=== PATIENT | female | born 1975 | race Caucasian/White ===

== ENCOUNTER 2023-04-29 18:06 | Emergency (ER) | payer OTHER, SELFPAY ==
[2023-04-29 18:23] VITALS: BP 124/87; PULSE 63; RESP 18; TEMP 36.6; O2SAT 97; BMI 30.1
--- NOTE | 2023-04-29 18:37 | XR_ITS ---
The [address] [address] Patient Name: LARRY TAM MRN: [id number] date: 1975 Sex: F Assigned Patient Location: ER Current Patient Location: ED.MAIN Accession/Order Number: [id number] Exam Date: 04/29/2023 18:43 Report Date: 04/29/2023 19:35 At the request of: JACOB OQUENDO Procedure: XR finger LT min 2V PLAIN FILM OF FINGER LEFT HISTORY: Smashed left index finger in a door in a 47-year-old female TECHNIQUE: 3 of the left index finger are submitted for review. COMPARISON: None. FINDINGS: There is an osseous avulsion seen involving the base of the base of the distal phalanx with intra-articular extension. Physis is fused. Soft tissues are edematous.. Bone mineralization is within normal limits. Joint spaces are otherwise maintained. IMPRESSION: Volar plate injury of the base of the anterior left distal phalanx index finger left hand. Please correlate clinically to exclude open fracture given its approximation with the inferior nailbed. Electronically authenticated by: KEITH LASSITER Date: 04/29/2023 19:35
--- NOTE | 2023-04-29 18:58 | ED_ITS ---
HPI - Extremity Injury (Upper) General Chief Complaint: Extremity Injury, Upper Stated Complaint: upper left hand Time Seen by Provider: 04/29/23 18:36 Source: patient and family Mode of arrival: walk-in Limitations: no limitations History of Present Illness HPI narrative: Patient is a 47-year-old female left-hand dominant who presents to the Emergency Room with concerns of left index finger pain. Patient states prior to arrival she shut her finger in a car door, no skin injury. Pain 8/10 throbbing aching localized to the distal tip of her left index finger. There is a slight droop noted. Patient works at a local [employer]. Patient given ice pack on arrival. Other Extremity Injury: Left: fingers (Index finger) Hand dominance: left Place: Reports outdoors Severity: moderate Relieving factors: Reports none Related Data Home Medications Medication Instructions Recorded Confirmed clobetasol 0.05 % scalp solution 1 applic topical DAILY 04/30/23 05/01/23 ferrous sulfate 143 mg (45 mg 143 mg PO DAILY 04/30/23 05/01/23 iron) tablet,extended release (Slow Release Iron) gabapentin 600 mg tablet 600 mg PO BID 04/30/23 05/01/23 ibuprofen 800 mg tablet 800 mg PO Q6H PRN pain 04/30/23 05/01/23 liothyronine 5 mcg tablet 10 mcg PO DAILY 04/30/23 05/01/23 metoprolol succinate 100 mg 150 mg PO DAILY 04/30/23 05/01/23 tablet,extended release 24 hr pantoprazole 40 mg tablet,delayed 40 mg PO BID 04/30/23 05/01/23 release prazosin 5 mg capsule 5 mg PO DAILY 04/30/23 05/01/23 progesterone 100 mg PO .QD 04/30/23 05/01/23 simvastatin 40 mg tablet 40 mg PO DAILY 04/30/23 05/01/23 cholecalciferol (vitamin D3) 125 125 mcg PO DAILY 05/01/23 05/01/23 mcg (5,000 unit) capsule ezetimibe 10 mg tablet 10 mg PO DAILY 05/01/23 05/01/23 lurasidone 20 mg tablet (Latuda) 20 mg PO DAILY 05/01/23 05/01/23 albuterol 90 mcg/actuation aerosol 90 mcg inhalation Q4H PRN 05/02/23 05/02/23 inhaler shortness of breath budesonide-formoterol HFA 160 2 inh inhalation BID 05/02/23 05/02/23 mcg-4.5 mcg/actuation aerosol inhaler ketoconazole 2 % shampoo 1 applic topical DAILY 05/02/23 05/02/23 sucralfate 1 gram tablet 1 g PO Q6H 05/02/23 05/02/23 tiotropium bromide 1.25 2 inh inhalation DAILY 05/02/23 05/02/23 mcg/actuation mist for inhalation (Spiriva Respimat) Previous Rx's Medication Instructions Recorded aspirin 325 mg tablet 81 mg PO QD@0900 #30 tabs 05/03/23 Allergies Allergy/AdvReac Type Severity Reaction Status Date / Time Sulfa (Sulfonamide Allergy Severe Anaphylaxis Verified 05/01/23 11:55 Antibiotics) clarithromycin [From Biaxin] AdvReac Severe Verified 05/01/23 11:43 lamotrigine [From Lamictal] AdvReac Severe Verified 05/01/23 11:43 Penicillins AdvReac Severe Verified 05/01/23 11:43 Review of Systems ROS Constitutional Denies: fever or chills Integumentary/Breast Denies: rash [facility] Medical History (Updated 05/01/23 @ 15:06 by Migdalia Giang MD) Surgical History (Updated 04/30/23 @ 14:57 by Dannielle Cleveland) Social History Gender Identity: female Exam Narrative Exam Narrative: Nurse's notes and vital signs reviewed. Patient is not hypoxic. General: The patient appears well and in no apparent distress. Patient is resting comfortably on cart. Skin: Warm, dry, no pallor noted. Head: Normocephalic, atraumatic Eye: Normal conjunctiva Respiratory: Patient is in no distress Musculoskeletal: The left hand shows no obvious deformity. There is slight droop of the distal phalanx of the left index finger with bruising noted to the base of the nail matrix, no evidence of nail avulsion. There was minimal swelling noted dip joint. The patient had limited ROM due to pain. The patient had tenderness noted on the dorsal aspect of distal phalanx.. The patient had no tenderness in the anatomical snuff box. The patient had no pain with axial loading of the thumb. Pulses are intact at brachial and radial 2+. There was no deficit at the elbow or shoulder. The patient has normal capillary refill to all distal digits. The patient has no evidence of cyanosis or mottling. The patient is able to flex and extend all digits without difficulty. Neurological: A&O x4, normal sensory, normal motor Psychiatric: Cooperative Constitutional Vital Signs, click to edit/add: Vital Signs - 24 hr 04/29/23 18:23 Temperature 98 F Pulse Rate [Monitor] 63 Respiratory Rate 18 Blood Pressure [Right Arm] 124/87 H Pulse Oximetry 97 Oxygen Delivery Method Room Air Course Vital Signs Vital signs: Vital Signs Temperature 98 F 04/29/23 18:23 Pulse Rate 63 04/29/23 18:23 Respiratory Rate 18 04/29/23 18:23 Blood Pressure 124/87 H 04/29/23 18:23 Pulse Oximetry 97 04/29/23 18:23 Oxygen Delivery Method Room Air 04/29/23 18:23 Temperature 98 F 04/29/23 18:23 Pulse Rate 63 04/29/23 18:23 Respiratory Rate 18 04/29/23 18:23 Blood Pressure 124/87 H 04/29/23 18:23 Pulse Oximetry 97 04/29/23 18:23 Oxygen Delivery Method Room Air 04/29/23 18:23 MDM - Extremity Injury (Upper) MDM Narrative Medical decision making narrative: Patient was placed in a size 4 stack splint, neurovascular intact status post application, we discussed x-ray with concern of avulsion fracture dorsal aspect distal phalanx and clinical exam concerning for droop with likely mallet finger. Patient has very minimal extension at the DIP joint. No evidence of swan-neck deformity. Strongly recommend follow-up with orthopedics. We discussed wearing the splint day and night , keeping the finger in extension even with removal of splint to be held manually. Patient verbalizes understanding, will contact orthopedics for further follow-up The patient is to followup with ORTHO in next 2-3 days or to return to the emergency department should any of the signs or symptoms worsen or new symptoms develop. Patient had questions answered. The patient agrees with the following Diagnosis and Treatment plan and the patient will be discharged home. Discharge Plan Discharge Chief Complaint: Extremity Injury, Upper Clinical Impression: Mallet deformity of left index finger Patient Disposition: Home, Self-Care Time of Disposition Decision: 18:59 Condition: Good Prescriptions / Home Meds: No Action progesterone 100 mg PO .QD gabapentin 600 mg tablet 600 mg PO BID ibuprofen 800 mg tablet 800 mg PO Q6H PRN (Reason: pain) metoprolol succinate 100 mg tablet extended release 24 hr 150 mg PO DAILY liothyronine 5 mcg tablet 10 mcg PO DAILY simvastatin 40 mg tablet 40 mg PO DAILY prazosin 5 mg capsule 5 mg PO DAILY pantoprazole 40 mg tablet,delayed release (DR/EC) 40 mg PO BID clobetasol 0.05 % solution 1 applic TOPICAL DAILY Rx Instructions: M- then off on the weekends Slow Release Iron 143 mg (45 mg iron) tablet extended release 143 mg PO DAILY cholecalciferol (vitamin D3) 125 mcg (5,000 unit) capsule 125 mcg PO DAILY ezetimibe 10 mg tablet 10 mg PO DAILY lurasidone [Latuda] 20 mg tablet 20 mg PO DAILY budesonide-formoterol 160-4.5 mcg/actuation HFA aerosol inhaler 2 inh inhalation BID Spiriva Respimat 1.25 mcg/actuation mist 2 inh inhalation DAILY sucralfate 1 gram tablet 1 g PO Q6H ketoconazole 2 % shampoo 1 applic topical DAILY Rx Instructions: WASH SCALP DAILY THEN RINSE albuterol 90 mcg/actuation aerosol 90 mcg inhalation Q4H PRN (Reason: shortness of breath) Rx Instructions: 2 PUFFS inhaled; aspirin 325 mg Tablet 81 mg PO QD@0900 Qty: 30 0RF Additional Instructions: Description In a mallet injury, when an object hits the tip of the finger or thumb, the force of the blow causes a tear near the insertion (attachment) of the extensor tendon?at the last joint of the digit. While the force to cause this injury is typically large, a minor force, such as tucking in a bed sheet, will sometimes cause a mallet finger. The injury may either rupture the middle of the tendon or pull the tendon away from the place where it attaches to the finger bone (distal phalanx). In some cases, a small piece of bone is pulled away along with the tendon. This is called an avulsion injury. Sometimes, the avulsion fracture can be quite large and cause instability of the affected joint. In those cases, surgery may be needed. Stand Alone Forms: Portal Instructions Referrals: Wan Obrien MD [Primary Care Provider] - 1 week Follow Up Appointments: Call Orthopedics for follow up. DR. Reaves [facility], or Dr. Keita Discharge Date/Time: 04/29/23 19:38
== END 2023-04-29 19:38 | disposition home or self-care (01) ==
LOC: ER 19:09
PROVIDERS: Emergency Provider Emergency Medicine; PCP Family Medicine
DX: S69.82XA Other specified injuries of left wrist, hand and finger(s), initial encounter (principal); W23.0XXA Caught, crushed, jammed, or pinched between moving objects, initial encounter
CPT/HCPCS: 73140; 99283

== ENCOUNTER 2023-04-30 13:57 | Outpatient (OUT) | payer OTHER, SELFPAY ==
--- NOTE | 2023-04-30 14:38 | PM.CN ---
Consult Note: HPI Data of Consult Patient: new to practice Consult date: 04/30/23 Requesting Physician: Ramon Rivas MD Primary Care Provider: Wan Obrien MD Consult Narrative Reason for consult: Low back pain Narrative: This is a pleasant 47-year-old female who presents for evaluation. She notes increasing axial low back pain that is worsened with ambulation. She is very active at work, so this makes it increasingly difficult for her to complete her job. She previously underwent lumbar facet injections many years ago, which provided substantial relief. She engages in provider directed home exercises, which provide limited relief. She otherwise denies adverse medication side effects or loss of bowel or bladder control. cc:: CC: Ramon Rivas MD Review of Systems ROS Status of ROS 10 or more systems reviewed and unremarkable except as noted in history and below Meds Home Medications and Allergies Allergies Allergy/AdvReac Type Severity Reaction Status Date / Time clarithromycin [From Biaxin] AdvReac Severe Verified 04/29/23 18:30 lamotrigine [From Lamictal] AdvReac Severe Verified 04/29/23 18:30 Penicillins AdvReac Severe Verified 04/29/23 18:30 Sulfa (Sulfonamide AdvReac Severe Anaphylaxis Verified 04/29/23 18:30 Antibiotics) Exam Constitutional: Common normals: no apparent distress, oriented x3 and healthy appearing Respiratory: Common normals: normal respiratory effort Effort & inspection: able to speak in complete sentences Back & Pelvis: Other: tenderness to palpation throughout the lumbar spine. Pain is elicited with flexion, extension, and lateral rotation of the lumbar spine. Facet loading maneuvers are positive bilaterally. Coordination remains intact. Gait remains nonantalgic. Extremity: Common normals: normal to inspection Neuro: Common normals: oriented x3, CN's II-XII intact bilaterally and no focal motor deficits Psych: Common normals: mental status grossly normal and cooperative Skin: Common normals: no rashes or lesions noted General skin exam: no rashes or lesions noted Assessment and Plan Assessment and Plan (1) Lumbar spondylosis: Plan This is a pleasant 47-year-old female who presents for evaluation. She has failed physical and medical modalities, as listed above. As noted, she previously underwent lumbar facet injections, which provided substantial relief. She has not had any imaging for several years, so at this point, given her axial pain, I would like her to undergo a lumbar x-ray for further information. Provided that there is no acute pathology, she would likely benefit from diagnostic bilateral L3, L4, L5 medial branch blocks with the intention of proceeding to radiofrequency ablation. She is in agreement with this plan. Medications were reviewed, and no changes were made at this time. She will follow-up after the procedure is completed.
== END 2023-04-30 13:58 ==
PROVIDERS: PCP Family Medicine; Visit Provider Anesthesiology
DX: M47.816 Spondylosis without myelopathy or radiculopathy, lumbar region (principal)
CPT/HCPCS: G0463

== ENCOUNTER 2023-05-01 11:25 | Observation (INO) | payer OTHER, SELFPAY ==
[2023-05-01] VITALS (16 sets, daily range): BP systolic 120–155; BP diastolic 78–99; PULSE 78–97; RESP 12–26; TEMP 36.6–36.7; O2SAT 94–99; BMI 30.1
--- NOTE | 2023-05-01 11:28 | CT_ITS ---
The [address] [address] Patient Name: LARRY TAM MRN: [id number] date: 1975 Sex: F Assigned Patient Location: ER Current Patient Location: PM Accession/Order Number: [id number] Exam Date: 05/01/2023 11:20 Report Date: 05/01/2023 11:41 At the request of: MARYBEL SWANSON Procedure: CT stroke head/brain wo con HEAD CT WITHOUT CONTRAST: 05/01/2023 11:20 AM EDT [address] Clinical Data: Facial Droop Comparison: No previous Unenhanced axial data from base to vertex. INTRA-AXIAL: No acute hemorrhage. No acute infarction is evident. EXTRA-AXIAL: Short segment slight hyperdensity along the falx cerebri superior to the level of the lateral ventricles. No focal fluid collection. BRAIN VOLUME: Unremarkable for age. VENTRICLES: No hydrocephalus PARANASAL SINUSES: No air-fluid levels in the included aspects. MASTOIDS: Clear. CALVARIUM: No acute finding. EXTRACALVARIAL: No acute findings IMPRESSION: 1. No evidence of acute infarction. No evidence of acute intra-axial hemorrhage. 2. Minimal short segment slight hyperdensity mid falx cerebri. Statistically this most likely represents developing calcification All CT scans at this facility use dose modulation, iterative reconstruction, and/or weight based dosing when appropriate to reduce radiation dose to as low as reasonably achievable. Electronically authenticated by: RADHA MACIAS Date: 05/01/2023 11:41
--- NOTE | 2023-05-01 11:40 | ECG_ITS ---
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
--- NOTE | 2023-05-01 11:45 | ED.GENADUL1 ---
HPI - General Adult General Chief complaint: Weakness Stated complaint: AFASIA Time Seen by Provider: 05/01/23 13:48 Source: patient and family Mode of arrival: ambulance History of Present Illness HPI narrative: Patient presents to the emergency department via EMS with a complaint of mental status changes and aphasia. Patient states she was doing well until approximately 7 PM last night. She was having difficulty finding her words. She takes gabapentin twice a day for fibromyalgia she states she was feeling better so she went to sleep. This morning she got up feeling the same way went to work after she was at work they noted her to be confused, disoriented, not finding her words, having difficulty speaking so they called EMS. Patient states she has this kind of episodes at least 4 times a month. She states she has some old the time they're brief but they resolve spontaneously. She has never seen a primary care doctor or any physician to evaluate his episodes. She denies any headache. She denies any visual disturbance. She states her face was drooping but that was not confirmed with ems nor RN. Patient denied any extremity weakness, or paresthesias. She denies any trauma. She place of nausea denies any vomiting, diarrhea, constipation, or abdominal pain. She denies any chest, shortness of breath. She denies any palpitations. Denies any hematuria, dysuria. She does not take blood thinners. she has no previous history of strokes. Related Data Home Medications Medication Instructions Recorded Confirmed clobetasol 0.05 % scalp solution topical 04/30/23 estradiol 2 mg tablet (Estrace) 2 mg PO DAILY 04/30/23 04/30/23 ferrous sulfate 143 mg (45 mg mg PO 04/30/23 iron) tablet,extended release (Slow Release Iron) gabapentin 600 mg tablet mg 04/30/23 ibuprofen 800 mg tablet 800 mg PO Q6H PRN pain 04/30/23 04/30/23 liothyronine 5 mcg tablet mcg 04/30/23 metoprolol succinate 100 mg mg PO 04/30/23 tablet,extended release 24 hr pantoprazole 40 mg tablet,delayed mg PO 04/30/23 release prazosin 5 mg capsule mg 04/30/23 progesterone 100 mg PO .QD 04/30/23 04/30/23 simvastatin 40 mg tablet mg 04/30/23 cholecalciferol (vitamin D3) 125 125 mcg PO DAILY 05/01/23 05/01/23 mcg (5,000 unit) capsule ezetimibe 10 mg tablet 10 mg PO DAILY 05/01/23 05/01/23 lurasidone 20 mg tablet (Latuda) 20 mg PO DAILY 05/01/23 05/01/23 Allergies Allergy/AdvReac Type Severity Reaction Status Date / Time Sulfa (Sulfonamide Allergy Severe Anaphylaxis Verified 05/01/23 11:55 Antibiotics) clarithromycin [From Biaxin] AdvReac Severe Verified 05/01/23 11:43 lamotrigine [From Lamictal] AdvReac Severe Verified 05/01/23 11:43 Penicillins AdvReac Severe Verified 05/01/23 11:43 Review of Systems ROS Narrative ROS: Unless otherwise stated in this report the patient's positive and negative responses for review of systems for constitutional, eyes, ENT, cardiovascular, respiratory, gastrointestinal, neurological, , musculoskeletal and integument systems and related systems to the presenting problem are either stated in the history of present illness or were not pertinent or were negative for the symptoms and/or complaints related to the presenting medical problem. [facility] Medical History (Updated 05/01/23 @ 15:06 by Migdalia Giang MD) Surgical History (Updated 04/30/23 @ 14:57 by Dannielle Cleveland) Social History Gender Identity: female Exam Narrative Exam Narrative: Nurses notes and vital signs reviewed and patient is not hypoxic. General: Nontoxic, Well-appearing and in no apparent distress. Skin: Warm, dry, no pallor noted. No Rash Head: Normocephalic, atraumatic. Neck: Supple, non-tender. Eye: Pupils are equal, round and EOMI. No scleral icterus. Ears, Nose, Mouth, and Throat: TM clear, no posterior oropharynx erythema or nasal mucosal hypertrophy, uvula is mid-line Oral mucosa is moist Cardiovascular: Regular Rate and Rhythm without murmur, gallop or rub. Respiratory: No accessory muscle use or respiratory distress. Lungs are clear to auscultation, no wheezing, rales or rhonchi Chest Wall: no tenderness Back: No midline thoracic or lumbar vertebral tenderness. No CVA tenderness Musculoskeletal: normal ROM, no calf or popliteal tenderness, no lower extremity edema/swelling GI: Abdomen is soft, non-distended. Normal bowel sounds. No masses appreciated. No tenderness to palpation. No rebound, guarding, or rigidity noted. Neurological: A&O x3. mild aphasia, NIHSS1 No cranial nerve dysfunction observed. No truncal ataxia. Moves all extremities. Sensation intact. Psychiatric: Cooperative and interactive. Normal mood and affect. Constitutional Vital Signs - 24 hr 05/01/23 11:32 05/01/23 11:31 05/01/23 11:34 Temperature 97.8 F Pulse Rate 90 Pulse Rate [Monitor] 87 Respiratory Rate 26 H 20 Blood Pressure 136/98 H Blood Pressure [Right Arm] 136/98 H Pulse Oximetry 98 98 96 Oxygen Delivery Method Room Air 05/01/23 11:34 05/01/23 11:34 05/01/23 12:00 Temperature Pulse Rate 92 H 97 H Pulse Rate [Monitor] Respiratory Rate 15 17 Blood Pressure 136/98 H 120/87 H Blood Pressure [Right Arm] Pulse Oximetry 97 98 Oxygen Delivery Method 05/01/23 12:41 05/01/23 12:42 05/01/23 12:42 Temperature Pulse Rate 92 H 84 91 H Pulse Rate [Monitor] Respiratory Rate 19 16 16 Blood Pressure 142/98 H Blood Pressure [Right Arm] Pulse Oximetry 99 97 97 Oxygen Delivery Method 05/01/23 13:01 05/01/23 13:30 05/01/23 13:30 Temperature Pulse Rate 82 85 87 Pulse Rate [Monitor] Respiratory Rate 18 19 22 Blood Pressure 137/94 H 129/98 H 129/98 H Blood Pressure [Right Arm] Pulse Oximetry 96 95 96 Oxygen Delivery Method 05/01/23 14:00 05/01/23 14:00 05/01/23 14:30 Temperature Pulse Rate 80 82 82 Pulse Rate [Monitor] Respiratory Rate 23 21 12 Blood Pressure 131/88 H 131/88 H 132/94 H Blood Pressure [Right Arm] Pulse Oximetry 97 96 97 Oxygen Delivery Method 05/01/23 15:00 05/01/23 15:30 Temperature Pulse Rate 82 88 Pulse Rate [Monitor] Respiratory Rate 14 14 Blood Pressure 155/96 H 123/99 H Blood Pressure [Right Arm] Pulse Oximetry 96 95 Oxygen Delivery Method Course Reevaluation(s) Reevaluation #1: Dr Biswas pt discussed w dr biswas who adv pt can stay at [facility] w a stroke consultation. He states he does not think that this are transient ischemic attacks however give patient one aspirin and admitted her for further workup. pt not tpa candidate Reevaluation #2: Patient was discussed with Dr. Obrien who will admit the patient. Vital Signs Vital signs: Vital Signs Pulse Oximetry 98 05/01/23 11:31 Temperature 98.1 F 05/01/23 16:23 Pulse Rate 87 05/01/23 16:23 Respiratory Rate 18 05/01/23 16:23 Blood Pressure 122/78 H 05/01/23 16:23 Pulse Oximetry 95 05/01/23 16:23 Oxygen Delivery Method Room Air 05/01/23 16:23 Medical Decision Making Lab Data Labs: Lab Results 05/01/23 05/01/23 05/01/23 Range/Units 12:49 13:45 13:50 WBC 5.9 (4.0-11.0) 10^3/uL RBC 3.74 L (4.20-5.40) 10^6/uL Hgb 11.1 L (12.0-16.0) g/dL Hct 33.3 L (36.0-48.0) % MCV 89.0 (81.0-99.0) fL MCH 29.7 (26.7-34.0) pg MCHC 33.3 (29.9-35.2) g/dL RDW 12.6 (11.0-15.0) % Plt Count 265 (150-450) 10^3/uL MPV 9.5 (9.5-13.5) fL Neut % (Auto) 55.2 (43.0-75.0) % Lymph % (Auto) 32.0 (20.5-60.0) % Wilkin % (Auto) 9.9 (1.7-12.0) % Eos % (Auto) 2.1 (0.9-7.0) % Baso % (Auto) 0.5 (0.2-2.0) % Neut # (Auto) 3.2 (1.4-6.5) 10^3/uL Lymph # (Auto) 1.9 (1.2-3.8) 10^3/uL [place] # (Auto) 0.6 (0.3-0.8) 10^3/uL Eos # (Auto) 0.1 (0.0-0.7) 10^3/uL Baso # (Auto) 0.0 (0.0-0.1) 10^3/uL PT 10.2 (9.0-11.6) sec INR 0.96 APTT 27.6 (22.3-36.2) sec Sodium 139 (136-145) mmol/L Potassium 3.6 (3.5-5.1) mmol/L Chloride 105 (98-107) mmol/L Carbon Dioxide 27.5 (21.0-32.0) mmol/L Anion Gap 10.1 BUN 10.0 (7.0-18.0) mg/dL Creatinine 0.87 (0.55-1.02) mg/dL Est GFR ( Amer) >60 (>=60) Est GFR (Non-Af Amer) >60 (>=60) BUN/Creatinine Ratio 11.5 Glucose 96 (74-106) mg/dL Calcium 8.6 (8.5-10.1) mg/dL Total Bilirubin 0.2 (0.2-1.0) mg/dL AST 15 (15-37) U/L ALT 27 (14-59) U/L Troponin I High Sens <4.0 L (4.0-51.3) pg/mL Total Protein 6.4 (6.4-8.2) g/dL Albumin 3.4 (3.4-5.0) g/dL Globulin 3.0 g/dL Albumin/Globulin Ratio 1.1 HCG, Quant <1 mIU/mL Urine Color Lt. yellow (YELLOW) Urine Clarity Clear (CLEAR) Urine pH 6.0 (5.0-9.0) Ur Specific [place] <=1.005 A (1.005-1.025) Urine Protein Negative (NEG/TRACE) mg/dL Urine Glucose (UA) Negative (NEGATIVE) mg/dL Urine Ketones Negative (NEGATIVE) mg/dL Urine Occult Blood Negative (NEGATIVE) Urine Nitrite Negative (NEGATIVE) Urine Bilirubin Negative (NEGATIVE) Urine Urobilinogen 0.2 (0.2-1.0) EU/dL Ur Leukocyte Esterase Negative (NEGATIVE) Urine RBC 0-2 (0-2) #/HPF Urine WBC 0-2 A (NONE SEEN) #/HPF Ur Squamous Epith Cells Moderate A (NONE/RARE) #/LPF Urine Opiates Screen Negative (NEGATIVE) Ur Buprenorphine Scrn Negative (NEGATIVE) Ur Oxycodone Screen Negative (NEGATIVE) Urine Methadone Screen Negative (NEGATIVE) Ur Propoxyphene Screen Negative (NEGATIVE) Ur Barbiturates Screen Negative (NEGATIVE) U Tricyclic Antidepress Negative (NEGATIVE) Ur Phencyclidine Scrn Negative (NEGATIVE) Ur Amphetamines Screen Negative (NEGATIVE) U Methamphetamines Scrn Negative (NEGATIVE) U Benzodiazepines Scrn Negative (NEGATIVE) Urine Cocaine Screen Negative (NEGATIVE) U Cannabinoids Screen Negative (NEGATIVE) ECG Data Attestation: ?I have reviewed the pertinent ECG results. Critical Care Time Critical Care Time Critical Care Time: Yes Total Critical Care Time: 35 Attestation: Critical Care Time: 35 minutes, critical care time is separate from any procedures that are performed. The following was considered in the determination of critical care but not limited to the level medical decision-making, intensive cardiac and/or respiratory monitor, frequent vital sign monitoring, evaluation of laboratory studies, evaluation of a radiographic studies, oxygen monitoring and constant monitoring. Discharge Plan Discharge Chief Complaint: Weakness Clinical Impression: Aphasia, Altered mental status Patient Disposition: Admitted as Observation Time of Disposition Decision: 15:05 Condition: Good Discharge Date/Time: 05/01/23 16:10
--- NOTE | 2023-05-01 12:02 | XR_ITS ---
The [address] [address] Patient Name: LARRY TAM MRN: [id number] date: 1975 Sex: F Assigned Patient Location: ED.MAIN Current Patient Location: ER Accession/Order Number: [id number] Exam Date: 05/01/2023 12:27 Report Date: 05/01/2023 12:58 At the request of: MARYBEL SWANSON Procedure: XR chest 1V EXAM: Chest x-ray HISTORY: CVA COMPARISON: None. TECHNIQUE: Single view of the chest FINDINGS: Heart and vascularity are unremarkable. Lungs are free of focal infiltrates. EKG leads overlie the chest. IMPRESSION: No acute heart or lung disease identified. Electronically authenticated by: FAUSTINO JO Date: 05/01/2023 12:58
--- NOTE | 2023-05-01 12:02 | CT_ITS ---
The [address] [address] Patient Name: LARRY TAM MRN: [id number] date: 1975 Sex: F Assigned Patient Location: ER Current Patient Location: ER Accession/Order Number: [id number] Exam Date: 05/01/2023 12:30 Report Date: 05/01/2023 13:25 At the request of: MARYBEL SWANSON Procedure: CT angio neck CT angio head, CT angio neck, 05/01/2023 12:30 PM EDT INDICATION: CVA. Facial droop, aphasia, weakness COMPARISON: Noncontrast CT of the head the 05/01/2023, MRI of the brain 02/18/2022. TECHNIQUE: Axial images of the head and neck were obtained with administration of IV contrast. Multiplanar reformatted images were generated and reviewed as needed. Dose reduction techniques were achieved by using automated exposure control and/or adjustment of mA and/or kV according to patient size and/or use of iterative reconstruction technique. FINDINGS: CTA NECK Aortic arch: No significant stenosis of the origins of the major arch vessels. Left carotid system: No evidence of significant (50% or greater) stenosis or occlusion. Right carotid system: No evidence of significant (50% or greater) stenosis or occlusion. Vertebral arteries: Codominant. No evidence of significant (50% or greater) stenosis or occlusion. No aneurysm, dissection or occlusion. The thyroid gland is unremarkable. No focal consolidation at the lung apices. No acute fracture or dislocation. IMPRESSION: Patent neck CTA CTA BRAIN The distal cervical, petrous, cavernous and supraclinoid segments of the internal carotid artery are patent bilaterally. The cerebral arteries are patent. No aneurysm, dissection or occlusion. No enhancing intracranial mass or active extravasation of contrast. Visualized portions of the dural sinuses cortical veins demonstrate no occlusion. 8 mm mucous retention cyst/polyp within the left maxillary sinus. No acute skull fracture. IMPRESSION: Patent head CTA Electronically authenticated by: BLADIMIR PALOMO Date: 05/01/2023 13:25
--- NOTE | 2023-05-01 12:02 | ECG_ITS ---
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
--- NOTE | 2023-05-01 12:02 | CT_ITS ---
The [address] [address] Patient Name: LARRY TAM MRN: [id number] date: 1975 Sex: F Assigned Patient Location: ER Current Patient Location: ER Accession/Order Number: [id number] Exam Date: 05/01/2023 12:30 Report Date: 05/01/2023 13:25 At the request of: MARYBEL SWANSON Procedure: CT angio head CT angio head, CT angio neck, 05/01/2023 12:30 PM EDT INDICATION: CVA. Facial droop, aphasia, weakness COMPARISON: Noncontrast CT of the head the 05/01/2023, MRI of the brain 02/18/2022. TECHNIQUE: Axial images of the head and neck were obtained with administration of IV contrast. Multiplanar reformatted images were generated and reviewed as needed. Dose reduction techniques were achieved by using automated exposure control and/or adjustment of mA and/or kV according to patient size and/or use of iterative reconstruction technique. FINDINGS: CTA NECK Aortic arch: No significant stenosis of the origins of the major arch vessels. Left carotid system: No evidence of significant (50% or greater) stenosis or occlusion. Right carotid system: No evidence of significant (50% or greater) stenosis or occlusion. Vertebral arteries: Codominant. No evidence of significant (50% or greater) stenosis or occlusion. No aneurysm, dissection or occlusion. The thyroid gland is unremarkable. No focal consolidation at the lung apices. No acute fracture or dislocation. IMPRESSION: Patent neck CTA CTA BRAIN The distal cervical, petrous, cavernous and supraclinoid segments of the internal carotid artery are patent bilaterally. The cerebral arteries are patent. No aneurysm, dissection or occlusion. No enhancing intracranial mass or active extravasation of contrast. Visualized portions of the dural sinuses cortical veins demonstrate no occlusion. 8 mm mucous retention cyst/polyp within the left maxillary sinus. No acute skull fracture. IMPRESSION: Patent head CTA Electronically authenticated by: BLADIMIR PALOMO Date: 05/01/2023 13:25
--- NOTE | 2023-05-01 12:04 | PC.NURSE ---
IV start per EMS
[2023-05-01] MEDS: ONDANSETRON PF 4 MG/2 ML VIAL IV (12:38)
[2023-05-01 13:28] LABS: Alanine Aminotransferase 27 U/L (14-59); Albumin Globulin Ratio 1.1; Albumin Level 3.4 g/dL (3.4-5.0); Alkaline Phosphatase 51 U/L (46-116); Anion Gap 10.1; Aspartate Amino Transferase 15 U/L (15-37); BUN Creatinine Ratio 11.5; Bilirubin Total 0.2 mg/dL (0.2-1.0); Calcium 8.6 mg/dL (8.5-10.1); Carbon Dioxide 27.5 mmol/L (21.0-32.0); Chloride 105 mmol/L (98-107); Estimated GFR (African America >60 (>=60); Estimated GFR (Non-African Ame >60 (>=60); Glucose 96 mg/dL (74-106); HCG Quantitative <1 mIU/mL; Potassium 3.6 mmol/L (3.5-5.1); Sodium 139 mmol/L (136-145); Total Protein 6.4 g/dL (6.4-8.2); Troponin I High Sensitivity <4.0 pg/mL (4.0-51.3)
[2023-05-01 13:46] LABS: Basophils Percent Auto 0.5 % (0.2-2.0); Eosinophils Absolute Auto 0.1 10^3/uL (0.0-0.7); Eosinophils Percent Auto 2.1 % (0.9-7.0); Hematocrit 33.3 % (36.0-48.0); Hemoglobin 11.1 g/dL (12.0-16.0); Immature Granulocytes Abs Auto 0.02 10^3/uL (0.00-0.03); Immature Granulocytes Pct Auto 0.3 % (0.0-0.5); Lymphocytes Absolute Auto 1.9 10^3/uL (1.2-3.8); Mean Corpuscular HGB Conc 33.3 g/dL (29.9-35.2); Mean Corpuscular Hemoglobin 29.7 pg (26.7-34.0); Mean Platelet Volume 9.5 fL (9.5-13.5); Monocytes Absolute Auto 0.6 10^3/uL (0.3-0.8); Monocytes Percent Auto 9.9 % (1.7-12.0); Neutrophils Absolute Auto 3.2 10^3/uL (1.4-6.5); Neutrophils Percent Auto 55.2 % (43.0-75.0); Platelet Count 265 10^3/uL (150-450); Red Blood Count 3.74 10^6/uL (4.20-5.40); Red Cell Distribution Width 12.6 % (11.0-15.0); White Blood Count 5.9 10^3/uL (4.0-11.0)
[2023-05-01 13:58] LABS: Bilirubin Urine NEGATIVE (NEGATIVE); Blood Urine NEGATIVE (NEGATIVE); Clarity Urine CLEAR (CLEAR); Color Urine LT. YELLOW (YELLOW); Glucose Urine UA NEGATIVE (NEGATIVE); Ketones Urine NEGATIVE (NEGATIVE); Leukocyte Esterase Urine NEGATIVE (NEGATIVE); Nitrite Urine NEGATIVE (NEGATIVE); Protein Urine NEGATIVE (NEG/TRACE); Specific Gravity Urine <=1.005 (1.005-1.025); Urobilinogen Urine 0.2 EU/dL (0.2-1.0)
[2023-05-01 14:03] LABS: HCG Qualitative Urine* NEGATIVE (NEGATIVE)
[2023-05-01 14:04] LABS: INR 0.96; Partial Thromboplastin Time 27.6 sec (22.3-36.2); Prothrombin Time 10.2 sec (9.0-11.6)
[2023-05-01 14:09] LABS: RBC Urine 0-2 #/HPF (0-2); Squamous Epithelial Cell Urine MODERATE #/LPF (NONE/RARE); WBC Urine 0-2 #/HPF (NONE SEEN)
[2023-05-01 14:22] LABS: Amphetamine Screen Urine NEGATIVE (NEGATIVE); Barbiturates Screen Urine NEGATIVE (NEGATIVE); Benzodiazepines Screen Urine NEGATIVE (NEGATIVE); Buprenorphine Screen Urine NEGATIVE (NEGATIVE); Cannabinoid Screen Urine NEGATIVE (NEGATIVE); Cocaine Screen Urine NEGATIVE (NEGATIVE); Methadone Screen Urine NEGATIVE (NEGATIVE); Methamphetamines Screen Urine NEGATIVE (NEGATIVE); Opiate Screen Urine NEGATIVE (NEGATIVE); Oxycodone Screen Urine NEGATIVE (NEGATIVE); Phencyclidine Screen Urine NEGATIVE (NEGATIVE); Tricyclic Antidepressant Urine NEGATIVE (NEGATIVE)
[2023-05-01] MEDS: ASPIRIN 325 MG TABLET.DR PO (15:22)
--- NOTE | 2023-05-01 16:13 | P.HP_ITS ---
H&P: HPI History of Present Illness Chief complaint: APHASIA ALTERED MENTAL STATUS Narrative: Patient yesterday evening had an episode where she just felt off. Seemed better so went to bed. Woke up went to work, at work started having trouble with her speech and had syncopal episode. No seizure activity noted. Patient has been slow to recover in ER Review of Systems ROS Constitutional Denies: fever or chills Eyes Reports: change in vision (At the time of the episode had trouble with her vision) Ears, nose, mouth, and throat Denies: throat pain Cardiovascular Denies: chest pain Respiratory Denies: shortness of breath Gastrointestinal Denies: abdominal pain Genitourinary Denies: painful urination Musculoskeletal Denies: back pain Integumentary/Breast Denies: rash Neurological Reports: headache and numbness in extremities (Bilateral extremities had tingling just prior to the episode) Psychiatric Denies: anxiety Endocrine Denies: excessive urination Hematologic/Lymphatic Denies: easy bruising Allergic/Immunologic Denies: hives [facility] Medical History (Updated 05/01/23 @ 15:06 by Migdalia Giang MD) Surgical History (Updated 04/30/23 @ 14:57 by Dannielle Cleveland) Meds Home Medications and Allergies Home Medications Medication Instructions Recorded Confirmed Type calcium phosphate,dibasic 77 tab PO .QD 04/30/23 History mg-vitamin D3 400 unit tablet clobetasol 0.05 % scalp solution topical 04/30/23 History estradiol 2 mg tablet (Estrace) 2 mg PO DAILY 04/30/23 04/30/23 History ferrous sulfate 143 mg (45 mg mg PO 04/30/23 History iron) tablet,extended release (Slow Release Iron) gabapentin 600 mg tablet mg 04/30/23 History ibuprofen 800 mg tablet 800 mg PO Q6H PRN pain 04/30/23 04/30/23 History liothyronine 5 mcg tablet mcg 04/30/23 History metoprolol succinate 100 mg mg PO 04/30/23 History tablet,extended release 24 hr pantoprazole 40 mg tablet,delayed mg PO 04/30/23 History release prazosin 5 mg capsule mg 04/30/23 History progesterone 100 mg PO .QD 04/30/23 04/30/23 History simvastatin 40 mg tablet mg 04/30/23 History valacyclovir 1 gram tablet mg 04/30/23 History Allergies Allergy/AdvReac Type Severity Reaction Status Date / Time Sulfa (Sulfonamide Allergy Severe Anaphylaxis Verified 05/01/23 11:55 Antibiotics) clarithromycin [From Biaxin] AdvReac Severe Verified 05/01/23 11:43 lamotrigine [From Lamictal] AdvReac Severe Verified 05/01/23 11:43 Penicillins AdvReac Severe Verified 05/01/23 11:43 Exam Constitutional Vital Signs - 24 hr 05/01/23 11:32 05/01/23 11:31 05/01/23 11:34 Temperature 97.8 F Pulse Rate 90 Pulse Rate [Monitor] 87 Respiratory Rate 26 H 20 Blood Pressure 136/98 H Blood Pressure [Right Arm] 136/98 H Pulse Oximetry 98 98 96 Oxygen Delivery Method Room Air 05/01/23 11:34 05/01/23 11:34 05/01/23 12:00 Temperature Pulse Rate 92 H 97 H Pulse Rate [Monitor] Respiratory Rate 15 17 Blood Pressure 136/98 H 120/87 H Blood Pressure [Right Arm] Pulse Oximetry 97 98 Oxygen Delivery Method 05/01/23 12:41 05/01/23 12:42 05/01/23 12:42 Temperature Pulse Rate 92 H 84 91 H Pulse Rate [Monitor] Respiratory Rate 19 16 16 Blood Pressure 142/98 H Blood Pressure [Right Arm] Pulse Oximetry 99 97 97 Oxygen Delivery Method 05/01/23 13:01 05/01/23 13:30 05/01/23 13:30 Temperature Pulse Rate 82 85 87 Pulse Rate [Monitor] Respiratory Rate 18 19 22 Blood Pressure 137/94 H 129/98 H 129/98 H Blood Pressure [Right Arm] Pulse Oximetry 96 95 96 Oxygen Delivery Method 05/01/23 14:00 05/01/23 14:00 05/01/23 14:30 Temperature Pulse Rate 80 82 82 Pulse Rate [Monitor] Respiratory Rate 23 21 12 Blood Pressure 131/88 H 131/88 H 132/94 H Blood Pressure [Right Arm] Pulse Oximetry 97 96 97 Oxygen Delivery Method 05/01/23 15:00 05/01/23 15:30 05/01/23 16:00 Temperature Pulse Rate 82 88 79 Pulse Rate [Monitor] Respiratory Rate 14 14 17 Blood Pressure 155/96 H 123/99 H 120/90 H Blood Pressure [Right Arm] Pulse Oximetry 96 95 94 L Oxygen Delivery Method HENMT Common normals: normocephalic and head/scalp atraumatic Neck & C-Spine Common normals: full ROM and no lymphadenopathy Lymph Lymphatic: no lymphadenopathy noted Chest Common normals: inspection of chest normal Respiratory Common normals: normal respiratory effort and no retractions Cardio Common normals: no JVD, regular rate, regular rhythm and S1 normal heart sound GI Common normals: Normal to inspection, nondistended, normoactive bowel sounds present Back & Pelvis Common normals: no CVA tenderness Extremity Common normals: normal to inspection Neuro Common normals: oriented x3 and CN's II-XII intact bilaterally (Speech seems sluggish still. No dysarthria obvious. Family agrees) Sensorium/orientation: awake, alert, oriented to person, oriented to place and oriented to time; orientation not impaired Psych Psychiatry clinicians, please identify where your Mental Status Exam is documented: Mental Status Exam documented in the separate MSE Results Labs Labs: Short CBC 05/01/23 Range/Units 12:49 WBC 5.9 (4.0-11.0) 10^3/uL Hgb 11.1 L (12.0-16.0) g/dL Hct 33.3 L (36.0-48.0) % Plt Count 265 (150-450) 10^3/uL BMP 05/01/23 12:49 Sodium 139 Potassium 3.6 Chloride 105 Carbon Dioxide 27.5 BUN 10.0 Creatinine 0.87 Glucose 96 Calcium 8.6 Liver Function 05/01/23 Range/Units 12:49 Total Bilirubin 0.2 (0.2-1.0) mg/dL AST 15 (15-37) U/L ALT 27 (14-59) U/L Albumin 3.4 (3.4-5.0) g/dL Urine 05/01/23 Range/Units 13:45 Urine Color Lt. 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 We will check EEG and MRI scan. Patient also has some significant diaphoresis just prior to happening possible hypoglycemic reaction we will monitor sugars. Consulted telemetry neurology. Cleared by telestroke for admission here Iron deficiency anemia-continue home medications and monitor daily Hypothyroidism-check levels continue with home medications Hypertension-continue with home medications, monitor for fluctuations that may result in the above incident
[2023-05-01] MEDS: ACETAMINOPHEN 325 MG TABLET 650 MG PO (19:12)
[2023-05-01] MEDS: KETOROLAC TROMETHAMINE 30 MG/ML VIAL IVP (20:41)
[2023-05-01 21:20] LABS: Glucometer 137 mg/dL (74-106)
[2023-05-02] VITALS (9 sets, daily range): BP systolic 108–125; BP diastolic 77–80; PULSE 70–89; RESP 16–20; TEMP 36.7–37.2; O2SAT 96–97
[2023-05-02 04:40] LABS: Basophils Percent Auto 0.8 % (0.2-2.0); Eosinophils Percent Auto 0.2 % (0.9-7.0); Hematocrit 35.1 % (36.0-48.0); Hemoglobin 11.8 g/dL (12.0-16.0); Immature Granulocytes Abs Auto 0.01 10^3/uL (0.00-0.03); Immature Granulocytes Pct Auto 0.2 % (0.0-0.5); Lymphocytes Absolute Auto 2.1 10^3/uL (1.2-3.8); Lymphocytes Percent Auto 42.3 % (20.5-60.0); Mean Corpuscular HGB Conc 33.6 g/dL (29.9-35.2); Mean Corpuscular Hemoglobin 29.6 pg (26.7-34.0); Mean Corpuscular Volume 88.2 fL (81.0-99.0); Mean Platelet Volume 9.2 fL (9.5-13.5); Monocytes Absolute Auto 0.5 10^3/uL (0.3-0.8); Neutrophils Absolute Auto 2.4 10^3/uL (1.4-6.5); Neutrophils Percent Auto 47.5 % (43.0-75.0); Platelet Count 261 10^3/uL (150-450); Red Blood Count 3.98 10^6/uL (4.20-5.40); Red Cell Distribution Width 12.4 % (11.0-15.0)
[2023-05-02 04:53] LABS: Alanine Aminotransferase 25 U/L (14-59); Albumin Globulin Ratio 1.1; Albumin Level 3.4 g/dL (3.4-5.0); Alkaline Phosphatase 51 U/L (46-116); Anion Gap 9.9; Aspartate Amino Transferase 14 U/L (15-37); BUN Creatinine Ratio 14.9; Bilirubin Total 0.3 mg/dL (0.2-1.0); Calcium 9.1 mg/dL (8.5-10.1); Carbon Dioxide 28.7 mmol/L (21.0-32.0); Chloride 103 mmol/L (98-107); Estimated GFR (African America >60 (>=60); Estimated GFR (Non-African Ame >60 (>=60); Globulin 3.2 g/dL; Glucose 107 mg/dL (74-106); Potassium 3.6 mmol/L (3.5-5.1); Sodium 138 mmol/L (136-145); Total Protein 6.6 g/dL (6.4-8.2)
[2023-05-02] MEDS: ASPIRIN 325 MG TABLET PO (09:50)
--- NOTE | 2023-05-02 11:13 | P.PN_ITS ---
Progress Note: Subjective Subjective Interval history: No other incidents overnight, patient feels her speech is back to her baseline Exam Constitutional Vital Signs - 24 hr 05/01/23 11:32 05/01/23 11:31 05/01/23 11:34 Temperature 97.8 F Pulse Rate 90 Pulse Rate [Monitor] 87 Respiratory Rate 26 H 20 Blood Pressure 136/98 H Blood Pressure [Right Arm] 136/98 H Pulse Oximetry 98 98 96 Oxygen Delivery Method Room Air 05/01/23 11:34 05/01/23 11:34 05/01/23 12:00 Temperature Pulse Rate 92 H 97 H Pulse Rate [Monitor] Respiratory Rate 15 17 Blood Pressure 136/98 H 120/87 H Blood Pressure [Right Arm] Pulse Oximetry 97 98 Oxygen Delivery Method 05/01/23 12:41 05/01/23 12:42 05/01/23 12:42 Temperature Pulse Rate 92 H 84 91 H Pulse Rate [Monitor] Respiratory Rate 19 16 16 Blood Pressure 142/98 H Blood Pressure [Right Arm] Pulse Oximetry 99 97 97 Oxygen Delivery Method 05/01/23 13:01 05/01/23 13:30 05/01/23 13:30 Temperature Pulse Rate 82 85 87 Pulse Rate [Monitor] Respiratory Rate 18 19 22 Blood Pressure 137/94 H 129/98 H 129/98 H Blood Pressure [Right Arm] Pulse Oximetry 96 95 96 Oxygen Delivery Method 05/01/23 14:00 05/01/23 14:00 05/01/23 14:30 Temperature Pulse Rate 80 82 82 Pulse Rate [Monitor] Respiratory Rate 23 21 12 Blood Pressure 131/88 H 131/88 H 132/94 H Blood Pressure [Right Arm] Pulse Oximetry 97 96 97 Oxygen Delivery Method 05/01/23 15:00 05/01/23 15:30 05/01/23 16:00 Temperature Pulse Rate 82 88 79 Pulse Rate [Monitor] Respiratory Rate 14 14 17 Blood Pressure 155/96 H 123/99 H 120/90 H Blood Pressure [Right Arm] Pulse Oximetry 96 95 94 L Oxygen Delivery Method 05/01/23 16:23 05/01/23 19:39 05/01/23 21:39 Temperature 98.1 F 98.0 F Pulse Rate 87 78 Pulse Rate [Monitor] Respiratory Rate 18 18 Blood Pressure Blood Pressure [Right Arm] 122/78 H 122/79 H Pulse Oximetry 95 96 97 Oxygen Delivery Method Room Air Room Air Room Air 05/02/23 04:30 Temperature 98.1 F Pulse Rate 83 Pulse Rate [Monitor] Respiratory Rate 16 Blood Pressure Blood Pressure [Right Arm] 108/77 Pulse Oximetry 97 Oxygen Delivery Method Room Air HENMT Common normals: normocephalic Chest Common normals: inspection of chest normal Respiratory Common normals: normal respiratory effort, no retractions and no use of accessory muscles Cardio Common normals: no JVD Rate: regular rate Rhythm: regular rhythm Heart sounds: S1 normal and S2 normal GI Common normals: Normal to inspection, nondistended, normoactive bowel sounds present Neuro Common normals: oriented x3, CN's II-XII intact bilaterally, moves all extremities and no focal motor deficits Psych Psychiatry clinicians, please identify where your Mental Status Exam is documented: Mental Status Exam documented in the separate MSE Progress Note: Objective Labs Labs: Short CBC 05/01/23 05/02/23 Range/Units 12:49 04:04 WBC 5.9 5.0 (4.0-11.0) 10^3/uL Hgb 11.1 L 11.8 L (12.0-16.0) g/dL Hct 33.3 L 35.1 L (36.0-48.0) % Plt Count 265 261 (150-450) 10^3/uL BMP 05/01/23 05/02/23 12:49 04:04 Sodium 139 138 Potassium 3.6 3.6 Chloride 105 103 Carbon Dioxide 27.5 28.7 BUN 10.0 14.0 Creatinine 0.87 0.94 Glucose 96 107 H Calcium 8.6 9.1 Liver Function 05/01/23 05/02/23 Range/Units 12:49 04:04 Total Bilirubin 0.2 0.3 (0.2-1.0) mg/dL AST 15 14 L (15-37) U/L ALT 27 25 (14-59) U/L Albumin 3.4 3.4 (3.4-5.0) g/dL Urine 05/01/23 Range/Units 13:45 Urine Color Lt. 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 Appears to be back to her baseline. Needs to continue with work-up for patient safety she has had multiple episodes of this and has been progressively closer and closer together. MRI echo and EEG tomorrow Iron deficiency anemia-continue home medications and monitor daily Hypothyroidism-check levels continue with home medications Hypertension-continue with home medications, monitor for fluctuations that may result in the above incident Change patient to inpatient status as she is continuing to receive medical treatment lasting more than 24 hours. Fall Risk Details Patino Fall Scale Risk Level: Moderate Fall Risk Current Medications: Current Medications Acetaminophen (Acetaminophen 325 Mg Tablet) 650 mg PO Q4H PRN PRN Reason: pain 1-6 Last Admin: 05/01/23 19:12 Dose: 650 mg Aspirin (Aspirin 325 Mg Tablet) 325 mg PO QD@0900 [facility] Last Admin: 05/02/23 09:50 Dose: 325 mg Docusate Sodium (Docusate Sodium 100 Mg Capsule) 100 mg PO TID PRN PRN Reason: Constipation Insulin Aspart (Insulin Aspart 300 Unit/3 Ml Pen) 2 - 14 unit SUBQ [facility]; Protocol Last Admin: 05/02/23 06:43 Dose: Not Given Ketorolac Tromethamine (Ketorolac Tromethamine 30 Mg/Ml Vial) 30 mg IVP Q6H PRN PRN Reason: pain 7-10 Last Admin: 05/01/23 20:41 Dose: 30 mg Lorazepam (Lorazepam 2 Mg/Ml 1 Ml Vial) 1 mg IV ONCE PRN PRN Reason: Seizure Activity Ondansetron HCl (Ondansetron Pf 4 Mg/2 Ml Vial) 4 mg IV Q6H PRN PRN Reason: Nausea And Vomiting Time Spent With Patient Time: Total time spent is greater than 50% in coordination of care (as documented) at patient's floor/unit and/or counseling patient:
[2023-05-02 11:32] LABS: Glucometer 145 mg/dL (74-106)
[2023-05-02] MEDS: ACETAMINOPHEN 325 MG TABLET 650 MG PO (20:55)
[2023-05-02 21:11] LABS: Glucometer 107 mg/dL (74-106)
[2023-05-03] VITALS (13 sets, daily range): BP systolic 124–143; BP diastolic 81; PULSE 64–88; RESP 18–20; TEMP 36.6–36.7; O2SAT 93–98
--- NOTE | 2023-05-03 08:00 | CA_ITS ---
Patient: LARRY TAM Exam Date: 05/03/2023 : 1975 Gender:F Ordering : DR EUGENIO NEVES . Admission #: [id number] Family : Order #: [id number] CLICK HERE TO VIEW EXAM ECHOCARDIOGRAM REPORT PROCEDURE: CA ECHO DOPPLER COMPLETE INDICATIONS: syncope COMPARISON: None. DESCRIPTION: COMPLETE ECHOCARDIOGRAM Real-time transthoracic echocardiography with 2D, M-mode, spectral and color flow Doppler performed. QUALITY: Technical quality was good. LEFT VENTRICLE: Normal chamber size. Mild concentric left ventricular hypertrophy. Global left ventricular systolic function is normal. LV EF: Estimated left ventricular ejection fraction is 60% DIASTOLIC: Normal diastolic function. ATRIAL SEPTUM: LEFT ATRIUM: Normal chamber size. RIGHT ATRIUM: Normal chamber size. RIGHT VENTRICLE: Normal chamber size. Normal right ventricular systolic function. TRICUSPID VALVE: Normal mobility and thickness. No stenosis with trivial regurgitation. Mild pulmonary hypertension. RVSP 36 mmHg MITRAL VALVE: Normal mobility and thickness. No evidence of mitral valve stenosis. There is no mitral annular calcification. Trivial mitral regurgitation. AORTIC VALVE: Normal trileaflet appearance. Thickened aortic valve. Normal leaflet mobility. No evidence of aortic valve stenosis. No aortic regurgitation. AORTIC ROOT: Normal diameter and appearance. PULMONIC VALVE: Normal thickness and mobility. No stenosis. No regurgitation. PERICARDIUM: No evidence of pericardial effusion. IVC: Collapses with inspirations. Normal size. PLEURA: CONCLUSION: 1. Normal ventricular systolic function. LVEF is 60%. 2. Normal diastolic function. 3. No significant valvular dysfunction. 4. Mildly elevated right-sided pressures. 5. No pericardial effusion. Adult Echocardiography Procedure Report Left Ventricle LVEDD (3.7 - 5.6 cm): 3.89 cm LVESD (2.2 - 4.0 cm): 2.58 cm LVIVS thickness (0.6 - 1.2 cm): 1.18 cm LVPW thickness (0.5 - 1.0 cm): 1.05 cm e': 0.08 m/s E - e': 8.28 LVOT Max Gradient: 2.22 mm[Hg] LVOT Area (cm2): 0.74 m/s Peak Velocity (LVOT): 0.74 m/s Mean Velocity (LVOT): 0.51 m/s LVOT Diameter 2.08 cm Left Ventricular Ejection Fraction: 60 % Left Atrium LA Volume Index (2D A2C): 29.87 ml/m2 Left Atrium Systolic Dimension: 3.46 cm Mitral Valve MV E to A Ratio: 1.26 Mitral Valve A-Wave Peak Velocity: 0.55 m/s Mitral Valve E-Wave Peak Velocity: 0.70 m/s Right Ventricle RV Internal Diastolic Dimension: 3.09 cm Aorta AO Root Diam: 2.75 cm Ascending Ao Diam: 3.09 cm Aortic Valve AoV Area (Peak Joce): 1.94 cm2, 1.94 cm2 AoV Area (VTI): 2.06 cm2, 2.06 cm2 Peak Velocity(Antegrade Flow): 1.30 m/s Peak Gradient(Antegrade Flow): 6.78 mm[Hg] Mean Velocity(Antegrade Flow): 0.91 m/s Mean Gradient(Antegrade Flow): 3.78 mm[Hg] Velocity Time Integral: 25.96 cm Tricuspid Valve Peak Velocity (Regurgitant Flow): 2.90 m/s Pulmonic Valve Peak Velocity: 0.89 m/s Peak Gradient: 3.43 mm[Hg], 2.96 mm[Hg] Right Atrium Right Atrium Systolic Pressure: 31.18 ml, 31.18 ml Dictated by: John Acharya M.D. on 05/05/2023 at 10:14 Approved by: John Acharya M.D. on 05/05/2023 at 10:17
--- NOTE | 2023-05-03 09:06 | P.DS_ITS ---
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 Appears to be back to her baseline.? Iron deficiency anemia Hypothyroidism Hypertension- DS: Summary Hospital Course Hospital Course: Patient was admitted after syncopal episode. She has some dysarthria just prior to that. She has had episodes of this coming and going off and on for last month but deftly getting more frequent. The 1 in the day of admission was more severe she has never had actual syncope with it. She had some diaphoresis just prior to the syncopal episode. She does not recall for short period time afterwards. When I saw her on the day of admission she definitely had a distinct dysarthria and the family concurred. The following day she was overall improved. Still had some abnormalities with her lab work so she was additionally stayed 1 extra day. Attempted MRI scan today but unable to will to do secondary to anxiety. EEG completed prior to discharge. We will follow-up on the EEG, arrange outpatient sedation MRI, continue aspirin today, stop estradiol, medications otherwise see list, will follow-up with me within the next week. Status at Discharge Functional status at discharge: independent ambulation Time Spent with Patient Time attestation: Total time spent providing and/or coordinating discharge services: Exam Constitutional Vital Signs - 24 hr 05/02/23 14:00 05/02/23 14:07 05/02/23 15:31 Temperature 98.2 F Pulse Rate 77 70 Respiratory Rate Blood Pressure [Right Arm] 125/80 H Pulse Oximetry 97 Oxygen Delivery Method Room Air Room Air Fraction of Inspired Oxygen 96 05/02/23 16:02 05/02/23 18:06 05/02/23 20:04 Temperature Pulse Rate 79 89 76 Respiratory Rate Blood Pressure [Right Arm] Pulse Oximetry Oxygen Delivery Method Fraction of Inspired Oxygen 05/02/23 20:24 05/02/23 21:48 05/02/23 22:00 Temperature 98.9 F Pulse Rate 82 70 Respiratory Rate 20 Blood Pressure [Right Arm] 122/80 H Pulse Oximetry 96 96 Oxygen Delivery Method Room Air Room Air Fraction of Inspired Oxygen 05/03/23 00:00 05/03/23 02:00 05/03/23 04:00 Temperature Pulse Rate 69 69 64 Respiratory Rate Blood Pressure [Right Arm] Pulse Oximetry Oxygen Delivery Method Fraction of Inspired Oxygen 05/03/23 04:34 05/03/23 05:14 05/03/23 06:01 Temperature 97.9 F Pulse Rate 88 73 Respiratory Rate 20 Blood Pressure [Right Arm] 143/81 H Pulse Oximetry 93 L 98 Oxygen Delivery Method Room Air Fraction of Inspired Oxygen 05/03/23 07:32 05/03/23 08:05 Temperature Pulse Rate 68 Respiratory Rate Blood Pressure [Right Arm] Pulse Oximetry 97 Oxygen Delivery Method Room Air Fraction of Inspired Oxygen DS: Data Data Completed and Pending Labs on day of discharge: Labs from last 24 hours 05/02/23 05/02/23 21:01 11:27 POC Glucose 107 H 145 H Discharge Plan Discharge Condition: Good Discharge Medications: New aspirin 325 mg Tablet 81 mg PO QD@0900 Qty: 30 0RF Continued progesterone 100 mg PO .QD gabapentin 600 mg tablet 600 mg PO BID ibuprofen 800 mg tablet 800 mg PO Q6H PRN (Reason: pain) metoprolol succinate 100 mg tablet extended release 24 hr 150 mg PO DAILY liothyronine 5 mcg tablet 10 mcg PO DAILY simvastatin 40 mg tablet 40 mg PO DAILY prazosin 5 mg capsule 5 mg PO DAILY pantoprazole 40 mg tablet,delayed release (DR/EC) 40 mg PO BID clobetasol 0.05 % solution 1 applic TOPICAL DAILY Rx Instructions: - then off on the s Slow Release Iron 143 mg (45 mg iron) tablet extended release 143 mg PO DAILY cholecalciferol (vitamin D3) 125 mcg (5,000 unit) capsule 125 mcg PO DAILY ezetimibe 10 mg tablet 10 mg PO DAILY lurasidone [Latuda] 20 mg tablet 20 mg PO DAILY budesonide-formoterol 160-4.5 mcg/actuation HFA aerosol inhaler 2 inh inhalation BID Spiriva Respimat 1.25 mcg/actuation mist 2 inh inhalation DAILY sucralfate 1 gram tablet 1 g PO Q6H ketoconazole 2 % shampoo 1 applic topical DAILY Rx Instructions: WASH SCALP DAILY THEN RINSE albuterol 90 mcg/actuation aerosol 90 mcg inhalation Q4H PRN (Reason: shortness of breath) Rx Instructions: 2 PUFFS inhaled; Discontinued estradiol [Estrace] 2 mg tablet 2 mg PO DAILY Activity Restrictions/Additional Instructions: report given to shahrzad haas. pt taken to [facility] per WC. pt and family updated Forms: Portal Instructions
[2023-05-03] MEDS: DIAZEPAM 5 MG/ML - 2 ML INJ SYRINGE IV (09:28)
--- NOTE | 2023-05-03 10:15 | CM.NOTE ---
Rounds made with Dr. Obrien. Potential plan for discharge today depending on Neurology Consult, MRI and EEG findings. Verbalizes understanding.
--- NOTE | 2023-05-03 10:31 | PC.NURSE ---
Pt was given valium for MRI pt got down to MRI and said she is not doing it they are going to have to knock her all the way out or she is not doing it. Updated Md at this time. No new orders
[2023-05-03 11:09] LABS: Glucometer 131 mg/dL (74-106)
[2023-05-03] MEDS: ASPIRIN 325 MG TABLET PO (12:21)
[2023-05-03] MEDS: ACETAMINOPHEN 325 MG TABLET 650 MG PO (12:21)
--- NOTE | 2023-05-03 15:28 | SWNOTE1 ---
SW spoke with pt in regards to HCPOA. Pt just wanted booklet to review and will talk to her family. SW went over booklet with pt and gave her SW card so she can set up time to complete.
--- NOTE | 2023-05-04 11:00 | CM.DCFOLLOWU ---
Person spoke with: patient How are you feeling? feeling ok, my speech is still a little weird. How is your pain? n/a Did you understand your discharge instructions? yes. Do you have any questions about your discharge instructions? no. Were you given any prescriptions at discharge? Yes Were you able to get your prescriptions filled? Yes Do you understand how to take your medications as ordered? Yes Do you have any questions about your follow up appointment and do you plan to keep your follow up appointment? I have a follow up appointment with Dr. Obrien 05/05 at 1:15 and I plan to keep the appointment. Is there anything else that you would like to discuss? No thank you. Questions/Comments/Concerns/Other: Encouraged patient if symptoms continue to worsen, she can come to the emergency room. Encouraged patient to keep follow up appointment with Dr. Obrien tomorrow, pt. voiced understanding. Pt. denies any other questions or needs at this time.
--- NOTE | 2023-05-12 09:46 | PCN_ITS ---
EEG Procedure Date:? 05/12/2023 This is a routine EEG performed on a 47-year-old female using standard 10/20 lead placement in the [employer] system.? All data was obtained digitally and is available for reformatting and remontaging.? There is a posterior dominant rhythm in the 9-10 Hz alpha range and 20-30 microvolt amplitude range recording in the occipital leads symmetrically during rest and wakefulness.? This rhythm attenuates with eye opening.? There is beta activity in the 15-20 Hz range and less than 20 microvolt amplitude range, recorded in the frontal sensory regions intermittently and symmetrically throughout the record.? There is no photic driving or abnormal wave forms recorded with photic stimulation performed at multiple frequencies.? There is no epileptiform activity recorded during the record.? There are no seizures recorded during the record.? There is infrequent generalized slowing in the delta range at 1-4 Hz and 20-40 microvolt amplitude range recorded at least twice during the record during wakefulness. IMPRESSION:? This is a mildly abnormal EEG due to intermittent slow generalized activity consistent with mild diffuse encephalopathy. MTDD
== END 2023-05-03 17:55 | disposition home or self-care (01) ==
LOC: ER 15:06 → MS 05-03 17:28
PROVIDERS: Admitting Provider Family Medicine; Emergency Provider Emergency Medicine; PCP Family Medicine; Visit Provider Family Medicine
DX: R47.01 Aphasia (principal); R41.82 Altered mental status, unspecified; M47.816 Spondylosis without myelopathy or radiculopathy, lumbar region; M20.012 Mallet finger of left finger(s); D50.9 Iron deficiency anemia, unspecified; E03.9 Hypothyroidism, unspecified; I10 Essential (primary) hypertension; R55 Syncope and collapse; R47.1 Dysarthria and anarthria; F41.9 Anxiety disorder, unspecified; M79.7 Fibromyalgia; Z79.899 Other long term (current) drug therapy
CPT/HCPCS: 36415; 70450; 70496; 70498; 70551; 71045; 80053; 80307; 81001; 81003; 82948; 83605; 83690; 84484; 84702; 84703; 85025; 85610; 85730; 93005; 93306; 94761; 95816; 96374; 96375; 99285; G0378; Q3014; Q9967

== ENCOUNTER 2023-05-07 13:58 | Outpatient (OUT) | payer OTHER, SELFPAY ==
--- NOTE | 2023-05-07 13:59 | CA_ITS ---
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
== END 2023-05-07 13:59 ==
LOC: CARD 13:58
PROVIDERS: PCP Family Medicine; Visit Provider Family Medicine
DX: R55 Syncope and collapse (principal)
CPT/HCPCS: 93246

== ENCOUNTER 2023-06-07 15:04 | Outpatient (OUT) | payer OTHER, SELFPAY ==
--- NOTE | 2023-06-07 15:09 | XR_ITS ---
[facility] [place] [id number] Patient Name: LARRY TAM MRN: [id number] date: 1975 Sex: F Assigned Patient Location: [facility] Current Patient Location: [facility] Accession/Order Number: [id number] Exam Date: 06/07/2023 15:30 Report Date: 06/07/2023 16:30 At the request of: SADAF JEREZ Procedure: XR lumbar spine min 4V EXAMINATION: XR lumbar spine min 4V HISTORY: Lumbar spondylosis ; chronic low back pain COMPARISON: No relevant comparison available. FINDINGS: BONES: No significant spondylosis, scoliosis, fracture, or visible bony lesion. DISC SPACES: No significant disc height narrowing, subluxation, or endplate abnormality. PARASPINOUS: Negative. No paraspinous abnormality is seen. OTHER: Negative. XR/XR lumbar spine min 4V IMPRESSION: 1. Minimal degenerative changes. No specific findings to account for patient's symptoms. Electronically authenticated by: MAX RAUSCH Date: 06/07/2023 16:30
== END 2023-06-07 15:05 | disposition home or self-care (01) ==
LOC: RAD 15:05
PROVIDERS: PCP Family Medicine; Visit Provider Anesthesiology
DX: M47.816 Spondylosis without myelopathy or radiculopathy, lumbar region (principal)
CPT/HCPCS: 72110

== ENCOUNTER 2023-07-12 14:50 | Outpatient (RCR) | payer OTHER, SELFPAY | END 2023-11-28 09:00 | disposition home or self-care (01) | LOC: PT 14:50 | PROVIDERS: PCP Family Medicine; Visit Provider Anesthesiology | DX: M47.817 Spondylosis without myelopathy or radiculopathy, lumbosacral region (principal) | CPT/HCPCS: 97010; 97012; 97014; 97110; 97112; 97140; 97162 ==

== ENCOUNTER 2023-08-26 14:59 | Outpatient (OUT) | payer OTHER, SELFPAY ==
--- NOTE | 2023-08-26 15:09 | PM.CN ---
Consult Note: HPI Data of Consult Requesting Physician: Bria Santamaria NP Primary Care Provider: Wan Obrien MD Consult Narrative Reason for consult: f/u Narrative: Zakiya Cuello a pleasant 47 year old female presents for evaluation of chronic low back pain without radiculopathy. Today rating pain 5/10. Patient completed 6 weeks of pt without benefit. Patient would like to discuss MBB procedures working towards a thermal RFA as previously discussed with Dr Rivas. cc:: CC: Bria Santamaria NP Review of Systems ROS Status of ROS 10 or more systems reviewed and unremarkable except as noted in history and below Musculoskeletal Reports: back pain PFSH PFSH Medical History Surgical History Social History Gender Identity: female Meds Home Medications and Allergies Home Medications Medication Instructions Recorded Confirmed Type clobetasol 0.05 % scalp solution 1 applic topical DAILY 04/30/23 05/01/23 History ferrous sulfate 143 mg (45 mg 143 mg PO DAILY 04/30/23 05/01/23 History iron) tablet,extended release (Slow Release Iron) gabapentin 600 mg tablet 600 mg PO BID 04/30/23 05/01/23 History ibuprofen 800 mg tablet 800 mg PO Q6H PRN pain 04/30/23 05/01/23 History liothyronine 5 mcg tablet 10 mcg PO DAILY 04/30/23 05/01/23 History metoprolol succinate 100 mg 150 mg PO DAILY 04/30/23 05/01/23 History tablet,extended release 24 hr pantoprazole 40 mg tablet,delayed 40 mg PO BID 04/30/23 05/01/23 History release prazosin 5 mg capsule 5 mg PO DAILY 04/30/23 05/01/23 History progesterone 100 mg PO .QD 04/30/23 05/01/23 History simvastatin 40 mg tablet 40 mg PO DAILY 04/30/23 05/01/23 History cholecalciferol (vitamin D3) 125 125 mcg PO DAILY 05/01/23 05/01/23 History mcg (5,000 unit) capsule ezetimibe 10 mg tablet 10 mg PO DAILY 05/01/23 05/01/23 History lurasidone 20 mg tablet (Latuda) 20 mg PO DAILY 05/01/23 05/01/23 History albuterol 90 mcg/actuation aerosol 90 mcg inhalation Q4H PRN 05/02/23 05/02/23 History inhaler shortness of breath budesonide-formoterol HFA 160 2 inh inhalation BID 05/02/23 05/02/23 History mcg-4.5 mcg/actuation aerosol inhaler ketoconazole 2 % shampoo 1 applic topical DAILY 05/02/23 05/02/23 History sucralfate 1 gram tablet 1 g PO Q6H 05/02/23 05/02/23 History tiotropium bromide 1.25 2 inh inhalation DAILY 05/02/23 05/02/23 History mcg/actuation mist for inhalation (Spiriva Respimat) aspirin 325 mg tablet 81 mg PO QD@0900 #30 tabs 05/03/23 Rx Allergies Allergy/AdvReac Type Severity Reaction Status Date / Time Sulfa (Sulfonamide Allergy Severe Anaphylaxis Verified 05/01/23 11:55 Antibiotics) clarithromycin [From Biaxin] AdvReac Severe Verified 05/01/23 11:43 lamotrigine [From Lamictal] AdvReac Severe Verified 05/01/23 11:43 Penicillins AdvReac Severe Verified 05/01/23 11:43 Exam Constitutional Documenting provider has reviewed patient's vital signs: yes Common normals: no apparent distress, oriented x3 and healthy appearing Respiratory Common normals: normal respiratory effort Effort & inspection: able to speak in complete sentences Back & Pelvis Lumbar spine/lower back: ROM limited, pain with ROM and straight leg raise negative bilaterally Other: tenderness to palpation throughout the lumbar spine. Pain is elicited with flexion, extension, and lateral rotation of the lumbar spine. Facet loading maneuvers are positive bilaterally. Coordination remains intact. Gait remains nonantalgic. Extremity Common normals: normal to inspection and full ROM Neuro Common normals: oriented x3, CN's II-XII intact bilaterally and no focal motor deficits Gait (neuro): normal gait Psych Common normals: mental status grossly normal and cooperative Assessment and Plan Assessment and Plan (1) Lumbar spondylosis: Assessment and Plan: The patient has had over 3 months of moderate to severe low back pain with functional impairment and inadequate response to conservative care including NSAIDS (unless there are contraindication such as concurrent blood thinners), multiple oral or topical pain medications, and home exercise program/physical therapy.? Patient has completed >6 weeks of guided home exercise program and/or formal physical therapy program without relief of their symptoms.? I have reviewed the imaging of the lumbar spine and no red flags were identified.? The imaging reveals radiographic findings consistent with lumbar spondylosis The Oswestry Disability Index was completed, and the patient scored a 28%.? The patient noted the following:?? moderate pain, can only lift very light weights, pain prevents her from sitting more than 30 minutes, pain interferes with social life and travel. The procedure will be completed with {aimagin} guidance.? Plan bilateral L3,4,5 MBB under fluoroscopy x 2 working towards thermal RFA continue HEP, patient completed 12 visits of PT without pain relief or functional improvement f/u after injection
== END 2023-08-26 15:00 | disposition home or self-care (01) ==
LOC: PM 14:59
PROVIDERS: PCP Family Medicine; Visit Provider Nurse Practitioner
DX: M47.816 Spondylosis without myelopathy or radiculopathy, lumbar region (principal)
CPT/HCPCS: G0463

== ENCOUNTER 2023-08-31 21:43 | Emergency (ER) | payer OTHER, SELFPAY ==
[2023-08-31 21:48] VITALS: BP 123/87; PULSE 88; RESP 16; TEMP 36.6; O2SAT 97; BMI 29.3
[2023-08-31] MEDS: PREDNISONE 20 MG TABLET 60 MG PO (23:03)
--- NOTE | 2023-08-31 23:04 | ED.GENADUL1 ---
HPI - General Adult General Chief complaint: Extremity Injury, Lower Stated complaint: Left side pain, Upper Extremity Pain Time Seen by Provider: 08/31/23 21:56 Source: patient Mode of arrival: walk-in History of Present Illness HPI narrative: 47-year-old female to the emergency Department chief complaint of leg pain that has been ongoing for several weeks. She reports is become worse with time. She has not seen her doctor for this. No specific therapies been attempted at home. There are no aggravating or alleviating factors. There is no injury. There is no numbness or weakness associated. It is a burning pain. There is no rash associated. Patient also complains of mallet finger which orthopedic hand surgery has opted to treat nonsurgically. Related Data Home Medications Medication Instructions Recorded Confirmed clobetasol 0.05 % scalp solution 1 applic topical DAILY 04/30/23 05/01/23 ferrous sulfate 143 mg (45 mg 143 mg PO DAILY 04/30/23 05/01/23 iron) tablet,extended release (Slow Release Iron) gabapentin 600 mg tablet 600 mg PO BID 04/30/23 05/01/23 ibuprofen 800 mg tablet 800 mg PO Q6H PRN pain 04/30/23 05/01/23 liothyronine 5 mcg tablet 10 mcg PO DAILY 04/30/23 05/01/23 metoprolol succinate 100 mg 150 mg PO DAILY 04/30/23 05/01/23 tablet,extended release 24 hr pantoprazole 40 mg tablet,delayed 40 mg PO BID 04/30/23 05/01/23 release prazosin 5 mg capsule 5 mg PO DAILY 04/30/23 05/01/23 progesterone 100 mg PO .QD 04/30/23 05/01/23 simvastatin 40 mg tablet 40 mg PO DAILY 04/30/23 05/01/23 cholecalciferol (vitamin D3) 125 125 mcg PO DAILY 05/01/23 05/01/23 mcg (5,000 unit) capsule ezetimibe 10 mg tablet 10 mg PO DAILY 05/01/23 05/01/23 lurasidone 20 mg tablet (Latuda) 20 mg PO DAILY 05/01/23 05/01/23 albuterol 90 mcg/actuation aerosol 90 mcg inhalation Q4H PRN 05/02/23 05/02/23 inhaler shortness of breath budesonide-formoterol HFA 160 2 inh inhalation BID 05/02/23 05/02/23 mcg-4.5 mcg/actuation aerosol inhaler ketoconazole 2 % shampoo 1 applic topical DAILY 05/02/23 05/02/23 sucralfate 1 gram tablet 1 g PO Q6H 05/02/23 05/02/23 tiotropium bromide 1.25 2 inh inhalation DAILY 05/02/23 05/02/23 mcg/actuation mist for inhalation (Spiriva Respimat) Previous Rx's Medication Instructions Recorded aspirin 325 mg tablet 81 mg PO QD@0900 #30 tabs 05/03/23 prednisone 20 mg tablet 60 mg PO DAILY 5 days #15 tabs 08/31/23 Allergies Allergy/AdvReac Type Severity Reaction Status Date / Time Sulfa (Sulfonamide Allergy Severe Anaphylaxis Verified 05/01/23 11:55 Antibiotics) clarithromycin [From Biaxin] AdvReac Severe Verified 05/01/23 11:43 lamotrigine [From Lamictal] AdvReac Severe Verified 05/01/23 11:43 Penicillins AdvReac Severe Verified 05/01/23 11:43 Review of Systems ROS Status of ROS 10 or more systems reviewed and unremarkable except as noted in history and below [facility] Medical History Surgical History Social History Gender Identity: female Exam Narrative Exam Narrative: VITALS: I have reviewed the triage vital signs. GENERAL: Well developed, well appearing adult in no acute distress. NEURO: Alert and oriented. Moves all extremities. Face is symmetric and expressive. Normal gait. Hip flexion extension, knee extension. Sensation is intact extremities. EYES: PERRL. No scleral icterus or conjunctival injection. No discharge. HENT: Normocephalic, atraumatic. Hearing is grossly intact. Nares grossly patent and without discharge. Mucous membranes moist. NECK: No JVD. Patient moves neck without restriction. EXTREMITIES: Symmetric muscle bulk. No joint swelling. No clubbing, cyanosis, or deformity. SKIN: Warm and dry. Normal turgor. No rash or lesions appreciated. PSYCH: Mood, affect, and interaction is appropriate to the setting. Constitutional Vital Signs, click to edit/add: Last Vital Signs Temp 97.9 F 08/31/23 21:48 Pulse 88 08/31/23 21:48 Resp 16 08/31/23 21:48 BP 123/87 08/31/23 21:48 Pulse Ox 97 08/31/23 21:48 O2 Del Method Room Air 08/31/23 21:48 Course Vital Signs Vital signs: Vital Signs Temperature 97.9 F 08/31/23 21:48 Pulse Rate 88 08/31/23 21:48 Respiratory Rate 16 08/31/23 21:48 Blood Pressure 123/87 08/31/23 21:48 Pulse Oximetry 97 08/31/23 21:48 Oxygen Delivery Method Room Air 08/31/23 21:48 Temperature 97.9 F 08/31/23 21:48 Pulse Rate 88 08/31/23 21:48 Respiratory Rate 16 08/31/23 21:48 Blood Pressure 123/87 08/31/23 21:48 Pulse Oximetry 97 08/31/23 21:48 Oxygen Delivery Method Room Air 08/31/23 21:48 Medical Decision Making MDM Narrative Medical decision making narrative: 47-year-old female with several weeks of left anterior lateral thigh pain. Distribution is in the expected course of more continuous nerve. I suspect this is neuralgia paresthetica. Patient is currently in physical therapy. Discussed that this is the ideal treatment and she should discuss further with them based on this diagnosis. We'll also try a short course of prednisone to reduce inflammation which I believe is the etiology of the problem. Already on Ibuprofen and Gabapentin from pain management and is under contract. I also gave her referral to a hand surgeon [place] so she may obtain a 2nd opinion on her mallet finger which is causing her difficulties at work and pain. Patient agrees to this plan. Precautions were discussed. All questions were answered. The patient was discharged home. Medical Records Medical records reviewed: Yes I reviewed the patient's medical records Discharge Plan Discharge Chief Complaint: Extremity Injury, Lower Clinical Impression: Meralgia paresthetica of left side, Mallet deformity of left index finger Patient Disposition: Home, Self-Care Time of Disposition Decision: 22:55 Condition: Good Prescriptions / Home Meds: New prednisone 20 mg tablet 60 mg PO DAILY 5 Days Qty: 15 0RF No Action progesterone 100 mg PO .QD gabapentin 600 mg tablet 600 mg PO BID ibuprofen 800 mg tablet 800 mg PO Q6H PRN (Reason: pain) metoprolol succinate 100 mg tablet extended release 24 hr 150 mg PO DAILY liothyronine 5 mcg tablet 10 mcg PO DAILY simvastatin 40 mg tablet 40 mg PO DAILY prazosin 5 mg capsule 5 mg PO DAILY pantoprazole 40 mg tablet,delayed release (DR/EC) 40 mg PO BID clobetasol 0.05 % solution 1 applic TOPICAL DAILY Rx Instructions: M-F then off on the weekends Slow Release Iron 143 mg (45 mg iron) tablet extended release 143 mg PO DAILY cholecalciferol (vitamin D3) 125 mcg (5,000 unit) capsule 125 mcg PO DAILY ezetimibe 10 mg tablet 10 mg PO DAILY lurasidone [Latuda] 20 mg tablet 20 mg PO DAILY budesonide-formoterol 160-4.5 mcg/actuation HFA aerosol inhaler 2 inh inhalation BID Spiriva Respimat 1.25 mcg/actuation mist 2 inh inhalation DAILY sucralfate 1 gram tablet 1 g PO Q6H ketoconazole 2 % shampoo 1 applic topical DAILY Rx Instructions: WASH SCALP DAILY THEN RINSE albuterol 90 mcg/actuation aerosol 90 mcg inhalation Q4H PRN (Reason: shortness of breath) Rx Instructions: 2 PUFFS inhaled; aspirin 325 mg Tablet 81 mg PO QD@0900 Qty: 30 0RF Print Language: Yoruba Instructions: Meralgia Paresthetica (ED) Additional Instructions: Call Dr. Price to discuss your finger. Discuss your leg pain with Dr. Obrien and your physical therapist. Stand Alone Forms: Portal Instructions Referrals: Wan Obrien MD [Primary Care Provider] - 1 week
== END 2023-08-31 23:09 | disposition home or self-care (01) ==
PROVIDERS: Emergency Provider Student in an Organized Health Care Education/Training Program; PCP Family Medicine
DX: M20.012 Mallet finger of left finger(s) (principal); G57.12 Meralgia paresthetica, left lower limb; Z79.899 Other long term (current) drug therapy; Z79.890 Hormone replacement therapy; Z79.82 Long term (current) use of aspirin
CPT/HCPCS: 99283

== ENCOUNTER 2023-10-04 07:46 | Day surgery (SDC) | payer OTHER, SELFPAY ==
[2023-10-04 07:58] VITALS: BP 132/96; PULSE 97; RESP 14; TEMP 36.7; O2SAT 98
--- NOTE | 2023-10-04 08:55 | P.ON_ITS ---
Date of procedure: 10/04/23 Pre-op diagnosis: Lumbar spondylosis Post-op diagnosis: same as pre-op Procedure: Procedure: Bilateral L3, 4, 5 (bilateral L4/5, L5/S1) medial branch block Medications: Bupivacaine 0.5% 4cc The patient was seen and examined in the preoperative holding area.? An informed consent was obtained and placed on the chart.? The patient was brought to the medical procedure unit and placed in the prone position.? A timeout was completed verifying correct patient, procedure site, positioning, plan, and special equipment.? Using aseptic technique, the needle was placed at left L4. Under direct fluoroscopic visualization a Quincke-tipped spinal needle was a dvanced to the junction of the superior articulating process with the transverse process at the designated medial branch segment.? Preceded by negative aspiration, the above-mentioned injectate was placed in 1 mL aliquots.? The procedure was repeated at left L5, S1.? The needle was removed and insertion site was covered. The same procedure, at the same levels, was completed on the right side. The patient was taken to the postprocedural recovery area and monitored for an appropriate length of time before found suitable for discharge in the company of a responsible adult. Anesthesia: Local Surgeon: Rmaon Rivas Pathology: none sent Condition: stable Disposition: no change
[2023-10-04] MEDS: LIDOCAINE HCL 2% PF 100 MG/5 ML VIAL 1 ML INJ (08:56)
[2023-10-04] MEDS: BUPIVACAINE HCL 0.5% PF 50 MG/10 ML VIAL INJ (08:56)
[2023-10-04 12:54] VITALS: BP 125/82; BP 135/77; PULSE 94; PULSE 98; RESP 18; O2SAT 98
== END 2023-10-04 09:00 | disposition home or self-care (01) ==
PROVIDERS: PCP Family Medicine; Visit Provider Anesthesiology
DX: M47.816 Spondylosis without myelopathy or radiculopathy, lumbar region (principal)
CPT/HCPCS: 64493; 64494

== ENCOUNTER 2023-10-13 14:11 | Outpatient (OUT) | payer OTHER, SELFPAY ==
--- NOTE | 2023-10-13 14:38 | P.CN_ITS ---
Consult Note: HPI Data of Consult Patient: known to practice within the last 3 years Requesting Physician: Bria Santamaria NP Primary Care Provider: Wan Obrien MD Consult Narrative Reason for consult: f/u Narrative: Zakiya Cuello a pleasant 47 year old female presents for evaluation of chronic low back pain without radiculopathy. Today rating pain 5/10. Patient completed 6 weeks of pt without benefit. Patient had 100% pain relief and functional improvement immediately following and 6 hours after MBB #1, would like to discuss the next step working towards thermal RFA. cc:: CC: Bria Santamaria NP Review of Systems ROS Status of ROS 10 or more systems reviewed and unremarkable except as noted in history and below Musculoskeletal Reports: back pain PFSH PFSH Medical History Acid reflux ?K21.9 - Gastro-esophageal reflux disease without esophagitis (ICD-10) Altered mental status ?R41.82 - Altered mental status, unspecified (ICD-10) Angina at rest ?I20.8 - Other forms of angina pectoris (ICD-10) Anxiety ?F41.9 - Anxiety disorder, unspecified (ICD-10) Aphasia ?R47.01 - Aphasia (ICD-10) Heartburn ?R12 - Heartburn (ICD-10) Hiatal hernia ?K44.9 - Diaphragmatic hernia without obstruction or gangrene (ICD-10) High cholesterol ?E78.00 - Pure hypercholesterolemia, unspecified (ICD-10) Loud snoring ?R06.83 - Snoring (ICD-10) Low back pain ?M54.50 - Low back pain, unspecified (ICD-10) Sinus tachycardia ?R00.0 - Tachycardia, unspecified (ICD-10) Sleep apnea ?G47.30 - Sleep apnea, unspecified (ICD-10) TMJ (temporomandibular joint syndrome) ?M26.609 - Unspecified temporomandibular joint disorder, unspecified side (ICD-10) Surgical History H/O eye surgery ?Z98.890 - Other specified postprocedural states (ICD-10) H/O tubal ligation ?Z98.51 - Tubal ligation status (ICD-10) H/O: hysterectomy ?Z90.710 - Acquired absence of both cervix and uterus (ICD-10) History of tonsillectomy and adenoidectomy ?Z90.89 - Acquired absence of other organs (ICD-10) S/P nasal surgery ?Z98.890 - Other specified postprocedural states (ICD-10) Social History Gender Identity: female Meds Home Medications and Allergies Home Medications Medication Instructions Recorded Confirmed Type clobetasol 0.05 % scalp solution 1 applic topical DAILY 04/30/23 10/04/23 History ferrous sulfate 143 mg (45 mg 143 mg PO DAILY 04/30/23 10/04/23 History iron) tablet,extended release (Slow Release Iron) gabapentin 600 mg tablet 600 mg PO BID 04/30/23 10/04/23 History ibuprofen 800 mg tablet 800 mg PO Q6H PRN pain 04/30/23 10/04/23 History liothyronine 5 mcg tablet 10 mcg PO DAILY 04/30/23 10/04/23 History metoprolol succinate 100 mg 150 mg PO DAILY 04/30/23 10/04/23 History tablet,extended release 24 hr pantoprazole 40 mg tablet,delayed 40 mg PO BID 04/30/23 10/04/23 History release prazosin 5 mg capsule 5 mg PO DAILY 04/30/23 10/04/23 History progesterone 100 mg PO .QD 04/30/23 10/04/23 History simvastatin 40 mg tablet 40 mg PO DAILY 04/30/23 10/04/23 History cholecalciferol (vitamin D3) 125 125 mcg PO DAILY 05/01/23 10/04/23 History mcg (5,000 unit) capsule ezetimibe 10 mg tablet 10 mg PO DAILY 05/01/23 10/04/23 History lurasidone 20 mg tablet (Latuda) 20 mg PO DAILY 05/01/23 10/04/23 History albuterol 90 mcg/actuation aerosol 90 mcg inhalation Q4H PRN 05/02/23 10/04/23 History inhaler shortness of breath budesonide-formoterol HFA 160 2 inh inhalation BID 05/02/23 10/04/23 History mcg-4.5 mcg/actuation aerosol inhaler ketoconazole 2 % shampoo 1 applic topical DAILY 05/02/23 10/04/23 History sucralfate 1 gram tablet 1 g PO Q6H 05/02/23 10/04/23 History tiotropium bromide 1.25 2 inh inhalation DAILY 05/02/23 10/04/23 History mcg/actuation mist for inhalation (Spiriva Respimat) aspirin 325 mg tablet 81 mg PO QD@0900 #30 tabs 05/03/23 10/04/23 Rx diazepam 10 mg tablet mg 10/04/23 History Allergies Allergy/AdvReac Type Severity Reaction Status Date / Time Sulfa (Sulfonamide Allergy Severe Anaphylaxis Verified 10/04/23 07:54 Antibiotics) clarithromycin [From Biaxin] AdvReac Severe Verified 10/04/23 07:54 lamotrigine [From Lamictal] AdvReac Severe Verified 10/04/23 07:54 Penicillins AdvReac Severe Verified 10/04/23 07:54 Exam Constitutional Documenting provider has reviewed patient's vital signs: yes Common normals: no apparent distress, oriented x3 and healthy appearing Respiratory Common normals: normal respiratory effort Effort & inspection: able to speak in complete sentences Back & Pelvis Lumbar spine/lower back: ROM limited, pain with ROM and straight leg raise negative bilaterally Other: tenderness to palpation throughout the lumbar spine. Pain is elicited with flexion, extension, and lateral rotation of the lumbar spine. Facet loading maneuvers are positive bilaterally. Coordination remains intact. Gait remains nonantalgic. Extremity Common normals: normal to inspection and full ROM Neuro Common normals: oriented x3, CN's II-XII intact bilaterally and no focal motor deficits Gait (neuro): normal gait Psych Common normals: mental status grossly normal and cooperative Assessment and Plan Assessment and Plan (1) Lumbar spondylosis: Assessment and Plan: The patient has had over 3 months of moderate to severe low back pain with functional impairment and inadequate response to conservative care including NSAIDS (unless there are contraindication such as concurrent blood thinners), multiple oral or topical pain medications, and home exercise program/physical therapy.? Patient has completed >6 weeks of guided home exercise program and/or formal physical therapy program without relief of their symptoms.? I have reviewed the imaging of the lumbar spine and no red flags were identi fied.? The imaging reveals radiographic findings consistent with lumbar spondylosis The Oswestry Disability Index was completed, and the patient scored a 26%.? The patient noted the following:?? moderate pain, can only lift very light weights, pain prevents her from sitting more than 30 minutes, pain interferes with social life and travel. We discussed the risks and benefits of the procedure with the patient The procedure will be completed with fluoroscopic guidance.? (2) Anxiety: Plan bilateral L3,4,5 MBB under fluoroscopy #2 with 10mg PO valium 30 mins prior to procedure working towards thermal RFA continue HEP, patient completed 12 visits of PT without pain relief or functional improvement f/u after injection
== END 2023-10-13 14:12 | disposition home or self-care (01) ==
LOC: PM 14:11
PROVIDERS: PCP Family Medicine; Visit Provider Nurse Practitioner
DX: M47.816 Spondylosis without myelopathy or radiculopathy, lumbar region (principal); F41.9 Anxiety disorder, unspecified
CPT/HCPCS: G0463

== ENCOUNTER 2023-11-01 08:36 | Day surgery (SDC) | payer OTHER, SELFPAY ==
[2023-11-01 09:28] VITALS: BP 123/89; PULSE 89; RESP 14; TEMP 36.6; O2SAT 96
[2023-11-01 10:13] VITALS: BP 113/78; PULSE 82; RESP 18; O2SAT 99
[2023-11-01] MEDS: BUPIVACAINE HCL 0.25% PF 25 MG/10 ML VIAL 8 ML INJ (10:13)
[2023-11-01] MEDS: LIDOCAINE HCL 2% PF 100 MG/5 ML VIAL 2 ML INJ (10:13)
[2023-11-01 10:14] VITALS: PULSE 84; RESP 18; O2SAT 97
[2023-11-01 10:16] VITALS: BP 137/81
--- NOTE | 2023-11-01 10:17 | W.PM.PROCNOT ---
Date of procedure: 11/01/23 Pre-op diagnosis: Lumbar spondylosis Post-op diagnosis: same as pre-op Procedure: Procedure: Bilateral L3, 4, 5 (L4-5, L5-S1) medial branch block Medications: Bupivacaine 0.25% 5cc The patient was seen and examined in the preoperative holding area.? An informed consent was obtained and placed on the chart.? The patient was brought to the medical procedure unit and placed in the prone position.? A timeout was completed verifying correct patient, procedure site, positioning, plan, and special equipment.? Using aseptic technique, the needle was placed at left L3. Under direct fluoroscopic visualization a Quincke-tipped spinal needle was advanced to the junction of the superior articulating process with the transverse process at the designated medial branch segment.? Preceded by negative aspiration, the above-mentioned injectate was placed in 1 mL aliquots.? The procedure was repeated at left L4, 5.? The needle was removed and insertion site was covered. The same procedure, at the same levels, was completed on the right side. The patient was taken to the postprocedural recovery area and monitored for an appropriate length of time before found suitable for discharge in the company of a responsible adult. Anesthesia: Local Surgeon: Ramon Rivas Pathology: none sent Condition: stable Disposition: no change
== END 2023-11-01 10:20 | disposition home or self-care (01) ==
PROVIDERS: PCP Family Medicine; Visit Provider Anesthesiology
DX: M47.816 Spondylosis without myelopathy or radiculopathy, lumbar region (principal)
CPT/HCPCS: 64493; 64494

== ENCOUNTER 2023-11-11 14:09 | Outpatient (OUT) | payer OTHER, SELFPAY ==
--- NOTE | 2023-11-11 14:27 | P.CN_ITS ---
Consult Note: HPI Data of Consult Patient: known to practice within the last 3 years Requesting Physician: Bria Santamaria NP Primary Care Provider: Wan Obrien MD Consult Narrative Reason for consult: f/u Narrative: Zakiya Cuello a pleasant 47 year old female presents for evaluation and management of chronic back pain. Recently underwent Bilateral L3, 4, 5 (L4-5, L5-S1) medial branch block #2 with 100% relief of pain immediately following and hours after, she noticed increase in functional ability as well. Today rating pain 6/10 in low back. cc:: CC: Bria Santamaria NP Review of Systems ROS Status of ROS 10 or more systems reviewed and unremark able except as noted in history and below Musculoskeletal Reports: back pain PFSH PFSH Medical History Acid reflux ?K21.9 - Gastro-esophageal reflux disease without esophagitis (ICD-10) Altered mental status ?R41.82 - Altered mental status, unspecified (ICD-10) Angina at rest ?I20.8 - Other forms of angina pectoris (ICD-10) Anxiety ?F41.9 - Anxiety disorder, unspecified (ICD-10) Aphasia ?R47.01 - Aphasia (ICD-10) Heartburn ?R12 - Heartburn (ICD-10) Hiatal hernia ?K44.9 - Diaphragmatic hernia without obstruction or gangrene (ICD-10) High cholesterol ?E78.00 - Pure hypercholesterolemia, unspecified (ICD-10) Loud snoring ?R06.83 - Snoring (ICD-10) Low back pain ?M54.50 - Low back pain, unspecified (ICD-10) Sinus tachycardia ?R00.0 - Tachycardia, unspecified (ICD-10) Sleep apnea ?G47.30 - Sleep apnea, unspecified (ICD-10) TMJ (temporomandibular joint syndrome) ?M26.609 - Unspecified temporomandibular joint disorder, unspecified side (ICD-10) Surgical History H/O: hysterectomy ?Z90.710 - Acquired absence of both cervix and uterus (ICD-10) S/P nasal surgery ?Z98.890 - Other specified postprocedural states (ICD-10) H/O tubal ligation ?Z98.51 - Tubal ligation status (ICD-10) H/O eye surgery ?Z98.890 - Other specified postprocedural states (ICD-10) History of tonsillectomy and adenoidectomy ?Z90.89 - Acquired absence of other organs (ICD-10) Social History Gender Identity: female Meds Home Medications and Allergies Home Medications Medication Instructions Recorded Confirmed Type clobetasol 0.05 % scalp solution 1 applic topical DAILY 04/30/23 11/01/23 History ferrous sulfate 143 mg (45 mg 143 mg PO DAILY 04/30/23 11/01/23 History iron) tablet,extended release (Slow Release Iron) gabapentin 600 mg tablet 600 mg PO BID 04/30/23 11/01/23 History ibuprofen 800 mg tablet 800 mg PO Q6H PRN pain 04/30/23 11/01/23 History liothyronine 5 mcg tablet 10 mcg PO DAILY 04/30/23 11/01/23 History metoprolol succinate 100 mg 150 mg PO DAILY 04/30/23 11/01/23 History tablet,extended release 24 hr pantoprazole 40 mg tablet,delayed 40 mg PO BID 04/30/23 11/01/23 History release prazosin 5 mg capsule 5 mg PO DAILY 04/30/23 11/01/23 History progesterone 100 mg PO .QD 04/30/23 11/01/23 History simvastatin 40 mg tablet 40 mg PO DAILY 04/30/23 11/01/23 History cholecalciferol (vitamin D3) 125 125 mcg PO DAILY 05/01/23 11/01/23 History mcg (5,000 unit) capsule ezetimibe 10 mg tablet 10 mg PO DAILY 05/01/23 11/01/23 History lurasidone 20 mg tablet (Latuda) 20 mg PO DAILY 05/01/23 11/01/23 History albuterol 90 mcg/actuation aerosol 90 mcg inhalation Q4H PRN 05/02/23 11/01/23 History inhaler shortness of breath budesonide-formoterol HFA 160 2 inh inhalation BID 05/02/23 11/01/23 History mcg-4.5 mcg/actuation aerosol inhaler ketoconazole 2 % shampoo 1 applic topical DAILY 05/02/23 10/04/23 History sucralfate 1 gram tablet 1 g PO Q6H 05/02/23 11/01/23 History tiotropium bromide 1.25 2 inh inhalation DAILY 05/02/23 11/01/23 History mcg/actuation mist for inhalation (Spiriva Respimat) aspirin 325 mg tablet 81 mg (0.2492 x 325 mg) PO QD@0900 05/03/23 11/01/23 Rx #30 tabs diazepam 10 mg tablet mg 10/04/23 History levothyroxine 50 mcg tablet mcg 11/01/23 History Allergies Allergy/AdvReac Type Severity Reaction Status Date / Time Sulfa (Sulfonamide Allergy Severe Anaphylaxis Verified 11/01/23 09:19 Antibiotics) clarithromycin [From Biaxin] AdvReac Severe Verified 11/01/23 09:19 lamotrigine [From Lamictal] AdvReac Severe Verified 11/01/23 09:19 Penicillins AdvReac Severe Verified 11/01/23 09:19 Exam Constitutional Documenting provider has reviewed patient's vital signs: yes Common normals: no apparent distress, oriented x3, healthy appearing, alert and well nourished General appearance: cooperative HENOR Common normals: normocephalic, hearing grossly normal bilaterally and moist oral mucous membranes Head and scalp: normocephalic Eye Common normals: PERRL Pupil: PERRL Neck & C-Spine Common normals: full ROM General: normal visual inspection Chest Common normals: inspection of chest normal Respiratory Common normals: normal respiratory effort, no retractions and no use of accessory muscles Effort & inspection: able to speak in complete sentences Back & Pelvis Lumbar spine/lower back: ROM limited, pain with ROM and straight leg raise negative bilaterally Other: tenderness to palpation throughout the lumbar spine. Pain is elicited with flexion, extension, and lateral rotation of the lumbar spine. Facet loading maneuvers are positive bilaterally. Coordination remains intact. Gait remains nonantalgic. Extremity Common normals: normal to inspection and full ROM Neuro Common normals: oriented x3, CN's II-XII intact bilaterally, moves all extremities, no focal motor deficits, no sensory deficits noted and deep tendon reflexes 2+ bilaterally Sensorium/orientation: alert Gait (neuro): normal gait Motor exam: strength 5/5 throughout and no movement abnormalities noted Psych Common normals: mental status grossly normal, thought process normal, cooperative, affect normal, speech normal and activity/motor behavior normal Speech: normal speech Thought process: normal thought process Results Additional Findings Additional findings: I have checked an [place] report on this patient today and there are no aberrancies noted in the prescribing history.?? A drug screen was completed and reviewed within the last year, and if there has not been a drug screen completed we ordered one today to monitor higher risk, state monitored pain medication use. As part of providing excellent, safe, comprehensive care, the following was completed at our patient's visit: 1. A medication reconciliation and review to ensure accurate knowledge of current/active medications, including asking our patients to inform us about any [id number] medications or herbal remedies/nutritional supplements/alternative remedies. 2. A review to specifically ensure our patients have had annual screening for: elevated body mass index (BMI), tobacco use, screening for depression, and screening for unhealthy alcohol use. When screening is concerning, patients are provided with education and the specific recommendation to discuss the concerning health issue and treatment options with their primary care provider. Assessment and Plan Assessment and Plan (1) Lumbar spondylosis: Assessment and Plan: The patient has had over 3 months of moderate to severe low back pain with functional impairment and inadequate response to conservative care including NSAIDS (unless there are contraindication such as concurrent blood thinners), multiple oral or topical pain medications, and home exercise program/physical therapy.? Patient has completed >6 weeks of guided home exercise program and/or formal physical therapy program without relief of their symptoms.? I have reviewed the imaging of the lumbar spine and no red flags were identified.? The imaging reveals radiographic findings consistent with lumbar spondylosis The Oswestry Disability Index was completed, and the patient scored a 26%.? The patient noted the following:?? moderate pain, can only lift very light weights, pain prevents her from sitting more than 30 minutes, pain interferes with social life and travel. We discussed the risks and benefits of the procedure with the patient The procedure will be completed with fluoroscopic guidance.? (2) Anxiety: Plan bilateral L4-5 L5-S1 thermal RFA with 10mg po valium prior to procedure, we did discuss IV sedation and the risks vs benefits due to her anxiety continue HEP, patient completed 12 visits of PT without pain relief or functional improvement f/u 1 month after thermal RFA
== END 2023-11-11 14:10 | disposition home or self-care (01) ==
LOC: PM 14:13
PROVIDERS: PCP Family Medicine; Visit Provider Nurse Practitioner
DX: M47.816 Spondylosis without myelopathy or radiculopathy, lumbar region (principal)
CPT/HCPCS: G0463

== ENCOUNTER 2023-11-26 14:22 | Outpatient (OUT) | payer OTHER, SELFPAY ==
--- OUTSIDE RECORDS SUMMARY | 2023-11-26 14:26 | XMS_ITS | CCD ---
Author Name Unknown Address [address] [place] [address] Organization [facility] Care Team Providers Care Facilities Specialist Name Role Phone MD Eugenio Obrien Primary Care Provider [phone] DO Brendan Mitchell Emergency Provider Eugenio Obrien MD Primary Care Provider [phone] MD Eugenio Obrien Primary Care Provider [phone] RAMAN Vázquez Emergency Provider SKY .MARYBEL Attending Unavailable SKY ., MARYBEL Admitting Unavailable MARYBEL MORALES Consulting Unavailable EDINSON ., DR BECKER Primary Care Unavailable MARIEL MITCHELL Consulting Unavailab ADEN Jaimes Consulting Unavailable GIEDRAITIS, ANDRIUS Admitting Unavailable GIEDRAITIS, ANDRIUS Attending Unavailable EDINSON ., DR BECKER Primary Care Unavailable HOY ., DR BECKER Consulting Unavailable HOY ., DR BECKER Attending Unavailable HOY ., DR BECKER Admitting Unavailable HOY ., DR BECKER Primary Care Unavailable HOY ., DR BECKER Attending Unavailable HOY ., DR BECKER Admitting Unavailable HOY ., DR BECKER Primary Care Unavailable HOY ., DR BECKER Attending Unavailable HOY ., DR BECKER Admitting Unavailable HOY ., DR BECKER Primary Care Unavailable HOY ., DR BECKER Primary Care Unavailable LACYY ., DR BECKER Attending Unavailable HOY ., DR BECKER Admitting Unavailable HOY ., DR BECKER Consulting Unavailable HOY ., DR BECKER Attending Unavailable HOY ., DR BECKER Admitting Unavailable HOY ., DR BECKER Primary Care Unavailable HOY ., DR BECKER Attending Unavailable HOY ., DR BECKER Primary Care Unavailable HOY ., DR BECKER Consulting Unavailable HOY ., DR BECKER Admitting Unavailable HOY ., DR BECKER Consulting Unavailable HOY ., DR BECKER Attending Unavailable HOY ., DR BECKER Admitting Unavailable HOY ., DR BECKER Primary Care Unavailable HOY ., DR BECKER Primary Care Unavailable KARASIJohn ., DR LUKE Attending Unavailabl e KARASIK ., DR LUKE Admitting Unavailabl e KARASIK ., DR LUKE Consulting Unavailabl e АЛЕКСАНДР GÓMEZ Attending Unavailable АЛЕКСАНДР GÓMEZ Admitting Unavailable EDINSON ., DR BECKER Primary Care Unavailable АЛЕКСАНДР GÓMEZ Consulting Unavailable SWETA GAMEZ Attending Unavailable MD Eugenio Obrien Primary Care Provider [phone] MD Shayy Lozada Attending Provider [phone] Eugenio Obrien Primary Care Unavailable Poli Vázquez Admitting Unavailable Poli Vázquez Attending Unavailable Eugenio Obrien Primary Care Unavailable Shayy Lozada Admitting Unavailable Shayy Lozada Attending Unavailable Eugenio Obrein Primary Care Unavailable [place] Admitting Unavailable [place] Attending Unavailable Eugenio Obrien M Primary Care Unavailable Brendan Mitchell Admitting Unavailable Brendan Mitchell Attending Unavailable Rob ACUNA, Andrius Carlin Attending Unavailable Rob ACUNA, Andrius Vzaki Attending Unavailable Rob ACUNA, Andrius Raegan Attending Unavailable Allergies Allergy Classification Reported Allergen(s) Allergy Type Date of Onset Reaction(s) Facility (7 sources) Clarithromycin; Translations: [CLARITHROMYCIN] Drug Allergy 4 [facility] (7 sources) lamoTRIgine; Translations: [LAMOTRIGINE] Drug Allergy 4 Rash [facility] (7 sources) Sulfonamides (Antibiotic); Translations: [SULFA (SULFONAMIDE ANTIBIOTICS)] Allergy to substance 4 [facility] (3 sources) Penicillins; Translations: [PENICILLINS] Propensity to adverse reactions to drug 4 Unknown [facility] (1 source) Clarithromycin Drug Allergy 3 [facility] (2 sources) diphenhydrAMINE Drug Allergy 5 [facility] (1 source) lamoTRIgine Drug Allergy 4 [facility] (2 sources) Penicillins Drug allergy (disorder) 3 [facility] (2 sources) Sulfonamides (Antibiotic) Drug allergy (disorder) 3 [facility] (1 source) Bee pollen; Translations: [BEE POLLEN] Propensity to adverse reactions to drug (disorder) 3 [facility] (1 source) diphenhydrAMINE; Translations: [DIPHENHYDRAMINE HCL] Drug Allergy 3 [facility] Medications Current Medications Medication Drug Class(es) Dates Sig (Normalized) Sig (Original) doxycycline hyclate 100 mg oral capsule (2 sources) Tetracycline-clas s Drug Start: 03-31-2023 take 100 mg by mouth twice daily Doxycycline Hyclate Active 100 MG PO Twice daily 20 March 31, 2023 12:00am estradiol 2 mg oral tablet (6 sources) Estrogen Start: 03-31-2023 Estradiol Active MG TABLET March 31, 2023 12:00am Start: 08-14-2021 estradiol (EST RACE) 0.01 % (0.1 mg/gram) vaginal cream Apply sparingly every other day to vaginal opening. 42.5 g 1 08/14/2021 Active Start: 05-02-2021 take 1 tablet by myles th once daily estradiol (ESTRACE) 2 mg tablet TAKE 1 TABLET BY MOUTH EVERY DAY 90 tablet 0 05/02/2021 Active Comment on above: TAKE 1 TABLET BY MYLES TH EVERY DAY Apply sparingly ever y other day to vaginal opening. fluconazole 150 mg oral tablet (2 sources) Azole Antifungal Start: 03-31-2023 Fluconazole (Diflucan) 150 mg tablet Active 150 MG PO Q3D March 31, 2023 12:00am mupirocin 0.02 mg/mg topical ointment (2 sources) RNA Synthetase Inhibitor Antibacterial Start: 03-31-2023 Mupirocin Active 1 APPLIC TOPICAL Twice daily 15 May 3rd, 2023 12:00am Completed/Discontinued Medications Medication Drug Class(es) Dates Sig (Normalized) Sig (Original) 60 actuat budesonide 0.16 mg/actuat / formoterol fumarate 0.0045 mg/actuat metered dose inhaler (2 sources) Corticosteroid, beta2-Adrenergic Agonist Start: 07-29-2021 take 2 puff(s) by mouth twice daily SYMBICORT 160-4.5 mcg/actuation inhaler INHALE 2 PUFFS BY MOUTH TWICE DAILY *RINSE AFTER USE* 0 07/29/2021 Active Comment on above: INHALE 2 PUFFS BY [facility] TWICE DAILY *RINSE AFTER USE* cloNIDine hydrochloride 0.1 mg oral tablet (2 sources) Central alpha-2 Adrenergic Agonist Start: 08-01-2021 take 1 tablet by mouth three times daily cloNIDine HCl (CATAPRES) 0.1 mg tablet Take 0.1 mg by mouth three times daily. 0 08/01/2021 Active Comment on above: Take 0.1 mg by mouth three times daily. cyclobenzaprine hydrochloride 10 mg oral tablet (3 sources) Muscle Relaxant Start: 11-24-2021 End: 09-05-2022 take 10 mg by mouth three times daily Cyclobenzaprine Discontinued 10 MG PO Three times daily November 24, 2021 1:00am September 05, 2022 5:04pm 24 hr ferrous sulfate 142 mg extended release oral tablet (2 sources) Start: 05-08-2021 Ferrous Sulfate (SLOW FE) 142 mg (45 mg iron) TbER Take one tablet daily 30 tablet 1 05/08/2021 Active Comment on above: Take one tablet john paul y gabapentin 100 mg oral capsule (2 sources) Anti-epileptic Agent Start: 08-05-2021 take 1 capsule by mouth three times daily gabapentin (NEURONTIN) 100 mg capsule Take 100 mg by mouth three times daily. 0 08/05/2021 Active Comment on above: Take 100 mg by mouth three times daily. ibuprofen 600 mg oral tablet (3 sources) Nonsteroidal Anti-inflammatory Drug Start: 11-24-2021 End: 09-05-2022 Ibuprofen Discontinued 600 MG PO Every 6 hours November 24, 2021 1:00am September 05, 2022 5:04pm do not exceed 4 doses in a 24 hour period lurasidone hydrochloride 40 mg oral tablet (2 sources) Atypical Antipsychotic Start: 07-17-2021 take 1 tablet by mouth once daily at mealtime LATUDA 40 mg tablet TAKE 1 TABLET BY MOUTH ONCE A DAY WITH FOOD (AT LEAST 350 CALORIES) 0 07/17/2021 Active Comment on above: TAKE 1 TABLET BY MYLES TH ONCE A DAY WITH FOOD (AT LEAST 350 CALORIES) lysine 500 mg oral tablet (2 sources) Start: 06-10-2015 take 1 tablet by mouth once daily Lysine 500 mg tab Indications: Genital herpes Take 1 tablet by mouth once daily. 90 tablet 4 06/10/2015 Active Comment on above: Take 1 tablet by myles th once daily. meclizine hydrochloride 25 mg oral tablet (3 sources) Antiemetic Start: 12-30-2021 End: 09-05-2022 Meclizine Discontinued 25 MG PO As Directed December 30, 2021 1:00am September 05, 2022 5:04pm 24 hr metoprolol succinate 25 mg extended release oral tablet (2 sources) beta-Adrenergic Hermes metoprolol succinate XL, long acting, (TOPROL XL) 25 mg 24 hr tablet Take 75 mg by mouth once daily. 0 Active Comment on above: Take 75 mg by mouth once daily. progesterone 100 mg oral capsule (2 sources) Progesterone Start: 08-10-2022 take 1 capsule by mouth once daily at mealtime progesterone micronized (PROMETRIUM) 100 mg capsule TAKE 1 CAPSULE BY MOUTH EVERY EVENING WITH FOOD. NEEDS FOOD FOR ABSORPTION 90 capsule 0 08/10/2022 Active Comment on above: TAKE 1 CAPSULE BY MO UTH EVERY EVENING WITH FOOD. NEEDS FOOD FOR ABSORPTION simvastatin 20 mg oral tablet (2 sources) HMG-CoA Reductase Inhibitor Start: 08-30-2020 take 1 tablet by mouth once daily at bedtime simvastatin (ZOCOR) 20 mg tablet Take 1 tablet by mouth daily at bedtime. GENERIC IS OK 90 tablet 0 08/30/2020 Active Comment on above: Take 1 tablet by myles th daily at bedtime. GENERIC IS OK valACYclovir 500 mg oral tablet (2 sources) Herpesvirus Nucleoside Analog DNA Polymerase Inhibitor, Herpes Simplex Virus Nucleoside Analog DNA Polymerase Inhibitor, Herpes Zoster Virus Nucleoside Analog DNA Polymerase Inhibitor Start: 06-10-2015 take 1 tablet by mouth once daily valACYclovir (VALTREX) 500 mg tablet Indications: Genital herpes Take 1 tablet by mouth once daily. 90 tablet 4 06/10/2015 Active Comment on above: Take 1 tablet by myles th once daily. Problems Active Problems Problem Classification Problem Date Documented Date Episodic/Chronic Complications of surgical procedures or medical care (6 sources) Prolapse of vaginal vault after hysterectomy; Translations: [Prolapse of vaginal vault after hysterectomy] Onset: 06-03-2015 06-03-2015 Chronic Disorders of lipid metabolism (2 sources) Hyperlipidemia; Translations: [Hyperlipidemia, unspecified] Onset: 09-29-2015 10-07-2015 Chronic Esophageal disorders (1 source) Gastro-esophageal reflux disease without esophagitis; Translations: [GERD WITHOUT ESOPHAGITIS] Onset: 03-29-2023 Chronic Essential hypertension (1 source) Essential (primary) hypertension; Translations: [ESSENTIAL PRIMARY HYPERTENSION] Onset: 03-29-2023 Chronic Genitourinary symptoms and ill-defined conditions (2 sources) Mixed urinary incontinence; Translations: [Mixed incontinence] Onset: 06-03-2015 06-03-2015 Chronic Genitourinary symptoms and ill-defined conditions (3 sources) Dysfunctional voiding of urine; Translations: [Other specified disorders of urinary system] Onset: 06-03-2015 06-03-2015 Episodic Menopausal disorders (2 sources) Postmenopausal state; Translations: [Hormone replacement therapy] 06-10-2015 Episodic Miscellaneous mental health disorders (2 sources) 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; 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] 06-10-2015 Chronic Mycoses (2 sources) Candidiasis of vagina; Translations: [Candidiasis of vagina] 03-31-2023 Episodic Nonmalignant breast conditions (2 sources) Fibrocystic changes of bilateral breasts; Translations: [Diffuse cystic mastopathy of right breast] Onset: 10-25-2015 10-25-2015 Chronic Nutritional deficiencies (1 source) Vitamin D deficiency, unspecified; Translations: [VITAMIN D DEFICIENCY UNSPECIFIED] Onset: 09-04-2022 Chronic Other acquired deformities (2 sources) Mallet finger of left finger(s); Translations: [Mallet finger of left finger(s)] Onset: 06-02-2023 Episodic Other aftercare (1 source) 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; Translations: [OTH [facility] CURRENT DRUG THERAPY] Onset: 03-29-2023 Episodic Other diseases of bladder and urethra (2 sources) Detrusor overactivity; Translations: [Overactive bladder] Onset: 06-03-2015 06-03-2015 Chronic Other injuries and conditions due to external causes (3 sources) Injury of head; Translations: [Unspecified injury of head, initial encounter] 11-24-2021 Episodic Other nutritional; endocrine; and metabolic disorders (2 sources) Insulin resistance; Translations: [Metabolic syndrome] Onset: 10-07-2015 10-07-2015 Chronic Other skin disorders (5 sources) Nonscarring hair loss, unspecified; Translations: [NONSCARRING HAIR LOSS UNSPECIFIED] Onset: 09-09-2022 Episodic Other upper respiratory disease (2 sources) Abscess of nasal cavity; Translations: [Abscess, furuncle and carbuncle of nose] 03-31-2023 Episodic Prolapse of female genital organs (2 sources) Lateral cystocele; Translations: [Cystocele, lateral] Onset: 06-03-2015 06-03-2015 Chronic Residual codes; unclassified (2 sources) Sleep apnea; Translations: [Sleep apnea, unspecified] Onset: 09-03-2014 09-03-2014 Chronic Residual codes; unclassified (4 sources) Obstructive sleep apnea (adult) (pediatric); Translations: [OBSTRUCTIVE SLEEP APNEA] Onset: 12-07-2022 Chronic Residual codes; unclassified (2 sources) Family history of diabetes mellitus; Translations: [Family history of diabetes mellitus] 06-10-2015 Episodic Residual codes; unclassified (1 source) Acquired absence of both cervix and uterus; Translations: [ACQUIRED ABSENCE BOTH CERVIX AND UTERUS] Onset: 03-29-2023 Episodic Spondylosis; intervertebral disc disorders; other back problems (4 sources) Dorsalgia, unspecified; Translations: [DORSALGIA UNSPECIFIED] Onset: 03-25-2023 Episodic Sprains and strains (4 sources) Strain of neck muscle; Translations: [Strain of muscle, fascia and tendon at neck level, initial encounter] Onset: 03-29-2023 11-24-2021 Episodic Superficial injury; contusion (3 sources) Contusion of hand; Translations: [Contusion of unspecified hand, initial encounter] 11-24-2021 Episodic Syncope (3 sources) Syncope; Translations: [Syncope and collapse] 12-30-2021 Episodic Unclassified (1 source) LOW BACK PAIN, UNSPECIFIED; Translations: [LOW BACK PAIN, UNSPECIFIED] Onset: 10-07-2022 Unclassified (3 sources) COUGH, UNSPECIFIED; Translations: [COUGH, UNSPECIFIED] Onset: 05-27-2022 Unclassified (1 source) Encounter for screening mammogram for malignant neoplasm of breast; Translations: [Encounter for screening mammogram for malignant neoplasm of breast] Onset: 11-06-2022 Viral infection (2 sources) Genital herpes simplex; Translations: [Herpesviral infection of urogenital system, unspecified] 06-10-2015 Chronic Viral infection (1 source) COVID-19; Translations: [COVID-19] Onset: 05-27-2022 Past or Other Problems Problem Classification Problem Date Documented Date Episodic/Chronic Abdominal pain (8 sources) Abdominal pain; Translations: [Unspecified abdominal pain] Onset: 09-02-2022 09-05-2022 Episodic Deficiency and other anemia (1 source) Anemia, unspecified; Translations: [ANEMIA UNSPECIFIED] Onset: 09-04-2022 Episodic Immunizations and screening for infectious disease (1 source) Encounter for screening for human papillomavirus (HPV); Translations: [ENC SCREENING HUMAN PAPILLOMAVIRUS] Onset: 07-08-2022 Episodic Malaise and fatigue (1 source) Other fatigue; Translations: [OTHER FATIGUE] Onset: 09-04-2022 Episodic Other lower respiratory disease (2 sources) Dyspnea; Translations: [Dyspnea, unspecified] Onset: 09-03-2014 09-03-2014 Episodic Other screening for suspected conditions (not mental disorders or infectious disease) (7 sources) Patient encounter status; Translations: [Encounter for screening mammogram for malignant neoplasm of breast] Onset: 10-07-2015 10-07-2015 Episodic Other skin disorders (2 sources) Loss of hair; Translations: [Nonscarring hair loss, unspecified] Onset: 05-14-2015 05-14-2015 Episodic Other skin disorders (2 sources) Hirsutism; Translations: [Hirsutism] Onset: 07-05-2020 07-05-2020 Episodic Other upper respiratory disease (1 source) Abscess, furuncle and carbuncle of nose; Translations: [Abscess, furuncle and carbuncle of nose] Onset: 03-31-2023 Episodic Poisoning by nonmedicinal substances (4 sources) Toxic effect of venom of bees, accidental (unintentional), initial encounter; Translations: [TOXIC EFF VENOM BEES ACC INIT ENC] Onset: 09-22-2022 Episodic Unclassified (1 source) COUGH, UNSPECIFIED; Translations: [COUGH, UNSPECIFIED] Onset: 05-25-2022 Results Test Name Value Interpretation Reference Range Facility ZAID Antinuclear Antibodieson 07-21-2023 Antinuclear Abs, IFA Positive Critically abnormal . [facility] Comment on above: Result Comment: Nega tive <1:80 Borderline 1:80 Positive >1:80 Performed By: #### L IPASE, CBC, CMP #### [facility] [address] Homogeneous Pattern 1:80 Normal . [facility] Comment on above: Result Comment: ICAP nomenclature: AC-1 Performed By: #### L IPASE, CBC, CMP #### [facility] [address] Note 1 Normal . [facility] Comment on above: Result Comment: For more information about Hep-2 cell patterns use ANApatterns.org, the official website for the International Consensus on Antinuclear Antibody (ZAID) Patterns (ICAP). A positive ZAID result may occur in healthy individuals (low titer) or be associated with a variety of diseases. See interpretation chart which is not all inclusive: Pattern Antigen Detected Suggested Disease Association Homogeneous DNA(ds,ss), SLE - High titers Nucleosomes, Histones Drug-induced SLE Speckled Sm, SECURITY PROJECT MANAGER, SCL-70, SLE,MCTD,PSS (diffuse form), SS-A/SS-B Sjogrens Nucleolar SCL-70, PM-1/SCL High titers Scleroderma, PM/DM Centromere Centromere PSS (limited form) w/Crest syndrome variable Nuclear Dot [id number] Primary Biliary Cirrhosis Nuclear GP210, Primary Biliary Cirrhosis Membrane joleen A,B,C Performed at: - [facility] [id number] Explosive Technician: Eric Vasquez PhD, Phone: [phone] PERFORMED BY: [place] [address] PATHOLOGIST TECHNOLOGIST DEVELOPMENT HELENA BEVERLY M.D. Performed By: #### L IPASE, CBC, CMP #### [address] Alanine aminotransferase [En zymatic activity/volume] in Serum or PlasmaOrdered By: Shayy Lozada on 07-21-2023 ALT [Catalytic activity/Vol] 23 U/L 7- [facility] Albumin [Mass/volume] in Ser um or Plasma by Bromocresol green (BCG) dye binding methoOrdered By: Shayy Lozada on 07-21-2023 Albumin BCG dye [Mass/Vol] 4.3 g/dL 3.5-5.7 [facility] Alkaline phosphatase [Enzyma tic activity/volume] in Serum or PlasmaOrdered By: Shayy Lozada on 07-21-2023 ALP [Catalytic activity/Vol] 57 U/L 34-104 [facility] Aspartate aminotransferase [ Enzymatic activity/volume] in Serum or PlasmaOrdered By: Shayy Lozada on 07-21-2023 AST [Catalytic activity/Vol] 17 U/L 13-39 [facility] Basophils Auto (Bld) [#/Vol] Ordered By: Shayy Lozada on 07-21-2023 Basophils (Bld) [#/Vol] 0.1 10*3/uL 0.0-0.2 [facility] Basophils/100 WBC Auto (Bld) Ordered By: Shayy Lozada on 07-21-2023 Basophils/100 WBC (Bld) 1.2 % . [facility] Bilirubin.total [Mass/volume ] in Serum or PlasmaOrdered By: Shayy Lozada on 07-21-2023 Bilirubin [Mass/Vol] 0.5 mg/dL 0.3-1.0 [facility] Calcium [Mass/volume] in Ser um or PlasmaOrdered By: Shayy Lozada on 07-21-2023 Calcium [Mass/Vol] 9.4 mg/dL 8.6-10.3 [facility] Carbon dioxide, total [Moles /volume] in Serum or PlasmaOrdered By: Shayy Lozada on 07-21-2023 CO2 [Moles/Vol] 29.8 mmol/L 21.0-31.0 [facility] Chloride [Moles/volume] in [place] or PlasmaOrdered By: Shayy Lozada on 07-21-2023 Chloride [Moles/Vol] 108 mmol/L 98-107 [facility] Complete Blood Count Auto Di ffon 07-21-2023 Basophils (Bld) [#/Vol] 0.1 10*3/uL Normal 0.0-0.2 [facility] Comment on above: Performed By: #### L IPASE, CBC, CMP #### [facility] [address] Basophils/100 WBC (Bld) 1.2 % Normal . [facility] Comment on above: Performed By: #### L IPASE, CBC, CMP #### [address] Eosinophils (Bld) [#/Vol] 0.0 10*3/uL Normal 0.0-0.45 [facility] Comment on above: Performed By: #### L IPASE, CBC, CMP #### [address] Eosinophils/100 WBC (Bld) 0.1 % Normal . [facility] Comment on above: Performed By: #### L IPASE, CBC, CMP #### [address] Erythrocyte distribution width (RBC) [Ratio] 13.2 % Normal 11.9-15.3 [facility] Comment on above: Performed By: #### L IPASE, CBC, CMP #### [address] Hematocrit (Bld) [Volume fraction] 36.6 % Normal 34.0-46.4 [facility] Comment on above: Performed By: #### L IPASE, CBC, CMP #### [address] Hemoglobin (Bld) [Mass/Vol] 12.5 g/dL Normal 11.8-15.4 [facility] Comment on above: Performed By: #### L IPASE, CBC, CMP #### [place] [address] [place] Lymphocytes (Bld) [#/Vol] 1.8 10*3/uL Normal 1.00-4.8 [facility] Comment on above: Performed By: #### L IPASE, CBC, CMP #### [address] [address] [place] Lymphocytes/100 WBC (Bld) 37.2 % Normal . [facility] Comment on above: Performed By: #### L IPASE, CBC, CMP #### [facility] [address] MCH (RBC) [Entitic mass] 29.7 pg Normal 24.7-34.3 [facility] Comment on above: Performed By: #### L IPASE, CBC, CMP #### [facility] [address] MCV (RBC) [Entitic vol] 86.7 fL Normal 80-100 [facility] Comment on above: Performed By: #### L IPASE, CBC, CMP #### [address] Mean Corpuscular HGB Conc 34.2 g/dL Normal 32.0-35.0 [facility] Comment on above: Performed By: #### L IPASE, CBC, CMP #### [address] Monocytes (Bld) [#/Vol] 0.4 10*3/uL Normal 0.0-0.8 [facility] Comment on above: Performed By: #### L IPASE, CBC, CMP #### [address] Monocytes/100 WBC (Bld) 8.9 % Normal . [facility] Comment on above: Performed By: #### L IPASE, CBC, CMP #### [place] [address] [place] Neutrophils (Bld) [#/Vol] 2.5 10*3/uL Normal 1.8-7.7 [facility] Comment on above: Performed By: #### L IPASE, CBC, CMP #### [address] Neutrophils/100 WBC (Bld) 52.6 % Normal . [facility] Comment on above: Performed By: #### L IPASE, CBC, CMP #### [address] NRBC% 0.0 /100{WBC} Normal 0-0.5 [facility] Comment on above: Performed By: #### L IPASE, CBC, CMP #### [address] Platelet mean volume (Bld) [Entitic vol] 7.5 fL Normal 6.3-10.7 [facility] Comment on above: Performed By: #### L IPASE, CBC, CMP #### [address] Platelets (Bld) [#/Vol] 259 10*3/uL Normal 150-450 [facility] Comment on above: Performed By: #### L IPASE, CBC, CMP #### [address] RBC (Bld) [#/Vol] 4.22 10*6/uL Normal 3.60-5.00 [facility] Comment on above: Performed By: #### L IPASE, CBC, CMP #### [address] WBC (Bld) [#/Vol] 4.8 10*3/uL Normal 3.8-11.6 [facility] Comment on above: Performed By: #### L IPASE, CBC, CMP #### [address] Comprehensive Metabolic Pane sonny 07-21-2023 Albumin [Mass/Vol] 4.3 g/dL Normal 3.5-5.7 [facility] Comment on above: Performed By: #### C MP, CBC, T4F, ESR, TSH3 #### [address] #### TESTF, DHEAS, ZAID #### [facility] , Albumin/Globulin [Mass ratio] 1.9 {ratio} Normal [facility] Comment on above: Performed By: #### C MP, CBC, T4F, ESR, TSH3 #### [address] #### TESTF, DHEAS, ZAID #### [facility] , ALP [Catalytic activity/Vol] 57 U/L Normal 34-104 [facility] Comment on above: Performed By: #### C MP, CBC, T4F, ESR, TSH3 #### [facility] [address] [place] [address] [place] #### TESTF, DHEAS, ZAID #### [facility] , ALT [Catalytic activity/Vol] 23 U/L Normal 7-52 [facility] Comment on above: Performed By: #### C MP, CBC, T4F, ESR, TSH3 #### [address] #### TESTF, DHEAS, ZAID #### [facility] , Anion gap [Moles/Vol] 9.6 mmol/L Normal 6.0-15.0 [facility] Comment on above: Performed By: #### C MP, CBC, T4F, ESR, TSH3 #### [facility] [address] [place] [address] #### TESTF, DHEAS, ZAID #### [facility] , AST [Catalytic activity/Vol] 17 U/L Normal 13-39 [facility] Comment on above: Performed By: #### C MP, CBC, T4F, ESR, TSH3 #### [place] [address] [place] #### TESTF, DHEAS, ZAID #### [facility] , Bilirubin [Mass/Vol] 0.5 mg/dL Normal 0.3-1.0 [facility] Comment on above: Performed By: #### C MP, CBC, T4F, ESR, TSH3 #### [place] [address] [place] #### TESTF, DHEAS, ZAID #### [facility] , Calcium [Mass/Vol] 9.4 mg/dL Normal 8.6-10.3 [facility] Comment on above: Performed By: #### C MP, CBC, T4F, ESR, TSH3 #### [facility] [address] [place] [address] #### TESTF, DHEAS, ZAID #### [facility] , Chloride [Moles/Vol] 108 mmol/L High 98-107 [facility] Comment on above: Performed By: #### C MP, CBC, T4F, ESR, TSH3 #### [place] [address] [place] #### TESTF, DHEAS, ZAID #### [facility] , CO2 [Moles/Vol] 29.8 mmol/L Normal 21.0-31.0 [facility] Comment on above: Performed By: #### C MP, CBC, T4F, ESR, TSH3 #### [place] [address] [place] #### TESTF, DHEAS, ZAID #### [facility] , Creatinine [Mass/Vol] 0.76 mg/dL Normal 0.60-1.20 [facility] Comment on above: Performed By: #### C MP, CBC, T4F, ESR, TSH3 #### [facility] [address] [place] [address] [place] #### TESTF, DHEAS, ZAID #### [facility] , GFR/1.73 sq M.predicted MDRD (S/P/Bld) [Vol rate/Area] mL/min/{1.73_m2} Normal [facility] Comment on above: Performed By: #### C MP, CBC, T4F, ESR, TSH3 #### [place] [address] [place] #### TESTF, DHEAS, ZAID #### [facility] , Globulin (S) [Mass/Vol] 2.3 g/dL Normal [facility] Comment on above: Performed By: #### C MP, CBC, T4F, ESR, TSH3 #### [place] [address] [place] #### TESTF, DHEAS, ZAID #### [facility] , Glucose [Mass/Vol] 101 mg/dL High 70-100 [facility] Comment on above: Result Comment: [facility] Glucose Reference Range is dependent on time and content of last meal. Glucose of more than 200 mg/dL in a nonstressed, ambulatory subject supports the diagnosis of Diabetes Mellitus. ADA recommended reference range Performed By: #### C MP, CBC, T4F, ESR, TSH3 #### [address] #### TESTF, DHEAS, ZAID #### [facility] , Potassium [Moles/Vol] 4.4 mmol/L Normal 3.5-5.1 [facility] Comment on above: Performed By: #### C MP, CBC, T4F, ESR, TSH3 #### [place] [address] [place] #### TESTF, DHEAS, ZAID #### [facility] , Protein [Mass/Vol] 6.6 g/dL Normal 6.4-8.9 [facility] Comment on above: Performed By: #### C MP, CBC, T4F, ESR, TSH3 #### [place] [address] [place] #### TESTF, DHEAS, ZAID #### [facility] , Sodium [Moles/Vol] 143 mmol/L Normal 136-145 [facility] Comment on above: Performed By: #### C MP, CBC, T4F, ESR, TSH3 #### [place] [address] [place] #### TESTF, DHEAS, ZAID #### [facility] , Urea nitrogen [Mass/Vol] 12 mg/dL Normal 7-25 [facility] Comment on above: Performed By: #### C MP, CBC, T4F, ESR, TSH3 #### [facility] [address] [place] [address] #### TESTF, DHEAS, ZAID #### [facility] , Creatinine [Mass/volume] in Serum or PlasmaOrdered By: Shayy Lozada on 07-21-2023 Creatinine [Mass/Vol] 0.76 mg/dL 0.60-1.20 [facility] Dehydroepiandrosterone Sulfa meeta 07-21-2023 Dehydroepiandrosterone Sulfate 135.0 ug/dL Normal 41.2-243.7 [facility] Comment on above: Result Comment: Perf ormed at: [facility] [address] [id number] Explosive Technician: Eric Vasquez PhD, Phone: [phone] Performed By: #### L IPASE, CBC, CMP #### [address] Eosinophils Auto (Bld) [#/Vo l]Ordered By: Shayy Lozada on 07-21-2023 Eosinophils (Bld) [#/Vol] 0.0 10*3/uL 0.0-0.45 [facility] Eosinophils/100 WBC Auto (Bl d)Ordered By: Shayy Lozada on 07-21-2023 Eosinophils/100 WBC (Bld) 0.1 % . [facility] Erythrocyte Sedimentation Ra meeta 07-21-2023 ESR (Bld) [Velocity] 13 mm/h Normal 0-19 [facility] Comment on above: Result Comment: PERF ORMED BY: [place] [address] PATHOLOGIST TECHNOLOGIST DEVELOPMENT HELENA BEVERLY M.D. Performed By: #### L IPASE, CBC, CMP #### [address] Erythrocyte distribution wid th Auto (RBC) [Ratio]Ordered By: Shayy Lozada on 07-21-2023 Erythrocyte distribution width (RBC) [Ratio] 13.2 % 11.9-15.3 [facility] Erythrocyte sedimentation ra te by Photometric methodOrdered By: Shayy Lozada on 07-21-2023 ESR Photometric method (Bld) [Velocity] 13 mm/hr 0-19 [facility] Free T4 (Free Thyroxine)on 0 07-21-2023 Free T4 [Mass/Vol] 0.81 ng/dL Normal 0.61-1.12 [facility] Comment on above: Performed By: #### C MP, CBC, T4F, ESR, TSH3 #### [facility] [address] #### TESTF, DHEAS, ZAID #### [facility] , Globulin Calc (S) [Mass/Vol] Ordered By: Shayy Lozada on 07-21-2023 Globulin (S) [Mass/Vol] 2.3 g/dL [facility] Glucose [Mass/volume] in Ser um or PlasmaOrdered By: Shayy Lozada on 07-21-2023 Glucose [Mass/Vol] 101 mg/dL 70-100 [facility] Comment on above: ADA recommended refe rence rangeRandom Glucose Reference Range is dependent on time and content of last meal. Glucose of more than 200 mg/dL in a nonstressed, ambulatory subject supports the diagnosis of Diabetes Mellitus. Hematocrit Auto (Bld) [Volum e fraction]Ordered By: Shayy Lozada on 07-21-2023 Hematocrit (Bld) [Volume fraction] 36.6 % 34.0-46.4 [facility] Hemoglobin [Mass/volume] in BloodOrdered By: Shayy Lozada on 07-21-2023 Hemoglobin (Bld) [Mass/Vol] 12.5 g/dL 11.8-15.4 [facility] Leukocytes [#/volume] correc ji for nucleated erythrocytes in Blood by Automated counOrdered By: Shayy Lozada on 07-21-2023 WBC corrected for nucl RBC Auto (Bld) [#/Vol] 4.8 10*3/uL 3.8-11.6 [facility] Lymphocytes Auto (Bld) [#/Vo l]Ordered By: Shayy Lozada on 07-21-2023 Lymphocytes (Bld) [#/Vol] 1.8 10*3/uL 1.00-4.8 [facility] Lymphocytes/100 WBC Auto (Bl d)Ordered By: Shayy Lozada on 07-21-2023 Lymphocytes/100 WBC (Bld) 37.2 % . [facility] MCH Auto (RBC) [Entitic mass ]Ordered By: Shayy Lozada on 07-21-2023 MCH (RBC) [Entitic mass] 29.7 pg 24.7-34.3 [facility] MCHC Auto (RBC) [Mass/Vol]Or dered By: Shayy Lozada on 07-21-2023 MCHC (RBC) [Mass/Vol] 34.2 g/dL 32.0-35.0 [facility] MCV Auto (RBC) [Entitic vol] Ordered By: Shayy Lozada on 07-21-2023 MCV (RBC) [Entitic vol] 86.7 fL 80-100 [facility] Monocytes Auto (Bld) [#/Vol] Ordered By: Shayy Lozada on 07-21-2023 Monocytes (Bld) [#/Vol] 0.4 10*3/uL 0.0-0.8 [facility] Monocytes/100 WBC Auto (Bld) Ordered By: Shayy Lozada on 07-21-2023 Monocytes/100 WBC (Bld) 8.9 % . [facility] Neutrophils Auto (Bld) [#/Vo l]Ordered By: Shayy Lozada on 07-21-2023 Neutrophils (Bld) [#/Vol] 2.5 10*3/uL 1.8-7.7 [facility] Neutrophils/100 WBC Auto (Bl d)Ordered By: Shayy Lozada on 07-21-2023 Neutrophils/100 WBC (Bld) 52.6 % . [facility] No Panel InformationOrdered By: Shayy Lozada on 07-21-2023 Estimated GFR (CKD-EPI) > 60.0 mL/Min [facility] Creatinine Clearance (Chem N/A [facility] Nucleated erythrocytes [Pres ence] in Blood by Automated countOrdered By: Shayy Lozada on 07-21-2023 Nucleated RBC Auto Ql (Bld) 0.0 /100{WBC} 0-0.5 [facility] Platelet mean volume Auto (B ld) [Entitic vol]Ordered By: Shayy Lozada on 07-21-2023 Platelet mean volume (Bld) [Entitic vol] 7.5 fL 6.3-10.7 [facility] Platelets Auto (Bld) [#/Vol] Ordered By: Shayy Lozada on 07-21-2023 Platelets (Bld) [#/Vol] 259 10*3/uL 150-450 [facility] Potassium [Moles/volume] in Serum or PlasmaOrdered By: Shayy Lozada on 07-21-2023 Potassium [Moles/Vol] 4.4 mmol/L 3.5-5.1 [facility] Protein [Mass/volume] in Ser um or PlasmaOrdered By: Shayy Lozada on 07-21-2023 Protein [Mass/Vol] 6.6 g/dL 6.4-8.9 [facility] RBC Auto (Bld) [#/Vol]Ordere d By: Shayy Lozada on 07-21-2023 RBC (Bld) [#/Vol] 4.22 10*6/uL 3.60-5.00 [facility] Serum or plasma albumin/glob ulin mass ratioOrdered By: Shayy Lozada on 07-21-2023 Albumin/Globulin [Mass ratio] 1.9 {ratio} [facility] Serum or plasma anion gap de terminationOrdered By: Shayy Lozada on 07-21-2023 Anion gap [Moles/Vol] 9.6 mmol/L 6.0-15.0 [facility] Sodium [Moles/volume] in Ser um or PlasmaOrdered By: Shayy Lozada on 07-21-2023 Sodium [Moles/Vol] 143 mmol/L 136-145 [facility] Testosterone,Freeon 07-21-20 Testosterone,Free 1.0 pg/mL Normal 0.0-4.2 [facility] Comment on above: Result Comment: Perf ormed at: [facility] - [facility] [address] [id number] Explosive Technician: Elizabeth Quezada MD, Phone: [phone] Performed By: #### L IPASE, CBC, CMP #### [facility] [address] [place] [address] Thyroid Stimulating Hormoneo n 07-21-2023 TSH Qn 0.39 m[IU]/L Low 0.45-5.33 [facility] Comment on above: Result Comment: PERF ORMED BY: [place] [address] PATHOLOGIST TECHNOLOGIST DEVELOPMENT HELENA BEVERLY M.D. Performed By: #### C MP, CBC, T4F, ESR, TSH3 #### [facility] [address] [place] [address] #### TESTF, DHEAS, ZAID #### [facility] , Thyrotropin [Units/volume] i n Serum or PlasmaOrdered By: Shayy Lozada on 07-21-2023 TSH Qn 0.39 m[IU]/L 0.45-5.33 [facility] Thyroxine (T4) free [Mass/vo lume] in Serum or PlasmaOrdered By: Shayy Lozada on 07-21-2023 Free T4 [Mass/Vol] 0.81 ng/dL 0.61-1.12 [facility] Urea nitrogen [Mass/volume] in Serum or PlasmaOrdered By: Shayy Lozada on 07-21-2023 Urea nitrogen [Mass/Vol] 12 mg/dL 06-22 [facility] WBC Auto (Bld) [#/Vol]Ordere d By: Shayy Lozada on 07-21-2023 WBC (Bld) [#/Vol] 4.8 10*3/uL 3.8-11.6 [facility] Office Visiton 06-02-2023 Follow-up visit [id number] Zakiya Cuello 1975 F Date Provider Department Center 06/02/2023 VICKY JIMÉNEZ ORTHO MPORTHO Family History Problem Relation Age of Onset Diabetes Mother Diabetes Father Family Status - Relation Status Age at Mother Alive Father Alive Level of Service:34929 IN OFFICE/OUTPATIENT NEW LOW MDM 30-44 MINUTES Reason for Visit and Comments: Pain [136] Normal [facility] Bilirubin Test strip Ql (U)O rdered By: Poli Vázquez on 03-31-2023 Bilirubin Ql (U) Negative Negative [facility] Color Auto (U)Ordered By: Frederick Vázquez on 03-31-2023 Color (U) Yellow Yellow [facility] Ketones Auto test strip (U) [Mass/Vol]Ordered By: Poli Vázquez on 03-31-2023 Ketones (U) [Mass/Vol] Negative Negative [facility] Nitrite Test strip Ql (U)Ord ered By: Poli Vázquez on 03-31-2023 Nitrite Ql (U) Negative Negative [facility] Protein Auto test strip (U) [Mass/Vol]Ordered By: Poli Vázquez on 03-31-2023 Protein (U) [Mass/Vol] Negative Negative [facility] Specific gravity Auto test s trip (U) [Rel density]Ordered By: Poli Vázquez on 03-31-2023 Specific gravity (U) [Rel density] 1.004 1.001-1.030 [facility] Urinalysison 03-31-2023 Appearance (U) Clear Normal Clear [facility] Comment on above: Order Comment: Name Collection Type:: Clean-Voided Midstream Performed By: #### L IPASE, CBC, CMP #### [facility] [address] [id number] [place] Bilirubin,Urine Negative Normal Negative [facility] Comment on above: Order Comment: Name Collection Type:: Clean-Voided Midstream Performed By: #### L IPASE, CBC, CMP #### [facility] [address] [id number] [place] Color (U) Yellow Normal [facility] Comment on above: Order Comment: Name Collection Type:: Clean-Voided Midstream Performed By: #### L IPASE, CBC, CMP #### [facility] [address] [id number] [place] Glucose Ql (U) Normal Normal Normal [facility] Comment on above: Order Comment: Name Collection Type:: Clean-Voided Midstream Performed By: #### L IPASE, CBC, CMP #### [address] Ketones Ql (U) Negative Normal Negative [facility] Comment on above: Order Comment: Name Collection Type:: Clean-Voided Midstream Performed By: #### L IPASE, CBC, CMP #### [address] Leukocyte esterase Test strip Ql (U) Negative Normal Negative [facility] Comment on above: Order Comment: Name Collection Type:: Clean-Voided Midstream Performed By: #### L IPASE, CBC, CMP #### [address] Nitrite,Urine Negative Normal Negative [facility] Comment on above: Order Comment: Name Collection Type:: Clean-Voided Midstream Performed By: #### L IPASE, CBC, CMP #### [address] Occult Blood,Urine Negative Normal Negative [facility] Comment on above: Order Comment: Name Collection Type:: Clean-Voided Midstream Result Comment: PERF ORMED BY: [place] [address] PATHOLOGIST TECHNOLOGIST DEVELOPMENT HELENA BEVERLY M.D. Performed By: #### L IPASE, CBC, CMP #### [address] pH (U) 6.5 [pH] Normal 5.0-9.0 [facility] Comment on above: Order Comment: Name Collection Type:: Clean-Voided Midstream Performed By: #### L IPASE, CBC, CMP #### [address] Protein,Urine Negative Normal Negative [facility] Comment on above: Order Comment: Name Collection Type:: Clean-Voided Midstream Performed By: #### L IPASE, CBC, CMP #### [address] Specificy [place],Urine 1.004 Normal 1.001-1.030 [facility] Comment on above: Order Comment: Name Collection Type:: Clean-Voided Midstream Performed By: #### L IPASE, CBC, CMP #### [facility] [address] Urobilinogen,Urine Normal Normal Normal [facility] Comment on above: Order Comment: Name Collection Type:: Clean-Voided Midstream Performed By: #### L IPASE, CBC, CMP #### [facility] [address] Urine clarity by refractomet ry automatedOrdered By: Poli Vázquez on 03-31-2023 Clarity Refractometry automated (U) Clear Clear [facility] Urine glucose measurement by automated test strip (mass/volume)Ordered By: Poli Vázquez on 03-31-2023 Glucose Auto test strip (U) [Mass/Vol] Normal mg/dL Normal [facility] Urine hemoglobin detection b y automated test stripOrdered By: Poli Vázquez on 03-31-2023 Hemoglobin Auto test strip Ql (U) Negative Negative [facility] Urine leukocyte esterase det ection by automated test stripOrdered By: Poli Vázquez on 03-31-2023 Leukocyte esterase Auto test strip Ql (U) Negative Negative [facility] Urobilinogen Auto test strip (U) [Mass/Vol]Ordered By: Poli Vázquez on 03-31-2023 Urobilinogen (U) [Mass/Vol] Normal mg/dL Normal [facility] pH Auto test strip (U)Ordere d By: Poli Vázquez on 03-31-2023 pH (U) 6.5 [pH] 5.0-9.[address] [facility] [address] ABD/PELVIS WO CONon 03-25 CT ABD/PELVIS WO CON EXAMINATION: CT ABD/PELVIS WO CON, 03/25/2023 1:55 PM EDT HISTORY: CALCULUS OF KIDNEY COMPARISON: None. TECHNIQUE: Axial CT imaging was performed through the chest, abdomen, and pelvis without intravenous contrast. Multiplanar reformats were performed. Dose reduction techniques were achieved by using automated exposure control and/or adjustment of mA and/or kV according to patient size and/or use of iterative reconstruction technique. CHEST FINDINGS: Lungs: No consolidation, mass, or effusion. Airways: Patent. Mediastinum: No adenopathy. Aorta: No aneurysm. Cardiac: Normal size. No pericardial effusion. Pulmonary vasculature: Normal morphology. Bones: No acute bony abnormality. Axilla: No adenopathy. Thyroid gland: No abnormality demonstrated on provided imaging. Soft tissues: Unremarkable. Additional findings: None. ABDOMEN AND PELVIS FINDINGS: GI upper: Unremarkable. Liver: Normal size and contour. Gallbladder: No significant abnormality. No cholelithiasis. Biliary system: No intra or extrahepatic biliary ductal dilatation. Spleen: Normal size. Pancreas: Unremarkable. Adrenal glands: Normal adrenal glands. Kidneys/ureters: Normal contours. No hydronephrosis. No nephrolithiasis or ureterolithiasis. Vessels: No aneurysm. Lymph Nodes: No lymphadenopathy. Small bowel: No wall thickening or dilatation. Colon: No wall thickening or dilatation. Appendix: No findings of appendicitis. Peritoneal cavity: No free fluid or pneumoperitoneum. Lower : The urinary bladder is unremarkable. The uterus is not visualized. Bones: No acute bony abnormality. Soft tissues: No acute finding. Additional findings: None. IMPRESSION: No acute abnormality. No renal stone or hydronephrosis. Electronically authenticated by: ADEN MASTERSON Date: 2023-03-25 14:39 Normal [facility] ER URINE PROFILEon 3 Bilirubin Ql (U) Negative Normal NEGATIVE [facility] Comment on above: Performed By: #### E BVPROF #### [facility] [address] [place] [address] Dr. Nahomi Arana Clarity (U) CLEAR Normal CLEAR [facility] Comment on above: Performed By: #### E BVPROF #### [facility] [address] [place] [address] Dr. Nahomi Arana Color (U) LT. YELLOW Normal YELLOW [facility] Comment on above: Performed By: #### E BVPROF #### [facility] [address] [place] [address] Dr. Nahomi Arana ERUAHD A micrscopic examination will be performed if indicated. Normal [facility] Comment on above: Performed By: #### E BVPROF #### [facility] [address] [place] [address] Dr. Nahomi Arana Glucose Ql (U) Negative Normal NEGATIVE [facility] Comment on above: Performed By: #### E BVPROF #### [facility] [address] [place] [address] Dr. Nahomi Arana Hemoglobin Ql (U) TRACE-INTACT Abnormal NEGATIVE [facility] Comment on above: Performed By: #### E BVPROF #### [facility] [address] [place] [address] Dr. Nahomi Arana Ketones Ql (U) Negative Normal NEGATIVE [facility] Comment on above: Performed By: #### E BVPROF #### [facility] [address] [place] [address] Dr. Nahomi Arana LEUKOCYTES Negative Normal NEGATIVE [facility] Comment on above: Performed By: #### E BVPROF #### [facility] [address] [place] [address] Dr. Nahomi Arana Nitrite Ql (U) Negative Normal NEGATIVE [facility] Comment on above: Performed By: #### E BVPROF #### [facility] [address] [place] [address] Dr. Nahomi Arana pH (U) 5.0 [pH] Normal 5-9 [facility] Comment on above: Performed By: #### E BVPROF #### [facility] [address] [place] [address] Dr. Nahomi Arana SPEC GRAVITY 1.030 Abnormal 1.005-<=1.02 5 [facility] Comment on above: Performed By: #### E BVPROF #### [facility] [address] [place] [address] Dr. Nahomi Arana UA PROTEIN Negative Normal NEGATIVE/ TRACE [facility] Comment on above: Performed By: #### E BVPROF #### [facility] [address] [place] [address] Dr. Nahomi Arana UR MICRO IND INDICATED Normal [facility] Comment on above: Performed By: #### E BVPROF #### [facility] [address] [place] [address] Dr. Nahomi Arana Urobilinogen Qn (U) 0.2 {Jesus'U}/dL Normal 0.2 - 1. 0 [facility] Comment on above: Performed By: #### E BVPROF #### [facility] [address] [place] [address] Dr. Nahomi Arana URINE MICROSCOPIC ONLYon BACTERIA NONE SEEN Normal NONE SEEN [facility] Comment on above: Performed By: #### E BVPROF #### [facility] [address] [place] [address] Dr. Nahomi Arana Bacteria identified Cx Nom (U) NOT INDICATED Normal [facility] Comment on above: Performed By: #### E BVPROF #### [facility] [address] [place] [address] Dr. Nahomi Arana CAST NONE SEEN Normal NONE SEEN [facility] Comment on above: Performed By: #### E BVPROF #### [facility] [address] [place] [address] Dr. Nahomi Arana Crystals LM Nom (Urine sed) NONE SEEN Normal NONE SEEN [facility] Comment on above: Performed By: #### E BVPROF #### [facility] [address] [place] [address] Dr. Nahomi Arana Epithelial cells LM Ql (Urine sed) FEW Abnormal NONE SEEN /RARE [facility] Comment on above: Performed By: #### E BVPROF #### [facility] [address] [place] [address] Dr. Nahomi Arana MUCOUS NONE SEEN Normal NONE SEEN [facility] Comment on above: Performed By: #### E BVPROF #### [facility] [address] [place] [address] Dr. Nahomi Arana RBC 0-2 Normal 0-2 [facility] Comment on above: Performed By: #### E BVPROF #### [facility] [address] [place] [address] Dr. Nahomi Arana WBC NONE SEEN Normal NONE SEEN [facility] Comment on above: Performed By: #### E BVPROF #### [facility] [address] [address] [address] Nahomi Arana MM screening mammo BI w/CADo n 11-13-2022 MM screening mammo BI w/CAD [facility] [place] [address] [place], [place] [id number] Mammography Report Signed Patient: Zakiya Cuello MR#: [id number] : 1975 Acct:[id number] Age/Sex: 46 / F ADM Date: 11/06/22 Loc: [place] Room: Type: [facility] Attending Dr: Lake Jensen MD Copies to: MD Lake Roland MD Ordering Provider: Lake Jensen MD Date of Service: 11/06/22 MM/MM screening mammo BI w/CAD: SCREENING CLINICAL DATA: Screening for malignancy. BILATERAL SCREENING MAMMOGRAMS - FULL FIELD DIGITAL WITH TOMOSYNTHESIS AND CAD Routine and tomosynthesis craniocaudal and mediolateral oblique views of both breasts were obtained using low-dose digital technique. Comparison is made to prior studies from October 25, 2015 and July 10, 2020. This examination was reviewed with the aid of CAD. The breast parenchyma is heterogeneously dense. There are benign calcifications and and nodularity including a left intramammary lymph node. There are no developing masses, typically malignant calcifications or architectural distortion. There has been no significant interval change. MM/MM screening mammo BI w/CAD IMPRESSION: NO MAMMOGRAPHIC EVIDENCE OF MALIGNANCY. ROUTINE FOLLOW-UP IS RECOMMENDED IN ONE YEAR. RESULT CODE: 2 Benign Findings(s) DENSITY CODE: 3 (approximately 51-75% glandular) FOLLOW UP: 1YR The false-negative rate of mammography is approximately 10-percent. Management of a palpable abnormality must be based on clinical grounds. Patient was entered into a reminder system with a target due date for the next mammogram. Impression dictated by: Licha Do M.D.11/13/2022 8:29 AM Dictation Location: [facility] Transcribed By: [facility] 11/13/22828 Dictated By: Licha Do MD 11/13/22825 Signed By: 11/13/22828 [facility] 09-11-2022 Cortisol 3.7 ug/dL Normal [facility] Comment on above: Result Comment: Sonido isol AM 6.2 - 19.4 Cortisol PM 2.3 - 11.9 Performed By: #### E BVPROF #### [facility] [address] [address] [address] Nahomi Arana BARRY-ZHANG VIRUS (EBV) AB PROFILEon 09-11-2022 EBV Ab VCA, IgG 129.0 U/mL Critically high 0.0-17.9 [facility] Comment on above: Result Comment: Nega tive <18.0 Equivocal 18.0 - 21.9 Positive >21.9 Performed By: #### E BVPROF #### [facility] [address] [place] [address] Dr. Nahomi Arana EBV Ab VCA, IgM <36.0 Normal 0.0-35.9 [facility] Comment on above: Result Comment: Nega tive <36.0 Equivocal 36.0 - 43.9 Positive >43.9 Performed By: #### E BVPROF #### [facility] [address] [address] [address] Nahomi Arana EBV Nuclear Antigen Ab, IgG 228.0 U/mL Critically high 0.0-17.9 [facility] Comment on above: Result Comment: Nega tive <18.0 Equivocal 18.0 - 21.9 Positive >21.9 Performed By: #### E BVPROF #### [facility] [address] [place] [address] Dr. Nahomi Arana Interpretation: Comment Normal [facility] Comment on above: Result Comment: EBV Interpretation Chart [place]: Antibody Present + Antibody Absent - Interpretation VCA-IgM VCA-IgG EBNA-IgG . No previous infection/ - - - Susceptible Primary infection (new + + - or recent) Past Infection +or- + + See comment below* + - - *Results indicate infection with EBV at some time however cannot predict the timing of the infection since antibodies to EBNA usually develop after primary infection or, alternatively, approximately 5-10% of patients with EBV never develop antibodies to EBNA. Performed By: #### E BVPROF #### [facility] [address] [address] [address] Nahomi Arana FERRITINon 09-09-2022 Ferritin [Mass/Vol] 79.0 ng/mL Normal 6.2-137.0 [facility] Comment on above: Performed By: #### E BVPROF #### [facility] [address] [address] [address] Nahomi Arana VITAMIN B12on 09-09-2022 Cobalamin (Vitamin B12) [Mass/Vol] 612.0 pg/mL Normal 193.0-986.0 [facility] Comment on above: Performed By: #### E BVPROF #### [facility] [address] [address] [address] Nahomi Arana Albumin [Mass/volume] in Ser um or PlasmaOrdered By: Brendan Mitchell on 09-05-2022 Albumin [Mass/Vol] 3.5 g/dL 3.2-5.5 [facility] Basophils Auto (Bld) [#/Vol] Ordered By: Brendan Mitchell on 09-05-2022 Basophils (Bld) [#/Vol] 0.1 10*3/uL 0.0-0.2 [facility] Basophils/100 WBC Auto (Bld) Ordered By: Brendan Mitchell on 09-05-2022 Basophils/100 WBC (Bld) 1.0 % . [facility] Bilirubin Test strip Ql (U)O rdered By: Brendan Mitchell on 09-05-2022 Bilirubin Ql (U) Negative Negative [facility] Blood hemoglobin measurement (mass/volume)Ordered By: Brendan Mitchell on 09-05-2022 Hemoglobin (Bld) [Mass/Vol] 12.2 g/dL 11.8-15.4 [facility] Blood leukocytes automated c ount (number/volume)Ordered By: Brendan Mitchell on 09-05-2022 WBC (Bld) [#/Vol] 8.1 10*3/uL 4.5-11.[address] [facility] [address] abdomen pelvis w conon CT abdomen pelvis w [address] [place] [address] CT Scan Report Signed Patient: Zakiya Cuello MR#: [id number] : 1975 Acct:[id number] Age/Sex: 46 / F ADM Date: 09/05/22 Loc: ER Room: Type: [facility] ER Attending Dr: Copies to: Brendan Mitchell DO Ordering Provider: Brendan Mitchell DO Date of Service: 09/05/22 CT/CT abdomen pelvis w con: abd pain CT abdomen and pelvis withcontrast TECHNIQUE: Axial imaging with 2-D reconstruction.90 cc of Isovue-300. The CT exam was performed using one or more the following dose reduction techniques: Automated exposure control, adjustment of the MA and/or Kv according to patient size, or use of the iterative reconstruction technique. COMPARISON:None History: Fatigue. Burning in stomach. Lung bases are unremarkable. No hepatic mass or intrahepatic biliary ductal dilatation identified. Normal density of the liver parenchyma identified. No gallbladder abnormality identified. No extrahepatic biliary ductal dilatation identified. There is no splenomegaly or splenic mass identified. No pancreatic mass or ductal dilatation identified. The adrenal glands are unremarkable. No nephrolithiasis or obstructive uropathy is identified. No abdominal aortic aneurysm identified. No significant retroperitoneal abnormalities identified. The small bowel loops are nondistended. The appendix is normal. There is no colonic wall thickening, distention or pericolonic inflammatory changes. Urinary bladder is unremarkable. Reproductive structures are unremarkable. No free intraperitoneal air or fluid is identified. The bony structures are unremarkable. No subcutaneous soft tissue abnormality identified. CT/CT abdomen pelvis w con IMPRESSION: No acute findings. Impression dictated by: Garrison Gill M.D.09/05/2022 7:03 PM Dictation Location: [place] [address] Transcribed By: [facility] 09/05/221902 Dictated By: Garrison Glil DO 09/05/221900 Signed By: 09/05/221902 Normal [facility] Color Auto (U)Ordered By: Fish Mitchell on 09-05-2022 Color (U) Dark yellow Yellow [facility] Complete Blood Count Auto Di ffon 09-05-2022 Basophils (Bld) [#/Vol] 0.1 10*3/uL Normal 0.0-0.2 [facility] Comment on above: Result Comment: PERF ORMED BY: [place] [address] PATHOLOGIST TECHNOLOGIST DEVELOPMENT HELENA BEVERLY M.D. Performed By: #### L IPASE, CBC, CMP #### [facility] [address] [place] [address] Basophils/100 WBC (Bld) 1.0 % Normal . [facility] Comment on above: Performed By: #### L IPASE, CBC, CMP #### [place] [address] [place] Eosinophils (Bld) [#/Vol] 0.2 10*3/uL Normal 0.0-0.45 [facility] Comment on above: Performed By: #### L IPASE, CBC, CMP #### [place] [address] [place] Eosinophils/100 WBC (Bld) 2.9 % Normal . [facility] Comment on above: Performed By: #### L IPASE, CBC, CMP #### [address] Erythrocyte distribution width (RBC) [Ratio] 13.7 % Normal 11.9-15.3 [facility] Comment on above: Performed By: #### L IPASE, CBC, CMP #### [address] Hematocrit (Bld) [Volume fraction] 36.0 % Normal 34.0-46.4 [facility] Comment on above: Performed By: #### L IPASE, CBC, CMP #### [facility] [address] [place] [address] [place] Hemoglobin (Bld) [Mass/Vol] 12.2 g/dL Normal 11.8-15.4 [facility] Comment on above: Performed By: #### L IPASE, CBC, CMP #### [facility] [address] [place] [address] [place] Lymphocytes (Bld) [#/Vol] 2.6 10*3/uL Normal 1.00-4.8 [facility] Comment on above: Performed By: #### L IPASE, CBC, CMP #### [address] Lymphocytes/100 WBC (Bld) 32.4 % Normal . [facility] Comment on above: Performed By: #### L IPASE, CBC, CMP #### [address] MCH (RBC) [Entitic mass] 29.9 pg Normal 24.7-34.3 [facility] Comment on above: Performed By: #### L IPASE, CBC, CMP #### [address] MCV (RBC) [Entitic vol] 88.6 fL Normal 80-100 [facility] Comment on above: Performed By: #### L IPASE, CBC, CMP #### [address] Mean Corpuscular HGB Conc 33.8 g/dL Normal 32.0-35.0 [facility] Comment on above: Performed By: #### L IPASE, CBC, CMP #### [place] [address] [place] Monocytes (Bld) [#/Vol] 0.6 10*3/uL Normal 0.0-0.8 [facility] Comment on above: Performed By: #### L IPASE, CBC, CMP #### [place] [address] [place] Monocytes/100 WBC (Bld) 7.6 % Normal . [facility] Comment on above: Performed By: #### L IPASE, CBC, CMP #### [place] [address] [place] Neutrophils (Bld) [#/Vol] 4.5 10*3/uL Normal 1.8-7.7 [facility] Comment on above: Performed By: #### L IPASE, CBC, CMP #### [place] [address] [place] Neutrophils/100 WBC (Bld) 56.1 % Normal . [facility] Comment on above: Performed By: #### L IPASE, CBC, CMP #### [address] Nucleated RBC/100 WBC (Bld) [Ratio] 0.0 % Normal 0-0.5 [facility] Comment on above: Performed By: #### L IPASE, CBC, CMP #### [address] Platelet mean volume (Bld) [Entitic vol] 7.4 fL Normal 6.3-10.7 [facility] Comment on above: Performed By: #### L IPASE, CBC, CMP #### [address] Platelets (Bld) [#/Vol] 319 10*3/uL Normal 150-450 [facility] Comment on above: Performed By: #### L IPASE, CBC, CMP #### [address] RBC (Bld) [#/Vol] 4.07 10*6/uL Normal 3.60-5.00 [facility] Comment on above: Performed By: #### L IPASE, CBC, CMP #### [address] WBC (Bld) [#/Vol] 8.1 10*3/uL Normal 4.5-11.0 [facility] Comment on above: Performed By: #### L IPASE, CBC, CMP #### [address] Comprehensive Metabolic Pane sonny 09-05-2022 Albumin [Mass/Vol] 3.5 g/dL Normal 3.2-5.5 [facility] Comment on above: Performed By: #### L IPASE, CBC, CMP #### [address] Albumin/Globulin [Mass ratio] 1.3 {ratio} Normal [facility] Comment on above: Performed By: #### L IPASE, CBC, CMP #### [facility] [address] [id number] [place] ALP [Catalytic activity/Vol] 46 U/L Normal 32-92 [facility] Comment on above: Performed By: #### L IPASE, CBC, CMP #### [facility] [address] [place] [address] [place] ALT [Catalytic activity/Vol] 22 U/L Normal 10-60 [facility] Comment on above: Performed By: #### L IPASE, CBC, CMP #### [facility] [address] [id number] [facility] Anion gap [Moles/Vol] 12.9 mmol/L Normal 6.0-15.0 [facility] Comment on above: Performed By: #### L IPASE, CBC, CMP #### [facility] [address] AST [Catalytic activity/Vol] 20 U/L Normal 10-42 [facility] Comment on above: Performed By: #### L IPASE, CBC, CMP #### [facility] [address] [place] [address] [place] Bilirubin [Mass/Vol] 0.3 mg/dL Normal 0.3-1.2 [facility] Comment on above: Performed By: #### L IPASE, CBC, CMP #### [facility] [address] [place] [address] [place] Calcium [Mass/Vol] 9.6 mg/dL Normal 8.2-10.2 [facility] Comment on above: Performed By: #### L IPASE, CBC, CMP #### [facility] [address] [id number] [place] Chloride [Moles/Vol] 102 mmol/L Normal 95-114 [facility] Comment on above: Performed By: #### L IPASE, CBC, CMP #### [facility] [address] [id number] [place] CO2 [Moles/Vol] 27.7 mmol/L Normal 22.0-30.0 [facility] Comment on above: Performed By: #### L IPASE, CBC, CMP #### [facility] [address] Creatinine [Mass/Vol] 0.73 mg/dL Normal 0.44-1.03 [facility] Comment on above: Performed By: #### L IPASE, CBC, CMP #### [facility] [address] Creatinine Clr Calc Pharmacy 96.11 [facility] [place] [facility] Comment on above: Performed By: #### L IPASE, CBC, CMP #### [facility] [address] Estimated GFR ( [place] > 60 [facility] [place] [facility] Comment on above: Result Comment: GFR estimated reference range: According to KDOQI guidelines, <60 ml/min/1.73m2 is sufficient to diagnose a patient with chronic kidney disease. Performed By: #### L IPASE, CBC, CMP #### [facility] [address] Estimated GFR (Non- Am > 60 [facility] [place] [facility] Comment on above: Performed By: #### L IPASE, CBC, CMP #### [address] Globulin (S) [Mass/Vol] 2.7 g/dL Normal [facility] Comment on above: Performed By: #### L IPASE, CBC, CMP #### [address] Glucose [Mass/Vol] 115 mg/dL High 70-100 [facility] Comment on above: Result Comment: [place] Glucose Reference Range is dependent on time and content of last meal. Glucose of more than 200 mg/dL in a nonstressed, ambulatory subject supports the diagnosis of Diabetes Mellitus. ADA recommended reference range Performed By: #### L IPASE, CBC, CMP #### [address] Potassium [Moles/Vol] 3.6 mmol/L Normal 3.5-5.1 [facility] Comment on above: Performed By: #### L IPASE, CBC, CMP #### [facility] [address] [id number] [place] Protein [Mass/Vol] 6.2 g/dL Normal 6.1-7.9 [facility] Comment on above: Performed By: #### L IPASE, CBC, CMP #### [facility] [address] [id number] [place] Sodium [Moles/Vol] 139 mmol/L Normal 136-146 [facility] Comment on above: Performed By: #### L IPASE, CBC, CMP #### [facility] [address] [place] [address] [place] Urea nitrogen [Mass/Vol] 12 mg/dL Normal 9-23 [facility] Comment on above: Performed By: #### L IPASE, CBC, CMP #### [facility] [address] [place] [address] [place] Creatinine and Glomerular fi ltration rate.predicted panel (S/P/Bld)Ordered By: Brendan Mitchell on 09-05-2022 Creatinine [Mass/Vol] 0.73 mg/dL 0.44-1.03 [facility] ECG 12 lead ECGon 09-05-2022 ECG 12 lead ECG [facility] [place] [address] [place] [address] Electrocardiograph Report Signed Patient: Zakiya Cuello MR#: [id number] : 1975 Acct:[id number] Age/Sex: 46 / F ADM Date: 09/05/22 Loc: ER Room: Type: [facility] ER Attending Dr: Ordering Provider: Brendan Mitchell DO Date of Service: 09/05/2207/20/1742 ECG/ECG 12 lead ECG: Abdominal Pain Copies to: Test Reason : Blood Pressure : / mmHG Vent. Rate : 088 BPM Atrial Rate : 088 BPM P-R Int : 154 ms QRS Dur : 078 ms QT Int : 370 ms P-R-T Axes : 055 054 042 degrees QTc Int : 447 ms Normal sinus rhythm Normal ECG When compared with ECG of 30-DEC-2021 15:15, No significant change was found Confirmed by Brendan Mitchell DO ([id number]) on 09/05/2022 8:06:15 PM Referred By: Electronically Signed By:Brendan Mitchell DO Transcribed By: MUS Signed By Brendan Mitchell DO 2 2005 Normal [facility] Eosinophils Auto (Bld) [#/Vo l]Ordered By: Brendan Mitchell on 09-05-2022 Eosinophils (Bld) [#/Vol] 0.2 10*3/uL 0.0-0.45 [facility] Eosinophils/100 WBC Auto (Bl d)Ordered By: Brendan Mitchell on 09-05-2022 Eosinophils/100 WBC (Bld) 2.9 % . [facility] Erythrocyte distribution wid th Auto (RBC) [Ratio]Ordered By: Brendan Mitchell on 09-05-2022 Erythrocyte distribution width (RBC) [Ratio] 13.7 % 11.9-15.3 [facility] Estimated glomerular filtrat ion rate (GFR) non- AmericanOrdered By: Brendan Mitchell on 09-05-2022 GFR/1.73 sq M.predicted among non-blacks MDRD (S/P/Bld) [Vol rate/Area] > 60 mL/Min [facility] Globulin Calc (S) [Mass/Vol] Ordered By: Brendan Mitchell on 09-05-2022 Globulin (S) [Mass/Vol] 2.7 g/dL [facility] Hematocrit Auto (Bld) [Volum e fraction]Ordered By: Brendan Mitchell on 09-05-2022 Hematocrit (Bld) [Volume fraction] 36.0 % 34.0-46.4 [facility] Ketones Auto test strip (U) [Mass/Vol]Ordered By: Brendan Mitchell on 09-05-2022 Ketones (U) [Mass/Vol] Negative Negative [facility] and C hemistry - challengeOrdered By: Brendan Mitchell on 09-05-2022 Lipase [Catalytic activity/Vol] 38.0 U/L 22-51 [facility] - Hematology and Cell countsOrdered By: Brendan Mitchell on 09-05-2022 Nucleated RBC/100 WBC (Bld) [Ratio] 0.0 % 0-0.5 [facility] Lipaseon 09-05-2022 Lipase [Catalytic activity/Vol] 38.0 U/L Normal 22-51 [facility] Comment on above: Result Comment: PERF ORMED BY: [place] [address] PATHOLOGIST TECHNOLOGIST DEVELOPMENT HELENA BEVERLY M.D. Performed By: #### L IPASE, CBC, CMP #### [facility] [address] Lymphocytes Auto (Bld) [#/Vo l]Ordered By: Brendan Mitchell on 09-05-2022 Lymphocytes (Bld) [#/Vol] 2.6 10*3/uL 1.00-4.8 [facility] Lymphocytes/100 WBC Auto (Bl d)Ordered By: Brendan Mitchell on 09-05-2022 Lymphocytes/100 WBC (Bld) 32.4 % . [facility] MCH Auto (RBC) [Entitic mass ]Ordered By: Brendan Mitchell on 09-05-2022 MCH (RBC) [Entitic mass] 29.9 pg 24.7-34.3 [facility] MCHC Auto (RBC) [Mass/Vol]Or dered By: Brendan Mitchell on 09-05-2022 MCHC (RBC) [Mass/Vol] 33.8 g/dL 32.0-35.0 [facility] MCV Auto (RBC) [Entitic vol] Ordered By: Brendan Mitchell on 09-05-2022 MCV (RBC) [Entitic vol] 88.6 fL 80-100 [facility] Monocytes Auto (Bld) [#/Vol] Ordered By: Brendan Mitchell on 09-05-2022 Monocytes (Bld) [#/Vol] 0.6 10*3/uL 0.0-0.8 [facility] Monocytes/100 WBC Auto (Bld) Ordered By: Brendan Mitchell on 09-05-2022 Monocytes/100 WBC (Bld) 7.6 % . [facility] Neutrophils Auto (Bld) [#/Vo l]Ordered By: Brendan Mitchell on 09-05-2022 Neutrophils (Bld) [#/Vol] 4.5 10*3/uL 1.8-7.7 [facility] Neutrophils/100 WBC Auto (Bl d)Ordered By: Brendan Mitchell on 09-05-2022 Neutrophils/100 WBC (Bld) 56.1 % . [facility] Nitrite Test strip Ql (U)Ord ered By: Brendan Mitchell on 09-05-2022 Nitrite Ql (U) Negative Negative [facility] No Panel InformationOrdered By: Brendan Mitchell on 09-05-2022 Estimated GFR () > 60 mL/Min [facility] Comment on above: GFR estimated refere nce range: According to KDOQI guidelines, <60 ml/min/1.73m2 is sufficient to diagnose a patient with chronic kidney disease. Pharmacy Creatinine Clearance (Chem 96.11 [facility] Platelet mean volume Auto (B ld) [Entitic vol]Ordered By: Brendan Mitchell on 09-05-2022 Platelet mean volume (Bld) [Entitic vol] 7.4 fL 6.3-10.7 [facility] Platelets Auto (Bld) [#/Vol] Ordered By: Brendan Mitchell on 09-05-2022 Platelets (Bld) [#/Vol] 319 10*3/uL 150-450 [facility] Protein Auto test strip (U) [Mass/Vol]Ordered By: Brendan Mitchell on 09-05-2022 Protein (U) [Mass/Vol] Negative Negative [facility] Protein [Mass/volume] in Ser um or PlasmaOrdered By: Brendan Mitchell on 09-05-2022 Protein [Mass/Vol] 6.2 g/dL 6.1-7.9 [facility] RBC Auto (Bld) [#/Vol]Ordere d By: Brendan Mitchell on 09-05-2022 RBC (Bld) [#/Vol] 4.07 10*6/uL 3.60-5.00 [facility] Serum or plasma alanine greene otransferase measurement without P-5'-P (enzymatic activiOrdered By: Brendan Mitchell on 09-05-2022 ALT No additional P-5'-P [Catalytic activity/Vol] 22 U/L 10-60 [facility] Serum or plasma albumin/glob ulin mass ratioOrdered By: Brendan Mitchell on 09-05-2022 Albumin/Globulin [Mass ratio] 1.3 {ratio} [facility] Serum or plasma alkaline rich sphatase measurement (enzymatic activity/volume)Ordered By: Brendan Mitchell on 09-05-2022 ALP [Catalytic activity/Vol] 46 U/L 32-92 [facility] Serum or plasma anion gap de terminationOrdered By: Brendan Mitchell on 09-05-2022 Anion gap [Moles/Vol] 12.9 mmol/L 6.0-15.0 [facility] Serum or plasma aspartate am inotransferase measurement (enzymatic activity/volume)Ordered By: Brendan Mitchell on 09-05-2022 AST [Catalytic activity/Vol] 20 U/L 10-42 [facility] Serum or plasma calcium michell urement (mass/volume)Ordered By: Brendan Mitchell on 09-05-2022 Calcium [Mass/Vol] 9.6 mg/dL 8.2-10.2 [facility] Serum or plasma chloride amber surement (moles/volume)Ordered By: Brendan Mitchell on 09-05-2022 Chloride [Moles/Vol] 102 mmol/L 95-114 [facility] Serum or plasma glucose michell urement (mass/volume)Ordered By: Brendan Mitchell on 09-05-2022 Glucose [Mass/Vol] 115 mg/dL 70-100 [facility] Comment on above: ADA recommended refe rence rangeRandom Glucose Reference Range is dependent on time and content of last meal. Glucose of more than 200 mg/dL in a nonstressed, ambulatory subject supports the diagnosis of Diabetes Mellitus. Serum or plasma potassium me asurement (moles/volume)Ordered By: Brendan Mitchell on 09-05-2022 Potassium [Moles/Vol] 3.6 mmol/L 3.5-5.1 [facility] Serum or plasma sodium measu rement (moles/volume)Ordered By: Brendan Mitchell on 09-05-2022 Sodium [Moles/Vol] 139 mmol/L 136-146 [facility] Serum or plasma total biliru bin measurement (mass/volume)Ordered By: Brendan Mitchell on 09-05-2022 Bilirubin [Mass/Vol] 0.3 mg/dL 0.3-1.2 [facility] Serum or plasma total carbon dioxide measurement (moles/volume)Ordered By: Brendan Mitchell on 09-05-2022 CO2 [Moles/Vol] 27.7 mmol/L 22.0-30.0 [facility] Serum or plasma urea nitroge n measurement (mass/volume)Ordered By: Brendan Mitchell on 09-05-2022 Urea nitrogen [Mass/Vol] 12 mg/dL 08-21 [facility] Specific gravity Auto test s trip (U) [Rel density]Ordered By: Brendan Mitchell on 09-05-2022 Specific gravity (U) [Rel density] 1.022 1.001-1.030 [facility] Urinalysison 09-05-2022 Appearance (U) Clear Normal Clear [facility] Comment on above: Order Comment: Name Collection Type:: Clean-Voided Midstream Performed By: #### U A #### [facility] [address] [place] [address] [place] Bilirubin,Urine Negative Normal Negative [facility] Comment on above: Order Comment: Name Collection Type:: Clean-Voided Midstream Performed By: #### U A #### [facility] [address] [place] [address] [place] Color (U) Dark Yellow Critically abnormal Yellow [facility] Comment on above: Order Comment: Name Collection Type:: Clean-Voided Midstream Performed By: #### U A #### [facility] [address] [id number] [place] Glucose Ql (U) Normal Normal Normal [facility] Comment on above: Order Comment: Name Collection Type:: Clean-Voided Midstream Performed By: #### U A #### [facility] [address] [id number] [place] Ketones Ql (U) Negative Normal Negative [facility] Comment on above: Order Comment: Name Collection Type:: Clean-Voided Midstream Performed By: #### U A #### [facility] [address] [place] [address] Leukocyte esterase Test strip Ql (U) Negative Normal Negative [facility] Comment on above: Order Comment: Name Collection Type:: Clean-Voided Midstream Performed By: #### U A #### [address] Nitrite,Urine Negative Normal Negative [facility] Comment on above: Order Comment: Name Collection Type:: Clean-Voided Midstream Performed By: #### U A #### [address] Occult Blood,Urine Negative Normal Negative [facility] Comment on above: Order Comment: Name Collection Type:: Clean-Voided Midstream Result Comment: PERF ORMED BY: [place] [address] PATHOLOGIST TECHNOLOGIST DEVELOPMENT HELENA BEVERLY M.D. Performed By: #### U A #### [address] pH (U) 6.5 [pH] Normal 5.0-9.0 [facility] Comment on above: Order Comment: Name Collection Type:: Clean-Voided Midstream Performed By: #### U A #### [address] Protein,Urine Negative Normal Negative [facility] Comment on above: Order Comment: Name Collection Type:: Clean-Voided Midstream Performed By: #### U A #### [address] Specificy [place],Urine 1.022 Normal 1.001-1.030 [facility] Comment on above: Order Comment: Name Collection Type:: Clean-Voided Midstream Performed By: #### U A #### [address] Urobilinogen,Urine Normal Normal Normal [facility] Comment on above: Order Comment: Name Collection Type:: Clean-Voided Midstream Performed By: #### U A #### [place] [id number] [place] Urine clarity by refractomet ry automatedOrdered By: Brendan Mitchell on 09-05-2022 Clarity Refractometry automated (U) Clear Clear [facility] Urine glucose measurement by automated test strip (mass/volume)Ordered By: Brendan Mitchell on 09-05-2022 Glucose Auto test strip (U) [Mass/Vol] Normal mg/dL Normal [facility] Urine hemoglobin detection b y automated test stripOrdered By: Brendan Mitchell on 09-05-2022 Hemoglobin Auto test strip Ql (U) Negative Negative [facility] Urine leukocyte esterase det ection by automated test stripOrdered By: Brendan Mitchell on 09-05-2022 Leukocyte esterase Auto test strip Ql (U) Negative Negative [facility] Urobilinogen Auto test strip (U) [Mass/Vol]Ordered By: Brendan Mitchell on 09-05-2022 Urobilinogen (U) [Mass/Vol] Normal mg/dL Normal [facility] pH Auto test strip (U)Ordere d By: Brendan Mitchell on 09-05-2022 pH (U) 6.5 [pH] 5.0-9.0 [facility] INSULINon 09-03-2022 Insulin 15.6 uIU/mL Normal 2.6-24.9 [facility] Comment on above: Performed By: #### I NSULIN #### [facility] [address] [place] [address] Dr. Nahomi Arana CBC AUTO DIFFon 09-02-2022 BASO # 0.0 103/ul Normal 0.0-0.1 [facility] Comment on above: Performed By: #### E BVPROF #### [facility] [address] [place] [address] Dr. Nahomi Arana Basophils/100 WBC (Bld) 0.5 % Normal 0.2-2.0 [facility] Comment on above: Performed By: #### E BVPROF #### [facility] [facility] [address] [place] [address] Dr. Nahomi Arana EO # 0.2 103/ul Normal 0.0-0.7 [facility] Comment on above: Performed By: #### E BVPROF #### [facility] [address] [place] [address] Dr. Nahomi Arana Eosinophils/100 WBC (Bld) 2.2 % Normal 0.9-7.0 [facility] Comment on above: Performed By: #### E BVPROF #### [facility] [address] [place] [address] Dr. Nahomi Arana Erythrocyte distribution width (RBC) [Ratio] 13.2 % Normal 11.0-15.0 [facility] Comment on above: Performed By: #### E BVPROF #### [facility] [address] [place] [address] Dr. Nahomi Arana Hematocrit (Bld) [Volume fraction] 39.3 % Normal 36.0-48.0 [facility] Comment on above: Performed By: #### E BVPROF #### [facility] [address] [place] [address] Dr. Nahomi Arana Hemoglobin (Bld) [Mass/Vol] 13.0 g/dL Normal 12.0-16.0 [facility] Comment on above: Performed By: #### E BVPROF #### [facility] [address] [place] [address] Dr. Nahomi Arana IG # 0.02 10e3/ul Normal 0.00-0.03 [facility] Comment on above: Performed By: #### E BVPROF #### [facility] [address] [place] [address] Dr. Nahomi Arana IG % 0.2 % Normal 0.0-0.5 [facility] Comment on above: Performed By: #### E BVPROF #### [facility] [address] [place] [address] Dr. Nahomi Arana LYMPH # 2.2 103/ul Normal 1.2-3.8 [facility] Comment on above: Performed By: #### E BVPROF #### [facility] [address] [place] [address] Dr. Nahomi Arana Lymphocytes/100 WBC (Bld) 25.7 % Normal 20.5-60.0 [facility] Comment on above: Performed By: #### E BVPROF #### [facility] [address] [place] [address] Dr. Nahomi Arana MANUAL DIFF REQ NO Normal [facility] Comment on above: Performed By: #### E BVPROF #### [facility] [address] [place] [address] Dr. Nahomi Arana MCH (RBC) [Entitic mass] 30.0 pg Normal 26.7-34.0 [facility] Comment on above: Performed By: #### E BVPROF #### [facility] [address] [place] [address] Dr. Nahomi Arana MCHC (RBC) [Mass/Vol] 33.1 g/dL Normal 29.9-35.2 [facility] Comment on above: Performed By: #### E BVPROF #### [facility] [address] [place] [address] Dr. Nahomi Arana MCV (RBC) [Entitic vol] 90.6 fL Normal 81.0-99.0 [facility] Comment on above: Performed By: #### E BVPROF #### [facility] [address] [place] [address] Dr. Nahomi Arana MONO # 0.5 103/ul Normal 0.3-0.8 [facility] Comment on above: Performed By: #### E BVPROF #### [facility] [address] [place] [address] Dr. Nahomi Arana Monocytes/100 WBC (Bld) 5.8 % Normal 1.7-12.0 [facility] Comment on above: Performed By: #### E BVPROF #### [facility] [address] [place] [address] Dr. Nahomi Arana NEUT # 5.6 103/ul Normal 1.4-6.5 [facility] Comment on above: Performed By: #### E BVPROF #### [facility] [address] [place] [address] Dr. Nahomi Arana Neutrophils/100 WBC (Bld) 65.6 % Normal 43.0-75.0 [facility] Comment on above: Performed By: #### E BVPROF #### [facility] [address] [place] [address] Dr. Nahomi Arana Platelet mean volume (Bld) [Entitic vol] 9.1 fL Critically low 9.5-13.5 [facility] Comment on above: Performed By: #### E BVPROF #### [facility] [address] [place] [address] Dr. Nahomi Arana PLT 340 103/ul Normal 150-450 [facility] Comment on above: Performed By: #### E BVPROF #### [facility] [address] [place] [address] Dr. Nahomi Arana RBC 4.34 106/ul Normal 4.20-5.40 [facility] Comment on above: Performed By: #### E BVPROF #### [facility] [address] [place] [address] Dr. Nahomi Arana WBC 8.5 103/ul Normal 4.0-11.0 [facility] Comment on above: Performed By: #### E BVPROF #### [facility] [address] [place] [address] Dr. Nahomi Arana CULTURE URINEon 09-02-2022 CULTURE URINE Culture Observations: LIGHT GROWTH OF MIXED GENITAL TOMMY. NO POTENTIAL PATHOGENS SEEN. Normal [facility] Comment on above: Performed By: #### E BVPROF #### [facility] [address] [place] [address] Dr. Nahomi Arana FREE THYROXINE INDEX T7on FTI 2.83 Normal 1.30-4.50 [facility] Comment on above: Performed By: #### C MP, LIPID, TSH, T7 #### [facility] [address] [place] [address] Dr. Nahomi Arana T3U 26.0 % Critically low 30.0-39.0 [facility] Comment on above: Performed By: #### C MP, LIPID, TSH, T7 #### [facility] [address] [place] [address] Dr. Nahomi Arana T4 [Mass/Vol] 10.90 ug/dL Normal 4.80-13.90 [facility] Comment on above: Performed By: #### C MP, LIPID, TSH, T7 #### [facility] [address] [place] [address] Dr. Nahomi Arana GLYCOHEMOGLOBIN A1Con 2021 ADA RECOMMENDATION SEE BELOW Normal [facility] Comment on above: Result Comment: ADA RECOMMENDED LIMIT 4.0 - 6.0 ADA THERAPEUTIC TARGET < 7.0 ACTION SUGGESTED > 7.0 Performed By: #### E BVPROF #### [facility] [address] [place] [address] Dr. Nahomi Arana Glucose [Mass/Vol] 108 mg/dL Normal [facility] Comment on above: Performed By: #### E BVPROF #### [facility] [address] [place] [address] Dr. Nahomi Arana HbA1c (Bld) [Mass fraction] 5.4 % Normal 4.5-6.2 [facility] Comment on above: Performed By: #### E BVPROF #### [facility] [address] [place] [address] Dr. Nahomi Arana IRONon 09-02-2022 Iron [Mass/Vol] 84.0 ug/dL Normal 50.0-170.0 [facility] Comment on above: Performed By: #### I ALISHA CHÁVEZ #### [facility] [address] [place] [address] Dr. Nahomi Arana LIPID PROFILEon 09-02-2022 CHOL-HDL RATIO NORM SEE BELOW Normal [facility] Comment on above: Result Comment: 3.3 - 4.4 LOW RISK 4.4 - 7.1 AVERAGE RISK 7.1 - 11.0 MODERATE RISK >11.0 HIGH RISK Performed By: #### C MP, LIPID, TSH, T7 #### [facility] [address] [place] [address] Dr. Nahomi Arana Cholesterol [Mass/Vol] 201 mg/dL Critically high <=200 [facility] Comment on above: Performed By: #### C MP, LIPID, TSH, T7 #### [facility] [address] [address] [address] Nahomi Arana Cholesterol in HDL [Mass/Vol] 57 mg/dL Normal 40-60 [facility] Comment on above: Performed By: #### C MP, LIPID, TSH, T7 #### [facility] [address] [address] [address] Nahomi Arana Cholesterol in LDL [Mass/Vol] 101.6 mg/dL Normal [facility] Comment on above: Performed By: #### C MP, LIPID, TSH, T7 #### [facility] [address] [address] [address] Nahomi Arana Cholesterol.total/Cholest damion in HDL [Mass ratio] 3.5 {ratio} Normal [facility] Comment on above: Performed By: #### C MP, LIPID, TSH, T7 #### [facility] [address] [address] [address] Nahomi Arana HDL NORMAL > or = 60 mg/dl - LOW CARDIOVASCULAR RISK <40 mg/dl - HIGH CARDIOVASCULAR RISK Normal [facility] Comment on above: Performed By: #### C MP, LIPID, TSH, T7 #### [facility] [address] [address] [address] Nahomi Arana LDL CALC NORMAL SEE BELOW Normal [facility] Comment on above: Result Comment: <100 mg/dl OPTIMAL 100 - 129 mg/dl NEAR OR ABOVE OPTIMAL 130 - 159 mg/dl BORDERLINE HIGH 160 - 189 mg/dl HIGH >190 mg/dl VERY HIGH Performed By: #### C MP, LIPID, TSH, T7 #### [facility] [address] [address] [address] Nahomi Arana Triglyceride [Mass/Vol] 212 mg/dL Critically high <=150 [facility] Comment on above: Performed By: #### C MP, LIPID, TSH, T7 #### [facility] [address] [address] [address] Nahomi Arana VLDL CALC 42.4 mg/dL Normal [facility] Comment on above: Performed By: #### C MP, LIPID, TSH, T7 #### [facility] [address] [address] [address] Nahomi Arana PROF 14(COMP METB)on 022 Albumin [Mass/Vol] 3.7 g/dL Normal 3.4-5.0 [facility] Comment on above: Performed By: #### C MP, LIPID, TSH, T7 #### [facility] [address] [address] [address] Nahomi Arana Albumin/Globulin [Mass ratio] 1.1 {ratio} Normal [facility] Comment on above: Performed By: #### C MP, LIPID, TSH, T7 #### [facility] [address] [address] [address] Nahomi Arana ALP [Catalytic activity/Vol] 59 U/L Normal 46-116 [facility] Comment on above: Performed By: #### C MP, LIPID, TSH, T7 #### [facility] [address] [place] [address] Dr. Nahomi Arana ALT [Catalytic activity/Vol] 26 U/L Normal 14-59 [facility] Comment on above: Performed By: #### C MP, LIPID, TSH, T7 #### [facility] [address] [address] [address] Nahomi Arana Anion gap [Moles/Vol] 8.6 mmol/L Normal [facility] Comment on above: Performed By: #### C MP, LIPID, TSH, T7 #### [facility] [address] [address] [address] Nahomi Arana AST [Catalytic activity/Vol] 13 U/L Critically low 15-37 [facility] Comment on above: Performed By: #### C MP, LIPID, TSH, T7 #### [facility] [address] [address] [address] Nahomi Arana Bilirubin [Mass/Vol] 0.4 mg/dL Normal 0.2-1.0 [facility] Comment on above: Performed By: #### C MP, LIPID, TSH, T7 #### [facility] [address] [address] [address] Nahomi Arana Calcium [Mass/Vol] 9.4 mg/dL Normal 8.5-10.1 [facility] Comment on above: Performed By: #### C MP, LIPID, TSH, T7 #### [facility] [address] [address] [address] Nahomi Arana Chloride [Moles/Vol] 104 mmol/L Normal 98-107 [facility] Comment on above: Performed By: #### C MP, LIPID, TSH, T7 #### [facility] [address] [address] [address] Nahomi Arana CO2 [Moles/Vol] 31.5 mmol/L Normal 21.0-32.0 [facility] Comment on above: Performed By: #### C MP, LIPID, TSH, T7 #### [facility] [address] [place] [address] Dr. Nahomi Arana Creatinine [Mass/Vol] 0.80 mg/dL Normal 0.55-1.02 [facility] Comment on above: Performed By: #### C MP, LIPID, TSH, T7 #### [facility] [address] [place] [address] Dr. Nahomi Arana EGFR-AF TRINIDADIAN >60 Normal >=60 [facility] Comment on above: Performed By: #### C MP, LIPID, TSH, T7 #### [facility] [address] [place] [address] Dr. Nahomi Arana EGFR-NON AF TRINIDADIAN >60 Normal >=60 [facility] Comment on above: Performed By: #### C MP, LIPID, TSH, T7 #### [facility] [address] [place] [address] Dr. Nahomi Arana Globulin (S) [Mass/Vol] 3.5 g/dL Normal T [facility] Comment on above: Performed By: #### C MP, LIPID, TSH, T7 #### [facility] [address] [place] [address] Dr. Nahomi Arana Glucose [Mass/Vol] 96 mg/dL Normal 74-106 [facility] Comment on above: Performed By: #### C MP, LIPID, TSH, T7 #### [facility] [address] [address] [address] Nahomi Arana Potassium [Moles/Vol] 4.1 mmol/L Normal 3.5-5.1 [facility] Comment on above: Performed By: #### C MP, LIPID, TSH, T7 #### [facility] [address] [place] [address] Dr. Nahomi Arana Protein [Mass/Vol] 7.2 g/dL Normal 6.4-8.2 [facility] Comment on above: Performed By: #### C MP, LIPID, TSH, T7 #### [facility] [address] [place] [address] Dr. Nahomi Arana Sodium [Moles/Vol] 140 mmol/L Normal 136-145 [facility] Comment on above: Performed By: #### C MP, LIPID, TSH, T7 #### [facility] [address] [place] [address] Dr. Nahomi Arana Urea nitrogen [Mass/Vol] 12.0 mg/dL Normal 7.0-18.0 [facility] Comment on above: Performed By: #### C MP, LIPID, TSH, T7 #### [facility] [address] [address] [address] Nahomi Arana Urea nitrogen/Creatinine [Mass ratio] 15.0 mg/mg Normal [facility] Comment on above: Performed By: #### C MP, LIPID, TSH, T7 #### [facility] [address] [place] [address] Dr. Nahomi Arana TSHon 09-02-2022 TSH 0.743 uIU/mL Normal 0.358-3.[address] [facility] Comment on above: Performed By: #### C MP, LIPID, TSH, T7 #### [facility] [address] [place] [address] Dr. Nahomi Arana UA RANDOM W/MICROSCOPICon BACTERIA TRACE Abnormal NONE SEEN [facility] Comment on above: Performed By: #### U AMIC #### [facility] [address] [place] [address] Dr. Nahomi Arana Bilirubin Ql (U) Negative Normal NEGATIVE [facility] Comment on above: Performed By: #### U AMIC #### [facility] [address] [address] [address] Nahomi Arana CAST NONE SEEN Normal NONE SEEN [facility] Comment on above: Performed By: #### U AMIC #### [facility] [address] [address] [address] Nahomi Arana Clarity (U) CLEAR Normal CLEAR [facility] Comment on above: Performed By: #### U AMIC #### [facility] [address] [address] [address] Nahomi Arana Color (U) YELLOW Normal YELLOW [facility] Comment on above: Performed By: #### U AMIC #### [facility] [address] [address] [address] Nahomi Arana Crystals LM Nom (Urine sed) NONE SEEN Normal NONE SEEN [facility] Comment on above: Performed By: #### U AMIC #### [facility] [address] [address] [address] Nahomi Arana Epithelial cells LM Ql (Urine sed) RARE Normal NONE SEEN /RARE [facility] Comment on above: Performed By: #### U AMIC #### [facility] [address] [address] [address] Nahomi Arana Glucose Ql (U) Negative Normal NEGATIVE [facility] Comment on above: Performed By: #### U AMIC #### [facility] [address] [address] [address] Nahomi Arana Hemoglobin Ql (U) Negative Normal NEGATIVE [facility] Comment on above: Performed By: #### U AMIC #### [facility] [address] [address] [address] Nahomi Arana Ketones Ql (U) Negative Normal NEGATIVE [facility] Comment on above: Performed By: #### U AMIC #### [facility] [address] [address] [address] Nahomi Arana LEUKOCYTES Negative Normal NEGATIVE [facility] Comment on above: Performed By: #### U AMIC #### [facility] [address] [address] [address] Nahomi Arana MUCOUS TRACE Abnormal NONE SEEN [facility] Comment on above: Performed By: #### U AMIC #### [facility] [address] [address] [address] Nahomi Arana Nitrite Ql (U) Negative Normal NEGATIVE [facility] Comment on above: Performed By: #### U AMIC #### [facility] [address] [address] [address] Nahomi Arana pH (U) 5.5 [pH] Normal 5-9 [facility] Comment on above: Performed By: #### U AMIC #### [facility] [address] [place] [address] Dr. Nahomi Arana RBC 0-2 Normal 0-2 [facility] Comment on above: Performed By: #### U AMIC #### [facility] [address] [place] [address] Dr. Nahomi Arana SPEC GRAVITY >=1.030 Abnormal 1.005-<=1.02 5 [facility] Comment on above: Performed By: #### U AMIC #### [facility] [address] [place] [address] Dr. Nahomi Arana UA PROTEIN Negative Normal NEGATIVE/ TRACE [facility] Comment on above: Performed By: #### U AMIC #### [facility] [address] [place] [address] Dr. Nahomi Arana Urobilinogen Qn (U) 0.2 {Jesus'U}/dL Normal 0.2 - 1. 0 [facility] Comment on above: Performed By: #### U AMIC #### [facility] [address] [place] [address] Dr. Nahomi Arana WBC 0-2 Abnormal NONE SEEN [facility] Comment on above: Performed By: #### U AMIC #### [facility] [address] [place] [address] Dr. Nahomi Arana VITAMIN D 25 OHon 09-02-2022 VIT D 25-OH 29.5 ng/mL Normal [facility] Comment on above: Performed By: #### I KYLER, VITAD #### [facility] [address] [place] [address] Dr. Nahomi Arana VIT D RANGES SEE BELOW Normal [facility] Comment on above: Result Comment: <20 ng/mL Vit D deficient 20 - <30 ng/mL Vit D insufficient 30 - 100 ng/mL Vit D sufficient >100 ng/mL Potential Toxicity Performed By: #### I KYLER VITAD #### [facility] [address] [place] [address] Dr. Nahomi Arana PAP ACOG PANEL 2: 30 to 65on 07-10-2022 . . Normal [facility] Comment on above: Result Comment: Perf ormed at: WB Performed By: #### E BVPROF #### [facility] [address] [place] [address] Dr. Nahomi Arana Age Gdln ACOG Testing 30-65 Normal [facility] Comment on above: Performed By: #### E BVPROF #### [facility] [address] [place] [address] Dr. Nahomi Arana DIAGNOSIS: Comment Normal [facility] Comment on above: Result Comment: NEGA TIVE FOR INTRAEPITHELIAL LESION OR MALIGNANCY. Performed at: WB Performed By: #### E BVPROF #### [facility] [address] [place] [address] Dr. Nahomi Araan HPV Aptima Negative Normal Negative [facility] Comment on above: Result Comment: This nucleic acid amplification test detects fourteen high-risk HPV types (16,18,31,33,35,39,45,51,52,56,58,59,66,68) without differentiation. Performed at: =G Performed By: #### E BVPROF #### [facility] [address] [place] [address] Dr. Nahomi Arana Methodology: Comment Normal [facility] Comment on above: Result Comment: This liquid based ThinPrep(R) pap test was screened with the use of an image guided system. Performed at: WB Performed By: #### E BVPROF #### [facility] [address] [place] [address] Dr. Nahomi Arana Note: Comment Normal [facility] Comment on above: Result Comment: The Pap smear is a screening test designed to aid in the detection of premalignant and malignant conditions of the uterine cervix. It is not a diagnostic procedure and should not be used as the sole means of detecting cervical cancer. Both false-positive and false-negative reports do occur. . Performed at: WB Performed By: #### E BVPROF #### [facility] [address] [place] [address] Dr. Nahomi Arana Performed by: Comment Normal [facility] Comment on above: Result Comment: Sabra Bryant, Production Assembly Operator (ASCP) Performed at: WB Performed By: #### E BVPROF #### [facility] [address] [place] [address] Dr. Nahomi Arana Specimen adequacy: Comment Normal [facility] Comment on above: Result Comment: Sati sfactory for evaluation. No endocervical component is identified. Performed at: WB Performed By: #### E BVPROF #### [facility] [address] [place] [address] Dr. Nahomi Arana Covid-19 PCR (CVDTB)on 04-30 SARS-CoV-2 (COVID-19) RNA ORTIZ+probe Ql (Unsp spec) Detected Critically abnormal NOT DETECTED [facility] Comment on above: Result Comment: This test is not yet approved or cleared by the [place] FDA. When there are no FDA-approved or cleared tests available, and other criteria are met, FDA can make tests available under an emergency access mechanism called an Emergency Use Authorization (EUA). The EUA for this test is supported by the Online Advertising Manager of Health and Human Service's declaration that circumstances exist to justify the emergency use of in vitro diagnostics for the detection and/or diagnosis of the virus that causes COVID-19. This EUA will remain in effect for the duration of the COVID-19 declaration justifying emergency of IVDs, unless it is terminated or revoked by the FDA (after which the test may no longer be used). Performed By: #### C VDTBH #### [facility] [address] [place] [address] Dr. Nahomi Arana ZAID by IFAon 12-09-2021 ZAID Pattern Negative Normal [facility] Comment on above: Performed By: #### W SR, VITD, C3COMP, C4COMP, CRP, ENAID, CCP, ANAIFS, RF, DNAAB, CK ####[address] [address] [place], [place] [phone] ZAID Titer Negative Normal Negative [facility] Comment on above: Result Comment: Norm al range : negative at <1:80 serum dilution. Performed By: #### W SR, VITD, C3COMP, C4COMP, CRP, ENAID, CCP, ANAIFS, RF, DNAAB, CK ####[address] [phone] Nuclear Ab IF (S) [Titer] Negative Normal Negative [facility] Comment on above: Result Comment: Norm al range : negative at <1:80 serum dilution. Approximately 6% of patients with connective tissue diseases with low positive EIA values are negative by IFA. Recommend follow-up with specific antinuclear antibodies if clinically indicated. Test performed using Indirect Fluorescence Immunoassay technology (IFA) using HEp-2 cells. Performed By: #### W SR, VITD, C3COMP, C4COMP, CRP, ENAID, CCP, ANAIFS, RF, DNAAB, CK ####[address] [phone] C-Reactive Proteinon 022 C-Reactive Protein 0.3 mg/dL Normal <0.9 [facility] Comment on above: Performed By: #### W SR, VITD, C3COMP, C4COMP, CRP, ENAID, CCP, ANAIFS, RF, DNAAB, CK ####[address] [address] [phone] C3 Complementon 12-09-2021 C3 Complement 167 mg/dL High 86-166 [facility] Comment on above: Performed By: #### W SR, VITD, C3COMP, C4COMP, CRP, ENAID, CCP, ANAIFS, RF, DNAAB, CK ####[facility] [place], [place] [phone] C4 Complementon 12-09-2021 C4 Complement 21 mg/dL Normal 13-46 [facility] Comment on above: Performed By: #### W SR, VITD, C3COMP, C4COMP, CRP, ENAID, CCP, ANAIFS, RF, DNAAB, CK ####[address] [phone] CCP Antibody, IgGon 12-09-19 22 CCP Antibody, IgG <15 Normal <20 [facility] Comment on above: Result Comment: < 20 units: Negative 20-39 units: Weak Positive 40-59 units: Moderate Positive > 60 units: Strong Positive The following results were obtained with the Radario QUANTA Lite CCP3 IgG ANGELICA. Anti-CCP values obtained with different manufacturers' assay methods may not be used interchangeably. The magnitude of the reported IgG levels cannot be correlated to an endpoint titer. Performed By: #### W SR, VITD, C3COMP, C4COMP, CRP, ENAID, CCP, ANAIFS, RF, DNAAB, CK ####[address] [phone] CKon 12-09-2021 CK [Catalytic activity/Vol] 117 U/L Normal 42-196 [facility] Comment on above: Performed By: #### W SR, VITD, C3COMP, C4COMP, CRP, ENAID, CCP, ANAIFS, RF, DNAAB, CK ####[place] [id number] [place], [place] [phone] CNOVon 12-09-2021 CNOV Office Visit (RHEUMN) ---- YONATANZAKIYA Walsh ([id number]) 1975 F Date Time Provider Department 12/09/21 1:00 PM NEETA AMADOR During your visit today, we recorded the following information about you: Temperature Pulse Blood pressure Weight 98.2 degrees 94/minute 117/79 75.7 kg Height 1.6 m Neeta Amador MD 12/09/2021 2:47 PM Signed RHEUMATOLOGY NEW PATIENT NOTE 46 year old female with PMH significant for genital herpes, depression who presents for an evaluation for borderline lupus test Positive ZAID Consult requested by: Zakiya Storey CNP HPI Patient states she had got blood work done as she was having redness in her hands and feet for about 6 months to 1 year She was having joint pain in her fingers-PIPs, palm area. Feels she has swelling in her hands-no erythema, warmth. Worse with activity Endorses having wrist pain, left>right Worse with activity Morning stiffness lasting for about 2 hours, moving around makes it better Ibuprofen 800 mg QID sometimes for pain Also taking gabapentin for neuropathic pain arm soreness with activity, Feels sore when she is physically doing things-more so right upper arm Also has same with both calves when she walks With rest she feels better Low back pain associated with herpes flares Midline, nonradiating, flares lasting 3-4 days once a month Chronic neuropathy-taking gabapentin Has been having nystagmus since and has been scheduled to see neurophthalmology She reports having changes in color in hands with cold. No ulcers at tip of fingers. Fatigue has been an ongoing issue. Has ALAN-has been recommended to start using CPAP Multiple stressors-kid with autism Not able to exercise Tearful Review of Systems for autoimmune rheumatic diseases (Lupus/MCTD/PSS) Rash: No Photosensitivity: No Raynaud's: No GERD: Yes Bowel:(diarrhea/con stipation) constipation Seizure: No Psychosis: No Organic Brain Syndrome: No Visual Disturbances: Worse since COVID Cranial Nerve disorder: No Lupus Headache: Yes CVA: No Vasculitis: No Sicca symptoms: dry mouth Arthritis: No Arthralgias Yes Myositis: No Myalgias No Urinary Casts: No Hematuria: No Proteinuria: No Pyuria: No Alopecia: No Mucosal Ulcers: Yes Pleurisy: No Pericarditis: No Fever: No Thrombocytopenia: No Leukopenia: No Thrombotic events No Miscarriages No Obstetrics history: No family history of Rheumatoid arthritis, systemic lupus erythematosus,scler oderma in her known family. 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 Due to DUB. no hx of endometriosis - PAST SURGICAL HISTORY OF 07/01/2015 Robotic-assisted laparoscopic uterosacral ligament suspension. 2. Lysis of adhesions.Monarc transobturator midurethral sling, ref [id number], lot [id number]. 4. Posterior repair. - REMOVAL ADENOIDS,PRIMARY,<1 2 Y/O Adenoidectomy - REMOVAL OF TONSILS,<12 Y/O Tonsillectomy FAMILY HISTORY Problem Relation Age of Onset - Diabetes Mother - Thyroid Mother - None Father - Thyroid Sister - None Brother - other (healthy [Other]) Son - other (healthy [Other]) Son - other (healthy [Other]) Son Social History Tobacco Use - Smoking status: Never Smoker - Smokeless tobacco: Never Used Substance Use Topics - Alcohol use: Yes Comment: social - Drug use: No Current Outpatient Medications Medication Sig - SYMBICORT 160-4.5 mcg/actuation inhaler INHALE 2 PUFFS BY MOUTH TWICE DAILY *RINSE AFTER USE* - estradiol (ESTRACE) 0.01 % (0.1 mg/gram) vaginal cream Apply sparingly every other day to vaginal opening. - progesterone micronized (PROMETRIUM) 100 mg capsule Take 1 pill every evening with dinner. Needs food for absorption. Can't be used with peanut allergy. - gabapentin (NEURONTIN) 100 mg capsule Take 100 mg by mouth three times daily. - doxepin capsule 50 mg TAKE 1 CAPSULE BY MOUTH EVERYDAY AT BEDTIME - cloNIDine HCl (CATAPRES) 0.1 mg tablet Take 0.1 mg by mouth three times daily. - REXULTI 1 mg tablet Take 1 mg by mouth once daily. - LATUDA 40 mg tablet TAKE 1 TABLET BY MOUTH ONCE A DAY WITH FOOD (AT LEAST 35 (more content not included)... Normal [facility] DNA Antibodyon 12-09-2021 DNA Antibody 16 IU/mL Normal <30 [facility] Comment on above: Result Comment: Nega tive for ds DNA Antibodies Negative: <30 IU/mL Equivocal: 30-74 IU/mL Positive: >74 IU/mL Performed By: #### W SR, VITD, C3COMP, C4COMP, CRP, ENAID, CCP, ANAIFS, RF, DNAAB, CK ####[address] [phone] JAMEEL Antibody Panelon 022 Centromere <0.2 Normal <1.0 [facility] Comment on above: Result Comment: NEGA TIVE Negative: <1.0 AI Positive: >0.9 AI Test performed using the Multiplex Flow Immunoassay technology. Performed By: #### W SR, VITD, C3COMP, C4COMP, CRP, ENAID, CCP, ANAIFS, RF, DNAAB, CK ####[address] [phone] Chromatin Antibody <0.2 Normal <1.0 [facility] Comment on above: Result Comment: NEGA TIVE Negative: <1.0 AI Positive: >0.9 AI Test performed using the Multiplex Flow Immunoassay technology. Performed By: #### W SR, VITD, C3COMP, C4COMP, CRP, ENAID, CCP, ANAIFS, RF, DNAAB, CK ####[address] [place], [place] [phone] NICOLE 1 Antibody <0.2 Normal <1.0 [facility] Comment on above: Result Comment: NEGA TIVE Negative: <1.0 AI Positive: >0.9 AI Test performed using the Multiplex Flow Immunoassay technology. Performed By: #### W SR, VITD, C3COMP, C4COMP, CRP, ENAID, CCP, ANAIFS, RF, DNAAB, CK ####[address] [phone] Ribosomal SECURITY PROJECT MANAGER <0.2 Normal <1.0 [facility] Comment on above: Result Comment: NEGA TIVE Negative: <1.0 AI Positive: >0.9 AI Test performed using the Multiplex Flow Immunoassay technology. Performed By: #### W SR, VITD, C3COMP, C4COMP, CRP, ENAID, CCP, ANAIFS, RF, DNAAB, CK ####[address] [phone] SECURITY PROJECT MANAGER Antibody <0.2 Normal <1.0 [facility] Comment on above: Result Comment: NEGA TIVE Negative: <1.0 AI Positive: >0.9 AI Test performed using the Multiplex Flow Immunoassay technology. Performed By: #### W SR, VITD, C3COMP, C4COMP, CRP, ENAID, CCP, ANAIFS, RF, DNAAB, CK ####[address] [phone] Scleroderma IgG Ab <0.2 Normal <1.0 [facility] Comment on above: Result Comment: NEGA TIVE Negative: <1.0 AI Positive: >0.9 AI Test performed using the Multiplex Flow Immunoassay technology. Performed By: #### W SR, VITD, C3COMP, C4COMP, CRP, ENAID, CCP, ANAIFS, RF, DNAAB, CK ####[address] [place], [place] [phone] Sm Antibody <0.2 Normal <1.0 [facility] Comment on above: Result Comment: NEGA TIVE Negative: <1.0 AI Positive: >0.9 AI Test performed using the Multiplex Flow Immunoassay technology. Performed By: #### W SR, VITD, C3COMP, C4COMP, CRP, ENAID, CCP, ANAIFS, RF, DNAAB, CK ####[address] [phone] SSA Antibody <0.2 Normal <1.0 [facility] Comment on above: Result Comment: NEGA TIVE Negative: <1.0 AI Positive: >0.9 AI Test performed using the Multiplex Flow Immunoassay technology. Performed By: #### W SR, VITD, C3COMP, C4COMP, CRP, ENAID, CCP, ANAIFS, RF, DNAAB, CK ####[address] [place], [place] [phone] SSB Antibody <0.2 Normal <1.0 [facility] Comment on above: Result Comment: NEGA TIVE Negative: <1.0 AI Positive: >0.9 AI Test performed using the Multiplex Flow Immunoassay technology. Performed By: #### W SR, VITD, C3COMP, C4COMP, CRP, ENAID, CCP, ANAIFS, RF, DNAAB, CK ####[address] [phone] Rheumatoid Factoron 12-09-19 22 Rheumatoid Factor <10 Normal <16 [facility] Comment on above: Performed By: #### W SR, VITD, C3COMP, C4COMP, CRP, ENAID, CCP, ANAIFS, RF, DNAAB, CK ####[address] [phone] Sed Rate Westergrenon 2021 Sed Rate Westergren 20 mm/hr Normal 0-20 [facility] Comment on above: Performed By: #### W SR, VITD, C3COMP, C4COMP, CRP, ENAID, CCP, ANAIFS, RF, DNAAB, CK ####[address] [phone] Urinalysison 12-09-2021 Bilirubin, Urine Negative Normal Negative [facility] Comment on above: Performed By: #### U A ####[address] [phone] Clarity (U) Clear Normal Clear [facility] Comment on above: Performed By: #### U A ####[place] [phone] Color (U) Straw Critically abnormal Yellow [facility] Comment on above: Performed By: #### U A ####[place] [phone] Comments SEE COMMENT Normal [facility] Comment on above: Result Comment: Micr oscopic Examination Performed Performed By: #### U A ####[place] [phone] Epithelial cells LM Ql (Urine sed) SEE COMMENT Normal [facility] Comment on above: Result Comment: Few Squamous Epithelial Cells Performed By: #### U A ####[place] [phone] Glucose Ql (U) Negative Normal Negative [facility] Comment on above: Performed By: #### U A ####[place] [phone] Hemoglobin/Blood,Ur 1+ Critically abnormal Negative [facility] Comment on above: Performed By: #### U A ####[place] [phone] Ketones Ql (U) Negative Normal Negative [facility] Comment on above: Performed By: #### U A ####[place] [address] [place] [phone] Leukest Negative Normal Negative [facility] Comment on above: Performed By: #### U A ####[place] [phone] Nitrite Ql (U) Negative Normal Negative [facility] Comment on above: Performed By: #### U A ####[place] [address] [place], [place] [phone] pH (U) 6.0 [pH] Normal 5.0-8.0 [facility] Comment on above: Performed By: #### U A ####[place] [address] [place], [place] [phone] Protein, Urine Negative Normal Negative [facility] Comment on above: Performed By: #### U A ####[address] [phone] RBC 0-3 Normal 0-3 [facility] Comment on above: Performed By: #### U A ####[address] [phone] Specific [place], Ur 1.008 Normal 1.005-1.030 [facility] Comment on above: Performed By: #### U A ####[address] [phone] Urine Abdirizak Comment SEE COMMENT Normal [facility] Comment on above: Result Comment: N/A Performed By: #### U A ####[address] [phone] Urobilinogen (U) [Mass/Vol] Negative Normal Negative [facility] Comment on above: Performed By: #### U A ####[address] [phone] WBC 0-5 Normal 0-5 [facility] Comment on above: Performed By: #### U A ####[address] [phone] Vitamin D 25 Hydroxyon 12-09 Vitamin D 25 Hydroxy 27.5 ng/mL Low 31.0-80.0 [facility] Comment on above: Result Comment: Clas sification of 25 [place] Vitamin D status: Insufficiency/Moderate Deficiency: < or = 30 ng/mL Sufficiency/Optimal Levels: 31 to 80 ng/mL Toxicity: > 100 ng/mL Test performed by chemiluminescent immunoassay. Performed By: #### W SR, VITD, C3COMP, C4COMP, CRP, ENAID, CCP, ANAIFS, RF, DNAAB, CK ####[facility] [address] [place], [place] [phone] XR HAND 3V PA/LAT/OBL BILon 12-09-2021 XR HAND 3V PA/LAT/OBL ROSY * * *Final Rep ort* * * DATE OF EXAM: Dec 09 2021 3:05PM AOX [id number] - XR HAND 3V PA/LAT/OBL ROSY / PROCEDURE REASON: multiple diagnoses * * * * Physician Interpretation * * * * HISTORY (as given from clinical provider): Positive ZAID (antinuclear antibody) Pain in joint, multiple sites Vitamin D deficiency . Additional history provided by the performing technologist (if any): joint pain TECHNIQUE: XR HAND 3V PA/LAT/OBL ROSY Laterality: BILATERAL Views: 3 each COMPARISON: None RESULT: Right: Mild to moderate osteoarthritis of the DIP joint of the index and long finger with milder osteoarthritis of the IP joint of the thumb, DIP joint of the small finger, PIP joint of the long finger and second MCP joint. There are no erosions. Left: Moderate osteoarthritis of the DIP joints of the index and long fingers with milder osteoarthritis of the other DIP joints, the IP joint of the thumb, second and third MCP joints and first CMC joint. There is a small cyst in the proximal pole of the scaphoid. Carpal alignment is anatomic. No other significant abnormality. ------- IMPRESSION: OSTEOARTHRITIS Assistant Professor Of Biology: CELSO Transcribe Date/Time: Dec 09 2021 3:11P Dictated by : MIRIAM BILL MD This examination was interpreted and the report reviewed and electronically signed by: MIRIAM BILL MD on Dec 09 2021 3:12PM EST [id number] Normal [facility] CNOVon 08-14-2021 CNOV Office Visit (GYNMN) ---- ZAKIYA CUELLO ([id number]) 1975 F Date Time Provider Department 08/14/21 1:30 PM FATOUMATA WILD GYNMN During your visit today, we recorded the following information about you: Pulse Blood pressure Weight 93/minute 126/83 75.3 kg Fatoumata Wild MD 08/14/2021 10:37 PM Signed In office visit, August 14, 2021 Start review of records, labs, interim events 1:51 PM Zakiya Cuello is a 45 year old year old female. Patient presents with: Recheck HEPATITIS C SCREENING Never done HIV SCREENING Never done DTAP,TDAP,TD(1 - Tdap) Never done MAMMOGRAM Never done DEPRESSION SCREENING due on 02/13/2017 COLORECTAL CANCER SCREENING Never done INFLUENZA(1) due on 07/30/2021 Reviewed details of history and plans from last visit, see that note for details. Since then: Has not been feeling well at all, tons of stressors, especially with children. Seeing derm for telogen effluvium. Frustrated with continued hair loss despite being on meds. Is on the estradiol 2 mg, but she can't afford the DHEA that is $ 15-20 a month She reports she can't feel anything in her pelvis, clitoris, orgasm. Gets tingling in hands, feet, been diagnosed with neuropathy locally. On gabapentin and several other medications, reviewed after finding and pharmacy records, initially not reconciled with patient during nursing intake. Doesn't sleep well HPI similar to last visit, hoping for something that would help improve hair as well as sexual health. Feels that the anorgasmia is worse The following histories was reviewed and updated today: OB History T3 L3 SAB0 TAB1 Ectopic0 Multiple0 Live Births0 Comment: menarche 11 FFTP 19 no ACTIVE PROBLEM LIST Dyspnea Sleep Apnea Hair Loss Disorder Mixed Stress and Urge Urinary Incontinence Overactive Detrusor Voiding Dysfunction Cystocele, Lateral Prolapse of Vaginal Vault After Hysterectomy Symptomatic States Associated With Artificial Menopause Family History of Diabetes Mellitus (Dm) Female Orgasmic Disorder Postmenopausal Hrt (Hormone Replacement Therapy) Genital Herpes Encounter for Screening Mammogram for Malignant Neoplasm of Breast Insulin Resistance Hyperlipidemia Bilateral Fibrocystic Breast Changes Hirsutism Premature Surgical Menopause PAST MEDICAL HISTORY Diagnosis Date - Depression mostly stress related, seeing psychiatry and psychology - Diverticulosis - Family history of diabetes mellitus (DM) - 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 Due to DUB. no hx of endometriosis - PAST SURGICAL HISTORY OF 07/01/2015 Robotic-assisted laparoscopic uterosacral ligament suspension. 2. Lysis of adhesions.Monarc transobturator midurethral sling, ref [id number], lot [id number]. 4. Posterior repair. 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 Visit pulp cooker present: Berna Sethi MA GEN: Pleasant, cooperative, NAD SKIN: Color, texture, turgor nl. Warm, dry. ENDO: No obvious hirsutism signs. EYES: Conjunctivae clear. No discoloration. NECK: No mass LUNGS: Breathing comfortably without distress, CTAB HEART: RRR, no r/g ABDOMEN: Soft. NTND. No masses. PELVIC: external genitalia normal, normal Bartholin's glands, urethra, Temperance's glands, no vulvar lesions, good vaginal support, physiologic discharge present, normal appearing perineal body and perianal region. No cervical lesions. BIMANUAL: no adnexal masses and non-tender. uterus normal size, shape and consistency THE FOLLOWIN (more content not included)... Normal [facility] 05-08-2021 CNPN Telephone (DERBMN) ---- ZAKIYA CUELLO ([id number]) 1975 F Date Time Provider Department 05/08/21 TAMELA VASQUEZ During your visit today, we recorded the following information about you: Tamela Vasquez MD 05/08/2021 2:54 PM Signed I called patient to inform her of her recent blood tests which showed that her zinc was within normal limits but that her vitamin D3 and Ferritin levels were at the lower end of normal limits. I recommended that patient supplement with Vitamin D3 5000 international unit(s) Daily and slow Fe daily. I sent in prescriptions for both. I recommended patient follow up as scheduled. Patient expressed understanding and was grateful. 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] Order(s):cholecalci ferol (VITAMIN D-3) 5,000 unit tabTake 1 tablet by mouth once daily.Disp: 30 tabletRfl: 1 Ferrous Sulfate (SLOW FE) 142 mg (45 mg iron) TbERTake one tablet dailyDisp: 30 tabletRfl: 1 Prescriptions as of 05/08/2021 Sig: CHOLECALCIFEROL (VITAMIN D3) * Take 1 tablet by mouth once d* SLOW FE 142 MG (45 MG IRON) T* Take one tablet daily ESTRADIOL 2 MG TABLET TAKE 1 TABLET BY MOUTH EVERY * DHEA 13 MG VAGINAL SUPPOSITOR* Unwrap and insert 1 Supposito* SIMVASTATIN 20 MG TABLET Take 1 tablet by mouth daily * VALACYCLOVIR 500 MG TABLET Take 1 tablet by mouth once d* LYSINE 500 MG TABLET Take 1 tablet by mouth once d* METOPROLOL SUCCINATE ER 25 MG* Take 75 mg by mouth once john paul* Problem List As Of Date 05/08/2021 Noted Resolved Dyspnea [R06.00] 09/03/2014 Sleep apnea [G47.30] 09/03/2014 Hair loss disorder [L65.9] 05/14/2015 Mixed stress and urge urinary incontinence [N39*06/03/2015 Overactive detrusor [N32.81] 06/03/2015 Voiding dysfunction [N39.8] 06/03/2015 Cystocele, lateral [N81.12] 06/03/2015 Prolapse of vaginal vault after hysterectomy [N*06/03/2015 Symptomatic states associated with artificial m* Family history of diabetes mellitus (DM) [Z83.3] Female orgasmic disorder [F52.31] Postmenopausal HRT (hormone replacement therapy* Genital herpes [A60.00] Encounter for screening mammogram for malignant* 5 Insulin resistance [E88.81] 10/07/2015 Hyperlipidemia [E78.5] 09/29/2015 Bilateral fibrocystic breast changes [N60.11, N*10/25/2015 Hirsutism [L68.0] 07/05/2020 Premature surgical menopause [E89.40] Prescriptions ordered this encounter Disp Refills Start End CHOLECALCIFEROL (VITAMIN D3) 125 MCG* 30 t* 1 05/08/2021 07/07/2021 Route: ORAL Sig: Take 1 tablet by mouth once daily. SLOW FE 142 MG (45 MG IRON) TABLET,E* 30 t* 1 05/08/2021 Sig: Take one tablet daily Encounter Status:Closed by TAMELA VASQUEZ on 05/08/21 [facility] OBSOLETEon 05-01-2021 OBSOLETE Refill (GYNMN) ---- ZAKIYA CUELLO ([id number]) 1975 F Date Time Provider Department 05/01/21 FATOUMATA WILD During your visit today, we recorded the following information about you: Cheryl Leigh RN 05/02/2021 1:29 PM Signed Attempted to call pt. Message left to call office. Please Verify Rx renewal and pharmacy. LV 11/14/20 Cheryl Leigh RN May 02, 2021 1:29 PM Zehra Etienne [facility] 05/02/2021 2:51 PM Signed Patient returning nurse call She do need refill She feell she might need a higher dosage because she still have breast shrinkage. 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 She will follow-up with the pharmacy to obtain the vaginal DHEA, and start every other night (she was never able to use consistently due to the mixup at home). She will stop Mimvey, will increase estradiol 2 mg, with plans to increase as needed, with possible addition of progestin since she is so young (would d/c progestin at menopausal age). But will start with simpler approach first. I will see her back within 8 weeks. Need to keep close follow-up as we make dose adjustments until we can find something that works best for her. Discussed again addition of testosterone to help the anorgasmia, but potential implications on the alopecia, also want to ensure adequate estrogen first before considering androgen replacement. Discussed would benefit on working with PF PT close to home for the climax concerns ? No orders found for this visit on 11/14/20. ? Fatoumata Wild MD === Fatoumata Wild MD 05/02/2021 3:58 PM Signed At the last visit we talked about a follow-up within 8-10 weeks, that was back in October. Would recommend make follow-up appointment for dose adjustments. Limited refills provided The following approved medication requests have been transmitted electronically. Signed Prescriptions Disp Refills estradiol (ESTRACE) 2 mg tablet 90 tablet 0 Sig: TAKE 1 TABLET BY MOUTH EVERY DAY VELMA: No Authorizing Provider: FATOUMATA WILD MD Kira Cavanaugh, RN 05/02/2021 4:04 PM Signed Called patient, verified by name and Gave patient message from Dr. Wild, verbalizes understanding. Transferred to appointment line to schedule. Nuno Rivera RN Allergies As of Date: 05/01/2021 Noted Allergy Reaction BIAXIN (CLARITHROMYCIN) 09/03/2014 16 - Unknown PENICILLINS 09/03/2014 16 - Unknown SULFA (SULFONAMIDE ANTIBIOTICS) 09/03/2014 16 - Unknown Date Reviewed: 04/22/2021 Reviewed by: Kaylie Garvey RN - Fully Assessed Reason for Visit: Refill Request [94] Order(s):estradiol (ESTRACE) 2 mg tabletTAKE 1 TABLET BY MOUTH EVERY DAYDisp: 90 tabletRfl: 0 Prescriptions as of 05/01/2021 Sig: ESTRADIOL 2 MG TABLET TAKE 1 TABLET BY MOUTH EVERY * DHEA 13 MG VAGINAL SUPPOSITOR* Unwrap and insert 1 Supposito* SIMVASTATIN 20 MG TABLET Take 1 tablet by mouth daily * VALACYCLOVIR 500 MG TABLET Take 1 tablet by mouth once d* LYSINE 500 MG TABLET Take 1 tablet by mouth once d* METOPROLOL SUCCINATE ER 25 MG* Take 75 mg by mouth once john paul* Problem List As Of Date 05/01/2021 Noted Resolved Dyspnea [R06.00] 09/03/2014 Sleep apnea [G47.30] 09/03/2014 Hair loss disorder [L65.9] 05/14/2015 Mixed stress and urge urinary incontinence [N39*06/03/2015 Overactive detrusor [N32.81] 06/03/2015 Voiding dysfunction [N39.8] 06/03/2015 Cystocele, lateral [N81.12] 06/03/2015 Prolapse of vaginal vault after hysterectomy [N*06/03/2015 Symptomatic states associated with artificial m* Family history of diabetes mellitus (DM) [Z83.3] Female orgasmic disorder [F52.31] Postmenopausal HRT (hormone replacement therapy* Genital herpes [A60.00] Encounter for screening mammogram for malignant* 5 Insulin resistance [E88.81] 10/07/2015 Hyperlipidemia [E78.5] 09/29/2015 Bilateral fibrocystic breast changes [N60.11, N*10/25/2015 Hirsutism [L68.0] 07/05/2020 Premature surgical menopause [E89.40] Prescriptions ordered this encounter Disp Refills Start End ESTRADIOL 2 MG TABLET 90 t* 0 05/02/2021 Sig: TAKE 1 TABLET BY MOUTH EVERY DAY Medications Discontinued During This Encounter Prescriptions - estradiol (ESTRACE) 2 mg tablet (Discontinued) Take 1 tablet by mouth once daily. Encounter Status:Closed by NUNO RIVERA on 05/02/21 [facility] 04-22-2021 CNOV Office Visit (DERMMN) ---- ZAKIYA CUELLO ([id number]) 1975 F Date Time Provider Department 04/22/21 9:00 AM TAMELA VASQUEZ DERMMN During your visit today, we recorded the following information about you: Franklin Prather MD 05/13/2021 8:08 AM Signed NEW PATIENT Chief Complaint: Hair Loss History of Present Ilness: Zakiya Cuello is a 45 year old female with history of tachycardia (follows with cardiology) Patient is here for: 1) Hair loss Location: scalp, eyebrows, eyelashes; has noticed increased hair growth on face and arms Duration: started after hysterectomy 8 years ago and worsened after COVID diagnosis 1 year ago (March 26, 2020) Signs/symptoms: itchy on scalp; denies burning or pain Current treatment: biotin forte (several years) Past treatments: none - generalized all over scalp, increased shedding - also complains of very dry skin within past year - regular diet, eats red meat - had thyroid checked in June 2020 - within normal limits - denies history of hair loss in family - history of andometriosis and so had a hysterectomy -reports stress 07/08; reports that son recently diagnosed with autism Pertinent Past Medical History: History of skin cancer or atypical nevi No Specialty Problems Dermatology Problems Hair loss disorder Hirsutism Pertinent Family medical history: History of melanoma No Review of Systems: Constitutional: Denies fever, chills, night sweats, unintentional weight loss. Skin per HPI. Physical Exam: PHYSICAL EXAMINATION Alert and oriented x 3. In no apparent distress. Vital signs: There were no vitals taken for this visit. Examination of scalp and face and upper arms notable for: Skin type: II Hair type: long Hair loss: Area involved: Diffuse Same as family: No Diffuse erythema: 0 Folliculitis: 0 Diffuse Scale: 0 Pull test: 3 or more hairs Regrowing hairs: Some 1 Odran lamp: Not performed Face: Eyelashes - normal, Eyebrows - normal Excess hair on body: No Dysesthesia: Present; itching Telangiectasis: Absent Perifollicular hyperpigmentation: Absent Perifollicular scale: Absent Perifollicular hyperkeratosis: Absent Perifollicular erythema: Absent LAB HISTORY: Component Latest Ref Rng AND Units 07/10/2020 08/15/2020 Glucose 74 - 99 mg/dL 96 BUN 7 - 21 mg/dL 13 Creatinine 0.58 - 0.96 mg/dL 0.73 Sodium 136 - 144 mmol/L 143 Potassium 3.7 - 5.1 mmol/L 4.1 Chloride 97 - 105 mmol/L 104 CO2 22 - 30 mmol/L 26 Anion Gap 9 - 18 mmol/L 13 Calcium 8.5 - 10.2 mg/dL 10.0 eGFR- >60 eGFR-All Other Races . 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 Labs today: Iron studies, Vitamin D and Zinc 2. Recommended therapy: -Eat at least 60 grams of protein daily -Recommend activities to decrease stress 3. Future therapy: Based on results of labs RETURN TO CLINIC: June 03, 2021 9:20 AM The documentation for this note was completed by Bre Tyler, BANDAR and Kaylie Garvey, RN acting as scribe for Tamela Vasquez MD. April 22, 2021 8:23 AM. I agree with the Chief Complaint, ROS, and Past Histories independently gathered by the clinical ict support engineer and the remaining scribed note accurately describes my personal service to the patient. Tamela Vasquez MD Dermatology Resident, PGY-3 April 22, 2021 I was present during the critical/duque portions of this encounter and during procedures and I agree with the evaluation, assessment, and treatment as outlined. Chart reviewed and care discussed with patient and other involved physicians. new pt c/o hair loss several insults in erecnt past, mainly covid infection last year hair MD Tamela Nobles MD 04/22/2021 9:23 AM Addendum 1. Labs today: Iron studies, Vitamin D and Zinc 2. Recommended therapy: -Eat at least 60 grams of protein daily -Recommend activities to decrease stress 3. 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 Normal [facility] Ferritinon 04-22-2021 Ferritin [Mass/Vol] 44.4 ng/mL Normal 14.7-205.1 [facility] Comment on above: Performed By: #### F ERR, ZINC, IRON, VITD ####[address] [phone] Iron and TIBCon 04-22-2021 Iron [Mass/Vol] 79 ug/dL Normal 41-186 [facility] Comment on above: Performed By: #### F ERR, ZINC, IRON, VITD ####[address] [place], [place] [phone] TIBC 382 ug/dL Normal 232-386 [facility] Comment on above: Performed By: #### F ERR, ZINC, IRON, VITD ####[address] [place], [place] [phone] Transferrin Saturatn 21 % Normal 15-57 [facility] Comment on above: Performed By: #### F ERR, ZINC, IRON, VITD ####[address] [place], [place] [phone] Vitamin D 25 Hydroxyon 04-22 Vitamin D 25 Hydroxy 32.7 ng/mL Normal 31.0-80.0 [facility] Comment on above: Result Comment: Clas sification of 25 [place] Vitamin D status: Insufficiency/Moderate Deficiency: < or = 30 ng/mL Sufficiency/Optimal Levels: 31 to 80 ng/mL Toxicity: > 100 ng/mL Test performed by chemiluminescent immunoassay. Performed By: #### F ERR, ZINC, IRON, VITD ####[facility] [id number] [place], [place] [phone] Zincon 04-22-2021 Zinc 79 ug/dL Normal 55-150 [facility] Comment on above: Result Comment: This test was developed and its performance characteristics determined by [facility] Pathology and Laboratory Medicine [place] ([facility]). It has not been cleared or approved by the FDA. [facility] is regulated under CLIA as qualified to perform high complexity testing. This test is used for clinical purposes. It should not be regarded as investigational or for research. Performed By: #### F ERR, ZINC, IRON, VITD ####[facility] [id number] [place], [place] [phone] Vital Signs Date Time Vital Sign Value Performing Clinician Faci lity 03-31-2023 10:35-0400 Body height 160.02 cm MD Eugenio Obrien Work Phone: [facility] 03-31-2023 10:35-0400 Body temperature 98 [degF] MD Eugenio Obrien Work Phone: [facility] 03-31-2023 10:35-0400 Body weight 77.7 kg MD Eugenio Obrien Work Phone: [facility] 03-31-2023 10:35-0400 Diastolic blood pressure 91 mm[Hg] MD Eugenio Obrien Work Phone: [facility] 03-31-2023 10:35-0400 Heart rate 73 /min MD Eugenio Obrien Work Phone: [facility] 03-31-2023 10:35-0400 Respiratory rate 16 /min MD Eugenio Obrien Work Phone: [facility] 03-31-2023 10:35-0400 SaO2% (BldA) [Mass fraction] 98 % MD Eugenio Obrien Work Phone: [facility] 03-31-2023 10:35-0400 Systolic blood pressure 151 mm[Hg] MD Eugenio Obrien Work Phone: [facility] 09-05-2022 18:50-0400 Diastolic blood pressure 88 mm[Hg] MD Eugenio Obrien Work Phone: [facility] 09-05-2022 18:50-0400 Heart rate 86 /min MD Eugenio Obrien Work Phone: [facility] 09-05-2022 18:50-0400 Respiratory rate 18 /min MD Eugenio Obiren Work Phone: [facility] 09-05-2022 18:50-0400 SaO2% (BldA) [Mass fraction] 99 % MD Eugenio Obrien Work Phone: [facility] 09-05-2022 18:50-0400 Systolic blood pressure 142 mm[Hg] MD Eugenio Obrien Work Phone: [facility] 09-05-2022 17:05-0400 Body height 166.37 cm MD Eugenio Obrien Work Phone: [facility] 09-05-2022 17:05-0400 Body temperature 98.1 [degF] MD Eugenio Obrien Work Phone: [facility] 09-05-2022 17:05-0400 Body weight 76 kg MD Eugenio Obrien Work Phone: [facility] Encounters Encounter Date Encounter Type Care Provider Facility Start: 11-01-2023 End: 11-02-2023 ambulatory Ramon Rivas MD Facility:[facility] Start: 10-04-2023 End: 10-05-2023 ambulatory Ramon Rivas MD Facility:[facility] Start: 07-21-2023 End: 07-21-2023 ambulatory Eugenio Obrien Facility:[facility] Start: 07-21-2023 End: 07-21-2023 ambulatory MD Eugenio Obrien Work Phone: [facility] Work Phone: Start: 07-21-2023 End: 07-21-2023 Patient encounter procedure MD Eugenio Obrien Work Phone: [facility] [place] Work Phone: Start: 06-02-2023 End: 06-02-2023 ambulatory SWETA MILEY [facility] Start: 04-30-2023 ambulatory ANDRIUS GIEDRAMANISH Faci lity:[facility] Start: 04-30-2023 End: 05-01-2023 ambulatory Ramon Rivas MD Facility:[facility] Start: 03-31-2023 End: 03-31-2023 Emergency department patient visit Eugenio Obrien Facility:[facility] Start: 03-31-2023 End: 03-31-2023 Emergency department patient visit MD Eugenio Obrien Work Phone: [facility] Work Phone: Start: 03-25-2023 End: 03-25-2023 ambulatory MARYBEL SWANSON . Facility:[facility] Start: 12-18-2022 Telephone encounter Lake Dailey DO Work Phone: Ophthalmology Comment on above: Orders Start: 12-07-2022 End: 12-08-[address] EUGENIO OBRIEN . Facility:[facility] Start: 11-09-2022 Refill Fatoumata Wild MD Work Phone: Gynecology Comment on above: Refill Request Start: 11-06-2022 End: 11-06-2022 ambulatory Eugenio Obrien Facility:[facility] Start: 10-27-2022 End: 10-28-[address] EUGENIO OBRIEN . Facility:[facility] Start: 09-22-2022 End: 09-22-2022 ambulatory АЛЕКСАНДР GÓMEZ Facility:[facility] Start: 09-09-2022 End: 09-10-[address] EUGENIO OBRIEN . Facility:[facility] Start: 09-05-2022 End: 09-05-2022 Emergency department patient visit Eugenio Obrien Facility:[facility] Start: 09-05-2022 End: 09-05-2022 Emergency department patient visit MD Eugenio Obrien Work Phone: [facility] Start: 09-02-2022 End: 09-03-[address] EUGENIO OBRIEN . Facility:[facility] Start: 07-29-[address] EUGENIO OBRIEN . Facili ty:[facility] Start: 07-06-2022 End: 07-06-[address] EUGENIO OBRIEN . Facility:[facility] Start: 05-25-2022 End: 05-25-[address] EUGENIO OBRIEN . Facility:[facility] Start: 05-01-[address] EUGENIO OBRIEN . Facili ty:[facility] Procedures Date Procedure Procedure Detail Performing Clinician Start: 09-05-2022 Computed tomography of abdomen and pelvis with contrast MD Eugenio Obrien Work Phone: Plan of Treatment Date Care Activity Detail Author Start: 07-10-2025 LIPID SCREEN LIPID SCREEN [facility] Start: 07-21-2023 Dehydroepiandrosterone sulfate level [facility] Start: 07-21-2023 [facility] Start: 07-10-2023 DIABETES SCREEN DIABETES SCREEN [facility] Start: 11-29-2022 DEPRESSION ASSESSMENT DEPRESSION ASSESSMENT [facility] Start: 07-30-2022 Influenza vaccination INFLUENZA (#1) [facility] Start: 11-29-2021 DEPRESSION ASSESSMENT DEPRESSION ASSESSMENT [facility] Start: 08-07-2021 COVID-19 VACCINE (3 - Booster for Moderna series) COVID-19 VACCINE (3 - Booster for Moderna series) [facility] Start: 2018 COLOGUARD (FIT-DNA) COLOGUARD (FIT-DNA) [facility] Start: 2018 Colonoscopy COLONOSCOPY [facility] Start: 2018 COLORECTAL CANCER SCREENING COLORECTAL CANCER SCREENING [facility] Start: [address] COLONOGRAPHY [facility] Start: 2018 FECAL OCCULT BLOOD FECAL OCCULT BLOOD [facility] Start: 2018 SIGMOIDOSCOPY SIGMOIDOSCOPY [facility] Start: 2013 Mammography MAMMOGRAM [facility] Start: 1992 Urine microalbumin profile DTAP,TDAP,TD (1 - Tdap) [facility] Start: 1991 HEPATITIS C SCREENING HEPATITIS C SCREENING [facility] Start: 1991 HIV SCREENING HIV SCREENING [facility] Start: 1975 HEPATITIS B (1 of 3 - 3-dose series) HEPATITIS B (1 of 3 - 3-dose series) [facility] Patient Education [facility] Work Phone: Patient referral [facility] Work Phone: Testosterone Free [M ass/volume] in Serum or Plasma [facility] Payers Date Payer Category Payer Unknown 2022 Self-pay [id number] 2019 Medicaid [employer] [place] [id number] 2019-Present [id number] [place] [id number] Medicaid [id number] 1975 Unknown [id number] [id number] 1975 Unknown [id number] [id number]3 1975 Unknown [id number] [id number]3 1975 Unknown [id number] 2.16.840.1.270200.3.579.2.593 1975 Unknown [id number] 2.16.840.1.873716.3.579.2.593 1975 Unknown [id number] 2.16.840.1.180147.3.579.2.593 1975 Unknown [id number] 2.16.840.1.205609.3.579.2.593 1975 Unknown [id number] 2.16.840.1.704216.3.579.2.593 1975 Unknown [id number] 2.16.840.1.279678.3.579.2.593 1975 Unknown [id number] 2.16.840.1.794788.3.579.2.593 1975 Unknown [id number] 2.16.840.1.872997.3.579.2.593 1975 Unknown [id number] 2.16.840.1.393997.3.579.2.196 1975 Unknown [id number] 2.16.840.1.823938.3.579.2.196 1975 Unknown [id number] 2.16.840.1.738500.3.579.2.196 1961 Medicaid [id number] 1961 Self-pay [id number] Unknown [place] BC/BS [id number] Unknown [id number] [id number] Unknown [id number] .[id number] Unknown [id number] .[id number] Unknown [id number] [id number] Social History Date Type Detail Facility Start: 09-05-2022 End: 03-31-2023 Tobacco smoking status NHIS Never smoked tobacco (finding) [facility] Start: 1975 Sex Assigned At Female F [facility] Start: 06-10-2015 Tobacco use and exposure Smokeless tobacco non-user [facility] Start: 01-08-2022 Alcohol intake Current drinke r of alcohol (finding) [facility] Start: 10-25-2015 Alcohol Comment social [facility] Start: 1975 Sex Assigned At Not on file C [facility] Medical Equipment Procedure Code Equipment Code Equipment Origin al Text Equipment Identifier Dates Evelyn Ambrosio [facility] - [id number] Start: 07-01-2015 Clinical Notes 04-22-2021 to 06-02-2023 Telephone Encounter - Casie Neil - 12/24/2022 10:47 AM ESTTelephone Encounter - Mckenzie Elam - 12/18/2022 3:39 PM ESTTelephone Encounter - Fatoumata Wild MD - 11/11/2022 5:00 PM EST Note Date & Type Note Facility 06-02-2023 Note Attestation signed by Sweta Gamez MD at 06/08/2023 9:40 PM I personally saw and examined the patient on the same date of service as resident/fellow . I discussed the findings and therapeutic plan with the resident/fellow . I agree with the documentation, except for any edits/updates below. Teaching Physician's Revisions: Subjective Chief complaint: Chief Complaint Patient presents with Left Hand - Pain 06/02/23 Zakiya Cuello is a 47 y.o. female presenting for evaluation of left index finger pain. Patient states that on April 29 she smashed her left index finger in a car door. This resulted in the immediate onset of pain and swelling over the left index DIP joint. Patient also noticed a lag/lack of extension of the terminal index finger following the injury. Patient subsequently went to outside ED for further evaluation and treatment. X-rays at that time revealed a bony mallet injury to the left index finger. Patient was placed in a finger splint and referred to [facility] for further evaluation and treatment. In the interim, patient ports that she has been doing well. She has been wearing her splint almost 21/06. She still endorses some tenderness to the dorsal aspect of the left index finger. Denies numbness, tingling, and weakness of the left upper extremity. Previous Treatments: bracing ROS: Denies fevers, chills, and other constitutional symptoms. Denies shortness of breath. Patient History History reviewed. No pertinent surgical history. Past Medical History: Diagnosis Date Diabetes mellitus ([facility]) Objective General: Body mass index is 28.52 kg/m???. There were no vitals filed for this visit. No acute distress, comfortable Respiratory: Unlabored breathing with normal rate, no cough Cardiovascular: Warm well perfused extremities Psych: Appropriate mood behavior Left Hand: Inspection- no ecchymosis, no edema, no effusion Tender to palpation over dorsal aspect left index finger DIP joint Strength: network systems consultant deferred 2/2 pain, thumb 5/5, interossei 5/5 Sensation: intact over median, ulnar, and radial nerve distributions Tinel (-) at carpal tunnel Jody's test (-) Cardiovascular: Well-perfused digits Imaging: We have personally reviewed the following images and our independent interpretation is as follows: Radiographs of left hand taken on April 2023 were performed and reviewed by myself which reveals: Bony mallet avulsion injury of the left index finger. Assessment/Plan Zakiya Cuello is a 47 y.o. female with Mallet deformity of left index finger Discussed the nature of the disease as well as treatment options including conservative vs surgical interventions Conservative interventions including: Continued splinting Surgical interventions including: Not applicable -Continue use of finger splint for an additional 1-2 weeks to the left index finger -Return to clinic as needed if symptoms worsen or fail to improve Rafi Patel MD Orthopedic Surgery Resident Physician Pager: [phone] 06/02/23 11:35 AM By using the attestations below, the signing clinician agrees that I have read and verify that the documentation has been personally reviewed by me and ensure that the documentation accurately reflects the encounter. GC: I personally saw this patient on the day of the encounter, performed the duque portion(s) of the service and participated in the management and confirm the resident's documentation. Please note there may be an additional personal documentation from me. [facility] 12-24-2022 Miscellaneous Notes Images from the original note were not included. Contacted the patient and left a message the prescription has been updated. Also faxed the prescription to [facility] [place] - [facility] as requested. Lake Ro, OD You 18 hours ago (4:03 PM) The patient's glasses prescription has been finalized and should be available on My Chart. You Lake Ro, OD 3 days ago CLAIRE Mckenna, is there any way you can release the manifest for the patient for their appointment with you 10/2021? Lake Dailey, DO [facility] 4 days ago The patient was not refracted by us because she already has an ammonia still operator (Dr Lake Ro) who takes care of her glasses. She should contact his office. [facility] calling for pts glasses prescription. Please fax to [phone]. Thank you! documented in this encounter [facility] 11-11-2022 Miscellaneous Notes Noted, thanks Phoned pt, verified name/ Advised pt she is very overdue for f/u appt with Dr. Troy MARTIN 08/14/21, was to f/u in 3-4 mos Pt was already given 3 mo supply in Jul. Advised pt will need appt for refill She will schedule with Dr. Brown or Krystyna Shankar CNP for sooner appt & will schedule a further out follow up with Dr. Wild Pt will ask her PCP for Progesterone refill. Update to Dr. Troy Lubin RN documented in this encounter [facility] 01-08-2022 Note HNO ID: [id number] Author: Lake Dailey DO Service: ? 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 I suspect her 20/40 Visual acuity Left eye is secondary to a mild amblyopia. I have confirmed and edited as necessary the relevant ophthalmic history, ROS, and the neuro exam findings as obtained by others. I have seen and examined this patient. I have discussed the case and the management of this patient's care with the Resident/Fellow, if applicable. I also have reviewed and agree with the assessment and plan as stated above and agree with all of its relevant components. Lake Dailey DO January 08, 2022 9:22 AM [facility] 12-09-2021 Note HNO ID: [id number] Author: RT Kim(R) Service: Radiology Author Type: Technologist Type: Progress Notes Filed: 12/09/2021 3:17 PM Note Text: Radiology Service Progress Note PATIENT NAME: Zakiya Cuello DATE OF SERVICE: December 09, 2021 TIME: 3:17 PM PATIENT IDENTITY VERIFICATION COMPLETED USING TWO (2) IDENTIFIERS: Name and Date of confirmed by patient verbally. FALL SCREENING: Has the patient had 2 falls in the last year or 1 fall with injury or currently using an Ambulatory Assistive Device (Walker, Cane, Wheelchair, Crutches, etc.)? No PATIENT GENDER DATA: Female. status: : No status: NO. PATIENT RELEVANT IMPLANT DATA REVIEWED: Not Applicable RADIOLOGY DEPARTMENT: General X-ray: Exam(s) Completed: Upper Extremity X-Ray(s): Hand, bilateral PERIPHERAL IV DATA: Not applicable SIGNED BY: RT Kim(R) December 09, 2021 3:17 PM [facility] 12-09-2021 Note HNO ID: [id number] Author: Neeta Amador MD Service: ? Author Type: Physician Type: Progress Notes Filed: 12/09/2021 2:47 PM Note Text: RHEUMATOLOGY NEW PATIENT NOTE 46 year old female with PMH significant for genital herpes, depression who presents for an evaluation for borderline lupus test Positive ZAID Consult requested by: Zakiya Storey CNP HPI Patient states she had got blood work done as she was having redness in her hands and feet for about 6 months to 1 year She was having joint pain in her fingers-PIPs, palm area. Feels she has swelling in her hands-no erythema, warmth. Worse with activity Endorses having wrist pain, left>right Worse with activity Morning stiffness lasting for about 2 hours, moving around makes it better Ibuprofen 800 mg QID sometimes for pain Also taking gabapentin for neuropathic pain arm soreness with activity, Feels sore when she is physically doing things-more so right upper arm Also has same with both calves when she walks With rest she feels better Low back pain associated with herpes flares Midline, nonradiating, flares lasting 3-4 days once a month Chronic neuropathy-taking gabapentin Has been having nystagmus since and has been scheduled to see neurophthalmology She reports having changes in color in hands with cold. No ulcers at tip of fingers. Fatigue has been an ongoing issue. Has ALAN-has been recommended to start using CPAP Multiple stressors-kid with autism Not able to exercise Tearful Review of Systems for autoimmune rheumatic diseases (Lupus/MCTD/PSS) Rash: No Photosensitivity: No Raynaud's: No GERD: Yes Bowel:(diarrhea/constipation) constipation Seizure: No Psychosis: No Organic Brain Syndrome: No Visual Disturbances: Worse since COV Cranial Nerve disorder: No Lupus Headache: Yes CVA: No Vasculitis: No Sicca symptoms: dry mouth Arthritis: No Arthralgias Yes Myositis: No Myalgias No Urinary Casts: No Hematuria: No Proteinuria: No Pyuria: No Alopecia: No Mucosal Ulcers: Yes Pleurisy: No Pericarditis: No Fever: No Thrombocytopenia: No Leukopenia: No Thrombotic events No Miscarriages No Obstetrics history: No family history of Rheumatoid arthritis, systemic lupus erythematosus,scleroderma in her known family. 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 Due to DUB. no hx of endometriosis - PAST SURGICAL HISTORY OF 07/01/2015 Robotic-assisted laparoscopic uterosacral ligament suspension. 2. Lysis of adhesions.Monarc transobturator midurethral sling, ref [id number], lot [id number]. 4. Posterior repair. - REMOVAL ADENOIDS,PRIMARY,<12 Y/O Adenoidectomy - REMOVAL OF TONSILS,<12 Y/O Tonsillectomy FAMILY HISTORY Problem Relation Age of Onset - Diabetes Mother - Thyroid Mother - None Father - Thyroid Sister - None Brother - other (healthy [Other]) Son - other (healthy [Other]) Son - other (healthy [Other]) Son Social History Tobacco Use - Smoking status: Never Smoker - Smokeless tobacco: Never Used Substance Use Topics - Alcohol use: Yes Comment: social - Drug use: No Current Outpatient Medications Medication Sig - SYMBICORT 160-4.5 mcg/actuation inhaler INHALE 2 PUFFS BY MOUTH TWICE DAILY *RINSE AFTER USE* - estradiol (ESTRACE) 0.01 % (0.1 mg/gram) vaginal cream Apply sparingly every other day to vaginal opening. - progesterone micronized (PROMETRIUM) 100 mg capsule Take 1 pill every evening with dinner. Needs food for absorption. Can't be used with peanut allergy. - gabapentin (NEURONTIN) 100 mg capsule Take 100 mg by mouth three times daily. - doxepin capsule 50 mg TAKE 1 CAPSULE BY MOUTH EVERYDAY AT BEDTIME - cloNIDine HCl (CATAPRES) 0.1 mg tablet Take 0.1 mg by mouth three times daily. - REXULTI 1 mg tablet Take 1 mg by mouth once daily. - LATUDA 40 mg tablet TAKE 1 TABLET BY MOUTH ONCE A DAY WITH FOOD (AT LEAST 350 CALORIES) - Ferrous Sulfate (SLOW FE) 142 mg (45 mg iron) TbER Take one tablet daily - estradiol (ESTRACE) 2 mg tablet TAKE 1 TABLET BY MOUTH EVERY DAY - simvastatin (ZOCOR) 20 mg tablet Take 1 tablet by mouth daily at bedtime. GENERIC IS OK - valACYclovir (VALTREX) 500 mg t (more content not included)... [facility] 10-30-2021 Note HNO ID: [id number] Author: Lake Ro OD Service: ? Author Type: SUMO WRESTLER Type: Progress Notes Filed: 10/30/2021 9:59 AM Note Text: ASSESSMENT/PLAN: 1. Horizontal nystagmus - ICD9: 379.56, ICD10: H55.09 (primary diagnosis) Patient has never been told in the past about nystagmus Vision difficulty began immediately after Covid-19 Dx February 2020 2. 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 Myopia, bilateral - ICD9: 367.1, ICD10: H52.13 4. Regular astigmatism, bilateral - ICD9: 367.21, ICD10: H52.223 hold spec Rx at this time Recommend consult with Dr. Dailey for suspected onset of nystagmus Both eyes Lake Ro, OD I have confirmed and edited as necessary the relevant ophthalmic history, ROS, and the neuro exam findings as obtained by others. I have seen and examined this patient. I have discussed the case and the management of this patient's care with the Resident/Fellow, if applicable. I also have reviewed and agree with the assessment and plan as stated above and agree with all of its relevant components. Lake Ro, BILLY October 30, 2021 9:56 AM [facility] 10-20-2021 Note HNO ID: [id number] Author: Lake Ro OD Service: ? Author Type: SUMO WRESTLER Type: Progress Notes Filed: 10/20/2021 9:06 AM Note Text: ASSESSMENT/PLAN: 1. Horizontal nystagmus - ICD9: 379.56, ICD10: H55.09 (primary diagnosis) Patient educated 2. Myopia, bilateral - ICD9: 367.1, ICD10: H52.13 3. Bilateral presbyopia - ICD9: 367.4, ICD10: H52.4 4. Regular astigmatism, bilateral - ICD9: 367.21, ICD10: H52.223 Hold on spec Rx at this time 5. 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 I have seen and examined this patient. I have discussed the case and the management of this patient's care with the Resident/Fellow, if applicable. I also have reviewed and agree with the assessment and plan as stated above and agree with all of its relevant components. Lake Ro, OD October 20, 2021 9:04 AM [facility] 08-15-2021 Note HNO ID: [id number] Author: Fatoumata Wild MD Service: ? Author Type: Physician Type: Progress Notes Filed: 08/14/2021 10:37 PM Note Text: I spent a total of 40+ minutes on the date of the service which included preparing to see the patient, [id number] patient care, completing clinical documentation, obtaining and/or reviewing separately obtained history, performing a medically appropriate examination, counseling and educating the patient/family/caregiver, ordering medications, tests, or procedures and independently interpreting results (not separately reported). [facility] 08-14-2021 Note HNO ID: [id number] Author: Fatoumata Wild MD Service: ? Author Type: Physician Type: Progress Notes Filed: 08/14/2021 10:37 PM Note Text: In office visit, August 14, 2021 Start review of records, labs, interim events 1:51 PM Zakiya Cuello is a 45 year old year old female. Patient presents with: Recheck HEPATITIS C SCREENING Never done HIV SCREENING Never done DTAP,TDAP,TD(1 - Tdap) Never done MAMMOGRAM Never done DEPRESSION SCREENING due on 02/13/2017 COLORECTAL CANCER SCREENING Never done INFLUENZA(1) due on 07/30/2021 Reviewed details of history and plans from last visit, see that note for details. Since then: Has not been feeling well at all, tons of stressors, especially with children. Seeing derm for telogen effluvium. Frustrated with continued hair loss despite being on meds. Is on the estradiol 2 mg, but she can't afford the DHEA that is $ 15-20 a month She reports she can't feel anything in her pelvis, clitoris, orgasm. Gets tingling in hands, feet, been diagnosed with neuropathy locally. On gabapentin and several other medications, reviewed after finding and pharmacy records, initially not reconciled with patient during nursing intake. Doesn't sleep well HPI similar to last visit, hoping for something that would help improve hair as well as sexual health. Feels that the anorgasmia is worse The following histories was reviewed and updated today: OB History T3 L3 SAB0 TAB1 Ectopic0 Multiple0 Live Births0 Comment: menarche 11 FFTP 19 no ACTIVE PROBLEM LIST Dyspnea Sleep Apnea Hair Loss Disorder Mixed Stress and Urge Urinary Incontinence Overactive Detrusor Voiding Dysfunction Cystocele, Lateral Prolapse of Vaginal Vault After Hysterectomy Symptomatic States Associated With Artificial Menopause Family History of Diabetes Mellitus (Dm) Female Orgasmic Disorder Postmenopausal Hrt (Hormone Replacement Therapy) Genital Herpes Encounter for Screening Mammogram for Malignant Neoplasm of Breast Insulin Resistance Hyperlipidemia Bilateral Fibrocystic Breast Changes Hirsutism Premature Surgical Menopause PAST MEDICAL HISTORY Diagnosis Date - Depression mostly stress related, seeing psychiatry and psychology - Diverticulosis - Family history of diabetes mellitus (DM) - 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 Due to DUB. no hx of endometriosis - PAST SURGICAL HISTORY OF 07/01/2015 Robotic-assisted laparoscopic uterosacral ligament suspension. 2. Lysis of adhesions.Monarc transobturator midurethral sling, ref [id number], lot [id number]. 4. Posterior repair. 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 Visit pulp cooker present: Berna Sethi MA GEN: Pleasant, cooperative, NAD SKIN: Color, texture, turgor nl. Warm, dry. ENDO: No obvious hirsutism signs. EYES: Conjunctivae clear. No discoloration. NECK: No mass LUNGS: Breathing comfortably without distress, CTAB HEART: RRR, no r/g ABDOMEN: Soft. NTND. No masses. PELVIC: external genitalia normal, normal Bartholin's glands, urethra, Temperance's glands, no vulvar lesions, good vaginal support, physiologic discharge present, normal appearing perineal body and perianal region. No cervical lesions. BIMANUAL: no adnexal masses and non-tender. uterus normal size, shape and consistency THE FOLLOWING ABNORMAL FINDINGS WERE NOTED: Atrophy, Contracture of the vault, Narrowing at the introitus, small speculum High pelvic floor tone with tenderness upon palpation of pelvic floor musculature, most notable 4-8 o'clock-severe, a (more content not included)... [facility] 04-22-2021 Note HNO ID: [id number] Author: Franklin Prather MD Service: ? Author Type: Physician Type: Progress Notes Filed: 05/13/2021 8:08 AM Note Text: NEW PATIENT Chief Complaint: Hair Loss History of Present Ilness: Zakiya Cuello is a 45 year old female with history of tachycardia (follows with cardiology) Patient is here for: 1) Hair loss Location: scalp, eyebrows, eyelashes; has noticed increased hair growth on face and arms Duration: started after hysterectomy 8 years ago and worsened after COVID diagnosis 1 year ago (March 26, 2020) Signs/symptoms: itchy on scalp; denies burning or pain Current treatment: biotin forte (several years) Past treatments: none - generalized all over scalp, increased shedding - also complains of very dry skin within past year - regular diet, eats red meat - had thyroid checked in June 2020 - within normal limits - denies history of hair loss in family - history of andometriosis and so had a hysterectomy -reports stress 07/08; reports that son recently diagnosed with autism Pertinent Past Medical History: History of skin cancer or atypical nevi No Specialty Problems Dermatology Problems Hair loss disorder Hirsutism Pertinent Family medical history: History of melanoma No Review of Systems: Constitutional: Denies fever, chills, night sweats, unintentional weight loss. Skin per HPI. Physical Exam: PHYSICAL EXAMINATION Alert and oriented x 3. In no apparent distress. Vital signs: There were no vitals taken for this visit. Examination of scalp and face and upper arms notable for: Skin type: II Hair type: long Hair loss: Area involved: Diffuse Same as family: No Diffuse erythema: 0 Folliculitis: 0 Diffuse Scale: 0 Pull test: 3 or more hairs Regrowing hairs: Some 1 Doran lamp: Not performed Face: Eyelashes - normal, Eyebrows - normal Excess hair on body: No Dysesthesia: Present; itching Telangiectasis: Absent Perifollicular hyperpigmentation: Absent Perifollicular scale: Absent Perifollicular hyperkeratosis: Absent Perifollicular erythema: Absent LAB HISTORY: Component Latest Ref Rng AND Units 07/10/2020 08/15/2020 Glucose 74 - 99 mg/dL 96 BUN 7 - 21 mg/dL 13 Creatinine 0.58 - 0.96 mg/dL 0.73 Sodium 136 - 144 mmol/L 143 Potassium 3.7 - 5.1 mmol/L 4.1 Chloride 97 - 105 mmol/L 104 CO2 22 - 30 mmol/L 26 Anion Gap 9 - 18 mmol/L 13 Calcium 8.5 - 10.2 mg/dL 10.0 eGFR- >60 eGFR-All Other Races . 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 Labs today: Iron studies, Vitamin D and Zinc 2. Recommended therapy: -Eat at least 60 grams of protein daily -Recommend activities to decrease stress 3. Future therapy: Based on results of labs RETURN TO CLINIC: June 03, 2021 9:20 AM The documentation for this note was completed by Bre Tyler, RN and Kaylie Garvey, RN acting as scribe for Tamela Vasquez MD. April 22, 2021 8:23 AM. I agree with the Chief Complaint, ROS, and Past Histories independently gathered by the clinical ict support engineer and the remaining scribed note accurately describes my personal service to the patient. Tamela Vasquez MD Dermatology Resident, PGY-3 April 22, 2021 I was present during the critical/duque portions of this encounter and during procedures and I agree with the evaluation, assessment, and treatment as outlined. Chart reviewed and care discussed with patient and other involved physicians. new pt c/o hair loss several insults in erecnt past, mainly covid infection last year hair Franklin Prather MD [facility] Evaluation note No assessment inform ation available [facility] Work Phone: Hospital Discharge instructions Additional Instructions Follow-up with your primary care doctor Return to ED if develop worsening symptoms or concerns [facility] Work Phone: Summary Purpose Family History No Family History Records FoundNo Family History Records FoundNo Family History Records FoundNo Family History Records FoundNo Family History Records Found Advance Directives No Advanced Directives Records Found Advance Directive Response Recorded Date/ Time Advance Directives No July 17, 2019 4:09pm Chief Complaint and Reason for Visit Chief Complaint Abd Pain/Back Pain Chief Complaint nose pain back pain Chief Complaint l65.9 Additional Source Comments INFORMATION SOURCE (unrecogn ized section and content) DATE CREATED AUTHOR 01/16/2022 [facility] DATE CREATED AUTHOR AUTHOR'S ORGANIZ ATION 04/09/2023 [facility] DATE CREATED AUTHOR AUTHOR'S ORGANIZ ATION 06/09/2023 [facility] DATE CREATED AUTHOR AUTHOR'S ORGANIZ ATION 07/30/2023 [facility] DATE CREATED AUTHOR AUTHOR'S ORGANIZ ATION 11/12/2023 [facility] Care Teams (unrecognized sec tion and content) Team Status: Active Member Role Status Dates Eugenio Obrien MD Primary Care Provider Active Team Status: Inactive Member Role Status Dates Eugenio Obrien MD Primary Care Provider Active Poli Vázquez APRN Emergency Provider Active Team Status: Inactive Member Role Status Dates Eugenio Obrien MD Primary Care Provider Active Brendan Mitchell DO Emergency Provider Active Facilities Specialist Relationship Specialty Start Date End Date Eugenio Obrien MD [address] [place] [address] PCP - General Family Medicine 07/05/20 Team Status: Inactive Member Role Status Dates Eugenio Obrien MD Primary Care Provider Active Shayy Lozada MD Attending Provider Active Goals (unrecognized section and content) Goals may be documented in a n alternate sectionGoals may be documented in an alternate sectionGoals may be documented in an alternate section Source Comments (unrecognize d section and content) In the event this informatio n is protected by the Federal Confidentiality of Alcohol and Drug Abuse Patient Records regulations: The Federal rules restrict any use of the information to criminally investigate or prosecute any alcohol or drug abuse patient.[facility] Rehabilitation[facility] the event this information is protected by the Federal Confidentiality of Alcohol and Drug Abuse Patient Records regulations: The Federal rules restrict any use of the information to criminally investigate or prosecute any alcohol or drug abuse patient.[facility] Reason for Visit (unrecogniz ed section and content) Reason Comments Refill Request Reason Comments Orders FOR RECORDS PERTAINING TO PATIENTS WHO ARE OR HAVE BEEN ENROLLED IN A CHEMICAL DEPENDENCY/SUBSTANCEABUSE PROGRAM, SOME INFORMATION MAY BE OMITTED. This clinical summary was aggregated from multiple sources. Caution should be exercised in using it in the provision of clinical care. This summary normalizes information from multiple sources, and as a consequence, information in this document may materially change the coding, format and clinical context of patient data. In addition, data may be omitted in some cases. CLINICAL DECISIONS SHOULD BE BASED ON THE PRIMARY CLINICAL RECORDS. [facility] [employer] [facility]. provides no warranty or guarantee of the accuracy or completeness of information in this document.
[2023-11-26 14:38] LABS: Bilirubin Urine NEGATIVE (NEGATIVE); Blood Urine NEGATIVE (NEGATIVE); Clarity Urine CLEAR (CLEAR); Color Urine YELLOW (YELLOW); Glucose Urine UA NEGATIVE (NEGATIVE); Ketones Urine NEGATIVE (NEGATIVE); Leukocyte Esterase Urine NEGATIVE (NEGATIVE); Nitrite Urine NEGATIVE (NEGATIVE); Protein Urine NEGATIVE (NEG/TRACE); Specific Gravity Urine >=1.030 (1.005-1.025); Urobilinogen Urine 0.2 EU/dL (0.2-1.0); pH Urine 5.5 (5.0-9.0)
[2023-11-26 14:43] LABS: Mucus Urine NONE SEEN (NONE SEEN); RBC Urine NONE SEEN #/HPF (0-2); Squamous Epithelial Cell Urine MODERATE #/LPF (NONE/RARE); WBC Urine NONE SEEN #/HPF (NONE SEEN)
[2023-11-26 14:44] LABS: Bacteria Urine TRACE #/HPF (NONE SEEN); Cast Seen? NONE SEEN #/LPF (NONE SEEN); Crystals Seen? None Seen #/HPF (None Seen)
== END 2023-11-26 14:23 | disposition home or self-care (01) ==
LOC: LAB 14:23
PROVIDERS: PCP Family Medicine; Visit Provider Family Medicine
DX: N39.0 Urinary tract infection, site not specified (principal)
CPT/HCPCS: 81001; 87086

== ENCOUNTER 2023-11-28 15:54 | Emergency (ER) | payer OTHER, SELFPAY ==
[2023-11-28 15:59] VITALS: BP 124/76; PULSE 119; RESP 20; TEMP 37; O2SAT 97; BMI 30.1
--- OUTSIDE RECORDS SUMMARY | 2023-11-28 16:01 | XMS_ITS | CCD ---
Author Name Unknown Address [address] [place] [address] Organization [facility] Care Team Providers Care Director Of Blood Name Role Phone MD Eugenio Obrien Primary Care Provider [phone] DO Brendan Mitchell Emergency Provider [phone] Eugenio Obrien MD Primary Care Provider [phone] MD Eugenio Obrien Primary Care Provider [phone] RAMAN Vázquez Emergency Provider [phone] SKY .MARYBEL Attending Unavailable SKY ., MARYBEL [...] Unavailable MD Eugenio Obrien Primary Care Provider [phone] MD Shayy Lozada Attending Provider [phone] Eugenio Obrien Primary Care Unavailable Poli Vázquez Admitting Unavailable Poli Vázquez Attending Unavailable Eugenio Obrien Primary Care Unavailable Shayy Lozada Admitting Unavailable Shayy Lozada Attending Unavailable Eugenio Obrien Primary Care Unavailable [place] Admitting Unavailable [place] Attending Unavailable Eugenio Obrien M Primary Care Unavailable Brendan Mitchell Admitting Unavailable Brendan Mitchell Attending Unavailable Rob ACUNA, Andrius Carlin Attending Unavailable Rob ACUNA, Andrius Vzaki Attending Unavailable Rob ACUNA, Andrius Raegan Attending Unavailable Allergies Allergy Classification Reported Allergen(s) Allergy Type Date of Onset Reaction(s) Facility (7 sources) Clarithromycin; Translations: [CLARITHROMYCIN] Drug Allergy 4 [facility] (7 sources) lamoTRIgine; Translations: [LAMOTRIGINE] Drug Allergy 4 [facility] (7 sources) Sulfonamides (Antibiotic); Translations: [SULFA (SULFONAMIDE ANTIBIOTICS)] Allergy to substance 4 [facility] (3 sources) Penicillins; Translations: [PENICILLINS] Propensity to adverse reactions to drug 4 Unknown [facility] (1 source) Clarithromycin Drug Allergy 3 [facility] (2 sources) diphenhydrAMINE Drug Allergy 5 [facility] (1 source) lamoTRIgine Drug Allergy 4 [facility] (2 sources) Penicillins Drug allergy (disorder) 3 [facility] (2 sources) Sulfonamides (Antibiotic) Drug allergy (disorder) 3 [facility] (1 source) Bee pollen; Translations: [BEE POLLEN] Propensity to adverse reactions to drug (disorder) 3 [facility] (1 source) diphenhydrAMINE; Translations: [DIPHENHYDRAMINE HCL] Drug Allergy 3 [facility] Medications Current Medications Medication Drug Class(es) [...] Comment on above: INHALE 2 PUFFS BY [facility] TWICE DAILY *RINSE AFTER USE* cloNIDine hydrochloride [...] 06-02-2023 Episodic Other aftercare (1 source) Other manager terminal (current) drug therapy; Translations: [OTH HALFWAY CURRENT DRUG THERAPY] Onset: 03-29-2023 Episodic Other [...] Antinuclear Abs, IFA Positive Critically abnormal . [facility] Comment on above: Result Comment: Nega tive <1:80 Borderline 1:80 Positive >1:80 Performed By: #### L IPASE, CBC, CMP #### [facility] [address] Homogeneous Pattern 1:80 Normal . [facility] Comment on above: Result Comment: ICAP nomenclature: [id number] Performed By: #### L IPASE, CBC, CMP #### [facility] [address] Note 1 Normal . [facility] Comment on above: Result Comment: For more [...] titers Nucleosomes, Histones Drug-induced SLE Speckled Sm, LANDSCAPING MANAGER, SCL-70, SLE,MCTD,PSS (diffuse form), SS-A/SS-B Sjogrens Nucleolar SCL-70, PM-1/SCL High titers Scleroderma, PM/DM Centromere Centromere PSS (limited form) w/Crest syndrome variable Nuclear Dot Sp100,[id number] Primary Biliary Cirrhosis Nuclear GP210, Primary Biliary Cirrhosis Membrane joleen A,B,C Performed at: - [facility] [id number] Line Inspector: Eric Vasquez PhD, Phone: [phone] PERFORMED BY: [place] [address] PATHOLOGIST DIRECTOR [employer]PORATE SALES HELENA BEVERLY M.D. Performed By: #### L IPASE, CBC, CMP #### [address] Alanine aminotransferase [En zymatic activity/volume] in Serum or PlasmaOrdered By: Shayy Lozada on 07-21-2023 ALT [Catalytic activity/Vol] 23 U/L 7- [facility] Albumin [Mass/volume] in Ser um or Plasma by Bromocresol green (BCG) dye binding methoOrdered By: Shayy Lozada on 07-21-2023 Albumin BCG dye [Mass/Vol] 4.3 g/dL 3.5-5.7 [facility] Alkaline phosphatase [Enzyma tic activity/volume] in Serum or PlasmaOrdered By: Shayy Lozada on 07-21-2023 ALP [Catalytic activity/Vol] 57 U/L 34-104 [facility] Aspartate aminotransferase [ Enzymatic activity/volume] in Serum or PlasmaOrdered By: Shayy Lozada on 07-21-2023 AST [Catalytic activity/Vol] 17 U/L 13-39 [facility] Basophils Auto (Bld) [#/Vol] Ordered By: Shayy Lozada on 07-21-2023 Basophils (Bld) [#/Vol] 0.1 10*3/uL 0.0-0.2 [facility] Basophils/100 WBC Auto (Bld) Ordered By: Shayy Lozada on 07-21-2023 Basophils/100 WBC (Bld) 1.2 % . [facility] Bilirubin.total [Mass/volume ] in Serum or PlasmaOrdered By: Shayy Lozada on 07-21-2023 Bilirubin [Mass/Vol] 0.5 mg/dL 0.3-1.0 [facility] Calcium [Mass/volume] in Ser um or PlasmaOrdered By: Shayy Lozada on 07-21-2023 Calcium [Mass/Vol] 9.4 mg/dL 8.6-10.3 [facility] Carbon dioxide, total [Moles /volume] in Serum or PlasmaOrdered By: Shayy Lozada on 07-21-2023 CO2 [Moles/Vol] 29.8 mmol/L 21.0-31.0 [facility] Chloride [Moles/volume] in [place] or PlasmaOrdered By: Shayy Lozada on 07-21-2023 Chloride [Moles/Vol] 108 mmol/L 98-107 [facility] Complete Blood Count Auto Di ffon 07-21-2023 Basophils (Bld) [#/Vol] 0.1 10*3/uL Normal 0.0-0.2 [facility] Comment on above: Performed By: #### L IPASE, CBC, CMP #### [facility] [place] [address] Basophils/100 WBC (Bld) 1.2 % Normal . [facility] Comment on above: Performed By: #### L IPASE, CBC, CMP #### [address] Eosinophils (Bld) [#/Vol] 0.0 10*3/uL Normal 0.0-0.45 [facility] Comment on above: Performed By: #### L IPASE, CBC, CMP #### [address] Eosinophils/100 WBC (Bld) 0.1 % Normal . [facility] Comment on above: Performed By: #### L IPASE, CBC, CMP #### [address] Erythrocyte distribution width (RBC) [Ratio] 13.2 % Normal 11.9-15.3 [facility] Comment on above: Performed By: #### L IPASE, CBC, CMP #### [address] Hematocrit (Bld) [Volume fraction] 36.6 % Normal 34.0-46.4 [facility] Comment on above: Performed By: #### L IPASE, CBC, CMP #### [address] Hemoglobin (Bld) [Mass/Vol] 12.5 g/dL Normal 11.8-15.4 [facility] Comment on above: Performed By: #### L IPASE, CBC, CMP #### [place] [address] [place] Lymphocytes (Bld) [#/Vol] 1.8 10*3/uL Normal 1.00-4.8 [facility] Comment on above: Performed By: #### L IPASE, CBC, CMP #### [address] [address] [place] Lymphocytes/100 WBC (Bld) 37.2 % Normal . [facility] Comment on above: Performed By: #### L IPASE, CBC, CMP #### [facility] [place] [address] MCH (RBC) [Entitic mass] 29.7 pg Normal 24.7-34.3 [facility] Comment on above: Performed By: #### L IPASE, CBC, CMP #### [facility] [place] [address] MCV (RBC) [Entitic vol] 86.7 fL Normal 80-100 [facility] Comment on above: Performed By: #### L IPASE, CBC, CMP #### [address] Mean Corpuscular HGB Conc 34.2 g/dL Normal 32.0-35.0 [facility] Comment on above: Performed By: #### L IPASE, CBC, CMP #### [address] Monocytes (Bld) [#/Vol] 0.4 10*3/uL Normal 0.0-0.8 [facility] Comment on above: Performed By: #### L IPASE, CBC, CMP #### [address] Monocytes/100 WBC (Bld) 8.9 % Normal . [facility] Comment on above: Performed By: #### L IPASE, CBC, CMP #### [place] [address] [place] Neutrophils (Bld) [#/Vol] 2.5 10*3/uL Normal 1.8-7.7 [facility] Comment on above: Performed By: #### L IPASE, CBC, CMP #### [address] Neutrophils/100 WBC (Bld) 52.6 % Normal . [facility] Comment on above: Performed By: #### L IPASE, CBC, CMP #### [address] NRBC% 0.0 /100{WBC} Normal 0-0.5 [facility] Comment on above: Performed By: #### L IPASE, CBC, CMP #### [address] Platelet mean volume (Bld) [Entitic vol] 7.5 fL Normal 6.3-10.7 [facility] Comment on above: Performed By: #### L IPASE, CBC, CMP #### [address] Platelets (Bld) [#/Vol] 259 10*3/uL Normal 150-450 [facility] Comment on above: Performed By: #### L IPASE, CBC, CMP #### [address] RBC (Bld) [#/Vol] 4.22 10*6/uL Normal 3.60-5.00 [facility] Comment on above: Performed By: #### L IPASE, CBC, CMP #### [address] WBC (Bld) [#/Vol] 4.8 10*3/uL Normal 3.8-11.6 [facility] Comment on above: Performed By: #### L IPASE, CBC, CMP #### [address] Comprehensive Metabolic Pane sonny 07-21-2023 Albumin [Mass/Vol] 4.3 g/dL Normal 3.5-5.7 [facility] Comment on above: Performed By: #### C MP, CBC, T4F, ESR, TSH3 #### [address] #### TESTF, DHEAS, ZAID #### [facility] , Albumin/Globulin [Mass ratio] 1.9 {ratio} Normal [facility] Comment on above: Performed By: #### C MP, CBC, T4F, ESR, TSH3 #### [address] #### TESTF, DHEAS, ZAID #### [facility] , ALP [Catalytic activity/Vol] 57 U/L Normal 34-104 [facility] Comment on above: Performed By: #### C MP, CBC, T4F, ESR, TSH3 #### [facility] [address] [place] [address] [place] #### TESTF, DHEAS, ZAID #### [facility] , ALT [Catalytic activity/Vol] 23 U/L Normal 7-52 [facility] Comment on above: Performed By: #### C MP, CBC, T4F, ESR, TSH3 #### [address] #### TESTF, DHEAS, ZAID #### [facility] , Anion gap [Moles/Vol] 9.6 mmol/L Normal 6.0-15.0 [facility] Comment on above: Performed By: #### C MP, CBC, T4F, ESR, TSH3 #### [facility] [address] [place] [address] #### TESTF, DHEAS, ZAID #### [facility] , AST [Catalytic activity/Vol] 17 U/L Normal 13-39 [facility] Comment on above: Performed By: #### C MP, CBC, T4F, ESR, TSH3 #### [place] [address] [place] #### TESTF, DHEAS, ZAID #### [facility] , Bilirubin [Mass/Vol] 0.5 mg/dL Normal 0.3-1.0 [facility] Comment on above: Performed By: #### C MP, CBC, T4F, ESR, TSH3 #### [place] [address] [place] #### TESTF, DHEAS, ZAID #### [facility] , Calcium [Mass/Vol] 9.4 mg/dL Normal 8.6-10.3 [facility] Comment on above: Performed By: #### C MP, CBC, T4F, ESR, TSH3 #### [facility] [address] [place] [address] #### TESTF, DHEAS, ZAID #### [facility] , Chloride [Moles/Vol] 108 mmol/L High 98-107 [facility] Comment on above: Performed By: #### C MP, CBC, T4F, ESR, TSH3 #### [place] [address] [place] #### TESTF, DHEAS, ZAID #### [facility] , CO2 [Moles/Vol] 29.8 mmol/L Normal 21.0-31.0 [facility] Comment on above: Performed By: #### C MP, CBC, T4F, ESR, TSH3 #### [place] [address] [place] #### TESTF, DHEAS, ZAID #### [facility] , Creatinine [Mass/Vol] 0.76 mg/dL Normal 0.60-1.20 [facility] Comment on above: Performed By: #### C MP, CBC, T4F, ESR, TSH3 #### [facility] [address] [place] [address] [place] #### TESTF, DHEAS, ZAID #### [facility] , GFR/1.73 sq M.predicted MDRD (S/P/Bld) [Vol rate/Area] mL/min/{1.73_m2} Normal [facility] Comment on above: Performed By: #### C MP, CBC, T4F, ESR, TSH3 #### [place] [address] [place] #### TESTF, DHEAS, ZAID #### [facility] , Globulin (S) [Mass/Vol] 2.3 g/dL Normal [facility] Comment on above: Performed By: #### C MP, CBC, T4F, ESR, TSH3 #### [place] [address] [place] #### TESTF, DHEAS, ZAID #### [facility] , Glucose [Mass/Vol] 101 mg/dL High 70-100 [facility] Comment on above: Result Comment: [facility] Glucose Reference Range is dependent on time and content of last meal. Glucose of more than 200 mg/dL in a nonstressed, ambulatory subject supports the diagnosis of Diabetes Mellitus. ADA recommended reference range Performed By: #### C MP, CBC, T4F, ESR, TSH3 #### [address] #### TESTF, DHEAS, ZAID #### [facility] , Potassium [Moles/Vol] 4.4 mmol/L Normal 3.5-5.1 [facility] Comment on above: Performed By: #### C MP, CBC, T4F, ESR, TSH3 #### [place] [address] [place] #### TESTF, DHEAS, ZAID #### [facility] , Protein [Mass/Vol] 6.6 g/dL Normal 6.4-8.9 [facility] Comment on above: Performed By: #### C MP, CBC, T4F, ESR, TSH3 #### [place] [address] [place] #### TESTF, DHEAS, ZAID #### [facility] , Sodium [Moles/Vol] 143 mmol/L Normal 136-145 [facility] Comment on above: Performed By: #### C MP, CBC, T4F, ESR, TSH3 #### [place] [address] [place] #### TESTF, DHEAS, ZAID #### [facility] , Urea nitrogen [Mass/Vol] 12 mg/dL Normal 7-25 [facility] Comment on above: Performed By: #### C MP, CBC, T4F, ESR, TSH3 #### [facility] [address] [place] [address] #### TESTF, DHEAS, ZAID #### [facility] , Creatinine [Mass/volume] in Serum or PlasmaOrdered By: Shayy Lozada on 07-21-2023 Creatinine [Mass/Vol] 0.76 mg/dL 0.60-1.20 [facility] Dehydroepiandrosterone Sulfa meeta 07-21-2023 Dehydroepiandrosterone Sulfate 135.0 ug/dL Normal 41.2-243.7 [facility] Comment on above: Result Comment: Perf ormed at: [facility] [address] [id number] Line Inspector: Eric Vasquez PhD, Phone: [phone] Performed By: #### L IPASE, CBC, CMP #### [address] Eosinophils Auto (Bld) [#/Vo l]Ordered By: Shayy Lozada on 07-21-2023 Eosinophils (Bld) [#/Vol] 0.0 10*3/uL 0.0-0.45 [facility] Eosinophils/100 WBC Auto (Bl d)Ordered By: Shayy Lozada on 07-21-2023 Eosinophils/100 WBC (Bld) 0.1 % . [facility] Erythrocyte Sedimentation Ra meeta 07-21-2023 ESR (Bld) [Velocity] 13 mm/h Normal 0-19 [facility] Comment on above: Result Comment: PERF ORMED BY: [place] [address] PATHOLOGIST DIRECTOR [employer] SAL[employer] HELENA BEVERLY M.D. Performed By: #### L IPASE, CBC, CMP #### [address] Erythrocyte distribution wid th Auto (RBC) [Ratio]Ordered By: Shayy Lozada on 07-21-2023 Erythrocyte distribution width (RBC) [Ratio] 13.2 % 11.9-15.3 [facility] Erythrocyte sedimentation ra te by Photometric methodOrdered By: Shayy Lozada on 07-21-2023 ESR Photometric method (Bld) [Velocity] 13 mm/hr 0-19 [facility] Free T4 (Free Thyroxine)on 0 07-21-2023 Free T4 [Mass/Vol] 0.81 ng/dL Normal 0.61-1.12 [facility] Comment on above: Performed By: #### C MP, CBC, T4F, ESR, TSH3 #### [facility] [address] #### TESTF, DHEAS, ZAID #### [facility] , Globulin Calc (S) [Mass/Vol] Ordered By: Shayy Lozada on 07-21-2023 Globulin (S) [Mass/Vol] 2.3 g/dL [facility] Glucose [Mass/volume] in Ser um or PlasmaOrdered By: Shayy Lozada on 07-21-2023 Glucose [Mass/Vol] 101 mg/dL 70-100 [facility] Comment on above: ADA recommended refe rence rangeRandom Glucose Reference Range is dependent on time and content of last meal. Glucose of more than 200 mg/dL in a nonstressed, ambulatory subject supports the diagnosis of Diabetes Mellitus. Hematocrit Auto (Bld) [Volum e fraction]Ordered By: Shayy Lozada on 07-21-2023 Hematocrit (Bld) [Volume fraction] 36.6 % 34.0-46.4 [facility] Hemoglobin [Mass/volume] in BloodOrdered By: Shayy Lozada on 07-21-2023 Hemoglobin (Bld) [Mass/Vol] 12.5 g/dL 11.8-15.4 [facility] Leukocytes [#/volume] correc ji for nucleated erythrocytes in Blood by Automated counOrdered By: Shayy Lozada on 07-21-2023 WBC corrected for nucl RBC Auto (Bld) [#/Vol] 4.8 10*3/uL 3.8-11.6 [facility] Lymphocytes Auto (Bld) [#/Vo l]Ordered By: Shayy Lozada on 07-21-2023 Lymphocytes (Bld) [#/Vol] 1.8 10*3/uL 1.00-4.8 [facility] Lymphocytes/100 WBC Auto (Bl d)Ordered By: Shayy Lozada on 07-21-2023 Lymphocytes/100 WBC (Bld) 37.2 % . [facility] MCH Auto (RBC) [Entitic mass ]Ordered By: Shayy Lozada on 07-21-2023 MCH (RBC) [Entitic mass] 29.7 pg 24.7-34.3 [facility] MCHC Auto (RBC) [Mass/Vol]Or dered By: Shayy Lozada on 07-21-2023 MCHC (RBC) [Mass/Vol] 34.2 g/dL 32.0-35.[address] [facility] MCV Auto (RBC) [Entitic vol] Ordered By: Shayy Lozada on 07-21-2023 MCV (RBC) [Entitic vol] 86.7 fL 80-100 [facility] Monocytes Auto (Bld) [#/Vol] Ordered By: Shayy Lozada on 07-21-2023 Monocytes (Bld) [#/Vol] 0.4 10*3/uL 0.0-0.8 [facility] Monocytes/100 WBC Auto (Bld) Ordered By: Shayy Lozada on 07-21-2023 Monocytes/100 WBC (Bld) 8.9 % . [facility] Neutrophils Auto (Bld) [#/Vo l]Ordered By: Shayy Lozada on 07-21-2023 Neutrophils (Bld) [#/Vol] 2.5 10*3/uL 1.8-7.7 [facility] Neutrophils/100 WBC Auto (Bl d)Ordered By: Shayy Lozada on 07-21-2023 Neutrophils/100 WBC (Bld) 52.6 % . [facility] No Panel InformationOrdered By: Shayy Lozada on 07-21-2023 Estimated GFR (CKD-EPI) > 60.0 mL/Min [facility] Creatinine Clearance (Chem N/A [facility] Nucleated erythrocytes [Pres ence] in Blood by Automated countOrdered By: Shayy Lozada on 07-21-2023 Nucleated RBC Auto Ql (Bld) 0.0 /100{WBC} 0-0.5 [facility] Platelet mean volume Auto (B ld) [Entitic vol]Ordered By: Shayy Lozada on 07-21-2023 Platelet mean volume (Bld) [Entitic vol] 7.5 fL 6.3-10.7 [facility] Platelets Auto (Bld) [#/Vol] Ordered By: Shayy Lozada on 07-21-2023 Platelets (Bld) [#/Vol] 259 10*3/uL 150-450 [facility] Potassium [Moles/volume] in Serum or PlasmaOrdered By: Shayy Lozada on 07-21-2023 Potassium [Moles/Vol] 4.4 mmol/L 3.5-5.1 [facility] Protein [Mass/volume] in Ser um or PlasmaOrdered By: Shayy Lozada on 07-21-2023 Protein [Mass/Vol] 6.6 g/dL 6.4-8.9 [facility] RBC Auto (Bld) [#/Vol]Ordere d By: Shayy Lozada on 07-21-2023 RBC (Bld) [#/Vol] 4.22 10*6/uL 3.60-5.00 [facility] Serum or plasma albumin/glob ulin mass ratioOrdered By: Shyay Lozada on 07-21-2023 Albumin/Globulin [Mass ratio] 1.9 {ratio} [facility] Serum or plasma anion gap de terminationOrdered By: Shayy Lozada on 07-21-2023 Anion gap [Moles/Vol] 9.6 mmol/L 6.0-15.0 [facility] Sodium [Moles/volume] in Ser um or PlasmaOrdered By: Shayy Lozada on 07-21-2023 Sodium [Moles/Vol] 143 mmol/L 136-145 [facility] Testosterone,Freeon 07-21-20 Testosterone,Free 1.0 pg/mL Normal 0.0-4.2 [facility] Comment on above: Result Comment: Perf ormed at: [facility] - [facility] [address] [id number] Line Inspector: Elizabeth Quezada MD, Phone: [phone] Performed By: #### L IPASE, CBC, CMP #### [facility] [address] [place] [address] Thyroid Stimulating Hormoneo n 07-21-2023 TSH Qn 0.39 m[IU]/L Low 0.45-5.33 [facility] Comment on above: Result Comment: PERF ORMED BY: [place] [address] PATHOLOGIST DIRECTOR [employer] HELENA BEVERLY M.D. Performed By: #### C MP, CBC, T4F, ESR, TSH3 #### [facility] [address] [place] [address] #### TESTF, DHEAS, ZAID #### [facility] , Thyrotropin [Units/volume] i n Serum or PlasmaOrdered By: Shayy Lozada on 07-21-2023 TSH Qn 0.39 m[IU]/L 0.45-5.33 [facility] Thyroxine (T4) free [Mass/vo lume] in Serum or PlasmaOrdered By: Shayy Lozada on 07-21-2023 Free T4 [Mass/Vol] 0.81 ng/dL 0.61-1.12 [facility] Urea nitrogen [Mass/volume] in Serum or PlasmaOrdered By: Shayy Lozada on 07-21-2023 Urea nitrogen [Mass/Vol] 12 mg/dL 06-22 [facility] WBC Auto (Bld) [#/Vol]Ordere d By: Shayy Lozada on 07-21-2023 WBC (Bld) [#/Vol] 4.8 10*3/uL 3.8-11.6 [facility] Office Visiton 06-02-2023 Follow-up visit [id number] Zakiya Cuello 1975 F Date Provider Department Center 06/02/2023 VICKY JIMÉNEZ [facility]TH[facility]TH[facility] Family History Problem Relation Age of Onset Diabetes Mother Diabetes Father Family Status - Relation Status Age at Mother Alive Father Alive Level of Service:[address] [place] OFFICE/OUTPATIENT NEW LOW MDM 30-44 MINUTES Reason for Visit and Comments: Pain [136] Normal [facility] Bilirubin Test strip Ql (U)O rdered By: Poli Vázquez on 03-31-2023 Bilirubin Ql (U) Negative Negative [facility] Color Auto (U)Ordered By: Frederick Vázquez on 03-31-2023 Color (U) Yellow Yellow [facility] Ketones Auto test strip (U) [Mass/Vol]Ordered By: Poli Vázquez on 03-31-2023 Ketones (U) [Mass/Vol] Negative Negative [facility] Nitrite Test strip Ql (U)Ord ered By: Poli Vázquez on 03-31-2023 Nitrite Ql (U) Negative Negative [facility] Protein Auto test strip (U) [Mass/Vol]Ordered By: Poli Vázquez on 03-31-2023 Protein (U) [Mass/Vol] Negative Negative [facility] Specific gravity Auto test s trip (U) [Rel density]Ordered By: Poli Vázquez on 03-31-2023 Specific gravity (U) [Rel density] 1.004 1.001-1.030 [facility] Urinalysison 03-31-2023 Appearance (U) Clear Normal Clear [facility] Comment on above: Order Comment: Name Collection Type:: Clean-Voided Midstream Performed By: #### L IPASE, CBC, CMP #### [facility] [address] [place] [id number] [place] Bilirubin,Urine Negative Normal Negative [facility] Comment on above: Order Comment: Name Collection Type:: Clean-Voided Midstream Performed By: #### L IPASE, CBC, CMP #### [facility] [address] [place] [id number] [place] Color (U) Yellow Normal [facility] Comment on above: Order Comment: Name Collection Type:: Clean-Voided Midstream Performed By: #### L IPASE, CBC, CMP #### [facility] [address] [place] [id number] [place] Glucose Ql (U) Normal Normal Normal [facility] Comment on above: Order Comment: Name Collection Type:: Clean-Voided Midstream Performed By: #### L IPASE, CBC, CMP #### [address] Ketones Ql (U) Negative Normal Negative [facility] Comment on above: Order Comment: Name Collection Type:: Clean-Voided Midstream Performed By: #### L IPASE, CBC, CMP #### [address] Leukocyte esterase Test strip Ql (U) Negative Normal Negative [facility] Comment on above: Order Comment: Name Collection Type:: Clean-Voided Midstream Performed By: #### L IPASE, CBC, CMP #### [address] Nitrite,Urine Negative Normal Negative [facility] Comment on above: Order Comment: Name Collection Type:: Clean-Voided Midstream Performed By: #### L IPASE, CBC, CMP #### [address] Occult Blood,Urine Negative Normal Negative [facility] Comment on above: Order Comment: Name Collection Type:: Clean-Voided Midstream Result Comment: PERF ORMED BY: [place] [address] PATHOLOGIST DIRECTOR [employer] SAL[employer] HELENA BEVERLY M.D. Performed By: #### L IPASE, CBC, CMP #### [address] pH (U) 6.5 [pH] Normal 5.0-9.0 [facility] Comment on above: Order Comment: Name Collection Type:: Clean-Voided Midstream Performed By: #### L IPASE, CBC, CMP #### [address] Protein,Urine Negative Normal Negative [facility] Comment on above: Order Comment: Name Collection Type:: Clean-Voided Midstream Performed By: #### L IPASE, CBC, CMP #### [address] Specificy [place],Urine 1.004 Normal 1.001-1.030 [facility] Comment on above: Order Comment: Name Collection Type:: Clean-Voided Midstream Performed By: #### L IPASE, CBC, CMP #### [facility] [address] Urobilinogen,Urine Normal Normal Normal [facility] Comment on above: Order Comment: Name Collection Type:: Clean-Voided Midstream Performed By: #### L IPASE, CBC, CMP #### [facility] [address] Urine clarity by refractomet ry automatedOrdered By: Poli Vázquez on 03-31-2023 Clarity Refractometry automated (U) Clear Clear [facility] Urine glucose measurement by automated test strip (mass/volume)Ordered By: Poli Vázquez on 03-31-2023 Glucose Auto test strip (U) [Mass/Vol] Normal mg/dL Normal [facility] Urine hemoglobin detection b y automated test stripOrdered By: Poli Vázquez on 03-31-2023 Hemoglobin Auto test strip Ql (U) Negative Negative [facility] Urine leukocyte esterase det ection by automated test stripOrdered By: Poli Vázquez on 03-31-2023 Leukocyte esterase Auto test strip Ql (U) Negative Negative [facility] Urobilinogen Auto test strip (U) [Mass/Vol]Ordered By: Poli Vázquez on 03-31-2023 Urobilinogen (U) [Mass/Vol] Normal mg/dL Normal [facility] pH Auto test strip (U)Ordere d By: Poli Vázquez on 03-31-2023 pH (U) 6.5 [pH] 5.0-9.[address] [facility] [address] ABD/PELVIS WO CONon 03-25 CT ABD/PELVIS [...] stone or hydronephrosis. Electronically authenticated by: ADEN MASTEROSN Date: 2023-03-25 14:39 Normal [facility] ER URINE PROFILEon 3 Bilirubin Ql (U) Negative Normal NEGATIVE [facility] Comment on above: Performed By: #### E BVPROF #### [facility] [address] [place] [address] Dr. Nahomi Arana Clarity (U) CLEAR Normal CLEAR [facility] Comment on above: Performed By: #### E BVPROF #### [facility] [address] [place] [address] Dr. Nahomi Arana Color (U) LT. YELLOW Normal YELLOW [facility] Comment on above: Performed By: #### E BVPROF #### [facility] [address] [place] [address] Dr. Nahomi Arana ERUAHD A micrscopic examination will be performed if indicated. Normal [facility] Comment on above: Performed By: #### E BVPROF #### [facility] [address] [place] [address] Dr. Nahomi Arana Glucose Ql (U) Negative Normal NEGATIVE [facility] Comment on above: Performed By: #### E BVPROF #### [facility] [address] [place] [address] Dr. Nahomi Arana Hemoglobin Ql (U) TRACE-INTACT Abnormal NEGATIVE [facility] Comment on above: Performed By: #### E BVPROF #### [facility] [address] [place] [address] Dr. Nahomi Arana Ketones Ql (U) Negative Normal NEGATIVE [facility] Comment on above: Performed By: #### E BVPROF #### [facility] [address] [place] [address] Dr. Nahomi Arana LEUKOCYTES Negative Normal NEGATIVE [facility] Comment on above: Performed By: #### E BVPROF #### [facility] [address] [place] [address] Dr. Nahomi Arana Nitrite Ql (U) Negative Normal NEGATIVE [facility] Comment on above: Performed By: #### E BVPROF #### [facility] [address] [place] [address] Dr. Nahomi Arana pH (U) 5.0 [pH] Normal 5-9 [facility] Comment on above: Performed By: #### E BVPROF #### [facility] [address] [place] [address] Dr. Nahomi Arana SPEC GRAVITY 1.030 Abnormal 1.005-<=1.02 5 [facility] Comment on above: Performed By: #### E BVPROF #### [facility] [address] [place] [address] Dr. Nahomi Arana UA PROTEIN Negative Normal NEGATIVE/ TRACE [facility] Comment on above: Performed By: #### E BVPROF #### [facility] [address] [place] [address] Dr. Nahomi Arana UR MICRO IND INDICATED Normal [facility] Comment on above: Performed By: #### E BVPROF #### [facility] [address] [place] [address] Dr. Nahomi Arana Urobilinogen Qn (U) 0.2 {Jesus'U}/dL Normal 0.2 - 1. 0 [facility] Comment on above: Performed By: #### E BVPROF #### [facility] [address] [place] [address] Dr. Nahomi Arana URINE MICROSCOPIC ONLYon BACTERIA NONE SEEN Normal NONE SEEN [facility] Comment on above: Performed By: #### E BVPROF #### [facility] [address] [place] [address] Dr. Nahomi Arana Bacteria identified Cx Nom (U) NOT INDICATED Normal [facility] Comment on above: Performed By: #### E BVPROF #### [facility] [address] [place] [address] Dr. Nahomi Arana CAST NONE SEEN Normal NONE SEEN [facility] Comment on above: Performed By: #### E BVPROF #### [facility] [address] [place] [address] Dr. Nahomi Arana Crystals LM Nom (Urine sed) NONE SEEN Normal NONE SEEN [facility] Comment on above: Performed By: #### E BVPROF #### [facility] [address] [place] [address] Dr. Nahomi Arana Epithelial cells LM Ql (Urine sed) FEW Abnormal NONE SEEN /RARE [facility] Comment on above: Performed By: #### E BVPROF #### [facility] [address] [place] [address] Dr. Nahomi Arana MUCOUS NONE SEEN Normal NONE SEEN [facility] Comment on above: Performed By: #### E BVPROF #### [facility] [address] [place] [address] Dr. Nahomi Arana RBC 0-2 Normal 0-2 [facility] Comment on above: Performed By: #### E BVPROF #### [facility] [address] [place] [address] Dr. Nahomi Arana WBC NONE SEEN Normal NONE SEEN [facility] Comment on above: Performed By: #### E BVPROF #### [facility] [address] [address] [address] Nahomi Arana MM screening mammo BI w/CADo n 11-13-2022 MM screening mammo BI w/CAD [facility] [place] [address] [place], [place] [id number] Mammography Report Signed Patient: Zakiya Cuello MR#: [id number] : 1975 Acct:[id number] Age/Sex: 46 / F ADM Date: 11/06/22 Loc: [place] Room: Type: [facility] Attending Dr: Lake Jensen MD Copies to: [...] Licha Do M.D.11/13/2022 8:29 AM Dictation Location: [facility] Transcribed By: [facility] 11/13/22828 Dictated By: Licha Do MD 11/13/22825 Signed By: 11/13/22828 [facility] 09-11-2022 Cortisol 3.7 ug/dL Normal [facility] Comment on above: Result Comment: Sonido isol AM 6.2 - 19.4 Cortisol PM 2.3 - 11.9 Performed By: #### E BVPROF #### [facility] [address] [address] [address] Nahomi Arana BARRY-ZHANG VIRUS (EBV) AB PROFILEon 09-11-2022 EBV Ab VCA, IgG 129.0 U/mL Critically high 0.0-17.9 [facility] Comment on above: Result Comment: Nega tive <18.0 Equivocal 18.0 - 21.9 Positive >21.9 Performed By: #### E BVPROF #### [facility] [address] [place] [address] Dr. Nahomi Arana EBV Ab VCA, IgM <36.0 Normal 0.0-35.9 [facility] Comment on above: Result Comment: Nega tive <36.0 Equivocal 36.0 - 43.9 Positive >43.9 Performed By: #### E BVPROF #### [facility] [address] [address] [address] Nahomi Arana EBV Nuclear Antigen Ab, IgG 228.0 U/mL Critically high 0.0-17.9 [facility] Comment on above: Result Comment: Nega tive <18.0 Equivocal 18.0 - 21.9 Positive >21.9 Performed By: #### E BVPROF #### [facility] [address] [place] [address] Dr. Nahomi Arana Interpretation: Comment Normal [facility] Comment on above: Result Comment: EBV Interpretation [...] EBNA. Performed By: #### E BVPROF #### [facility] [address] [address] [address] Nahomi Arana FERRITINon 09-09-2022 Ferritin [Mass/Vol] 79.0 ng/mL Normal 6.2-137.0 [facility] Comment on above: Performed By: #### E BVPROF #### [facility] [address] [address] [address] Nahomi Arana VITAMIN B12on 09-09-2022 Cobalamin (Vitamin B12) [Mass/Vol] 612.0 pg/mL Normal 193.0-986.0 [facility] Comment on above: Performed By: #### E BVPROF #### [facility] [address] [address] [address] Nahomi Arana Albumin [Mass/volume] in Ser um or PlasmaOrdered By: Brendan Mitchell on 09-05-2022 Albumin [Mass/Vol] 3.5 g/dL 3.2-5.5 [facility] Basophils Auto (Bld) [#/Vol] Ordered By: Brendan Mitchell on 09-05-2022 Basophils (Bld) [#/Vol] 0.1 10*3/uL 0.0-0.2 [facility] Basophils/100 WBC Auto (Bld) Ordered By: Brendan Mitchell on 09-05-2022 Basophils/100 WBC (Bld) 1.0 % . [facility] Bilirubin Test strip Ql (U)O rdered By: Brendan Mitchell on 09-05-2022 Bilirubin Ql (U) Negative Negative [facility] Blood hemoglobin measurement (mass/volume)Ordered By: Brendan Mitchell on 09-05-2022 Hemoglobin (Bld) [Mass/Vol] 12.2 g/dL 11.8-15.4 [facility] Blood leukocytes automated c ount (number/volume)Ordered By: Brendan Mitchell on 09-05-2022 WBC (Bld) [#/Vol] 8.1 10*3/uL 4.5-11.0 [facility] CT abdomen pelvis w conon CT abdomen pelvis w [address] [place] [address] CT Scan Report Signed Patient: Zakiya Cuello MR#: [id number] : 1975 Acct:[id number] Age/Sex: 46 / F ADM Date: 09/05/22 Loc: ER Room: Type: [facility] ER Attending Dr: Copies to: Brendan Mitchell [...] Garrison Gill M.D.09/05/2022 7:03 PM Dictation Location: [place] [address] Transcribed By: [facility] 09/05/221902 Dictated By: Garrison Gill DO 09/05/221900 Signed By: 09/05/221902 Normal [facility] Color Auto (U)Ordered By: Fish Mitchell on 09-05-2022 Color (U) Dark yellow Yellow [facility] Complete Blood Count Auto Di ffon 09-05-2022 Basophils (Bld) [#/Vol] 0.1 10*3/uL Normal 0.0-0.2 [facility] Comment on above: Result Comment: PERF ORMED BY: [place] [id number] PATHOLOGIST DIRECTOR [employer] HELENA BEVERLY M.D. Performed By: #### L IPASE, CBC, CMP #### [facility] [address] [place] [address] Basophils/100 WBC (Bld) 1.0 % Normal . [facility] Comment on above: Performed By: #### L IPASE, CBC, CMP #### [place] [address] [place] Eosinophils (Bld) [#/Vol] 0.2 10*3/uL Normal 0.0-0.45 [facility] Comment on above: Performed By: #### L IPASE, CBC, CMP #### [place] [address] [place] Eosinophils/100 WBC (Bld) 2.9 % Normal . [facility] Comment on above: Performed By: #### L IPASE, CBC, CMP #### [address] Erythrocyte distribution width (RBC) [Ratio] 13.7 % Normal 11.9-15.3 [facility] Comment on above: Performed By: #### L IPASE, CBC, CMP #### [address] Hematocrit (Bld) [Volume fraction] 36.0 % Normal 34.0-46.4 [facility] Comment on above: Performed By: #### L IPASE, CBC, CMP #### [facility] [address] [place] [address] [place] Hemoglobin (Bld) [Mass/Vol] 12.2 g/dL Normal 11.8-15.4 [facility] Comment on above: Performed By: #### L IPASE, CBC, CMP #### [facility] [address] [place] [address] [place] Lymphocytes (Bld) [#/Vol] 2.6 10*3/uL Normal 1.00-4.8 [facility] Comment on above: Performed By: #### L IPASE, CBC, CMP #### [address] Lymphocytes/100 WBC (Bld) 32.4 % Normal . [facility] Comment on above: Performed By: #### L IPASE, CBC, CMP #### [address] MCH (RBC) [Entitic mass] 29.9 pg Normal 24.7-34.3 [facility] Comment on above: Performed By: #### L IPASE, CBC, CMP #### [address] MCV (RBC) [Entitic vol] 88.6 fL Normal 80-100 [facility] Comment on above: Performed By: #### L IPASE, CBC, CMP #### [address] Mean Corpuscular HGB Conc 33.8 g/dL Normal 32.0-35.0 [facility] Comment on above: Performed By: #### L IPASE, CBC, CMP #### [place] [address] [place] Monocytes (Bld) [#/Vol] 0.6 10*3/uL Normal 0.0-0.8 [facility] Comment on above: Performed By: #### L IPASE, CBC, CMP #### [place] [address] [place] Monocytes/100 WBC (Bld) 7.6 % Normal . [facility] Comment on above: Performed By: #### L IPASE, CBC, CMP #### [place] [address] [place] Neutrophils (Bld) [#/Vol] 4.5 10*3/uL Normal 1.8-7.7 [facility] Comment on above: Performed By: #### L IPASE, CBC, CMP #### [place] [address] [place] Neutrophils/100 WBC (Bld) 56.1 % Normal . [facility] Comment on above: Performed By: #### L IPASE, CBC, CMP #### [address] Nucleated RBC/100 WBC (Bld) [Ratio] 0.0 % Normal 0-0.5 [facility] Comment on above: Performed By: #### L IPASE, CBC, CMP #### [address] Platelet mean volume (Bld) [Entitic vol] 7.4 fL Normal 6.3-10.7 [facility] Comment on above: Performed By: #### L IPASE, CBC, CMP #### [address] Platelets (Bld) [#/Vol] 319 10*3/uL Normal 150-450 [facility] Comment on above: Performed By: #### L IPASE, CBC, CMP #### [address] RBC (Bld) [#/Vol] 4.07 10*6/uL Normal 3.60-5.00 [facility] Comment on above: Performed By: #### L IPASE, CBC, CMP #### [address] WBC (Bld) [#/Vol] 8.1 10*3/uL Normal 4.5-11.0 [facility] Comment on above: Performed By: #### L IPASE, CBC, CMP #### [address] Comprehensive Metabolic Pane sonny 09-05-2022 Albumin [Mass/Vol] 3.5 g/dL Normal 3.2-5.5 [facility] Comment on above: Performed By: #### L IPASE, CBC, CMP #### [address] Albumin/Globulin [Mass ratio] 1.3 {ratio} Normal [facility] Comment on above: Performed By: #### L IPASE, CBC, CMP #### [facility] [address] [id number] [place] ALP [Catalytic activity/Vol] 46 U/L Normal 32-92 [facility] Comment on above: Performed By: #### L IPASE, CBC, CMP #### [facility] [address] [place] [address] [place] ALT [Catalytic activity/Vol] 22 U/L Normal 10-60 [facility] Comment on above: Performed By: #### L IPASE, CBC, CMP #### [facility] [address] [id number] [facility] Anion gap [Moles/Vol] 12.9 mmol/L Normal 6.0-15.0 [facility] Comment on above: Performed By: #### L IPASE, CBC, CMP #### [facility] [address] AST [Catalytic activity/Vol] 20 U/L Normal 10-42 [facility] Comment on above: Performed By: #### L IPASE, CBC, CMP #### [facility] [address] [place] [address] [place] Bilirubin [Mass/Vol] 0.3 mg/dL Normal 0.3-1.2 [facility] Comment on above: Performed By: #### L IPASE, CBC, CMP #### [facility] [address] [place] [address] [place] Calcium [Mass/Vol] 9.6 mg/dL Normal 8.2-10.2 [facility] Comment on above: Performed By: #### L IPASE, CBC, CMP #### [facility] [address] [id number] [place] Chloride [Moles/Vol] 102 mmol/L Normal 95-114 [facility] Comment on above: Performed By: #### L IPASE, CBC, CMP #### [facility] [address] [phone] [place] CO2 [Moles/Vol] 27.7 mmol/L Normal 22.0-30.0 [facility] Comment on above: Performed By: #### L IPASE, CBC, CMP #### [facility] [address] Creatinine [Mass/Vol] 0.73 mg/dL Normal 0.44-1.03 [facility] Comment on above: Performed By: #### L IPASE, CBC, CMP #### [facility] [address] Creatinine Clr Calc Pharmacy 96.11 [facility] Comment on above: Performed By: #### L IPASE, CBC, CMP #### [facility] [address] Estimated GFR ( [place] > 60 [facility] Comment on above: Result Comment: GFR estimated reference range: According to KDOQI guidelines, <60 ml/min/1.73m2 is sufficient to diagnose a patient with chronic kidney disease. Performed By: #### L IPASE, CBC, CMP #### [facility] [address] Estimated GFR (Non- Am > 60 [facility] Comment on above: Performed By: #### L IPASE, CBC, CMP #### [address] Globulin (S) [Mass/Vol] 2.7 g/dL Normal [facility] Comment on above: Performed By: #### L IPASE, CBC, CMP #### [address] Glucose [Mass/Vol] 115 mg/dL High 70-100 [facility] Comment on above: Result Comment: [place] Glucose Reference Range is dependent on time and content of last meal. Glucose of more than 200 mg/dL in a nonstressed, ambulatory subject supports the diagnosis of Diabetes Mellitus. ADA recommended reference range Performed By: #### L IPASE, CBC, CMP #### [address] Potassium [Moles/Vol] 3.6 mmol/L Normal 3.5-5.1 [facility] Comment on above: Performed By: #### L IPASE, CBC, CMP #### [facility] [address] [phone] [place] Protein [Mass/Vol] 6.2 g/dL Normal 6.1-7.9 [facility] Comment on above: Performed By: #### L IPASE, CBC, CMP #### [facility] [address] [phone] [place] Sodium [Moles/Vol] 139 mmol/L Normal 136-146 [facility] Comment on above: Performed By: #### L IPASE, CBC, CMP #### [facility] [address] [place] [address] [place] Urea nitrogen [Mass/Vol] 12 mg/dL Normal 9-23 [facility] Comment on above: Performed By: #### L IPASE, CBC, CMP #### [facility] [address] [place] [address] [place] Creatinine and Glomerular fi ltration rate.predicted panel (S/P/Bld)Ordered By: Brendan Mitchell on 09-05-2022 Creatinine [Mass/Vol] 0.73 mg/dL 0.44-1.03 [facility] ECG 12 lead ECGon 09-05-2022 ECG 12 lead ECG [facility] [address] [place] [address] Electrocardiograph Report Signed Patient: Zakiya Cuello MR#: [id number] : 1975 Acct:[id number] Age/Sex: 46 / F ADM Date: 09/05/22 Loc: ER Room: Type: [facility] ER Attending Dr: Ordering Provider: Brendan Mitchell [...] was found Confirmed by Brendan Mitchell DO ([id number]) on 09/05/2022 8:06:15 PM Referred By: Electronically Signed By:Brendan Mitchell DO Transcribed By: MUS Signed By Brendan Mitchell DO 2 2005 Normal [facility] Eosinophils Auto (Bld) [#/Vo l]Ordered By: Brendan Mitchell on 09-05-2022 Eosinophils (Bld) [#/Vol] 0.2 10*3/uL 0.0-0.45 [facility] Eosinophils/100 WBC Auto (Bl d)Ordered By: Brendan Mitchell on 09-05-2022 Eosinophils/100 WBC (Bld) 2.9 % . [facility] Erythrocyte distribution wid th Auto (RBC) [Ratio]Ordered By: Brendan Mitchell on 09-05-2022 Erythrocyte distribution width (RBC) [Ratio] 13.7 % 11.9-15.3 [facility] Estimated glomerular filtrat ion rate (GFR) non- AmericanOrdered By: Brendan Mitchell on 09-05-2022 GFR/1.73 sq M.predicted among non-blacks MDRD (S/P/Bld) [Vol rate/Area] > 60 mL/Min [facility] Globulin Calc (S) [Mass/Vol] Ordered By: Brendan Mitchell on 09-05-2022 Globulin (S) [Mass/Vol] 2.7 g/dL [facility] Hematocrit Auto (Bld) [Volum e fraction]Ordered By: Brendan Mitchell on 09-05-2022 Hematocrit (Bld) [Volume fraction] 36.0 % 34.0-46.4 [facility] Ketones Auto test strip (U) [Mass/Vol]Ordered By: Brendan Mitchell on 09-05-2022 Ketones (U) [Mass/Vol] Negative [facility] - [facility] and C hemistry - challengeOrdered By: Brendan Mitchell on 09-05-2022 Lipase [Catalytic activity/Vol] 38.0 U/L 22-51 [facility] - Hematology and Cell countsOrdered By: Brendan Mitchell on 09-05-2022 Nucleated RBC/100 WBC (Bld) [Ratio] 0.0 % 0-0.5 [facility] Lipaseon 09-05-2022 Lipase [Catalytic activity/Vol] 38.0 U/L Normal 22-51 [facility] Comment on above: Result Comment: PERF ORMED BY: [place] [address] PATHOLOGIST DIRECTOR [employer] HELENA BEVERLY M.D. Performed By: #### L IPASE, CBC, CMP #### [facility] [address] Lymphocytes Auto (Bld) [#/Vo l]Ordered By: Brendan Mitchell on 09-05-2022 Lymphocytes (Bld) [#/Vol] 2.6 10*3/uL 1.00-4.8 [facility] Lymphocytes/100 WBC Auto (Bl d)Ordered By: Brendan Mitchell on 09-05-2022 Lymphocytes/100 WBC (Bld) 32.4 % . [facility] MCH Auto (RBC) [Entitic mass ]Ordered By: Brendan Mitchell on 09-05-2022 MCH (RBC) [Entitic mass] 29.9 pg 24.7-34.3 [facility] MCHC Auto (RBC) [Mass/Vol]Or dered By: Brendan Mitchell on 09-05-2022 MCHC (RBC) [Mass/Vol] 33.8 g/dL 32.0-35.[address] [facility] MCV Auto (RBC) [Entitic vol] Ordered By: Brendan Mitchell on 09-05-2022 MCV (RBC) [Entitic vol] 88.6 fL 80-100 [facility] Monocytes Auto (Bld) [#/Vol] Ordered By: Brendan Mitchell on 09-05-2022 Monocytes (Bld) [#/Vol] 0.6 10*3/uL 0.0-0.8 [facility] Monocytes/100 WBC Auto (Bld) Ordered By: Brendan Mitchell on 09-05-2022 Monocytes/100 WBC (Bld) 7.6 % . [facility] Neutrophils Auto (Bld) [#/Vo l]Ordered By: Brendan Mitchell on 09-05-2022 Neutrophils (Bld) [#/Vol] 4.5 10*3/uL 1.8-7.7 [facility] Neutrophils/100 WBC Auto (Bl d)Ordered By: Brendan Mitchell on 09-05-2022 Neutrophils/100 WBC (Bld) 56.1 % . [facility] Nitrite Test strip Ql (U)Ord ered By: Brendan Mitchell on 09-05-2022 Nitrite Ql (U) Negative Negative [facility] No Panel InformationOrdered By: Brendan Mitchell on 09-05-2022 Estimated GFR () > 60 mL/Min [facility] Comment on above: GFR estimated refere nce range: According to KDOQI guidelines, <60 ml/min/1.73m2 is sufficient to diagnose a patient with chronic kidney disease. Pharmacy Creatinine Clearance (Chem 96.11 [facility] Platelet mean volume Auto (B ld) [Entitic vol]Ordered By: Brendan Mitchell on 09-05-2022 Platelet mean volume (Bld) [Entitic vol] 7.4 fL 6.3-10.7 [facility] Platelets Auto (Bld) [#/Vol] Ordered By: Brendan Mitchell on 09-05-2022 Platelets (Bld) [#/Vol] 319 10*3/uL 150-450 [facility] Protein Auto test strip (U) [Mass/Vol]Ordered By: Brendan Mitchell on 09-05-2022 Protein (U) [Mass/Vol] Negative Negative [facility] Protein [Mass/volume] in Ser um or PlasmaOrdered By: Brendan Mitchell on 09-05-2022 Protein [Mass/Vol] 6.2 g/dL 6.1-7.9 [facility] RBC Auto (Bld) [#/Vol]Ordere d By: Berndan Mitchell on 09-05-2022 RBC (Bld) [#/Vol] 4.07 10*6/uL 3.60-5.00 [facility] Serum or plasma alanine greene otransferase measurement without P-5'-P (enzymatic activiOrdered By: Brendan Mitchell on 09-05-2022 ALT No additional P-5'-P [Catalytic activity/Vol] 22 U/L 10-60 [facility] Serum or plasma albumin/glob ulin mass ratioOrdered By: Brendan Mitchell on 09-05-2022 Albumin/Globulin [Mass ratio] 1.3 {ratio} [facility] Serum or plasma alkaline rich sphatase measurement (enzymatic activity/volume)Ordered By: Brendan Mitchell on 09-05-2022 ALP [Catalytic activity/Vol] 46 U/L 32-92 [facility] Serum or plasma anion gap de terminationOrdered By: Brendan Mitchell on 09-05-2022 Anion gap [Moles/Vol] 12.9 mmol/L 6.0-15.0 [facility] Serum or plasma aspartate am inotransferase measurement (enzymatic activity/volume)Ordered By: Brendan Mitchell on 09-05-2022 AST [Catalytic activity/Vol] 20 U/L 10-42 [facility] Serum or plasma calcium michell urement (mass/volume)Ordered By: Brendan Mitchell on 09-05-2022 Calcium [Mass/Vol] 9.6 mg/dL 8.2-10.2 [facility] Serum or plasma chloride amber surement (moles/volume)Ordered By: Brendan Mitchell on 09-05-2022 Chloride [Moles/Vol] 102 mmol/L 95-114 [facility] Serum or plasma glucose michell urement (mass/volume)Ordered By: Brendan Mitchell on 09-05-2022 Glucose [Mass/Vol] 115 mg/dL 70-100 [facility] Comment on above: ADA recommended refe rence rangeRandom Glucose Reference Range is dependent on time and content of last meal. Glucose of more than 200 mg/dL in a nonstressed, ambulatory subject supports the diagnosis of Diabetes Mellitus. Serum or plasma potassium me asurement (moles/volume)Ordered By: Brendan Mitchell on 09-05-2022 Potassium [Moles/Vol] 3.6 mmol/L 3.5-5.1 [facility] Serum or plasma sodium measu rement (moles/volume)Ordered By: Brendan Mitchell on 09-05-2022 Sodium [Moles/Vol] 139 mmol/L 136-146 [facility] Serum or plasma total biliru bin measurement (mass/volume)Ordered By: Brendan Mitchell on 09-05-2022 Bilirubin [Mass/Vol] 0.3 mg/dL 0.3-1.2 [facility] Serum or plasma total carbon dioxide measurement (moles/volume)Ordered By: Brendan Mitchell on 09-05-2022 CO2 [Moles/Vol] 27.7 mmol/L 22.0-30.0 [facility] Serum or plasma urea nitroge n measurement (mass/volume)Ordered By: Brendan Mitchell on 09-05-2022 Urea nitrogen [Mass/Vol] 12 mg/dL 08-21 [facility] Specific gravity Auto test s trip (U) [Rel density]Ordered By: Brendan Mitchell on 09-05-2022 Specific gravity (U) [Rel density] 1.022 1.001-1.030 [facility] Urinalysison 09-05-2022 Appearance (U) Clear Normal Clear [facility] Comment on above: Order Comment: Name Collection Type:: Clean-Voided Midstream Performed By: #### U A #### [facility] [address] [place] [address] [place] Bilirubin,Urine Negative Normal Negative [facility] Comment on above: Order Comment: Name Collection Type:: Clean-Voided Midstream Performed By: #### U A #### [facility] [address] [place] [address] [place] Color (U) Dark Yellow Critically abnormal Yellow [facility] Comment on above: Order Comment: Name Collection Type:: Clean-Voided Midstream Performed By: #### U A #### [facility] [address] [id number] [place] Glucose Ql (U) Normal Normal Normal [facility] Comment on above: Order Comment: Name Collection Type:: Clean-Voided Midstream Performed By: #### U A #### [facility] [address] [id number] [place] Ketones Ql (U) Negative Normal Negative [facility] Comment on above: Order Comment: Name Collection Type:: Clean-Voided Midstream Performed By: #### U A #### [facility] [address] [place] [address] Leukocyte esterase Test strip Ql (U) Negative Normal Negative [facility] Comment on above: Order Comment: Name Collection Type:: Clean-Voided Midstream Performed By: #### U A #### [address] Nitrite,Urine Negative Normal Negative [facility] Comment on above: Order Comment: Name Collection Type:: Clean-Voided Midstream Performed By: #### U A #### [address] Occult Blood,Urine Negative Normal Negative [facility] Comment on above: Order Comment: Name Collection Type:: Clean-Voided Midstream Result Comment: PERF ORMED BY: [place] [address] PATHOLOGIST DIRECTOR [employer] HELENA BEVERLY M.D. Performed By: #### U A #### [address] pH (U) 6.5 [pH] Normal 5.0-9.0 [facility] Comment on above: Order Comment: Name Collection Type:: Clean-Voided Midstream Performed By: #### U A #### [address] Protein,Urine Negative Normal Negative [facility] Comment on above: Order Comment: Name Collection Type:: Clean-Voided Midstream Performed By: #### U A #### [address] Specificy [place],Urine 1.022 Normal 1.001-1.030 [facility] Comment on above: Order Comment: Name Collection Type:: Clean-Voided Midstream Performed By: #### U A #### [address] Urobilinogen,Urine Normal Normal Normal [facility] Comment on above: Order Comment: Name Collection Type:: Clean-Voided Midstream Performed By: #### U A #### [address] [id number] [place] Urine clarity by refractomet ry automatedOrdered By: Brendan Mitchell on 09-05-2022 Clarity Refractometry automated (U) Clear Clear [facility] Urine glucose measurement by automated test strip (mass/volume)Ordered By: Brendan Mitchell on 09-05-2022 Glucose Auto test strip (U) [Mass/Vol] Normal mg/dL Normal [facility] Urine hemoglobin detection b y automated test stripOrdered By: Brendan Mitchell on 09-05-2022 Hemoglobin Auto test strip Ql (U) Negative Negative [facility] Urine leukocyte esterase det ection by automated test stripOrdered By: Brendan Mitchell on 09-05-2022 Leukocyte esterase Auto test strip Ql (U) Negative Negative [facility] Urobilinogen Auto test strip (U) [Mass/Vol]Ordered By: Brendan Mitchell on 09-05-2022 Urobilinogen (U) [Mass/Vol] Normal mg/dL Normal [facility] pH Auto test strip (U)Ordere d By: Brendan Mitchell on 09-05-2022 pH (U) 6.5 [pH] 5.0-9.0 [facility] INSULINon 09-03-2022 Insulin 15.6 uIU/mL Normal 2.6-24.9 [facility] Comment on above: Performed By: #### I NSULIN #### [facility] [address] [place] [address] Dr. Nahomi Arana CBC AUTO DIFFon 09-02-2022 BASO # 0.0 103/ul Normal 0.0-0.1 [facility] Comment on above: Performed By: #### E BVPROF #### [facility] [address] [place] [address] Dr. Nahomi Arana Basophils/100 WBC (Bld) 0.5 % Normal 0.2-2.0 [facility] Comment on above: Performed By: #### E BVPROF #### [facility] [address] [place] [address] Dr. Nahomi Arana EO # 0.2 103/ul Normal 0.0-0.7 [facility] Comment on above: Performed By: #### E BVPROF #### [facility] [address] [place] [address] Dr. Nahomi Arana Eosinophils/100 WBC (Bld) 2.2 % Normal 0.9-7.0 [facility] Comment on above: Performed By: #### E BVPROF #### [facility] [address] [place] [address] Dr. Nahomi Arana Erythrocyte distribution width (RBC) [Ratio] 13.2 % Normal 11.0-15.0 [facility] Comment on above: Performed By: #### E BVPROF #### [facility] [address] [place] [address] Dr. Nahomi Arana Hematocrit (Bld) [Volume fraction] 39.3 % Normal 36.0-48.0 [facility] Comment on above: Performed By: #### E BVPROF #### [facility] [address] [place] [address] Dr. Nahomi Arana Hemoglobin (Bld) [Mass/Vol] 13.0 g/dL Normal 12.0-16.0 [facility] Comment on above: Performed By: #### E BVPROF #### [facility] [address] [place] [address] Dr. Nahomi Arana IG # 0.02 10e3/ul Normal 0.00-0.03 [facility] Comment on above: Performed By: #### E BVPROF #### [facility] [address] [place] [address] Dr. Nahomi Arana IG % 0.2 % Normal 0.0-0.5 [facility] Comment on above: Performed By: #### E BVPROF #### [facility] [address] [place] [address] Dr. Nahomi Arana LYMPH # 2.2 103/ul Normal 1.2-3.8 [facility] Comment on above: Performed By: #### E BVPROF #### [facility] [address] [place] [address] Dr. Nahomi Arana Lymphocytes/100 WBC (Bld) 25.7 % Normal 20.5-60.0 [facility] Comment on above: Performed By: #### E BVPROF #### [facility] [address] [place] [address] Dr. Nahomi Arana MANUAL DIFF REQ NO Normal [facility] Comment on above: Performed By: #### E BVPROF #### [facility] [address] [place] [address] Dr. Nahomi Arana MCH (RBC) [Entitic mass] 30.0 pg Normal 26.7-34.0 [facility] Comment on above: Performed By: #### E BVPROF #### [facility] [address] [place] [address] Dr. Nahomi Arana MCHC (RBC) [Mass/Vol] 33.1 g/dL Normal 29.9-35.2 [facility] Comment on above: Performed By: #### E BVPROF #### [facility] [address] [place] [address] Dr. Nahomi Arana MCV (RBC) [Entitic vol] 90.6 fL Normal 81.0-99.0 [facility] Comment on above: Performed By: #### E BVPROF #### [facility] [address] [place] [address] Dr. Nahomi Arana MONO # 0.5 103/ul Normal 0.3-0.8 [facility] Comment on above: Performed By: #### E BVPROF #### [facility] [address] [place] [address] Dr. Nahomi Arana Monocytes/100 WBC (Bld) 5.8 % Normal 1.7-12.0 [facility] Comment on above: Performed By: #### E BVPROF #### [facility] [address] [place] [address] Dr. Nahomi Arana NEUT # 5.6 103/ul Normal 1.4-6.5 [facility] Comment on above: Performed By: #### E BVPROF #### [facility] [address] [place] [address] Dr. Nahomi Arana Neutrophils/100 WBC (Bld) 65.6 % Normal 43.0-75.0 [facility] Comment on above: Performed By: #### E BVPROF #### [facility] [address] [place] [address] Dr. Nahomi Arana Platelet mean volume (Bld) [Entitic vol] 9.1 fL Critically low 9.5-13.5 [facility] Comment on above: Performed By: #### E BVPROF #### [facility] [address] [place] [address] Dr. Nahomi Arana PLT 340 103/ul Normal 150-450 [facility] Comment on above: Performed By: #### E BVPROF #### [facility] [address] [place] [address] Dr. Nahomi Arana RBC 4.34 106/ul Normal 4.20-5.40 [facility] Comment on above: Performed By: #### E BVPROF #### [facility] [address] [place] [address] Dr. Nahomi Arana WBC 8.5 103/ul Normal 4.0-11.0 [facility] Comment on above: Performed By: #### E BVPROF #### [facility] [address] [place] [address] Dr. Nahomi Arana CULTURE URINEon 09-02-2022 CULTURE URINE Culture Observations: LIGHT GROWTH OF MIXED GENITAL TOMMY. NO POTENTIAL PATHOGENS SEEN. Normal [facility] Comment on above: Performed By: #### E BVPROF #### [facility] [address] [place] [address] Dr. Nahomi Arana FREE THYROXINE INDEX T7on FTI 2.83 Normal 1.30-4.50 [facility] Comment on above: Performed By: #### C MP, LIPID, TSH, T7 #### [facility] [address] [place] [address] Dr. Nahomi Arnaa T3U 26.0 % Critically low 30.0-39.0 [facility] Comment on above: Performed By: #### C MP, LIPID, TSH, T7 #### [facility] [address] [place] [address] Dr. Nahomi Arana T4 [Mass/Vol] 10.90 ug/dL Normal 4.80-13.90 [facility] Comment on above: Performed By: #### C MP, LIPID, TSH, T7 #### [facility] [address] [place] [address] Dr. Nahomi Arana GLYCOHEMOGLOBIN A1Con 2021 ADA RECOMMENDATION SEE BELOW Normal [facility] Comment on above: Result Comment: ADA RECOMMENDED LIMIT 4.0 - 6.0 ADA THERAPEUTIC TARGET < 7.0 ACTION SUGGESTED > 7.0 Performed By: #### E BVPROF #### [facility] [address] [place] [address] Dr. Nahomi Arana Glucose [Mass/Vol] 108 mg/dL Normal [facility] Comment on above: Performed By: #### E BVPROF #### [facility] [address] [place] [address] Dr. Nahomi Arana HbA1c (Bld) [Mass fraction] 5.4 % Normal 4.5-6.2 [facility] Comment on above: Performed By: #### E BVPROF #### [facility] [address] [place] [address] Dr. Nahomi Arana IRONon 09-02-2022 Iron [Mass/Vol] 84.0 ug/dL Normal 50.0-170.0 [facility] Comment on above: Performed By: #### I ALISHA CHÁVEZ #### [facility] [address] [place] [address] Dr. Nahomi Arana LIPID PROFILEon 09-02-2022 CHOL-HDL RATIO NORM SEE BELOW Normal [facility] Comment on above: Result Comment: 3.3 - 4.4 LOW RISK 4.4 - 7.1 AVERAGE RISK 7.1 - 11.0 MODERATE RISK >11.0 HIGH RISK Performed By: #### C MP, LIPID, TSH, T7 #### [facility] [address] [place] [address] Dr. Nahomi Arana Cholesterol [Mass/Vol] 201 mg/dL Critically high <=200 [facility] Comment on above: Performed By: #### C MP, LIPID, TSH, T7 #### [facility] [address] [address] [address] Nahomi Arana Cholesterol in HDL [Mass/Vol] 57 mg/dL Normal 40-60 [facility] Comment on above: Performed By: #### C MP, LIPID, TSH, T7 #### [facility] [address] [address] [address] Nahomi Arana Cholesterol in LDL [Mass/Vol] 101.6 mg/dL Normal [facility] Comment on above: Performed By: #### C MP, LIPID, TSH, T7 #### [facility] [address] [address] [address] Nahomi Arana Cholesterol.total/Cholest damion in HDL [Mass ratio] 3.5 {ratio} Normal [facility] Comment on above: Performed By: #### C MP, LIPID, TSH, T7 #### [facility] [address] [address] [address] Nahomi Arana HDL NORMAL > or = 60 mg/dl - LOW CARDIOVASCULAR RISK <40 mg/dl - HIGH CARDIOVASCULAR RISK Normal [facility] Comment on above: Performed By: #### C MP, LIPID, TSH, T7 #### [facility] [address] [address] [address] Nahomi Arana LDL CALC NORMAL SEE BELOW Normal [facility] Comment on above: Result Comment: <100 mg/dl OPTIMAL 100 - 129 mg/dl NEAR OR ABOVE OPTIMAL 130 - 159 mg/dl BORDERLINE HIGH 160 - 189 mg/dl HIGH >190 mg/dl VERY HIGH Performed By: #### C MP, LIPID, TSH, T7 #### [facility] [address] [address] [address] Nahomi Arana Triglyceride [Mass/Vol] 212 mg/dL Critically high <=150 [facility] Comment on above: Performed By: #### C MP, LIPID, TSH, T7 #### [facility] [address] [address] [address] Nahomi Arana VLDL CALC 42.4 mg/dL Normal [facility] Comment on above: Performed By: #### C MP, LIPID, TSH, T7 #### [facility] [address] [address] [address] Nahomi Arana PROF 14(COMP METB)on 022 Albumin [Mass/Vol] 3.7 g/dL Normal 3.4-5.0 [facility] Comment on above: Performed By: #### C MP, LIPID, TSH, T7 #### [facility] [address] [address] [address] Nahomi Arana Albumin/Globulin [Mass ratio] 1.1 {ratio} Normal [facility] Comment on above: Performed By: #### C MP, LIPID, TSH, T7 #### [facility] [address] [address] [address] Nahomi Arana ALP [Catalytic activity/Vol] 59 U/L Normal 46-116 [facility] Comment on above: Performed By: #### C MP, LIPID, TSH, T7 #### [facility] [address] [place] [address] Dr. Nahomi Arana ALT [Catalytic activity/Vol] 26 U/L Normal 14-59 [facility] Comment on above: Performed By: #### C MP, LIPID, TSH, T7 #### [facility] [address] [address] [address] Nahomi Arana Anion gap [Moles/Vol] 8.6 mmol/L Normal [facility] Comment on above: Performed By: #### C MP, LIPID, TSH, T7 #### [facility] [address] [address] [address] Nahomi Arana AST [Catalytic activity/Vol] 13 U/L Critically low 15-37 [facility] Comment on above: Performed By: #### C MP, LIPID, TSH, T7 #### [facility] [address] [address] [address] Nahomi Arana Bilirubin [Mass/Vol] 0.4 mg/dL Normal 0.2-1.0 [facility] Comment on above: Performed By: #### C MP, LIPID, TSH, T7 #### [facility] [address] [address] [address] Nahomi Arana Calcium [Mass/Vol] 9.4 mg/dL Normal 8.5-10.1 [facility] Comment on above: Performed By: #### C MP, LIPID, TSH, T7 #### [facility] [address] [address] [address] Nahomi Arana Chloride [Moles/Vol] 104 mmol/L Normal 98-107 [facility] Comment on above: Performed By: #### C MP, LIPID, TSH, T7 #### [facility] [address] [address] [address] Nahomi Arana CO2 [Moles/Vol] 31.5 mmol/L Normal 21.0-32.0 [facility] Comment on above: Performed By: #### C MP, LIPID, TSH, T7 #### [facility] [address] [place] [address] Dr. Nahomi Arana Creatinine [Mass/Vol] 0.80 mg/dL Normal 0.55-1.02 [facility] Comment on above: Performed By: #### C MP, LIPID, TSH, T7 #### [facility] [address] [place] [address] Dr. Nahomi Arana EGFR-AF MACEDONIAN >60 Normal >=60 [facility] Comment on above: Performed By: #### C MP, LIPID, TSH, T7 #### [facility] [address] [place] [address] Dr. Nahomi Arana EGFR-NON AF MACEDONIAN >60 Normal >=60 [facility] Comment on above: Performed By: #### C MP, LIPID, TSH, T7 #### [facility] [address] [place] [address] Dr. Nahomi Arana Globulin (S) [Mass/Vol] 3.5 g/dL Normal T [facility] Comment on above: Performed By: #### C MP, LIPID, TSH, T7 #### [facility] [address] [place] [address] Dr. Nahomi Arana Glucose [Mass/Vol] 96 mg/dL Normal 74-106 [facility] Comment on above: Performed By: #### C MP, LIPID, TSH, T7 #### [facility] [address] [address] [address] Nahomi Arana Potassium [Moles/Vol] 4.1 mmol/L Normal 3.5-5.1 [facility] Comment on above: Performed By: #### C MP, LIPID, TSH, T7 #### [facility] [address] [place] [address] Dr. Nahomi Arana Protein [Mass/Vol] 7.2 g/dL Normal 6.4-8.2 [facility] Comment on above: Performed By: #### C MP, LIPID, TSH, T7 #### [facility] [address] [place] [address] Dr. Nahomi Arana Sodium [Moles/Vol] 140 mmol/L Normal 136-145 [facility] Comment on above: Performed By: #### C MP, LIPID, TSH, T7 #### [facility] [address] [place] [address] Dr. Nahomi Arana Urea nitrogen [Mass/Vol] 12.0 mg/dL Normal 7.0-18.0 [facility] Comment on above: Performed By: #### C MP, LIPID, TSH, T7 #### [facility] [address] [address] [address] Nahomi Arana Urea nitrogen/Creatinine [Mass ratio] 15.0 mg/mg Normal [facility] Comment on above: Performed By: #### C MP, LIPID, TSH, T7 #### [facility] [address] [place] [address] Dr. Nahomi Arana TSHon 09-02-2022 TSH 0.743 uIU/mL Normal 0.358-3.740 [facility] Comment on above: Performed By: #### C MP, LIPID, TSH, T7 #### [facility] [address] [place] [address] Dr. Nahomi Arana UA RANDOM W/MICROSCOPICon BACTERIA TRACE Abnormal NONE SEEN [facility] Comment on above: Performed By: #### U AMIC #### [facility] [address] [place] [address] Dr. Nahomi Arana Bilirubin Ql (U) Negative Normal NEGATIVE [facility] Comment on above: Performed By: #### U AMIC #### [facility] [address] [address] [address] Nahomi Arana CAST NONE SEEN Normal NONE SEEN [facility] Comment on above: Performed By: #### U AMIC #### [facility] [address] [address] [address] Nahomi Arana Clarity (U) CLEAR Normal CLEAR [facility] Comment on above: Performed By: #### U AMIC #### [facility] [address] [address] [address] Nahomi Arana Color (U) YELLOW Normal YELLOW [facility] Comment on above: Performed By: #### U AMIC #### [facility] [address] [address] [address] Nahomi Arana Crystals LM Nom (Urine sed) NONE SEEN Normal NONE SEEN [facility] Comment on above: Performed By: #### U AMIC #### [facility] [address] [address] [address] Nahomi Arana Epithelial cells LM Ql (Urine sed) RARE Normal NONE SEEN /RARE [facility] Comment on above: Performed By: #### U AMIC #### [facility] [address] [address] [address] Nahomi Arana Glucose Ql (U) Negative Normal NEGATIVE [facility] Comment on above: Performed By: #### U AMIC #### [facility] [address] [address] [address] Nahomi Arana Hemoglobin Ql (U) Negative Normal NEGATIVE [facility] Comment on above: Performed By: #### U AMIC #### [facility] [address] [address] [address] Nahomi Arana Ketones Ql (U) Negative Normal NEGATIVE [facility] Comment on above: Performed By: #### U AMIC #### [facility] [address] [address] [address] Nahomi Arana LEUKOCYTES Negative Normal NEGATIVE [facility] Comment on above: Performed By: #### U AMIC #### [facility] [address] [address] [address] Nahomi Arana MUCOUS TRACE Abnormal NONE SEEN [facility] Comment on above: Performed By: #### U AMIC #### [facility] [address] [address] [address] Nahomi Arana Nitrite Ql (U) Negative Normal NEGATIVE [facility] Comment on above: Performed By: #### U AMIC #### [facility] [address] [address] [address] Nahomi Arana pH (U) 5.5 [pH] Normal 5-9 [facility] Comment on above: Performed By: #### U AMIC #### [facility] [address] [place] [address] Dr. Nahomi Arana RBC 0-2 Normal 0-2 [facility] Comment on above: Performed By: #### U AMIC #### [facility] [address] [place] [address] Dr. Nahomi Arana SPEC GRAVITY >=1.030 Abnormal 1.005-<=1.02 5 [facility] Comment on above: Performed By: #### U AMIC #### [facility] [address] [place] [address] Dr. Nahomi Arana UA PROTEIN Negative Normal NEGATIVE/ TRACE [facility] Comment on above: Performed By: #### U AMIC #### [facility] [address] [place] [address] Dr. Nahomi Arana Urobilinogen Qn (U) 0.2 {Jesus'U}/dL Normal 0.2 - 1. 0 [facility] Comment on above: Performed By: #### U AMIC #### [facility] [address] [place] [address] Dr. Nahomi Arana WBC 0-2 Abnormal NONE SEEN [facility] Comment on above: Performed By: #### U AMIC #### [facility] [address] [place] [address] Dr. Nahomi Arana VITAMIN D 25 OHon 09-02-2022 VIT D 25-OH 29.5 ng/mL Normal [facility] [facility] Comment on above: Performed By: #### I KYLER, VITAD #### [facility] [address] [place] [address] Dr. Nahomi Arana VIT D RANGES SEE BELOW Normal [facility] Comment on above: Result Comment: <20 ng/mL Vit D deficient 20 - <30 ng/mL Vit D insufficient 30 - 100 ng/mL Vit D sufficient >100 ng/mL Potential Toxicity Performed By: #### I KYLER VITAD #### [facility] [address] [place] [address] Dr. Nahomi Arana PAP ACOG PANEL 2: 30 to 65on 07-10-2022 . . Normal [facility] Comment on above: Result Comment: Perf ormed at: WB Performed By: #### E BVPROF #### [facility] [address] [place] [address] Dr. Nahomi Arana Age Gdln ACOG Testing 30-65 Normal [facility] Comment on above: Performed By: #### E BVPROF #### [facility] [address] [place] [address] Dr. Nahomi Arana DIAGNOSIS: Comment Normal [facility] Comment on above: Result Comment: NEGA TIVE FOR INTRAEPITHELIAL LESION OR MALIGNANCY. Performed at: WB Performed By: #### E BVPROF #### [facility] [address] [place] [address] Dr. Nahomi Arana HPV Aptima Negative Normal Negative [facility] Comment on above: Result Comment: This nucleic acid amplification test detects fourteen high-risk HPV types (16,18,31,33,35,39,45,51,52,56,58,59,66,68) without differentiation. Performed at: =G Performed By: #### E BVPROF #### [facility] [address] [place] [address] Dr. Nahomi Arana Methodology: Comment Normal [facility] Comment on above: Result Comment: This liquid based ThinPrep(R) pap test was screened with the use of an image guided system. Performed at: WB Performed By: #### E BVPROF #### [facility] [address] [place] [address] Dr. Nahomi Arana Note: Comment Normal [facility] Comment on above: Result Comment: The Pap smear is a screening test designed to aid in the detection of premalignant and malignant conditions of the uterine cervix. It is not a diagnostic procedure and should not be used as the sole means of detecting cervical cancer. Both false-positive and false-negative reports do occur. . Performed at: WB Performed By: #### E BVPROF #### [facility] [address] [place] [address] Dr. Nahomi Arana Performed by: Comment Normal [facility] Comment on above: Result Comment: Sabra Bryant, [employer] (ASCP) Performed at: WB Performed By: #### E BVPROF #### [facility] [address] [place] [address] Dr. Nahomi Arana Specimen adequacy: Comment Normal [facility] Comment on above: Result Comment: Sati sfactory for evaluation. No endocervical component is identified. Performed at: WB Performed By: #### E BVPROF #### [facility] [address] [place] [address] Dr. Nahomi Arana Covid-19 PCR (CVDTB)on 04-30 SARS-CoV-2 (COVID-19) RNA ORTIZ+probe Ql (Unsp spec) Detected Critically abnormal NOT DETECTED [facility] Comment on above: Result Comment: This test is not yet approved or cleared by the [place] FDA. When there are no FDA-approved or cleared tests available, and other criteria are met, FDA can make tests available under an emergency access mechanism called an Emergency Use Authorization (EUA). The EUA for this test is supported by the [place] Inspector of Health and Human Service's declaration that [...] used). Performed By: #### C VDTBH #### [facility] [address] [place] [address] Dr. Nahomi Arana ZAID by IFAon 12-09-2021 ZAID Pattern Negative Normal [facility] Comment on above: Performed By: #### W SR, VITD, C3COMP, C4COMP, CRP, ENAID, CCP, ANAIFS, RF, DNAAB, CK ####[place] [address] [place], [place] [phone] ZAID Titer Negative Normal Negative [facility] Comment on above: Result Comment: Norm al range : negative at <1:80 serum dilution. Performed By: #### W SR, VITD, C3COMP, C4COMP, CRP, ENAID, CCP, ANAIFS, RF, DNAAB, CK ####[address] [phone] Nuclear Ab IF (S) [Titer] Negative Normal Negative [facility] Comment on above: Result Comment: Norm [...] CRP, ENAID, CCP, ANAIFS, RF, DNAAB, CK ####[address] [phone] C-Reactive Proteinon 022 C-Reactive Protein 0.3 mg/dL Normal <0.9 [facility] Comment on above: Performed By: #### W SR, VITD, C3COMP, C4COMP, CRP, ENAID, CCP, ANAIFS, RF, DNAAB, CK ####[address] [phone] C3 Complementon 12-09-2021 C3 Complement 167 mg/dL High 86-166 [facility] Comment on above: Performed By: #### W SR, VITD, C3COMP, C4COMP, CRP, ENAID, CCP, ANAIFS, RF, DNAAB, CK ####[facility] [place], [place] [phone] C4 Complementon 12-09-2021 C4 Complement 21 mg/dL Normal 13-46 [facility] Comment on above: Performed By: #### W SR, VITD, C3COMP, C4COMP, CRP, ENAID, CCP, ANAIFS, RF, DNAAB, CK ####[address] [phone] CCP Antibody, IgGon 12-09-19 22 CCP Antibody, IgG <15 Normal <20 [facility] Comment on above: Result Comment: < 20 units: Negative 20-39 units: Weak Positive 40-59 units: Moderate Positive > 60 units: Strong Positive The following results were obtained with the [employer] QUANTA Lite CCP3 IgG ANGELICA. Anti-CCP values obtained with different manufacturers' assay methods may not be used interchangeably. The magnitude of the reported IgG levels cannot be correlated to an endpoint titer. Performed By: #### W SR, VITD, C3COMP, C4COMP, CRP, ENAID, CCP, ANAIFS, RF, DNAAB, CK ####[address] [phone] CKon 12-09-2021 CK [Catalytic activity/Vol] 117 U/L Normal 42-196 [facility] Comment on above: Performed By: #### W SR, VITD, C3COMP, C4COMP, CRP, ENAID, CCP, ANAIFS, RF, DNAAB, CK ####[place] [id number] [place], [place] [phone] CNOVon 12-09-2021 CNOV Office Visit (RHEUMN) ---- YONATANZAKIYA Walsh ([id number]) 1975 F Date Time Provider Department 12/09/21 [...] (human papilloma virus) infection - Hyperlipidemia 09/2015 [id number] - Migraine - Neuropathy Diagnosis made by [...] Lysis of adhesions.Monarc transobturator midurethral sling, ref [id number], lot [id number]. 4. Posterior repair. - REMOVAL ADENOIDS,PRIMARY,<1 2 [...] LEAST 35 (more content not included)... Normal [facility] DNA Antibodyon 12-09-2021 DNA Antibody 16 IU/mL Normal <30 [facility] Comment on above: Result Comment: Nega tive for ds DNA Antibodies Negative: <30 IU/mL Equivocal: 30-74 IU/mL Positive: >74 IU/mL Performed By: #### W SR, VITD, C3COMP, C4COMP, CRP, ENAID, CCP, ANAIFS, RF, DNAAB, CK ####[address] [phone] JAMEEL Antibody Panelon 022 Centromere <0.2 Normal <1.0 [facility] Comment on above: Result Comment: NEGA TIVE Negative: <1.0 AI Positive: >0.9 AI Test performed using the Multiplex Flow Immunoassay technology. Performed By: #### W SR, VITD, C3COMP, C4COMP, CRP, ENAID, CCP, ANAIFS, RF, DNAAB, CK ####[address] [phone] Chromatin Antibody <0.2 Normal <1.0 [facility] Comment on above: Result Comment: NEGA TIVE Negative: <1.0 AI Positive: >0.9 AI Test performed using the Multiplex Flow Immunoassay technology. Performed By: #### W SR, VITD, C3COMP, C4COMP, CRP, ENAID, CCP, ANAIFS, RF, DNAAB, CK ####[address] [place], [place] [phone] NICOLE 1 Antibody <0.2 Normal <1.0 [facility] Comment on above: Result Comment: NEGA TIVE Negative: <1.0 AI Positive: >0.9 AI Test performed using the Multiplex Flow Immunoassay technology. Performed By: #### W SR, VITD, C3COMP, C4COMP, CRP, ENAID, CCP, ANAIFS, RF, DNAAB, CK ####[address] [phone] Ribosomal LANDSCAPING MANAGER <0.2 Normal <1.0 [facility] Comment on above: Result Comment: NEGA TIVE Negative: <1.0 AI Positive: >0.9 AI Test performed using the Multiplex Flow Immunoassay technology. Performed By: #### W SR, VITD, C3COMP, C4COMP, CRP, ENAID, CCP, ANAIFS, RF, DNAAB, CK ####[address] [phone] LANDSCAPING MANAGER Antibody <0.2 Normal <1.0 [facility] Comment on above: Result Comment: NEGA TIVE Negative: <1.0 AI Positive: >0.9 AI Test performed using the Multiplex Flow Immunoassay technology. Performed By: #### W SR, VITD, C3COMP, C4COMP, CRP, ENAID, CCP, ANAIFS, RF, DNAAB, CK ####[address] [phone] Scleroderma IgG Ab <0.2 Normal <1.0 [facility] Comment on above: Result Comment: NEGA TIVE Negative: <1.0 AI Positive: >0.9 AI Test performed using the Multiplex Flow Immunoassay technology. Performed By: #### W SR, VITD, C3COMP, C4COMP, CRP, ENAID, CCP, ANAIFS, RF, DNAAB, CK ####[address] [place], [place] [phone] Sm Antibody <0.2 Normal <1.0 [facility] Comment on above: Result Comment: NEGA TIVE Negative: <1.0 AI Positive: >0.9 AI Test performed using the Multiplex Flow Immunoassay technology. Performed By: #### W SR, VITD, C3COMP, C4COMP, CRP, ENAID, CCP, ANAIFS, RF, DNAAB, CK ####[address] [phone] SSA Antibody <0.2 Normal <1.0 [facility] Comment on above: Result Comment: NEGA TIVE Negative: <1.0 AI Positive: >0.9 AI Test performed using the Multiplex Flow Immunoassay technology. Performed By: #### W SR, VITD, C3COMP, C4COMP, CRP, ENAID, CCP, ANAIFS, RF, DNAAB, CK ####[address] [place], [place] [phone] SSB Antibody <0.2 Normal <1.0 [facility] Comment on above: Result Comment: NEGA TIVE Negative: <1.0 AI Positive: >0.9 AI Test performed using the Multiplex Flow Immunoassay technology. Performed By: #### W SR, VITD, C3COMP, C4COMP, CRP, ENAID, CCP, ANAIFS, RF, DNAAB, CK ####[address] [phone] Rheumatoid Factoron 12-09-19 22 Rheumatoid Factor <10 Normal <16 [facility] Comment on above: Performed By: #### W SR, VITD, C3COMP, C4COMP, CRP, ENAID, CCP, ANAIFS, RF, DNAAB, CK ####[address] [phone] Sed Rate Westergrenon 2021 Sed Rate Westergren 20 mm/hr Normal 0-20 [facility] Comment on above: Performed By: #### W SR, VITD, C3COMP, C4COMP, CRP, ENAID, CCP, ANAIFS, RF, DNAAB, CK ####[address] [phone] Urinalysison 12-09-2021 Bilirubin, Urine Negative Normal Negative [facility] Comment on above: Performed By: #### U A ####[address] [phone] Clarity (U) Clear Normal Clear [facility] Comment on above: Performed By: #### U A ####[place] [phone] Color (U) Straw Critically abnormal Yellow [facility] Comment on above: Performed By: #### U A ####[place] [phone] Comments SEE COMMENT Normal [facility] Comment on above: Result Comment: Micr oscopic Examination Performed Performed By: #### U A ####[place] [phone] Epithelial cells LM Ql (Urine sed) SEE COMMENT Normal [facility] Comment on above: Result Comment: Few Squamous Epithelial Cells Performed By: #### U A ####[place] [phone] Glucose Ql (U) Negative Normal Negative [facility] Comment on above: Performed By: #### U A ####[place] [phone] Hemoglobin/Blood,Ur 1+ Critically abnormal Negative [facility] Comment on above: Performed By: #### U A ####[place] [phone] Ketones Ql (U) Negative Normal Negative [facility] Comment on above: Performed By: #### U A ####[place] [address] [place] [phone] Leukest Negative Normal Negative [facility] Comment on above: Performed By: #### U A ####[place] [phone] Nitrite Ql (U) Negative Normal Negative [facility] Comment on above: Performed By: #### U A ####[place] [address] [place], [place] [phone] pH (U) 6.0 [pH] Normal 5.0-8.0 [facility] Comment on above: Performed By: #### U A ####[place] [address] [place], [place] [phone] Protein, Urine Negative Normal Negative [facility] Comment on above: Performed By: #### U A ####[address] [phone] RBC 0-3 Normal 0-3 [facility] Comment on above: Performed By: #### U A ####[address] [phone] Specific [place], Ur 1.008 Normal 1.005-1.030 [facility] Comment on above: Performed By: #### U A ####[address] [phone] Urine Abdirizak Comment SEE COMMENT Normal [facility] Comment on above: Result Comment: N/A Performed By: #### U A ####[address] [phone] Urobilinogen (U) [Mass/Vol] Negative Normal Negative [facility] Comment on above: Performed By: #### U A ####[address] [phone] WBC 0-5 Normal 0-5 [facility] Comment on above: Performed By: #### U A ####[address] [phone] Vitamin D 25 Hydroxyon 12-09 Vitamin D 25 Hydroxy 27.5 ng/mL Low 31.0-80.0 [facility] Comment on above: Result Comment: Clas sification of 25 [place] Vitamin D status: Insufficiency/Moderate Deficiency: < or = 30 ng/mL Sufficiency/Optimal Levels: 31 to 80 ng/mL Toxicity: > 100 ng/mL Test performed by chemiluminescent immunoassay. Performed By: #### W SR, VITD, C3COMP, C4COMP, CRP, ENAID, CCP, ANAIFS, RF, DNAAB, CK ####[facility] [id number] [place], [place] [phone] XR HAND 3V PA/LAT/OBL BILon 12-09-2021 XR [...] No other significant abnormality. ------- IMPRESSION: OSTEOARTHRITIS Log Driver: CELSO Transcribe Date/Time: Dec 09 2021 3:11P Dictated by : MIRIAM BILL MD This examination was interpreted and the report reviewed and electronically signed by: MIRIAM BILL MD on Dec 09 2021 3:12PM EST [id number] Normal [facility] CNOVon 08-14-2021 CNOV Office Visit (GYNMN) ---- ZAKIYA CUELLO ([id number]) 1975 F Date Time Provider Department 08/14/21 [...] (human papilloma virus) infection - Hyperlipidemia 09/2015 [id number] - Migraine - Neuropathy Diagnosis made by [...] Lysis of adhesions.Monarc transobturator midurethral sling, ref [id number], lot [id number]. 4. Posterior repair. 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 Visit grain broker present: Berna Sethi MA GEN: Pleasant, cooperative, NAD SKIN: Color, texture, turgor nl. Warm, dry. ENDO: No obvious hirsutism signs. EYES: Conjunctivae clear. No discoloration. NECK: No mass LUNGS: Breathing comfortably without distress, CTAB HEART: RRR, no r/g ABDOMEN: Soft. NTND. No masses. PELVIC: external genitalia normal, normal Bartholin's glands, urethra, Wisdom's glands, no vulvar lesions, good vaginal support, physiologic discharge present, normal appearing perineal body and perianal region. No cervical lesions. BIMANUAL: no adnexal masses and non-tender. uterus normal size, shape and consistency THE FOLLOWIN (more content not included)... Normal [facility] 05-08-2021 CNPN Telephone (DERBMN) ---- ZAKIYA CUELLO ([id number]) 1975 F Date Time Provider Department 05/08/21 [...] Encounter Status:Closed by TAMELA VASQUEZ on 05/08/21 [facility] OBSOLETEon 05-01-2021 OBSOLETE Refill (GYNMN) ---- ZAKIYA CUELLO ([id number]) 1975 F Date Time Provider Department 05/01/21 [...] Please call and advise the patient at [phone] Thank you Zehra Jiang E- [id number] [place] [address] - [address] [facility] [phone] [place] [address] Zehra Rivera RN 05/02/2021 3:33 PM Signed [...] Encounter Status:Closed by NUNO RIVERA on 05/02/21 [facility] 04-22-2021 CNOV Office Visit (DERMMN) ---- ZAKIYA CUELLO ([id number]) 1975 F Date Time Provider Department 04/22/21 [...] Past Histories independently gathered by the clinical it support manager and the remaining scribed note accurately describes [...] effluvium [L65.0] Order(s):ZINC BLD [SQZINC] Order #: [id number] FUTURE IRON + TIBC [SQIRON] Order #: [id number] FUTURE FERRITIN BLD [SQFERR] Order #: [id number] FUTURE VITAMIN D 25 HYDROXY [SQVITD] Order #: [id number] FUTURE Prescriptions as of 04/22/2021 Sig: (more content not included)... Normal [facility] Ferritinon 04-22-2021 Ferritin [Mass/Vol] 44.4 ng/mL Normal 14.7-205.1 [facility] Comment on above: Performed By: #### F ERR, ZINC, IRON, VITD ####[address] [phone] Iron and TIBCon 04-22-2021 Iron [Mass/Vol] 79 ug/dL Normal 41-186 [facility] Comment on above: Performed By: #### F ERR, ZINC, IRON, VITD ####[address] [place], [place] [phone] TIBC 382 ug/dL Normal 232-386 [facility] Comment on above: Performed By: #### F ERR, ZINC, IRON, VITD ####[address] [place], [place] [phone] Transferrin Saturatn 21 % Normal 15-57 [facility] Comment on above: Performed By: #### F ERR, ZINC, IRON, VITD ####[address] [place], [place] [phone] Vitamin D 25 Hydroxyon 04-22 Vitamin D 25 Hydroxy 32.7 ng/mL Normal 31.0-80.0 [facility] Comment on above: Result Comment: Clas sification of 25 [place] Vitamin D status: Insufficiency/Moderate Deficiency: < or = 30 ng/mL Sufficiency/Optimal Levels: 31 to 80 ng/mL Toxicity: > 100 ng/mL Test performed by chemiluminescent immunoassay. Performed By: #### F ERR, ZINC, IRON, VITD ####[facility] [id number] [place], [place] [phone] Zincon 04-22-2021 Zinc 79 ug/dL Normal 55-150 [facility] Comment on above: Result Comment: This test was developed and its performance characteristics determined by [facility] [place] ([facility]). It has not been cleared or approved by the FDA. [facility] is regulated under CLIA as qualified to perform high complexity testing. This test is used for clinical purposes. It should not be regarded as investigational or for research. Performed By: #### F ERR, ZINC, IRON, VITD ####[facility] [id number] [place], [place] [phone] Vital Signs Date Time Vital Sign Value Performing Clinician Faci lity 03-31-2023 10:35-0400 Body height 160.02 cm MD Eugenio Obrien Work Phone: [facility] 03-31-2023 10:35-0400 Body temperature 98 [degF] MD Eugenio Obrien Work Phone: [facility] 03-31-2023 10:35-0400 Body weight 77.7 kg MD Eugenio Obrien Work Phone: [facility] 03-31-2023 10:35-0400 Diastolic blood pressure 91 mm[Hg] MD Eugenio Obrien Work Phone: [facility] 03-31-2023 10:35-0400 Heart rate 73 /min MD Eugenio Obrien Work Phone: [facility] 03-31-2023 10:35-0400 Respiratory rate 16 /min MD Eugenio Obrien Work Phone: [facility] 03-31-2023 10:35-0400 SaO2% (BldA) [Mass fraction] 98 % MD Eugenio Obrien Work Phone: [facility] 03-31-2023 10:35-0400 Systolic blood pressure 151 mm[Hg] MD Eugenio Obrien Work Phone: [facility] 09-05-2022 18:50-0400 Diastolic blood pressure 88 mm[Hg] MD Eugenio Obrien Work Phone: [facility] 09-05-2022 18:50-0400 Heart rate 86 /min MD Eugenio Obrien Work Phone: [facility] 09-05-2022 18:50-0400 Respiratory rate 18 /min MD Eugenio Obrien Work Phone: [facility] 09-05-2022 18:50-0400 SaO2% (BldA) [Mass fraction] 99 % MD Eugenio Obrien Work Phone: [facility] 09-05-2022 18:50-0400 Systolic blood pressure 142 mm[Hg] MD Eugenio Obrien Work Phone: [facility] 09-05-2022 17:05-0400 Body height 166.37 cm MD Eugenio Obrien Work Phone: [facility] 09-05-2022 17:05-0400 Body temperature 98.1 [degF] MD Eugenio Obrien Work Phone: [facility] 09-05-2022 17:05-0400 Body weight 76 kg MD Eugenio Obrien Work Phone: [facility] Encounters Encounter Date Encounter Type Care Provider Facility Start: 11-01-2023 End: 11-02-2023 ambulatory Ramon Rivas MD Facility:[facility] Start: 10-04-2023 End: 10-05-2023 ambulatory Ramon Rivas MD Facility:[facility] Start: 07-21-2023 End: 07-21-2023 ambulatory Eugenio Obrien Facility:[facility] Start: 07-21-2023 End: 07-21-2023 ambulatory MD Eugenio Obrien Work Phone: [facility] Work Phone: Start: 07-21-2023 End: 07-21-2023 Patient encounter procedure MD Eugenio Obrien Work Phone: [facility] Work Phone: Start: 06-02-2023 End: 06-02-2023 ambulatory SWETA MILEY [facility] Start: 04-30-2023 ambulatory ANDRIUS GIEDRAMANISH Faci lity:[facility] Start: 04-30-2023 End: 05-01-2023 ambulatory Ramon Rivas MD Facility:[facility] Start: 03-31-2023 End: 03-31-2023 Emergency department patient visit Eugenio Obrien Facility:[facility] Start: 03-31-2023 End: 03-31-2023 Emergency department patient visit MD Eugenio Obrien Work Phone: [facility] [place] Work Phone: Start: 03-25-2023 End: 03-25-2023 ambulatory MARYBEL SWANSON . Facility:[facility] Start: 12-18-2022 Telephone encounter Lake Dailey DO Work Phone: Ophthalmology Comment on above: Orders Start: 12-07-2022 End: 12-08-[address] EUGENIO OBRIEN . Facility:[facility] Start: 11-09-2022 Refill Fatoumata Wild MD Work Phone: Gynecology Comment on above: Refill Request Start: 11-06-2022 End: 11-06-2022 ambulatory Eugenio Obrien Facility:[facility] Start: 10-27-2022 End: 10-28-[address] EUGENIO OBRIEN . Facility:[facility] Start: 09-22-2022 End: 09-22-2022 ambulatory АЛЕКСАНДР GÓMEZ Facility:[facility] Start: 09-09-2022 End: 09-10-[address] EUGENIO OBRIEN . Facility:[facility] Start: 09-05-2022 End: 09-05-2022 Emergency department patient visit Eugenio Obrien Facility:[facility] Start: 09-05-2022 End: 09-05-2022 Emergency department patient visit MD Eugenio Obrien Work Phone: [facility] [place] Start: 09-02-2022 End: 09-03-[address] [...] Author Start: 07-10-2025 LIPID SCREEN LIPID SCREEN [facility] Start: 07-21-2023 Dehydroepiandrosterone sulfate level [facility] Start: 07-21-2023 [facility] Start: 07-10-2023 DIABETES SCREEN DIABETES SCREEN [facility] Start: 11-29-2022 DEPRESSION ASSESSMENT DEPRESSION ASSESSMENT [facility] Start: 07-30-2022 Influenza vaccination INFLUENZA (#1) [facility] Start: 11-29-2021 DEPRESSION ASSESSMENT DEPRESSION ASSESSMENT [facility] Start: 08-07-2021 COVID-19 VACCINE (3 - Booster for Moderna series) COVID-19 VACCINE (3 - Booster for Moderna series) [facility] Start: 2018 COLOGUARD (FIT-DNA) COLOGUARD (FIT-DNA) [facility] Start: 2018 Colonoscopy COLONOSCOPY [facility] Start: 2018 COLORECTAL CANCER SCREENING COLORECTAL CANCER SCREENING [facility] Start: [address] COLONOGRAPHY [facility] Start: 2018 FECAL OCCULT BLOOD FECAL OCCULT BLOOD [facility] Start: 2018 SIGMOIDOSCOPY SIGMOIDOSCOPY [facility] Start: 2013 Mammography MAMMOGRAM [facility] Start: 1992 Urine microalbumin profile DTAP,TDAP,TD (1 - Tdap) [facility] Start: 1991 HEPATITIS C SCREENING HEPATITIS C SCREENING [facility] Start: 1991 HIV SCREENING HIV SCREENING [facility] Start: 1973 HEPATITIS B (1 of 3 - 3-dose series) HEPATITIS B (1 of 3 - 3-dose series) [facility] Patient Education [facility] Work Phone: Patient referral [facility] Work Phone: Testosterone Free [M ass/volume] in Serum or Plasma [facility] Payers Date Payer Category Payer Unknown 2022 Self-pay [id number] 2019 Medicaid [employer] [place] [id number] 2019-Present [phone] [place] [address] Medicaid [id number] 1975 Unknown [id number] 1975 Unknown [id number] 1975 Unknown [id number] 1975 Unknown [id number] 1975 Unknown [id number] 2.16.840.1.328407.3.579.2.593 1973 Unknown [id number] 2.16.840.1.579673.3.579.2.593 1973 Unknown [id number] 2.16.840.1.968221.3.579.2.593 1973 Unknown [id number] 2.16.840.1.834279.3.579.2.593 1973 Unknown [id number] 2.16.840.1.600795.3.579.2.593 1973 Unknown [id number] 2.16.840.1.120458.3.579.2.593 1973 Unknown [id number] 2.16.840.1.581328.3.579.2.593 1973 Unknown [id number] 2.16.840.1.174942.3.579.2.196 1973 Unknown [id number] 2.16.840.1.065989.3.579.2.196 1973 Unknown [id number] 2.16.840.1.020675.3.579.2.196 1961 Medicaid [id number] 1961 Self-pay [id number] Unknown [place] BC/BS [id number] Unknown [id number] 2.16840.1.718927.3.579.2.531 Unknown [id number] .16840.1.904738.3.579.2.531 Unknown [id number] .[id number] Unknown [id number] 2.16840.1.535146.3.579.2.531 Social History Date Type Detail Facility Start: 09-05-2022 End: 03-31-2023 Tobacco smoking status NHIS Never smoked tobacco (finding) [facility] Start: 1975 Sex Assigned At Female [facility] Start: 06-10-2015 Tobacco use and exposure Smokeless tobacco non-user [facility] Start: 01-08-2022 Alcohol intake Current drinke r of alcohol (finding) [facility] Start: 10-25-2015 Alcohol Comment social [facility] Start: 1975 Sex Assigned At Not on file [facility] Medical Equipment Procedure Code Equipment Code Equipment Origin al Text Equipment Identifier Dates Evelyn Ambrosio [facility] - [id number] Start: 07-01-2015 Clinical Notes 04-22-2021 to [...] in a finger splint and referred to [facility] Ortho for further evaluation and treatment. In [...] Past Medical History: Diagnosis Date Diabetes mellitus ([facility]) Objective General: Body mass index is 28.52 kg/m???. There were no vitals filed for this visit. 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 [facility] 12-24-2022 Miscellaneous Notes Images from the original note were not included. Contacted the patient and left a message the prescription has been updated. Also faxed the prescription to [facility] as requested. Lake Ro, OD You 18 hours ago (4:03 PM) The patient's glasses prescription has been finalized and should be available on My Chart. You Lake Ro, OD 3 days ago CLAIRE Mckenna, is there any way you can release the manifest for the patient for their appointment with you 10/2021? Lake Dailey, DO [facility] 4 days ago The patient was not refracted by us because she already has an sorting grapple operator (Dr Lake Ro) who takes care of her glasses. She should contact his office. [facility] calling for pts glasses prescription. Please fax to [phone]. Thank you! documented in this encounter [facility] 11-11-2022 Miscellaneous Notes Noted, thanks Phoned pt, [...] Troy Lubin RN documented in this encounter [facility] 01-08-2022 Note HNO ID: [id number] Author: Lake Dailey DO Service: ? Author [...] Dailey DO January 08, 2022 9:22 AM [facility] 12-09-2021 Note HNO ID: [id number] Author: RT Kim(R) Service: Radiology Author Type: [...] RT Kim(R) December 09, 2021 3:17 PM [facility] 12-09-2021 Note HNO ID: [id number] Author: Neeta Amador MD Service: ? Author [...] (human papilloma virus) infection - Hyperlipidemia 09/2015 [id number] - Migraine - Neuropathy Diagnosis made by [...] Lysis of adhesions.Monarc transobturator midurethral sling, ref [id number], lot [id number]. 4. Posterior repair. - REMOVAL ADENOIDS,PRIMARY,<12 Y/O [...] 500 mg t (more content not included)... [facility] 10-30-2021 Note HNO ID: [id number] Author: Lake Ro OD Service: ? Author Type: CASER IN Type: Progress Notes Filed: 10/30/2021 9:59 AM [...] Ro, BILLY October 30, 2021 9:56 AM [facility] 10-20-2021 Note HNO ID: [id number] Author: Lake Ro OD Service: ? Author Type: CASER IN Type: Progress Notes Filed: 10/20/2021 9:06 AM [...] Ro, OD October 20, 2021 9:04 AM [facility] 08-15-2021 Note HNO ID: [id number] Author: Fatoumata Wild MD Service: ? Author Type: Physician Type: Progress Notes Filed: 08/14/2021 10:37 PM Note Text: I spent a total of 40+ minutes on the date of the service which included preparing to see the patient, [id number] patient care, completing clinical documentation, obtaining and/or reviewing separately obtained history, performing a medically appropriate examination, counseling and educating the patient/family/caregiver, ordering medications, tests, or procedures and independently interpreting results (not separately reported). [facility] 08-14-2021 Note HNO ID: [id number] Author: Fatoumata Wild MD Service: ? Author [...] (human papilloma virus) infection - Hyperlipidemia 09/2015 [id number] - Migraine - Neuropathy Diagnosis made by [...] Lysis of adhesions.Monarc transobturator midurethral sling, ref [id number], lot [id number]. 4. Posterior repair. 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 Visit grain broker present: Berna Sethi MA GEN: Pleasant, cooperative, NAD SKIN: Color, texture, turgor nl. Warm, dry. ENDO: No obvious hirsutism signs. EYES: Conjunctivae clear. No discoloration. NECK: No mass LUNGS: Breathing comfortably without distress, CTAB HEART: RRR, no r/g ABDOMEN: Soft. NTND. No masses. PELVIC: external genitalia normal, normal Bartholin's glands, urethra, Wisdom's glands, no vulvar lesions, good vaginal support, [...] 4-8 o'clock-severe, a (more content not included)... [facility] 04-22-2021 Note HNO ID: [id number] Author: Franklin Prather MD Service: ? Author [...] Past Histories independently gathered by the clinical it support manager and the remaining scribed note accurately describes [...] infection last year hair Franklin Prather MD [facility] Evaluation note No assessment inform ation available [facility] [place] Work Phone: Hospital Discharge instructions Additional Instructions Follow-up with your primary care doctor Return to ED if develop worsening symptoms or concerns [facility] [place] Work Phone: Summary Purpose Family History No [...] section and content) DATE CREATED AUTHOR 01/16/2022 [facility] DATE CREATED AUTHOR AUTHOR'S ORGANIZ ATION 04/09/2023 [facility] DATE CREATED AUTHOR AUTHOR'S ORGANIZ ATION 06/09/2023 [facility] DATE CREATED AUTHOR AUTHOR'S ORGANIZ ATION 07/30/2023 [facility] DATE CREATED AUTHOR AUTHOR'S ORGANIZ ATION 11/12/2023 [facility] Care Teams (unrecognized sec tion and content) Team Status: Active Member Role Status Dates Eugenio Obrien MD Primary Care Provider Active Team Status: Inactive Member Role Status Dates Eugenio Obrien MD Primary Care Provider Active Poli Vázquez APRN Emergency Provider Active Team Status: Inactive Member Role Status Dates Eugenio Obrien MD Primary Care Provider Active Brendan Mitchell DO Emergency Provider Active Director Of Blood Relationship Specialty Start Date End Date Eugenio Obrien MD [address] [place] [address] PCP - General Family Medicine 07/05/20 Team [...] or prosecute any alcohol or drug abuse patient.[place] the event this information is protected by the Federal Confidentiality of Alcohol and Drug Abuse Patient Records regulations: The Federal rules restrict any use of the information to criminally investigate or prosecute any alcohol or drug abuse patient.[facility] Reason for Visit (unrecogniz ed section and [...] BE BASED ON THE PRIMARY CLINICAL RECORDS. [facility]. provides no warranty or guarantee of the accuracy or completeness of information in this document.
[2023-11-28 16:23] LABS: Influenza Virus A Antigen Negative; Influenza Virus B Antigen Negative; Internal Control Within Normal Limits
[2023-11-28 16:51] VITALS: BP 124/88; PULSE 106; RESP 20; O2SAT 98
--- NOTE | 2023-11-28 17:02 | ED.URI1 ---
HPI - URI/Sore Throat General Chief Complaint: Upper Respiratory Infection Stated Complaint: Sore Throat, Fatigue Time Seen by Provider: 11/28/23 16:49 Source: patient History of Present Illness HPI Narrative: The patient coming to the ER with almost a few days history of runny nose sore throat as well as as well as congestion, nausea also and vomiting no diarrhea. The patient mentioned that she woke in correction she has been her only with multiple people who had similar symptoms. The patient also is complaining of bodyaches The patient is also complaining of a headache and she did take some Excedrin before arrival Related Data Home Medications Medication Instructions Recorded Confirmed clobetasol 0.05 % scalp solution 1 applic topical DAILY 04/30/23 11/01/23 ferrous sulfate 143 mg (45 mg 143 mg PO DAILY 04/30/23 11/01/23 iron) tablet,extended release (Slow Release Iron) gabapentin 600 mg tablet 600 mg PO BID 04/30/23 11/01/23 liothyronine 5 mcg tablet 10 mcg PO DAILY 04/30/23 11/01/23 metoprolol succinate 100 mg 150 mg PO DAILY 04/30/23 11/01/23 tablet,extended release 24 hr pantoprazole 40 mg tablet,delayed 40 mg PO BID 04/30/23 11/01/23 release prazosin 5 mg capsule 5 mg PO DAILY 04/30/23 11/01/23 progesterone 100 mg PO .QD 04/30/23 11/01/23 simvastatin 40 mg tablet 40 mg PO DAILY 04/30/23 11/01/23 cholecalciferol (vitamin D3) 125 125 mcg PO DAILY 05/01/23 11/01/23 mcg (5,000 unit) capsule ezetimibe 10 mg tablet 10 mg PO DAILY 05/01/23 11/01/23 lurasidone 20 mg tablet (Latuda) 20 mg PO DAILY 05/01/23 11/01/23 albuterol 90 mcg/actuation aerosol 90 mcg inhalation Q4H PRN 05/02/23 11/01/23 inhaler shortness of breath budesonide-formoterol HFA 160 2 inh inhalation BID 05/02/23 11/01/23 mcg-4.5 mcg/actuation aerosol inhaler ketoconazole 2 % shampoo 1 applic topical DAILY 05/02/23 10/04/23 sucralfate 1 gram tablet 1 g PO Q6H 05/02/23 11/01/23 tiotropium bromide 1.25 2 inh inhalation DAILY 05/02/23 11/01/23 mcg/actuation mist for inhalation (Spiriva Respimat) diazepam 10 mg tablet mg 10/04/23 levothyroxine 50 mcg tablet mcg 11/01/23 Previous Rx's Medication Instructions Recorded aspirin 325 mg tablet 81 mg (0.2492 x 325 mg) PO QD@0900 05/03/23 #30 tabs famotidine 20 mg tablet (Pepcid) 20 mg PO BID #10 tabs 11/28/23 ondansetron 4 mg disintegrating 4 mg PO Q8H nasuea and vomiting 11/28/23 tablet 48 hours #6 tabs Allergies Allergy/AdvReac Type Severity Reaction Status Date / Time Sulfa (Sulfonamide Allergy Severe Anaphylaxis Verified 11/01/23 09:19 Antibiotics) clarithromycin [From Biaxin] AdvReac Severe Verified 11/01/23 09:19 lamotrigine [From Lamictal] AdvReac Severe Verified 11/01/23 09:19 Penicillins AdvReac Severe Verified 11/01/23 09:19 Review of Systems ROS Status of ROS 10 or more systems reviewed and unremarkable except as noted in history and below [facility] Medical History Acid reflux ?K21.9 - Gastro-esophageal reflux disease without esophagitis (ICD-10) Altered mental status ?R41.82 - Altered mental status, unspecified (ICD-10) Angina at rest ?I20.8 - Other forms of angina pectoris (ICD-10) Anxiety ?F41.9 - Anxiety disorder, unspecified (ICD-10) Aphasia ?R47.01 - Aphasia (ICD-10) Heartburn ?R12 - Heartburn (ICD-10) Hiatal hernia ?K44.9 - Diaphragmatic hernia without obstruction or gangrene (ICD-10) High cholesterol ?E78.00 - Pure hypercholesterolemia, unspecified (ICD-10) Loud snoring ?R06.83 - Snoring (ICD-10) Low back pain ?M54.50 - Low back pain, unspecified (ICD-10) Sinus tachycardia ?R00.0 - Tachycardia, unspecified (ICD-10) Sleep apnea ?G47.30 - Sleep apnea, unspecified (ICD-10) TMJ (temporomandibular joint syndrome) ?M26.609 - Unspecified temporomandibular joint disorder, unspecified side (ICD-10) Surgical History H/O: hysterectomy ?Z90.710 - Acquired absence of both cervix and uterus (ICD-10) S/P nasal surgery ?Z98.890 - Other specified postprocedural states (ICD-10) H/O tubal ligation ?Z98.51 - Tubal ligation status (ICD-10) H/O eye surgery ?Z98.890 - Other specified postprocedural states (ICD-10) History of tonsillectomy and adenoidectomy ?Z90.89 - Acquired absence of other organs (ICD-10) Social History Gender Identity: female Exam Narrative Exam Narrative: Nurses notes and vital signs reviewed and patient is not hypoxic. General: Well-appearing and in no apparent distress. Skin: Warm, dry, no pallor noted. No rash. Head: Normocephalic, atraumatic. Neck: Supple, non-tender. Eye: Pupils are equal, round and EOMI. No scleral icterus. Ears, Nose, Mouth, and Throat: TM are clear, there is nasal congestion and bilateral tonsillar erythema ,uvula is mid-line Cardiovascular: Regular Rate and Rhythm without murmur, gallop or rub. Respiratory: No accessory muscle use or respiratory distress. Lungs are clear to auscultation, no wheezing, rales or rhonchi Chest Wall: no tenderness Back: No midline thoracic or lumbar vertebral tenderness. No CVA tenderness Musculoskeletal: normal ROM, no calf or popliteal tenderness, no lower extremity edema/swelling GI: Abdomen is soft, non-distended. Normal bowel sounds. No masses appreciated. No tenderness to palpation. No rebound, guarding, or rigidity noted. Neurological: A&O x4. No cranial nerve dysfunction observed. No truncal ataxia. Moves all extremities. Sensation intact. Psychiatric: Cooperative and interactive. Normal mood and affect. Constitutional Vital Signs, click to edit/add: Last Vital Signs Temp 98.6 F 11/28/23 15:59 Pulse 106 H 11/28/23 16:51 Resp 20 11/28/23 16:51 BP 124/88 11/28/23 16:51 Pulse Ox 98 11/28/23 16:51 O2 Del Method Room Air 11/28/23 15:59 Course Vital Signs Vital signs: Vital Signs Temperature 98.6 F 11/28/23 15:59 Pulse Rate 119 H 11/28/23 15:59 Respiratory Rate 20 11/28/23 15:59 Blood Pressure 124/76 11/28/23 15:59 Pulse Oximetry 97 11/28/23 15:59 Oxygen Delivery Method Room Air 11/28/23 15:59 Temperature 98.6 F 11/28/23 15:59 Pulse Rate 106 H 11/28/23 16:51 Respiratory Rate 20 11/28/23 16:51 Blood Pressure 124/88 11/28/23 16:51 Pulse Oximetry 98 11/28/23 16:51 Oxygen Delivery Method Room Air 11/28/23 15:59 MDM - URI/Sore Throat MDM Narrative Medical decision making narrative: The patient influenza test was negative showed he had a COVID test at home that was negative to Right now the patient will be discharged with supportive care after she had Toradol in the ER as well as Zofran after which she was tolerating p.o. intake She was given a work excuse and to continue supportive care at home The patient is to follow up with primary care physician in next 2-3 days or to return to the emergency department should any of the signs or symptoms worsen or new symptoms develop. The patient agrees with the following Diagnosis and Treatment plan and the patient will be discharged home. Lab Data Labs: Lab Results 11/28/23 Range/Units 16:10 Influenza Type A Ag Negative Influenza Type B Ag Negative Discharge Plan Discharge Chief Complaint: Upper Respiratory Infection Clinical Impression: Acute viral syndrome Patient Disposition: Home, Self-Care Time of Disposition Decision: 16:59 Condition: Good Prescriptions / Home Meds: New ondansetron 4 mg tablet,disintegrating 4 mg PO Q8H 2 Days Qty: 6 0RF famotidine [Pepcid] 20 mg tablet 20 mg PO BID Qty: 10 0RF Discontinued ibuprofen 800 mg tablet 800 mg PO Q6H PRN (Reason: pain) No Action diazepam 10 mg tablet progesterone 100 mg PO .QD gabapentin 600 mg tablet 600 mg PO BID metoprolol succinate 100 mg tablet extended release 24 hr 150 mg PO DAILY liothyronine 5 mcg tablet 10 mcg PO DAILY simvastatin 40 mg tablet 40 mg PO DAILY prazosin 5 mg capsule 5 mg PO DAILY pantoprazole 40 mg tablet,delayed release (DR/EC) 40 mg PO BID clobetasol 0.05 % solution 1 applic TOPICAL DAILY Rx Instructions: - then off on the weekends Slow Release Iron 143 mg (45 mg iron) tablet extended release 143 mg PO DAILY cholecalciferol (vitamin D3) 125 mcg (5,000 unit) capsule 125 mcg PO DAILY ezetimibe 10 mg tablet 10 mg PO DAILY lurasidone [Latuda] 20 mg tablet 20 mg PO DAILY budesonide-formoterol 160-4.5 mcg/actuation HFA aerosol inhaler 2 inh inhalation BID Spiriva Respimat 1.25 mcg/actuation mist 2 inh inhalation DAILY sucralfate 1 gram tablet 1 g PO Q6H ketoconazole 2 % shampoo 1 applic topical DAILY Rx Instructions: WASH SCALP DAILY THEN RINSE albuterol 90 mcg/actuation aerosol 90 mcg inhalation Q4H PRN (Reason: shortness of breath) Rx Instructions: 2 PUFFS inhaled; aspirin 325 mg Tablet 81 mg PO QD@0900 Qty: 30 0RF levothyroxine 50 mcg tablet Instructions: Viral Syndrome (ED) Stand Alone Forms: Portal Instructions Referrals: Wan Obrien MD [Primary Care Provider] - 1 week
[2023-11-28] MEDS: ONDANSETRON 4 MG RAPDIS TABLET SL (17:26)
[2023-11-28] MEDS: KETOROLAC TROMETHAMINE 30 MG/ML VIAL IM (17:26)
== END 2023-11-28 17:33 | disposition home or self-care (01) ==
PROVIDERS: Emergency Provider Emergency Medicine; PCP Family Medicine
DX: B34.9 Viral infection, unspecified (principal); K21.9 Gastro-esophageal reflux disease without esophagitis; F41.9 Anxiety disorder, unspecified; E78.00 Pure hypercholesterolemia, unspecified; G47.30 Sleep apnea, unspecified; Z90.710 Acquired absence of both cervix and uterus
CPT/HCPCS: 87804; 96372; 99284

== ENCOUNTER 2023-11-29 08:51 | Outpatient (RCR) | payer OTHER, SELFPAY | END 2023-12-27 17:13 | disposition home or self-care (01) | LOC: PT 08:51 | PROVIDERS: PCP Family Medicine; Visit Provider Anesthesiology | DX: M47.817 Spondylosis without myelopathy or radiculopathy, lumbosacral region (principal) ==

== ENCOUNTER 2023-12-27 07:44 | Day surgery (SDC) | payer OTHER, SELFPAY ==
--- OUTSIDE RECORDS SUMMARY | 2023-12-27 07:46 | XMS_ITS | CCD ---
Author Name Unknown Address [address] [place] [address] Organization [facility] Care Team Providers Care Approver Name Role Phone MD Eugenio Obrien Primary Care Provider [phone] DO Brendan Mitchell Emergency Provider Eugenio Obrien MD Primary Care Provider [phone] MD Eugenio Obrien Primary Care Provider [phone] RAMAN Vázquez Emergency Provider [phone] SKY .MARYBEL Attending Unavailable SKY ., MARYBEL [...] Unavailable MD Eugenio Obrien Primary Care Provider [phone] MD Shayy Lozada Attending Provider [phone] Eugenio Obrien Primary Care Unavailable Poli Vázquez [...] sources) Clarithromycin; Translations: [CLARITHROMYCIN] Drug Allergy [address] [facility] (7 sources) lamoTRIgine; Translations: [LAMOTRIGINE] Drug Allergy 4 Rash [facility] (7 sources) Sulfonamides (Antibiotic); Translations: [SULFA (SULFONAMIDE ANTIBIOTICS)] Allergy to substance [address] [facility] (3 sources) Penicillins; Translations: [PENICILLINS] Propensity to adverse reactions to drug 4 Unknown [facility] (1 source) Clarithromycin Drug Allergy 3 [facility] (2 sources) diphenhydrAMINE Drug Allergy 5 [facility] (1 source) lamoTRIgine Drug Allergy 4 [facility] (2 sources) Penicillins Drug allergy (disorder) 3 [facility] (2 sources) Sulfonamides (Antibiotic) Drug allergy (disorder) 3 [facility] (1 source) Bee pollen; Translations: [BEE POLLEN] Propensity to adverse reactions to drug (disorder) 3 [facility] (1 source) diphenhydrAMINE; Translations: [DIPHENHYDRAMINE HCL] Drug Allergy 3 [facility] Medications Current Medications Medication Drug [...] Comment on above: INHALE 2 PUFFS BY [facility] TWICE DAILY *RINSE AFTER USE* cloNIDine hydrochloride [...] 06-02-2023 Episodic Other aftercare (1 source) Other assisted (current) drug therapy; Translations: [OTH [employer] [place] CURRENT DRUG THERAPY] Onset: 03-29-2023 Episodic Other [...] Antinuclear Abs, IFA Positive Critically abnormal . [facility] Comment on above: Result Comment: Nega tive <1:80 Borderline 1:80 Positive >1:80 Performed By: #### L IPASE, CBC, CMP #### [facility] [address] Homogeneous Pattern 1:80 Normal . [facility] Comment on above: Result Comment: ICAP nomenclature: AC-1 Performed By: #### L IPASE, CBC, CMP #### [facility] [address] Note 1 Normal . [facility] Comment on above: Result Comment: For [...] titers Nucleosomes, Histones Drug-induced SLE Speckled Sm, SEXER, SCL-70, SLE,MCTD,PSS (diffuse form), SS-A/SS-B Sjogrens Nucleolar SCL-70, PM-1/SCL High titers Scleroderma, PM/DM Centromere Centromere PSS (limited form) w/Crest syndrome variable Nuclear Dot [id number] Primary Biliary Cirrhosis Nuclear GP210, Primary Biliary Cirrhosis Membrane joleen A,B,C Performed at: - [facility] [id number] [place] Operator: Eric Vasquez PhD, Phone: [phone] PERFORMED BY: [place] [address] PATHOLOGIST DESIGN COORDINATOR HELENA BEVERLY M.D. Performed By: #### L IPASE, CBC, CMP #### [address] Alanine aminotransferase [En zymatic activity/volume] in Serum or PlasmaOrdered By: Shayy Lozada on 07-21-2023 ALT [Catalytic activity/Vol] 23 U/L 7- [facility] Albumin [Mass/volume] in Ser um or Plasma by Bromocresol green (BCG) dye binding methoOrdered By: Shayy Lozada on 07-21-2023 Albumin BCG dye [Mass/Vol] 4.3 g/dL 3.5-5.7 [facility] Alkaline phosphatase [Enzyma tic activity/volume] in Serum or PlasmaOrdered By: Shayy Lozada on 07-21-2023 ALP [Catalytic activity/Vol] 57 U/L 34-104 [facility] Aspartate aminotransferase [ Enzymatic activity/volume] in Serum or PlasmaOrdered By: Shayy Lozada on 07-21-2023 AST [Catalytic activity/Vol] 17 U/L 13-39 [facility] Basophils Auto (Bld) [#/Vol] Ordered By: Shayy Lozada on 07-21-2023 Basophils (Bld) [#/Vol] 0.1 10*3/uL 0.0-0.2 [facility] Basophils/100 WBC Auto (Bld) Ordered By: Shayy Lozada on 07-21-2023 Basophils/100 WBC (Bld) 1.2 % . [facility] Bilirubin.total [Mass/volume ] in Serum or PlasmaOrdered By: Shayy Lozada on 07-21-2023 Bilirubin [Mass/Vol] 0.5 mg/dL 0.3-1.0 [facility] Calcium [Mass/volume] in Ser um or PlasmaOrdered By: Shayy Lozada on 07-21-2023 Calcium [Mass/Vol] 9.4 mg/dL 8.6-10.3 [facility] Carbon dioxide, total [Moles /volume] in Serum or PlasmaOrdered By: Shayy Lozada on 07-21-2023 CO2 [Moles/Vol] 29.8 mmol/L 21.0-31.0 [facility] Chloride [Moles/volume] in S [place] or PlasmaOrdered By: Shayy Lozada on 07-21-2023 Chloride [Moles/Vol] 108 mmol/L 98-107 [facility] Complete Blood Count Auto Di ffon 07-21-2023 Basophils (Bld) [#/Vol] 0.1 10*3/uL Normal 0.0-0.2 [facility] Comment on above: Performed By: #### L IPASE, CBC, CMP #### [facility] [address] Basophils/100 WBC (Bld) 1.2 % Normal . [facility] Comment on above: Performed By: #### L IPASE, CBC, CMP #### [address] Eosinophils (Bld) [#/Vol] 0.0 10*3/uL Normal 0.0-0.45 [facility] Comment on above: Performed By: #### L IPASE, CBC, CMP #### [address] Eosinophils/100 WBC (Bld) 0.1 % Normal . [facility] Comment on above: Performed By: #### L IPASE, CBC, CMP #### [address] Erythrocyte distribution width (RBC) [Ratio] 13.2 % Normal 11.9-15.3 [facility] Comment on above: Performed By: #### L IPASE, CBC, CMP #### [address] Hematocrit (Bld) [Volume fraction] 36.6 % Normal 34.0-46.4 [facility] Comment on above: Performed By: #### L IPASE, CBC, CMP #### [address] Hemoglobin (Bld) [Mass/Vol] 12.5 g/dL Normal 11.8-15.4 [facility] Comment on above: Performed By: #### L IPASE, CBC, CMP #### [place] [address] [place] Lymphocytes (Bld) [#/Vol] 1.8 10*3/uL Normal 1.00-4.8 [facility] Comment on above: Performed By: #### L IPASE, CBC, CMP #### [address] [address] [place] Lymphocytes/100 WBC (Bld) 37.2 % Normal . [facility] Comment on above: Performed By: #### L IPASE, CBC, CMP #### [facility] [address] MCH (RBC) [Entitic mass] 29.7 pg Normal 24.7-34.3 [facility] Comment on above: Performed By: #### L IPASE, CBC, CMP #### [facility] [address] MCV (RBC) [Entitic vol] 86.7 fL Normal 80-100 [facility] Comment on above: Performed By: #### L IPASE, CBC, CMP #### [address] Mean Corpuscular HGB Conc 34.2 g/dL Normal 32.0-35.0 [facility] Comment on above: Performed By: #### L IPASE, CBC, CMP #### [address] Monocytes (Bld) [#/Vol] 0.4 10*3/uL Normal 0.0-0.8 [facility] Comment on above: Performed By: #### L IPASE, CBC, CMP #### [address] Monocytes/100 WBC (Bld) 8.9 % Normal . [facility] Comment on above: Performed By: #### L IPASE, CBC, CMP #### [place] [address] [place] Neutrophils (Bld) [#/Vol] 2.5 10*3/uL Normal 1.8-7.7 [facility] Comment on above: Performed By: #### L IPASE, CBC, CMP #### [address] Neutrophils/100 WBC (Bld) 52.6 % Normal . [facility] Comment on above: Performed By: #### L IPASE, CBC, CMP #### [address] NRBC% 0.0 /100{WBC} Normal 0-0.5 [facility] Comment on above: Performed By: #### L IPASE, CBC, CMP #### [address] Platelet mean volume (Bld) [Entitic vol] 7.5 fL Normal 6.3-10.7 [facility] Comment on above: Performed By: #### L IPASE, CBC, CMP #### [address] Platelets (Bld) [#/Vol] 259 10*3/uL Normal 150-450 [facility] Comment on above: Performed By: #### L IPASE, CBC, CMP #### [address] RBC (Bld) [#/Vol] 4.22 10*6/uL Normal 3.60-5.00 [facility] Comment on above: Performed By: #### L IPASE, CBC, CMP #### [address] WBC (Bld) [#/Vol] 4.8 10*3/uL Normal 3.8-11.6 [facility] Comment on above: Performed By: #### L IPASE, CBC, CMP #### [address] Comprehensive Metabolic Pane sonny 07-21-2023 Albumin [Mass/Vol] 4.3 g/dL Normal 3.5-5.7 [facility] Comment on above: Performed By: #### C MP, CBC, T4F, ESR, TSH3 #### [address] #### TESTF, DHEAS, ZAID #### [facility] , Albumin/Globulin [Mass ratio] 1.9 {ratio} Normal [facility] Comment on above: Performed By: #### C MP, CBC, T4F, ESR, TSH3 #### [address] #### TESTF, DHEAS, ZAID #### [facility] , ALP [Catalytic activity/Vol] 57 U/L Normal 34-104 [facility] Comment on above: Performed By: #### C MP, CBC, T4F, ESR, TSH3 #### [facility] [address] [place] [address] [place] #### TESTF, DHEAS, ZAID #### [facility] , ALT [Catalytic activity/Vol] 23 U/L Normal 7-52 [facility] Comment on above: Performed By: #### C MP, CBC, T4F, ESR, TSH3 #### [address] #### TESTF, DHEAS, ZAID #### [facility] , Anion gap [Moles/Vol] 9.6 mmol/L Normal 6.0-15.0 [facility] Comment on above: Performed By: #### C MP, CBC, T4F, ESR, TSH3 #### [facility] [address] [place] [place] [address] #### TESTF, DHEAS, ZAID #### [facility] , AST [Catalytic activity/Vol] 17 U/L Normal 13-39 [facility] Comment on above: Performed By: #### C MP, CBC, T4F, ESR, TSH3 #### [place] [address] [place] #### TESTF, DHEAS, ZAID #### [facility] , Bilirubin [Mass/Vol] 0.5 mg/dL Normal 0.3-1.0 [facility] Comment on above: Performed By: #### C MP, CBC, T4F, ESR, TSH3 #### [place] [address] [place] #### TESTF, DHEAS, ZAID #### [facility] , Calcium [Mass/Vol] 9.4 mg/dL Normal 8.6-10.3 [facility] Comment on above: Performed By: #### C MP, CBC, T4F, ESR, TSH3 #### [facility] [address] [place] [place] [address] #### TESTF, DHEAS, ZAID #### [facility] , Chloride [Moles/Vol] 108 mmol/L High 98-107 [facility] Comment on above: Performed By: #### C MP, CBC, T4F, ESR, TSH3 #### [place] [address] [place] #### TESTF, DHEAS, ZAID #### [facility] , CO2 [Moles/Vol] 29.8 mmol/L Normal 21.0-31.0 [facility] Comment on above: Performed By: #### C MP, CBC, T4F, ESR, TSH3 #### [place] [address] [place] #### TESTF, DHEAS, ZAID #### [facility] , Creatinine [Mass/Vol] 0.76 mg/dL Normal 0.60-1.20 [facility] Comment on above: Performed By: #### C MP, CBC, T4F, ESR, TSH3 #### [facility] [address] [place] [address] [place] #### TESTF, DHEAS, ZAID #### [facility] , GFR/1.73 sq M.predicted MDRD (S/P/Bld) [Vol rate/Area] mL/min/{1.73_m2} Normal [facility] Comment on above: Performed By: #### C MP, CBC, T4F, ESR, TSH3 #### [place] [address] [place] #### TESTF, DHEAS, ZAID #### [facility] , Globulin (S) [Mass/Vol] 2.3 g/dL Normal [facility] Comment on above: Performed By: #### C MP, CBC, T4F, ESR, TSH3 #### [place] [address] [place] #### TESTF, DHEAS, ZAID #### [facility] , Glucose [Mass/Vol] 101 mg/dL High 70-100 [facility] Comment on above: Result Comment: [facility] Glucose Reference Range is dependent on time and content of last meal. Glucose of more than 200 mg/dL in a nonstressed, ambulatory subject supports the diagnosis of Diabetes Mellitus. ADA recommended reference range Performed By: #### C MP, CBC, T4F, ESR, TSH3 #### [address] #### TESTF, DHEAS, ZAID #### [facility] , Potassium [Moles/Vol] 4.4 mmol/L Normal 3.5-5.1 [facility] Comment on above: Performed By: #### C MP, CBC, T4F, ESR, TSH3 #### [place] [address] [place] #### TESTF, DHEAS, ZAID #### [facility] , Protein [Mass/Vol] 6.6 g/dL Normal 6.4-8.9 [facility] Comment on above: Performed By: #### C MP, CBC, T4F, ESR, TSH3 #### [place] [address] [place] #### TESTF, DHEAS, ZAID #### [facility] , Sodium [Moles/Vol] 143 mmol/L Normal 136-145 [facility] Comment on above: Performed By: #### C MP, CBC, T4F, ESR, TSH3 #### [place] [address] [place] #### TESTF, DHEAS, ZAID #### [facility] , Urea nitrogen [Mass/Vol] 12 mg/dL Normal 7-25 [facility] Comment on above: Performed By: #### C MP, CBC, T4F, ESR, TSH3 #### [facility] [address] [place] [address] #### TESTF, DHEAS, ZAID #### [facility] , Creatinine [Mass/volume] in Serum or PlasmaOrdered By: Shayy Lozada on 07-21-2023 Creatinine [Mass/Vol] 0.76 mg/dL 0.60-1.20 [facility] Dehydroepiandrosterone Sulfa meeta 07-21-2023 Dehydroepiandrosterone Sulfate 135.0 ug/dL Normal 41.2-243.7 [facility] Comment on above: Result Comment: Perf ormed at: [facility] [address] [id number] [place] Operator: Eric Vasquez PhD, Phone: [phone] Performed By: #### L IPASE, CBC, CMP #### [address] Eosinophils Auto (Bld) [#/Vo l]Ordered By: Shayy Lozada on 07-21-2023 Eosinophils (Bld) [#/Vol] 0.0 10*3/uL 0.0-0.45 [facility] Eosinophils/100 WBC Auto (Bl d)Ordered By: Shayy Lozada on 07-21-2023 Eosinophils/100 WBC (Bld) 0.1 % . [facility] Erythrocyte Sedimentation Ra meeta 07-21-2023 ESR (Bld) [Velocity] 13 mm/h Normal 0-19 [facility] Comment on above: Result Comment: PERF ORMED BY: [place] [address] PATHOLOGIST DESIGN COORDINATOR HELENA BEVERLY M.D. Performed By: #### L IPASE, CBC, CMP #### [address] Erythrocyte distribution wid th Auto (RBC) [Ratio]Ordered By: Shayy Lozada on 07-21-2023 Erythrocyte distribution width (RBC) [Ratio] 13.2 % 11.9-15.3 [facility] Erythrocyte sedimentation ra te by Photometric methodOrdered By: Shayy Lozada on 07-21-2023 ESR Photometric method (Bld) [Velocity] 13 mm/hr 0-19 [facility] Free T4 (Free Thyroxine)on 0 07-21-2023 Free T4 [Mass/Vol] 0.81 ng/dL Normal 0.61-1.12 [facility] Comment on above: Performed By: #### C MP, CBC, T4F, ESR, TSH3 #### [facility] [address] #### TESTF, DHEAS, ZAID #### [facility] , Globulin Calc (S) [Mass/Vol] Ordered By: Shayy Lozada on 07-21-2023 Globulin (S) [Mass/Vol] 2.3 g/dL [facility] Glucose [Mass/volume] in Ser um or PlasmaOrdered By: Shayy Lozada on 07-21-2023 Glucose [Mass/Vol] 101 mg/dL 70-100 [facility] Comment on above: ADA recommended refe rence rangeRandom Glucose Reference Range is dependent on time and content of last meal. Glucose of more than 200 mg/dL in a nonstressed, ambulatory subject supports the diagnosis of Diabetes Mellitus. Hematocrit Auto (Bld) [Volum e fraction]Ordered By: Shayy Lozada on 07-21-2023 Hematocrit (Bld) [Volume fraction] 36.6 % 34.0-46.4 [facility] Hemoglobin [Mass/volume] in BloodOrdered By: Shayy Lozada on 07-21-2023 Hemoglobin (Bld) [Mass/Vol] 12.5 g/dL 11.8-15.4 [facility] Leukocytes [#/volume] correc ji for nucleated erythrocytes in Blood by Automated counOrdered By: Shayy Lozada on 07-21-2023 WBC corrected for nucl RBC Auto (Bld) [#/Vol] 4.8 10*3/uL 3.8-11.6 [facility] Lymphocytes Auto (Bld) [#/Vo l]Ordered By: Shayy Lozada on 07-21-2023 Lymphocytes (Bld) [#/Vol] 1.8 10*3/uL 1.00-4.8 [facility] Lymphocytes/100 WBC Auto (Bl d)Ordered By: Shayy Lozada on 07-21-2023 Lymphocytes/100 WBC (Bld) 37.2 % . [facility] MCH Auto (RBC) [Entitic mass ]Ordered By: Shayy Lozada on 07-21-2023 MCH (RBC) [Entitic mass] 29.7 pg 24.7-34.3 [facility] MCHC Auto (RBC) [Mass/Vol]Or dered By: Shayy Lozada on 07-21-2023 MCHC (RBC) [Mass/Vol] 34.2 g/dL 32.0-35.0 [facility] MCV Auto (RBC) [Entitic vol] Ordered By: Shayy Lozada on 07-21-2023 MCV (RBC) [Entitic vol] 86.7 fL 80-100 [facility] Monocytes Auto (Bld) [#/Vol] Ordered By: Shayy Lozada on 07-21-2023 Monocytes (Bld) [#/Vol] 0.4 10*3/uL 0.0-0.8 [facility] Monocytes/100 WBC Auto (Bld) Ordered By: Shayy Lozada on 07-21-2023 Monocytes/100 WBC (Bld) 8.9 % . [facility] Neutrophils Auto (Bld) [#/Vo l]Ordered By: Shayy Lozada on 07-21-2023 Neutrophils (Bld) [#/Vol] 2.5 10*3/uL 1.8-7.7 [facility] Neutrophils/100 WBC Auto (Bl d)Ordered By: Shayy Lozada on 07-21-2023 Neutrophils/100 WBC (Bld) 52.6 % . [facility] No Panel InformationOrdered By: Shayy Lozada on 07-21-2023 Estimated GFR (CKD-EPI) > 60.0 mL/Min [facility] Creatinine Clearance (Chem N/A [facility] Nucleated erythrocytes [Pres ence] in Blood by Automated countOrdered By: Shayy Lozada on 07-21-2023 Nucleated RBC Auto Ql (Bld) 0.0 /100{WBC} 0-0.5 [facility] Platelet mean volume Auto (B ld) [Entitic vol]Ordered By: Shayy Lozada on 07-21-2023 Platelet mean volume (Bld) [Entitic vol] 7.5 fL 6.3-10.7 [facility] Platelets Auto (Bld) [#/Vol] Ordered By: Shayy Lozada on 07-21-2023 Platelets (Bld) [#/Vol] 259 10*3/uL 150-450 [facility] Potassium [Moles/volume] in Serum or PlasmaOrdered By: Shayy Lozada on 07-21-2023 Potassium [Moles/Vol] 4.4 mmol/L 3.5-5.1 [facility] Protein [Mass/volume] in Ser um or PlasmaOrdered By: Shayy Lozada on 07-21-2023 Protein [Mass/Vol] 6.6 g/dL 6.4-8.9 [facility] RBC Auto (Bld) [#/Vol]Ordere d By: Shayy Lozada on 07-21-2023 RBC (Bld) [#/Vol] 4.22 10*6/uL 3.60-5.00 [facility] Serum or plasma albumin/glob ulin mass ratioOrdered By: Shayy Lozada on 07-21-2023 Albumin/Globulin [Mass ratio] 1.9 {ratio} [facility] Serum or plasma anion gap de terminationOrdered By: Shayy Lozada on 07-21-2023 Anion gap [Moles/Vol] 9.6 mmol/L 6.0-15.0 [facility] Sodium [Moles/volume] in Ser um or PlasmaOrdered By: Shayy Lozada on 07-21-2023 Sodium [Moles/Vol] 143 mmol/L 136-145 [facility] Testosterone,Freeon 07-21-20 Testosterone,Free 1.0 pg/mL Normal 0.0-4.2 [facility] Comment on above: Result Comment: Perf ormed at: [facility] - [facility] [address] [id number] [place] Operator: Elizabeth Quezada MD, Phone: [phone] Performed By: #### L IPASE, CBC, CMP #### [facility] [address] [place] [address] Thyroid Stimulating Hormoneo n 07-21-2023 TSH Qn 0.39 m[IU]/L Low 0.45-5.33 [facility] Comment on above: Result Comment: PERF ORMED BY: [place] [address] PATHOLOGIST DESIGN COORDINATOR HELENA BEVERLY M.D. Performed By: #### C MP, CBC, T4F, ESR, TSH3 #### [facility] [address] [place] [place] [address] #### TESTF, DHEAS, ZAID #### [facility] , Thyrotropin [Units/volume] i n Serum or PlasmaOrdered By: Shayy Lozada on 07-21-2023 TSH Qn 0.39 m[IU]/L 0.45-5.33 [facility] Thyroxine (T4) free [Mass/vo lume] in Serum or PlasmaOrdered By: Shayy Lozada on 07-21-2023 Free T4 [Mass/Vol] 0.81 ng/dL 0.61-1.12 [facility] Urea nitrogen [Mass/volume] in Serum or PlasmaOrdered By: Shayy Lozada on 07-21-2023 Urea nitrogen [Mass/Vol] 12 mg/dL 06-22 [facility] WBC Auto (Bld) [#/Vol]Ordere d By: Shayy Lozada on 07-21-2023 WBC (Bld) [#/Vol] 4.8 10*3/uL 3.8-11.6 [facility] Office Visiton 06-02-2023 Follow-up visit [id number] Zakiya Cuello 1975 F Date Provider Department Center 06/02/2023 VICKY JIMÉNEZ ORTHO [facility]ORTHO Family History Problem Relation Age of Onset Diabetes Mother Diabetes Father Family Status - Relation Status Age at Mother Alive Father Alive Level of Service:57438 [place] OFFICE/OUTPATIENT NEW LOW MDM 30-44 MINUTES Reason for Visit and Comments: Pain [136] Normal [facility] Bilirubin Test strip Ql (U)O rdered By: Poli Vázquez on 03-31-2023 Bilirubin Ql (U) Negative Negative [facility] Color Auto (U)Ordered By: Frederick Vázquez on 03-31-2023 Color (U) Yellow Yellow [facility] Ketones Auto test strip (U) [Mass/Vol]Ordered By: Poli Vázquez on 03-31-2023 Ketones (U) [Mass/Vol] Negative Negative [facility] Nitrite Test strip Ql (U)Ord ered By: Poli Vázquez on 03-31-2023 Nitrite Ql (U) Negative Negative [facility] Protein Auto test strip (U) [Mass/Vol]Ordered By: Poli Vázquez on 03-31-2023 Protein (U) [Mass/Vol] Negative Negative [facility] Specific gravity Auto test s trip (U) [Rel density]Ordered By: Poli Vázquez on 03-31-2023 Specific gravity (U) [Rel density] 1.004 1.001-1.030 [facility] Urinalysison 03-31-2023 Appearance (U) Clear Normal Clear [facility] Comment on above: Order Comment: Name Collection Type:: Clean-Voided Midstream Performed By: #### L IPASE, CBC, CMP #### [facility] [address] [place] [id number] [place] Bilirubin,Urine Negative Normal Negative [facility] Comment on above: Order Comment: Name Collection Type:: Clean-Voided Midstream Performed By: #### L IPASE, CBC, CMP #### [facility] [address] [place] [id number] [place] Color (U) Yellow Normal [facility] Comment on above: Order Comment: Name Collection Type:: Clean-Voided Midstream Performed By: #### L IPASE, CBC, CMP #### [facility] [address] [place] [id number] [place] Glucose Ql (U) Normal Normal Normal [facility] Comment on above: Order Comment: Name Collection Type:: Clean-Voided Midstream Performed By: #### L IPASE, CBC, CMP #### [address] Ketones Ql (U) Negative Normal Negative [facility] Comment on above: Order Comment: Name Collection Type:: Clean-Voided Midstream Performed By: #### L IPASE, CBC, CMP #### [address] Leukocyte esterase Test strip Ql (U) Negative Normal Negative [facility] Comment on above: Order Comment: Name Collection Type:: Clean-Voided Midstream Performed By: #### L IPASE, CBC, CMP #### [address] Nitrite,Urine Negative Normal Negative [facility] Comment on above: Order Comment: Name Collection Type:: Clean-Voided Midstream Performed By: #### L IPASE, CBC, CMP #### [address] Occult Blood,Urine Negative Normal Negative [facility] Comment on above: Order Comment: Name Collection Type:: Clean-Voided Midstream Result Comment: PERF ORMED BY: [place] [address] PATHOLOGIST DESIGN COORDINATOR HELENA BEVERLY M.D. Performed By: #### L IPASE, CBC, CMP #### [address] pH (U) 6.5 [pH] Normal 5.0-9.0 [facility] Comment on above: Order Comment: Name Collection Type:: Clean-Voided Midstream Performed By: #### L IPASE, CBC, CMP #### [address] Protein,Urine Negative Normal Negative [facility] Comment on above: Order Comment: Name Collection Type:: Clean-Voided Midstream Performed By: #### L IPASE, CBC, CMP #### [address] Specificy Wren,Urine 1.004 Normal 1.001-1.030 [facility] Comment on above: Order Comment: Name Collection Type:: Clean-Voided Midstream Performed By: #### L IPASE, CBC, CMP #### [facility] [address] Urobilinogen,Urine Normal Normal Normal [facility] Comment on above: Order Comment: Name Collection Type:: Clean-Voided Midstream Performed By: #### L IPASE, CBC, CMP #### [facility] [address] Urine clarity by refractomet ry automatedOrdered By: Poli Vázquez on 03-31-2023 Clarity Refractometry automated (U) Clear Clear [facility] Urine glucose measurement by automated test strip (mass/volume)Ordered By: Poli Vázquez on 03-31-2023 Glucose Auto test strip (U) [Mass/Vol] Normal mg/dL Normal [facility] Urine hemoglobin detection b y automated test stripOrdered By: Poli Vázquez on 03-31-2023 Hemoglobin Auto test strip Ql (U) Negative Negative [facility] Urine leukocyte esterase det ection by automated test stripOrdered By: Poli Vázquez on 03-31-2023 Leukocyte esterase Auto test strip Ql (U) Negative Negative [facility] Urobilinogen Auto test strip (U) [Mass/Vol]Ordered By: Poli Vázquez on 03-31-2023 Urobilinogen (U) [Mass/Vol] Normal mg/dL Normal [facility] pH Auto test strip (U)Ordere d By: Poli Vázquez on 03-31-2023 pH (U) 6.5 [pH] 5.0-9.[address] [facility] [address] ABD/PELVIS WO CONon 03-25 CT [...] ADEN MASTERSON Date: 2023-03-25 14:39 Normal [facility] ER URINE PROFILEon 3 Bilirubin Ql (U) Negative Normal NEGATIVE [facility] Comment on above: Performed By: #### E BVPROF #### [facility] [address] [place] [address] Dr. Nahomi Arana Clarity (U) CLEAR Normal CLEAR [facility] Comment on above: Performed By: #### E BVPROF #### [facility] [address] [place] [address] Dr. Nahomi Arana Color (U) LT. YELLOW Normal YELLOW [facility] Comment on above: Performed By: #### E BVPROF #### [facility] [address] [place] [address] Dr. Nahomi Arana ERUAHD A micrscopic examination will be performed if indicated. Normal [facility] Comment on above: Performed By: #### E BVPROF #### [facility] [address] [place] [address] Dr. Nahomi Arana Glucose Ql (U) Negative Normal NEGATIVE [facility] Comment on above: Performed By: #### E BVPROF #### [facility] [address] [place] [address] Dr. Nahomi Arana Hemoglobin Ql (U) TRACE-INTACT Abnormal NEGATIVE [facility] Comment on above: Performed By: #### E BVPROF #### [facility] [address] [place] [address] Dr. Nahomi Arana Ketones Ql (U) Negative Normal NEGATIVE [facility] Comment on above: Performed By: #### E BVPROF #### [facility] [address] [place] [address] Dr. Nahomi Arana LEUKOCYTES Negative Normal NEGATIVE [facility] Comment on above: Performed By: #### E BVPROF #### [facility] [address] [place] [address] Dr. Nahomi Arana Nitrite Ql (U) Negative Normal NEGATIVE [facility] Comment on above: Performed By: #### E BVPROF #### [facility] [address] [place] [address] Dr. Nahomi Arana pH (U) 5.0 [pH] Normal 5-9 [facility] Comment on above: Performed By: #### E BVPROF #### [facility] [address] [place] [address] Dr. Nahomi Arana SPEC GRAVITY 1.030 Abnormal 1.005-<=1.02 5 [facility] Comment on above: Performed By: #### E BVPROF #### [facility] [address] [place] [address] Dr. Nahomi Arana UA PROTEIN Negative Normal NEGATIVE/ TRACE [facility] Comment on above: Performed By: #### E BVPROF #### [facility] [address] [place] [address] Dr. Nahomi Arana UR MICRO IND INDICATED Normal [facility] Comment on above: Performed By: #### E BVPROF #### [facility] [address] [place] [address] Dr. Nahomi Arana Urobilinogen Qn (U) 0.2 {Jesus'U}/dL Normal 0.2 - 1. 0 [facility] Comment on above: Performed By: #### E BVPROF #### [facility] [address] [place] [address] Dr. Nahomi Arana URINE MICROSCOPIC ONLYon BACTERIA NONE SEEN Normal NONE SEEN [facility] Comment on above: Performed By: #### E BVPROF #### [facility] [address] [place] [address] Dr. Nahomi Arana Bacteria identified Cx Nom (U) NOT INDICATED Normal [facility] Comment on above: Performed By: #### E BVPROF #### [facility] [address] [place] [address] Dr. Nahomi Arana CAST NONE SEEN Normal NONE SEEN [facility] Comment on above: Performed By: #### E BVPROF #### [facility] [address] [place] [address] Dr. Nahomi Arana Crystals LM Nom (Urine sed) NONE SEEN Normal NONE SEEN [facility] Comment on above: Performed By: #### E BVPROF #### [facility] [address] [place] [address] Dr. Nahomi Arana Epithelial cells LM Ql (Urine sed) FEW Abnormal NONE SEEN /RARE [facility] Comment on above: Performed By: #### E BVPROF #### [facility] [address] [place] [address] Dr. Nahomi Arana MUCOUS NONE SEEN Normal NONE SEEN [facility] Comment on above: Performed By: #### E BVPROF #### [facility] [address] [place] [address] Dr. Nahomi Arana RBC 0-2 Normal 0-2 [facility] Comment on above: Performed By: #### E BVPROF #### [facility] [address] [place] [address] Dr. Nahomi Arana WBC NONE SEEN Normal NONE SEEN [facility] Comment on above: Performed By: #### E BVPROF #### [facility] [address] [address] [address] Nahomi Arana MM screening mammo BI w/CADo n 11-13-2022 MM screening mammo BI w/CAD [facility] [place] [address] [place], [place] [id number] Mammography Report Signed Patient: Zakiya Cuello MR#: [id number] : 1975 Acct:[id number] Age/Sex: 46 / F ADM Date: 11/06/22 Loc: OR Room: Type: [facility] Attending Dr: Lake Jensen MD Copies [...] Licha Do M.D.11/13/2022 8:29 AM Dictation Location: [facility] Transcribed By: [facility] 11/13/22828 Dictated By: Licha Do MD 11/13/22825 Signed By: 11/13/22828 [facility] 09-11-2022 Cortisol 3.7 ug/dL Normal [facility] Comment on above: Result Comment: Sonido isol AM 6.2 - 19.4 Cortisol PM 2.3 - 11.9 Performed By: #### E BVPROF #### [facility] [address] [address] [address] Nahomi Arana BARRY-ZHANG VIRUS (EBV) AB PROFILEon 09-11-2022 EBV Ab VCA, IgG 129.0 U/mL Critically high 0.0-17.9 [facility] Comment on above: Result Comment: Nega tive <18.0 Equivocal 18.0 - 21.9 Positive >21.9 Performed By: #### E BVPROF #### [facility] [address] [place] [address] Dr. Nahomi Arana EBV Ab VCA, IgM <36.0 Normal 0.0-35.9 [facility] Comment on above: Result Comment: Nega tive <36.0 Equivocal 36.0 - 43.9 Positive >43.9 Performed By: #### E BVPROF #### [facility] [address] [address] [address] Nahomi Arana EBV Nuclear Antigen Ab, IgG 228.0 U/mL Critically high 0.0-17.9 [facility] Comment on above: Result Comment: Nega tive <18.0 Equivocal 18.0 - 21.9 Positive >21.9 Performed By: #### E BVPROF #### [facility] [address] [place] [address] Dr. Nahomi Arana Interpretation: Comment Normal [facility] Comment on above: Result Comment: EBV Interpretation [...] EBNA. Performed By: #### E BVPROF #### [facility] [address] [address] [address] Nahomi Arana FERRITINon 09-09-2022 Ferritin [Mass/Vol] 79.0 ng/mL Normal 6.2-137.0 [facility] Comment on above: Performed By: #### E BVPROF #### [facility] [address] [address] [address] Nahomi Arana VITAMIN B12on 09-09-2022 Cobalamin (Vitamin B12) [Mass/Vol] 612.0 pg/mL Normal 193.0-986.0 [facility] Comment on above: Performed By: #### E BVPROF #### [facility] [address] [address] [address] Nahomi Arana Albumin [Mass/volume] in Ser um or PlasmaOrdered By: Brendan Mitchell on 09-05-2022 Albumin [Mass/Vol] 3.5 g/dL 3.2-5.5 [facility] Basophils Auto (Bld) [#/Vol] Ordered By: Brendan Mitchell on 09-05-2022 Basophils (Bld) [#/Vol] 0.1 10*3/uL 0.0-0.2 [facility] Basophils/100 WBC Auto (Bld) Ordered By: Brendan Mitchell on 09-05-2022 Basophils/100 WBC (Bld) 1.0 % . [facility] Bilirubin Test strip Ql (U)O rdered By: Brendan Mitchell on 09-05-2022 Bilirubin Ql (U) Negative Negative [facility] Blood hemoglobin measurement (mass/volume)Ordered By: Brendan Mitchell on 09-05-2022 Hemoglobin (Bld) [Mass/Vol] 12.2 g/dL 11.8-15.4 [facility] Blood leukocytes automated c ount (number/volume)Ordered By: Brendan Mitchell on 09-05-2022 WBC (Bld) [#/Vol] 8.1 10*3/uL 4.5-11.[address] [facility] CT abdomen pelvis w conon CT abdomen pelvis w [address] [place] [address] CT Scan Report Signed Patient: Zakiya Cuello MR#: [id number] : 1975 Acct:[id number] Age/Sex: 46 / F ADM Date: 09/05/22 Loc: ER Room: Type: [facility] ER Attending Dr: Copies to: Brendan Mitchell [...] Garrison Gill M.D.09/05/2022 7:03 PM Dictation Location: [place] [address] Transcribed By: [facility] 09/05/221902 Dictated By: Garrison Gill DO 09/05/221900 Signed By: 09/05/221902 Normal [facility] Color Auto (U)Ordered By: Fish Mitchell on 09-05-2022 Color (U) Dark yellow Yellow [facility] Complete Blood Count Auto Di ffon 09-05-2022 Basophils (Bld) [#/Vol] 0.1 10*3/uL Normal 0.0-0.2 [facility] Comment on above: Result Comment: PERF ORMED BY: [place] [address] PATHOLOGIST DESIGN COORDINATOR HELENA BEVERLY M.D. Performed By: #### L IPASE, CBC, CMP #### [facility] [address] [place] [address] Basophils/100 WBC (Bld) 1.0 % Normal . [facility] Comment on above: Performed By: #### L IPASE, CBC, CMP #### [place] [address] [place] Eosinophils (Bld) [#/Vol] 0.2 10*3/uL Normal 0.0-0.45 [facility] Comment on above: Performed By: #### L IPASE, CBC, CMP #### [place] [address] [place] Eosinophils/100 WBC (Bld) 2.9 % Normal . [facility] Comment on above: Performed By: #### L IPASE, CBC, CMP #### [address] Erythrocyte distribution width (RBC) [Ratio] 13.7 % Normal 11.9-15.3 [facility] Comment on above: Performed By: #### L IPASE, CBC, CMP #### [address] Hematocrit (Bld) [Volume fraction] 36.0 % Normal 34.0-46.4 [facility] Comment on above: Performed By: #### L IPASE, CBC, CMP #### [facility] [address] [place] [address] [place] Hemoglobin (Bld) [Mass/Vol] 12.2 g/dL Normal 11.8-15.4 [facility] Comment on above: Performed By: #### L IPASE, CBC, CMP #### [facility] [address] [place] [address] [place] Lymphocytes (Bld) [#/Vol] 2.6 10*3/uL Normal 1.00-4.8 [facility] Comment on above: Performed By: #### L IPASE, CBC, CMP #### [address] Lymphocytes/100 WBC (Bld) 32.4 % Normal . [facility] Comment on above: Performed By: #### L IPASE, CBC, CMP #### [address] MCH (RBC) [Entitic mass] 29.9 pg Normal 24.7-34.3 [facility] Comment on above: Performed By: #### L IPASE, CBC, CMP #### [address] MCV (RBC) [Entitic vol] 88.6 fL Normal 80-100 [facility] Comment on above: Performed By: #### L IPASE, CBC, CMP #### [address] Mean Corpuscular HGB Conc 33.8 g/dL Normal 32.0-35.0 [facility] Comment on above: Performed By: #### L IPASE, CBC, CMP #### [place] [address] [place] Monocytes (Bld) [#/Vol] 0.6 10*3/uL Normal 0.0-0.8 [facility] Comment on above: Performed By: #### L IPASE, CBC, CMP #### [place] [address] [place] Monocytes/100 WBC (Bld) 7.6 % Normal . [facility] Comment on above: Performed By: #### L IPASE, CBC, CMP #### [place] [address] [place] Neutrophils (Bld) [#/Vol] 4.5 10*3/uL Normal 1.8-7.7 [facility] Comment on above: Performed By: #### L IPASE, CBC, CMP #### [place] [address] [place] Neutrophils/100 WBC (Bld) 56.1 % Normal . [facility] Comment on above: Performed By: #### L IPASE, CBC, CMP #### [address] Nucleated RBC/100 WBC (Bld) [Ratio] 0.0 % Normal 0-0.5 [facility] Comment on above: Performed By: #### L IPASE, CBC, CMP #### [address] Platelet mean volume (Bld) [Entitic vol] 7.4 fL Normal 6.3-10.7 [facility] Comment on above: Performed By: #### L IPASE, CBC, CMP #### [address] Platelets (Bld) [#/Vol] 319 10*3/uL Normal 150-450 [facility] Comment on above: Performed By: #### L IPASE, CBC, CMP #### [address] RBC (Bld) [#/Vol] 4.07 10*6/uL Normal 3.60-5.00 [facility] Comment on above: Performed By: #### L IPASE, CBC, CMP #### [address] WBC (Bld) [#/Vol] 8.1 10*3/uL Normal 4.5-11.0 [facility] Comment on above: Performed By: #### L IPASE, CBC, CMP #### [address] Comprehensive Metabolic Pane sonny 09-05-2022 Albumin [Mass/Vol] 3.5 g/dL Normal 3.2-5.5 [facility] Comment on above: Performed By: #### L IPASE, CBC, CMP #### [address] Albumin/Globulin [Mass ratio] 1.3 {ratio} Normal [facility] Comment on above: Performed By: #### L IPASE, CBC, CMP #### [facility] [address] [id number] [place] ALP [Catalytic activity/Vol] 46 U/L Normal 32-92 [facility] Comment on above: Performed By: #### L IPASE, CBC, CMP #### [facility] [address] [place] [address] [place] ALT [Catalytic activity/Vol] 22 U/L Normal 10-60 [facility] Comment on above: Performed By: #### L IPASE, CBC, CMP #### [facility] [address] [id number] [facility] Anion gap [Moles/Vol] 12.9 mmol/L Normal 6.0-15.0 [facility] Comment on above: Performed By: #### L IPASE, CBC, CMP #### [facility] [address] AST [Catalytic activity/Vol] 20 U/L Normal 10-42 [facility] Comment on above: Performed By: #### L IPASE, CBC, CMP #### [facility] [address] [place] [address] [place] Bilirubin [Mass/Vol] 0.3 mg/dL Normal 0.3-1.2 [facility] Comment on above: Performed By: #### L IPASE, CBC, CMP #### [facility] [address] [place] [address] [place] Calcium [Mass/Vol] 9.6 mg/dL Normal 8.2-10.2 [facility] Comment on above: Performed By: #### L IPASE, CBC, CMP #### [facility] [address] [id number] [place] Chloride [Moles/Vol] 102 mmol/L Normal 95-114 [facility] Comment on above: Performed By: #### L IPASE, CBC, CMP #### [facility] [address] [id number] [place] CO2 [Moles/Vol] 27.7 mmol/L Normal 22.0-30.0 [facility] Comment on above: Performed By: #### L IPASE, CBC, CMP #### [facility] [address] Creatinine [Mass/Vol] 0.73 mg/dL Normal 0.44-1.03 [facility] Comment on above: Performed By: #### L IPASE, CBC, CMP #### [facility] [address] Creatinine Clr Calc Pharmacy 96.11 [facility] Comment on above: Performed By: #### L IPASE, CBC, CMP #### [facility] [address] Estimated GFR ( [place] > 60 [facility] Comment on above: Result Comment: GFR estimated reference range: According to KDOQI guidelines, <60 ml/min/1.73m2 is sufficient to diagnose a patient with chronic kidney disease. Performed By: #### L IPASE, CBC, CMP #### [facility] [address] Estimated GFR (Non- Am > 60 [facility] Comment on above: Performed By: #### L IPASE, CBC, CMP #### [address] Globulin (S) [Mass/Vol] 2.7 g/dL Normal [facility] Comment on above: Performed By: #### L IPASE, CBC, CMP #### [address] Glucose [Mass/Vol] 115 mg/dL High 70-100 [facility] Comment on above: Result Comment: [place] Glucose Reference Range is dependent on time and content of last meal. Glucose of more than 200 mg/dL in a nonstressed, ambulatory subject supports the diagnosis of Diabetes Mellitus. ADA recommended reference range Performed By: #### L IPASE, CBC, CMP #### [address] Potassium [Moles/Vol] 3.6 mmol/L Normal 3.5-5.1 [facility] Comment on above: Performed By: #### L IPASE, CBC, CMP #### [facility] [address] [id number] [place] Protein [Mass/Vol] 6.2 g/dL Normal 6.1-7.9 [facility] Comment on above: Performed By: #### L IPASE, CBC, CMP #### [facility] [address] [id number] [place] Sodium [Moles/Vol] 139 mmol/L Normal 136-146 [facility] Comment on above: Performed By: #### L IPASE, CBC, CMP #### [facility] [address] [place] [address] [place] Urea nitrogen [Mass/Vol] 12 mg/dL Normal 9-23 [facility] Comment on above: Performed By: #### L IPASE, CBC, CMP #### [facility] [address] [place] [address] [place] Creatinine and Glomerular fi ltration rate.predicted panel (S/P/Bld)Ordered By: Brendan Mitchell on 09-05-2022 Creatinine [Mass/Vol] 0.73 mg/dL 0.44-1.03 [facility] ECG 12 lead ECGon 09-05-2022 ECG 12 lead ECG [facility] [place] [address] [place] [address] Electrocardiograph Report Signed Patient: Zakiya Cuello MR#: [id number] : 1975 Acct:[id number] Age/Sex: 46 / F ADM Date: 09/05/22 Loc: ER Room: Type: [facility] ER Attending Dr: Ordering Provider: Brendan [...] was found Confirmed by Brendan Mitchell DO ([id number]) on 09/05/2022 8:06:15 PM Referred By: Electronically Signed By:Brendan Mitchell DO Transcribed By: [facility] Signed By Brendan Mitchell DO 2 2005 Normal [facility] Eosinophils Auto (Bld) [#/Vo l]Ordered By: Brendan Mitchell on 09-05-2022 Eosinophils (Bld) [#/Vol] 0.2 10*3/uL 0.0-0.45 [facility] Eosinophils/100 WBC Auto (Bl d)Ordered By: Brendan Mitchell on 09-05-2022 Eosinophils/100 WBC (Bld) 2.9 % . [facility] Erythrocyte distribution wid th Auto (RBC) [Ratio]Ordered By: Brendan Mitchell on 09-05-2022 Erythrocyte distribution width (RBC) [Ratio] 13.7 % 11.9-15.3 [facility] Estimated glomerular filtrat ion rate (GFR) non- AmericanOrdered By: Brendan Mitchell on 09-05-2022 GFR/1.73 sq M.predicted among non-blacks MDRD (S/P/Bld) [Vol rate/Area] > 60 mL/Min [facility] Globulin Calc (S) [Mass/Vol] Ordered By: Brendan Mitchell on 09-05-2022 Globulin (S) [Mass/Vol] 2.7 g/dL [facility] Hematocrit Auto (Bld) [Volum e fraction]Ordered By: Brendan Mitchell on 09-05-2022 Hematocrit (Bld) [Volume fraction] 36.0 % 34.0-46.4 [facility] Ketones Auto test strip (U) [Mass/Vol]Ordered By: Brendan Mitchell on 09-05-2022 Ketones (U) [Mass/Vol] Negative Negative [facility] - Chemistry and C hemistry - challengeOrdered By: Brendan Mitchell on 09-05-2022 Lipase [Catalytic activity/Vol] 38.0 U/L 22-51 [facility] - Hematology and Cell countsOrdered By: Brendan Mitchell on 09-05-2022 Nucleated RBC/100 WBC (Bld) [Ratio] 0.0 % 0-0.5 [facility] Lipaseon 09-05-2022 Lipase [Catalytic activity/Vol] 38.0 U/L Normal 22-51 [facility] Comment on above: Result Comment: PERF ORMED BY: [place] [address] PATHOLOGIST DESIGN COORDINATOR HELENA BEVERLY M.D. Performed By: #### L IPASE, CBC, CMP #### [facility] [address] Lymphocytes Auto (Bld) [#/Vo l]Ordered By: Brendan Mitchell on 09-05-2022 Lymphocytes (Bld) [#/Vol] 2.6 10*3/uL 1.00-4.8 [facility] Lymphocytes/100 WBC Auto (Bl d)Ordered By: Brendan Mitchell on 09-05-2022 Lymphocytes/100 WBC (Bld) 32.4 % . [facility] MCH Auto (RBC) [Entitic mass ]Ordered By: Brendan Mitchell on 09-05-2022 MCH (RBC) [Entitic mass] 29.9 pg 24.7-34.3 [facility] MCHC Auto (RBC) [Mass/Vol]Or dered By: Brendan Mitchell on 09-05-2022 MCHC (RBC) [Mass/Vol] 33.8 g/dL 32.0-35.0 [facility] MCV Auto (RBC) [Entitic vol] Ordered By: Brendan Mitchell on 09-05-2022 MCV (RBC) [Entitic vol] 88.6 fL 80-100 [facility] Monocytes Auto (Bld) [#/Vol] Ordered By: Brendan Mitchell on 09-05-2022 Monocytes (Bld) [#/Vol] 0.6 10*3/uL 0.0-0.8 [facility] Monocytes/100 WBC Auto (Bld) Ordered By: Brendan Mitchell on 09-05-2022 Monocytes/100 WBC (Bld) 7.6 % . [facility] Neutrophils Auto (Bld) [#/Vo l]Ordered By: Brendan Mitchell on 09-05-2022 Neutrophils (Bld) [#/Vol] 4.5 10*3/uL 1.8-7.7 [facility] Neutrophils/100 WBC Auto (Bl d)Ordered By: Brendan Mitchell on 09-05-2022 Neutrophils/100 WBC (Bld) 56.1 % . [facility] Nitrite Test strip Ql (U)Ord ered By: Brendan Mitchell on 09-05-2022 Nitrite Ql (U) Negative Negative [facility] No Panel InformationOrdered By: Brendan Mitchell on 09-05-2022 Estimated GFR () > 60 mL/Min [facility] Comment on above: GFR estimated refere nce range: According to KDOQI guidelines, <60 ml/min/1.73m2 is sufficient to diagnose a patient with chronic kidney disease. Pharmacy Creatinine Clearance (Chem 96.11 [facility] Platelet mean volume Auto (B ld) [Entitic vol]Ordered By: Brendan Mitchell on 09-05-2022 Platelet mean volume (Bld) [Entitic vol] 7.4 fL 6.3-10.7 [facility] Platelets Auto (Bld) [#/Vol] Ordered By: Brendan Mitchell on 09-05-2022 Platelets (Bld) [#/Vol] 319 10*3/uL 150-450 [facility] Protein Auto test strip (U) [Mass/Vol]Ordered By: Brendan Mitchell on 09-05-2022 Protein (U) [Mass/Vol] Negative Negative [facility] Protein [Mass/volume] in Ser um or PlasmaOrdered By: Brendan Mitchell on 09-05-2022 Protein [Mass/Vol] 6.2 g/dL 6.1-7.9 [facility] RBC Auto (Bld) [#/Vol]Ordere d By: Brendan Mitchell on 09-05-2022 RBC (Bld) [#/Vol] 4.07 10*6/uL 3.60-5.00 [facility] Serum or plasma alanine greene otransferase measurement without P-5'-P (enzymatic activiOrdered By: Brendan Mitchell on 09-05-2022 ALT No additional P-5'-P [Catalytic activity/Vol] 22 U/L 10-60 [facility] Serum or plasma albumin/glob ulin mass ratioOrdered By: Brendan Mitchell on 09-05-2022 Albumin/Globulin [Mass ratio] 1.3 {ratio} [facility] Serum or plasma alkaline rich sphatase measurement (enzymatic activity/volume)Ordered By: Brendan Mitchell on 09-05-2022 ALP [Catalytic activity/Vol] 46 U/L 32-92 [facility] Serum or plasma anion gap de terminationOrdered By: Brendan Mitchell on 09-05-2022 Anion gap [Moles/Vol] 12.9 mmol/L 6.0-15.0 [facility] Serum or plasma aspartate am inotransferase measurement (enzymatic activity/volume)Ordered By: Brendan Mitchell on 09-05-2022 AST [Catalytic activity/Vol] 20 U/L 10-42 [facility] Serum or plasma calcium michell urement (mass/volume)Ordered By: Brendan Mitchell on 09-05-2022 Calcium [Mass/Vol] 9.6 mg/dL 8.2-10.2 [facility] Serum or plasma chloride amber surement (moles/volume)Ordered By: Brendan Mitchell on 09-05-2022 Chloride [Moles/Vol] 102 mmol/L 95-114 [facility] Serum or plasma glucose michell urement (mass/volume)Ordered By: Brendan Mitchell on 09-05-2022 Glucose [Mass/Vol] 115 mg/dL 70-100 [facility] Comment on above: ADA recommended refe rence rangeRandom Glucose Reference Range is dependent on time and content of last meal. Glucose of more than 200 mg/dL in a nonstressed, ambulatory subject supports the diagnosis of Diabetes Mellitus. Serum or plasma potassium me asurement (moles/volume)Ordered By: Brendan Mitchell on 09-05-2022 Potassium [Moles/Vol] 3.6 mmol/L 3.5-5.1 [facility] Serum or plasma sodium measu rement (moles/volume)Ordered By: Brendan Mitchell on 09-05-2022 Sodium [Moles/Vol] 139 mmol/L 136-146 [facility] Serum or plasma total biliru bin measurement (mass/volume)Ordered By: Brendan Mitchell on 09-05-2022 Bilirubin [Mass/Vol] 0.3 mg/dL 0.3-1.2 [facility] Serum or plasma total carbon dioxide measurement (moles/volume)Ordered By: Brendan Mitchell on 09-05-2022 CO2 [Moles/Vol] 27.7 mmol/L 22.0-30.0 [facility] Serum or plasma urea nitroge n measurement (mass/volume)Ordered By: Brendan Mitchell on 09-05-2022 Urea nitrogen [Mass/Vol] 12 mg/dL 08-21 [facility] Specific gravity Auto test s trip (U) [Rel density]Ordered By: Brendan Mitchell on 09-05-2022 Specific gravity (U) [Rel density] 1.022 1.001-1.030 [facility] Urinalysison 09-05-2022 Appearance (U) Clear Normal Clear [facility] Comment on above: Order Comment: Name Collection Type:: Clean-Voided Midstream Performed By: #### U A #### [facility] [address] [place] [address] [place] Bilirubin,Urine Negative Normal Negative [facility] Comment on above: Order Comment: Name Collection Type:: Clean-Voided Midstream Performed By: #### U A #### [facility] [address] [place] [address] [place] Color (U) Dark Yellow Critically abnormal Yellow [facility] Comment on above: Order Comment: Name Collection Type:: Clean-Voided Midstream Performed By: #### U A #### [facility] [address] [id number] [place] Glucose Ql (U) Normal Normal Normal [facility] Comment on above: Order Comment: Name Collection Type:: Clean-Voided Midstream Performed By: #### U A #### [facility] [address] [id number] [place] Ketones Ql (U) Negative Normal Negative [facility] Comment on above: Order Comment: Name Collection Type:: Clean-Voided Midstream Performed By: #### U A #### [facility] [address] [place] [address] Leukocyte esterase Test strip Ql (U) Negative Normal Negative [facility] Comment on above: Order Comment: Name Collection Type:: Clean-Voided Midstream Performed By: #### U A #### [address] Nitrite,Urine Negative Normal Negative [facility] Comment on above: Order Comment: Name Collection Type:: Clean-Voided Midstream Performed By: #### U A #### [address] Occult Blood,Urine Negative Normal Negative [facility] Comment on above: Order Comment: Name Collection Type:: Clean-Voided Midstream Result Comment: PERF ORMED BY: [place] [address] PATHOLOGIST DESIGN COORDINATOR HELENA BEVERLY M.D. Performed By: #### U A #### [address] pH (U) 6.5 [pH] Normal 5.0-9.0 [facility] Comment on above: Order Comment: Name Collection Type:: Clean-Voided Midstream Performed By: #### U A #### [address] Protein,Urine Negative Normal Negative [facility] Comment on above: Order Comment: Name Collection Type:: Clean-Voided Midstream Performed By: #### U A #### [address] Specificy Wren,Urine 1.022 Normal 1.001-1.030 [facility] Comment on above: Order Comment: Name Collection Type:: Clean-Voided Midstream Performed By: #### U A #### [address] Urobilinogen,Urine Normal Normal Normal [facility] Comment on above: Order Comment: Name Collection Type:: Clean-Voided Midstream Performed By: #### U A #### [address] [id number] [place] Urine clarity by refractomet ry automatedOrdered By: Brendan Mitchell on 09-05-2022 Clarity Refractometry automated (U) Clear Clear [facility] Urine glucose measurement by automated test strip (mass/volume)Ordered By: Brendan Mitchell on 09-05-2022 Glucose Auto test strip (U) [Mass/Vol] Normal mg/dL Normal [facility] Urine hemoglobin detection b y automated test stripOrdered By: Brendan Mitchell on 09-05-2022 Hemoglobin Auto test strip Ql (U) Negative Negative [facility] Urine leukocyte esterase det ection by automated test stripOrdered By: Brendan Mitchell on 09-05-2022 Leukocyte esterase Auto test strip Ql (U) Negative Negative [facility] Urobilinogen Auto test strip (U) [Mass/Vol]Ordered By: Brendan Mitchell on 09-05-2022 Urobilinogen (U) [Mass/Vol] Normal mg/dL Normal [facility] pH Auto test strip (U)Ordere d By: Brendan Mitchell on 09-05-2022 pH (U) 6.5 [pH] 5.0-9.0 [facility] INSULINon 09-03-2022 Insulin 15.6 uIU/mL Normal 2.6-24.9 [facility] Comment on above: Performed By: #### I NSULIN #### [facility] [address] [place] [address] Dr. Nahomi Arana CBC AUTO DIFFon 09-02-2022 BASO # 0.0 103/ul Normal 0.0-0.1 [facility] Comment on above: Performed By: #### E BVPROF #### [facility] [address] [place] [address] Dr. Nahomi Arana Basophils/100 WBC (Bld) 0.5 % Normal 0.2-2.0 [facility] Comment on above: Performed By: #### E BVPROF #### [facility] [address] [place] [address] Dr. Nahomi Arana EO # 0.2 103/ul Normal 0.0-0.7 [facility] Comment on above: Performed By: #### E BVPROF #### [facility] [address] [place] [address] Dr. Nahomi Arana Eosinophils/100 WBC (Bld) 2.2 % Normal 0.9-7.0 [facility] Comment on above: Performed By: #### E BVPROF #### [facility] [address] [place] [address] Dr. Nahomi Arana Erythrocyte distribution width (RBC) [Ratio] 13.2 % Normal 11.0-15.0 [facility] Comment on above: Performed By: #### E BVPROF #### [facility] [address] [place] [address] Dr. Nahomi Arana Hematocrit (Bld) [Volume fraction] 39.3 % Normal 36.0-48.0 [facility] Comment on above: Performed By: #### E BVPROF #### [facility] [address] [place] [address] Dr. Nahomi Arana Hemoglobin (Bld) [Mass/Vol] 13.0 g/dL Normal 12.0-16.0 [facility] Comment on above: Performed By: #### E BVPROF #### [facility] [address] [place] [address] Dr. Nahomi Arana IG # 0.02 10e3/ul Normal 0.00-0.03 [facility] Comment on above: Performed By: #### E BVPROF #### [facility] [address] [place] [address] Dr. Nahomi Arana IG % 0.2 % Normal 0.0-0.5 [facility] Comment on above: Performed By: #### E BVPROF #### [facility] [address] [place] [address] Dr. Nahomi Arana LYMPH # 2.2 103/ul Normal 1.2-3.8 [facility] Comment on above: Performed By: #### E BVPROF #### [facility] [address] [place] [address] Dr. Nahomi Arana Lymphocytes/100 WBC (Bld) 25.7 % Normal 20.5-60.0 [facility] Comment on above: Performed By: #### E BVPROF #### [facility] [address] [place] [address] Dr. Nahomi Arana MANUAL DIFF REQ NO Normal [facility] Comment on above: Performed By: #### E BVPROF #### [facility] [address] [place] [address] Dr. Nahomi Arana MCH (RBC) [Entitic mass] 30.0 pg Normal 26.7-34.0 [facility] Comment on above: Performed By: #### E BVPROF #### [facility] [address] [place] [address] Dr. Nahomi Arana MCHC (RBC) [Mass/Vol] 33.1 g/dL Normal 29.9-35.2 [facility] Comment on above: Performed By: #### E BVPROF #### [facility] [address] [place] [address] Dr. Nahomi Arana MCV (RBC) [Entitic vol] 90.6 fL Normal 81.0-99.0 [facility] Comment on above: Performed By: #### E BVPROF #### [facility] [address] [place] [address] Dr. Nahomi Arana MONO # 0.5 103/ul Normal 0.3-0.8 [facility] Comment on above: Performed By: #### E BVPROF #### [facility] [address] [place] [address] Dr. Nahomi Arana Monocytes/100 WBC (Bld) 5.8 % Normal 1.7-12.0 [facility] Comment on above: Performed By: #### E BVPROF #### [facility] [address] [place] [address] Dr. Nahomi Arana NEUT # 5.6 103/ul Normal 1.4-6.5 [facility] Comment on above: Performed By: #### E BVPROF #### [facility] [address] [place] [address] Dr. Nahomi Arana Neutrophils/100 WBC (Bld) 65.6 % Normal 43.0-75.0 [facility] Comment on above: Performed By: #### E BVPROF #### [facility] [address] [place] [address] Dr. Nahomi Arana Platelet mean volume (Bld) [Entitic vol] 9.1 fL Critically low 9.5-13.5 [facility] Comment on above: Performed By: #### E BVPROF #### [facility] [address] [place] [address] Dr. Nahomi Arana PLT 340 103/ul Normal 150-450 [facility] Comment on above: Performed By: #### E BVPROF #### [facility] [address] [place] [address] Dr. Nahomi Arana RBC 4.34 106/ul Normal 4.20-5.40 [facility] Comment on above: Performed By: #### E BVPROF #### [facility] [address] [place] [address] Dr. Nahomi Arana WBC 8.5 103/ul Normal 4.0-11.0 [facility] Comment on above: Performed By: #### E BVPROF #### [facility] [address] [place] [address] Dr. Nahomi Arana CULTURE URINEon 09-02-2022 CULTURE URINE Culture Observations: LIGHT GROWTH OF MIXED GENITAL TOMMY. NO POTENTIAL PATHOGENS SEEN. Normal [facility] Comment on above: Performed By: #### E BVPROF #### [facility] [address] [place] [address] Dr. Nahomi Arana FREE THYROXINE INDEX T7on FTI 2.83 Normal 1.30-4.50 [facility] Comment on above: Performed By: #### C MP, LIPID, TSH, T7 #### [facility] [address] [place] [address] Dr. Nahomi Arana T3U 26.0 % Critically low 30.0-39.0 [facility] Comment on above: Performed By: #### C MP, LIPID, TSH, T7 #### [facility] [address] [place] [address] Dr. Nahomi Arana T4 [Mass/Vol] 10.90 ug/dL Normal 4.80-13.90 [facility] Comment on above: Performed By: #### C MP, LIPID, TSH, T7 #### [facility] [address] [place] [address] Dr. Nahomi Arana GLYCOHEMOGLOBIN A1Con 2021 ADA RECOMMENDATION SEE BELOW Normal [facility] Comment on above: Result Comment: ADA RECOMMENDED LIMIT 4.0 - 6.0 ADA THERAPEUTIC TARGET < 7.0 ACTION SUGGESTED > 7.0 Performed By: #### E BVPROF #### [facility] [address] [place] [address] Dr. Nahomi Arana Glucose [Mass/Vol] 108 mg/dL Normal [facility] Comment on above: Performed By: #### E BVPROF #### [facility] [address] [place] [address] Dr. Nahomi Arana HbA1c (Bld) [Mass fraction] 5.4 % Normal 4.5-6.2 [facility] Comment on above: Performed By: #### E BVPROF #### [facility] [address] [place] [address] Dr. Nahomi Arana IRONon 09-02-2022 Iron [Mass/Vol] 84.0 ug/dL Normal 50.0-170.0 [facility] Comment on above: Performed By: #### I ALISHA CHÁVEZ #### [facility] [address] [place] [address] Dr. Nahomi Arana LIPID PROFILEon 09-02-2022 CHOL-HDL RATIO NORM SEE BELOW Normal [facility] Comment on above: Result Comment: 3.3 - 4.4 LOW RISK 4.4 - 7.1 AVERAGE RISK 7.1 - 11.0 MODERATE RISK >11.0 HIGH RISK Performed By: #### C MP, LIPID, TSH, T7 #### [facility] [address] [place] [address] Dr. Nahomi Arana Cholesterol [Mass/Vol] 201 mg/dL Critically high <=200 [facility] Comment on above: Performed By: #### C MP, LIPID, TSH, T7 #### [facility] [address] [address] [address] Nahomi Arana Cholesterol in HDL [Mass/Vol] 57 mg/dL Normal 40-60 [facility] Comment on above: Performed By: #### C MP, LIPID, TSH, T7 #### [facility] [address] [address] [address] Nahomi Arana Cholesterol in LDL [Mass/Vol] 101.6 mg/dL Normal [facility] Comment on above: Performed By: #### C MP, LIPID, TSH, T7 #### [facility] [address] [address] [address] Nahomi Arana Cholesterol.total/Cholest damion in HDL [Mass ratio] 3.5 {ratio} Normal [facility] Comment on above: Performed By: #### C MP, LIPID, TSH, T7 #### [facility] [address] [address] [address] Nahomi Arana HDL NORMAL > or = 60 mg/dl - LOW CARDIOVASCULAR RISK <40 mg/dl - HIGH CARDIOVASCULAR RISK Normal [facility] Comment on above: Performed By: #### C MP, LIPID, TSH, T7 #### [facility] [address] [address] [address] Nahomi Arana LDL CALC NORMAL SEE BELOW Normal [facility] Comment on above: Result Comment: <100 mg/dl OPTIMAL 100 - 129 mg/dl NEAR OR ABOVE OPTIMAL 130 - 159 mg/dl BORDERLINE HIGH 160 - 189 mg/dl HIGH >190 mg/dl VERY HIGH Performed By: #### C MP, LIPID, TSH, T7 #### [facility] [address] [address] [address] Nahomi Arana Triglyceride [Mass/Vol] 212 mg/dL Critically high <=150 [facility] Comment on above: Performed By: #### C MP, LIPID, TSH, T7 #### [facility] [address] [address] [address] Nahomi Arana VLDL CALC 42.4 mg/dL Normal [facility] Comment on above: Performed By: #### C MP, LIPID, TSH, T7 #### [facility] [address] [address] [address] Nahomi Arana PROF 14(COMP METB)on 022 Albumin [Mass/Vol] 3.7 g/dL Normal 3.4-5.0 [place] Comment on above: Performed By: #### C MP, LIPID, TSH, T7 #### [facility] [address] [address] [address] Nahomi Arana Albumin/Globulin [Mass ratio] 1.1 {ratio} Normal [facility] Comment on above: Performed By: #### C MP, LIPID, TSH, T7 #### [facility] [address] [address] [address] Nahomi Arana ALP [Catalytic activity/Vol] 59 U/L Normal 46-116 [facility] Comment on above: Performed By: #### C MP, LIPID, TSH, T7 #### [facility] [address] [place] [address] Dr. Nahomi Arana ALT [Catalytic activity/Vol] 26 U/L Normal 14-59 [facility] Comment on above: Performed By: #### C MP, LIPID, TSH, T7 #### [facility] [address] [address] [address] Nahomi Arana Anion gap [Moles/Vol] 8.6 mmol/L Normal [facility] Comment on above: Performed By: #### C MP, LIPID, TSH, T7 #### [facility] [address] [address] [address] Nahomi Arana AST [Catalytic activity/Vol] 13 U/L Critically low 15-37 [facility] Comment on above: Performed By: #### C MP, LIPID, TSH, T7 #### [facility] [address] [address] [address] Nahomi Arana Bilirubin [Mass/Vol] 0.4 mg/dL Normal 0.2-1.0 [facility] Comment on above: Performed By: #### C MP, LIPID, TSH, T7 #### [facility] [address] [address] [address] Nahomi Arana Calcium [Mass/Vol] 9.4 mg/dL Normal 8.5-10.1 [place] Comment on above: Performed By: #### C MP, LIPID, TSH, T7 #### [facility] [address] [address] [address] Nahomi Arana Chloride [Moles/Vol] 104 mmol/L Normal 98-107 [facility] Comment on above: Performed By: #### C MP, LIPID, TSH, T7 #### [facility] [address] [address] [address] Nahomi Arana CO2 [Moles/Vol] 31.5 mmol/L Normal 21.0-32.0 [facility] Comment on above: Performed By: #### C MP, LIPID, TSH, T7 #### [facility] [address] [place] [address] Dr. Nahomi Arana Creatinine [Mass/Vol] 0.80 mg/dL Normal 0.55-1.02 [facility] Comment on above: Performed By: #### C MP, LIPID, TSH, T7 #### [facility] [address] [place] [address] Dr. Nahomi Arana EGFR-AF PALESTINIAN >60 Normal >=60 [facility] Comment on above: Performed By: #### C MP, LIPID, TSH, T7 #### [facility] [address] [place] [address] Dr. Nahomi Arana EGFR-NON AF PALESTINIAN >60 Normal >=60 [facility] Comment on above: Performed By: #### C MP, LIPID, TSH, T7 #### [facility] [address] [place] [address] Dr. Nahomi Arana Globulin (S) [Mass/Vol] 3.5 g/dL Normal T [facility] Comment on above: Performed By: #### C MP, LIPID, TSH, T7 #### [facility] [address] [place] [address] Dr. Nahomi Arana Glucose [Mass/Vol] 96 mg/dL Normal 74-106 [facility] Comment on above: Performed By: #### C MP, LIPID, TSH, T7 #### [facility] [address] [address] [address] Nahomi Arana Potassium [Moles/Vol] 4.1 mmol/L Normal 3.5-5.1 [facility] Comment on above: Performed By: #### C MP, LIPID, TSH, T7 #### [facility] [address] [place] [address] Dr. Nahomi Arana Protein [Mass/Vol] 7.2 g/dL Normal 6.4-8.2 [facility] Comment on above: Performed By: #### C MP, LIPID, TSH, T7 #### [facility] [address] [place] [address] Dr. Nahomi Arana Sodium [Moles/Vol] 140 mmol/L Normal 136-145 [place] Comment on above: Performed By: #### C MP, LIPID, TSH, T7 #### [facility] [address] [place] [address] Dr. Nahomi Arana Urea nitrogen [Mass/Vol] 12.0 mg/dL Normal 7.0-18.0 [facility] Comment on above: Performed By: #### C MP, LIPID, TSH, T7 #### [facility] [address] [address] [address] Nahomi Arana Urea nitrogen/Creatinine [Mass ratio] 15.0 mg/mg Normal [facility] Comment on above: Performed By: #### C MP, LIPID, TSH, T7 #### [facility] [address] [place] [address] Dr. Nahomi Arana TSHon 09-02-2022 TSH 0.743 uIU/mL Normal 0.358-3.740 [facility] Comment on above: Performed By: #### C MP, LIPID, TSH, T7 #### [facility] [address] [place] [address] Dr. Nahomi Arana UA RANDOM W/MICROSCOPICon BACTERIA TRACE Abnormal NONE SEEN [facility] Comment on above: Performed By: #### U AMIC #### [facility] [address] [place] [address] Dr. Nahomi Arana Bilirubin Ql (U) Negative Normal NEGATIVE [facility] Comment on above: Performed By: #### U AMIC #### [facility] [address] [address] [address] Nahomi Arana CAST NONE SEEN Normal NONE SEEN [facility] Comment on above: Performed By: #### U AMIC #### [facility] [address] [address] [address] Nahomi Arana Clarity (U) CLEAR Normal CLEAR [facility] Comment on above: Performed By: #### U AMIC #### [facility] [address] [address] [address] Nahomi Arana Color (U) YELLOW Normal YELLOW [facility] Comment on above: Performed By: #### U AMIC #### [facility] [address] [address] [address] Nahomi Arana Crystals LM Nom (Urine sed) NONE SEEN Normal NONE SEEN [facility] Comment on above: Performed By: #### U AMIC #### [facility] [address] [address] [address] Nahomi Arana Epithelial cells LM Ql (Urine sed) RARE Normal NONE SEEN /RARE [facility] Comment on above: Performed By: #### U AMIC #### [facility] [address] [address] [address] Nahomi Arana Glucose Ql (U) Negative Normal NEGATIVE [facility] Comment on above: Performed By: #### U AMIC #### [facility] [address] [address] [address] Nahomi Arana Hemoglobin Ql (U) Negative Normal NEGATIVE The [facility] Comment on above: Performed By: #### U AMIC #### [facility] [address] [address] [address] Nahomi Arana Ketones Ql (U) Negative Normal NEGATIVE [facility] Comment on above: Performed By: #### U AMIC #### [facility] [address] [address] [address] Nahomi Arana LEUKOCYTES Negative Normal NEGATIVE [facility] Comment on above: Performed By: #### U AMIC #### [facility] [address] [address] [address] Nahomi Arana MUCOUS TRACE Abnormal NONE SEEN [facility] Comment on above: Performed By: #### U AMIC #### [facility] [address] [address] [address] Nahomi Arana Nitrite Ql (U) Negative Normal NEGATIVE [facility] Comment on above: Performed By: #### U AMIC #### [facility] [address] [address] [address] Nahomi Arana pH (U) 5.5 [pH] Normal 5-9 [facility] Comment on above: Performed By: #### U AMIC #### [facility] [address] [place] [address] Dr. Nahomi Arana RBC 0-2 Normal 0-2 [facility] Comment on above: Performed By: #### U AMIC #### [facility] [address] [place] [address] Dr. Nahomi Arana SPEC GRAVITY >=1.030 Abnormal 1.005-<=1.02 5 [facility] Comment on above: Performed By: #### U AMIC #### [facility] [address] [place] [address] Dr. Nahomi Arana UA PROTEIN Negative Normal NEGATIVE/ TRACE [facility] Comment on above: Performed By: #### U AMIC #### [facility] [address] [place] [address] Dr. Nahomi Arana Urobilinogen Qn (U) 0.2 {Jesus'U}/dL Normal 0.2 - 1. 0 [facility] Comment on above: Performed By: #### U AMIC #### [facility] [address] [place] [address] Dr. Nahomi Arana WBC 0-2 Abnormal NONE SEEN [facility] Comment on above: Performed By: #### U AMIC #### [facility] [address] [place] [address] Dr. Nahomi Arana VITAMIN D 25 OHon 09-02-2022 VIT D 25-OH 29.5 ng/mL Normal [facility] Comment on above: Performed By: #### I KYLER, VITAD #### [facility] [address] [place] [address] Dr. Nahomi Arana VIT D RANGES SEE BELOW Normal [facility] Comment on above: Result Comment: <20 ng/mL Vit D deficient 20 - <30 ng/mL Vit D insufficient 30 - 100 ng/mL Vit D sufficient >100 ng/mL Potential Toxicity Performed By: #### I KYLER VITAD #### [facility] [address] [place] [address] Dr. Nahomi Arana PAP ACOG PANEL 2: 28 to 63on 07-10-2022 . . Normal [facility] Comment on above: Result Comment: Perf ormed at: WB Performed By: #### E BVPROF #### [facility] [address] [place] [place] [address] Dr. Nahomi Arana Age Gdln ACOG Testing 30-65 Normal [facility] Comment on above: Performed By: #### E BVPROF #### [facility] [address] [place] [address] Dr. Nahomi Arana DIAGNOSIS: Comment Normal [facility] Comment on above: Result Comment: NEGA TIVE FOR INTRAEPITHELIAL LESION OR MALIGNANCY. Performed at: WB Performed By: #### E BVPROF #### [facility] [address] [place] [address] Dr. Nahomi Arana HPV Aptima Negative Normal Negative [facility] Comment on above: Result Comment: This nucleic acid amplification test detects fourteen high-risk HPV types (16,18,31,33,35,39,45,51,52,56,58,59,66,68) without differentiation. Performed at: =G Performed By: #### E BVPROF #### [facility] [address] [place] [address] Dr. Nahomi Arana Methodology: Comment Normal [facility] Comment on above: Result Comment: This liquid based ThinPrep(R) pap test was screened with the use of an image guided system. Performed at: WB Performed By: #### E BVPROF #### [facility] [address] [place] [address] Dr. Nahomi Arana Note: Comment Normal [facility] Comment on above: Result Comment: The [...] WB Performed By: #### E BVPROF #### [facility] [address] [place] [address] Dr. Nahomi Arana Performed by: Comment Normal [facility] Comment on above: Result Comment: Sabra Bryant, Medical Record Coder (ASCP) Performed at: WB Performed By: #### E BVPROF #### [facility] [address] [place] [address] Dr. Nahomi Arana Specimen adequacy: Comment Normal [place] Comment on above: Result Comment: Sati sfactory for evaluation. No endocervical component is identified. Performed at: WB Performed By: #### E BVPROF #### [facility] [address] [place] [address] Dr. Nahomi Arana Covid-19 PCR (CVDTB)on 04-30 SARS-CoV-2 (COVID-19) RNA ORTIZ+probe Ql (Unsp spec) Detected Critically abnormal NOT DETECTED [facility] Comment on above: Result Comment: This test is not yet approved or cleared by the [place] FDA. When there are no FDA-approved or cleared tests available, and other criteria are met, FDA can make tests available under an emergency access mechanism called an Emergency Use Authorization (EUA). The EUA for this test is supported by the Senior Telecommunications Specialist of Health and Human Service's declaration that [...] used). Performed By: #### C VDTBH #### [facility] [address] [place] [address] Dr. Nahomi Arana ZAID by IFAon 12-09-2021 ZAID Pattern Negative Normal [facility] Comment on above: Performed By: #### W SR, VITD, C3COMP, C4COMP, CRP, ENAID, CCP, ANAIFS, RF, DNAAB, CK ####[place] [address] [address], [place] [phone] ZAID Titer Negative Normal Negative [facility] Comment on above: Result Comment: Norm al range : negative at <1:80 serum dilution. Performed By: #### W SR, VITD, C3COMP, C4COMP, CRP, ENAID, CCP, ANAIFS, RF, DNAAB, CK ####[address] [phone] Nuclear Ab IF (S) [Titer] Negative Normal Negative [facility] Comment on above: Result Comment: Norm [...] CRP, ENAID, CCP, ANAIFS, RF, DNAAB, CK ####[address] [phone] C-Reactive Proteinon 022 C-Reactive Protein 0.3 mg/dL Normal <0.9 [facility] Comment on above: Performed By: #### W SR, VITD, C3COMP, C4COMP, CRP, ENAID, CCP, ANAIFS, RF, DNAAB, CK ####[address] [phone] C3 Complementon 12-09-2021 C3 Complement 167 mg/dL High 86-166 [facility] Comment on above: Performed By: #### W SR, VITD, C3COMP, C4COMP, CRP, ENAID, CCP, ANAIFS, RF, DNAAB, CK ####[facility] [place], [place] [phone] C4 Complementon 12-09-2021 C4 Complement 21 mg/dL Normal 13-46 [facility] Comment on above: Performed By: #### W SR, VITD, C3COMP, C4COMP, CRP, ENAID, CCP, ANAIFS, RF, DNAAB, CK ####[address] [phone] CCP Antibody, IgGon 12-09-19 22 CCP Antibody, IgG <15 Normal <20 [facility] Comment on above: Result Comment: < 20 units: Negative 20-39 units: Weak Positive 40-59 units: Moderate Positive > 60 units: Strong Positive The following results were obtained with the [employer] QUANTA Lite CCP3 IgG ANGELICA. Anti-CCP values obtained with different manufacturers' assay methods may not be used interchangeably. The magnitude of the reported IgG levels cannot be correlated to an endpoint titer. Performed By: #### W SR, VITD, C3COMP, C4COMP, CRP, ENAID, CCP, ANAIFS, RF, DNAAB, CK ####[address] [phone] CKon 12-09-2021 CK [Catalytic activity/Vol] 117 U/L Normal 42-196 [facility] Comment on above: Performed By: #### W SR, VITD, C3COMP, C4COMP, CRP, ENAID, CCP, ANAIFS, RF, DNAAB, CK ####[place] [address] [place], [place] [phone] CNOVon 12-09-2021 CNOV Office Visit (RHEUMN) ---- YONATANZAKIYA Walsh ([id number]) 1975 F Date Time Provider Department 12/09/21 [...] (human papilloma virus) infection - Hyperlipidemia 09/2015 [id number] - Migraine - Neuropathy Diagnosis made by [...] Lysis of adhesions.Monarc transobturator midurethral sling, ref [id number], lot [id number]. 4. Posterior repair. - REMOVAL ADENOIDS,PRIMARY,<1 2 [...] LEAST 35 (more content not included)... Normal [facility] DNA Antibodyon 12-09-2021 DNA Antibody 16 IU/mL Normal <30 [facility] Comment on above: Result Comment: Nega tive for ds DNA Antibodies Negative: <30 IU/mL Equivocal: 30-74 IU/mL Positive: >74 IU/mL Performed By: #### W SR, VITD, C3COMP, C4COMP, CRP, ENAID, CCP, ANAIFS, RF, DNAAB, CK ####[address] [phone] JAMEEL Antibody Panelon 022 Centromere <0.2 Normal <1.0 [facility] Comment on above: Result Comment: NEGA TIVE Negative: <1.0 AI Positive: >0.9 AI Test performed using the Multiplex Flow Immunoassay technology. Performed By: #### W SR, VITD, C3COMP, C4COMP, CRP, ENAID, CCP, ANAIFS, RF, DNAAB, CK ####[address] [phone] Chromatin Antibody <0.2 Normal <1.0 [facility] Comment on above: Result Comment: NEGA TIVE Negative: <1.0 AI Positive: >0.9 AI Test performed using the Multiplex Flow Immunoassay technology. Performed By: #### W SR, VITD, C3COMP, C4COMP, CRP, ENAID, CCP, ANAIFS, RF, DNAAB, CK ####[address] [place], [place] [phone] NICOLE 1 Antibody <0.2 Normal <1.0 [facility] Comment on above: Result Comment: NEGA TIVE Negative: <1.0 AI Positive: >0.9 AI Test performed using the Multiplex Flow Immunoassay technology. Performed By: #### W SR, VITD, C3COMP, C4COMP, CRP, ENAID, CCP, ANAIFS, RF, DNAAB, CK ####[address] [phone] Ribosomal SEXER <0.2 Normal <1.0 [facility] Comment on above: Result Comment: NEGA TIVE Negative: <1.0 AI Positive: >0.9 AI Test performed using the Multiplex Flow Immunoassay technology. Performed By: #### W SR, VITD, C3COMP, C4COMP, CRP, ENAID, CCP, ANAIFS, RF, DNAAB, CK ####[address] [phone] SEXER Antibody <0.2 Normal <1.0 [facility] Comment on above: Result Comment: NEGA TIVE Negative: <1.0 AI Positive: >0.9 AI Test performed using the Multiplex Flow Immunoassay technology. Performed By: #### W SR, VITD, C3COMP, C4COMP, CRP, ENAID, CCP, ANAIFS, RF, DNAAB, CK ####[address] [phone] Scleroderma IgG Ab <0.2 Normal <1.0 [facility] Comment on above: Result Comment: NEGA TIVE Negative: <1.0 AI Positive: >0.9 AI Test performed using the Multiplex Flow Immunoassay technology. Performed By: #### W SR, VITD, C3COMP, C4COMP, CRP, ENAID, CCP, ANAIFS, RF, DNAAB, CK ####[address] [place], [place] [phone] Sm Antibody <0.2 Normal <1.0 [facility] Comment on above: Result Comment: NEGA TIVE Negative: <1.0 AI Positive: >0.9 AI Test performed using the Multiplex Flow Immunoassay technology. Performed By: #### W SR, VITD, C3COMP, C4COMP, CRP, ENAID, CCP, ANAIFS, RF, DNAAB, CK ####[address] [phone] SSA Antibody <0.2 Normal <1.0 [facility] Comment on above: Result Comment: NEGA TIVE Negative: <1.0 AI Positive: >0.9 AI Test performed using the Multiplex Flow Immunoassay technology. Performed By: #### W SR, VITD, C3COMP, C4COMP, CRP, ENAID, CCP, ANAIFS, RF, DNAAB, CK ####[address] [place], [place] [phone] SSB Antibody <0.2 Normal <1.0 [facility] Comment on above: Result Comment: NEGA TIVE Negative: <1.0 AI Positive: >0.9 AI Test performed using the Multiplex Flow Immunoassay technology. Performed By: #### W SR, VITD, C3COMP, C4COMP, CRP, ENAID, CCP, ANAIFS, RF, DNAAB, CK ####[address] [phone] Rheumatoid Factoron 12-09-19 22 Rheumatoid Factor <10 Normal <16 [facility] Comment on above: Performed By: #### W SR, VITD, C3COMP, C4COMP, CRP, ENAID, CCP, ANAIFS, RF, DNAAB, CK ####[address] [phone] Sed Rate Westergrenon 2021 Sed Rate Westergren 20 mm/hr Normal 0-20 [facility] Comment on above: Performed By: #### W SR, VITD, C3COMP, C4COMP, CRP, ENAID, CCP, ANAIFS, RF, DNAAB, CK ####[address] [phone] Urinalysison 12-09-2021 Bilirubin, Urine Negative Normal Negative [facility] Comment on above: Performed By: #### U A ####[address] [phone] Clarity (U) Clear Normal Clear [facility] Comment on above: Performed By: #### U A ####[place] [phone] Color (U) Straw Critically abnormal Yellow [facility] Comment on above: Performed By: #### U A ####[place] [phone] Comments SEE COMMENT Normal [facility] Comment on above: Result Comment: Micr oscopic Examination Performed Performed By: #### U A ####[place] [phone] Epithelial cells LM Ql (Urine sed) SEE COMMENT Normal [facility] Comment on above: Result Comment: Few Squamous Epithelial Cells Performed By: #### U A ####[place] [phone] Glucose Ql (U) Negative Normal Negative [facility] Comment on above: Performed By: #### U A ####[place] [phone] Hemoglobin/Blood,Ur 1+ Critically abnormal Negative [facility] Comment on above: Performed By: #### U A ####[place] [phone] Ketones Ql (U) Negative Normal Negative [facility] Comment on above: Performed By: #### U A ####[place] [address] [address] [place] [phone] Leukest Negative Normal Negative [facility] Comment on above: Performed By: #### U A ####[place] [phone] Nitrite Ql (U) Negative Normal Negative [facility] Comment on above: Performed By: #### U A ####[place] [address] [address], [place] [phone] pH (U) 6.0 [pH] Normal 5.0-8.0 [facility] Comment on above: Performed By: #### U A ####[place] [address] [address], [place] [phone] Protein, Urine Negative Normal Negative [facility] Comment on above: Performed By: #### U A ####[address] [phone] RBC 0-3 Normal 0-3 [facility] Comment on above: Performed By: #### U A ####[address] [phone] Specific Wren, Ur 1.008 Normal 1.005-1.030 [facility] Comment on above: Performed By: #### U A ####[address] [phone] Urine Abdirizak Comment SEE COMMENT Normal [facility] Comment on above: Result Comment: N/A Performed By: #### U A ####[address] [phone] Urobilinogen (U) [Mass/Vol] Negative Normal Negative [facility] Comment on above: Performed By: #### U A ####[address] [phone] WBC 0-5 Normal 0-5 [facility] Comment on above: Performed By: #### U A ####[address] [phone] Vitamin D 25 Hydroxyon 12-09 Vitamin D 25 Hydroxy 27.5 ng/mL Low 31.0-80.0 [facility] Comment on above: Result Comment: Clas sification of 25 [place] Vitamin D status: Insufficiency/Moderate Deficiency: < or = 30 ng/mL Sufficiency/Optimal Levels: 31 to 80 ng/mL Toxicity: > 100 ng/mL Test performed by chemiluminescent immunoassay. Performed By: #### W SR, VITD, C3COMP, C4COMP, CRP, ENAID, CCP, ANAIFS, RF, DNAAB, CK ####[facility] [id number] [place], [place] [phone] XR HAND 3V PA/LAT/OBL BILon 12-09-2021 XR [...] No other significant abnormality. ------- IMPRESSION: OSTEOARTHRITIS Dial Buffer: CELSO Transcribe Date/Time: Dec 09 2021 3:11P Dictated by : MIRIAM BILL MD This examination was interpreted and the report reviewed and electronically signed by: MIRIAM BILL MD on Dec 09 2021 3:12PM EST [id number] Normal [facility] CNOVon 08-14-2021 CNOV Office Visit (GYNMN) ---- ZAKIYA CUELLO ([id number]) 1975 F Date Time Provider Department 08/14/21 [...] (human papilloma virus) infection - Hyperlipidemia 09/2015 [id number] - Migraine - Neuropathy Diagnosis made by [...] Lysis of adhesions.Monarc transobturator midurethral sling, ref [id number], lot [id number]. 4. Posterior repair. 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 Visit dredging inspector present: Berna Sethi MA GEN: Pleasant, cooperative, NAD SKIN: Color, texture, turgor nl. Warm, dry. ENDO: No obvious hirsutism signs. EYES: Conjunctivae clear. No discoloration. NECK: No mass LUNGS: Breathing comfortably without distress, CTAB HEART: RRR, no r/g ABDOMEN: Soft. NTND. No masses. PELVIC: external genitalia normal, normal Bartholin's glands, urethra, Rossmore's glands, no vulvar lesions, good vaginal support, physiologic discharge present, normal appearing perineal body and perianal region. No cervical lesions. BIMANUAL: no adnexal masses and non-tender. uterus normal size, shape and consistency THE FOLLOWIN (more content not included)... Normal [facility] 05-08-2021 CNPN Telephone (DERBMN) ---- ZAKIYA CUELLO ([id number]) 1975 F Date Time Provider Department 05/08/21 [...] Encounter Status:Closed by TAMELA VASQUEZ on 05/08/21 [facility] OBSOLETEon 05-01-2021 OBSOLETE Refill (GYNMN) ---- ZAKIYA CUELLO ([id number]) 1975 F Date Time Provider Department 05/01/21 [...] Please call and advise the patient at [phone] Thank you Zehra Jiang E- [id number] [place] [address] [address] [facility] [phone] [place] [address] Zehra Rivera RN 05/02/2021 3:33 PM Signed [...] Encounter Status:Closed by NUNO RIVERA on 05/02/21 [facility] 04-22-2021 CNOV Office Visit (DERMMN) ---- ZAKIYA CUELLO ([id number]) 1975 F Date Time Provider Department 04/22/21 [...] Past Histories independently gathered by the clinical manager decision support and the remaining scribed note accurately describes [...] effluvium [L65.0] Order(s):ZINC BLD [SQZINC] Order #: [id number] FUTURE IRON + TIBC [SQIRON] Order #: [id number] FUTURE FERRITIN BLD [SQFERR] Order #: [id number] FUTURE VITAMIN D 25 HYDROXY [SQVITD] Order #: [id number] FUTURE Prescriptions as of 04/22/2021 Sig: (more content not included)... Normal [facility] Ferritinon 04-22-2021 Ferritin [Mass/Vol] 44.4 ng/mL Normal 14.7-205.1 [facility] Comment on above: Performed By: #### F ERR, ZINC, IRON, VITD ####[address] [phone] Iron and TIBCon 04-22-2021 Iron [Mass/Vol] 79 ug/dL Normal 41-186 [facility] Comment on above: Performed By: #### F ERR, ZINC, IRON, VITD ####[address] [place], [place] [phone] TIBC 382 ug/dL Normal 232-386 [facility] Comment on above: Performed By: #### F ERR, ZINC, IRON, VITD ####[address] [place], [place] [phone] Transferrin Saturatn 21 % Normal 15-57 [facility] Comment on above: Performed By: #### F ERR, ZINC, IRON, VITD ####[address] [place], [place] [phone] Vitamin D 25 Hydroxyon 04-22 Vitamin D 25 Hydroxy 32.7 ng/mL Normal 31.0-80.0 [facility] Comment on above: Result Comment: Clas sification of 25 [place] Vitamin D status: Insufficiency/Moderate Deficiency: < or = 30 ng/mL Sufficiency/Optimal Levels: 31 to 80 ng/mL Toxicity: > 100 ng/mL Test performed by chemiluminescent immunoassay. Performed By: #### F ERR, ZINC, IRON, VITD ####[facility] [id number] [place], [place] [phone] Zincon 04-22-2021 Zinc 79 ug/dL Normal 55-150 [facility] Comment on above: Result Comment: This test was developed and its performance characteristics determined by [facility]'s [facility] [place] ([facility]). It has not been cleared or approved by the FDA. [facility] is regulated under CLIA as qualified to perform high complexity testing. This test is used for clinical purposes. It should not be regarded as investigational or for research. Performed By: #### F ERR, ZINC, IRON, VITD ####[facility] [id number] [place], [place] [phone] Vital Signs Date Time Vital Sign Value Performing Clinician Faci lity 03-31-2023 10:35-0400 Body height 160.02 cm MD Eugenio Obrien Work Phone: [facility] 03-31-2023 10:35-0400 Body temperature 98 [degF] MD Eugenio Obrien Work Phone: [facility] 03-31-2023 10:35-0400 Body weight 77.7 kg MD Eugenio Obrien Work Phone: [facility] 03-31-2023 10:35-0400 Diastolic blood pressure 91 mm[Hg] MD Eugenio Obrien Work Phone: [facility] 03-31-2023 10:35-0400 Heart rate 73 /min MD Eugenio Obrien Work Phone: [facility] 03-31-2023 10:35-0400 Respiratory rate 16 /min MD Eugenio Obrien Work Phone: [facility] 03-31-2023 10:35-0400 SaO2% (BldA) [Mass fraction] 98 % MD Eugenio Obrien Work Phone: [facility] 03-31-2023 10:35-0400 Systolic blood pressure 151 mm[Hg] MD Eugenio Obrien Work Phone: [facility] 09-05-2022 18:50-0400 Diastolic blood pressure 88 mm[Hg] MD Eugenio Obrien Work Phone: [facility] 09-05-2022 18:50-0400 Heart rate 86 /min MD Eugenio Obrien Work Phone: [facility] 09-05-2022 18:50-0400 Respiratory rate 18 /min MD Eugenio Obrien Work Phone: [facility] 09-05-2022 18:50-0400 SaO2% (BldA) [Mass fraction] 99 % MD Eugenio Obrien Work Phone: [facility] 09-05-2022 18:50-0400 Systolic blood pressure 142 mm[Hg] MD Eugenio Obrien Work Phone: [facility] 09-05-2022 17:05-0400 Body height 166.37 cm MD Eugenio Obrien Work Phone: [facility] 09-05-2022 17:05-0400 Body temperature 98.1 [degF] MD Eugenio Obrien Work Phone: [facility] 09-05-2022 17:05-0400 Body weight 76 kg MD Eugenio Obrien Work Phone: [facility] Encounters Encounter Date Encounter Type Care Provider Facility Start: 11-01-2023 End: 11-02-2023 ambulatory Ramon Rivas MD Facility:[facility] Start: 10-04-2023 End: 10-05-2023 ambulatory Ramon Rivas MD Facility:[facility] Start: 07-21-2023 End: 07-21-2023 ambulatory Eugenio Obrien Facility:[facility] Start: 07-21-2023 End: 07-21-2023 ambulatory MD Eugenio Obrien Work Phone: [facility] Work Phone: Start: 07-21-2023 End: 07-21-2023 Patient encounter procedure MD Eugenio Obrien Work Phone: [facility] [place] Work Phone: Start: 06-02-2023 End: 06-02-2023 ambulatory SWETA MILEY [facility] Start: 04-30-2023 ambulatory ANDRIUS GIEDRAMANISH Faci lity:[facility] Start: 04-30-2023 End: 05-01-2023 ambulatory Ramon Rivas MD Facility:[facility] Start: 03-31-2023 End: 03-31-2023 Emergency department patient visit Eugenio Obrien Facility:[facility] Start: 03-31-2023 End: 03-31-2023 Emergency department patient visit MD Eugenio Obrien Work Phone: [facility] Work Phone: Start: 03-25-2023 End: 03-25-2023 ambulatory MARYBEL SWANSON . Facility:[facility] Start: 12-18-2022 Telephone encounter Lake Dailey DO Work Phone: Ophthalmology Comment on above: Orders Start: 12-07-2022 End: 12-08-[address] EUGENIO OBRIEN . Facility:[facility] Start: 11-09-2022 Refill Fatoumata Wild MD Work Phone: Gynecology Comment on above: Refill Request Start: 11-06-2022 End: 11-06-2022 ambulatory Eugenio Obrien Facility:[facility] Start: 10-27-2022 End: 10-28-[address] EUGENIO OBRIEN . Facility:[facility] Start: 09-22-2022 End: 09-22-2022 ambulatory АЛЕКСАНДР GÓMEZ Facility:[facility] Start: 09-09-2022 End: 09-10-[address] EUGENIO OBRIEN . Facility:[facility] Start: 09-05-2022 End: 09-05-2022 Emergency department patient visit Eugenio Obrien Facility:[facility] Start: 09-05-2022 End: 09-05-2022 Emergency department patient visit MD Eugenio Obrien Work Phone: [facility] Start: 09-02-2022 End: 09-03-[address] [...] Author Start: 07-10-2025 LIPID SCREEN LIPID SCREEN [facility] Start: 07-21-2023 Dehydroepiandrosterone sulfate level [facility] Start: 07-21-2023 [facility] Start: 07-10-2023 DIABETES SCREEN DIABETES SCREEN [facility] Start: 11-29-2022 DEPRESSION ASSESSMENT DEPRESSION ASSESSMENT [facility] Start: 07-30-2022 Influenza vaccination INFLUENZA (#1) [facility] Start: 11-29-2021 DEPRESSION ASSESSMENT DEPRESSION ASSESSMENT [facility] Start: 08-07-2021 COVID-19 VACCINE (3 - Booster for Moderna series) COVID-19 VACCINE (3 - Booster for Moderna series) [facility] Start: 2018 COLOGUARD (FIT-DNA) COLOGUARD (FIT-DNA) [facility] Start: 2018 Colonoscopy COLONOSCOPY [facility] Start: 2018 COLORECTAL CANCER SCREENING COLORECTAL CANCER SCREENING [facility] Start: [address] COLONOGRAPHY [facility] Start: 2018 FECAL OCCULT BLOOD FECAL OCCULT BLOOD [facility] Start: 2018 SIGMOIDOSCOPY SIGMOIDOSCOPY [facility] Start: 2013 Mammography MAMMOGRAM [facility] Start: 1992 Urine microalbumin profile DTAP,TDAP,TD (1 - Tdap) [facility] Start: 1991 HEPATITIS C SCREENING HEPATITIS C SCREENING [facility] Start: 1991 HIV SCREENING HIV SCREENING [facility] Start: 1973 HEPATITIS B (1 of 3 - 3-dose series) HEPATITIS B (1 of 3 - 3-dose series) [facility] Patient Education [facility] Work Phone: Patient referral [facility] Work Phone: Testosterone Free [M ass/volume] in Serum or Plasma [facility] Payers Date Payer Category Payer Unknown 2022 Self-pay [id number] 2019 Medicaid [employer] [place] [id number] 2019-Present [phone] [place] [address] Medicaid [id number] 1973 Unknown [id number] 2.16.840.1.163402.3.579.2.593 1973 Unknown [id number] 2.16.840.1.627516.3.579.2.593 1973 Unknown [id number] 2.16.840.1.206731.3.579.2.593 1973 Unknown [id number] 2.16.840.1.526851.3.579.2.593 1973 Unknown [id number] 2.16.840.1.217316.3.579.2.593 1973 Unknown [id number] 2.16.840.1.656171.3.579.2.593 1973 Unknown [id number] 2.16.840.1.712439.3.579.2.593 1973 Unknown [id number] 2.16.840.1.361396.3.579.2.593 1973 Unknown [id number] 2.16.840.1.599782.3.579.2.593 1973 Unknown [id number] 2.16.840.1.850799.3.579.2.593 1973 Unknown [id number] 2.16.840.1.951667.3.579.2.593 1973 Unknown [id number] 2.16.840.1.819148.3.579.2.196 1973 Unknown [id number] 2.16.840.1.822104.3.579.2.196 1973 Unknown [id number] 2.16.840.1.078468.3.579.2.196 1959 Medicaid [id number] 1959 Self-pay [id number] Unknown [place] BC/BS [id number] Unknown [id number] 2.16840.1.373634.3.579.2.531 Unknown [id number] .16840.1.499164.3.579.2.531 Unknown [id number] .16840.1.876365.3.579.2.531 Unknown [id number] 2.16840.1.763541.3.579.2.531 Social History Date Type Detail Facility Start: 09-05-2022 End: 03-31-2023 Tobacco smoking status NHIS Never smoked tobacco (finding) [facility] Start: 1975 Sex Assigned At Female F [facility] Start: 06-10-2015 Tobacco use and exposure Smokeless tobacco non-user [facility] Start: 01-08-2022 Alcohol intake Current drinke r of alcohol (finding) [facility] Start: 10-25-2015 Alcohol Comment social [facility] Start: 1975 Sex Assigned At Not on file C [facility] Medical Equipment Procedure Code Equipment Code Equipment Origin al Text Equipment Identifier Dates Evelyn Ambrosio [facility] - [id number] Start: 07-01-2015 Clinical Notes 04-22-2021 to [...] in a finger splint and referred to [facility] Ortho for further evaluation and [...] Past Medical History: Diagnosis Date Diabetes mellitus ([facility]) Objective General: Body mass index is 28.52 kg/m???. There were no vitals filed for this visit. No acute distress, comfortable Respiratory: Unlabored breathing with normal rate, no cough Cardiovascular: Warm well perfused extremities Psych: Appropriate mood behavior Left Hand: Inspection- no ecchymosis, no edema, no effusion Tender to palpation over dorsal aspect left index finger DIP joint Strength: teaching manager deferred 2/2 pain, thumb 5/5, interossei 5/5 [...] Patel MD Orthopedic Surgery Resident Physician Pager: [phone] 06/02/23 11:35 AM By using the attestations [...] be an additional personal documentation from me. [facility] 12-24-2022 Miscellaneous Notes Images from the original note were not included. Contacted the patient and left a message the prescription has been updated. Also faxed the prescription to [facility] Yobongo as requested. Lake Ro, OD You 18 hours ago (4:03 PM) The patient's glasses prescription has been finalized and should be available on My Chart. You Lake Ro, OD 3 days ago CLAIRE Mckenna, is there any way you can release the manifest for the patient for their appointment with you 10/2021? Lake Dailey, DO [facility] 4 days ago The patient was not refracted by us because she already has an buttonhole facer (Dr Lake Ro) who takes care of her glasses. She should contact his office. [facility] calling for pts glasses prescription. Please fax to [phone]. Thank you! documented in this encounter [facility] 11-11-2022 Miscellaneous Notes Noted, thanks Phoned pt, [...] Troy Lubin RN documented in this encounter [facility] 01-08-2022 Note HNO ID: [id number] Author: Lake Dailey DO Service: ? Author [...] Dailey DO January 08, 2022 9:22 AM [facility] 12-09-2021 Note HNO ID: [id number] Author: RT Kim(R) Service: Radiology Author Type: [...] RT Kim(R) December 09, 2021 3:17 PM [facility] 12-09-2021 Note HNO ID: [id number] Author: Neeta Amador MD Service: ? Author [...] (human papilloma virus) infection - Hyperlipidemia 09/2015 [id number] - Migraine - Neuropathy Diagnosis made by [...] Lysis of adhesions.Monarc transobturator midurethral sling, ref [id number], lot [id number]. 4. Posterior repair. - REMOVAL ADENOIDS,PRIMARY,<12 Y/O [...] 500 mg t (more content not included)... [facility] 10-30-2021 Note HNO ID: [id number] Author: Lake Ro OD Service: ? Author Type: ORTHODONTIST VICE PRESIDENT Type: Progress Notes Filed: 10/30/2021 9:59 AM [...] Ro, BILLY October 30, 2021 9:56 AM [facility] 10-20-2021 Note HNO ID: [id number] Author: Lake Ro OD Service: ? Author Type: ORTHODONTIST VICE PRESIDENT Type: Progress Notes Filed: 10/20/2021 9:06 AM [...] Ro, OD October 20, 2021 9:04 AM [facility] 08-15-2021 Note HNO ID: [id number] Author: Fatoumata Wild MD Service: ? Author Type: Physician Type: Progress Notes Filed: 08/14/2021 10:37 PM Note Text: I spent a total of 40+ minutes on the date of the service which included preparing to see the patient, [id number] patient care, completing clinical documentation, obtaining and/or reviewing separately obtained history, performing a medically appropriate examination, counseling and educating the patient/family/caregiver, ordering medications, tests, or procedures and independently interpreting results (not separately reported). [facility] 08-14-2021 Note HNO ID: [id number] Author: Fatoumata Wild MD Service: ? Author [...] (human papilloma virus) infection - Hyperlipidemia 09/2015 [id number] - Migraine - Neuropathy Diagnosis made by [...] Lysis of adhesions.Monarc transobturator midurethral sling, ref [id number], lot [id number]. 4. Posterior repair. 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 Visit dredging inspector present: Berna Sethi MA GEN: Pleasant, cooperative, NAD SKIN: Color, texture, turgor nl. Warm, dry. ENDO: No obvious hirsutism signs. EYES: Conjunctivae clear. No discoloration. NECK: No mass LUNGS: Breathing comfortably without distress, CTAB HEART: RRR, no r/g ABDOMEN: Soft. NTND. No masses. PELVIC: external genitalia normal, normal Bartholin's glands, urethra, Rossmore's glands, no vulvar lesions, good vaginal support, [...] 4-8 o'clock-severe, a (more content not included)... [facility] 04-22-2021 Note HNO ID: [id number] Author: Franklin Prather MD Service: ? Author Type: Physician Type: Progress Notes Filed: 05/13/2021 8:08 AM Note Text: NEW PATIENT Chief Complaint: Hair Loss History of Present Ilness: Zakyia Cuello is a 45 year old female [...] Past Histories independently gathered by the clinical manager decision support and the remaining scribed note accurately describes [...] infection last year hair Franklin Prather MD [facility] Evaluation note No assessment inform ation available [facility] Work Phone: Hospital Discharge instructions Additional Instructions Follow-up with your primary care doctor Return to ED if develop worsening symptoms or concerns [facility] Work Phone: Summary Purpose Family History No [...] section and content) DATE CREATED AUTHOR 01/16/2022 [facility] DATE CREATED AUTHOR AUTHOR'S ORGANIZ ATION 04/09/[address] [facility] DATE CREATED AUTHOR AUTHOR'S ORGANIZ ATION 06/09/2023 [facility] DATE CREATED AUTHOR AUTHOR'S ORGANIZ ATION 07/30/2023 [facility] DATE CREATED AUTHOR AUTHOR'S ORGANIZ ATION 11/12/2023 [facility] Care Teams (unrecognized sec tion and content) Team Status: Active Member Role Status Dates Eugenio Obrien MD Primary Care Provider Active Team Status: Inactive Member Role Status Dates Eugenio bOrien MD Primary Care Provider Active Poli Vázquez APRN Emergency Provider Active Team Status: Inactive Member Role Status Dates Eugenio Obrien MD Primary Care Provider Active Brendan Mitchell DO Emergency Provider Active Approver Relationship Specialty Start Date End Date Eugenio Obiren MD [address] [place] [address] PCP - General Family Medicine 07/05/20 Team [...] or prosecute any alcohol or drug abuse patient.[facility] the event this information is protected by the Federal Confidentiality of Alcohol and Drug Abuse Patient Records regulations: The Federal rules restrict any use of the information to criminally investigate or prosecute any alcohol or drug abuse patient.[facility] Reason for Visit (unrecogniz ed section and [...] BE BASED ON THE PRIMARY CLINICAL RECORDS. [facility]. provides no warranty or guarantee of the accuracy or completeness of information in this document.
[2023-12-27 07:54] VITALS: BP 129/84; PULSE 83; RESP 16; TEMP 36.5; O2SAT 97
[2023-12-27] MEDS: 0.9 % SODIUM CHLORIDE 500 ML IV (08:03)
[2023-12-27] MEDS: BUPIVACAINE HCL 0.25% PF 25 MG/10 ML VIAL INJ (08:27)
[2023-12-27] MEDS: LIDOCAINE HCL 2% 400 MG/20 ML MDV 15 ML INJ (08:27)
[2023-12-27] MEDS: TRIAMCINOLONE ACETONIDE 40 MG/ML VIAL INJ (08:27)
--- NOTE | 2023-12-27 08:40 | P.ON_ITS ---
Date of procedure: 12/27/23 Pre-op diagnosis: Lumbar spondylosis Post-op diagnosis: same as pre-op Procedure: Procedure: Bilateral L4-5, L5-S1 radiofrequency ablation Medications: Bupivacaine 0.25% 6cc, kenalog 80mg, lidocaine 2% 6cc The patient was seen and examined in the preoperative holding area.? The site was marked.? Written informed consent was obtained and placed on the chart.? The patient was brought to the medical procedure unit and placed in the prone position.? A timeout was completed verifying correct patient, procedure, positioning, and special requirements.? The skin overlying the target points, the designated medial branch, were prepped and draped in the usual sterile fashion.? The target point was achieved with a 20-gauge 15 cm with a 10 mm curved active tip radiofrequency cannula under direct fluoroscopic visualization.? The needle was inserted at level L4 on the right side. Needle tip position was confirmed with lateral fluoroscopic position.? Motor stimulation was carried out at 2 Hz up to 5 volts with the absence of extremity activity.? This was repeated at level L5, S1 on right side.?? Sensory stimulation was carried out.? Concordant pain was realized at the above- mentioned sites.? Then radiofrequency lesioning was carried out times 90 seconds at 80 degrees times 2 lesions at each level.? The radiofrequency probe was removed prior to cannula removal.? The above-mentioned injectate was placed in 1 mL increments.? The needle was removed. The same procedure, with the same steps, was then completed on the left side at the same levels. Insertion sites were covered.? The patient was taken to the postoperative recovery area and monitored for an appropriate length of time before being found suitable for discharge in the company of a responsible adult. Anesthesia: Moderate Sedation Surgeon: Ramon Rivas Pathology: none sent Condition: stable Disposition: no change
[2023-12-27 08:42] VITALS: BP 108/77; PULSE 81; RESP 16; TEMP 36.6; O2SAT 95
[2023-12-27 08:48] VITALS: BP 111/73; PULSE 84; RESP 16; TEMP 36.6; O2SAT 98
--- NOTE | 2023-12-27 11:36 | PC.NURSE ---
After dressing pt stated her left leg felt numb and weak. Pt was unable to stand without assistance. Pt was assisted to wheelchair and observed. Pt was rechecked every 30 minutes and attempted to ambulate with 2 assist. After 4 attempts pt was able to walk and felt steady.
== END 2023-12-27 11:24 | disposition home or self-care (01) ==
PROVIDERS: PCP Family Medicine; Visit Provider Anesthesiology
PROC: (CPT 1992; principal; 2023-12-27 08:20)
DX: M47.816 Spondylosis without myelopathy or radiculopathy, lumbar region (principal)
CPT/HCPCS: 64635; 64636; J0665; J1100; J2704; J3301

== ENCOUNTER 2024-01-26 13:56 | Outpatient (OUT) | payer OTHER, SELFPAY ==
--- NOTE | 2024-01-26 14:33 | P.CN_ITS ---
Consult Note: HPI Data of Consult Patient: known to practice within the last 3 years Requesting Physician: Bria Santamaria NP Primary Care Provider: Wan Obrien MD Consult Narrative Reason for consult: f/u Narrative: Zakiya Cuello a pleasant 47 year old female presents for evaluation and management of chronic back pain. Recently underwent Bilateral L3, 4, 5 (L4-5, L5-S1) medial branch thermal RFA >80% ongoing relief, Patient continues to have right low back pain and would like to discuss options. cc:: CC: Bria Santamaria NP Review of Systems ROS Status of ROS 10 or more systems reviewed and unremark able except as noted in history and below Musculoskeletal Reports: back pain and joint pain PFSH PFSH Medical History Acid reflux ?K21.9 - Gastro-esophageal reflux disease without esophagitis (ICD-10) Altered mental status ?R41.82 - Altered mental status, unspecified (ICD-10) Angina at rest ?I20.8 - Other forms of angina pectoris (ICD-10) Anxiety ?F41.9 - Anxiety disorder, unspecified (ICD-10) Aphasia ?R47.01 - Aphasia (ICD-10) Heartburn ?R12 - Heartburn (ICD-10) Hiatal hernia ?K44.9 - Diaphragmatic hernia without obstruction or gangrene (ICD-10) High cholesterol ?E78.00 - Pure hypercholesterolemia, unspecified (ICD-10) Loud snoring ?R06.83 - Snoring (ICD-10) Low back pain ?M54.50 - Low back pain, unspecified (ICD-10) Sinus tachycardia ?R00.0 - Tachycardia, unspecified (ICD-10) Sleep apnea ?G47.30 - Sleep apnea, unspecified (ICD-10) TMJ (temporomandibular joint syndrome) ?M26.609 - Unspecified temporomandibular joint disorder, unspecified side (ICD-10) Surgical History H/O: hysterectomy ?Z90.710 - Acquired absence of both cervix and uterus (ICD-10) S/P nasal surgery ?Z98.890 - Other specified postprocedural states (ICD-10) H/O tubal ligation ?Z98.51 - Tubal ligation status (ICD-10) H/O eye surgery ?Z98.890 - Other specified postprocedural states (ICD-10) History of tonsillectomy and adenoidectomy ?Z90.89 - Acquired absence of other organs (ICD-10) Social History Gender Identity: female Meds Home Medications and Allergies Home Medications Medication Instructions Recorded Confirmed Type clobetasol 0.05 % scalp solution 1 applic topical DAILY 04/30/23 12/27/23 History ferrous sulfate 143 mg (45 mg 143 mg PO DAILY 04/30/23 12/27/23 History iron) tablet,extended release (Slow Release Iron) gabapentin 600 mg tablet 600 mg PO BID 04/30/23 12/27/23 History liothyronine 5 mcg tablet 10 mcg PO DAILY 04/30/23 12/27/23 History metoprolol succinate 100 mg 150 mg PO DAILY 04/30/23 12/27/23 History tablet,extended release 24 hr pantoprazole 40 mg tablet,delayed 40 mg PO BID 04/30/23 12/27/23 History release prazosin 5 mg capsule 5 mg PO DAILY 04/30/23 12/27/23 History progesterone 100 mg PO .QD 04/30/23 12/27/23 History simvastatin 40 mg tablet 40 mg PO DAILY 04/30/23 12/27/23 History cholecalciferol (vitamin D3) 125 125 mcg PO DAILY 05/01/23 12/27/23 History mcg (5,000 unit) capsule ezetimibe 10 mg tablet 10 mg PO DAILY 05/01/23 12/27/23 History lurasidone 20 mg tablet (Latuda) 20 mg PO DAILY 05/01/23 12/27/23 History albuterol 90 mcg/actuation aerosol 90 mcg inhalation Q4H PRN 05/02/23 12/27/23 History inhaler shortness of breath budesonide-formoterol HFA 160 2 inh inhalation BID 05/02/23 12/27/23 History mcg-4.5 mcg/actuation aerosol inhaler ketoconazole 2 % shampoo 1 applic topical DAILY 05/02/23 12/27/23 History sucralfate 1 gram tablet 1 g PO Q6H 05/02/23 12/27/23 History tiotropium bromide 1.25 2 inh inhalation DAILY 05/02/23 12/27/23 History mcg/actuation mist for inhalation (Spiriva Respimat) aspirin 325 mg tablet 81 mg (0.2492 x 325 mg) PO QD@0900 05/03/23 12/27/23 Rx #30 tabs levothyroxine 50 mcg tablet mcg 11/01/23 History famotidine 20 mg tablet (Pepcid) 20 mg PO BID #10 tabs 11/28/23 12/27/23 Rx ondansetron 4 mg disintegrating 4 mg PO Q8H nasuea and vomiting 11/28/23 12/27/23 Rx tablet 48 hours #6 tabs Allergies Allergy/AdvReac Type Severity Reaction Status Date / Time Sulfa (Sulfonamide Allergy Severe Anaphylaxis Verified 12/27/23 07:52 Antibiotics) clarithromycin [From Biaxin] AdvReac Severe Verified 12/27/23 07:52 lamotrigine [From Lamictal] AdvReac Severe Verified 12/27/23 07:52 Penicillins AdvReac Severe Verified 12/27/23 07:52 Exam Constitutional Documenting provider has reviewed patient's vital signs: yes Common normals: no apparent distress, oriented x3, healthy appearing, alert and well nourished General appearance: cooperative HENMT Common normals: normocephalic, hearing grossly normal bilaterally and moist oral mucous membranes Head and scalp: normocephalic Eye Common normals: PERRL Pupil: PERRL Neck & C-Spine Common normals: full ROM General: normal visual inspection Chest Common normals: inspection of chest normal Respiratory Common normals: normal respiratory effort, no retractions and no use of accessory muscles Effort & inspection: able to speak in complete sentences Back & Pelvis Lumbar spine/lower back: normal to inspection, lumbar ROM normal and straight leg raise negative bilaterally Other: negative facet loading negative radiculopathy positive right PSIS, gaenslens, thigh thrust, fabers, fadirs Extremity Common normals: normal to inspection and full ROM Neuro Common normals: oriented x3, CN's II-XII intact bilaterally, moves all extremities, no focal motor deficits, no sensory deficits noted and deep tendon reflexes 2+ bilaterally Sensorium/orientation: alert Gait (neuro): normal gait Motor exam: strength 5/5 throughout and no movement abnormalities noted Psych Common normals: mental status grossly normal, thought process normal, cooperative, affect normal, speech normal and activity/motor behavior normal Speech: normal speech Thought process: normal thought process Results Additional Findings Additional findings: I have checked an [place]AR[place] report on this patient today and there are no aberrancies noted in the prescribing history.?? A drug screen was completed and reviewed within the last year, and if there has not been a drug screen completed we ordered one today to monitor higher risk, state monitored pain medication use. As part of providing excellent, safe, comprehensive care, the following was completed at our patient's visit: 1. A medication reconciliation and review to ensure accurate knowledge of current/active medications, including asking our patients to inform us about any [id number] medications or herbal remedies/nutritional supplements/alternative remedies. 2. A review to specifically ensure our patients have had annual screening for: elevated body mass index (BMI), tobacco use, screening for depression, and screening for unhealthy alcohol use. When screening is concerning, patients are provided with education and the specific recommendation to discuss the concerning health issue and treatment options with their primary care provider. Assessment and Plan Assessment and Plan (1) Lumbar spondylosis: (2) Sacroiliitis: Plan significant ongoing improvement in low back pain from bilateral L4-5 L5-S1 thermal RFA right SIJ injection under fluoroscopy with 10mg PO valium 30-60 mins prior to injection. risks vs benefits discussed f/u 2 weeks after. pt to call and schedule. is losing her insurance end of january
== END 2024-01-26 13:57 | disposition home or self-care (01) ==
LOC: PM 13:56
PROVIDERS: PCP Family Medicine; Visit Provider Nurse Practitioner
DX: M47.816 Spondylosis without myelopathy or radiculopathy, lumbar region (principal); M46.1 Sacroiliitis, not elsewhere classified
CPT/HCPCS: G0463

== ENCOUNTER 2024-02-07 09:18 | Day surgery (SDC) | payer OTHER, SELFPAY ==
--- OUTSIDE RECORDS SUMMARY | 2024-02-07 09:23 | XMS_ITS | CCD ---
Author Name Unknown Address [address] [place] [address] Organization [facility] Care Team Providers Care Hand Riveter Name Role Phone MD Eugenio Obrien Primary Care Provider [phone] DO Brendan Mitchell Emergency Provider [phone] Eugenio Obrien MD Primary Care Provider [phone] [...] DR BECKER Consulting Unavailable HOY ., DR BECKRE Admitting Unavailable HOY ., DR BECKER Consulting Unavailable HOY ., DR BECKER Attending Unavailable HOY ., DR BECKER Admitting Unavailable HOY ., DR BECKER Primary Care Unavailable HOY ., DR BECKER Primary Care Unavailable KARASIK ., DR LUKE Attending Unavailabl e KARASIK ., DR LUKE Admitting Unavailabl e KARASIK ., DR LUKE Consulting Unavailabl e АЛЕКСАНДР GÓMEZ Attending Unavailable АЛЕКСАНДР GÓMEZ Admitting Unavailable EDINSON ., DR BECKER Primary Care Unavailable АЛЕКСАНДР GÓMEZ Consulting Unavailable SWETA GAMEZ Attending Unavailable MD Eugenio Obrien Primary Care Provider [phone] MD Shayy Lozada Attending Provider [phone] Eugenio Obrien Primary Care Unavailable Poli Vázquez Admitting Unavailable Poli Vázquez Attending Unavailable Eugenio Obrien Primary Care Unavailable Shayy Lozada Admitting Unavailable Shayy Lozada Attending Unavailable Eugenio Obrien Primary Care Unavailable [place] Admitting Unavailable [place] Attending Unavailable Eugenio Obrien Primary Care Unavailable Brendan Mitchell Admitting Unavailable Brendan Mitchell M Attending Unavailable Rob ACUNA, Andrius Carlin Attending Unavailable Rob ACUNA, Andrius Vzaki Attending Unavailable Rob ACUNA, Andrius Vytautgabby Attending Unavailable Rob ACUNA, Andrius Raegan Attending Unavailable Allergies Allergy Classification Reported Allergen(s) Allergy Type Date of Onset Reaction(s) Facility (7 sources) Clarithromycin; Translations: [CLARITHROMYCIN] Drug Allergy 4 [facility] (7 sources) lamoTRIgine; Translations: [LAMOTRIGINE] Drug Allergy 4 Rash [facility] (7 sources) Sulfonamides (Antibiotic); Translations: [SULFA (SULFONAMIDE ANTIBIOTICS)] Allergy to substance 4 [facility] (3 sources) Penicillins; Translations: [PENICILLINS] Propensity to adverse reactions to drug 4 Unknown [facility] (1 source) Clarithromycin Drug Allergy 3 [facility] (2 sources) diphenhydrAMINE Drug Allergy 5 [facility] (1 source) lamoTRIgine Drug Allergy 4 [facility] (2 sources) Penicillins Drug allergy (disorder) 3 [facility] (2 sources) Sulfonamides (Antibiotic) Drug allergy (disorder) 3 [facility] (1 source) Bee pollen; Translations: [BEE POLLEN] Propensity to adverse reactions to drug (disorder) 3 [facility] Repository (1 source) diphenhydrAMINE; Translations: [DIPHENHYDRAMINE HCL] Drug Allergy 3 [facility] Repository Medications Current Medications Medication Drug [...] Mupirocin Active 1 APPLIC TOPICAL Twice daily March 31, 2023 12:00am Completed/Discontinued Medications Medication Drug Class(es) Dates Sig (Normalized) Sig (Original) 60 actuat budesonide 0.16 mg/actuat / formoterol fumarate 0.0045 mg/actuat metered dose inhaler (2 sources) Corticosteroid, beta2-Adrenergic Agonist Start: 07-29-2021 take 2 puff(s) by mouth twice daily SYMBICORT 160-4.5 mcg/actuation inhaler INHALE 2 PUFFS BY MOUTH TWICE DAILY *RINSE AFTER USE* 0 07/29/2021 Active Comment on above: INHALE [address] [facility] TWICE DAILY *RINSE AFTER USE* cloNIDine hydrochloride [...] Active Comment on above: Take one tablet ojhn paul y gabapentin 100 mg oral capsule [...] on above: Take 1 tablet by myles once daily. Problems Active Problems Problem Classification [...] 06-02-2023 Episodic Other aftercare (1 source) Other alf (current) drug therapy; Translations: [OTH RESEARCH AND EVALUATION ANALYST CURRENT DRUG THERAPY] Onset: 03-29-2023 Episodic Other [...] UNSPECIFIED; Translations: [LOW BACK PAIN, UNSPECIFIED] Onset: 09-04-2022 Unclassified (3 sources) COUGH, UNSPECIFIED; Translations: [COUGH, [...] Antinuclear Abs, IFA Positive Critically abnormal . [facility] Comment on above: Result Comment: Nega tive <1:80 Borderline 1:80 Positive >1:80 Performed By: #### L IPASE, CBC, CMP #### [facility] [address] Homogeneous Pattern 1:[address] Normal [address] [facility] Comment on above: Result Comment: ICAP nomenclature: AC-1 Performed By: #### L IPASE, CBC, CMP #### [facility] [address] Note 1 Normal . [facility] Comment on above: Result Comment: For more [...] titers Nucleosomes, Histones Drug-induced SLE Speckled Sm, PET ADOPTION COUNSELOR, SCL-70, SLE,MCTD,PSS (diffuse form), SS-A/SS-B Sjogrens Nucleolar SCL-70, PM-1/SCL High titers Scleroderma, PM/DM Centromere Centromere PSS (limited form) w/Crest syndrome variable Nuclear Dot [id number] Primary Biliary Cirrhosis Nuclear GP210, Primary Biliary Cirrhosis Membrane joleen A,B,C Performed at: - [facility] [id number] Throw Out Clerk: Eric Vasquez PhD, Phone: [phone] PERFORMED BY: [facility] [address] [place] [address] PATHOLOGIST DIRECTOR OF INSTRUMENTAL MUSIC HELENA BEVERLY M.D. Performed By: #### L IPASE, CBC, CMP #### [facility] [address] Alanine aminotransferase [En zymatic activity/volume] in Serum or PlasmaOrdered By: Shayy oLzada on 07-21-2023 ALT [Catalytic activity/Vol] 23 U/L 7-52 [facility] Albumin [Mass/volume] in Ser um or Plasma by Bromocresol green (BCG) dye binding methoOrdered By: Shayy Lozada on 07-21-2023 Albumin BCG dye [Mass/Vol] 4.3 g/dL 3.5-5.7 [facility] Alkaline phosphatase [Enzyma tic activity/volume] in Serum or PlasmaOrdered By: Shayy Lozada on 07-21-2023 ALP [Catalytic activity/Vol] 57 U/L 34-104 [facility] Aspartate aminotransferase [ Enzymatic activity/volume] in Serum or PlasmaOrdered By: Shayy Lozada on 07-21-2023 AST [Catalytic activity/Vol] 17 U/L 13-39 [facility] Basophils Auto (Bld) [#/Vol] Ordered By: Shayy Lozada on 07-21-2023 Basophils (Bld) [#/Vol] 0.1 10*3/uL 0.0-0.2 [facility] Basophils/100 WBC Auto (Bld) Ordered By: Shayy Lozada on 07-21-2023 Basophils/100 WBC (Bld) 1.2 % . [facility] Bilirubin.total [Mass/volume ] in Serum or PlasmaOrdered By: Shayy Lozada on 07-21-2023 Bilirubin [Mass/Vol] 0.5 mg/dL 0.3-1.0 [facility] Calcium [Mass/volume] in Ser um or PlasmaOrdered By: Shayy Lozada on 07-21-2023 Calcium [Mass/Vol] 9.4 mg/dL 8.6-10.3 [facility] Carbon dioxide, total [Moles /volume] in Serum or PlasmaOrdered By: Shayy Lozada on 07-21-2023 CO2 [Moles/Vol] 29.8 mmol/L 21.0-31.0 [facility] Chloride [Moles/volume] in [place] or PlasmaOrdered By: Shayy Lozada on 07-21-2023 Chloride [Moles/Vol] 108 mmol/L 98-107 [facility] Complete Blood Count Auto Di ffon 07-21-2023 Basophils (Bld) [#/Vol] 0.1 10*3/uL Normal 0.0-0.2 [facility] Comment on above: Performed By: #### L IPASE, CBC, CMP #### [facility] [address] Basophils/100 WBC (Bld) 1.2 % Normal . [facility] Comment on above: Performed By: #### L IPASE, CBC, CMP #### [address] Eosinophils (Bld) [#/Vol] 0.0 10*3/uL Normal 0.0-0.45 [facility] Comment on above: Performed By: #### L IPASE, CBC, CMP #### [address] Eosinophils/100 WBC (Bld) 0.1 % Normal . [facility] Comment on above: Performed By: #### L IPASE, CBC, CMP #### [address] Erythrocyte distribution width (RBC) [Ratio] 13.2 % Normal 11.9-15.3 [facility] Comment on above: Performed By: #### L IPASE, CBC, CMP #### [address] Hematocrit (Bld) [Volume fraction] 36.6 % Normal 34.0-46.4 [facility] Comment on above: Performed By: #### L IPASE, CBC, CMP #### [place] [address] [place] Hemoglobin (Bld) [Mass/Vol] 12.5 g/dL Normal 11.8-15.4 [facility] Comment on above: Performed By: #### L IPASE, CBC, CMP #### [address] Lymphocytes (Bld) [#/Vol] 1.8 10*3/uL Normal 1.00-4.8 [facility] Comment on above: Performed By: #### L IPASE, CBC, CMP #### [facility] [address] Lymphocytes/100 WBC (Bld) 37.2 % Normal . [facility] Comment on above: Performed By: #### L IPASE, CBC, CMP #### [facility] [address] MCH (RBC) [Entitic mass] 29.7 pg Normal 24.7-34.3 [facility] Comment on above: Performed By: #### L IPASE, CBC, CMP #### [address] MCV (RBC) [Entitic vol] 86.7 fL Normal 80-100 [facility] Comment on above: Performed By: #### L IPASE, CBC, CMP #### [address] Mean Corpuscular HGB Conc 34.2 g/dL Normal 32.0-35.0 [facility] Comment on above: Performed By: #### L IPASE, CBC, CMP #### [place] [address] [place] Monocytes (Bld) [#/Vol] 0.4 10*3/uL Normal 0.0-0.8 [facility] Comment on above: Performed By: #### L IPASE, CBC, CMP #### [place] [address] [place] Monocytes/100 WBC (Bld) 8.9 % Normal . [facility] Comment on above: Performed By: #### L IPASE, CBC, CMP #### [place] [address] [place] Neutrophils (Bld) [#/Vol] 2.5 10*3/uL Normal 1.8-7.7 [facility] Comment on above: Performed By: #### L IPASE, CBC, CMP #### [place] [address] [place] Neutrophils/100 WBC (Bld) 52.6 % Normal . [facility] Comment on above: Performed By: #### L IPASE, CBC, CMP #### [address] NRBC% 0.0 /100{WBC} Normal 0-0.5 [facility] Comment on above: Performed By: #### L IPASE, CBC, CMP #### [address] Platelet mean volume (Bld) [Entitic vol] 7.5 fL Normal 6.3-10.7 [facility] Comment on above: Performed By: #### L IPASE, CBC, CMP #### [address] Platelets (Bld) [#/Vol] 259 10*3/uL Normal 150-450 [facility] Comment on above: Performed By: #### L IPASE, CBC, CMP #### [address] RBC (Bld) [#/Vol] 4.22 10*6/uL Normal 3.60-5.[address] [facility] Comment on above: Performed By: #### L IPASE, CBC, CMP #### [address] WBC (Bld) [#/Vol] 4.8 10*3/uL Normal 3.8-11.6 [facility] Comment on above: Performed By: #### L IPASE, CBC, CMP #### [address] Comprehensive Metabolic Pane sonny 07-21-2023 Albumin [Mass/Vol] 4.3 g/dL Normal 3.5-5.7 [facility] Comment on above: Performed By: #### C MP, CBC, T4F, ESR, TSH3 #### [address] #### TESTF, DHEAS, ZAID #### [facility] , Albumin/Globulin [Mass ratio] 1.9 {ratio} Normal [facility] Comment on above: Performed By: #### C MP, CBC, T4F, ESR, TSH3 #### [address] #### TESTF, DHEAS, ZAID #### [facility] , ALP [Catalytic activity/Vol] 57 U/L Normal 34-104 [facility] Comment on above: Performed By: #### C MP, CBC, T4F, ESR, TSH3 #### [place] [address] [place] #### TESTF, DHEAS, ZAID #### [facility] , ALT [Catalytic activity/Vol] 23 U/L Normal 7-52 [facility] Comment on above: Performed By: #### C MP, CBC, T4F, ESR, TSH3 #### [address] #### TESTF, DHEAS, ZAID #### [facility] , Anion gap [Moles/Vol] 9.6 mmol/L Normal 6.0-15.0 [facility] Comment on above: Performed By: #### C MP, CBC, T4F, ESR, TSH3 #### [address] #### TESTF, DHEAS, ZAID #### [facility] , AST [Catalytic activity/Vol] 17 U/L Normal 13-39 [facility] Comment on above: Performed By: #### C MP, CBC, T4F, ESR, TSH3 #### [place] [address] [place] #### TESTF, DHEAS, ZAID #### [facility] , Bilirubin [Mass/Vol] 0.5 mg/dL Normal 0.3-1.0 [facility] Comment on above: Performed By: #### C MP, CBC, T4F, ESR, TSH3 #### [place] [address] [place] #### TESTF, DHEAS, ZAID #### [facility] , Calcium [Mass/Vol] 9.4 mg/dL Normal 8.6-10.3 [facility] Comment on above: Performed By: #### C MP, CBC, T4F, ESR, TSH3 #### [facility] [address] [place] [address] [place] #### TESTF, DHEAS, ZAID #### [facility] , Chloride [Moles/Vol] 108 mmol/L High 98-107 [facility] Comment on above: Performed By: #### C MP, CBC, T4F, ESR, TSH3 #### [address] #### TESTF, DHEAS, ZAID #### [facility] , CO2 [Moles/Vol] 29.8 mmol/L Normal 21.0-31.0 [facility] Comment on above: Performed By: #### C MP, CBC, T4F, ESR, TSH3 #### [place] [address] [place] #### TESTF, DHEAS, ZAID #### [facility] , Creatinine [Mass/Vol] 0.76 mg/dL Normal 0.60-1.20 [facility] Comment on above: Performed By: #### C MP, CBC, T4F, ESR, TSH3 #### [facility] [address] [place] [address] [place] #### TESTF, DHEAS, ZAID #### [facility] , GFR/1.73 sq M.predicted MDRD (S/P/Bld) [Vol rate/Area] mL/min/{1.73_m2} Normal [facility] Comment on above: Performed By: #### C MP, CBC, T4F, ESR, TSH3 #### [place] [address] [place] #### TESTF, DHEAS, ZAID #### [facility] , Globulin (S) [Mass/Vol] 2.3 g/dL Normal [facility] Comment on above: Performed By: #### C MP, CBC, T4F, ESR, TSH3 #### [address] #### TESTF, DHEAS, ZAID #### [facility] , Glucose [Mass/Vol] 101 mg/dL High 70-100 [facility] Comment on above: Result Comment: [facility] Glucose Reference Range is dependent on time and content of last meal. Glucose of more than 200 mg/dL in a nonstressed, ambulatory subject supports the diagnosis of Diabetes Mellitus. ADA recommended reference range Performed By: #### C MP, CBC, T4F, ESR, TSH3 #### [address] #### TESTF, DHEAS, ZAID #### [facility] , Potassium [Moles/Vol] 4.4 mmol/L Normal 3.5-5.1 [facility] Comment on above: Performed By: #### C MP, CBC, T4F, ESR, TSH3 #### [place] [address] [place] #### TESTF, DHEAS, ZAID #### [facility] , Protein [Mass/Vol] 6.6 g/dL Normal 6.4-8.9 [facility] Comment on above: Performed By: #### C MP, CBC, T4F, ESR, TSH3 #### [place] [address] [place] #### TESTF, DHEAS, ZAID #### [facility] , Sodium [Moles/Vol] 143 mmol/L Normal 136-145 [facility] Comment on above: Performed By: #### C MP, CBC, T4F, ESR, TSH3 #### [place] [address] [place] #### TESTF, DHEAS, ZAID #### [facility] , Urea nitrogen [Mass/Vol] 12 mg/dL Normal 7-25 [facility] Comment on above: Performed By: #### C MP, CBC, T4F, ESR, TSH3 #### [address] #### TESTF, DHEAS, ZAID #### [facility] , Creatinine [Mass/volume] in Serum or PlasmaOrdered By: Shayy Lozada on 07-21-2023 Creatinine [Mass/Vol] 0.76 mg/dL 0.60-1.20 [facility] Dehydroepiandrosterone Sulfa meeta 07-21-2023 Dehydroepiandrosterone Sulfate 135.0 ug/dL Normal 41.2-243.7 [facility] Comment on above: Result Comment: Perf ormed at: - [facility] [address] [id number] Throw Out Clerk: Eric Vasquez PhD, Phone: [phone] Performed By: #### L IPASE, CBC, CMP #### [address] Eosinophils Auto (Bld) [#/Vo l]Ordered By: Shayy Lozada on 07-21-2023 Eosinophils (Bld) [#/Vol] 0.0 10*3/uL 0.0-0.45 [facility] Eosinophils/100 WBC Auto (Bl d)Ordered By: Shayy Lozada on 07-21-2023 Eosinophils/100 WBC (Bld) 0.1 % . [facility] Erythrocyte Sedimentation Ra meeta 07-21-2023 ESR (Bld) [Velocity] 13 mm/h Normal 0-19 [facility] Comment on above: Result Comment: PERF ORMED BY: [place] [address] PATHOLOGIST DIRECTOR OF INSTRUMENTAL MUSIC HELENA BEVERLY M.D. Performed By: #### L IPASE, CBC, CMP #### [address] Erythrocyte distribution wid th Auto (RBC) [Ratio]Ordered By: Shayy Lozada on 07-21-2023 Erythrocyte distribution width (RBC) [Ratio] 13.2 % 11.9-15.3 [facility] Erythrocyte sedimentation ra te by Photometric methodOrdered By: Shayy Lozada on 07-21-2023 ESR Photometric method (Bld) [Velocity] 13 mm/hr 0-19 [facility] Free T4 (Free Thyroxine)on 0 07-21-2023 Free T4 [Mass/Vol] 0.81 ng/dL Normal 0.61-1.12 [facility] Comment on above: Performed By: #### C MP, CBC, T4F, ESR, TSH3 #### [address] #### TESTF, DHEAS, ZAID #### [facility] , Globulin Calc (S) [Mass/Vol] Ordered By: Shayy Lozada on 07-21-2023 Globulin (S) [Mass/Vol] 2.3 g/dL [facility] Glucose [Mass/volume] in Ser um or PlasmaOrdered By: Shayy Lozada on 07-21-2023 Glucose [Mass/Vol] 101 mg/dL 70-100 [facility] Comment on above: ADA recommended refe rence rangeRandom Glucose Reference Range is dependent on time and content of last meal. Glucose of more than 200 mg/dL in a nonstressed, ambulatory subject supports the diagnosis of Diabetes Mellitus. Hematocrit Auto (Bld) [Volum e fraction]Ordered By: Shayy Lozada on 07-21-2023 Hematocrit (Bld) [Volume fraction] 36.6 % 34.0-46.4 [facility] Hemoglobin [Mass/volume] in BloodOrdered By: Shayy Lozada on 07-21-2023 Hemoglobin (Bld) [Mass/Vol] 12.5 g/dL 11.8-15.4 [facility] Leukocytes [#/volume] correc ji for nucleated erythrocytes in Blood by Automated counOrdered By: Shayy Lozada on 07-21-2023 WBC corrected for nucl RBC Auto (Bld) [#/Vol] 4.8 10*3/uL 3.8-11.6 [facility] Lymphocytes Auto (Bld) [#/Vo l]Ordered By: Shayy Lozada on 07-21-2023 Lymphocytes (Bld) [#/Vol] 1.8 10*3/uL 1.00-4.8 [facility] Lymphocytes/100 WBC Auto (Bl d)Ordered By: Shayy Lozada on 07-21-2023 Lymphocytes/100 WBC (Bld) 37.2 % . [facility] MCH Auto (RBC) [Entitic mass ]Ordered By: Shayy Lozada on 07-21-2023 MCH (RBC) [Entitic mass] 29.7 pg 24.7-34.3 [facility] MCHC Auto (RBC) [Mass/Vol]Or dered By: Shayy Lozada on 07-21-2023 MCHC (RBC) [Mass/Vol] 34.2 g/dL 32.0-35.0 [facility] MCV Auto (RBC) [Entitic vol] Ordered By: Shayy Lozada on 07-21-2023 MCV (RBC) [Entitic vol] 86.7 fL 80-100 [facility] Monocytes Auto (Bld) [#/Vol] Ordered By: Shayy Lozada on 07-21-2023 Monocytes (Bld) [#/Vol] 0.4 10*3/uL 0.0-0.8 [facility] Monocytes/100 WBC Auto (Bld) Ordered By: Shayy Lozada on 07-21-2023 Monocytes/100 WBC (Bld) 8.9 % . [facility] Neutrophils Auto (Bld) [#/Vo l]Ordered By: Shayy Lozada on 07-21-2023 Neutrophils (Bld) [#/Vol] 2.5 10*3/uL 1.8-7.7 [facility] Neutrophils/100 WBC Auto (Bl d)Ordered By: Shyay Lozada on 07-21-2023 Neutrophils/100 WBC (Bld) 52.6 % . [facility] No Panel InformationOrdered By: Shayy Lozada on 07-21-2023 Estimated GFR (CKD-EPI) > 60.0 mL/Min [facility] Creatinine Clearance (Chem N/A [facility] Nucleated erythrocytes [Pres ence] in Blood by Automated countOrdered By: Shayy Lozada on 07-21-2023 Nucleated RBC Auto Ql (Bld) 0.0 /100{WBC} 0-0.5 [facility] Platelet mean volume Auto (B ld) [Entitic vol]Ordered By: Shayy Lozada on 07-21-2023 Platelet mean volume (Bld) [Entitic vol] 7.5 fL 6.3-10.7 [facility] Platelets Auto (Bld) [#/Vol] Ordered By: Shayy Lozada on 07-21-2023 Platelets (Bld) [#/Vol] 259 10*3/uL 150-450 [facility] Potassium [Moles/volume] in Serum or PlasmaOrdered By: Shayy Lozada on 07-21-2023 Potassium [Moles/Vol] 4.4 mmol/L 3.5-5.1 [facility] Protein [Mass/volume] in Ser um or PlasmaOrdered By: Shayy Lozada on 07-21-2023 Protein [Mass/Vol] 6.6 g/dL 6.4-8.9 [facility] RBC Auto (Bld) [#/Vol]Ordere d By: Shayy Lozada on 07-21-2023 RBC (Bld) [#/Vol] 4.22 10*6/uL 3.60-5.[address] [facility] Serum or plasma albumin/glob ulin mass ratioOrdered By: Shayy Lozada on 07-21-2023 Albumin/Globulin [Mass ratio] 1.9 {ratio} [facility] Serum or plasma anion gap de terminationOrdered By: Shayy Lozada on 07-21-2023 Anion gap [Moles/Vol] 9.6 mmol/L 6.0-15.0 [facility] Sodium [Moles/volume] in Ser um or PlasmaOrdered By: Shayy Lozada on 07-21-2023 Sodium [Moles/Vol] 143 mmol/L 136-145 [facility] Testosterone,Freeon 07-21-20 Testosterone,Free 1.0 pg/mL Normal 0.0-4.2 [facility] Comment on above: Result Comment: Perf ormed at: BN - [facility] [address], [place], [place] [id number] Throw Out Clerk: Elizabeth Quezada MD, Phone: [phone] Performed By: #### L IPASE, CBC, CMP #### [facility] [address] Thyroid Stimulating Hormoneo n 07-21-2023 TSH Qn 0.39 m[IU]/L Low 0.45-5.33 [facility] Comment on above: Result Comment: PERF ORMED BY: [facility] [address] [place] [address] PATHOLOGIST DIRECTOR OF INSTRUMENTAL MUSIC HELENA BEVERLY M.D. Performed By: #### C MP, CBC, T4F, ESR, TSH3 #### [facility] [address] #### TESTF, DHEAS, ZAID #### [facility] , Thyrotropin [Units/volume] i n Serum or PlasmaOrdered By: Shayy Lozada on 07-21-2023 TSH Qn 0.39 m[IU]/L 0.45-5.33 [facility] Thyroxine (T4) free [Mass/vo lume] in Serum or PlasmaOrdered By: Shayy Lozada on 07-21-2023 Free T4 [Mass/Vol] 0.81 ng/dL 0.61-1.12 [facility] Urea nitrogen [Mass/volume] in Serum or PlasmaOrdered By: Shayy Lozada on 07-21-2023 Urea nitrogen [Mass/Vol] 12 mg/dL 06-22 [facility] WBC Auto (Bld) [#/Vol]Ordere d By: Shayy Lozada on 07-21-2023 WBC (Bld) [#/Vol] 4.8 10*3/uL 3.8-11.6 [facility] Office Visiton 06-02-2023 Follow-up visit [id number] Zakiya Cuello 1975 F Date Provider Department Center 06/02/2023 VICKY JIMÉNEZ ORTHO [facility]TH[facility] Family History Problem Relation Age of Onset Diabetes Mother Diabetes Father Family Status - Relation Status Age at Mother Alive Father Alive Level of Service:62310 DE OFFICE/OUTPATIENT NEW LOW MDM 30-44 MINUTES Reason for Visit and Comments: Pain [136] Normal [facility] Bilirubin Test strip Ql (U)O rdered By: Poli Vázquez on 03-31-2023 Bilirubin Ql (U) Negative Negative [facility] Color Auto (U)Ordered By: Frederick Vázquez on 03-31-2023 Color (U) Yellow Yellow [facility] Ketones Auto test strip (U) [Mass/Vol]Ordered By: Poli Vázquez on 03-31-2023 Ketones (U) [Mass/Vol] Negative Negative [facility] Nitrite Test strip Ql (U)Ord ered By: Poli Vázquez on 03-31-2023 Nitrite Ql (U) Negative Negative [facility] Protein Auto test strip (U) [Mass/Vol]Ordered By: Poli Vázquez on 03-31-2023 Protein (U) [Mass/Vol] Negative Negative [facility] Specific gravity Auto test s trip (U) [Rel density]Ordered By: Poli Vázquez on 03-31-2023 Specific gravity (U) [Rel density] 1.004 1.001-1.030 [facility] Urinalysison 03-31-2023 Appearance (U) Clear Normal Clear [facility] Comment on above: Order Comment: Name Collection Type:: Clean-Voided Midstream Performed By: #### L IPASE, CBC, CMP #### [facility] [address] [place] [address] [place] Bilirubin,Urine Negative Normal Negative [facility] Comment on above: Order Comment: Name Collection Type:: Clean-Voided Midstream Performed By: #### L IPASE, CBC, CMP #### [facility] [address] [place] [id number] [place] Color (U) Yellow Normal Yellow [facility] Comment on above: Order Comment: Name Collection Type:: Clean-Voided Midstream Performed By: #### L IPASE, CBC, CMP #### [facility] [address] [place] [id number] [place] Glucose Ql (U) Normal Normal Normal [facility] Comment on above: Order Comment: Name Collection Type:: Clean-Voided Midstream Performed By: #### L IPASE, CBC, CMP #### [address] Ketones Ql (U) Negative Normal Negative [facility] Comment on above: Order Comment: Name Collection Type:: Clean-Voided Midstream Performed By: #### L IPASE, CBC, CMP #### [address] Leukocyte esterase Test strip Ql (U) Negative Normal Negative [facility] Comment on above: Order Comment: Name Collection Type:: Clean-Voided Midstream Performed By: #### L IPASE, CBC, CMP #### [address] Nitrite,Urine Negative Normal Negative [facility] Comment on above: Order Comment: Name Collection Type:: Clean-Voided Midstream Performed By: #### L IPASE, CBC, CMP #### [address] Occult Blood,Urine Negative Normal Negative [facility] Comment on above: Order Comment: Name Collection Type:: Clean-Voided Midstream Result Comment: PERF ORMED BY: [place] [address] PATHOLOGIST DIRECTOR OF INSTRUMENTAL MUSIC HELENA BEVERLY M.D. Performed By: #### L IPASE, CBC, CMP #### [facility] [address] [place] [address] [place] pH (U) 6.5 [pH] Normal 5.0-9.0 [facility] Comment on above: Order Comment: Name Collection Type:: Clean-Voided Midstream Performed By: #### L IPASE, CBC, CMP #### [place] [address] [place] Protein,Urine Negative Normal Negative [facility] Comment on above: Order Comment: Name Collection Type:: Clean-Voided Midstream Performed By: #### L IPASE, CBC, CMP #### [facility] [address] Specificy [place],Urine 1.004 Normal 1.001-1.030 [facility] Comment on above: Order Comment: Name Collection Type:: Clean-Voided Midstream Performed By: #### L IPASE, CBC, CMP #### [facility] [address] [place] [id number] [facility] Urobilinogen,Urine Normal Normal Normal [facility] Comment on above: Order Comment: Name Collection Type:: Clean-Voided Midstream Performed By: #### L IPASE, CBC, CMP #### [facility] [address] Urine clarity by refractomet ry automatedOrdered By: Poli Vázquez on 03-31-2023 Clarity Refractometry automated (U) Clear Clear [facility] Urine glucose measurement by automated test strip (mass/volume)Ordered By: Poli Vázquez on 03-31-2023 Glucose Auto test strip (U) [Mass/Vol] Normal mg/dL Normal [facility] Urine hemoglobin detection b y automated test stripOrdered By: Poli Vázquez on 03-31-2023 Hemoglobin Auto test strip Ql (U) Negative Negative [facility] Urine leukocyte esterase det ection by automated test stripOrdered By: Poli Vázquez on 03-31-2023 Leukocyte esterase Auto test strip Ql (U) Negative Negative [facility] Urobilinogen Auto test strip (U) [Mass/Vol]Ordered By: Poli Vázquez on 03-31-2023 Urobilinogen (U) [Mass/Vol] Normal mg/dL Normal [facility] pH Auto test strip (U)Ordere d By: Poli Vázquez on 03-31-2023 pH (U) 6.5 [pH] 5.0-9.0 [facility] CT ABD/PELVIS WO CONon 03-25 CT ABD/PELVIS [...] ADEN MASTERSON Date: 2023-03-25 14:39 Normal [facility] ER URINE PROFILEon 3 Bilirubin Ql (U) Negative Normal NEGATIVE [facility] Comment on above: Performed By: #### E BVPROF #### [facility] [address] [place] [address] Dr. Nahomi Arana Clarity (U) CLEAR Normal CLEAR [facility] Comment on above: Performed By: #### E BVPROF #### [facility] [address] [place] [address] [address] Nahomi Arana Color (U) LT. YELLOW Normal YELLOW [facility] Comment on above: Performed By: #### E BVPROF #### [facility] [address] [place] [address] Dr. Nahomi Arana ERUAHD A micrscopic examination will be performed if indicated. Normal [facility] Comment on above: Performed By: #### E BVPROF #### [facility] [address] [place] [address] Dr. Nahomi Arana Glucose Ql (U) Negative Normal NEGATIVE [facility] Comment on above: Performed By: #### E BVPROF #### [facility] [address] [place] [address] Dr. Nahomi Arana Hemoglobin Ql (U) TRACE-INTACT Abnormal NEGATIVE [facility] Comment on above: Performed By: #### E BVPROF #### [facility] [address] [place] [address] Dr. Nahomi Arana Ketones Ql (U) Negative Normal NEGATIVE [facility] Comment on above: Performed By: #### E BVPROF #### [facility] [address] [place] [address] Dr. Nahomi Arana LEUKOCYTES Negative Normal NEGATIVE [facility] Comment on above: Performed By: #### E BVPROF #### [facility] [address] [place] [address] Dr. Nahomi Arana Nitrite Ql (U) Negative Normal NEGATIVE [facility] Comment on above: Performed By: #### E BVPROF #### [facility] [address] [place] [address] Dr. Nahomi Arana pH (U) 5.0 [pH] Normal 5-9 [facility] Comment on above: Performed By: #### E BVPROF #### [facility] [address] [place] [address] Dr. Nahomi Arana SPEC GRAVITY 1.030 Abnormal 1.005-<=1.02 5 [facility] Comment on above: Performed By: #### E BVPROF #### [facility] [address] [place] [address] Dr. Nahomi Arana UA PROTEIN Negative Normal NEGATIVE/ TRACE [facility] Comment on above: Performed By: #### E BVPROF #### [facility] [address] [place] [address] Dr. Nahomi Arana UR MICRO IND INDICATED Normal [facility] Comment on above: Performed By: #### E BVPROF #### [facility] [address] [place] [address] Dr. Nahomi Arana Urobilinogen Qn (U) 0.2 {Jesus'U}/dL Normal 0.2 - 1. 0 [facility] Comment on above: Performed By: #### E BVPROF #### [facility] [address] [place] [address] Dr. Nahomi Arana URINE MICROSCOPIC ONLYon BACTERIA NONE SEEN Normal NONE SEEN [facility] Comment on above: Performed By: #### E BVPROF #### [facility] [address] [place] [address] Dr. Nahomi Arana Bacteria identified Cx Nom (U) NOT INDICATED Normal [facility] Comment on above: Performed By: #### E BVPROF #### [facility] [address] [place] [address] Dr. Nahomi Arana CAST NONE SEEN Normal NONE SEEN [facility] Comment on above: Performed By: #### E BVPROF #### [facility] [address] [place] [address] Dr. Nahomi Arana Crystals LM Nom (Urine sed) NONE SEEN Normal NONE SEEN [facility] Comment on above: Performed By: #### E BVPROF #### [facility] [address] [place] [address] Dr. Nahomi Arana Epithelial cells LM Ql (Urine sed) FEW Abnormal NONE SEEN /RARE [facility] Comment on above: Performed By: #### E BVPROF #### [facility] [address] [place] [address] Dr. Nahomi Arana MUCOUS NONE SEEN Normal NONE SEEN [facility] Comment on above: Performed By: #### E BVPROF #### [facility] [address] [place] [address] Dr. Nahomi Arana RBC 0-2 Normal 0-2 [facility] Comment on above: Performed By: #### E BVPROF #### [facility] [address] [place] [address] Dr. Nahomi Arana WBC NONE SEEN Normal NONE SEEN [facility] Comment on above: Performed By: #### E BVPROF #### [facility] [address] [place] [address] [address] Nahomi Arana MM screening mammo BI w/CADo n 11-13-2022 MM screening mammo BI w/CAD [facility] [place] [address] [place] [address] Mammography Report Signed Patient: Zakiya Cuello MR#: [id number] : 1975 Acct:[id number] Age/Sex: 46 / F ADM Date: 11/06/22 Loc: [place] Room: Type: [facility] Attending Dr: Lake Jensen MD Copies to: [...] Licha Do M.D.11/13/2022 8:29 AM Dictation Location: [facility] Transcribed By: CHRISTY 11/13/2229 Dictated By: Licha Do MD 11/13/22825 Signed By: 11/13/22 0829 Normal [facility] CORTISOLon 09-11-2022 Cortisol 3.7 ug/dL Normal [facility] Comment on above: Result Comment: Sonido isol AM 6.2 - 19.4 Cortisol PM 2.3 - 11.9 Performed By: #### E BVPROF #### [facility] [address] [place] [address] [address] Nahomi Arana BARRY-ZHANG VIRUS (EBV) AB PROFILEon 09-11-2022 EBV Ab VCA, IgG 129.0 U/mL Critically high 0.0-17.9 [facility] Comment on above: Result Comment: Nega tive <18.0 Equivocal 18.0 - 21.9 Positive >21.9 Performed By: #### E BVPROF #### [facility] [address] [place] [address] [address] Nahomi Arana EBV Ab VCA, IgM <36.0 Normal 0.0-35.9 [facility] Comment on above: Result Comment: Nega tive <36.0 Equivocal 36.0 - 43.9 Positive >43.9 Performed By: #### E BVPROF #### [facility] [address] [place] [address] [address] Nahomi Arana EBV Nuclear Antigen Ab, IgG 228.0 U/mL Critically high 0.0-17.9 [facility] Comment on above: Result Comment: Nega tive <18.0 Equivocal 18.0 - 21.9 Positive >21.9 Performed By: #### E BVPROF #### [facility] [address] [place] [address] Dr. Nahomi Arana Interpretation: Comment Normal [facility] Comment on above: Result Comment: EBV Interpretation [...] EBNA. Performed By: #### E BVPROF #### [facility] [address] [address] [address] Nahomi Arana FERRITINon 09-09-2022 Ferritin [Mass/Vol] 79.0 ng/mL Normal 6.2-137.0 [facility] Comment on above: Performed By: #### E BVPROF #### [facility] [address] [address] [address] Nahomi Arana VITAMIN B12on 09-09-2022 Cobalamin (Vitamin B12) [Mass/Vol] 612.0 pg/mL Normal 193.0-986.0 [facility] Comment on above: Performed By: #### E BVPROF #### [facility] [address] [address] [address] Nahomi Arana Albumin [Mass/volume] in Ser um or PlasmaOrdered By: Brendan Mitchell on 09-05-2022 Albumin [Mass/Vol] 3.5 g/dL 3.2-5.5 [facility] Basophils Auto (Bld) [#/Vol] Ordered By: Brendan Mitchell on 09-05-2022 Basophils (Bld) [#/Vol] 0.1 10*3/uL 0.0-0.2 [facility] Basophils/100 WBC Auto (Bld) Ordered By: Brendan Mitchell on 09-05-2022 Basophils/100 WBC (Bld) 1.0 % . [facility] Bilirubin Test strip Ql (U)O rdered By: Brendan Mitchell on 09-05-2022 Bilirubin Ql (U) Negative Negative [facility] Blood hemoglobin measurement (mass/volume)Ordered By: Brendan Mitchell on 09-05-2022 Hemoglobin (Bld) [Mass/Vol] 12.2 g/dL 11.8-15.4 [facility] Blood leukocytes automated c ount (number/volume)Ordered By: Brendan Mitchell on 09-05-2022 WBC (Bld) [#/Vol] 8.1 10*3/uL 4.5-11.0 [facility] CT abdomen pelvis w conon CT abdomen pelvis w con [facility] Main [place] [address] [place] [address] CT Scan Report Signed Patient: Zakiya Cuello MR#: [id number] : 1975 Acct:[id number] Age/Sex: 46 / F ADM Date: 09/05/22 Loc: ER Room: Type: [facility] ER Attending Dr: Copies to: Brendan [...] Garrison Gill M.D.09/05/2022 7:03 PM Dictation Location: [place] [address] Transcribed By: [facility] 09/05/221902 Dictated By: Garrison Gill DO 09/05/221900 Signed By: 09/05/221902 Normal [facility] Color Auto (U)Ordered By: Fish Mitchell on 09-05-2022 Color (U) Dark yellow Yellow [facility] Complete Blood Count Auto Di ffon 09-05-2022 Basophils (Bld) [#/Vol] 0.1 10*3/uL Normal 0.0-0.2 [facility] Comment on above: Result Comment: PERF ORMED BY: [place] [address] PATHOLOGIST DIRECTOR OF INSTRUMENTAL MUSIC HELENA BEVERLY M.D. Performed By: #### L IPASE, CBC, CMP #### [address] Basophils/100 WBC (Bld) 1.0 % Normal . [facility] Comment on above: Performed By: #### L IPASE, CBC, CMP #### [address] Eosinophils (Bld) [#/Vol] 0.2 10*3/uL Normal 0.0-0.45 [facility] Comment on above: Performed By: #### L IPASE, CBC, CMP #### [address] Eosinophils/100 WBC (Bld) 2.9 % Normal . [facility] Comment on above: Performed By: #### L IPASE, CBC, CMP #### [address] Erythrocyte distribution width (RBC) [Ratio] 13.7 % Normal 11.9-15.3 [facility] Comment on above: Performed By: #### L IPASE, CBC, CMP #### [address] Hematocrit (Bld) [Volume fraction] 36.0 % Normal 34.0-46.4 [facility] Comment on above: Performed By: #### L IPASE, CBC, CMP #### [place] [address] [place] Hemoglobin (Bld) [Mass/Vol] 12.2 g/dL Normal 11.8-15.4 [facility] Comment on above: Performed By: #### L IPASE, CBC, CMP #### [place] [address] [place] Lymphocytes (Bld) [#/Vol] 2.6 10*3/uL Normal 1.00-4.8 [facility] Comment on above: Performed By: #### L IPASE, CBC, CMP #### [facility] [address] Lymphocytes/100 WBC (Bld) 32.4 % Normal . [facility] Comment on above: Performed By: #### L IPASE, CBC, CMP #### [facility] [address] MCH (RBC) [Entitic mass] 29.9 pg Normal 24.7-34.3 [facility] Comment on above: Performed By: #### L IPASE, CBC, CMP #### [address] MCV (RBC) [Entitic vol] 88.6 fL Normal 80-100 [facility] Comment on above: Performed By: #### L IPASE, CBC, CMP #### [address] Mean Corpuscular HGB Conc 33.8 g/dL Normal 32.0-35.0 [facility] Comment on above: Performed By: #### L IPASE, CBC, CMP #### [address] Monocytes (Bld) [#/Vol] 0.6 10*3/uL Normal 0.0-0.8 [facility] Comment on above: Performed By: #### L IPASE, CBC, CMP #### [place] [address] [place] Monocytes/100 WBC (Bld) 7.6 % Normal . [facility] Comment on above: Performed By: #### L IPASE, CBC, CMP #### [address] Neutrophils (Bld) [#/Vol] 4.5 10*3/uL Normal 1.8-7.7 [facility] Comment on above: Performed By: #### L IPASE, CBC, CMP #### [address] Neutrophils/100 WBC (Bld) 56.1 % Normal . [facility] Comment on above: Performed By: #### L IPASE, CBC, CMP #### [address] Nucleated RBC/100 WBC (Bld) [Ratio] 0.0 % Normal 0-0.5 [facility] Comment on above: Performed By: #### L IPASE, CBC, CMP #### [address] Platelet mean volume (Bld) [Entitic vol] 7.4 fL Normal 6.3-10.7 [facility] Comment on above: Performed By: #### L IPASE, CBC, CMP #### [address] Platelets (Bld) [#/Vol] 319 10*3/uL Normal 150-450 [facility] Comment on above: Performed By: #### L IPASE, CBC, CMP #### [address] RBC (Bld) [#/Vol] 4.07 10*6/uL Normal 3.60-5.[address] [facility] Comment on above: Performed By: #### L IPASE, CBC, CMP #### [address] WBC (Bld) [#/Vol] 8.1 10*3/uL Normal 4.5-11.0 [facility] Comment on above: Performed By: #### L IPASE, CBC, CMP #### [address] Comprehensive Metabolic Pane sonny 09-05-2022 Albumin [Mass/Vol] 3.5 g/dL Normal 3.2-5.5 [facility] Comment on above: Performed By: #### L IPASE, CBC, CMP #### [address] Albumin/Globulin [Mass ratio] 1.3 {ratio} Normal [facility] Comment on above: Performed By: #### L IPASE, CBC, CMP #### [facility] [address] ALP [Catalytic activity/Vol] 46 U/L Normal 32-92 [facility] Comment on above: Performed By: #### L IPASE, CBC, CMP #### [facility] [address] ALT [Catalytic activity/Vol] 22 U/L Normal 10-60 [facility] Comment on above: Performed By: #### L IPASE, CBC, CMP #### [facility] [address] Anion gap [Moles/Vol] 12.9 mmol/L Normal 6.0-15.0 [facility] Comment on above: Performed By: #### L IPASE, CBC, CMP #### [address] AST [Catalytic activity/Vol] 20 U/L Normal 10-42 [facility] Comment on above: Performed By: #### L IPASE, CBC, CMP #### [address] Bilirubin [Mass/Vol] 0.3 mg/dL Normal 0.3-1.2 [facility] Comment on above: Performed By: #### L IPASE, CBC, CMP #### [facility] [address] [place] [address] [place] Calcium [Mass/Vol] 9.6 mg/dL Normal 8.2-10.2 [facility] Comment on above: Performed By: #### L IPASE, CBC, CMP #### [facility] [address] [place] [address] [place] Chloride [Moles/Vol] 102 mmol/L Normal 95-114 [facility] Comment on above: Performed By: #### L IPASE, CBC, CMP #### [facility] [address] [place] [address] [place] CO2 [Moles/Vol] 27.7 mmol/L Normal 22.0-30.0 [facility] Comment on above: Performed By: #### L IPASE, CBC, CMP #### [address] Creatinine [Mass/Vol] 0.73 mg/dL Normal 0.44-1.03 [facility] Comment on above: Performed By: #### L IPASE, CBC, CMP #### [address] Creatinine Clr Calc Pharmacy 96.11 [facility] Comment on above: Performed By: #### L IPASE, CBC, CMP #### [address] Estimated GFR ( [place] > 60 [facility] Comment on above: Result Comment: GFR estimated reference range: According to KDOQI guidelines, <60 ml/min/1.73m2 is sufficient to diagnose a patient with chronic kidney disease. Performed By: #### L IPASE, CBC, CMP #### [address] Estimated GFR (Non- Am > 60 [facility] Comment on above: Performed By: #### L IPASE, CBC, CMP #### [address] Globulin (S) [Mass/Vol] 2.7 g/dL Normal [facility] Comment on above: Performed By: #### L IPASE, CBC, CMP #### [address] Glucose [Mass/Vol] 115 mg/dL High 70-100 [facility] Comment on above: Result Comment: [place] om Glucose Reference Range is dependent on time and content of last meal. Glucose of more than 200 mg/dL in a nonstressed, ambulatory subject supports the diagnosis of Diabetes Mellitus. ADA recommended reference range Performed By: #### L IPASE, CBC, CMP #### [address] Potassium [Moles/Vol] 3.6 mmol/L Normal 3.5-5.1 [facility] Comment on above: Performed By: #### L IPASE, CBC, CMP #### [facility] [address] [place] [address] [place] Protein [Mass/Vol] 6.2 g/dL Normal 6.1-7.9 [facility] Comment on above: Performed By: #### L IPASE, CBC, CMP #### [facility] [address] [place] [address] [place] Sodium [Moles/Vol] 139 mmol/L Normal 136-146 [facility] Comment on above: Performed By: #### L IPASE, CBC, CMP #### [facility] [address] [place] [address] [place] Urea nitrogen [Mass/Vol] 12 mg/dL Normal 9-23 [facility] Comment on above: Performed By: #### L IPASE, CBC, CMP #### [facility] [address] [place] [address] [place] Creatinine and Glomerular fi ltration rate.predicted panel (S/P/Bld)Ordered By: Brendan Mitchell on 09-05-2022 Creatinine [Mass/Vol] 0.73 mg/dL 0.44-1.03 [facility] ECG 12 lead ECGon 09-05-2022 ECG 12 lead ECG [facility] [place] [address] [place] [address] Electrocardiograph Report Signed Patient: Zakiya Cuello MR#: [id number] : 1975 Acct:[id number] Age/Sex: 46 / F ADM Date: 09/05/22 Loc: ER Room: Type: [facility] ER Attending Dr: Ordering Provider: Brendan Mitchell [...] was found Confirmed by Brendan Mitchell DO ([id number]) on 09/05/2022 8:06:15 PM Referred By: Electronically Signed By:Brendan Mitchell DO Transcribed By: MUS Signed By Brendan Mitchell DO 2 2005 Normal [facility] Eosinophils Auto (Bld) [#/Vo l]Ordered By: Brendan Mitchell on 09-05-2022 Eosinophils (Bld) [#/Vol] 0.2 10*3/uL 0.0-0.45 [facility] Eosinophils/100 WBC Auto (Bl d)Ordered By: Brendan Mitchell on 09-05-2022 Eosinophils/100 WBC (Bld) 2.9 % . [facility] Erythrocyte distribution wid th Auto (RBC) [Ratio]Ordered By: Brendan Mitchell on 09-05-2022 Erythrocyte distribution width (RBC) [Ratio] 13.7 % 11.9-15.3 [facility] Estimated glomerular filtrat ion rate (GFR) non- AmericanOrdered By: Brendan Mitchell on 09-05-2022 GFR/1.73 sq M.predicted among non-blacks MDRD (S/P/Bld) [Vol rate/Area] > 60 mL/Min [facility] Globulin Calc (S) [Mass/Vol] Ordered By: Brendan Mitchell on 09-05-2022 Globulin (S) [Mass/Vol] 2.7 g/dL [facility] Hematocrit Auto (Bld) [Volum e fraction]Ordered By: Brendan Mitchell on 09-05-2022 Hematocrit (Bld) [Volume fraction] 36.0 % 34.0-46.4 [facility] Ketones Auto test strip (U) [Mass/Vol]Ordered By: Brendan Mitchell on 09-05-2022 Ketones (U) [Mass/Vol] Negative [facility] - [facility] and C hemistry - challengeOrdered By: Brendan Mitchell on 09-05-2022 Lipase [Catalytic activity/Vol] 38.0 U/L 22-51 [facility] Laboratory - Hematology and Cell countsOrdered By: Brendan Mitchell on 09-05-2022 Nucleated RBC/100 WBC (Bld) [Ratio] 0.0 % 0-0.5 [facility] Lipaseon 09-05-2022 Lipase [Catalytic activity/Vol] 38.0 U/L Normal 22-51 [facility] Comment on above: Result Comment: PERF ORMED BY: [place] [address] PATHOLOGIST DIRECTOR OF INSTRUMENTAL MUSIC HELENA BEVERLY M.D. Performed By: #### L IPASE, CBC, CMP #### [facility] [address] Lymphocytes Auto (Bld) [#/Vo l]Ordered By: Brendan Mitchell on 09-05-2022 Lymphocytes (Bld) [#/Vol] 2.6 10*3/uL 1.00-4.8 [facility] Lymphocytes/100 WBC Auto (Bl d)Ordered By: Brendan Mitchell on 09-05-2022 Lymphocytes/100 WBC (Bld) 32.4 % . [facility] MCH Auto (RBC) [Entitic mass ]Ordered By: Brendan Mitchell on 09-05-2022 MCH (RBC) [Entitic mass] 29.9 pg 24.7-34.3 [facility] MCHC Auto (RBC) [Mass/Vol]Or dered By: Brendan Mitchell on 09-05-2022 MCHC (RBC) [Mass/Vol] 33.8 g/dL 32.0-35.0 [facility] MCV Auto (RBC) [Entitic vol] Ordered By: Brendan Mitchell on 09-05-2022 MCV (RBC) [Entitic vol] 88.6 fL 80-100 [facility] Monocytes Auto (Bld) [#/Vol] Ordered By: Brendan Mitchell on 09-05-2022 Monocytes (Bld) [#/Vol] 0.6 10*3/uL 0.0-0.8 [facility] Monocytes/100 WBC Auto (Bld) Ordered By: Brendan Mitchell on 09-05-2022 Monocytes/100 WBC (Bld) 7.6 % . [facility] Neutrophils Auto (Bld) [#/Vo l]Ordered By: Brendan Mitchell on 09-05-2022 Neutrophils (Bld) [#/Vol] 4.5 10*3/uL 1.8-7.7 [facility] Neutrophils/100 WBC Auto (Bl d)Ordered By: Brendan Mitchell on 09-05-2022 Neutrophils/100 WBC (Bld) 56.1 % . [facility] Nitrite Test strip Ql (U)Ord ered By: Brendan Mitchell on 09-05-2022 Nitrite Ql (U) Negative Negative [facility] No Panel InformationOrdered By: Brendan Mitchell on 09-05-2022 Estimated GFR () > 60 mL/Min [facility] Comment on above: GFR estimated refere nce range: According to KDOQI guidelines, <60 ml/min/1.73m2 is sufficient to diagnose a patient with chronic kidney disease. Pharmacy Creatinine Clearance (Chem 96.11 [facility] Platelet mean volume Auto (B ld) [Entitic vol]Ordered By: Brendan Mitchell on 09-05-2022 Platelet mean volume (Bld) [Entitic vol] 7.4 fL 6.3-10.7 [facility] Platelets Auto (Bld) [#/Vol] Ordered By: Brendan Mitchell on 09-05-2022 Platelets (Bld) [#/Vol] 319 10*3/uL 150-450 [facility] Protein Auto test strip (U) [Mass/Vol]Ordered By: Brendan Mitchell on 09-05-2022 Protein (U) [Mass/Vol] Negative Negative [facility] Protein [Mass/volume] in Ser um or PlasmaOrdered By: Brendan Mitchell on 09-05-2022 Protein [Mass/Vol] 6.2 g/dL 6.1-7.9 [facility] RBC Auto (Bld) [#/Vol]Ordere d By: Brendan Mitchell on 09-05-2022 RBC (Bld) [#/Vol] 4.07 10*6/uL 3.60-5.[address] [facility] Serum or plasma alanine greene otransferase measurement without P-5'-P (enzymatic activiOrdered By: Brendan Mitchell on 09-05-2022 ALT No additional P-5'-P [Catalytic activity/Vol] 22 U/L 10-60 [facility] Serum or plasma albumin/glob ulin mass ratioOrdered By: Brendan Mitchell on 09-05-2022 Albumin/Globulin [Mass ratio] 1.3 {ratio} [facility] Serum or plasma alkaline rich sphatase measurement (enzymatic activity/volume)Ordered By: Brendan Mitchell on 09-05-2022 ALP [Catalytic activity/Vol] 46 U/L 32-92 [facility] Serum or plasma anion gap de terminationOrdered By: Brendan Mitchell on 09-05-2022 Anion gap [Moles/Vol] 12.9 mmol/L 6.0-15.0 [facility] Serum or plasma aspartate am inotransferase measurement (enzymatic activity/volume)Ordered By: Brendan Mitchell on 09-05-2022 AST [Catalytic activity/Vol] 20 U/L 10-42 [facility] Serum or plasma calcium michell urement (mass/volume)Ordered By: Brendan Mitchell on 09-05-2022 Calcium [Mass/Vol] 9.6 mg/dL 8.2-10.2 [facility] Serum or plasma chloride amber surement (moles/volume)Ordered By: Brendan Mitchell on 09-05-2022 Chloride [Moles/Vol] 102 mmol/L 95-114 [facility] Serum or plasma glucose michell urement (mass/volume)Ordered By: Brendan Mitchell on 09-05-2022 Glucose [Mass/Vol] 115 mg/dL 70-100 [facility] Comment on above: ADA recommended refe rence rangeRandom Glucose Reference Range is dependent on time and content of last meal. Glucose of more than 200 mg/dL in a nonstressed, ambulatory subject supports the diagnosis of Diabetes Mellitus. Serum or plasma potassium me asurement (moles/volume)Ordered By: Brendan Mitchell on 09-05-2022 Potassium [Moles/Vol] 3.6 mmol/L 3.5-5.1 [facility] Serum or plasma sodium measu rement (moles/volume)Ordered By: Brendan Mitchell on 09-05-2022 Sodium [Moles/Vol] 139 mmol/L 136-146 [facility] Serum or plasma total biliru bin measurement (mass/volume)Ordered By: Brendan Mitchell on 09-05-2022 Bilirubin [Mass/Vol] 0.3 mg/dL 0.3-1.2 [facility] Serum or plasma total carbon dioxide measurement (moles/volume)Ordered By: Brendan Mitchell on 09-05-2022 CO2 [Moles/Vol] 27.7 mmol/L 22.0-30.0 [facility] Serum or plasma urea nitroge n measurement (mass/volume)Ordered By: Brendan Mitchell on 09-05-2022 Urea nitrogen [Mass/Vol] 12 mg/dL - [facility] Specific gravity Auto test s trip (U) [Rel density]Ordered By: Brendan Mitchell on 09-05-2022 Specific gravity (U) [Rel density] 1.022 1.001-1.030 [facility] Urinalysison 09-05-2022 Appearance (U) Clear Normal Clear [facility] Comment on above: Order Comment: Name Collection Type:: Clean-Voided Midstream Performed By: #### U A #### [facility] [address] [place] [address] [place] Bilirubin,Urine Negative Normal Negative [facility] Comment on above: Order Comment: Name Collection Type:: Clean-Voided Midstream Performed By: #### U A #### [facility] [address] [place] [id number] [place] Color (U) Dark Yellow Critically abnormal Yellow [facility] Comment on above: Order Comment: Name Collection Type:: Clean-Voided Midstream Performed By: #### U A #### [facility] [address] [place] [address] [place] Glucose Ql (U) Normal Normal Normal [facility] Comment on above: Order Comment: Name Collection Type:: Clean-Voided Midstream Performed By: #### U A #### [facility] [address] [place] [id number] [place] Ketones Ql (U) Negative Normal Negative [facility] Comment on above: Order Comment: Name Collection Type:: Clean-Voided Midstream Performed By: #### U A #### [address] Leukocyte esterase Test strip Ql (U) Negative Normal Negative [facility] Comment on above: Order Comment: Name Collection Type:: Clean-Voided Midstream Performed By: #### U A #### [address] Nitrite,Urine Negative Normal Negative [facility] Comment on above: Order Comment: Name Collection Type:: Clean-Voided Midstream Performed By: #### U A #### [address] Occult Blood,Urine Negative Normal Negative [facility] Comment on above: Order Comment: Name Collection Type:: Clean-Voided Midstream Result Comment: PERF ORMED BY: [place] [address] PATHOLOGIST DIRECTOR OF INSTRUMENTAL MUSIC HELENA BEVERLY M.D. Performed By: #### U A #### [address] pH (U) 6.5 [pH] Normal 5.0-9.0 [facility] Comment on above: Order Comment: Name Collection Type:: Clean-Voided Midstream Performed By: #### U A #### [address] Protein,Urine Negative Normal Negative [facility] Comment on above: Order Comment: Name Collection Type:: Clean-Voided Midstream Performed By: #### U A #### [address] Specificy [place],Urine 1.022 Normal 1.001-1.030 [facility] Comment on above: Order Comment: Name Collection Type:: Clean-Voided Midstream Performed By: #### U A #### [address] Urobilinogen,Urine Normal Normal Normal [facility] Comment on above: Order Comment: Name Collection Type:: Clean-Voided Midstream Performed By: #### U A #### [facility] [address] [place] [id number] [facility] Urine clarity by refractomet ry automatedOrdered By: Brendan Mitchell on 09-05-2022 Clarity Refractometry automated (U) Clear Clear [facility] Urine glucose measurement by automated test strip (mass/volume)Ordered By: Brendan Mitchell on 09-05-2022 Glucose Auto test strip (U) [Mass/Vol] Normal mg/dL Normal [facility] Urine hemoglobin detection b y automated test stripOrdered By: Brendan Mitchell on 09-05-2022 Hemoglobin Auto test strip Ql (U) Negative Negative [facility] Urine leukocyte esterase det ection by automated test stripOrdered By: Brendan Mitchell on 09-05-2022 Leukocyte esterase Auto test strip Ql (U) Negative Negative [facility] Urobilinogen Auto test strip (U) [Mass/Vol]Ordered By: Brendan Mitchell on 09-05-2022 Urobilinogen (U) [Mass/Vol] Normal mg/dL Normal [facility] pH Auto test strip (U)Ordere d By: Brendan Mitchell on 09-05-2022 pH (U) 6.5 [pH] 5.0-9.0 [facility] INSULINon 09-03-2022 Insulin 15.6 uIU/mL Normal 2.6-24.9 [facility] Comment on above: Performed By: #### I NSULIN #### [facility] [address] [place] [address] Dr. Nahomi Arana CBC AUTO DIFFon 09-02-2022 BASO # 0.0 103/ul Normal 0.0-0.1 [facility] Comment on above: Performed By: #### E BVPROF #### [facility] [address] [address] [address] Nahomi Arana Basophils/100 WBC (Bld) 0.5 % Normal 0.2-2.0 [facility] Comment on above: Performed By: #### E BVPROF #### [facility] [address] [address] [address] Nahomi Arana EO # 0.2 103/ul Normal 0.0-0.7 [facility] Comment on above: Performed By: #### E BVPROF #### [facility] [address] [place] [address] Dr. Nahomi Arana Eosinophils/100 WBC (Bld) 2.2 % Normal 0.9-7.0 [facility] Comment on above: Performed By: #### E BVPROF #### [facility] [address] [place] [address] Dr. Nahomi Arana Erythrocyte distribution width (RBC) [Ratio] 13.2 % Normal 11.0-15.0 [facility] Comment on above: Performed By: #### E BVPROF #### [facility] [address] [place] [address] Dr. Nahomi Arana Hematocrit (Bld) [Volume fraction] 39.3 % Normal 36.0-48.0 [facility] Comment on above: Performed By: #### E BVPROF #### [facility] [address] [place] [address] Dr. Nahomi Arana Hemoglobin (Bld) [Mass/Vol] 13.0 g/dL Normal 12.0-16.0 [facility] Comment on above: Performed By: #### E BVPROF #### [facility] [address] [place] [address] Dr. Nahomi Arana IG # 0.02 10e3/ul Normal 0.00-0.03 [facility] Comment on above: Performed By: #### E BVPROF #### [facility] [address] [place] [address] Dr. Nahomi Arana IG % 0.2 % Normal 0.0-0.5 [facility] Comment on above: Performed By: #### E BVPROF #### [facility] [address] [place] [address] Dr. Nahomi Arana LYMPH # 2.2 103/ul Normal 1.2-3.8 [facility] Comment on above: Performed By: #### E BVPROF #### [facility] [address] [place] [address] Dr. Nahomi Arana Lymphocytes/100 WBC (Bld) 25.7 % Normal 20.5-60.0 [facility] Comment on above: Performed By: #### E BVPROF #### [facility] [address] [place] [address] Dr. Nahomi Arana MANUAL DIFF REQ NO Normal [facility] Comment on above: Performed By: #### E BVPROF #### [facility] [address] [place] [address] Dr. Nahomi Arana MCH (RBC) [Entitic mass] 30.0 pg Normal 26.7-34.0 [facility] Comment on above: Performed By: #### E BVPROF #### [facility] [address] [place] [address] Dr. Nahomi Arana MCHC (RBC) [Mass/Vol] 33.1 g/dL Normal 29.9-35.2 [facility] Comment on above: Performed By: #### E BVPROF #### [facility] [address] [place] [address] Dr. Nahomi Arana MCV (RBC) [Entitic vol] 90.6 fL Normal 81.0-99.0 [facility] Comment on above: Performed By: #### E BVPROF #### [facility] [address] [place] [address] Dr. Nahomi Arana MONO # 0.5 103/ul Normal 0.3-0.8 [facility] Comment on above: Performed By: #### E BVPROF #### [facility] [address] [place] [address] Dr. Nahomi Arana Monocytes/100 WBC (Bld) 5.8 % Normal 1.7-12.0 [facility] Comment on above: Performed By: #### E BVPROF #### [facility] [address] [place] [address] Dr. Nahomi Arana NEUT # 5.6 103/ul Normal 1.4-6.5 [facility] Comment on above: Performed By: #### E BVPROF #### [facility] [address] [place] [address] Dr. Nahomi Arana Neutrophils/100 WBC (Bld) 65.6 % Normal 43.0-75.0 [facility] Comment on above: Performed By: #### E BVPROF #### [facility] [address] [place] [address] Dr. Nahomi Arana Platelet mean volume (Bld) [Entitic vol] 9.1 fL Critically low 9.5-13.5 [facility] Comment on above: Performed By: #### E BVPROF #### [facility] [address] [place] [address] Dr. Nahomi Arana PLT 340 103/ul Normal 150-450 [facility] Comment on above: Performed By: #### E BVPROF #### [facility] [address] [place] [address] Dr. Nahomi Arana RBC 4.34 106/ul Normal 4.20-5.40 [facility] Comment on above: Performed By: #### E BVPROF #### [facility] [address] [place] [address] Dr. Nahomi Arana WBC 8.5 103/ul Normal 4.0-11.0 [facility] Comment on above: Performed By: #### E BVPROF #### [facility] [address] [place] [address] Dr. Nahomi Arana CULTURE URINEon 09-02-2022 CULTURE URINE Culture Observations: LIGHT GROWTH OF MIXED GENITAL TOMMY. NO POTENTIAL PATHOGENS SEEN. Normal [facility] Comment on above: Performed By: #### E BVPROF #### [facility] [address] [place] [address] Dr. Nahomi Arana FREE THYROXINE INDEX T7on FTI 2.83 Normal 1.30-4.50 [facility] Comment on above: Performed By: #### C MP, LIPID, TSH, T7 #### [facility] [address] [place] [address] Dr. Nahomi Arana T3U 26.0 % Critically low 30.0-39.0 [facility] Comment on above: Performed By: #### C MP, LIPID, TSH, T7 #### [facility] [address] [place] [address] Dr. Nahomi Arana T4 [Mass/Vol] 10.90 ug/dL Normal 4.80-13.90 [facility] Comment on above: Performed By: #### C MP, LIPID, TSH, T7 #### [facility] [address] [place] [address] Dr. Nahomi Arana GLYCOHEMOGLOBIN A1Con 2021 ADA RECOMMENDATION SEE BELOW Normal [facility] Comment on above: Result Comment: ADA RECOMMENDED LIMIT 4.0 - 6.0 ADA THERAPEUTIC TARGET < 7.0 ACTION SUGGESTED > 7.0 Performed By: #### E BVPROF #### [facility] [address] [place] [address] Dr. Nahomi Arana Glucose [Mass/Vol] 108 mg/dL Normal [facility] Comment on above: Performed By: #### E BVPROF #### [facility] [address] [place] [address] Dr. Nahomi Arana HbA1c (Bld) [Mass fraction] 5.4 % Normal 4.5-6.2 [facility] Comment on above: Performed By: #### E BVPROF #### [facility] [address] [place] [address] Dr. Nahomi Arana IRONon 09-02-2022 Iron [Mass/Vol] 84.0 ug/dL Normal 50.0-170.0 [facility] Comment on above: Performed By: #### I ALISHA CHÁVEZ #### [facility] [address] [place] [address] Dr. Nahomi Arana LIPID PROFILEon 09-02-2022 CHOL-HDL RATIO NORM SEE BELOW Normal [facility] Comment on above: Result Comment: 3.3 - 4.4 LOW RISK 4.4 - 7.1 AVERAGE RISK 7.1 - 11.0 MODERATE RISK >11.0 HIGH RISK Performed By: #### C MP, LIPID, TSH, T7 #### [facility] [address] [place] [address] Dr. Nahomi Arana Cholesterol [Mass/Vol] 201 mg/dL Critically high <=200 [facility] Comment on above: Performed By: #### C MP, LIPID, TSH, T7 #### [facility] [address] [address] [address] Nahomi Arana Cholesterol in HDL [Mass/Vol] 57 mg/dL Normal 40-60 [facility] Comment on above: Performed By: #### C MP, LIPID, TSH, T7 #### [facility] [address] [address] [address] Nahomi Arana Cholesterol in LDL [Mass/Vol] 101.6 mg/dL Normal [facility] Comment on above: Performed By: #### C MP, LIPID, TSH, T7 #### [facility] [address] [address] [address] Nahomi Arana Cholesterol.total/Cholest damion in HDL [Mass ratio] 3.5 {ratio} Normal [facility] Comment on above: Performed By: #### C MP, LIPID, TSH, T7 #### [facility] [address] [address] [address] Nahomi Arana HDL NORMAL > or = 60 mg/dl - LOW CARDIOVASCULAR RISK <40 mg/dl - HIGH CARDIOVASCULAR RISK Normal [facility] Comment on above: Performed By: #### C MP, LIPID, TSH, T7 #### [facility] [address] [address] [address] Nahomi Arana LDL CALC NORMAL SEE BELOW Normal [facility] Comment on above: Result Comment: <100 mg/dl OPTIMAL 100 - 129 mg/dl NEAR OR ABOVE OPTIMAL 130 - 159 mg/dl BORDERLINE HIGH 160 - 189 mg/dl HIGH >190 mg/dl VERY HIGH Performed By: #### C MP, LIPID, TSH, T7 #### [facility] [address] [address] [address] Nahomi Arana Triglyceride [Mass/Vol] 212 mg/dL Critically high <=150 [facility] Comment on above: Performed By: #### C MP, LIPID, TSH, T7 #### [facility] [address] [address] [address] Nahomi Arana VLDL CALC 42.4 mg/dL Normal [facility] Comment on above: Performed By: #### C MP, LIPID, TSH, T7 #### [facility] [address] [place] [address] Dr. Nahomi Arana PROF 14(COMP METB)on 022 Albumin [Mass/Vol] 3.7 g/dL Normal 3.4-5.0 [facility] Comment on above: Performed By: #### C MP, LIPID, TSH, T7 #### [facility] [address] [place] [address] Dr. Nahomi Arana Albumin/Globulin [Mass ratio] 1.1 {ratio} Normal [facility] Comment on above: Performed By: #### C MP, LIPID, TSH, T7 #### [facility] [address] [place] [address] Dr. Nahomi Arana ALP [Catalytic activity/Vol] 59 U/L Normal 46-116 [facility] Comment on above: Performed By: #### C MP, LIPID, TSH, T7 #### [facility] [address] [place] [address] Dr. Nahomi Arana ALT [Catalytic activity/Vol] 26 U/L Normal 14-59 [facility] Comment on above: Performed By: #### C MP, LIPID, TSH, T7 #### [facility] [address] [place] [address] Dr. Nahomi Arana Anion gap [Moles/Vol] 8.6 mmol/L Normal [facility] Comment on above: Performed By: #### C MP, LIPID, TSH, T7 #### [facility] [address] [place] [address] Dr. Nahomi Arana AST [Catalytic activity/Vol] 13 U/L Critically low 15-37 [facility] Comment on above: Performed By: #### C MP, LIPID, TSH, T7 #### [facility] [address] [place] [address] Dr. Nahomi Arana Bilirubin [Mass/Vol] 0.4 mg/dL Normal 0.2-1.0 [facility] Comment on above: Performed By: #### C MP, LIPID, TSH, T7 #### [facility] [address] [place] [address] Dr. Nahomi Arana Calcium [Mass/Vol] 9.4 mg/dL Normal 8.5-10.1 [facility] Comment on above: Performed By: #### C MP, LIPID, TSH, T7 #### [facility] [address] [place] [address] Dr. Nahomi Arana Chloride [Moles/Vol] 104 mmol/L Normal 98-107 [facility] Comment on above: Performed By: #### C MP, LIPID, TSH, T7 #### [facility] [address] [place] [address] Dr. Nahomi Arana CO2 [Moles/Vol] 31.5 mmol/L Normal 21.0-32.0 [facility] Comment on above: Performed By: #### C MP, LIPID, TSH, T7 #### [facility] [address] [place] [address] Dr. Nahomi Arana Creatinine [Mass/Vol] 0.80 mg/dL Normal 0.55-1.02 [facility] Comment on above: Performed By: #### C MP, LIPID, TSH, T7 #### [facility] [address] [place] [address] Dr. Nahomi Arana EGFR-AF BARBADIAN >60 Normal >=60 [facility] Comment on above: Performed By: #### C MP, LIPID, TSH, T7 #### [facility] [address] [place] [address] Dr. Nahomi Arana EGFR-NON AF [place]IAN >60 Normal >=60 [facility] Comment on above: Performed By: #### C MP, LIPID, TSH, T7 #### [facility] [address] [place] [address] Dr. Nahomi Arana Globulin (S) [Mass/Vol] 3.5 g/dL Normal [facility] Comment on above: Performed By: #### C MP, LIPID, TSH, T7 #### [facility] [address] [place] [address] Dr. Nahomi Arana Glucose [Mass/Vol] 96 mg/dL Normal 74-106 [facility] Comment on above: Performed By: #### C MP, LIPID, TSH, T7 #### [facility] [address] [place] [address] Dr. Nahomi Arana Potassium [Moles/Vol] 4.1 mmol/L Normal 3.5-5.1 [facility] Comment on above: Performed By: #### C MP, LIPID, TSH, T7 #### [facility] [address] [place] [address] Dr. Nahomi Arana Protein [Mass/Vol] 7.2 g/dL Normal 6.4-8.2 [facility] Comment on above: Performed By: #### C MP, LIPID, TSH, T7 #### [facility] [address] [place] [address] Dr. Nahomi Arana Sodium [Moles/Vol] 140 mmol/L Normal 136-145 [facility] Comment on above: Performed By: #### C MP, LIPID, TSH, T7 #### [facility] [address] [place] [address] Dr. Nahomi Arana Urea nitrogen [Mass/Vol] 12.0 mg/dL Normal 7.0-18.0 [facility] Comment on above: Performed By: #### C MP, LIPID, TSH, T7 #### [facility] [address] [place] [address] Dr. Nahomi Arana Urea nitrogen/Creatinine [Mass ratio] 15.0 mg/mg Normal [facility] Comment on above: Performed By: #### C MP, LIPID, TSH, T7 #### [facility] [address] [place] [address] Dr. Nahomi Arana TSHon 09-02-2022 TSH 0.743 uIU/mL Normal 0.358-3.740 [facility] Comment on above: Performed By: #### C MP, LIPID, TSH, T7 #### [facility] [address] [place] [address] Dr. Nahomi Arana UA RANDOM W/MICROSCOPICon BACTERIA TRACE Abnormal NONE SEEN [facility] Comment on above: Performed By: #### U AMIC #### [facility] [address] [place] [address] Dr. Nahomi Arana Bilirubin Ql (U) Negative Normal NEGATIVE [facility] Comment on above: Performed By: #### U AMIC #### [facility] [address] [address] [address] Nahomi Arana CAST NONE SEEN Normal NONE SEEN [facility] Comment on above: Performed By: #### U AMIC #### [facility] [address] [address] [address] Nahomi Arana Clarity (U) CLEAR Normal CLEAR [facility] Comment on above: Performed By: #### U AMIC #### [facility] [address] [address] [address] Nahomi Arana Color (U) YELLOW Normal YELLOW [facility] Comment on above: Performed By: #### U AMIC #### [facility] [address] [place] [address] Dr. Nahomi Arana Crystals LM Nom (Urine sed) NONE SEEN Normal NONE SEEN [facility] Comment on above: Performed By: #### U AMIC #### [facility] [address] [place] [address] Dr. Nahomi Arana Epithelial cells LM Ql (Urine sed) RARE Normal NONE SEEN /RARE [facility] Comment on above: Performed By: #### U AMIC #### [facility] [address] [place] [address] Dr. Nahomi Arana Glucose Ql (U) Negative Normal NEGATIVE The [facility] Comment on above: Performed By: #### U AMIC #### [facility] [address] [address] [address] Nahomi Arana Hemoglobin Ql (U) Negative Normal NEGATIVE [facility] Comment on above: Performed By: #### U AMIC #### [facility] [address] [address] [address] Nahomi Arana Ketones Ql (U) Negative Normal NEGATIVE The [facility] Comment on above: Performed By: #### U AMIC #### [facility] [address] [address] [address] Nahmoi Arana LEUKOCYTES Negative Normal NEGATIVE [facility] Comment on above: Performed By: #### U AMIC #### [facility] [address] [place] [address] Dr. Nahomi Arana MUCOUS TRACE Abnormal NONE SEEN [facility] Comment on above: Performed By: #### U AMIC #### [facility] [address] [place] [address] Dr. Nahomi Arana Nitrite Ql (U) Negative Normal NEGATIVE [facility] Comment on above: Performed By: #### U AMIC #### [facility] [address] [place] [address] Dr. Nahomi Arana pH (U) 5.5 [pH] Normal 5-9 [facility] Comment on above: Performed By: #### U AMIC #### [facility] [address] [place] [address] Dr. Nahomi Arana RBC 0-2 Normal 0-2 [facility] Comment on above: Performed By: #### U AMIC #### [facility] [address] [place] [address] Dr. Nahomi Arana SPEC GRAVITY >=1.030 Abnormal 1.005-<=1.02 5 [facility] Comment on above: Performed By: #### U AMIC #### [facility] [address] [place] [address] Dr. Nahomi Arana UA PROTEIN Negative Normal NEGATIVE/ TRACE [facility] Comment on above: Performed By: #### U AMIC #### [facility] [address] [place] [address] Dr. Nahomi Arana Urobilinogen Qn (U) 0.2 {Jesus'U}/dL Normal 0.2 - 1. 0 [facility] Comment on above: Performed By: #### U AMIC #### [facility] [address] [place] [address] Dr. Nahomi Arana WBC 0-2 Abnormal NONE SEEN [facility] Comment on above: Performed By: #### U AMIC #### [facility] [address] [place] [address] Dr. Nahomi Arana VITAMIN D 25 OHon 09-02-2022 VIT D 25-OH 29.5 ng/mL Normal [facility] Comment on above: Performed By: #### I KYLER VITAD #### [facility] [address] [place] [address] Dr. Nahomi Arana VIT D RANGES SEE BELOW Normal [facility] Comment on above: Result Comment: <20 ng/mL Vit D deficient 20 - <30 ng/mL Vit D insufficient 30 - 100 ng/mL Vit D sufficient >100 ng/mL Potential Toxicity Performed By: #### I KYLER VITAD #### [facility] [address] [place] [address] Dr. Nahomi Arana PAP ACOG PANEL 2: 30 to 65on 07-10-2022 . . Normal [facility] Comment on above: Result Comment: Perf ormed at: WB Performed By: #### E BVPROF #### [facility] [address] [place] [address] Dr. Nahomi Arana Age Gdln ACOG Testing 30-65 Normal [facility] Comment on above: Performed By: #### E BVPROF #### [facility] [address] [place] [address] Dr. Nahomi Arana DIAGNOSIS: Comment Normal [facility] Comment on above: Result Comment: NEGA TIVE FOR INTRAEPITHELIAL LESION OR MALIGNANCY. Performed at: WB Performed By: #### E BVPROF #### [facility] [address] [place] [address] Dr. Nahomi Arana HPV Aptima Negative Normal Negative [facility] Comment on above: Result Comment: This nucleic acid amplification test detects fourteen high-risk HPV types (16,18,31,33,35,39,45,51,52,56,58,59,66,68) without differentiation. Performed at: =G Performed By: #### E BVPROF #### [facility] [address] [place] [address] Dr. Nahomi Arana Methodology: Comment Normal [facility] Comment on above: Result Comment: This liquid based ThinPrep(R) pap test was screened with the use of an image guided system. Performed at: WB Performed By: #### E BVPROF #### [facility] [address] [place] [address] Dr. Nahomi Arana Note: Comment Normal [facility] Comment on above: Result Comment: The [...] WB Performed By: #### E BVPROF #### [facility] [address] [place] [address] Dr. Nahomi Arana Performed by: Comment Normal [facility] Comment on above: Result Comment: Sabra Bryant, Media Promoter (ASCP) Performed at: WB Performed By: #### E BVPROF #### [facility] [address] [place] [address] Dr. Nahomi Arana Specimen adequacy: Comment Normal [facility] Comment on above: Result Comment: Sati sfactory for evaluation. No endocervical component is identified. Performed at: WB Performed By: #### E BVPROF #### [facility] [address] [place] [address] Dr. Nahomi Arana Covid-19 PCR (CVDTBH)on 04-30 SARS-CoV-2 (COVID-19) RNA ORTIZ+probe Ql (Unsp spec) Detected Critically abnormal NOT DETECTED [facility] Comment on above: Result Comment: This test is not yet approved or cleared by the [place] FDA. When there are no FDA-approved or cleared tests available, and other criteria are met, FDA can make tests available under an emergency access mechanism called an Emergency Use Authorization (EUA). The EUA for this test is supported by the Forming Machine Operator of Health and Human Service's declaration that [...] used). Performed By: #### C VDTBH #### [facility] [address] [address] [address] Nahomi Arana ZAID by IFAon 12-09-2021 ZAID Pattern Negative Normal [facility] Comment on above: Performed By: #### W SR, VITD, C3COMP, C4COMP, CRP, ENAID, CCP, ANAIFS, RF, DNAAB, CK ####[address] [address] [address] [place], [place] [phone] ZAID Titer Negative Normal Negative [facility] Comment on above: Result Comment: Norm al range : negative at <1:80 serum dilution. Performed By: #### W SR, VITD, C3COMP, C4COMP, CRP, ENAID, CCP, ANAIFS, RF, DNAAB, CK ####[address] [phone] Nuclear Ab IF (S) [Titer] Negative Normal Negative [facility] Comment on above: Result Comment: [...] CRP, ENAID, CCP, ANAIFS, RF, DNAAB, CK ####[address] [phone] C-Reactive Proteinon 022 C-Reactive Protein 0.3 mg/dL Normal <0.9 [facility] Comment on above: Performed By: #### W SR, VITD, C3COMP, C4COMP, CRP, ENAID, CCP, ANAIFS, RF, DNAAB, CK ####[address] [address] [address] [place], [place] [phone] C3 Complementon 12-09-2021 C3 Complement 167 mg/dL High 86-166 [facility] Comment on above: Performed By: #### W SR, VITD, C3COMP, C4COMP, CRP, ENAID, CCP, ANAIFS, RF, DNAAB, CK ####[address] [place], [place] [phone] C4 Complementon 12-09-2021 C4 Complement 21 mg/dL Normal 13-46 [facility] Comment on above: Performed By: #### W SR, VITD, C3COMP, C4COMP, CRP, ENAID, CCP, ANAIFS, RF, DNAAB, CK ####[address] [phone] CCP Antibody, IgGon 12-09-19 22 CCP Antibody, IgG <15 Normal <20 [facility] Comment on above: Result Comment: < 20 units: Negative 20-39 units: Weak Positive 40-59 units: Moderate Positive > 60 units: Strong Positive The following results were obtained with the [employer] QUANTA Lite CCP3 IgG ANGELICA. Anti-CCP values obtained with different manufacturers' assay methods may not be used interchangeably. The magnitude of the reported IgG levels cannot be correlated to an endpoint titer. Performed By: #### W SR, VITD, C3COMP, C4COMP, CRP, ENAID, CCP, ANAIFS, RF, DNAAB, CK ####[address] [place], [place] [phone] CKon 12-09-2021 CK [Catalytic activity/Vol] 117 U/L Normal 42-196 [facility] Comment on above: Performed By: #### W SR, VITD, C3COMP, C4COMP, CRP, ENAID, CCP, ANAIFS, RF, DNAAB, CK ####[address] [place], [place] [phone] CNOVon 12-09-2021 CNOV Office Visit (RHEUMN) ---- YONATANZAKIYA ([id number]) 1975 F Date Time Provider Department 12/09/21 [...] (human papilloma virus) infection - Hyperlipidemia 09/2015 [id number] - Migraine - Neuropathy Diagnosis made by [...] Lysis of adhesions.Monarc transobturator midurethral sling, ref [id number], lot [id number]. 4. Posterior repair. - REMOVAL ADENOIDS,PRIMARY,<1 2 [...] LEAST 35 (more content not included)... Normal [facility] DNA Antibodyon 12-09-2021 DNA Antibody 16 IU/mL Normal <30 [facility] Comment on above: Result Comment: Nega tive for ds DNA Antibodies Negative: <30 IU/mL Equivocal: 30-74 IU/mL Positive: >74 IU/mL Performed By: #### W SR, VITD, C3COMP, C4COMP, CRP, ENAID, CCP, ANAIFS, RF, DNAAB, CK ####[address] [place], [place] [phone] JAMEEL Antibody Panelon 022 Centromere <0.2 Normal <1.0 [facility] Comment on above: Result Comment: NEGA TIVE Negative: <1.0 AI Positive: >0.9 AI Test performed using the Multiplex Flow Immunoassay technology. Performed By: #### W SR, VITD, C3COMP, C4COMP, CRP, ENAID, CCP, ANAIFS, RF, DNAAB, CK ####[address] [place], [place] [phone] Chromatin Antibody <0.2 Normal <1.0 [facility] Comment on above: Result Comment: NEGA TIVE Negative: <1.0 AI Positive: >0.9 AI Test performed using the Multiplex Flow Immunoassay technology. Performed By: #### W SR, VITD, C3COMP, C4COMP, CRP, ENAID, CCP, ANAIFS, RF, DNAAB, CK ####[address] [address] [address] [facility] [place], [place] [phone] NICOLE 1 Antibody <0.2 Normal <1.0 [facility] Comment on above: Result Comment: NEGA TIVE Negative: <1.0 AI Positive: >0.9 AI Test performed using the Multiplex Flow Immunoassay technology. Performed By: #### W SR, VITD, C3COMP, C4COMP, CRP, ENAID, CCP, ANAIFS, RF, DNAAB, CK ####[address] [phone] Ribosomal PET ADOPTION COUNSELOR <0.2 Normal <1.0 [facility] Comment on above: Result Comment: NEGA TIVE Negative: <1.0 AI Positive: >0.9 AI Test performed using the Multiplex Flow Immunoassay technology. Performed By: #### W SR, VITD, C3COMP, C4COMP, CRP, ENAID, CCP, ANAIFS, RF, DNAAB, CK ####[address] [phone] PET ADOPTION COUNSELOR Antibody <0.2 Normal <1.0 [facility] Comment on above: Result Comment: NEGA TIVE Negative: <1.0 AI Positive: >0.9 AI Test performed using the Multiplex Flow Immunoassay technology. Performed By: #### W SR, VITD, C3COMP, C4COMP, CRP, ENAID, CCP, ANAIFS, RF, DNAAB, CK ####[address] [phone] Scleroderma IgG Ab <0.2 Normal <1.0 [facility] Comment on above: Result Comment: NEGA TIVE Negative: <1.0 AI Positive: >0.9 AI Test performed using the Multiplex Flow Immunoassay technology. Performed By: #### W SR, VITD, C3COMP, C4COMP, CRP, ENAID, CCP, ANAIFS, RF, DNAAB, CK ####[address] [phone] Sm Antibody <0.2 Normal <1.0 [facility] Comment on above: Result Comment: NEGA TIVE Negative: <1.0 AI Positive: >0.9 AI Test performed using the Multiplex Flow Immunoassay technology. Performed By: #### W SR, VITD, C3COMP, C4COMP, CRP, ENAID, CCP, ANAIFS, RF, DNAAB, CK ####[address] [place], [place] [phone] SSA Antibody <0.2 Normal <1.0 [facility] Comment on above: Result Comment: NEGA TIVE Negative: <1.0 AI Positive: >0.9 AI Test performed using the Multiplex Flow Immunoassay technology. Performed By: #### W SR, VITD, C3COMP, C4COMP, CRP, ENAID, CCP, ANAIFS, RF, DNAAB, CK ####[address] [address] [address], [place] [phone] SSB Antibody <0.2 Normal <1.0 [facility] Comment on above: Result Comment: NEGA TIVE Negative: <1.0 AI Positive: >0.9 AI Test performed using the Multiplex Flow Immunoassay technology. Performed By: #### W SR, VITD, C3COMP, C4COMP, CRP, ENAID, CCP, ANAIFS, RF, DNAAB, CK ####[address], [place] [phone] Rheumatoid Factoron 12-09-19 22 Rheumatoid Factor <10 Normal <16 [facility] Comment on above: Performed By: #### W SR, VITD, C3COMP, C4COMP, CRP, ENAID, CCP, ANAIFS, RF, DNAAB, CK ####[address] [address] [address], [place] [phone] Sed Rate Westergrenon 2021 Sed Rate Westergren 20 mm/hr Normal 0-20 [facility] Comment on above: Performed By: #### W SR, VITD, C3COMP, C4COMP, CRP, ENAID, CCP, ANAIFS, RF, DNAAB, CK ####[address] [place], [place] [phone] Urinalysison 12-09-2021 Bilirubin, Urine Negative Normal Negative [facility] Comment on above: Performed By: #### U A ####[address] [address] [address] [phone] Clarity (U) Clear Normal Clear [facility] Comment on above: Performed By: #### U A ####[address] [phone] Color (U) Straw Critically abnormal Yellow [facility] Comment on above: Performed By: #### U A ####[address] [phone] Comments SEE COMMENT Normal [facility] Comment on above: Result Comment: Micr oscopic Examination Performed Performed By: #### U A ####[address] [phone] Epithelial cells LM Ql (Urine sed) SEE COMMENT Normal [facility] Comment on above: Result Comment: Few Squamous Epithelial Cells Performed By: #### U A ####[address] [phone] Glucose Ql (U) Negative Normal Negative [facility] Comment on above: Performed By: #### U A ####[address] [phone] Hemoglobin/Blood,Ur 1+ Critically abnormal Negative [facility] Comment on above: Performed By: #### U A ####[address] [phone] Ketones Ql (U) Negative Normal Negative [facility] Comment on above: Performed By: #### U A ####[address] [address] [address] [phone] Leukest Negative Normal Negative [facility] Comment on above: Performed By: #### U A ####[address] [phone] Nitrite Ql (U) Negative Normal Negative [facility] Comment on above: Performed By: #### U A ####[address] [address] [address], [place] [phone] pH (U) 6.0 [pH] Normal 5.0-8.0 [facility] Comment on above: Performed By: #### U A ####[address] [address] [address] [place], [place] [phone] Protein, Urine Negative Normal Negative [facility] Comment on above: Performed By: #### U A ####[address] [address] [address] [place], [place] [phone] RBC 0-3 Normal 0-3 [facility] Comment on above: Performed By: #### U A ####[address] [phone] Specific [place], Ur 1.008 Normal 1.005-1.030 [facility] Comment on above: Performed By: #### U A ####[address] [address] [address] [place], [place] [phone] Urine Abdirizak Comment SEE COMMENT Normal [facility] Comment on above: Result Comment: N/A Performed By: #### U A ####[address] [address] [address] [place], [place] [phone] Urobilinogen (U) [Mass/Vol] Negative Normal Negative [facility] Comment on above: Performed By: #### U A ####[address] [address] [address], [place] [phone] WBC 0-5 Normal 0-5 [facility] Comment on above: Performed By: #### U A ####[address] [address] [address] [place], [place] [phone] Vitamin D 25 Hydroxyon 12-09 Vitamin D 25 Hydroxy 27.5 ng/mL Low 31.0-80.0 [facility] Comment on above: Result Comment: Clas sification of 25 [place] Vitamin D status: Insufficiency/Moderate Deficiency: < or = 30 ng/mL Sufficiency/Optimal Levels: 31 to 80 ng/mL Toxicity: > 100 ng/mL Test performed by chemiluminescent immunoassay. Performed By: #### W SR, VITD, C3COMP, C4COMP, CRP, ENAID, CCP, ANAIFS, RF, DNAAB, CK ####[facility] [id number] [place], [place] [phone] XR HAND 3V PA/LAT/OBL BILon 12-09-2021 XR [...] No other significant abnormality. ------- IMPRESSION: OSTEOARTHRITIS Squeezer Operator: CELSO Transcribe Date/Time: Dec 09 2021 3:11P Dictated by : MIRIAM BILL MD This examination was interpreted and the report reviewed and electronically signed by: MIRIAM BILL MD on Dec 09 2021 3:12PM EST [id number] Normal [facility] CNOVon 08-14-2021 CNOV Office Visit (GYNMN) ---- ZAKIYA CUELLO ([id number]) 1975 F Date Time Provider Department 08/14/21 1:30 PM FATOUMATA WILD GYNRAMESH During your visit today, we recorded the [...] (human papilloma virus) infection - Hyperlipidemia 09/2015 [id number] - Migraine - Neuropathy Diagnosis made by [...] Lysis of adhesions.Monarc transobturator midurethral sling, ref [id number], lot [id number]. 4. Posterior repair. 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 Visit office engineer present: Berna Sethi MA GEN: Pleasant, cooperative, NAD SKIN: Color, texture, turgor nl. Warm, dry. ENDO: No obvious hirsutism signs. EYES: Conjunctivae clear. No discoloration. NECK: No mass LUNGS: Breathing comfortably without distress, CTAB HEART: RRR, no r/g ABDOMEN: Soft. NTND. No masses. PELVIC: external genitalia normal, normal Bartholin's glands, urethra, Kemp's glands, no vulvar lesions, good vaginal support, physiologic discharge present, normal appearing perineal body and perianal region. No cervical lesions. BIMANUAL: no adnexal masses and non-tender. uterus normal size, shape and consistency THE FOLLOWIN (more content not included)... Normal [facility] 05-08-2021 CNPN Telephone (CAROLBMN) ---- ZAKIYA CUELLO ([id number]) 1975 F Date Time Provider Department 05/08/21 TAMELA VASQUEZ During your visit today, we recorded the following information about you: Tamela aVsquez MD 05/08/2021 2:54 PM Signed I called [...] Encounter Status:Closed by TAMELA VASQUEZ on 05/08/21 [facility] OBSOLETEon 05-01-2021 OBSOLETE Refill (GYNMN) ---- ZAKIYA CUELLO ([id number]) 1975 F Date Time Provider Department 05/01/21 FATOUMATA WILD During your visit today, we recorded the following information about you: Cheryl Leigh RN 05/02/2021 1:29 PM Signed Attempted to call pt. Message left to call office. Please Verify Rx renewal and pharmacy. 11/14/20 Cheryl Leigh RN May 02, 2021 1:29 PM Zehra Etienne [facility] 05/02/2021 2:51 PM Signed Patient returning nurse call She do need refill She feell she might need a higher dosage because she still have breast shrinkage. Please call and advise the patient at [phone] Thank you Zehra Jiang E- [id number] [place] [address] [address] [phone] [address] [address] Zehra Rivera RN 05/02/2021 3:33 PM Signed [...] Encounter Status:Closed by NUNO RIVERA on 05/02/21 [facility] CNOVon 04-22-2021 CNOV Office Visit (DERMMN) ---- ZAKIYA [id number]) 1975 F Date Time Provider Department 04/22/21 9:00 AM TAMELA VASQUEZ During your visit today, we [...] Past Histories independently gathered by the clinical field support technician and the remaining scribed note accurately describes [...] effluvium [L65.0] Order(s):ZINC BLD [SQZINC] Order #: [id number] FUTURE IRON + TIBC [SQIRON] Order #: [id number] FUTURE FERRITIN BLD [SQFERR] Order #: [id number] FUTURE VITAMIN D 25 HYDROXY [SQVITD] Order #: [id number] FUTURE Prescriptions as of 04/22/2021 Sig: (more content not included)... Normal [facility] Ferritinon 04-22-2021 Ferritin [Mass/Vol] 44.4 ng/mL Normal 14.7-205.1 [facility] Comment on above: Performed By: #### F ERR, ZINC, IRON, VITD ####[address] [phone] Iron and TIBCon 04-22-2021 Iron [Mass/Vol] 79 ug/dL Normal 41-186 [facility] Comment on above: Performed By: #### F ERR, ZINC, IRON, VITD ####[address] [place], [place] [phone] TIBC 382 ug/dL Normal 232-386 [facility] Comment on above: Performed By: #### F ERR, ZINC, IRON, VITD ####[address] [place], [place] [phone] Transferrin Saturatn 21 % Normal 15-57 [facility] Comment on above: Performed By: #### F ERR, ZINC, IRON, VITD ####[address] [place], [place] [phone] Vitamin D 25 Hydroxyon 04-22 Vitamin D 25 Hydroxy 32.7 ng/mL Normal 31.0-80.0 [facility] Comment on above: Result Comment: Clas sification of 25 [place] Vitamin D status: Insufficiency/Moderate Deficiency: < or = 30 ng/mL Sufficiency/Optimal Levels: 31 to 80 ng/mL Toxicity: > 100 ng/mL Test performed by chemiluminescent immunoassay. Performed By: #### F ERR, ZINC, IRON, VITD ####[facility] [place], [place] [phone] Zincon 04-22-2021 Zinc 79 ug/dL Normal 55-150 [facility] Comment on above: Result Comment: This test was developed and its performance characteristics determined by [facility]'s [facility] ( [facility]). It has not been cleared or approved by the FDA. [facility] is regulated under CLIA as qualified to perform high complexity testing. This test is used for clinical purposes. It should not be regarded as investigational or for research. Performed By: #### F ERR, ZINC, IRON, VITD ####[facility] [id number] [place], [place] [phone] Vital Signs Date Time Vital Sign Value Performing Clinician Faci litleonela 03-31-2023 10:35-0400 Body height 160.02 cm MD Eugenio Obrien Work Phone: [facility] 03-31-2023 10:35-0400 Body temperature 98 [degF] MD Eugenio Obrien Work Phone: [facility] 03-31-2023 10:35-0400 Body weight 77.7 kg MD Eugenio Obrien Work Phone: [facility] 03-31-2023 10:35-0400 Diastolic blood pressure 91 mm[Hg] MD Eugenio Obrien Work Phone: [facility] 03-31-2023 10:35-0400 Heart rate 73 /min MD Eugenio Obrien Work Phone: [facility] 03-31-2023 10:35-0400 Respiratory rate 16 /min MD Eugenio Obrien Work Phone: [facility] 03-31-2023 10:35-0400 SaO2% (BldA) [Mass fraction] 98 % MD Eugenio Obrien Work Phone: [facility] 03-31-2023 10:35-0400 Systolic blood pressure 151 mm[Hg] MD Eugenio Obrien Work Phone: [facility] 09-05-2022 18:50-0400 Diastolic blood pressure 88 mm[Hg] MD Eugenio Obrien Work Phone: [facility] 09-05-2022 18:50-0400 Heart rate 86 /min MD Eugenio Obrien Work Phone: [facility] 09-05-2022 18:50-0400 Respiratory rate 18 /min MD Eugenio Obrien Work Phone: [facility] 09-05-2022 18:50-0400 SaO2% (BldA) [Mass fraction] 99 % MD Eugenio Obrien Work Phone: [facility] 09-05-2022 18:50-0400 Systolic blood pressure 142 mm[Hg] MD Eugenio Obrien Work Phone: [facility] 09-05-2022 17:05-0400 Body height 166.37 cm MD Eugenio Obrien Work Phone: [facility] 09-05-2022 17:05-0400 Body temperature 98.1 [degF] MD Eugenio Obrien Work Phone: [facility] 09-05-2022 17:05-0400 Body weight 76 kg MD Eugenio Orbien Work Phone: [facility] Encounters Encounter Date Encounter Type Care Provider Facility Start: 12-27-2023 End: 12-28-2023 ambulatory Ramon Rivas MD Facility: [facility] Start: 11-01-2023 End: 11-02-2023 ambulatory Ramon Rivas MD Facility:[facility] Start: 10-04-2023 End: 10-05-2023 ambulatory Ramon Rivas MD Facility:[facility] Start: 07-21-2023 End: 07-21-2023 ambulatory Eugenio Obrien Facility:[facility] Start: 07-21-2023 End: 07-21-2023 ambulatory MD Eugenio Obrien Work Phone: [facility] Work Phone: Start: 07-21-2023 End: 07-21-2023 Patient encounter procedure MD Eugenio Obrien Work Phone: [facility] [place] Work Phone: Start: 06-02-2023 End: 06-02-2023 ambulatory [facility] Start: 04-30-2023 ambulatory ANDRIUS GIEDRAITIS Faci lity:[facility] Start: 04-30-2023 End: 05-01-2023 ambulatory Ramon Rivas MD Facility:[facility] Start: 03-31-2023 End: 03-31-2023 Emergency department patient visit Eugenio Obrien Facility:[facility] Start: 03-31-2023 End: 03-31-2023 Emergency department patient visit MD Eugenio Obrien Work Phone: [facility] Work Phone: Start: 03-25-2023 End: 03-25-2023 ambulatory MARYBEL SWANSON . Facility:[facility] Start: 12-18-2022 Telephone encounter Lake Dailey DO Work Phone: Ophthalmology Comment on above: Orders Start: 12-07-2022 End: 12-08-[address] EUGENIO OBRIEN . Facility:[facility] Start: 11-09-2022 Refill Fatoumata Wild MD Work Phone: Gynecology Comment on above: Refill Request Start: 11-06-2022 End: 11-06-2022 ambulatory Eugenio Obrien Facility:[facility] Start: 10-27-2022 End: 10-28-[address] EUGENIO OBRIEN . Facility:[facility] Start: 09-22-2022 End: 09-22-2022 ambulatory АЛЕКСАНДР GÓMEZ Facility:[facility] Start: 09-09-2022 End: 09-10-[address] EUGENIO OBRIEN . Facility:[facility] Start: 09-05-2022 End: 09-05-2022 Emergency department patient visit Eugenio Obrien Facility:[facility] Start: 09-05-2022 End: 09-05-2022 Emergency department patient visit MD Eugenio Obrien Work Phone: [facility] Start: 09-02-2022 End: 09-03-[address] [...] 07-10-2025 LIPID SCREEN LIPID SCREEN [facility] Start: 07-21-2023 Dehydroepiandrosterone sulfate level [facility] Start: 07-21-2023 [facility] Start: 07-10-2023 DIABETES SCREEN DIABETES SCREEN [facility] Start: 11-29-2022 DEPRESSION ASSESSMENT DEPRESSION ASSESSMENT [facility] Start: 07-30-2022 Influenza vaccination INFLUENZA (#1) [facility] Start: 11-29-2021 DEPRESSION ASSESSMENT DEPRESSION ASSESSMENT [facility] Start: 08-07-2021 COVID-19 VACCINE (3 - Booster for Moderna series) COVID-19 VACCINE (3 - Booster for Moderna series) [facility] Start: 2018 COLOGUARD (FIT-DNA) COLOGUARD (FIT-DNA) [facility] Start: 2018 Colonoscopy COLONOSCOPY [facility] Start: 2018 COLORECTAL CANCER SCREENING COLORECTAL CANCER SCREENING [facility] Start: [address] COLONOGRAPHY [facility] Start: 2018 FECAL OCCULT BLOOD FECAL OCCULT BLOOD [facility] Start: 2018 SIGMOIDOSCOPY SIGMOIDOSCOPY [facility] Start: 2013 Mammography MAMMOGRAM [facility] Start: 1992 Urine microalbumin profile DTAP,TDAP,TD (1 - Tdap) [facility] Start: 1991 HEPATITIS C SCREENING HEPATITIS C SCREENING [facility] Start: 1991 HIV SCREENING HIV SCREENING [facility] Start: 1973 HEPATITIS B (1 of 3 - 3-dose series) HEPATITIS B (1 of 3 - 3-dose series) [facility] Patient Education [facility] Work Phone: Patient referral [facility] Work Phone: Testosterone Free [M ass/volume] in Serum or Plasma [facility] Payers Date Payer Category Payer Unknown 2022 Self-pay [id number] 2019 Medicaid [employer] [place] [id number] 2019-Present [phone] [address] [address] [place] [address] Medicaid [id number] 1973 Unknown [id number] 1973 Unknown [id number] 2.840.1.635863.3.579.2.593 1973 Unknown [id number] 2.840.1.090460.3.579.2.593 1973 Unknown [id number] [id number] 1973 Unknown [id number] 2.16.840.1.889913.3.579.2.593 1973 Unknown [id number] 2.16.840.1.917026.3.579.2.593 1973 Unknown [id number] 2.16.840.1.754562.3.579.2.593 1973 Unknown [id number] 2.16.840.1.725392.3.579.2.593 1973 Unknown [id number] 2.16.840.1.983669.3.579.2.593 1973 Unknown [id number] 2.16.840.1.285304.3.579.2.593 1973 Unknown [id number] 2.16.840.1.872166.3.579.2.593 1973 Unknown [id number] 2.16.840.1.219549.3.579.2.196 1973 Unknown [id number] 2.16.840.1.608409.3.579.2.196 1973 Unknown [id number] 2.16.840.1.360541.3.579.2.196 1973 Unknown [id number] 2.16.840.1.029720.3.579.2.196 1959 Medicaid [id number] Self-pay [id number] Unknown [place] BC/BS [id number] Unknown [id number] [id number]1 Unknown [id number] 2.16.840.1.407536.3.579.2.531 Unknown [id number] 2.16.840.1.037297.3.579.2.531 Unknown [id number] [id number]1 Social History Date Type Detail Facility Start: 09-05-2022 End: 03-31-2023 Tobacco smoking status NHIS Never smoked tobacco (finding) [facility] Start: 1975 Sex Assigned At Female F [facility] Start: 06-10-2015 Tobacco use and exposure Smokeless tobacco non-user [facility] Start: 01-08-2022 Alcohol intake Current drinke r of alcohol (finding) [facility] Start: 10-25-2015 Alcohol Comment social [facility] Start: 1975 Sex Assigned At Not on file C [facility] Medical Equipment Procedure Code Equipment Code Equipment Origin al Text Equipment Identifier Dates ing [facility] [id number] Start: 07-01-2015 Clinical Notes 04-22-2021 to 06-02-2023 Telephone Encounter - Casie Trejo - 12/24/2022 10:47 AM ESTTelephone Encounter - [...] in a finger splint and referred to [facility] Ortho for further evaluation and treatment. [...] Past Medical History: Diagnosis Date Diabetes mellitus ([facility]) Objective General: Body mass index is 28.52 kg/m???. There were no vitals filed for this visit. No acute distress, comfortable Respiratory: Unlabored breathing with normal rate, no cough Cardiovascular: Warm well perfused extremities Psych: Appropriate mood behavior Left Hand: Inspection- no ecchymosis, no edema, no effusion Tender to palpation over dorsal aspect left index finger DIP joint Strength: clinical quality manager deferred 2/2 pain, thumb 5/5, interossei [...] Patel MD Orthopedic Surgery Resident Physician Pager: [phone] 06/02/23 11:35 AM By using the attestations [...] be an additional personal documentation from me. [facility] 12-24-2022 Miscellaneous Notes Images from the original note were not included. Contacted the patient and left a message the prescription has been updated. Also faxed the prescription to [facility] as requested. Lake Ro, OD You 18 hours ago (4:03 PM) The patient's glasses prescription has been finalized and should be available on My Chart. You Lake Ro, BILLY 3 days ago CLAIRE Mckenna, is there any way you can release the manifest for the patient for their appointment with you 10/2021? Lake Dailey, DO Mckenzie Robles [facility] 4 days ago The patient was not refracted by us because she already has an pulp drier firer (Dr Lake Ro) who takes care of her glasses. She should contact his office. [facility] calling for pts glasses prescription. Please fax to [phone]. Thank you! Electronically signed by Mckenzie Robles [facility] at 12/18/2022 3:40 PM EST documented in this encounter [facility] 11-11-2022 Miscellaneous Notes Noted, thanks Phoned pt, verified name/ Advised pt she is very overdue for f/u appt with Dr. Wild 08/14/21, was to f/u in 3-4 mos [...] RN documented in this encounter [facility] 01-08-2022 Note HNO ID: [id number] Author: Lake Dailey DO Service: ? Author [...] Dailey DO January 08, 2022 9:22 AM [facility] 12-09-2021 Note HNO ID: [id number] Author: RT Kim(R) Service: Radiology Author Type: [...] PERIPHERAL IV DATA: Not applicable SIGNED BY: Sonja Kurtz, RT(R) December 09, 2021 3:17 PM [facility] 12-09-2021 Note HNO ID: [id number] Author: Neeta Amador MD Service: ? Author [...] (human papilloma virus) infection - Hyperlipidemia 09/2015 [id number] - Migraine - Neuropathy Diagnosis made by [...] Lysis of adhesions.Monarc transobturator midurethral sling, ref [id number], lot [id number]. 4. Posterior repair. - REMOVAL ADENOIDS,PRIMARY,<12 Y/O [...] 500 mg t (more content not included)... [facility] 10-30-2021 Note HNO ID: [id number] Author: Lake Ro OD Service: ? Author Type: CARD FEEDER Type: Progress Notes Filed: 10/30/2021 9:59 AM [...] onset of nystagmus Both eyes Lake Ro, BILLY I have confirmed and edited as necessary [...] Ro, BILLY October 30, 2021 9:56 AM [facility] 10-20-2021 Note HNO ID: [id number] Author: Lake Ro OD Service: ? Author Type: CARD FEEDER Type: Progress Notes Filed: 10/20/2021 9:06 AM [...] Ro, OD October 20, 2021 9:04 AM [facility] 08-15-2021 Note HNO ID: [id number] Author: Fatoumata Wild MD Service: ? Author Type: Physician Type: Progress Notes Filed: 08/14/2021 10:37 PM Note Text: I spent a total of 40+ minutes on the date of the service which included preparing to see the patient, [id number] patient care, completing clinical documentation, obtaining and/or reviewing separately obtained history, performing a medically appropriate examination, counseling and educating the patient/family/caregiver, ordering medications, tests, or procedures and independently interpreting results (not separately reported). [facility] 08-14-2021 Note HNO ID: [id number] Author: Fatoumata Wild MD Service: ? Author [...] (human papilloma virus) infection - Hyperlipidemia 09/2015 [id number] - Migraine - Neuropathy Diagnosis made by [...] Lysis of adhesions.Monarc transobturator midurethral sling, ref [id number], lot [id number]. 4. Posterior repair. 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 Visit office engineer present: Berna Sethi MA GEN: Pleasant, cooperative, NAD SKIN: Color, texture, turgor nl. Warm, dry. ENDO: No obvious hirsutism signs. EYES: Conjunctivae clear. No discoloration. NECK: No mass LUNGS: Breathing comfortably without distress, CTAB HEART: RRR, no r/g ABDOMEN: Soft. NTND. No masses. PELVIC: external genitalia normal, normal Bartholin's glands, urethra, Kemp's glands, no vulvar lesions, good vaginal support, [...] 4-8 o'clock-severe, a (more content not included)... [facility] 04-22-2021 Note HNO ID: [id number] Author: Franklin Prather MD Service: ? Author [...] for this note was completed by Bre Tyler RN and Kaylie Garvey RN acting as scribe for Tamela Vasquez MD. April 22, 2021 8:23 AM. I agree with the Chief Complaint, ROS, and Past Histories independently gathered by the clinical field support technician and the remaining scribed note accurately describes [...] infection last year hair Franklin Prather MD [facility] Evaluation note No assessment inform ation available [facility] Work Phone: Hospital Discharge instructions Additional Instructions Follow-up with your primary care doctor Return to ED if develop worsening symptoms or concerns [facility] Work Phone: Summary Purpose Family History No [...] section and content) DATE CREATED AUTHOR 01/16/2022 [facility] DATE CREATED AUTHOR AUTHOR'S ORGANIZ ATION [facility]2023 [facility] DATE CREATED AUTHOR AUTHOR'S ORGANIZ ATION 06/09/2023 [facility] DATE CREATED AUTHOR AUTHOR'S ORGANIZ ATION 07/30/2023 [facility] DATE CREATED AUTHOR AUTHOR'S ORGANIZ ATION 02/02/2024 [facility] Care Teams (unrecognized sec tion and content) Team Status: Active Member Role Status Dates Eugenio Obrien MD Primary Care Provider Active Team Status: Inactive Member Role Status Dates Eugenio Obrien MD Primary Care Provider Active Poli Vázquez APRN Emergency Provider Active Team Status: Inactive Member Role Status Dates Eugenio Obrien MD Primary Care Provider Active Brendan Mitchell DO Emergency Provider Active Hand Riveter Relationship Specialty Start Date End Date Eugenio Obrien MD [address] [place] [address] PCP - General Family Medicine 07/05/20 Team [...] any alcohol or drug abuse patient.[facility] the event this information is protected by the Federal Confidentiality of Alcohol and Drug Abuse Patient Records regulations: The Federal rules restrict any use of the information to criminally investigate or prosecute any alcohol or drug abuse patient.[facility] Reason for Visit (unrecogniz ed section and [...] BE BASED ON THE PRIMARY CLINICAL RECORDS. [facility] [employer] [facility]. provides no warranty or guarantee of the accuracy or completeness of information in this document.
[2024-02-07 09:31] VITALS: BP 140/89; PULSE 95; RESP 16; TEMP 36.2; O2SAT 98
--- NOTE | 2024-02-07 10:26 | W.PM.PROCNOT ---
Date of procedure: 02/07/24 Pre-op diagnosis: Sacroiliitis, right Post-op diagnosis: same as pre-op Procedure: Procedure: Right sacroiliac joint injection Medications: Bupivacaine 0.25% 3cc, kenalog 40mg After informed consent was obtained, the patient was brought to the medical procedure unit and placed in the prone position, when a timeout was completed verifying correct patient, procedure, site, positioning, implant, and/or special equipment.? The skin overlying the area was prepped and draped in standard sterile fashion using alcohol.? A 25-gauge needle was inserted towards the right sacroiliac joint under direct fluoroscopic imaging.? Needle tip was advanced until the joint was encountered.? We instilled a total of 3 mL of solution.? Postoperatively needles were removed.? The patient tolerated the procedure well without complication.? The patient reported reduction in pain symptoms postoperatively. Anesthesia: Local Surgeon: Ramon Rivas Pathology: none sent Condition: stable Disposition: no change
[2024-02-07 10:28] VITALS: BP 114/76; BP 119/70; PULSE 86; PULSE 88; RESP 18; O2SAT 96
[2024-02-07] MEDS: LIDOCAINE HCL 2% PF 100 MG/5 ML VIAL 1.5 ML INJ (10:31)
[2024-02-07] MEDS: IOHEXOL 240 MG/ML - 10 ML VIAL 12 MG INJ (10:31)
[2024-02-07] MEDS: BUPIVACAINE HCL 0.25% PF 25 MG/10 ML VIAL 2 ML INJ (10:31)
[2024-02-07] MEDS: TRIAMCINOLONE ACETONIDE 40 MG/ML VIAL INJ (10:32)
== END 2024-02-07 10:30 | disposition home or self-care (01) ==
PROVIDERS: PCP Family Medicine; Visit Provider Anesthesiology
DX: M46.1 Sacroiliitis, not elsewhere classified (principal)
CPT/HCPCS: 27096; 77002; Q9966

== ENCOUNTER 2024-02-17 14:00 | Outpatient (OUT) | payer OTHER, SELFPAY ==
--- NOTE | 2024-02-17 15:00 | P.CN_ITS ---
Consult Note: HPI Data of Consult Patient: known to practice within the last 3 years Requesting Physician: Bria Santamaria NP Primary Care Provider: Wan Obrien MD Consult Narrative Reason for consult: f/u Narrative: Zakiya Cuello a pleasant 47 year old female presents for evaluation and management of chronic back pain. Recently underwent Bilateral L3, 4, 5 (L4-5, L5-S1) medial branch thermal RFA >50% ongoing relief, most recently underwent right SIJ injection with 75% improvement in right SIJ pain. Patient continues to report moderate to severe pressure/pain in low back without radiculopathy, pt reports inability to walk distances due to increase in pain. Pt has failed to benefit from PT/HEP greater than 6 weeks. cc:: CC: Bria Santamaria NP Review of Systems ROS Status of ROS 10 or more systems reviewed and unremark able except as noted in history and below Musculoskeletal Reports: back pain and joint pain PFSH PFSH Medical History Acid reflux ?K21.9 - Gastro-esophageal reflux disease without esophagitis (ICD-10) Altered mental status ?R41.82 - Altered mental status, unspecified (ICD-10) Angina at rest ?I20.8 - Other forms of angina pectoris (ICD-10) Anxiety ?F41.9 - Anxiety disorder, unspecified (ICD-10) Aphasia ?R47.01 - Aphasia (ICD-10) Heartburn ?R12 - Heartburn (ICD-10) Hiatal hernia ?K44.9 - Diaphragmatic hernia without obstruction or gangrene (ICD-10) High cholesterol ?E78.00 - Pure hypercholesterolemia, unspecified (ICD-10) Loud snoring ?R06.83 - Snoring (ICD-10) Low back pain ?M54.50 - Low back pain, unspecified (ICD-10) Sinus tachycardia ?R00.0 - Tachycardia, unspecified (ICD-10) Sleep apnea ?G47.30 - Sleep apnea, unspecified (ICD-10) TMJ (temporomandibular joint syndrome) ?M26.609 - Unspecified temporomandibular joint disorder, unspecified side (ICD-10) Surgical History H/O: hysterectomy ?Z90.710 - Acquired absence of both cervix and uterus (ICD-10) S/P nasal surgery ?Z98.890 - Other specified postprocedural states (ICD-10) H/O tubal ligation ?Z98.51 - Tubal ligation status (ICD-10) H/O eye surgery ?Z98.890 - Other specified postprocedural states (ICD-10) History of tonsillectomy and adenoidectomy ?Z90.89 - Acquired absence of other organs (ICD-10) Social History Gender Identity: female Meds Home Medications and Allergies Home Medications ?Medication ?Instructions ?Recorded ?Confirmed ?Type clobetasol 0.05 % scalp solution 1 applic topical DAILY 04/30/23 02/07/24 History ferrous sulfate 143 mg (45 mg 143 mg PO DAILY 04/30/23 02/07/24 History iron) tablet,extended release (Slow Release Iron) gabapentin 600 mg tablet 600 mg PO BID 04/30/23 02/07/24 History liothyronine 5 mcg tablet 10 mcg PO DAILY 04/30/23 02/07/24 History metoprolol succinate 100 mg 150 mg PO DAILY 04/30/23 02/07/24 History tablet,extended release 24 hr pantoprazole 40 mg tablet,delayed 40 mg PO BID 04/30/23 02/07/24 History release prazosin 5 mg capsule 5 mg PO DAILY 04/30/23 02/07/24 History progesterone 100 mg PO .QD 04/30/23 02/07/24 History simvastatin 40 mg tablet 40 mg PO DAILY 04/30/23 02/07/24 History cholecalciferol (vitamin D3) 125 125 mcg PO DAILY 05/01/23 02/07/24 History mcg (5,000 unit) capsule ezetimibe 10 mg tablet 10 mg PO DAILY 05/01/23 02/07/24 History lurasidone 20 mg tablet (Latuda) 20 mg PO DAILY 05/01/23 02/07/24 History albuterol 90 mcg/actuation aerosol 90 mcg inhalation Q4H PRN 05/02/23 02/07/24 History inhaler shortness of breath budesonide-formoterol HFA 160 2 inh inhalation BID 05/02/23 02/07/24 History mcg-4.5 mcg/actuation aerosol inhaler ketoconazole 2 % shampoo 1 applic topical DAILY 05/02/23 02/07/24 History sucralfate 1 gram tablet 1 g PO Q6H 05/02/23 02/07/24 History tiotropium bromide 1.25 2 inh inhalation DAILY 05/02/23 02/07/24 History mcg/actuation mist for inhalation (Spiriva Respimat) aspirin 325 mg tablet 81 mg (0.2492 x 325 mg) PO QD@0900 05/03/23 02/07/24 Rx #30 tabs levothyroxine 50 mcg tablet mcg 11/01/23 History Allergies Allergy/AdvReac Type Severity Reaction Status Date / Time Sulfa (Sulfonamide Allergy Severe Anaphylaxis Verified 02/07/24 09:34 Antibiotics) clarithromycin [From Biaxin] AdvReac Severe Verified 02/07/24 09:34 lamotrigine [From Lamictal] AdvReac Severe Verified 02/07/24 09:34 Penicillins AdvReac Severe Verified 02/07/24 09:34 Exam Constitutional Documenting provider has reviewed patient's vital signs: yes Common normals: no apparent distress, oriented x3, healthy appearing, alert and well nourished General appearance: cooperative HENMT Common normals: normocephalic, hearing grossly normal bilaterally and moist oral mucous membranes Head and scalp: normocephalic Eye Common normals: PERRL Pupil: PERRL Neck & C-Spine Common normals: full ROM General: normal visual inspection Chest Common normals: inspection of chest normal Respiratory Common normals: normal respiratory effort, no retractions and no use of accessory muscles Effort & inspection: able to speak in complete sentences Back & Pelvis Lumbar spine/lower back: normal to inspection, pain with ROM, lumbar spinal tenderness and straight leg raise negative bilaterally Other: mild pain with facet loading negative radiculopathy mildly positive right PSIS, gaenslens, thigh thrust, fabers, fadirs Extremity Common normals: normal to inspection and full ROM Neuro Common normals: oriented x3, CN's II-XII intact bilaterally, moves all extremities, no focal motor deficits, no sensory deficits noted and deep tendon reflexes 2+ bilaterally Sensorium/orientation: alert Gait (neuro): normal gait Motor exam: strength 5/5 throughout and no movement abnormalities noted Psych Common normals: mental status grossly normal, thought process normal, cooperative, affect normal, speech normal and activity/motor behavior normal Speech: normal speech Thought process: normal thought process Assessment and Plan Assessment and Plan (1) Lumbar spondylosis: (2) Sacroiliitis: (3) Low back pain: Plan moderate ongoing improvement from right SIJ injection, 75% improvement ongoing. Patient continues to have moderate to severe low back pain and pressure post lumbar RFAs, has failed medication management, failed PT and HEP greater than [address] without contrast to evaluate additional components of lumbar pain in consideration of surgical intervention/additional injections and procedures continue current medications tolerating well without side effects
== END 2024-02-17 14:01 | disposition home or self-care (01) ==
LOC: PM 14:00
PROVIDERS: PCP Family Medicine; Visit Provider Nurse Practitioner
DX: M47.816 Spondylosis without myelopathy or radiculopathy, lumbar region (principal); M46.1 Sacroiliitis, not elsewhere classified; M54.50 Low back pain, unspecified
CPT/HCPCS: G0463

== ENCOUNTER 2024-02-24 09:09 | Outpatient (OUT) | payer OTHER, SELFPAY ==
[2024-02-24 09:31] LABS: Basophils Absolute Auto 0.1 10^3/uL (0.0-0.1); Basophils Percent Auto 0.9 % (0.2-2.0); Eosinophils Absolute Auto 0.1 10^3/uL (0.0-0.7); Eosinophils Percent Auto 0.7 % (0.9-7.0); Hemoglobin 13.2 g/dL (12.0-16.0); Immature Granulocytes Abs Auto 0.02 10^3/uL (0.00-0.03); Immature Granulocytes Pct Auto 0.3 % (0.0-0.5); Lymphocytes Absolute Auto 1.8 10^3/uL (1.2-3.8); Lymphocytes Percent Auto 25.7 % (20.5-60.0); Mean Corpuscular Hemoglobin 29.5 pg (26.7-34.0); Mean Corpuscular Volume 89.3 fL (81.0-99.0); Mean Platelet Volume 8.9 fL (9.5-13.5); Monocytes Absolute Auto 0.5 10^3/uL (0.3-0.8); Monocytes Percent Auto 7.4 % (1.7-12.0); Neutrophils Absolute Auto 4.6 10^3/uL (1.4-6.5); Platelet Count 326 10^3/uL (150-450); Red Blood Count 4.48 10^6/uL (4.20-5.40); Red Cell Distribution Width 12.8 % (11.0-15.0)
[2024-02-24 11:26] LABS: Estimated Average Glucose 117 mg/dL; Glycohemoglobin A1C 5.7 % (4.5-6.2)
[2024-02-24 11:48] LABS: Alanine Aminotransferase 34 U/L (14-59); Albumin Globulin Ratio 0.9; Albumin Level 3.5 g/dL (3.4-5.0); Alkaline Phosphatase 70 U/L (46-116); Anion Gap 14.9; Aspartate Amino Transferase 16 U/L (15-37); BUN Creatinine Ratio 18.7; Bilirubin Total 0.5 mg/dL (0.2-1.0); Calcium 9.1 mg/dL (8.5-10.1); Chloride 105 mmol/L (98-107); Chol HDL Ratio 3.9; Cholesterol 241 mg/dL (<=200); Estimated GFR (African America >60 (>=60); Estimated GFR (Non-African Ame >60 (>=60); Free T3 2.72 pg/mL (2.18-3.98); Globulin 3.7 g/dL; Glucose 85 mg/dL (74-106); HDL Cholesterol 62 mg/dL (40-60); Potassium 3.9 mmol/L (3.5-5.1); Sodium 142 mmol/L (136-145); Thyroid Stimulating Hormone 0.052 uIU/mL (0.358-3.740); Total Protein 7.2 g/dL (6.4-8.2); Triglycerides 63 mg/dL (<=150); VLDL CHOLESTEROL 12.6 mg/dL
[2024-02-25 11:10] LABS: Insulin 22.7 uIU/mL (2.6-24.9)
== END 2024-02-24 09:10 | disposition home or self-care (01) ==
LOC: LAB 09:10
PROVIDERS: PCP Family Medicine; Visit Provider Family Medicine
DX: J01.90 Acute sinusitis, unspecified (principal); R55 Syncope and collapse; I10 Essential (primary) hypertension; R73.09 Other abnormal glucose; Z12.12 Encounter for screening for malignant neoplasm of rectum; D64.9 Anemia, unspecified; E55.9 Vitamin D deficiency, unspecified
CPT/HCPCS: 36415; 80053; 80061; 82306; 83036; 83525; 83540; 84436; 84443; 84481; 85025

== ENCOUNTER 2024-02-26 08:25 | Outpatient (OUT) | payer OTHER, SELFPAY ==
--- NOTE | 2024-02-26 | CT_ITS ---
The [address] [address] Patient Name: LARRY TAM MRN: [id number] date: 1975 Sex: F Assigned Patient Location: CT Current Patient Location: Accession/Order Number: [id number] Exam Date: 02/26/2024 08:40 Report Date: 02/28/2024 07:39 At the request of: ZOYA SAN Procedure: CT lumbar spine wo con EXAMINATION: CT lumbar spine wo con HISTORY: M47.816 M47.50 Low back pain, Lumbar spondylosis COMPARISON: XR lumbar spine 06/07/2023 TECHNIQUE: Axial, Coronal, and Sagittal images were created without IV contrast. Dose reduction techniques were achieved by using automated exposure control and/or adjustment of mA and/or kV according to patient size and/or use of iterative reconstruction technique. FINDINGS: VERTEBRAL BODIES: No fracture, pars defect, or osseous lesion. FACET JOINTS: No disruption or abnormal widening. DISCS: L4-5 moderate diffuse disc bulging without disc height reduction resulting in mild-moderate foramen narrowing bilaterally. CENTRAL CANAL: No spinal stenosis or evidence of hemorrhage. PARASPINAL AREA: No visible mass. CT/CT lumbar spine wo con IMPRESSION: 1. No appreciable acute abnormality. 2. L4-5 moderate foramen narrowing bilaterally secondary to degenerative disc disease. Electronically authenticated by: MAX RAUSCH Date: 02/28/2024 07:39
--- OUTSIDE RECORDS SUMMARY | 2024-02-26 08:28 | XMS_ITS | CCD ---
Author Organization [facility] Care Team Providers Care Special Order Jeweler Name Role Phone MD Eugenio Obrien Primary Care Provider [phone] DO Brendan Mitchell Emergency Provider [phone] Eugenio Obrien MD Primary Care Provider [phone] MD Eugenio Obrien Primary Care Provider [phone] RAMAN Vázquez Emergency Provider SKY ., MARYBEL Attending Unavailable SKY ., MARYBEL Admitting Unavailable SKY .MARYBEL Consulting Unavailable LACYY ., DR BECKER Primary Care Unavailable MARIEL MITCHELL Consulting Unavailab ADEN Jaimes Consulting Unavailable GIEDRAITIS, ANDRIUS Admitting Unavailable GIEDRAITIS, ANDRIUS Attending Unavailable LACYY ., DR BECKER Primary Care Unavailable HOY [...] GÓMEZ Attending Unavailable АЛЕКСАНДР GÓMEZ Admitting Unavailable HOArpita ., DR BECKER Primary Care Unavailable АЛЕКСАНДР GÓMEZ Consulting Unavailable SWETA GAMEZ Attending Unavailable MD Eugenio Obrien Primary Care Provider [phone] MD Shayy Lozada Attending Provider [phone] Eugenio Obrien Primary Care Unavailable KathieMatti byersothy Admitting Unavailable Matti Vázquezothy Attending Unavailable Eugenio Obrien Primary Care Unavailable Shayy Lozada Admitting Unavailable Shayy Lozada Attending Unavailable Eugenio Obrien Primary Care Unavailable [place] Admitting Unavailable [place] Attending Unavailable Eugenio Obrien Primary Care Unavailable Brendan Mitchell M Admitting Unavailable Baltazar Mitchelled M Attending Unavailable Gikaileeitis , Andrius Violetautgabby Attending Unavailable Gikaileeitis , Andrius Vytautgabby Attending Unavailable Gikaileeitis , Andrius Vytautas Attending Unavailable Gikaileeitis , Andrius Vytautgabby Attending Unavailable Giedraitis , Andrius Vytautgabby Attending Unavailable Allergies Allergy Classification Reported Allergen(s) Allergy Type Date of Onset Reaction(s) Facility (7 sources) Clarithromycin; Translations: [CLARITHROMYCIN] Drug Allergy 4 [facility] (7 sources) lamoTRIgine; Translations: [LAMOTRIGINE] Drug Allergy 4 Rash [facility] (7 sources) Sulfonamides (Antibiotic); Translations: [SULFA (SULFONAMIDE ANTIBIOTICS)] Allergy to substance 4 [facility] (3 sources) Penicillins; Translations: [PENICILLINS] Propensity to adverse reactions to drug 4 Unknown [facility] (1 source) Clarithromycin Drug Allergy 3 [facility] (2 sources) diphenhydrAMINE Drug Allergy 5 [facility] (1 source) lamoTRIgine Drug Allergy 4 [facility] (2 sources) Penicillins Drug allergy (disorder) 3 [facility] (2 sources) Sulfonamides (Antibiotic) Drug allergy (disorder) 3 [facility] (1 source) Bee pollen; Translations: [BEE POLLEN] Propensity to adverse reactions to drug (disorder) 3 [facility] Repository (1 source) diphenhydrAMINE; Translations: [DIPHENHYDRAMINE HCL] Drug Allergy 3 [facility] Repository Medications Current Medications Medication Drug [...] Comment on above: INHALE 2 PUFFS BY [facility] TWICE DAILY *RINSE AFTER USE* cloNIDine hydrochloride [...] 06-02-2023 Episodic Other aftercare (1 source) Other senior living (current) drug therapy; Translations: [OTH LONGTERM CURRENT DRUG THERAPY] Onset: 03-29-2023 Episodic Other [...] Antinuclear Abs, IFA Positive Critically abnormal . [facility] Comment on above: Result Comment: Nega tive <1:80 Borderline 1:80 Positive >1:80 Performed By: #### L IPASE, CBC, CMP #### [facility] [address] Homogeneous Pattern 1:80 Normal . [facility] Comment on above: Result Comment: ICAP nomenclature: [id number] Performed By: #### L IPASE, CBC, CMP #### [facility] [address] Note 1 Normal . [facility] Comment on above: Result Comment: For more [...] titers Nucleosomes, Histones Drug-induced SLE Speckled Sm, DIGITAL PHOTOGRAPHER, SCL-70, SLE,MCTD,PSS (diffuse form), SS-A/SS-B Sjogrens Nucleolar SCL-70, PM-1/SCL High titers Scleroderma, PM/DM Centromere Centromere PSS (limited form) w/Crest syndrome variable Nuclear Dot [id number] Primary Biliary Cirrhosis Nuclear GP210, Primary Biliary Cirrhosis Membrane joleen A,B,C Performed at: - [facility] [id number] Organic Chemist: Eric Vasquez PhD, Phone: [phone] PERFORMED BY: [place] [address] PATHOLOGIST ORGANIZATIONAL RESEARCH CONSULTANT HELENA BEVERLY M.D. Performed By: #### L IPASE, CBC, CMP #### [address] Alanine aminotransferase [En zymatic activity/volume] in Serum or PlasmaOrdered By: Shayy Lozada on 08-23-2023 ALT [Catalytic activity/Vol] 23 U/L 7-52 [facility] Albumin [Mass/volume] in Ser um or Plasma by Bromocresol green (BCG) dye binding methoOrdered By: Shayy Lozada on 07-21-2023 Albumin BCG dye [Mass/Vol] 4.3 g/dL 3.5-5.7 [facility] Alkaline phosphatase [Enzyma tic activity/volume] in Serum or PlasmaOrdered By: Shayy Lozada on 07-21-2023 ALP [Catalytic activity/Vol] 57 U/L 34-104 [facility] Aspartate aminotransferase [ Enzymatic activity/volume] in Serum or PlasmaOrdered By: Shayy Lozada on 07-21-2023 AST [Catalytic activity/Vol] 17 U/L 13-39 [facility] Basophils Auto (Bld) [#/Vol] Ordered By: Shayy Lozada on 07-21-2023 Basophils (Bld) [#/Vol] 0.1 10*3/uL 0.0-0.2 [facility] Basophils/100 WBC Auto (Bld) Ordered By: Shayy Lozada on 07-21-2023 Basophils/100 WBC (Bld) 1.2 % . [facility] Bilirubin.total [Mass/volume ] in Serum or PlasmaOrdered By: Shayy Lozada on 07-21-2023 Bilirubin [Mass/Vol] 0.5 mg/dL 0.3-1.0 [facility] Calcium [Mass/volume] in Ser um or PlasmaOrdered By: Shayy Lozada on 07-21-2023 Calcium [Mass/Vol] 9.4 mg/dL 8.6-10.3 [facility] Carbon dioxide, total [Moles /volume] in Serum or PlasmaOrdered By: Shayy Lozada on 07-21-2023 CO2 [Moles/Vol] 29.8 mmol/L 21.0-31.0 [facility] Chloride [Moles/volume] in S [place] or PlasmaOrdered By: Shayy Lozada on 07-21-2023 Chloride [Moles/Vol] 108 mmol/L 98-107 [facility] Complete Blood Count Auto Di ffon 07-21-2023 Basophils (Bld) [#/Vol] 0.1 10*3/uL Normal 0.0-0.2 [facility] Comment on above: Performed By: #### L IPASE, CBC, CMP #### [address] Basophils/100 WBC (Bld) 1.2 % Normal . [facility] Comment on above: Performed By: #### L IPASE, CBC, CMP #### [address] Eosinophils (Bld) [#/Vol] 0.0 10*3/uL Normal 0.0-0.45 [facility] Comment on above: Performed By: #### L IPASE, CBC, CMP #### [address] Eosinophils/100 WBC (Bld) 0.1 % Normal . [facility] Comment on above: Performed By: #### L IPASE, CBC, CMP #### [address] Erythrocyte distribution width (RBC) [Ratio] 13.2 % Normal 11.9-15.3 [facility] Comment on above: Performed By: #### L IPASE, CBC, CMP #### [address] Hematocrit (Bld) [Volume fraction] 36.6 % Normal 34.0-46.4 [facility] Comment on above: Performed By: #### L IPASE, CBC, CMP #### [address] Hemoglobin (Bld) [Mass/Vol] 12.5 g/dL Normal 11.8-15.4 [facility] Comment on above: Performed By: #### L IPASE, CBC, CMP #### [address] Lymphocytes (Bld) [#/Vol] 1.8 10*3/uL Normal 1.00-4.8 [facility] Comment on above: Performed By: #### L IPASE, CBC, CMP #### [address] [place] [address] [place] Lymphocytes/100 WBC (Bld) 37.2 % Normal . [facility] Comment on above: Performed By: #### L IPASE, CBC, CMP #### [facility] [address] MCH (RBC) [Entitic mass] 29.7 pg Normal 24.7-34.3 [facility] Comment on above: Performed By: #### L IPASE, CBC, CMP #### [address] MCV (RBC) [Entitic vol] 86.7 fL Normal 80-100 [facility] Comment on above: Performed By: #### L IPASE, CBC, CMP #### [address] Mean Corpuscular HGB Conc 34.2 g/dL Normal 32.0-35.0 [facility] Comment on above: Performed By: #### L IPASE, CBC, CMP #### [place] [address] [place] Monocytes (Bld) [#/Vol] 0.4 10*3/uL Normal 0.0-0.8 [facility] Comment on above: Performed By: #### L IPASE, CBC, CMP #### [place] [address] [place] Monocytes/100 WBC (Bld) 8.9 % Normal . [facility] Comment on above: Performed By: #### L IPASE, CBC, CMP #### [place] [address] [place] Neutrophils (Bld) [#/Vol] 2.5 10*3/uL Normal 1.8-7.7 [facility] Comment on above: Performed By: #### L IPASE, CBC, CMP #### [place] [address] [place] Neutrophils/100 WBC (Bld) 52.6 % Normal . [facility] Comment on above: Performed By: #### L IPASE, CBC, CMP #### [address] NRBC% 0.0 /100{WBC} Normal 0-0.5 [facility] Comment on above: Performed By: #### L IPASE, CBC, CMP #### [address] Platelet mean volume (Bld) [Entitic vol] 7.5 fL Normal 6.3-10.7 [facility] Comment on above: Performed By: #### L IPASE, CBC, CMP #### [address] Platelets (Bld) [#/Vol] 259 10*3/uL Normal 150-450 [facility] Comment on above: Performed By: #### L IPASE, CBC, CMP #### [address] RBC (Bld) [#/Vol] 4.22 10*6/uL Normal 3.60-5.00 [facility] Comment on above: Performed By: #### L IPASE, CBC, CMP #### [address] WBC (Bld) [#/Vol] 4.8 10*3/uL Normal 3.8-11.6 [facility] Comment on above: Performed By: #### L IPASE, CBC, CMP #### [address] Comprehensive Metabolic Pane sonny 07-21-2023 Albumin [Mass/Vol] 4.3 g/dL Normal 3.5-5.7 [facility] Comment on above: Performed By: #### C MP, CBC, T4F, ESR, TSH3 #### [address] #### TESTF, DHEAS, ZAID #### [facility] , Albumin/Globulin [Mass ratio] 1.9 {ratio} Normal [facility] Comment on above: Performed By: #### C MP, CBC, T4F, ESR, TSH3 #### [facility] [address] [place] [address] #### TESTF, DHEAS, ZAID #### [facility] , ALP [Catalytic activity/Vol] 57 U/L Normal 34-104 [facility] Comment on above: Performed By: #### C MP, CBC, T4F, ESR, TSH3 #### [facility] [address] [place] [address] [place] #### TESTF, DHEAS, ZAID #### [facility] , ALT [Catalytic activity/Vol] 23 U/L Normal 7-52 [facility] Comment on above: Performed By: #### C MP, CBC, T4F, ESR, TSH3 #### [address] #### TESTF, DHEAS, ZAID #### [facility] , Anion gap [Moles/Vol] 9.6 mmol/L Normal 6.0-15.0 [facility] Comment on above: Performed By: #### C MP, CBC, T4F, ESR, TSH3 #### [facility] [address] [place] [address] [place] #### TESTF, DHEAS, ZAID #### [facility] , AST [Catalytic activity/Vol] 17 U/L Normal 13-39 [facility] Comment on above: Performed By: #### C MP, CBC, T4F, ESR, TSH3 #### [place] [address] [place] #### TESTF, DHEAS, ZAID #### [facility] , Bilirubin [Mass/Vol] 0.5 mg/dL Normal 0.3-1.0 [facility] Comment on above: Performed By: #### C MP, CBC, T4F, ESR, TSH3 #### [place] [address] [place] #### TESTF, DHEAS, ZAID #### [facility] , Calcium [Mass/Vol] 9.4 mg/dL Normal 8.6-10.3 [facility] Comment on above: Performed By: #### C MP, CBC, T4F, ESR, TSH3 #### [address] #### TESTF, DHEAS, ZAID #### [facility] , Chloride [Moles/Vol] 108 mmol/L High 98-107 [facility] Comment on above: Performed By: #### C MP, CBC, T4F, ESR, TSH3 #### [address] #### TESTF, DHEAS, ZAID #### [facility] , CO2 [Moles/Vol] 29.8 mmol/L Normal 21.0-31.0 [facility] Comment on above: Performed By: #### C MP, CBC, T4F, ESR, TSH3 #### [place] [address] [place] #### TESTF, DHEAS, ZAID #### [facility] , Creatinine [Mass/Vol] 0.76 mg/dL Normal 0.60-1.20 [facility] Comment on above: Performed By: #### C MP, CBC, T4F, ESR, TSH3 #### [facility] [address] [place] [address] [place] #### TESTF, DHEAS, ZAID #### [facility] , GFR/1.73 sq M.predicted MDRD (S/P/Bld) [Vol rate/Area] mL/min/{1.73_m2} Normal [facility] Comment on above: Performed By: #### C MP, CBC, T4F, ESR, TSH3 #### [place] [address] [place] #### TESTF, DHEAS, ZAID #### [facility] , Globulin (S) [Mass/Vol] 2.3 g/dL Normal [facility] Comment on above: Performed By: #### C MP, CBC, T4F, ESR, TSH3 #### [place] [address] [place] #### TESTF, DHEAS, ZAID #### [facility] , Glucose [Mass/Vol] 101 mg/dL High 70-100 [facility] Comment on above: Result Comment: [facility] Glucose Reference Range is dependent on time and content of last meal. Glucose of more than 200 mg/dL in a nonstressed, ambulatory subject supports the diagnosis of Diabetes Mellitus. ADA recommended reference range Performed By: #### C MP, CBC, T4F, ESR, TSH3 #### [address] #### TESTF, DHEAS, ZAID #### [facility] , Potassium [Moles/Vol] 4.4 mmol/L Normal 3.5-5.1 [facility] Comment on above: Performed By: #### C MP, CBC, T4F, ESR, TSH3 #### [place] [address] [place] #### TESTF, DHEAS, ZAID #### [facility] , Protein [Mass/Vol] 6.6 g/dL Normal 6.4-8.9 [facility] Comment on above: Performed By: #### C MP, CBC, T4F, ESR, TSH3 #### [place] [address] [place] #### TESTF, DHEAS, ZAID #### [facility] , Sodium [Moles/Vol] 143 mmol/L Normal 136-145 [facility] Comment on above: Performed By: #### C MP, CBC, T4F, ESR, TSH3 #### [place] [address] [place] #### TESTF, DHEAS, ZAID #### [facility] , Urea nitrogen [Mass/Vol] 12 mg/dL Normal 7-25 [facility] Comment on above: Performed By: #### C MP, CBC, T4F, ESR, TSH3 #### [facility] [address] [place] [address] #### TESTF, DHEAS, ZAID #### [facility] , Creatinine [Mass/volume] in Serum or PlasmaOrdered By: Shayy Lozada on 07-21-2023 Creatinine [Mass/Vol] 0.76 mg/dL 0.60-1.20 [facility] Dehydroepiandrosterone Sulfa meeta 07-21-2023 Dehydroepiandrosterone Sulfate 135.0 ug/dL Normal 41.2-243.7 [facility] Comment on above: Result Comment: Perf ormed at: - [facility] [address] [id number] Organic Chemist: Eric Vasquez PhD, Phone: [phone] Performed By: #### L IPASE, CBC, CMP #### [address] Eosinophils Auto (Bld) [#/Vo l]Ordered By: Shayy Lozada on 07-21-2023 Eosinophils (Bld) [#/Vol] 0.0 10*3/uL 0.0-0.45 [facility] Eosinophils/100 WBC Auto (Bl d)Ordered By: Shayy Lozada on 07-21-2023 Eosinophils/100 WBC (Bld) 0.1 % . [facility] Erythrocyte Sedimentation Ra meeta 07-21-2023 ESR (Bld) [Velocity] 13 mm/h Normal 0-19 [facility] Comment on above: Result Comment: PERF ORMED BY: [place] [address] PATHOLOGIST ORGANIZATIONAL RESEARCH CONSULTANT HELENA BEVERLY M.D. Performed By: #### L IPASE, CBC, CMP #### [address] Erythrocyte distribution wid th Auto (RBC) [Ratio]Ordered By: Shayy Lozada on 07-21-2023 Erythrocyte distribution width (RBC) [Ratio] 13.2 % 11.9-15.3 [facility] Erythrocyte sedimentation ra te by Photometric methodOrdered By: Shayy Lozada on 07-21-2023 ESR Photometric method (Bld) [Velocity] 13 mm/hr 0-19 [facility] Free T4 (Free Thyroxine)on 0 07-21-2023 Free T4 [Mass/Vol] 0.81 ng/dL Normal 0.61-1.12 [facility] Comment on above: Performed By: #### C MP, CBC, T4F, ESR, TSH3 #### [facility] [address] [place] [address] #### TESTF, DHEAS, ZAID #### [facility] , Globulin Calc (S) [Mass/Vol] Ordered By: Shayy Lozada on 07-21-2023 Globulin (S) [Mass/Vol] 2.3 g/dL [facility] Glucose [Mass/volume] in Ser um or PlasmaOrdered By: Shayy Lozada on 07-21-2023 Glucose [Mass/Vol] 101 mg/dL 70-100 [facility] Comment on above: ADA recommended refe rence rangeRandom Glucose Reference Range is dependent on time and content of last meal. Glucose of more than 200 mg/dL in a nonstressed, ambulatory subject supports the diagnosis of Diabetes Mellitus. Hematocrit Auto (Bld) [Volum e fraction]Ordered By: Shayy Lozada on 07-21-2023 Hematocrit (Bld) [Volume fraction] 36.6 % 34.0-46.4 [facility] Hemoglobin [Mass/volume] in BloodOrdered By: Shayy Lozada on 07-21-2023 Hemoglobin (Bld) [Mass/Vol] 12.5 g/dL 11.8-15.4 [facility] Leukocytes [#/volume] correc ji for nucleated erythrocytes in Blood by Automated counOrdered By: Shayy Lozada on 07-21-2023 WBC corrected for nucl RBC Auto (Bld) [#/Vol] 4.8 10*3/uL 3.8-11.6 [facility] Lymphocytes Auto (Bld) [#/Vo l]Ordered By: Shayy Lozada on 07-21-2023 Lymphocytes (Bld) [#/Vol] 1.8 10*3/uL 1.00-4.8 [facility] Lymphocytes/100 WBC Auto (Bl d)Ordered By: Shayy Lozada on 07-21-2023 Lymphocytes/100 WBC (Bld) 37.2 % . [facility] MCH Auto (RBC) [Entitic mass ]Ordered By: Shayy Lozada on 07-21-2023 MCH (RBC) [Entitic mass] 29.7 pg 24.7-34.3 [facility] MCHC Auto (RBC) [Mass/Vol]Or dered By: Shayy Lozada on 07-21-2023 MCHC (RBC) [Mass/Vol] 34.2 g/dL 32.0-35.0 [facility] MCV Auto (RBC) [Entitic vol] Ordered By: Shayy Lozada on 07-21-2023 MCV (RBC) [Entitic vol] 86.7 fL 80-100 [facility] Monocytes Auto (Bld) [#/Vol] Ordered By: Shayy Lozada on 07-21-2023 Monocytes (Bld) [#/Vol] 0.4 10*3/uL 0.0-0.8 [facility] Monocytes/100 WBC Auto (Bld) Ordered By: Shayy Lozada on 07-21-2023 Monocytes/100 WBC (Bld) 8.9 % . [facility] Neutrophils Auto (Bld) [#/Vo l]Ordered By: Shayy Lozada on 07-21-2023 Neutrophils (Bld) [#/Vol] 2.5 10*3/uL 1.8-7.7 [facility] Neutrophils/100 WBC Auto (Bl d)Ordered By: Shayy Lozada on 07-21-2023 Neutrophils/100 WBC (Bld) 52.6 % . [facility] No Panel InformationOrdered By: Shayy Lozada on 07-21-2023 Estimated GFR (CKD-EPI) > 60.0 mL/Min [facility]acy Creatinine Clearance (Chem N/A [facility] Nucleated erythrocytes [Pres ence] in Blood by Automated countOrdered By: Shayy Lozada on 07-21-2023 Nucleated RBC Auto Ql (Bld) 0.0 /100{WBC} 0-0.5 [facility] Platelet mean volume Auto (B ld) [Entitic vol]Ordered By: Shayy Lozada on 07-21-2023 Platelet mean volume (Bld) [Entitic vol] 7.5 fL 6.3-10.7 [facility] Platelets Auto (Bld) [#/Vol] Ordered By: Shayy Lozada on 07-21-2023 Platelets (Bld) [#/Vol] 259 10*3/uL 150-450 [facility] Potassium [Moles/volume] in Serum or PlasmaOrdered By: Shayy Lozada on 07-21-2023 Potassium [Moles/Vol] 4.4 mmol/L 3.5-5.1 [facility] Protein [Mass/volume] in Ser um or PlasmaOrdered By: Shayy Lozada on 07-21-2023 Protein [Mass/Vol] 6.6 g/dL 6.4-8.9 [facility] RBC Auto (Bld) [#/Vol]Ordere d By: Shayy Lozada on 07-21-2023 RBC (Bld) [#/Vol] 4.22 10*6/uL 3.60-5.00 [facility] Serum or plasma albumin/glob ulin mass ratioOrdered By: Shayy Lozada on 07-21-2023 Albumin/Globulin [Mass ratio] 1.9 {ratio} [facility] Serum or plasma anion gap de terminationOrdered By: Shayy Lozada on 07-21-2023 Anion gap [Moles/Vol] 9.6 mmol/L 6.0-15.0 [facility] Sodium [Moles/volume] in Ser um or PlasmaOrdered By: Shayy Lozada on 07-21-2023 Sodium [Moles/Vol] 143 mmol/L 136-145 [facility] Testosterone,Freeon 07-21-20 Testosterone,Free 1.0 pg/mL Normal 0.0-4.2 [facility] Comment on above: Result Comment: Perf ormed at: BN - [facility] [address] [id number] Organic Chemist: Elizabeth Quezada MD, Phone: [phone] Performed By: #### L IPASE, CBC, CMP #### [facility] [address] Thyroid Stimulating Hormoneo n 07-21-2023 TSH Qn 0.39 m[IU]/L Low 0.45-5.33 [facility] Comment on above: Result Comment: PERF ORMED BY: [place] [address] PATHOLOGIST ORGANIZATIONAL RESEARCH CONSULTANT HELENA BEVERLY M.D. Performed By: #### C MP, CBC, T4F, ESR, TSH3 #### [address] #### TESTF, DHEAS, ZAID #### [facility] , Thyrotropin [Units/volume] i n Serum or PlasmaOrdered By: Shayy Lozada on 07-21-2023 TSH Qn 0.39 m[IU]/L 0.45-5.33 [facility] Thyroxine (T4) free [Mass/vo lume] in Serum or PlasmaOrdered By: Shayy Lozada on 07-21-2023 Free T4 [Mass/Vol] 0.81 ng/dL 0.61-1.12 [facility] Urea nitrogen [Mass/volume] in Serum or PlasmaOrdered By: Shayy Lozada on 07-21-2023 Urea nitrogen [Mass/Vol] 12 mg/dL 06-22 [facility] WBC Auto (Bld) [#/Vol]Ordere d By: Shayy Lozada on 07-21-2023 WBC (Bld) [#/Vol] 4.8 10*3/uL 3.8-11.6 [facility] Office Visiton 06-02-2023 Follow-up visit [id number] Zakiya Cuello 1975 F Date Provider Department Center 06/02/2023 VICKY JIMÉNEZ ORTHO MPORTHO Family History Problem Relation Age of Onset Diabetes Mother Diabetes Father Family Status - Relation Status Age at Mother Alive Father Alive Level of Service:02930 [place] OFFICE/OUTPATIENT NEW LOW MDM 30-44 MINUTES Reason for Visit and Comments: Pain [136] Normal [facility] Bilirubin Test strip Ql (U)O rdered By: Poli Vázquez on 03-31-2023 Bilirubin Ql (U) Negative Negative [facility] Color Auto (U)Ordered By: Frederick Vázquez on 03-31-2023 Color (U) Yellow Yellow [facility] Ketones Auto test strip (U) [Mass/Vol]Ordered By: Poli Vázquez on 03-31-2023 Ketones (U) [Mass/Vol] Negative Negative Fi [facility] Nitrite Test strip Ql (U)Ord ered By: Poli Vázquez on 03-31-2023 Nitrite Ql (U) Negative Negative [facility] Protein Auto test strip (U) [Mass/Vol]Ordered By: Poli Vázquez on 03-31-2023 Protein (U) [Mass/Vol] Negative Negative [facility] Specific gravity Auto test s trip (U) [Rel density]Ordered By: Poli Vázquez on 03-31-2023 Specific gravity (U) [Rel density] 1.004 1.001-1.030 [facility] Urinalysison 03-31-2023 Appearance (U) Clear Normal Clear [facility] Comment on above: Order Comment: Name Collection Type:: Clean-Voided Midstream Performed By: #### L IPASE, CBC, CMP #### [facility] [address] [place] [id number] [place] Bilirubin,Urine Negative Normal Negative [facility] Comment on above: Order Comment: Name Collection Type:: Clean-Voided Midstream Performed By: #### L IPASE, CBC, CMP #### [facility] [address] [place] [id number] [place] Color (U) Yellow Normal Yellow [facility] Comment on above: Order Comment: Name Collection Type:: Clean-Voided Midstream Performed By: #### L IPASE, CBC, CMP #### [facility] [address] [place] [id number] [place] Glucose Ql (U) Normal Normal Normal [facility] Comment on above: Order Comment: Name Collection Type:: Clean-Voided Midstream Performed By: #### L IPASE, CBC, CMP #### [address] Ketones Ql (U) Negative Normal Negative [facility] Comment on above: Order Comment: Name Collection Type:: Clean-Voided Midstream Performed By: #### L IPASE, CBC, CMP #### [address] Leukocyte esterase Test strip Ql (U) Negative Normal Negative [facility] Comment on above: Order Comment: Name Collection Type:: Clean-Voided Midstream Performed By: #### L IPASE, CBC, CMP #### [address] Nitrite,Urine Negative Normal Negative [facility] Comment on above: Order Comment: Name Collection Type:: Clean-Voided Midstream Performed By: #### L IPASE, CBC, CMP #### [address] Occult Blood,Urine Negative Normal Negative [facility] Comment on above: Order Comment: Name Collection Type:: Clean-Voided Midstream Result Comment: PERF ORMED BY: [place] [address] PATHOLOGIST ORGANIZATIONAL RESEARCH CONSULTANT HELENA BEVERLY M.D. Performed By: #### L IPASE, CBC, CMP #### [place] [address] [place] pH (U) 6.5 [pH] Normal 5.0-9.0 [facility] Comment on above: Order Comment: Name Collection Type:: Clean-Voided Midstream Performed By: #### L IPASE, CBC, CMP #### [place] [address] [place] Protein,Urine Negative Normal Negative [facility] Comment on above: Order Comment: Name Collection Type:: Clean-Voided Midstream Performed By: #### L IPASE, CBC, CMP #### [address] [place] [address] [place] Specificy [place],Urine 1.004 Normal 1.001-1.030 [facility] Comment on above: Order Comment: Name Collection Type:: Clean-Voided Midstream Performed By: #### L IPASE, CBC, CMP #### [facility] [address] Urobilinogen,Urine Normal Normal Normal [facility] Comment on above: Order Comment: Name Collection Type:: Clean-Voided Midstream Performed By: #### L IPASE, CBC, CMP #### [facility] [address] Urine clarity by refractomet ry automatedOrdered By: Poli Vázquez on 03-31-2023 Clarity Refractometry automated (U) Clear Clear [facility] Urine glucose measurement by automated test strip (mass/volume)Ordered By: Poli Vázquez on 03-31-2023 Glucose Auto test strip (U) [Mass/Vol] Normal mg/dL Normal [facility] Urine hemoglobin detection b y automated test stripOrdered By: Poli Vázquez on 03-31-2023 Hemoglobin Auto test strip Ql (U) Negative Negative [facility] Urine leukocyte esterase det ection by automated test stripOrdered By: Poli Vázquez on 03-31-2023 Leukocyte esterase Auto test strip Ql (U) Negative Negative [facility] Urobilinogen Auto test strip (U) [Mass/Vol]Ordered By: Poli Vázquez on 03-31-2023 Urobilinogen (U) [Mass/Vol] Normal mg/dL Normal [facility] pH Auto test strip (U)Ordere d By: Poli Vázquez on 03-31-2023 pH (U) 6.5 [pH] 5.0-9.0 [facility] CT ABD/PELVIS WO CONon 03-25 CT ABD/PELVIS [...] ADEN MASTERSON Date: 2023-03-25 14:39 Normal [facility] ER URINE PROFILEon 3 Bilirubin Ql (U) Negative Normal NEGATIVE [facility] Comment on above: Performed By: #### E BVPROF #### [facility] [address] [place] [address] Dr. Nahomi Arana Clarity (U) CLEAR Normal CLEAR [facility] Comment on above: Performed By: #### E BVPROF #### [facility] [address] [place] [address] Dr. Nahomi Arana Color (U) LT. YELLOW Normal YELLOW [facility] Comment on above: Performed By: #### E BVPROF #### [facility] [address] [place] [address] Dr. Nahomi Arana ERUAHD A micrscopic examination will be performed if indicated. Normal [facility] Comment on above: Performed By: #### E BVPROF #### [facility] [address] [place] [address] Dr. Nahoim Arana Glucose Ql (U) Negative Normal NEGATIVE [facility] Comment on above: Performed By: #### E BVPROF #### [facility] [address] [place] [address] Dr. Nahomi Arana Hemoglobin Ql (U) TRACE-INTACT Abnormal NEGATIVE [facility] Comment on above: Performed By: #### E BVPROF #### [facility] [address] [place] [address] Dr. Nahomi Arana Ketones Ql (U) Negative Normal NEGATIVE [facility] Comment on above: Performed By: #### E BVPROF #### [facility] [address] [place] [address] Dr. Nahomi Arana LEUKOCYTES Negative Normal NEGATIVE [facility] Comment on above: Performed By: #### E BVPROF #### [facility] [address] [place] [address] Dr. Nahomi Arana Nitrite Ql (U) Negative Normal NEGATIVE [facility] Comment on above: Performed By: #### E BVPROF #### [facility] [address] [place] [address] Dr. Nahomi Arana pH (U) 5.0 [pH] Normal 5-9 [facility] Comment on above: Performed By: #### E BVPROF #### [facility] [address] [place] [address] Dr. Nahomi Arana SPEC GRAVITY 1.030 Abnormal 1.005-<=1.02 5 [facility] Comment on above: Performed By: #### E BVPROF #### [facility] [address] [place] [address] Dr. Nahomi Arana UA PROTEIN Negative Normal NEGATIVE/ TRACE [facility] Comment on above: Performed By: #### E BVPROF #### [facility] [address] [place] [address] Dr. Nahomi Arana UR MICRO IND INDICATED Normal [facility] Comment on above: Performed By: #### E BVPROF #### [facility] [address] [place] [address] Dr. Nahomi Arana Urobilinogen Qn (U) 0.2 {Jesus'U}/dL Normal 0.2 - 1. 0 [facility] Comment on above: Performed By: #### E BVPROF #### [facility] [address] [place] [address] Dr. Nahomi Arana URINE MICROSCOPIC ONLYon BACTERIA NONE SEEN Normal NONE SEEN [facility] Comment on above: Performed By: #### E BVPROF #### [facility] [address] [place] [address] Dr. Nahomi Arana Bacteria identified Cx Nom (U) NOT INDICATED Normal [facility] Comment on above: Performed By: #### E BVPROF #### [facility] [address] [place] [address] Dr. Nahomi Arana CAST NONE SEEN Normal NONE SEEN [facility] Comment on above: Performed By: #### E BVPROF #### [facility] [address] [place] [address] Dr. Nahomi Arana Crystals LM Nom (Urine sed) NONE SEEN Normal NONE SEEN [facility] Comment on above: Performed By: #### E BVPROF #### [facility] [address] [place] [address] Dr. Nahomi Arana Epithelial cells LM Ql (Urine sed) FEW Abnormal NONE SEEN /RARE [facility] Comment on above: Performed By: #### E BVPROF #### [facility] [address] [place] [address] Dr. Nahomi Arana MUCOUS NONE SEEN Normal NONE SEEN [facility] Comment on above: Performed By: #### E BVPROF #### [facility] [address] [place] [address] Dr. Nahomi Arana RBC 0-2 Normal 0-2 [facility] Comment on above: Performed By: #### E BVPROF #### [facility] [address] [place] [address] Dr. Nahomi Arana WBC NONE SEEN Normal NONE SEEN [facility] Comment on above: Performed By: #### E BVPROF #### [facility] [address] [place] [address] [address] Nahomi Arana MM screening mammo BI w/CADo n 11-13-2022 MM screening mammo BI w/CAD [facility] [place] [address] [place], [place] [id number] Mammography Report Signed Patient: Zakiya Cuello MR#: [id number] : 1975 Acct:[id number] Age/Sex: 46 / F ADM Date: 11/06/22 Loc: [place] Room: Type: [facility] Attending Dr: Lake Jensen MD Copies [...] Licha Do M.D.11/13/2022 8:29 AM Dictation Location: [facility] Transcribed By: [facility] 11/13/22828 Dictated By: Licha Do MD 11/13/22825 Signed By: 11/13/22828 [facility] CORTISOLon 09-11-2022 Cortisol 3.7 ug/dL Normal [facility] Comment on above: Result Comment: Sonido isol AM 6.2 - 19.4 Cortisol PM 2.3 - 11.9 Performed By: #### E BVPROF #### [facility] [address] [address] [address] Nahomi Arana BARRY-ZHANG VIRUS (EBV) AB PROFILEon 09-11-2022 EBV Ab VCA, IgG 129.0 U/mL Critically high 0.0-17.9 [facility] Comment on above: Result Comment: Nega tive <18.0 Equivocal 18.0 - 21.9 Positive >21.9 Performed By: #### E BVPROF #### [facility] [address] [place] [address] [address] Nahomi Arana EBV Ab VCA, IgM <36.0 Normal 0.0-35.9 [facility] Comment on above: Result Comment: Nega tive <36.0 Equivocal 36.0 - 43.9 Positive >43.9 Performed By: #### E BVPROF #### [facility] [address] [place] [address] [address] Nahomi Arana EBV Nuclear Antigen Ab, IgG 228.0 U/mL Critically high 0.0-17.9 [facility] Comment on above: Result Comment: Nega tive <18.0 Equivocal 18.0 - 21.9 Positive >21.9 Performed By: #### E BVPROF #### [facility] [address] [place] [address] [address] Nahomi Arana Interpretation: Comment Normal [facility] Comment on above: Result Comment: EBV Interpretation [...] EBNA. Performed By: #### E BVPROF #### [facility] [address] [place], [place] [address] Dr. Nahomi Arana FERRITINon 09-09-2022 Ferritin [Mass/Vol] 79.0 ng/mL Normal 6.2-137.0 [facility] Comment on above: Performed By: #### E BVPROF #### [facility] [address] [place], [place] [address] Dr. Nahomi Arana VITAMIN B12on 09-09-2022 Cobalamin (Vitamin B12) [Mass/Vol] 612.0 pg/mL Normal 193.0-986.0 [facility] Comment on above: Performed By: #### E BVPROF #### [facility] [address] [address] [address] Nahomi Arana Albumin [Mass/volume] in Ser um or PlasmaOrdered By: Brendan Mitchell on 09-05-2022 Albumin [Mass/Vol] 3.5 g/dL 3.2-5.5 [facility] Basophils Auto (Bld) [#/Vol] Ordered By: Brendan Mitchell on 09-05-2022 Basophils (Bld) [#/Vol] 0.1 10*3/uL 0.0-0.2 [facility] Basophils/100 WBC Auto (Bld) Ordered By: Brendan Mitchell on 09-05-2022 Basophils/100 WBC (Bld) 1.0 % . F [facility] Bilirubin Test strip Ql (U)O rdered By: Brendan Mitchell on 09-05-2022 Bilirubin Ql (U) Negative Negative [facility] Blood hemoglobin measurement (mass/volume)Ordered By: Brendan Mitchell on 09-05-2022 Hemoglobin (Bld) [Mass/Vol] 12.2 g/dL 11.8-15.4 [facility] Blood leukocytes automated c ount (number/volume)Ordered By: Brendan Mitchell on 09-05-2022 WBC (Bld) [#/Vol] 8.1 10*3/uL 4.5-11.[address] [facility] [address] abdomen pelvis w conon CT abdomen pelvis w [facility] [place] [address] [place] [address] CT Scan Report Signed Patient: Zakiya Cuello MR#: [id number] : 1975 Acct:[id number] Age/Sex: 46 / F ADM Date: 09/05/22 Loc: ER Room: Type: [facility] ER Attending Dr: Copies to: Brendan [...] Garrison Gill M.D.09/05/2022 7:03 PM Dictation Location: [place] [address] Transcribed By: [facility] 09/05/221902 Dictated By: Garrison Gill DO 09/05/221900 Signed By: 09/05/221902 Normal [facility] Color Auto (U)Ordered By: Fish Mitchell on 09-05-2022 Color (U) Dark yellow Yellow [facility] Complete Blood Count Auto Di ffon 09-05-2022 Basophils (Bld) [#/Vol] 0.1 10*3/uL Normal 0.0-0.2 [facility] Comment on above: Result Comment: PERF ORMED BY: [place] [address] PATHOLOGIST ORGANIZATIONAL RESEARCH CONSULTANT HELENA BEVERLY M.D. Performed By: #### L IPASE, CBC, CMP #### [address] Basophils/100 WBC (Bld) 1.0 % Normal . [facility] Comment on above: Performed By: #### L IPASE, CBC, CMP #### [place] [address] [place] Eosinophils (Bld) [#/Vol] 0.2 10*3/uL Normal 0.0-0.45 [facility] Comment on above: Performed By: #### L IPASE, CBC, CMP #### [address] Eosinophils/100 WBC (Bld) 2.9 % Normal . [facility] Comment on above: Performed By: #### L IPASE, CBC, CMP #### [address] Erythrocyte distribution width (RBC) [Ratio] 13.7 % Normal 11.9-15.3 [facility] Comment on above: Performed By: #### L IPASE, CBC, CMP #### [address] Hematocrit (Bld) [Volume fraction] 36.0 % Normal 34.0-46.4 [facility] Comment on above: Performed By: #### L IPASE, CBC, CMP #### [address] Hemoglobin (Bld) [Mass/Vol] 12.2 g/dL Normal 11.8-15.4 [facility] Comment on above: Performed By: #### L IPASE, CBC, CMP #### [facility] [address] [place] [address] [place] Lymphocytes (Bld) [#/Vol] 2.6 10*3/uL Normal 1.00-4.8 [facility] Comment on above: Performed By: #### L IPASE, CBC, CMP #### [address] Lymphocytes/100 WBC (Bld) 32.4 % Normal . [facility] Comment on above: Performed By: #### L IPASE, CBC, CMP #### [address] MCH (RBC) [Entitic mass] 29.9 pg Normal 24.7-34.3 [facility] Comment on above: Performed By: #### L IPASE, CBC, CMP #### [address] MCV (RBC) [Entitic vol] 88.6 fL Normal 80-100 F [facility] Comment on above: Performed By: #### L IPASE, CBC, CMP #### [address] Mean Corpuscular HGB Conc 33.8 g/dL Normal 32.0-35.0 [facility] Comment on above: Performed By: #### L IPASE, CBC, CMP #### [address] Monocytes (Bld) [#/Vol] 0.6 10*3/uL Normal 0.0-0.8 [facility] Comment on above: Performed By: #### L IPASE, CBC, CMP #### [place] [address] [place] Monocytes/100 WBC (Bld) 7.6 % Normal . [facility] Comment on above: Performed By: #### L IPASE, CBC, CMP #### [address] Neutrophils (Bld) [#/Vol] 4.5 10*3/uL Normal 1.8-7.7 [facility] Comment on above: Performed By: #### L IPASE, CBC, CMP #### [place] [id number] [place] Neutrophils/100 WBC (Bld) 56.1 % Normal . [facility] Comment on above: Performed By: #### L IPASE, CBC, CMP #### [address] Nucleated RBC/100 WBC (Bld) [Ratio] 0.0 % Normal 0-0.5 [facility] Comment on above: Performed By: #### L IPASE, CBC, CMP #### [address] Platelet mean volume (Bld) [Entitic vol] 7.4 fL Normal 6.3-10.7 [facility] Comment on above: Performed By: #### L IPASE, CBC, CMP #### [address] Platelets (Bld) [#/Vol] 319 10*3/uL Normal 150-450 [facility] Comment on above: Performed By: #### L IPASE, CBC, CMP #### [address] RBC (Bld) [#/Vol] 4.07 10*6/uL Normal 3.60-5.00 [facility] Comment on above: Performed By: #### L IPASE, CBC, CMP #### [address] WBC (Bld) [#/Vol] 8.1 10*3/uL Normal 4.5-11.0 [facility] Comment on above: Performed By: #### L IPASE, CBC, CMP #### [address] Comprehensive Metabolic Pane sonny 09-05-2022 Albumin [Mass/Vol] 3.5 g/dL Normal 3.2-5.5 [facility] Comment on above: Performed By: #### L IPASE, CBC, CMP #### [address] Albumin/Globulin [Mass ratio] 1.3 {ratio} Normal [facility] Comment on above: Performed By: #### L IPASE, CBC, CMP #### [facility] [address] ALP [Catalytic activity/Vol] 46 U/L Normal 32-92 [facility] Comment on above: Performed By: #### L IPASE, CBC, CMP #### [facility] [address] [place] [id number] [place] ALT [Catalytic activity/Vol] 22 U/L Normal 10-60 [facility] Comment on above: Performed By: #### L IPASE, CBC, CMP #### [facility] [address] Anion gap [Moles/Vol] 12.9 mmol/L Normal 6.0-15.0 [facility] Comment on above: Performed By: #### L IPASE, CBC, CMP #### [facility] [address] AST [Catalytic activity/Vol] 20 U/L Normal 10-42 [facility] Comment on above: Performed By: #### L IPASE, CBC, CMP #### [facility] [address] Bilirubin [Mass/Vol] 0.3 mg/dL Normal 0.3-1.2 [facility] Comment on above: Performed By: #### L IPASE, CBC, CMP #### [facility] [address] [place] [address] [place] Calcium [Mass/Vol] 9.6 mg/dL Normal 8.2-10.2 [facility] Comment on above: Performed By: #### L IPASE, CBC, CMP #### [facility] [address] [place] [id number] [place] Chloride [Moles/Vol] 102 mmol/L Normal 95-114 [facility] Comment on above: Performed By: #### L IPASE, CBC, CMP #### [facility] [address] [place] [id number] [place] CO2 [Moles/Vol] 27.7 mmol/L Normal 22.0-30.0 [facility] Comment on above: Performed By: #### L IPASE, CBC, CMP #### [facility] [address] Creatinine [Mass/Vol] 0.73 mg/dL Normal 0.44-1.03 [facility] Comment on above: Performed By: #### L IPASE, CBC, CMP #### [facility] [address] Creatinine Clr Calc Pharmacy 96.11 [facility] Comment on above: Performed By: #### L IPASE, CBC, CMP #### [facility] [address] Estimated GFR ( [place] > 60 [facility] Comment on above: Result Comment: GFR estimated reference range: According to KDOQI guidelines, <60 ml/min/1.73m2 is sufficient to diagnose a patient with chronic kidney disease. Performed By: #### L IPASE, CBC, CMP #### [facility] [address] Estimated GFR (Non- Am > 60 [facility] Comment on above: Performed By: #### L IPASE, CBC, CMP #### [address] Globulin (S) [Mass/Vol] 2.7 g/dL Normal [facility] Comment on above: Performed By: #### L IPASE, CBC, CMP #### [address] Glucose [Mass/Vol] 115 mg/dL High 70-100 [facility] Comment on above: Result Comment: [place] om Glucose Reference Range is dependent on time and content of last meal. Glucose of more than 200 mg/dL in a nonstressed, ambulatory subject supports the diagnosis of Diabetes Mellitus. ADA recommended reference range Performed By: #### L IPASE, CBC, CMP #### [address] Potassium [Moles/Vol] 3.6 mmol/L Normal 3.5-5.1 [facility] Comment on above: Performed By: #### L IPASE, CBC, CMP #### [facility] [address] [place] [id number] [place] Protein [Mass/Vol] 6.2 g/dL Normal 6.1-7.9 [facility] Comment on above: Performed By: #### L IPASE, CBC, CMP #### [facility] [address] [place] [id number] [place] Sodium [Moles/Vol] 139 mmol/L Normal 136-146 [facility] Comment on above: Performed By: #### L IPASE, CBC, CMP #### [facility] [address] [place] [address] [place] Urea nitrogen [Mass/Vol] 12 mg/dL Normal 9-23 [facility] Comment on above: Performed By: #### L IPASE, CBC, CMP #### [facility] [address] [place] [address] [place] Creatinine and Glomerular fi ltration rate.predicted panel (S/P/Bld)Ordered By: Brendan Mitchell on 09-05-2022 Creatinine [Mass/Vol] 0.73 mg/dL 0.44-1.03 [facility] ECG 12 lead ECGon 09-05-2022 ECG 12 lead ECG [facility] [place] [address] [place] [address] Electrocardiograph Report Signed Patient: Zakiya Cuello MR#: [id number] : 1975 Acct:[id number] Age/Sex: 46 / F ADM Date: 09/05/22 Loc: ER Room: Type: [facility] ER Attending Dr: Ordering Provider: [...] was found Confirmed by Brendan Mitchell DO ([id number]) on 09/05/2022 8:06:15 PM Referred By: Electronically Signed By:Brendan Mitchell DO Transcribed By: MUS Signed By Brendan Mitchell DO 2 2005 Normal [facility] Eosinophils Auto (Bld) [#/Vo l]Ordered By: Brendan Mitchell on 09-05-2022 Eosinophils (Bld) [#/Vol] 0.2 10*3/uL 0.0-0.45 [facility] Eosinophils/100 WBC Auto (Bl d)Ordered By: Brendan Mitchell on 09-05-2022 Eosinophils/100 WBC (Bld) 2.9 % . [facility] Erythrocyte distribution wid th Auto (RBC) [Ratio]Ordered By: Brendan Mitchell on 09-05-2022 Erythrocyte distribution width (RBC) [Ratio] 13.7 % 11.9-15.3 [facility] Estimated glomerular filtrat ion rate (GFR) non- AmericanOrdered By: Brendan Mitchell on 09-05-2022 GFR/1.73 sq M.predicted among non-blacks MDRD (S/P/Bld) [Vol rate/Area] > 60 mL/Min [facility] Globulin Calc (S) [Mass/Vol] Ordered By: Brendan Mitchell on 09-05-2022 Globulin (S) [Mass/Vol] 2.7 g/dL [facility] Hematocrit Auto (Bld) [Volum e fraction]Ordered By: Brendan Mitchell on 09-05-2022 Hematocrit (Bld) [Volume fraction] 36.0 % 34.0-46.4 [facility] Ketones Auto test strip (U) [Mass/Vol]Ordered By: Brendan Mitchell on 09-05-2022 Ketones (U) [Mass/Vol] Negative Negative Fi [facility] Laboratory - Chemistry and C hemistry - challengeOrdered By: Brendan Mitchell on 09-05-2022 Lipase [Catalytic activity/Vol] 38.0 U/L 22-51 [facility] Laboratory - Hematology and Cell countsOrdered By: Brendan Mitchell on 10-08-2022 Nucleated RBC/100 WBC (Bld) [Ratio] 0.0 % 0-0.5 [facility] Lipaseon 09-05-2022 Lipase [Catalytic activity/Vol] 38.0 U/L Normal 22-51 [facility] Comment on above: Result Comment: PERF ORMED BY: [facility] [address] [place] [address] PATHOLOGIST ORGANIZATIONAL RESEARCH CONSULTANT HELENA BEVERLY M.D. Performed By: #### L IPASE, CBC, CMP #### [facility] [address] Lymphocytes Auto (Bld) [#/Vo l]Ordered By: Brendan Mitchell on 09-05-2022 Lymphocytes (Bld) [#/Vol] 2.6 10*3/uL 1.00-4.8 [facility] Lymphocytes/100 WBC Auto (Bl d)Ordered By: Brendan Mitchell on 09-05-2022 Lymphocytes/100 WBC (Bld) 32.4 % . [facility] MCH Auto (RBC) [Entitic mass ]Ordered By: Brendan Mitchell on 09-05-2022 MCH (RBC) [Entitic mass] 29.9 pg 24.7-34.3 [facility] MCHC Auto (RBC) [Mass/Vol]Or dered By: Brendan Mitchell on 09-05-2022 MCHC (RBC) [Mass/Vol] 33.8 g/dL 32.0-35.0 [facility] MCV Auto (RBC) [Entitic vol] Ordered By: Brendan Mitchell on 09-05-2022 MCV (RBC) [Entitic vol] 88.6 fL 80-100 F [facility] Monocytes Auto (Bld) [#/Vol] Ordered By: Brendan Mitchell on 09-05-2022 Monocytes (Bld) [#/Vol] 0.6 10*3/uL 0.0-0.8 [facility] Monocytes/100 WBC Auto (Bld) Ordered By: Brendan Mitchell on 09-05-2022 Monocytes/100 WBC (Bld) 7.6 % . F [facility] Neutrophils Auto (Bld) [#/Vo l]Ordered By: Brendan Mitchell on 09-05-2022 Neutrophils (Bld) [#/Vol] 4.5 10*3/uL 1.8-7.7 [facility] Neutrophils/100 WBC Auto (Bl d)Ordered By: Brendan Mitchell on 09-05-2022 Neutrophils/100 WBC (Bld) 56.1 % . [facility] Nitrite Test strip Ql (U)Ord ered By: Brendan Mitchell on 09-05-2022 Nitrite Ql (U) Negative Negative [facility] No Panel InformationOrdered By: Brendan Mitchell on 09-05-2022 Estimated GFR () > 60 mL/Min [facility] Comment on above: GFR estimated refere nce range: According to KDOQI guidelines, <60 ml/min/1.73m2 is sufficient to diagnose a patient with chronic kidney disease. Pharmacy Creatinine Clearance (Chem 96.11 [facility] Platelet mean volume Auto (B ld) [Entitic vol]Ordered By: Brendan Mitchell on 09-05-2022 Platelet mean volume (Bld) [Entitic vol] 7.4 fL 6.3-10.7 [facility] Platelets Auto (Bld) [#/Vol] Ordered By: Brendan Mitchell on 09-05-2022 Platelets (Bld) [#/Vol] 319 10*3/uL 150-450 [facility] Protein Auto test strip (U) [Mass/Vol]Ordered By: Brendan Mitchell on 09-05-2022 Protein (U) [Mass/Vol] Negative Negative [facility] Protein [Mass/volume] in Ser um or PlasmaOrdered By: Brendan Mitchell on 09-05-2022 Protein [Mass/Vol] 6.2 g/dL 6.1-7.9 [facility] RBC Auto (Bld) [#/Vol]Ordere d By: Brendan Mitchell on 09-05-2022 RBC (Bld) [#/Vol] 4.07 10*6/uL 3.60-5.00 [facility] Serum or plasma alanine greene otransferase measurement without P-5'-P (enzymatic activiOrdered By: Brendan Mitchell on 09-05-2022 ALT No additional P-5'-P [Catalytic activity/Vol] 22 U/L 10-60 [facility] Serum or plasma albumin/glob ulin mass ratioOrdered By: Brendan Mitchell on 09-05-2022 Albumin/Globulin [Mass ratio] 1.3 {ratio} [facility] Serum or plasma alkaline rich sphatase measurement (enzymatic activity/volume)Ordered By: Brendan Mitchell on 09-05-2022 ALP [Catalytic activity/Vol] 46 U/L 32-92 [facility] Serum or plasma anion gap de terminationOrdered By: Brendan Mitchell on 09-05-2022 Anion gap [Moles/Vol] 12.9 mmol/L 6.0-15.0 [facility] Serum or plasma aspartate am inotransferase measurement (enzymatic activity/volume)Ordered By: Brendan Mitchell on 09-05-2022 AST [Catalytic activity/Vol] 20 U/L 10-42 [facility] Serum or plasma calcium michell urement (mass/volume)Ordered By: Brendan Mitchell on 09-05-2022 Calcium [Mass/Vol] 9.6 mg/dL 8.2-10.2 [facility] Serum or plasma chloride amber surement (moles/volume)Ordered By: Brendan Mitchell on 09-05-2022 Chloride [Moles/Vol] 102 mmol/L 95-114 [facility] Serum or plasma glucose michell urement (mass/volume)Ordered By: Brendan Mitchell on 09-05-2022 Glucose [Mass/Vol] 115 mg/dL 70-100 [facility] Comment on above: ADA recommended refe rence rangeRandom Glucose Reference Range is dependent on time and content of last meal. Glucose of more than 200 mg/dL in a nonstressed, ambulatory subject supports the diagnosis of Diabetes Mellitus. Serum or plasma potassium me asurement (moles/volume)Ordered By: Brendan Mitchell on 09-05-2022 Potassium [Moles/Vol] 3.6 mmol/L 3.5-5.1 [facility] Serum or plasma sodium measu rement (moles/volume)Ordered By: Brendan Mitchell on 09-05-2022 Sodium [Moles/Vol] 139 mmol/L 136-146 [facility] Serum or plasma total biliru bin measurement (mass/volume)Ordered By: Brendan Mitchell on 09-05-2022 Bilirubin [Mass/Vol] 0.3 mg/dL 0.3-1.2 [facility] Serum or plasma total carbon dioxide measurement (moles/volume)Ordered By: Brendan Mitchell on 09-05-2022 CO2 [Moles/Vol] 27.7 mmol/L 22.0-30.0 [facility] Serum or plasma urea nitroge n measurement (mass/volume)Ordered By: Brendan Mitchell on 09-05-2022 Urea nitrogen [Mass/Vol] 12 mg/dL 08-21 [facility] Specific gravity Auto test s trip (U) [Rel density]Ordered By: Brendan Mitchell on 09-05-2022 Specific gravity (U) [Rel density] 1.022 1.001-1.030 [facility] Urinalysison 09-05-2022 Appearance (U) Clear Normal Clear [facility] Comment on above: Order Comment: Name Collection Type:: Clean-Voided Midstream Performed By: #### U A #### [facility] [address] [place] [address] [place] Bilirubin,Urine Negative Normal Negative [facility] Comment on above: Order Comment: Name Collection Type:: Clean-Voided Midstream Performed By: #### U A #### [facility] [address] [place] [address] [place] Color (U) Dark Yellow Critically abnormal Yellow [facility] Comment on above: Order Comment: Name Collection Type:: Clean-Voided Midstream Performed By: #### U A #### [facility] [address] [place] [id number] [place] Glucose Ql (U) Normal Normal Normal [facility] Comment on above: Order Comment: Name Collection Type:: Clean-Voided Midstream Performed By: #### U A #### [facility] [address] [place] [id number] [place] Ketones Ql (U) Negative Normal Negative [facility] Comment on above: Order Comment: Name Collection Type:: Clean-Voided Midstream Performed By: #### U A #### [facility] [address] [place] [address] Leukocyte esterase Test strip Ql (U) Negative Normal Negative [facility] Comment on above: Order Comment: Name Collection Type:: Clean-Voided Midstream Performed By: #### U A #### [address] Nitrite,Urine Negative Normal Negative [facility] Comment on above: Order Comment: Name Collection Type:: Clean-Voided Midstream Performed By: #### U A #### [address] Occult Blood,Urine Negative Normal Negative [facility] Comment on above: Order Comment: Name Collection Type:: Clean-Voided Midstream Result Comment: PERF ORMED BY: [place] [address] PATHOLOGIST [employer]GANIZATIONAL [employer]EARCH CONSULTANT HELENA BEVERLY M.D. Performed By: #### U A #### [address] pH (U) 6.5 [pH] Normal 5.0-9.0 [facility] Comment on above: Order Comment: Name Collection Type:: Clean-Voided Midstream Performed By: #### U A #### [address] Protein,Urine Negative Normal Negative [facility] Comment on above: Order Comment: Name Collection Type:: Clean-Voided Midstream Performed By: #### U A #### [address] Specificy [place],Urine 1.022 Normal 1.001-1.030 [facility] Comment on above: Order Comment: Name Collection Type:: Clean-Voided Midstream Performed By: #### U A #### [address] Urobilinogen,Urine Normal Normal Normal [facility] Comment on above: Order Comment: Name Collection Type:: Clean-Voided Midstream Performed By: #### U A #### [address] [place] [address] [facility] Urine clarity by refractomet ry automatedOrdered By: Brendan Mitchell on 09-05-2022 Clarity Refractometry automated (U) Clear Clear [facility] Urine glucose measurement by automated test strip (mass/volume)Ordered By: Brendan Mitchell on 09-05-2022 Glucose Auto test strip (U) [Mass/Vol] Normal mg/dL Normal [facility] Urine hemoglobin detection b y automated test stripOrdered By: Brendan Mitchell on 09-05-2022 Hemoglobin Auto test strip Ql (U) Negative Negative [facility] Urine leukocyte esterase det ection by automated test stripOrdered By: Brendan Mitchell on 09-05-2022 Leukocyte esterase Auto test strip Ql (U) Negative Negative [facility] Urobilinogen Auto test strip (U) [Mass/Vol]Ordered By: Brendan Mitchell on 09-05-2022 Urobilinogen (U) [Mass/Vol] Normal mg/dL Normal [facility] pH Auto test strip (U)Ordere d By: Brendan Mitchell on 09-05-2022 pH (U) 6.5 [pH] 5.0-9.0 [facility] INSULINon 09-03-2022 Insulin 15.6 uIU/mL Normal 2.6-24.9 [facility] Comment on above: Performed By: #### I NSULIN #### [facility] [address] [place] [address] Dr. Nahomi Arana CBC AUTO DIFFon 09-02-2022 BASO # 0.0 103/ul Normal 0.0-0.1 [facility] Comment on above: Performed By: #### E BVPROF #### [facility] [address] [place] [address] Dr. Nahomi Arana Basophils/100 WBC (Bld) 0.5 % Normal 0.2-2.0 [facility] Comment on above: Performed By: #### E BVPROF #### [facility] [address] [place] [address] Dr. Nahomi Arana EO # 0.2 103/ul Normal 0.0-0.7 [facility] Comment on above: Performed By: #### E BVPROF #### [facility] [address] [place] [address] Dr. Nahomi Arana Eosinophils/100 WBC (Bld) 2.2 % Normal 0.9-7.0 [facility] Comment on above: Performed By: #### E BVPROF #### [facility] [address] [place] [address] Dr. Nahomi Arana Erythrocyte distribution width (RBC) [Ratio] 13.2 % Normal 11.0-15.0 [facility] Comment on above: Performed By: #### E BVPROF #### [facility] [address] [place] [address] Dr. Nahomi Arana Hematocrit (Bld) [Volume fraction] 39.3 % Normal 36.0-48.0 [facility] Comment on above: Performed By: #### E BVPROF #### [facility] [address] [place] [address] Dr. Nahomi Arana Hemoglobin (Bld) [Mass/Vol] 13.0 g/dL Normal 12.0-16.0 [facility] Comment on above: Performed By: #### E BVPROF #### [facility] [address] [place] [address] Dr. Nahomi Arana IG # 0.02 10e3/ul Normal 0.00-0.03 [facility] Comment on above: Performed By: #### E BVPROF #### [facility] [address] [place] [address] Dr. Nahomi Arana IG % 0.2 % Normal 0.0-0.5 [facility] Comment on above: Performed By: #### E BVPROF #### [facility] [address] [place] [address] Dr. Nahomi Arana LYMPH # 2.2 103/ul Normal 1.2-3.8 [facility] Comment on above: Performed By: #### E BVPROF #### [facility] [address] [place] [address] Dr. Nahomi Arana Lymphocytes/100 WBC (Bld) 25.7 % Normal 20.5-60.0 [facility] Comment on above: Performed By: #### E BVPROF #### [facility] [address] [place] [address] Dr. Nahomi Arana MANUAL DIFF REQ NO Normal [facility] Comment on above: Performed By: #### E BVPROF #### [facility] [address] [place] [address] Dr. Nahomi Arana MCH (RBC) [Entitic mass] 30.0 pg Normal 26.7-34.0 [facility] Comment on above: Performed By: #### E BVPROF #### [facility] [address] [place] [address] Dr. Nahomi Arana MCHC (RBC) [Mass/Vol] 33.1 g/dL Normal 29.9-35.2 [facility] Comment on above: Performed By: #### E BVPROF #### [facility] [address] [place] [address] Dr. Nahomi Arana MCV (RBC) [Entitic vol] 90.6 fL Normal 81.0-99.0 [facility] Comment on above: Performed By: #### E BVPROF #### [facility] [address] [place] [address] Dr. Nahomi Arana MONO # 0.5 103/ul Normal 0.3-0.8 [facility] Comment on above: Performed By: #### E BVPROF #### [facility] [address] [place] [address] Dr. Nahomi Arana Monocytes/100 WBC (Bld) 5.8 % Normal 1.7-12.0 [facility] Comment on above: Performed By: #### E BVPROF #### [facility] [address] [place] [address] Dr. Nahomi Arana NEUT # 5.6 103/ul Normal 1.4-6.5 [facility] Comment on above: Performed By: #### E BVPROF #### [facility] [address] [place] [address] Dr. Nahomi Arana Neutrophils/100 WBC (Bld) 65.6 % Normal 43.0-75.0 [facility] Comment on above: Performed By: #### E BVPROF #### [facility] [address] [place] [address] Dr. Nahomi Arana Platelet mean volume (Bld) [Entitic vol] 9.1 fL Critically low 9.5-13.5 [facility] Comment on above: Performed By: #### E BVPROF #### [facility] [address] [place] [address] Dr. Nahomi Arana PLT 340 103/ul Normal 150-450 [facility] Comment on above: Performed By: #### E BVPROF #### [facility] [address] [place] [address] Dr. Nahomi Arana RBC 4.34 106/ul Normal 4.20-5.40 [facility] Comment on above: Performed By: #### E BVPROF #### [facility] [address] [place] [address] Dr. Nahomi Arana WBC 8.5 103/ul Normal 4.0-11.0 [facility] Comment on above: Performed By: #### E BVPROF #### [facility] [address] [place] [address] Dr. Nahomi Arana CULTURE URINEon 09-02-2022 CULTURE URINE Culture Observations: LIGHT GROWTH OF MIXED GENITAL TOMMY. NO POTENTIAL PATHOGENS SEEN. Normal [facility] Comment on above: Performed By: #### E BVPROF #### [facility] [address] [place] [address] Dr. Nahomi Arana FREE THYROXINE INDEX T7on FTI 2.83 Normal 1.30-4.50 [facility] Comment on above: Performed By: #### C MP, LIPID, TSH, T7 #### [facility] [address] [place] [address] Dr. Nahomi Arana T3U 26.0 % Critically low 30.0-39.0 [facility] Comment on above: Performed By: #### C MP, LIPID, TSH, T7 #### [facility] [address] [place] [address] Dr. Nahomi Arana T4 [Mass/Vol] 10.90 ug/dL Normal 4.80-13.90 [facility] Comment on above: Performed By: #### C MP, LIPID, TSH, T7 #### [facility] [address] [place] [address] Dr. Nahomi Arana GLYCOHEMOGLOBIN A1Con 2021 ADA RECOMMENDATION SEE BELOW Normal [facility] Comment on above: Result Comment: ADA RECOMMENDED LIMIT 4.0 - 6.0 ADA THERAPEUTIC TARGET < 7.0 ACTION SUGGESTED > 7.0 Performed By: #### E BVPROF #### [facility] [address] [place] [address] Dr. Nahomi Arana Glucose [Mass/Vol] 108 mg/dL Normal [facility] Comment on above: Performed By: #### E BVPROF #### [facility] [address] [place] [address] Dr. Nahomi Arana HbA1c (Bld) [Mass fraction] 5.4 % Normal 4.5-6.2 [facility] Comment on above: Performed By: #### E BVPROF #### [facility] [address] [place] [address] Dr. Nahomi Arana IRONon 09-02-2022 Iron [Mass/Vol] 84.0 ug/dL Normal 50.0-170.0 [facility] Comment on above: Performed By: #### I ALISHA CHÁVEZ #### [facility] [address] [place] [address] Dr. Nahomi Arana LIPID PROFILEon 09-02-2022 CHOL-HDL RATIO NORM SEE BELOW Normal [facility] Comment on above: Result Comment: 3.3 - 4.4 LOW RISK 4.4 - 7.1 AVERAGE RISK 7.1 - 11.0 MODERATE RISK >11.0 HIGH RISK Performed By: #### C MP, LIPID, TSH, T7 #### [facility] [address] [place] [address] Dr. Nahomi Arana Cholesterol [Mass/Vol] 201 mg/dL Critically high <=200 [facility] Comment on above: Performed By: #### C MP, LIPID, TSH, T7 #### [facility] [address] [place] [address] [address] Nahomi Arana Cholesterol in HDL [Mass/Vol] 57 mg/dL Normal 40-60 [facility] Comment on above: Performed By: #### C MP, LIPID, TSH, T7 #### [facility] [address] [place] [address] [address] Nahomi Arana Cholesterol in LDL [Mass/Vol] 101.6 mg/dL Normal [facility] Comment on above: Performed By: #### C MP, LIPID, TSH, T7 #### [facility] [address] [place] [address] [address] Nahomi Arana Cholesterol.total/Cholest damion in HDL [Mass ratio] 3.5 {ratio} Normal [facility] Comment on above: Performed By: #### C MP, LIPID, TSH, T7 #### [facility] [address] [place] [address] [address] Nahomi Arana HDL NORMAL > or = 60 mg/dl - LOW CARDIOVASCULAR RISK <40 mg/dl - HIGH CARDIOVASCULAR RISK Normal [facility] Comment on above: Performed By: #### C MP, LIPID, TSH, T7 #### [facility] [address] [place] [address] [address] Nahomi Arana LDL CALC NORMAL SEE BELOW Normal [facility] Comment on above: Result Comment: <100 mg/dl OPTIMAL 100 - 129 mg/dl NEAR OR ABOVE OPTIMAL 130 - 159 mg/dl BORDERLINE HIGH 160 - 189 mg/dl HIGH >190 mg/dl VERY HIGH Performed By: #### C MP, LIPID, TSH, T7 #### [facility] [address] [place] [address] [address] Nahomi Arana Triglyceride [Mass/Vol] 212 mg/dL Critically high <=150 [facility] Comment on above: Performed By: #### C MP, LIPID, TSH, T7 #### [facility] [address] [place] [address] [address] Nahomi Arana VLDL CALC 42.4 mg/dL Normal [facility] Comment on above: Performed By: #### C MP, LIPID, TSH, T7 #### [facility] [address] [place] [address] Dr. Nahomi Arana PROF 14(COMP METB)on 022 Albumin [Mass/Vol] 3.7 g/dL Normal 3.4-5.0 [facility] Comment on above: Performed By: #### C MP, LIPID, TSH, T7 #### [facility] [address] [place] [address] Dr. Nahomi Arana Albumin/Globulin [Mass ratio] 1.1 {ratio} Normal [facility] Comment on above: Performed By: #### C MP, LIPID, TSH, T7 #### [facility] [address] [place] [address] Dr. Nahomi Arana ALP [Catalytic activity/Vol] 59 U/L Normal 46-116 [facility] Comment on above: Performed By: #### C MP, LIPID, TSH, T7 #### [facility] [address] [place] [address] Dr. Nahomi Arana ALT [Catalytic activity/Vol] 26 U/L Normal 14-59 [facility] Comment on above: Performed By: #### C MP, LIPID, TSH, T7 #### [facility] [address] [place] [address] Dr. Nahomi Arana Anion gap [Moles/Vol] 8.6 mmol/L Normal [facility] Comment on above: Performed By: #### C MP, LIPID, TSH, T7 #### [facility] [address] [place] [address] Dr. Nahomi Arana AST [Catalytic activity/Vol] 13 U/L Critically low 15-37 [facility] Comment on above: Performed By: #### C MP, LIPID, TSH, T7 #### [facility] [address] [place] [address] Dr. Nahomi Arana Bilirubin [Mass/Vol] 0.4 mg/dL Normal 0.2-1.0 [facility] Comment on above: Performed By: #### C MP, LIPID, TSH, T7 #### [facility] [address] [place] [address] Dr. Nahomi Arana Calcium [Mass/Vol] 9.4 mg/dL Normal 8.5-10.1 [facility] Comment on above: Performed By: #### C MP, LIPID, TSH, T7 #### [facility] [address] [place] [address] [address] Nahomi Arana Chloride [Moles/Vol] 104 mmol/L Normal 98-107 [facility] Comment on above: Performed By: #### C MP, LIPID, TSH, T7 #### [facility] [address] [address] [address] Nahomi Arana CO2 [Moles/Vol] 31.5 mmol/L Normal 21.0-32.0 [facility] Comment on above: Performed By: #### C MP, LIPID, TSH, T7 #### [facility] [address] [place] [address] Dr. Nahomi Arana Creatinine [Mass/Vol] 0.80 mg/dL Normal 0.55-1.02 [facility] Comment on above: Performed By: #### C MP, LIPID, TSH, T7 #### [facility] [address] [place] [address] Dr. Nahomi Arana EGFR-AF GHANAIAN >60 Normal >=60 [facility] Comment on above: Performed By: #### C MP, LIPID, TSH, T7 #### [facility] [address] [place] [address] Dr. Nahomi Arana EGFR-NON AF GHANAIAN >60 Normal >=60 [facility] Comment on above: Performed By: #### C MP, LIPID, TSH, T7 #### [facility] [address] [place] [address] Dr. Nahomi Arana Globulin (S) [Mass/Vol] 3.5 g/dL Normal T [facility] Comment on above: Performed By: #### C MP, LIPID, TSH, T7 #### [facility] [address] [place] [address] Dr. Nahomi Arana Glucose [Mass/Vol] 96 mg/dL Normal 74-106 [facility] Comment on above: Performed By: #### C MP, LIPID, TSH, T7 #### [facility] [address] [place] [address] Dr. Nahomi Arana Potassium [Moles/Vol] 4.1 mmol/L Normal 3.5-5.1 [facility] Comment on above: Performed By: #### C MP, LIPID, TSH, T7 #### [facility] [address] [place] [address] Dr. Nahomi Arana Protein [Mass/Vol] 7.2 g/dL Normal 6.4-8.2 [facility] Comment on above: Performed By: #### C MP, LIPID, TSH, T7 #### [facility] [address] [place] [address] Dr. Nahomi Arana Sodium [Moles/Vol] 140 mmol/L Normal 136-145 [facility] Comment on above: Performed By: #### C MP, LIPID, TSH, T7 #### [facility] [address] [place] [address] Dr. Nahomi Arana Urea nitrogen [Mass/Vol] 12.0 mg/dL Normal 7.0-18.0 [facility] Comment on above: Performed By: #### C MP, LIPID, TSH, T7 #### [facility] [address] [place] [address] Dr. Nahomi Arana Urea nitrogen/Creatinine [Mass ratio] 15.0 mg/mg Normal [facility] Comment on above: Performed By: #### C MP, LIPID, TSH, T7 #### [facility] [address] [place] [address] Dr. Nahomi Arana TSHon 09-02-2022 TSH 0.743 uIU/mL Normal 0.358-3.[address] [facility] Comment on above: Performed By: #### C MP, LIPID, TSH, T7 #### [facility] [address] [place] [address] Dr. Nahomi Arana UA RANDOM W/MICROSCOPICon BACTERIA TRACE Abnormal NONE SEEN [facility] Comment on above: Performed By: #### U AMIC #### [facility] [address] [place] [address] Dr. Nahomi Arana Bilirubin Ql (U) Negative Normal NEGATIVE [facility] Comment on above: Performed By: #### U AMIC #### [facility] [address] [place] [address] [address] Nahomi Arana CAST NONE SEEN Normal NONE SEEN [facility] Comment on above: Performed By: #### U AMIC #### [facility] [address] [address] [address] Nahomi Arana Clarity (U) CLEAR Normal CLEAR [facility] Comment on above: Performed By: #### U AMIC #### [facility] [address] [address] [address] Nahomi Arana Color (U) YELLOW Normal YELLOW [facility] Comment on above: Performed By: #### U AMIC #### [facility] [address] [place] [address] Dr. Nahomi Arana Crystals LM Nom (Urine sed) NONE SEEN Normal NONE SEEN [facility] Comment on above: Performed By: #### U AMIC #### [facility] [address] [address] [address] Nahomi Arana Epithelial cells LM Ql (Urine sed) RARE Normal NONE SEEN /RARE [facility] Comment on above: Performed By: #### U AMIC #### [facility] [address] [address] [address] Nahomi Arana Glucose Ql (U) Negative Normal NEGATIVE [facility] Comment on above: Performed By: #### U AMIC #### [facility] [address] [address] [address] Nahomi Arana Hemoglobin Ql (U) Negative Normal NEGATIVE [facility] Comment on above: Performed By: #### U AMIC #### [facility] [address] [address] [address] Nahomi Arana Ketones Ql (U) Negative Normal NEGATIVE [facility] Comment on above: Performed By: #### U AMIC #### [facility] [address] [address] [address] Nahomi Arana LEUKOCYTES Negative Normal NEGATIVE [facility] Comment on above: Performed By: #### U AMIC #### [facility] [address] [address] [address] Nahomi Arana MUCOUS TRACE Abnormal NONE SEEN [facility] Comment on above: Performed By: #### U AMIC #### [facility] [address] [address] [address] Nahomi Arana Nitrite Ql (U) Negative Normal NEGATIVE [facility] Comment on above: Performed By: #### U AMIC #### [facility] [address] [address] [address] Nahomi Arana pH (U) 5.5 [pH] Normal 5-9 [facility] Comment on above: Performed By: #### U AMIC #### [facility] [address] [place] [address] Dr. Nahomi Arana RBC 0-2 Normal 0-2 [facility] Comment on above: Performed By: #### U AMIC #### [facility] [address] [place] [address] Dr. Nahomi Arana SPEC GRAVITY >=1.030 Abnormal 1.005-<=1.02 5 [facility] Comment on above: Performed By: #### U AMIC #### [facility] [address] [place] [address] Dr. Nahomi Arana UA PROTEIN Negative Normal NEGATIVE/ TRACE [facility] Comment on above: Performed By: #### U AMIC #### [facility] [address] [place] [address] Dr. Nahomi Arana Urobilinogen Qn (U) 0.2 {Jesus'U}/dL Normal 0.2 - 1. 0 [facility] Comment on above: Performed By: #### U AMIC #### [facility] [address] [place] [address] Dr. Nahomi Arana WBC 0-2 Abnormal NONE SEEN [facility] Comment on above: Performed By: #### U AMIC #### [facility] [address] [place] [address] Dr. Nahomi Arana VITAMIN D 25 OHon 09-02-2022 VIT D 25-OH 29.5 ng/mL Normal [facility] Comment on above: Performed By: #### I KYLER VITAD #### [facility] [address] [place] [address] Dr. Nahomi Arana VIT D RANGES SEE BELOW Normal [facility] Comment on above: Result Comment: <20 ng/mL Vit D deficient 20 - <30 ng/mL Vit D insufficient 30 - 100 ng/mL Vit D sufficient >100 ng/mL Potential Toxicity Performed By: #### I KYLER VITAD #### [facility] [address] [place] [address] Dr. Nahomi Arana PAP ACOG PANEL 2: 30 to 65on 07-10-2022 . . Normal [facility] Comment on above: Result Comment: Perf ormed at: WB Performed By: #### E BVPROF #### [facility] [address] [place] [address] Dr. Nahomi Arana Age Gdln ACOG Testing 30-65 Normal [facility] Comment on above: Performed By: #### E BVPROF #### [facility] [address] [place] [address] Dr. Nahomi Arana DIAGNOSIS: Comment Normal [facility] Comment on above: Result Comment: NEGA TIVE FOR INTRAEPITHELIAL LESION OR MALIGNANCY. Performed at: WB Performed By: #### E BVPROF #### [facility] [address] [place] [address] Dr. Nahomi Arana HPV Aptima Negative Normal Negative [facility] Comment on above: Result Comment: This nucleic acid amplification test detects fourteen high-risk HPV types (16,18,31,33,35,39,45,51,52,56,58,59,66,68) without differentiation. Performed at: =G Performed By: #### E BVPROF #### [facility] [address] [place] [address] Dr. Nahomi Arana Methodology: Comment Normal [facility] Comment on above: Result Comment: This liquid based ThinPrep(R) pap test was screened with the use of an image guided system. Performed at: WB Performed By: #### E BVPROF #### [facility] [address] [place] [address] Dr. Nahomi Arana Note: Comment Normal [facility] Comment on above: Result Comment: The [...] WB Performed By: #### E BVPROF #### [facility] [address] [place] [address] Dr. Nahomi Arana Performed by: Comment Normal [facility] Comment on above: Result Comment: Sabra Bryant, Audio Narrator (ASCP) Performed at: WB Performed By: #### E BVPROF #### [facility] [address] [place] [address] Dr. Nahomi Arana Specimen adequacy: Comment Normal [facility] Comment on above: Result Comment: Sati sfactory for evaluation. No endocervical component is identified. Performed at: WB Performed By: #### E BVPROF #### [facility] [address] [place] [address] Dr. Nahomi Arana Covid-19 PCR (CVDTB)on 04-30 SARS-CoV-2 (COVID-19) RNA ORTIZ+probe Ql (Unsp spec) Detected Critically abnormal NOT DETECTED [facility] Comment on above: Result Comment: This test is not yet approved or cleared by the [place] FDA. When there are no FDA-approved or cleared tests available, and other criteria are met, FDA can make tests available under an emergency access mechanism called an Emergency Use Authorization (EUA). The EUA for this test is supported by the [employer] of Health and Human Service's declaration that [...] used). Performed By: #### C VDTBH #### [facility] [address] [place] [address] Dr. Nahomi Arana ZAID by IFAon 12-09-2021 ZAID Pattern Negative Normal [facility] Comment on above: Performed By: #### W SR, VITD, C3COMP, C4COMP, CRP, ENAID, CCP, ANAIFS, RF, DNAAB, CK ####[address] [phone] ZAID Titer Negative Normal Negative [facility] Comment on above: Result Comment: Norm al range : negative at <1:80 serum dilution. Performed By: #### W SR, VITD, C3COMP, C4COMP, CRP, ENAID, CCP, ANAIFS, RF, DNAAB, CK ####[address] [phone] Nuclear Ab IF (S) [Titer] Negative Normal Negative [facility] Comment on above: Result Comment: Norm [...] CRP, ENAID, CCP, ANAIFS, RF, DNAAB, CK ####[address] [phone] C-Reactive Proteinon 022 C-Reactive Protein 0.3 mg/dL Normal <0.9 [facility] Comment on above: Performed By: #### W SR, VITD, C3COMP, C4COMP, CRP, ENAID, CCP, ANAIFS, RF, DNAAB, CK ####[address] [phone] C3 Complementon 12-09-2021 C3 Complement 167 mg/dL High 86-166 [facility] Comment on above: Performed By: #### W SR, VITD, C3COMP, C4COMP, CRP, ENAID, CCP, ANAIFS, RF, DNAAB, CK ####[address] [place], [place] [phone] C4 Complementon 12-09-2021 C4 Complement 21 mg/dL Normal 13-46 [facility] Comment on above: Performed By: #### W SR, VITD, C3COMP, C4COMP, CRP, ENAID, CCP, ANAIFS, RF, DNAAB, CK ####[address] [phone] CCP Antibody, IgGon 12-09-19 22 CCP Antibody, IgG <15 Normal <20 [facility] Comment on above: Result Comment: < 20 units: Negative 20-39 units: Weak Positive 40-59 units: Moderate Positive > 60 units: Strong Positive The following results were obtained with the [employer] QUANTA Lite CCP3 IgG ANGELICA. Anti-CCP values obtained with different manufacturers' assay methods may not be used interchangeably. The magnitude of the reported IgG levels cannot be correlated to an endpoint titer. Performed By: #### W SR, VITD, C3COMP, C4COMP, CRP, ENAID, CCP, ANAIFS, RF, DNAAB, CK ####[address] [phone] CKon 12-09-2021 CK [Catalytic activity/Vol] 117 U/L Normal 42-196 [facility] Comment on above: Performed By: #### W SR, VITD, C3COMP, C4COMP, CRP, ENAID, CCP, ANAIFS, RF, DNAAB, CK ####[address] [place], [place] [phone] CNOVon 12-09-2021 CNOV Office Visit (RHEUMN) ---- YONATANZAKIYA Walsh ([id number]) 1975 F Date Time Provider Department 12/09/21 [...] (human papilloma virus) infection - Hyperlipidemia 09/2015 [id number] - Migraine - Neuropathy Diagnosis made by [...] Lysis of adhesions.Monarc transobturator midurethral sling, ref [id number], lot [id number]. 4. Posterior repair. - REMOVAL ADENOIDS,PRIMARY,<1 2 [...] LEAST 35 (more content not included)... Normal [facility] DNA Antibodyon 12-09-2021 DNA Antibody 16 IU/mL Normal <30 [facility] Comment on above: Result Comment: Nega tive for ds DNA Antibodies Negative: <30 IU/mL Equivocal: 30-74 IU/mL Positive: >74 IU/mL Performed By: #### W SR, VITD, C3COMP, C4COMP, CRP, ENAID, CCP, ANAIFS, RF, DNAAB, CK ####[address] [facility] [place], [place] [phone] JAMEEL Antibody Panelon 022 Centromere <0.2 Normal <1.0 [facility] Comment on above: Result Comment: NEGA TIVE Negative: <1.0 AI Positive: >0.9 AI Test performed using the Multiplex Flow Immunoassay technology. Performed By: #### W SR, VITD, C3COMP, C4COMP, CRP, ENAID, CCP, ANAIFS, RF, DNAAB, CK ####[address] [place], [place] [phone] Chromatin Antibody <0.2 Normal <1.0 [facility] Comment on above: Result Comment: NEGA TIVE Negative: <1.0 AI Positive: >0.9 AI Test performed using the Multiplex Flow Immunoassay technology. Performed By: #### W SR, VITD, C3COMP, C4COMP, CRP, ENAID, CCP, ANAIFS, RF, DNAAB, CK ####[address] [place], [place] [phone] NICOLE 1 Antibody <0.2 Normal <1.0 [facility] Comment on above: Result Comment: NEGA TIVE Negative: <1.0 AI Positive: >0.9 AI Test performed using the Multiplex Flow Immunoassay technology. Performed By: #### W SR, VITD, C3COMP, C4COMP, CRP, ENAID, CCP, ANAIFS, RF, DNAAB, CK ####[address] [phone] Ribosomal DIGITAL PHOTOGRAPHER <0.2 Normal <1.0 [facility] Comment on above: Result Comment: NEGA TIVE Negative: <1.0 AI Positive: >0.9 AI Test performed using the Multiplex Flow Immunoassay technology. Performed By: #### W SR, VITD, C3COMP, C4COMP, CRP, ENAID, CCP, ANAIFS, RF, DNAAB, CK ####[address] [phone] DIGITAL PHOTOGRAPHER Antibody <0.2 Normal <1.0 [facility] Comment on above: Result Comment: NEGA TIVE Negative: <1.0 AI Positive: >0.9 AI Test performed using the Multiplex Flow Immunoassay technology. Performed By: #### W SR, VITD, C3COMP, C4COMP, CRP, ENAID, CCP, ANAIFS, RF, DNAAB, CK ####[address] [phone] Scleroderma IgG Ab <0.2 Normal <1.0 [facility] Comment on above: Result Comment: NEGA TIVE Negative: <1.0 AI Positive: >0.9 AI Test performed using the Multiplex Flow Immunoassay technology. Performed By: #### W SR, VITD, C3COMP, C4COMP, CRP, ENAID, CCP, ANAIFS, RF, DNAAB, CK ####[address] [phone] Sm Antibody <0.2 Normal <1.0 [facility] Comment on above: Result Comment: NEGA TIVE Negative: <1.0 AI Positive: >0.9 AI Test performed using the Multiplex Flow Immunoassay technology. Performed By: #### W SR, VITD, C3COMP, C4COMP, CRP, ENAID, CCP, ANAIFS, RF, DNAAB, CK ####[address] [place] [address], [place] [phone] SSA Antibody <0.2 Normal <1.0 [facility] Comment on above: Result Comment: NEGA TIVE Negative: <1.0 AI Positive: >0.9 AI Test performed using the Multiplex Flow Immunoassay technology. Performed By: #### W SR, VITD, C3COMP, C4COMP, CRP, ENAID, CCP, ANAIFS, RF, DNAAB, CK ####[facility], [place] [phone] SSB Antibody <0.2 Normal <1.0 [facility] Comment on above: Result Comment: NEGA TIVE Negative: <1.0 AI Positive: >0.9 AI Test performed using the Multiplex Flow Immunoassay technology. Performed By: #### W SR, VITD, C3COMP, C4COMP, CRP, ENAID, CCP, ANAIFS, RF, DNAAB, CK ####[facility], [place] [phone] Rheumatoid Factoron 12-09-19 22 Rheumatoid Factor <10 Normal <16 [facility] Comment on above: Performed By: #### W SR, VITD, C3COMP, C4COMP, CRP, ENAID, CCP, ANAIFS, RF, DNAAB, CK ####[address], [place] [phone] Sed Rate Westergrenon 2021 Sed Rate Westergren 20 mm/hr Normal 0-20 [facility] Comment on above: Performed By: #### W SR, VITD, C3COMP, C4COMP, CRP, ENAID, CCP, ANAIFS, RF, DNAAB, CK ####[address], [place] [phone] Urinalysison 12-09-2021 Bilirubin, Urine Negative Normal Negative [facility] Comment on above: Performed By: #### U A ####[address] [address] [address] [phone] Clarity (U) Clear Normal Clear [facility] Comment on above: Performed By: #### U A ####[address] [phone] Color (U) Straw Critically abnormal Yellow [facility] Comment on above: Performed By: #### U A ####[address] [phone] Comments SEE COMMENT Normal [facility] Comment on above: Result Comment: Micr oscopic Examination Performed Performed By: #### U A ####[address] [phone] Epithelial cells LM Ql (Urine sed) SEE COMMENT Normal [facility] Comment on above: Result Comment: Few Squamous Epithelial Cells Performed By: #### U A ####[address] [phone] Glucose Ql (U) Negative Normal Negative [facility] Comment on above: Performed By: #### U A ####[address] [phone] Hemoglobin/Blood,Ur 1+ Critically abnormal Negative [facility] Comment on above: Performed By: #### U A ####[address] [phone] Ketones Ql (U) Negative Normal Negative [facility] Comment on above: Performed By: #### U A ####[address] [address] [address] [phone] Leukest Negative Normal Negative [facility] Comment on above: Performed By: #### U A ####[address] [address] [address] [phone] Nitrite Ql (U) Negative Normal Negative [facility] Comment on above: Performed By: #### U A ####[address] [address] [place], [place] [phone] pH (U) 6.0 [pH] Normal 5.0-8.0 [facility] Comment on above: Performed By: #### U A ####[address] [phone] Protein, Urine Negative Normal Negative [facility] Comment on above: Performed By: #### U A ####[address] [phone] RBC 0-3 Normal 0-3 [facility] Comment on above: Performed By: #### U A ####[address] [phone] Specific [place], Ur 1.008 Normal 1.005-1.030 [facility] Comment on above: Performed By: #### U A ####[address] [phone] Urine Abdirizak Comment SEE COMMENT Normal [facility] Comment on above: Result Comment: N/A Performed By: #### U A ####[address] [phone] Urobilinogen (U) [Mass/Vol] Negative Normal Negative [facility] Comment on above: Performed By: #### U A ####[address] [phone] WBC 0-5 Normal 0-5 [facility] Comment on above: Performed By: #### U A ####[address] [phone] Vitamin D 25 Hydroxyon 12-09 Vitamin D 25 Hydroxy 27.5 ng/mL Low 31.0-80.0 [facility] Comment on above: Result Comment: Clas sification of 25 [place] Vitamin D status: Insufficiency/Moderate Deficiency: < or = 30 ng/mL Sufficiency/Optimal Levels: 31 to 80 ng/mL Toxicity: > 100 ng/mL Test performed by chemiluminescent immunoassay. Performed By: #### W SR, VITD, C3COMP, C4COMP, CRP, ENAID, CCP, ANAIFS, RF, DNAAB, CK ####[facility] [address] [place], [place] [phone] XR HAND 3V PA/LAT/OBL BILon 12-09-2021 XR [...] No other significant abnormality. ------- IMPRESSION: OSTEOARTHRITIS [employer] Front Desk Clerk: CELSO Transcribe Date/Time: Dec 09 2021 3:11P Dictated by : MIRIAM BILL MD This examination was interpreted and the report reviewed and electronically signed by: MIRIAM BILL MD on Dec 09 2021 3:12PM EST [id number] Normal [facility] CNOVon 08-14-2021 CNOV Office Visit (GYNMN) ---- ZAKIYA CUELLO ([id number]) 1975 F Date Time Provider Department 08/14/21 1:30 PM FATOUMATA [facility]ILD GYNRI During your visit today, we recorded the [...] (human papilloma virus) infection - Hyperlipidemia 09/2015 [id number] - Migraine - Neuropathy Diagnosis made by [...] Lysis of adhesions.Monarc transobturator midurethral sling, ref [id number], lot [id number]. 4. Posterior repair. 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 Visit naval science teacher present: Berna Sethi MA GEN: Pleasant, cooperative, NAD SKIN: Color, texture, turgor nl. Warm, dry. ENDO: No obvious hirsutism signs. EYES: Conjunctivae clear. No discoloration. NECK: No mass LUNGS: Breathing comfortably without distress, CTAB HEART: RRR, no r/g ABDOMEN: Soft. NTND. No masses. PELVIC: external genitalia normal, normal Bartholin's glands, urethra, Weidman's glands, no vulvar lesions, good vaginal support, physiologic discharge present, normal appearing perineal body and perianal region. No cervical lesions. BIMANUAL: no adnexal masses and non-tender. uterus normal size, shape and consistency THE FOLLOWIN (more content not included)... Normal [facility] 05-08-2021 CNPN Telephone (DERBMN) ---- ZAKIYA CUELLO ([id number]) 1975 F Date Time Provider Department 05/08/21 [...] Encounter Status:Closed by TAMELA VASQUEZ on 05/08/21 [facility] OBSOLETEon 05-01-2021 OBSOLETE Refill (GYNMN) ---- ZAKIYA CUELLO ([id number]) 1975 F Date Time Provider Department 05/01/21 [...] Please call and advise the patient at [phone] Thank you Zehra Jiang E- [id number] [place] [address] [address] [facility] [phone] [address] Zehra Rivera RN 05/02/2021 3:33 PM Signed [...] Encounter Status:Closed by NUNO RIVERA on 05/02/21 [facility] CNOVon 04-22-2021 CNOV Office Visit (DERMMN) ---- ZAKIYA CUELLO ([id number]) 1975 F Date Time Provider Department 04/22/21 [...] Past Histories independently gathered by the clinical practice support specialist and the remaining scribed note accurately describes [...] effluvium [L65.0] Order(s):ZINC BLD [SQZINC] Order #: [id number] FUTURE IRON + TIBC [SQIRON] Order #: [id number] FUTURE FERRITIN BLD [SQFERR] Order #: [id number] FUTURE VITAMIN D 25 HYDROXY [SQVITD] Order #: [id number] FUTURE Prescriptions as of 04/22/2021 Sig: (more content not included)... Normal [facility] Ferritinon 04-22-2021 Ferritin [Mass/Vol] 44.4 ng/mL Normal 14.7-205.1 [facility] Comment on above: Performed By: #### F ERR, ZINC, IRON, VITD ####[address] [phone] Iron and TIBCon 04-22-2021 Iron [Mass/Vol] 79 ug/dL Normal 41-186 [facility] Comment on above: Performed By: #### F ERR, ZINC, IRON, VITD ####[address] [phone] TIBC 382 ug/dL Normal 232-386 [facility] Comment on above: Performed By: #### F ERR, ZINC, IRON, VITD ####[address] [phone] Transferrin Saturatn 21 % Normal 15-57 [facility] Comment on above: Performed By: #### F ERR, ZINC, IRON, VITD ####[address] [phone] Vitamin D 25 Hydroxyon 04-22 Vitamin D 25 Hydroxy 32.7 ng/mL Normal 31.0-80.0 [facility] Comment on above: Result Comment: Clas sification of 25 [place] Vitamin D status: Insufficiency/Moderate Deficiency: < or = 30 ng/mL Sufficiency/Optimal Levels: 31 to 80 ng/mL Toxicity: > 100 ng/mL Test performed by chemiluminescent immunoassay. Performed By: #### F ERR, ZINC, IRON, VITD ####[facility] [place], [place] [phone] Zincon 04-22-2021 Zinc 79 ug/dL Normal 55-150 [facility] Comment on above: Result Comment: This test was developed and its performance characteristics determined by [facility] [place] ( [facility]). It has not been cleared or approved by the FDA. [facility] is regulated under CLIA as qualified to perform high complexity testing. This test is used for clinical purposes. It should not be regarded as investigational or for research. Performed By: #### F ERR, ZINC, IRON, VITD ####[facility] [address] [place], [place] [phone] Vital Signs Date Time Vital Sign Value Performing Clinician Faci lity 03-31-2023 10:35-0400 Body height 160.02 cm MD Eugenio Obrien Work Phone: [facility] 03-31-2023 10:35-0400 Body temperature 98 [degF] MD Eugenio Obrien Work Phone: [facility] 03-31-2023 10:35-0400 Body weight 77.7 kg MD Eugenio Obrien Work Phone: [facility] 03-31-2023 10:35-0400 Diastolic blood pressure 91 mm[Hg] MD Eugenio Obrien Work Phone: [facility] 03-31-2023 10:35-0400 Heart rate 73 /min MD Eugenio Obrien Work Phone: [facility] 03-31-2023 10:35-0400 Respiratory rate 16 /min MD Eugenio Obrien Work Phone: [facility] 03-31-2023 10:35-0400 SaO2% (BldA) [Mass fraction] 98 % MD Eugenio Obrien Work Phone: [facility] 03-31-2023 10:35-0400 Systolic blood pressure 151 mm[Hg] MD Eugenio Obrien Work Phone: [facility] 09-05-2022 18:50-0400 Diastolic blood pressure 88 mm[Hg] MD Eugenio Obrien Work Phone: [facility] 09-05-2022 18:50-0400 Heart rate 86 /min MD Eugenio Obrien Work Phone: [facility] 09-05-2022 18:50-0400 Respiratory rate 18 /min MD Eugenio Obrien Work Phone: [facility] 09-05-2022 18:50-0400 SaO2% (BldA) [Mass fraction] 99 % MD Eugenio Obrien Work Phone: [facility] 09-05-2022 18:50-0400 Systolic blood pressure 142 mm[Hg] MD Eugenio Obrien Work Phone: [facility] 09-05-2022 17:05-0400 Body height 166.37 cm MD Eugenio Obrien Work Phone: [facility] 09-05-2022 17:05-0400 Body temperature 98.1 [degF] MD Eugenio Obrien Work Phone: [facility] 09-05-2022 17:05-0400 Body weight 76 kg MD Eugenio Obrien Work Phone: [facility] Encounters Encounter Date Encounter Type Care Provider Facility Start: 02-07-2024 End: 02-08-2024 ambulatory Ramon Rivas MD Facility: [facility] Start: 12-27-2023 End: 12-28-2023 ambulatory Ramon Rivas MD Facility:[facility] Start: 11-01-2023 End: 11-02-2023 ambulatory Ramon Rivas MD Facility:[facility] Start: 10-04-2023 End: 10-05-2023 ambulatory Ramon Rivas MD Facility:[facility] Start: 07-21-2023 End: 07-21-2023 ambulatory Eugenio Obrien Facility:[facility] Start: 07-21-2023 End: 07-21-2023 ambulatory MD Eugenio Obrien Work Phone: [facility] Work Phone: Start: 07-21-2023 End: 07-21-2023 Patient encounter procedure MD Eguenio Obrien Work Phone: [facility] [place] Work Phone: Start: 06-02-2023 End: 06-02-2023 ambulatory [facility] Start: 04-30-2023 ambulatory ANDRIUS MERI Faci lity:[facility] Start: 04-30-2023 End: 05-01-2023 ambulatory Ramon Rivas MD Facility:[facility] Start: 03-31-2023 End: 03-31-2023 Emergency department patient visit Eugenio Obrien Facility:[facility] Start: 03-31-2023 End: 03-31-2023 Emergency department patient visit MD Eugenio Obrien Work Phone: [facility] Work Phone: Start: 03-25-2023 End: 03-25-2023 ambulatory MARYBEL SWANSON . Facility:[facility] Start: 12-18-2022 Telephone encounter Lake Dailey DO Work Phone: Ophthalmology Comment on above: Orders Start: 12-07-2022 End: 12-08-2022 ambulatory DR EUGENIO OBRIEN . Facility:[facility] Start: 11-09-2022 Refill Fatoumata Wild MD Work Phone: Gynecology Comment on above: Refill Request Start: 11-06-2022 End: 11-06-2022 ambulatory Eugenio Obrien Facility:[facility] Start: 10-27-2022 End: 10-28-[address] EUGENIO OBRIEN . Facility:[facility] Start: 09-22-2022 End: 09-22-2022 ambulatory АЛЕКСАНДР GÓMZE Facility:[facility] Start: 09-09-2022 End: 09-10-[address] EUGENIO OBRIEN . Facility:[facility] Start: 09-05-2022 End: 09-05-2022 Emergency department patient visit Eugenio Obrien Facility:[facility] Start: 09-05-2022 End: 09-05-2022 Emergency department patient visit MD Eugenio Obrien Work Phone: [facility] Start: 09-02-2022 End: 09-03-[address] [...] Author Start: 07-10-2025 LIPID SCREEN LIPID SCREEN [facility] Start: 07-21-2023 Dehydroepiandrosterone sulfate level [facility] Start: 07-21-2023 [facility] Start: 07-10-2023 DIABETES SCREEN DIABETES SCREEN [facility] Start: 11-29-2022 DEPRESSION ASSESSMENT DEPRESSION ASSESSMENT [facility] Start: 07-30-2022 Influenza vaccination INFLUENZA (#1) [facility] Start: 11-29-2021 DEPRESSION ASSESSMENT DEPRESSION ASSESSMENT [facility] Start: 08-07-2021 COVID-19 VACCINE (3 - Booster for Moderna series) COVID-19 VACCINE (3 - Booster for Moderna series) [facility] Start: 2018 COLOGUARD (FIT-DNA) COLOGUARD (FIT-DNA) [facility] Start: 2018 Colonoscopy COLONOSCOPY [facility] Start: 2018 COLORECTAL CANCER SCREENING COLORECTAL CANCER SCREENING [facility] Start: [address] COLONOGRAPHY [facility] Start: 2018 FECAL OCCULT BLOOD FECAL OCCULT BLOOD [facility] Start: 2018 SIGMOIDOSCOPY SIGMOIDOSCOPY [facility] Start: 2013 Mammography MAMMOGRAM [facility] Start: 1992 Urine microalbumin profile DTAP,TDAP,TD (1 - Tdap) [facility] Start: 1991 HEPATITIS C SCREENING HEPATITIS C SCREENING [facility] Start: 1991 HIV SCREENING HIV SCREENING [facility] Start: 1973 HEPATITIS B (1 of 3 - 3-dose series) HEPATITIS B (1 of 3 - 3-dose series) [facility] Patient Education [facility] Work Phone: Patient referral [facility] Work Phone: Testosterone Free [M ass/volume] in Serum or Plasma [facility] Payers Date Payer Category Payer Unknown 2022 Self-pay [id number] 2019 Medicaid [place] [facility] [place] [id number] 2019-Present [phone] [address] [address] [place] [address] Medicaid [id number] 1973 Unknown [id number] 2.16.840.1.530711.3.579.2.593 1973 Unknown [id number] 2.16.840.1.611621.3.579.2.593 1973 Unknown [id number] 2.16.840.1.632950.3.579.2.593 1973 Unknown [id number] 2.16.840.1.426171.3.579.2.593 1973 Unknown [id number] 2.16.840.1.354197.3.579.2.593 1973 Unknown [id number] 2.16.840.1.667780.3.579.2.593 1973 Unknown [id number] 2.16.840.1.827354.3.579.2.593 1973 Unknown [id number] 2.16.840.1.697151.3.579.2.593 1973 Unknown [id number] 2.16.840.1.994217.3.579.2.593 1973 Unknown [id number] 2.16.840.1.970298.3.579.2.593 1973 Unknown [id number] 2.16.840.1.621662.3.579.2.593 1973 Unknown [id number] 2.16.840.1.384599.3.579.2.196 1973 Unknown [id number] 2.16.840.1.341147.3.579.2.196 1973 Unknown [id number] 2.16.840.1.900839.3.579.2.196 1973 Unknown [id number] 2.16.840.1.958799.3.579.2.196 1973 Unknown [id number] 2.16.840.1.944919.3.579.2.196 1959 Medicaid [id number] 1961 Self-pay [id number] Unknown [place] [id number] Unknown [id number] 2.16.840.1.098396.3.579.2.531 Unknown [id number] 2.16.840.1.550135.3.579.2.531 Unknown [id number] 2.16.840.1.559640.3.579.2.531 Unknown [id number] 2.16.840.1.453864.3.579.2.531 Social History Date Type Detail Facility Start: 09-05-2022 End: 03-31-2023 Tobacco smoking status NHIS Never smoked tobacco (finding) [facility] Start: 1975 Sex Assigned At Female F [facility] Start: 06-10-2015 Tobacco use and exposure Smokeless tobacco non-user [facility] Start: 01-08-2022 Alcohol intake Current drinke r of alcohol (finding) [facility] Start: 10-25-2015 Alcohol Comment social [facility] Start: 1975 Sex Assigned At Not on file C [facility] Medical Equipment Procedure Code Equipment Code Equipment Origin al Text Equipment Identifier Dates Sling Pubvagnl [facility] - [id number] Start: 07-01-2015 Clinical Notes 04-22-2021 to 06-02-2023 Telephone Encounter - Casie Trejo - 12/24/2022 10:47 AM ESTTelephone Encounter - Mckenzie lEam - 12/18/2022 3:39 PM ESTTelephone Encounter - [...] in a finger splint and referred to [facility] Ortho for further evaluation and treatment. In [...] Past Medical History: Diagnosis Date Diabetes mellitus ([facility]) Objective General: Body mass index is 28.52 kg/m???. There were no vitals filed for this visit. No acute distress, comfortable Respiratory: Unlabored breathing with normal rate, no cough Cardiovascular: Warm well perfused extremities Psych: Appropriate mood behavior Left Hand: Inspection- no ecchymosis, no edema, no effusion Tender to palpation over dorsal aspect left index finger DIP joint Strength: vendor representatives deferred 2/2 pain, thumb 5/5, interossei 5/5 [...] Patel MD Orthopedic Surgery Resident Physician Pager: [phone] 06/02/23 11:35 AM By using the attestations [...] be an additional personal documentation from me. [facility] 12-24-2022 Miscellaneous Notes Images from the original note were not included. Contacted the patient and left a message the prescription has been updated. Also faxed the prescription to [facility] [employer] as requested. Lake Ro, OD You 18 hours ago (4:03 PM) The patient's glasses prescription has been finalized and should be available on My Chart. You Lake Ro, BILLY 3 days ago CLAIRE Mckenna, is there any way you can release the manifest for the patient for their appointment with you 10/2021? Lake Dailey, DO Mckenzie Robles [facility] 4 days ago The patient was not refracted by us because she already has an gas analyst (Dr Lake Ro) who takes care of her glasses. She should contact his office. Kassy Cifuentes calling for pts glasses prescription. Please fax to [phone]. Thank you! documented in this encounter [facility] 11-11-2022 Miscellaneous Notes Noted, thanks Phoned [...] Troy Lubin RN documented in this encounter [facility] 01-08-2022 Note HNO ID: [id number] Author: Lake Dailey DO Service: ? Author [...] Dailey DO January 08, 2022 9:22 AM [facility] 12-09-2021 Note HNO ID: [id number] Author: RT Kim(R) Service: Radiology Author Type: [...] Kurtz, RT(R) December 09, 2021 3:17 PM [facility] 12-09-2021 Note HNO ID: [id number] Author: Neeta Amador MD Service: ? Author [...] (human papilloma virus) infection - Hyperlipidemia 09/2015 [id number] - Migraine - Neuropathy Diagnosis made by [...] Lysis of adhesions.Monarc transobturator midurethral sling, ref [id number], lot [id number]. 4. Posterior repair. - REMOVAL ADENOIDS,PRIMARY,<12 Y/O [...] 500 mg t (more content not included)... [facility] 10-30-2021 Note HNO ID: [id number] Author: Lake Ro OD Service: ? Author Type: CIRCULAR CLERK Type: Progress Notes Filed: 10/30/2021 9:59 AM [...] with all of its relevant components. Lake Ro OD October 30, 2021 9:56 AM [facility] 10-20-2021 Note HNO ID: [id number] Author: Lake Ro, BILLY Service: ? Author Type: CIRCULAR CLERK Type: Progress Notes Filed: 10/20/2021 9:06 AM [...] Return to clinic Pride visual field 24-2, VATA Lake Ro, OD I have confirmed and [...] Ro, OD October 20, 2021 9:04 AM [facility] 08-15-2021 Note HNO ID: [id number] Author: Fatoumata Wild MD Service: ? Author Type: Physician Type: Progress Notes Filed: 08/14/2021 10:37 PM Note Text: I spent a total of 40+ minutes on the date of the service which included preparing to see the patient, [id number] patient care, completing clinical documentation, obtaining and/or reviewing separately obtained history, performing a medically appropriate examination, counseling and educating the patient/family/caregiver, ordering medications, tests, or procedures and independently interpreting results (not separately reported). [facility] 08-14-2021 Note HNO ID: [id number] Author: Fatoumata Wild MD Service: ? Author [...] (human papilloma virus) infection - Hyperlipidemia 09/2015 [id number] - Migraine - Neuropathy Diagnosis made by [...] Lysis of adhesions.Monarc transobturator midurethral sling, ref [id number], lot [id number]. 4. Posterior repair. 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 Visit naval science teacher present: Berna Sethi MA GEN: Pleasant, cooperative, NAD SKIN: Color, texture, turgor nl. Warm, dry. ENDO: No obvious hirsutism signs. EYES: Conjunctivae clear. No discoloration. NECK: No mass LUNGS: Breathing comfortably without distress, CTAB HEART: RRR, no r/g ABDOMEN: Soft. NTND. No masses. PELVIC: external genitalia normal, normal Bartholin's glands, urethra, Weidman's glands, no vulvar lesions, good vaginal support, [...] 4-8 o'clock-severe, a (more content not included)... [facility] 04-22-2021 Note HNO ID: [id number] Author: Franklin Prather MD Service: ? Author [...] Past Histories independently gathered by the clinical practice support specialist and the remaining scribed note accurately describes [...] infection last year hair Franklin Prather MD [facility] Evaluation note No assessment inform ation available [facility] Work Phone: Hospital Discharge instructions Additional Instructions Follow-up with your primary care doctor Return to ED if develop worsening symptoms or concerns [facility] Work Phone: Summary Purpose Family History No [...] section and content) DATE CREATED AUTHOR 01/16/2022 [facility] DATE CREATED AUTHOR AUTHOR'S ORGANIZ ATION 04/09/2023 [facility] DATE CREATED AUTHOR AUTHOR'S ORGANIZ ATION 06/09/2023 [facility] DATE CREATED AUTHOR AUTHOR'S ORGANIZ ATION 07/30/2023 [facility] DATE CREATED AUTHOR AUTHOR'S ORGANIZ ATION 02/15/2024 [facility] Care Teams (unrecognized sec tion and content) Team Status: Active Member Role Status Dates Eugenio Obrien MD Primary Care Provider Active Team Status: Inactive Member Role Status Dates Eugenio Obrien MD Primary Care Provider Active Poli Vázquez APRN Emergency Provider Active Team Status: Inactive Member Role Status Dates Eugenio Obrien MD Primary Care Provider Active Brendan Mitchell DO Emergency Provider Active Special Order Jeweler Relationship Specialty Start Date End Date Eugenoi Obrien MD [address] [place] [address] PCP - General Family Medicine 07/05/20 Team [...] or prosecute any alcohol or drug abuse patient.[facility] the event this information is protected by the Federal Confidentiality of Alcohol and Drug Abuse Patient Records regulations: The Federal rules restrict any use of the information to criminally investigate or prosecute any alcohol or drug abuse patient.[facility] Reason for Visit (unrecogniz ed section [...] BE BASED ON THE PRIMARY CLINICAL RECORDS. [facility]. provides no warranty or guarantee of the accuracy or completeness of information in this document.
== END 2024-02-26 08:26 | disposition home or self-care (01) ==
LOC: CT 08:25
PROVIDERS: PCP Family Medicine; Visit Provider Nurse Practitioner
DX: M47.816 Spondylosis without myelopathy or radiculopathy, lumbar region (principal); M54.50 Low back pain, unspecified
CPT/HCPCS: 72131

== ENCOUNTER 2024-08-20 11:42 | Emergency (ER) | payer SELFPAY ==
[2024-08-20 11:47] VITALS: BP 135/89; PULSE 90; TEMP 36.8; O2SAT 97; BMI 29.6
--- OUTSIDE RECORDS SUMMARY | 2024-08-20 11:48 | XMS_ITS | CCD ---
Author Organization [facility] Informat ion Partnership [facility] Care Team Providers Care Webmethods Architect Name Role Phone MD Eugenio Obrien Primary Care Provider DO Brendan Mitchell Emergency Provider [phone] Eugenio Obrien MD Primary Care Provider [phone] MD Eugenio Obrien Primary Care Provider [phone] RAMAN Vázquez Emergency Provider SKY ., MARYBEL Attending Unavailable SKY ., MARYBEL Admitting Unavailable SKY ., MARYBEL Consulting Unavailable LACYY ., DR BECKER Primary [...] DR BECKER Admitting Unavailable HOY ., DR BECKRE Primary Care Unavailable HOY ., DR BECKER Attending Unavailable HOY ., DR BECKER Primary Care Unavailable HOY ., DR BECKRE Consulting Unavailable HOY ., DR BECKER Admitting [...] GÓMEZ Attending Unavailable АЛЕКСАНДР GÓMEZ Admitting Unavailable HOY ., DR BECKER Primary Care Unavailable АЛЕКСАНДР GÓMEZ Consulting Unavailable SWETA GAMEZ Attending Unavailable MD Eugenio Obiren Primary Care Provider [phone] MD Shayy Lozada Attending Provider [phone] Eugenio Obrien Primary Care Unavailable Kathie, Opli Admitting Unavailable Matti Vázquezothy Attending Unavailable Eugenio Obrien Primary Care Unavailable Shayy Lozada Admitting Unavailable Shayy Lozada Attending Unavailable Eugenio Obrine Primary Care Unavailable [place] Admitting Unavailable [place] Attending Unavailable Eugenio Obrien M Primary Care Unavailable Brendan Mitchell Admitting Unavailable Brendan Mitchell Attending Unavailable Gikaileeitis , Andrius Raegan Attending Unavailable Giedraitis , Andrius Vytautgabby Attending Unavailable Gikaileeitis , Andrius Vytautas Attending Unavailable Giedraitis , Andrius Vytautas Attending Unavailable Giedraitis , Andrius Vaxelautgabby Attending Unavailable Allergies Allergy Classification Reported Allergen(s) Allergy Type Date of Onset Reaction(s) Facility (7 sources) Clarithromycin; Translations: [CLARITHROMYCIN] Drug Allergy 4 [facility] (7 sources) lamoTRIgine; Translations: [LAMOTRIGINE] Drug Allergy 4 [facility] (7 sources) Sulfonamides (Antibiotic); Translations: [SULFA (SULFONAMIDE ANTIBIOTICS)] Allergy to substance 4 [facility] (3 sources) Penicillins; Translations: [PENICILLINS] Propensity to adverse reactions to drug 4 Unknown [facility] (1 source) Clarithromycin Drug Allergy 3 [facility] (2 sources) diphenhydrAMINE Drug Allergy 5 [facility] (1 source) lamoTRIgine Drug Allergy 4 [facility] (2 sources) Penicillins Drug allergy (disorder) 3 [facility] (2 sources) Sulfonamides (Antibiotic) Drug allergy (disorder) 3 [facility] (1 source) Bee pollen; Translations: [BEE POLLEN] Propensity to adverse reactions to drug (disorder) 3 [facility] (1 source) diphenhydrAMINE; Translations: [DIPHENHYDRAMINE HCL] Drug Allergy 3 [facility] Repository Medications Current Medications Medication [...] Comment on above: INHALE 2 PUFFS BY [facility] TWICE DAILY *RINSE AFTER USE* cloNIDine hydrochloride [...] on above: TAKE 1 CAPSULE BY [facility] EVERY EVENING WITH FOOD. NEEDS FOOD FOR [...] 06-02-2023 Episodic Other aftercare (1 source) Other group home (current) drug therapy; Translations: [OTH DRAWER IN DOBBY LOOM CURRENT DRUG THERAPY] Onset: 03-29-2023 Episodic Other [...] Antinuclear Abs, IFA Positive Critically abnormal . [facility] Comment on above: Result Comment: Nega tive <1:80 Borderline 1:80 Positive >1:80 Performed By: #### L IPASE, CBC, CMP #### [facility] [address] Homogeneous Pattern 1:80 Normal . [facility] Comment on above: Result Comment: ICAP nomenclature: [id number] Performed By: #### L IPASE, CBC, CMP #### [facility] [address] Note [address] Normal [address] [facility] [...] titers Nucleosomes, Histones Drug-induced SLE Speckled Sm, HEEL STAINER, SCL-70, SLE,MCTD,PSS (diffuse form), SS-A/SS-B Sjogrens Nucleolar SCL-70, PM-1/SCL High titers Scleroderma, PM/DM Centromere Centromere PSS (limited form) w/Crest syndrome variable Nuclear Dot [id number] Primary Biliary Cirrhosis Nuclear GP210, Primary Biliary Cirrhosis Membrane joleen A,B,C Performed at: - [facility] [id number] [employer]: Eric Vasquez PhD, Phone: [phone] PERFORMED BY: [place] [address] PATHOLOGIST HVAC ENGINEERING TECHNICIAN HELENA BEVERLY M.D. Performed By: #### L IPASE, CBC, CMP #### [place] [address] [place] Alanine aminotransferase [En zymatic activity/volume] in Serum or PlasmaOrdered By: Shayy Lozada on 07-21-2023 ALT [Catalytic activity/Vol] 23 U/L 7-[address] [facility] Albumin [Mass/volume] in Ser um or Plasma by Bromocresol green (BCG) dye binding methoOrdered By: Shayy Lozada on 07-21-2023 Albumin BCG dye [Mass/Vol] 4.3 g/dL 3.5-5.[address] [facility] Alkaline phosphatase [Enzyma tic activity/volume] in Serum or PlasmaOrdered By: Shayy Lozada on 07-21-2023 ALP [Catalytic activity/Vol] 57 U/L 34-[address] [facility] Aspartate aminotransferase [ Enzymatic activity/volume] in Serum or PlasmaOrdered By: Shayy Lozada on 07-21-2023 AST [Catalytic activity/Vol] 17 U/L 13-[address] [facility] Basophils Auto (Bld) [#/Vol] Ordered By: Shayy Lozada on 07-21-2023 Basophils (Bld) [#/Vol] 0.1 10*3/uL 0.0-0.[address] [facility] Basophils/100 WBC Auto (Bld) Ordered By: Shayy Lozada on 07-21-2023 Basophils/100 WBC (Bld) 1.2 % . [facility] Bilirubin.total [Mass/volume ] in Serum or PlasmaOrdered By: Shayy Lozada on 07-21-2023 Bilirubin [Mass/Vol] 0.5 mg/dL 0.3-1.0 [facility] Calcium [Mass/volume] in Ser um or PlasmaOrdered By: Shayy Lozada on 07-21-2023 Calcium [Mass/Vol] 9.4 mg/dL 8.6-10.3 [facility] Carbon dioxide, total [Moles /volume] in Serum or PlasmaOrdered By: Shayy Lozada on 07-21-2023 CO2 [Moles/Vol] 29.8 mmol/L 21.0-31.[address] [facility] Chloride [Moles/volume] in [place] or PlasmaOrdered By: Shayy Lozada on 07-21-2023 Chloride [Moles/Vol] 108 mmol/L 98-107 [facility] Complete Blood Count Auto Di ffon 07-21-2023 Basophils (Bld) [#/Vol] 0.1 10*3/uL Normal 0.0-0.[address] [facility] Comment on above: Performed By: #### L IPASE, CBC, CMP #### [address] Basophils/100 WBC (Bld) 1.2 % Normal . [facility] Comment on above: Performed By: #### L IPASE, CBC, CMP #### [address] Eosinophils (Bld) [#/Vol] 0.0 10*3/uL Normal 0.0-0.[address] [facility] Comment on above: Performed By: #### L IPASE, CBC, CMP #### [address] Eosinophils/100 WBC (Bld) 0.1 % Normal . [facility] Comment on above: Performed By: #### L IPASE, CBC, CMP #### [address] Erythrocyte distribution width (RBC) [Ratio] 13.2 % Normal 11.9-15.[address] [facility] Comment on above: Performed By: #### L IPASE, CBC, CMP #### [address] Hematocrit (Bld) [Volume fraction] 36.6 % Normal 34.0-46.[address] [facility] Comment on above: Performed By: #### L IPASE, CBC, CMP #### [address] Hemoglobin (Bld) [Mass/Vol] 12.5 g/dL Normal 11.8-15.[address] [facility] Comment on above: Performed By: #### L IPASE, CBC, CMP #### [address] Lymphocytes (Bld) [#/Vol] 1.8 10*3/uL Normal 1.00-4.[address] [facility] Comment on above: Performed By: #### L IPASE, CBC, CMP #### [facility] [address] Lymphocytes/100 WBC (Bld) 37.2 % Normal . [facility] Comment on above: Performed By: #### L IPASE, CBC, CMP #### [facility] [address] [place] [address] [place] MCH (RBC) [Entitic mass] 29.7 pg Normal 24.7-34.[address] [facility] Comment on above: Performed By: #### L IPASE, CBC, CMP #### [facility] [address] MCV (RBC) [Entitic vol] 86.7 fL Normal 80-100 [facility] Comment on above: Performed By: #### L IPASE, CBC, CMP #### [address] Mean Corpuscular HGB Conc 34.2 g/dL Normal 32.0-35.[address] [facility] Comment on above: Performed By: #### L IPASE, CBC, CMP #### [place] [address] [place] Monocytes (Bld) [#/Vol] 0.4 10*3/uL Normal 0.0-0.[address] [facility] Comment on above: Performed By: #### L IPASE, CBC, CMP #### [place] [address] [place] Monocytes/100 WBC (Bld) 8.9 % Normal . [facility] Comment on above: Performed By: #### L IPASE, CBC, CMP #### [place] [address] [place] Neutrophils (Bld) [#/Vol] 2.5 10*3/uL Normal 1.8-7.[address] [facility] Comment on above: Performed By: #### L IPASE, CBC, CMP #### [place] [address] [place] Neutrophils/100 WBC (Bld) 52.6 % Normal . [facility] Comment on above: Performed By: #### L IPASE, CBC, CMP #### [address] NRBC% 0.0 /100{WBC} Normal 0-0.[address] [facility] Comment on above: Performed By: #### L IPASE, CBC, CMP #### [address] Platelet mean volume (Bld) [Entitic vol] 7.5 fL Normal 6.3-10.[address] [facility] Comment on above: Performed By: #### L IPASE, CBC, CMP #### [address] Platelets (Bld) [#/Vol] 259 10*3/uL Normal 150-[address] [facility] Comment on above: Performed By: #### L IPASE, CBC, CMP #### [address] RBC (Bld) [#/Vol] 4.22 10*6/uL Normal 3.60-5.00 [facility] Comment on above: Performed By: #### L IPASE, CBC, CMP #### [address] WBC (Bld) [#/Vol] 4.8 10*3/uL Normal 3.8-11.6 [facility] Comment on above: Performed By: #### L IPASE, CBC, CMP #### [address] Comprehensive Metabolic Pane sonny 07-21-2023 Albumin [Mass/Vol] 4.3 g/dL Normal 3.5-5.7 [facility] Comment on above: Performed By: #### C MP, CBC, T4F, ESR, TSH3 #### [address] #### TESTF, DHEAS, ZAID #### [facility] , Albumin/Globulin [Mass ratio] 1.9 {ratio} Normal [facility] Comment on above: Performed By: #### C MP, CBC, T4F, ESR, TSH3 #### [facility] [address] [place] [address] #### TESTF, DHEAS, ZAID #### [facility] , ALP [Catalytic activity/Vol] 57 U/L Normal 34-[address] [facility] Comment on above: Performed By: #### C MP, CBC, T4F, ESR, TSH3 #### [facility] [address] [place] [address] [place] #### TESTF, DHEAS, ZAID #### [facility] , ALT [Catalytic activity/Vol] 23 U/L Normal 7-[address] [facility] Comment on above: Performed By: #### C MP, CBC, T4F, ESR, TSH3 #### [address] #### TESTF, DHEAS, ZAID #### [facility] , Anion gap [Moles/Vol] 9.6 mmol/L Normal 6.0-15.0 [facility] Comment on above: Performed By: #### C MP, CBC, T4F, ESR, TSH3 #### [facility] [address] [place] [address] [place] #### TESTF, DHEAS, ZAID #### [facility] , AST [Catalytic activity/Vol] 17 U/L Normal 13-[address] [facility] Comment on above: Performed By: #### C MP, CBC, T4F, ESR, TSH3 #### [place] [address] [place] #### TESTF, DHEAS, ZAID #### [facility] , Bilirubin [Mass/Vol] 0.5 mg/dL Normal 0.3-1.0 [facility] Comment on above: Performed By: #### C MP, CBC, T4F, ESR, TSH3 #### [place] [address] [place] #### TESTF, DHEAS, ZAID #### [facility] , Calcium [Mass/Vol] 9.4 mg/dL Normal 8.6-10.3 [facility] Comment on above: Performed By: #### C MP, CBC, T4F, ESR, TSH3 #### [facility] [address] [place] [address] #### TESTF, DHEAS, ZAID #### [facility] , Chloride [Moles/Vol] 108 mmol/L High 98-107 [facility] Comment on above: Performed By: #### C MP, CBC, T4F, ESR, TSH3 #### [facility] [address] [place] [address] #### TESTF, DHEAS, ZAID #### [facility] , CO2 [Moles/Vol] 29.8 mmol/L Normal 21.0-31.[address] [facility] Comment on above: Performed By: #### C MP, CBC, T4F, ESR, TSH3 #### [facility] [address] [place] [address] #### TESTF, DHEAS, ZAID #### [facility] , Creatinine [Mass/Vol] 0.76 mg/dL Normal 0.60-1.20 [facility] Comment on above: Performed By: #### C MP, CBC, T4F, ESR, TSH3 #### [facility] [address] [place] [address] [place] #### TESTF, DHEAS, ZAID #### [facility] , GFR/1.73 sq M.predicted MDRD (S/P/Bld) [Vol rate/Area] mL/min/{1.73_m2} Normal [facility] Comment on above: Performed By: #### C MP, CBC, T4F, ESR, TSH3 #### [facility] [address] [place] [address] [place] #### TESTF, DHEAS, ZAID #### [facility] , Globulin (S) [Mass/Vol] 2.3 g/dL Normal [facility] Comment on above: Performed By: #### C MP, CBC, T4F, ESR, TSH3 #### [address] #### TESTF, DHEAS, ZAID #### [facility] , Glucose [Mass/Vol] 101 mg/dL High 70-100 [facility] Comment on above: Result Comment: [facility] Glucose Reference Range is dependent on time and content of last meal. Glucose of more than 200 mg/dL in a nonstressed, ambulatory subject supports the diagnosis of Diabetes Mellitus. ADA recommended reference range Performed By: #### C MP, CBC, T4F, ESR, TSH3 #### [address] #### TESTF, DHEAS, ZAID #### [facility] , Potassium [Moles/Vol] 4.4 mmol/L Normal 3.5-5.1 [facility] Comment on above: Performed By: #### C MP, CBC, T4F, ESR, TSH3 #### [place] [address] [place] #### TESTF, DHEAS, ZAID #### [facility] , Protein [Mass/Vol] 6.6 g/dL Normal 6.4-8.9 [facility] Comment on above: Performed By: #### C MP, CBC, T4F, ESR, TSH3 #### [place] [address] [place] #### TESTF, DHEAS, ZAID #### [facility] , Sodium [Moles/Vol] 143 mmol/L Normal 136-145 [facility] Comment on above: Performed By: #### C MP, CBC, T4F, ESR, TSH3 #### [place] [address] [place] #### TESTF, DHEAS, ZAID #### [facility] , Urea nitrogen [Mass/Vol] 12 mg/dL Normal 7-[address] [facility] Comment on above: Performed By: #### C MP, CBC, T4F, ESR, TSH3 #### [facility] [address] #### TESTF, DHEAS, ZAID #### [facility] , Creatinine [Mass/volume] in Serum or PlasmaOrdered By: Shayy Lozada on 07-21-2023 Creatinine [Mass/Vol] 0.76 mg/dL 0.60-1.20 [facility] Dehydroepiandrosterone Sulfa meeta 07-21-2023 Dehydroepiandrosterone Sulfate 135.0 ug/dL Normal 41.2-243.[address] [facility] Comment on above: Result Comment: Perf ormed at: - [facility] [address] [id number] [employer]: Eric Vasquez PhD, Phone: [phone] Performed By: #### L IPASE, CBC, CMP #### [address] Eosinophils Auto (Bld) [#/Vo l]Ordered By: Shayy Lozada on 07-21-2023 Eosinophils (Bld) [#/Vol] 0.0 10*3/uL 0.0-0.[address] [facility] Eosinophils/100 WBC Auto (Bl d)Ordered By: Shayy Lozada on 07-21-2023 Eosinophils/100 WBC (Bld) 0.1 % . [facility] Erythrocyte Sedimentation Ra meeta 07-21-2023 ESR (Bld) [Velocity] 13 mm/h Normal 0-19 [facility] Comment on above: Result Comment: PERF ORMED BY: [place] [address] PATHOLOGIST HVAC ENGINEERING TECHNICIAN HELENA BEVERLY M.D. Performed By: #### L IPASE, CBC, CMP #### [address] Erythrocyte distribution wid th Auto (RBC) [Ratio]Ordered By: Shayy Lozada on 07-21-2023 Erythrocyte distribution width (RBC) [Ratio] 13.2 % 11.9-15.[address] [facility] Erythrocyte sedimentation ra te by Photometric methodOrdered By: Shayy Lozada on 07-21-2023 ESR Photometric method (Bld) [Velocity] 13 mm/hr 0-[address] [facility] Free T4 (Free Thyroxine)on 0 07-21-2023 Free T4 [Mass/Vol] 0.81 ng/dL Normal 0.61-1.12 [facility] Comment on above: Performed By: #### C MP, CBC, T4F, ESR, TSH3 #### [facility] [address] [place] [address] #### TESTF, DHEAS, ZAID #### [facility] , Globulin Calc (S) [Mass/Vol] Ordered By: Shayy Lozada on 07-21-2023 Globulin (S) [Mass/Vol] 2.3 g/dL [facility] Glucose [Mass/volume] in Ser um or PlasmaOrdered By: Shayy Lozada on 07-21-2023 Glucose [Mass/Vol] 101 mg/dL 70-100 [facility] Comment on above: ADA recommended refe rence rangeRandom Glucose Reference Range is dependent on time and content of last meal. Glucose of more than 200 mg/dL in a nonstressed, ambulatory subject supports the diagnosis of Diabetes Mellitus. Hematocrit Auto (Bld) [Volum e fraction]Ordered By: Shayy Lozada on 07-21-2023 Hematocrit (Bld) [Volume fraction] 36.6 % 34.0-46.[address] [facility] Hemoglobin [Mass/volume] in BloodOrdered By: Shayy Lozada on 07-21-2023 Hemoglobin (Bld) [Mass/Vol] 12.5 g/dL 11.8-15.[address] [facility] Leukocytes [#/volume] correc ji for nucleated erythrocytes in Blood by Automated counOrdered By: Shayy Lozada on 07-21-2023 WBC corrected for nucl RBC Auto (Bld) [#/Vol] 4.8 10*3/uL 3.8-11.[address] [facility] Lymphocytes Auto (Bld) [#/Vo l]Ordered By: Shayy Lozada on 07-21-2023 Lymphocytes (Bld) [#/Vol] 1.8 10*3/uL 1.00-4.[address] [facility] Lymphocytes/100 WBC Auto (Bl d)Ordered By: Shayy Lozada on 07-21-2023 Lymphocytes/100 WBC (Bld) 37.2 % . [facility] MCH Auto (RBC) [Entitic mass ]Ordered By: Shayy Lozada on 07-21-2023 MCH (RBC) [Entitic mass] 29.7 pg 24.7-34.[address] [facility] MCHC Auto (RBC) [Mass/Vol]Or dered By: Shayy Lozada on 07-21-2023 MCHC (RBC) [Mass/Vol] 34.2 g/dL 32.0-35.0 [facility] MCV Auto (RBC) [Entitic vol] Ordered By: Shayy Lozada on 07-21-2023 MCV (RBC) [Entitic vol] 86.7 fL 80-100 [facility] Monocytes Auto (Bld) [#/Vol] Ordered By: Shayy Lozada on 07-21-2023 Monocytes (Bld) [#/Vol] 0.4 10*3/uL 0.0-0.[address] [facility] Monocytes/100 WBC Auto (Bld) Ordered By: Shayy Lozada on 07-21-2023 Monocytes/100 WBC (Bld) 8.9 % . [facility] Neutrophils Auto (Bld) [#/Vo l]Ordered By: Shayy Lozada on 07-21-2023 Neutrophils (Bld) [#/Vol] 2.5 10*3/uL 1.8-7.[address] [facility] Neutrophils/100 WBC Auto (Bl d)Ordered By: Shayy Lozada on 07-21-2023 Neutrophils/100 WBC (Bld) 52.6 % . [facility] No Panel InformationOrdered By: Shayy Lozada on 07-21-2023 Estimated GFR (CKD-EPI) > 60.0 mL/Min [facility] Creatinine Clearance (Chem N/A [facility] Nucleated erythrocytes [Pres ence] in Blood by Automated countOrdered By: Shayy Lozada on 07-21-2023 Nucleated RBC Auto Ql (Bld) 0.0 /100{WBC} 0-0.[address] [facility] Platelet mean volume Auto (B ld) [Entitic vol]Ordered By: Shayy Lozada on 07-21-2023 Platelet mean volume (Bld) [Entitic vol] 7.5 fL 6.3-10.[address] [facility] Platelets Auto (Bld) [#/Vol] Ordered By: Shayy Lozada on 07-21-2023 Platelets (Bld) [#/Vol] 259 10*3/uL 150-[address] [facility] Potassium [Moles/volume] in Serum or PlasmaOrdered By: Shayy Lozada on 07-21-2023 Potassium [Moles/Vol] 4.4 mmol/L 3.5-5.1 [facility] Protein [Mass/volume] in Ser um or PlasmaOrdered By: Shayy Lozada on 07-21-2023 Protein [Mass/Vol] 6.6 g/dL 6.4-8.9 [facility] RBC Auto (Bld) [#/Vol]Ordere d By: Shayy Lozada on 07-21-2023 RBC (Bld) [#/Vol] 4.22 10*6/uL 3.60-5.00 [facility] Serum or plasma albumin/glob ulin mass ratioOrdered By: Shayy Lozada on 07-21-2023 Albumin/Globulin [Mass ratio] 1.9 {ratio} [facility] Serum or plasma anion gap de terminationOrdered By: Shayy Lozada on 07-21-2023 Anion gap [Moles/Vol] 9.6 mmol/L 6.0-15.0 [facility] Sodium [Moles/volume] in Ser um or PlasmaOrdered By: Shayy Lozada on 07-21-2023 Sodium [Moles/Vol] 143 mmol/L 136-145 [facility] Testosterone,Freeon 07-21-20 Testosterone,Free 1.0 pg/mL Normal 0.0-4.2 [facility] Comment on above: Result Comment: Perf ormed at: BN - [facility] [address] [id number] [employer]: Elizabeth Quezada MD, Phone: [phone] Performed By: #### L IPASE, CBC, CMP #### [facility] [address] Thyroid Stimulating Hormoneo n 07-21-2023 TSH Qn 0.39 m[IU]/L Low 0.45-5.[address] [facility] Comment on above: Result Comment: PERF ORMED BY: [facility] [address] [place] [address] PATHOLOGIST HVAC ENGINEERING TECHNICIAN HELENA BEVERLY M.D. Performed By: #### C MP, CBC, T4F, ESR, TSH3 #### [facility] [address] #### TESTF, DHEAS, ZAID #### [facility] , Thyrotropin [Units/volume] i n Serum or PlasmaOrdered By: Shayy Lozada on 07-21-2023 TSH Qn 0.39 m[IU]/L 0.45-5.[address] [facility] Thyroxine (T4) free [Mass/vo lume] in Serum or PlasmaOrdered By: Shayy Lozada on 07-21-2023 Free T4 [Mass/Vol] 0.81 ng/dL 0.61-1.12 [facility] Urea nitrogen [Mass/volume] in Serum or PlasmaOrdered By: Shayy Lozada on 07-21-2023 Urea nitrogen [Mass/Vol] 12 mg/dL 06-[address] [facility] WBC Auto (Bld) [#/Vol]Ordere d By: Shayy Lozada on 07-21-2023 WBC (Bld) [#/Vol] 4.8 10*3/uL 3.8-11.6 [facility] Office Visiton 06-02-2023 Follow-up visit [id number] Zakiya Cuello 1975 F Date Provider Department Center 06/02/2023 VICKY JIMÉNEZ ORTHO MPORTHO Family History Problem Relation Age of Onset Diabetes Mother Diabetes Father Family Status - Relation Status Age at Mother Alive Father Alive Level of Service:15126 [place] OFFICE/OUTPATIENT NEW LOW MDM 30-44 MINUTES Reason for Visit and Comments: Pain [136] Normal [facility] Bilirubin Test strip Ql (U)O rdered By: Poli Vázquez on 03-31-2023 Bilirubin Ql (U) Negative Negative [facility] Color Auto (U)Ordered By: Frederick Vázquez on 03-31-2023 Color (U) Yellow Yellow [facility] Ketones Auto test strip (U) [Mass/Vol]Ordered By: Poli Vázquez on 03-31-2023 Ketones (U) [Mass/Vol] Negative Negative [facility] Nitrite Test strip Ql (U)Ord ered By: Poli Vázquez on 03-31-2023 Nitrite Ql (U) Negative Negative [facility] Protein Auto test strip (U) [Mass/Vol]Ordered By: Poli Vázquez on 03-31-2023 Protein (U) [Mass/Vol] Negative Negative [facility] Specific gravity Auto test s trip (U) [Rel density]Ordered By: Poli Vázquez on 03-31-2023 Specific gravity (U) [Rel density] 1.004 1.001-1.[address] [facility] Urinalysison 03-31-2023 Appearance (U) Clear Normal Clear [facility] Comment on above: Order Comment: Name Collection Type:: Clean-Voided Midstream Performed By: #### L IPASE, CBC, CMP #### [facility] [address] [place] [id number] [place] Bilirubin,Urine Negative Normal Negative [facility] Comment on above: Order Comment: Name Collection Type:: Clean-Voided Midstream Performed By: #### L IPASE, CBC, CMP #### [facility] [address] [place] [id number] [place] Color (U) Yellow Normal Yellow [facility] Comment on above: Order Comment: Name Collection Type:: Clean-Voided Midstream Performed By: #### L IPASE, CBC, CMP #### [facility] [address] [place] [id number] [place] Glucose Ql (U) Normal Normal Normal [facility] Comment on above: Order Comment: Name Collection Type:: Clean-Voided Midstream Performed By: #### L IPASE, CBC, CMP #### [address] Ketones Ql (U) Negative Normal Negative [facility] Comment on above: Order Comment: Name Collection Type:: Clean-Voided Midstream Performed By: #### L IPASE, CBC, CMP #### [address] Leukocyte esterase Test strip Ql (U) Negative Normal Negative [facility] Comment on above: Order Comment: Name Collection Type:: Clean-Voided Midstream Performed By: #### L IPASE, CBC, CMP #### [address] Nitrite,Urine Negative Normal Negative [facility] Comment on above: Order Comment: Name Collection Type:: Clean-Voided Midstream Performed By: #### L IPASE, CBC, CMP #### [address] Occult Blood,Urine Negative Normal Negative [facility] Comment on above: Order Comment: Name Collection Type:: Clean-Voided Midstream Result Comment: PERF ORMED BY: [place] [address] PATHOLOGIST HVAC ENGINEERING TECHNICIAN HELENA BEVERLY M.D. Performed By: #### L IPASE, CBC, CMP #### [facility] [address] [place] [address] [place] pH (U) 6.5 [pH] Normal 5.0-9.[address] [facility] Comment on above: Order Comment: Name Collection Type:: Clean-Voided Midstream Performed By: #### L IPASE, CBC, CMP #### [place] [address] [place] Protein,Urine Negative Normal Negative [facility] Comment on above: Order Comment: Name Collection Type:: Clean-Voided Midstream Performed By: #### L IPASE, CBC, CMP #### [address] [place] [address] [place] Specificy Romeo,Urine 1.004 Normal 1.001-1.[address] [facility] Comment on above: Order Comment: Name Collection Type:: Clean-Voided Midstream Performed By: #### L IPASE, CBC, CMP #### [facility] [address] Urobilinogen,Urine Normal Normal Normal [facility] Comment on above: Order Comment: Name Collection Type:: Clean-Voided Midstream Performed By: #### L IPASE, CBC, CMP #### [facility] [address] Urine clarity by refractomet ry automatedOrdered By: Poli Vázquez on 03-31-2023 Clarity Refractometry automated (U) Clear Clear [facility] Urine glucose measurement by automated test strip (mass/volume)Ordered By: Poli Vázquez on 03-31-2023 Glucose Auto test strip (U) [Mass/Vol] Normal mg/dL Normal [facility] Urine hemoglobin detection b y automated test stripOrdered By: Poli Vázquez on 03-31-2023 Hemoglobin Auto test strip Ql (U) Negative Negative [facility] Urine leukocyte esterase det ection by automated test stripOrdered By: Poli Vázquez on 03-31-2023 Leukocyte esterase Auto test strip Ql (U) Negative Negative [facility] Urobilinogen Auto test strip (U) [Mass/Vol]Ordered By: Poli Vázquez on 03-31-2023 Urobilinogen (U) [Mass/Vol] Normal mg/dL Normal [facility] pH Auto test strip (U)Ordere d By: Poli Vázquez on 03-31-2023 pH (U) 6.5 [pH] 5.0-9.[address] [facility] CT ABD/PELVIS WO CONon 03-25 [...] ADEN MASTERSON Date: 2023-03-25 14:39 Normal The [facility] ER URINE PROFILEon 3 Bilirubin Ql (U) Negative Normal NEGATIVE [facility] Comment on above: Performed By: #### E BVPROF #### [facility] [address] [place] [address] Dr. Nahomi Arana Clarity (U) CLEAR Normal CLEAR [facility] Comment on above: Performed By: #### E BVPROF #### [facility] [address] [place] [address] Dr. Nahomi Arana Color (U) LT. YELLOW Normal YELLOW [facility] Comment on above: Performed By: #### E BVPROF #### [facility] [address] [place] [address] Dr. Nahomi Arana ERUAHD A micrscopic examination will be performed if indicated. Normal [facility] Comment on above: Performed By: #### E BVPROF #### [facility] [address] [place] [address] Dr. Nahomi Arana Glucose Ql (U) Negative Normal NEGATIVE [facility] Comment on above: Performed By: #### E BVPROF #### [facility] [address] [place] [address] Dr. Nahomi Arana Hemoglobin Ql (U) TRACE-INTACT Abnormal NEGATIVE [facility] Comment on above: Performed By: #### E BVPROF #### [facility] [address] [place] [address] Dr. Nahomi Arana Ketones Ql (U) Negative Normal NEGATIVE [facility] Comment on above: Performed By: #### E BVPROF #### [facility] [address] [place] [address] Dr. Nahomi Arana LEUKOCYTES Negative Normal NEGATIVE [facility] Comment on above: Performed By: #### E BVPROF #### [facility] [address] [place] [address] Dr. Nahomi Arana Nitrite Ql (U) Negative Normal NEGATIVE [facility] Comment on above: Performed By: #### E BVPROF #### [facility] [address] [place] [address] Dr. Nahomi Arana pH (U) 5.0 [pH] Normal 5-9 [facility] Comment on above: Performed By: #### E BVPROF #### [facility] [address] [place] [address] Dr. Nahomi Arana SPEC GRAVITY 1.030 Abnormal 1.005-<=1.02 5 [facility] Comment on above: Performed By: #### E BVPROF #### [facility] [address] [place] [address] Dr. Nahomi Arana UA PROTEIN Negative Normal NEGATIVE/ TRACE [facility] Comment on above: Performed By: #### E BVPROF #### [facility] [address] [place] [address] Dr. Nahomi Arana UR MICRO IND INDICATED Normal [facility] Comment on above: Performed By: #### E BVPROF #### [facility] [address] [place] [address] Dr. Nahomi Arana Urobilinogen Qn (U) 0.2 {Jesus'U}/dL Normal 0.2 - 1. 0 [facility] Comment on above: Performed By: #### E BVPROF #### [facility] [address] [place] [address] Dr. Nahomi Arana URINE MICROSCOPIC ONLYon BACTERIA NONE SEEN Normal NONE SEEN [facility] Comment on above: Performed By: #### E BVPROF #### [facility] [address] [place] [address] Dr. Nahomi Arana Bacteria identified Cx Nom (U) NOT INDICATED Normal [facility] Comment on above: Performed By: #### E BVPROF #### [facility] [address] [place] [address] Dr. Nahomi Arana CAST NONE SEEN Normal NONE SEEN [facility] Comment on above: Performed By: #### E BVPROF #### [facility] [address] [place] [address] Dr. Nahomi Arana Crystals LM Nom (Urine sed) NONE SEEN Normal NONE SEEN [facility] Comment on above: Performed By: #### E BVPROF #### [facility] [address] [place] [address] Dr. Nahomi Arana Epithelial cells LM Ql (Urine sed) FEW Abnormal NONE SEEN /RARE [facility] Comment on above: Performed By: #### E BVPROF #### [facility] [address] [place] [address] Dr. Nahomi Arana MUCOUS NONE SEEN Normal NONE SEEN [facility] Comment on above: Performed By: #### E BVPROF #### [facility] [address] [place] [address] Dr. Nahomi Arana RBC 0-2 Normal 0-2 [facility] Comment on above: Performed By: #### E BVPROF #### [facility] [address] [place] [address] Dr. Nahomi Arana WBC NONE SEEN Normal NONE SEEN [facility] Comment on above: Performed By: #### E BVPROF #### [facility] [address] [address] [address] Nahomi Arana MM screening mammo BI w/CADo n 11-13-2022 MM screening mammo BI w/CAD [facility] [place] [address] [place] [id number] Mammography Report Signed Patient: Zakiya Cuello MR#: [id number] : 1975 Acct:[id number] Age/Sex: 46 / F ADM Date: 11/06/22 Loc: [place] Room: Type: [facility] Attending Dr: [place] [...] Licha Do M.D.11/13/2022 8:29 AM Dictation Location: [facility] Transcribed By: CHRISTY 11/13/22 0829 Dictated By: Licha Do MD 11/13/2226 Signed By: 11/13/22 [address] [facility] CORTISOLon 09-11-2022 Cortisol 3.7 ug/dL Normal [facility] Comment on above: Result Comment: Sonido isol AM 6.2 - 19.4 Cortisol PM 2.3 - 11.9 Performed By: #### E BVPROF #### [facility] [address] [address] [address] Nahomi Arana BARRY-ZHANG VIRUS (EBV) AB PROFILEon 09-11-2022 EBV Ab VCA, IgG 129.0 U/mL Critically high 0.0-17.9 [facility] Comment on above: Result Comment: Nega tive <18.0 Equivocal 18.0 - 21.9 Positive >21.9 Performed By: #### E BVPROF #### [facility] [address] [place] [address] Dr. Nahomi Arana EBV Ab VCA, IgM <36.0 Normal 0.0-35.9 [facility] Comment on above: Result Comment: Nega tive <36.0 Equivocal 36.0 - 43.9 Positive >43.9 Performed By: #### E BVPROF #### [facility] [address] [address] [address] Nahomi Arana EBV Nuclear Antigen Ab, IgG 228.0 U/mL Critically high 0.0-17.9 [facility] Comment on above: Result Comment: Nega tive <18.0 Equivocal 18.0 - 21.9 Positive >21.9 Performed By: #### E BVPROF #### [facility] [address] [address] [address] Nahomi Arana Interpretation: Comment Normal [facility] Comment on above: Result Comment: EBV [...] EBNA. Performed By: #### E BVPROF #### [facility] [address] [address] [address] Nahomi Arana FERRITINon 09-09-2022 Ferritin [Mass/Vol] 79.0 ng/mL Normal 6.2-137.0 [facility] Comment on above: Performed By: #### E BVPROF #### [facility] [address] [address] [address] Nahomi Arana VITAMIN B12on 09-09-2022 Cobalamin (Vitamin B12) [Mass/Vol] 612.0 pg/mL Normal 193.0-986.0 [facility] Comment on above: Performed By: #### E BVPROF #### [facility] [address] [address] [address] Nahomi Arana Albumin [Mass/volume] in Ser um or PlasmaOrdered By: Brendan Mitchell on 09-05-2022 Albumin [Mass/Vol] 3.5 g/dL 3.2-5.5 [facility] Basophils Auto (Bld) [#/Vol] Ordered By: Brendan Mitchell on 09-05-2022 Basophils (Bld) [#/Vol] 0.1 10*3/uL 0.0-0.[address] [facility] Basophils/100 WBC Auto (Bld) Ordered By: Brendan Mitchell on 09-05-2022 Basophils/100 WBC (Bld) 1.0 % . [facility] Bilirubin Test strip Ql (U)O rdered By: Brendan Mitchell on 09-05-2022 Bilirubin Ql (U) Negative Negative [facility] Blood hemoglobin measurement (mass/volume)Ordered By: Brendan Mitchell on 09-05-2022 Hemoglobin (Bld) [Mass/Vol] 12.2 g/dL 11.8-15.[address] [facility] Blood leukocytes automated c ount (number/volume)Ordered By: Brendan Mitchell on 09-05-2022 WBC (Bld) [#/Vol] 8.1 10*3/uL 4.5-11.[address] [facility] [address] abdomen pelvis w conon CT abdomen pelvis w con [facility] [place] [address] [place] [address] CT Scan Report Signed Patient: Zakiya Cuello MR#: [id number] : 1975 Acct:[id number] Age/Sex: 46 / F ADM Date: 09/05/22 Loc: ER Room: Type: [facility] ER Attending Dr: Copies to: Brendan Mitchell [...] Garrison Gill M.D.09/05/2022 7:03 PM Dictation Location: [place] [address] Transcribed By: [facility] 09/05/221902 Dictated By: Garrison Gill DO 09/05/221900 Signed By: 09/05/221902 Normal [facility] Color Auto (U)Ordered By: Fish Mitchell on 09-05-2022 Color (U) Dark yellow Yellow [facility] Complete Blood Count Auto Di ffon 09-05-2022 Basophils (Bld) [#/Vol] 0.1 10*3/uL Normal 0.0-0.[address] [facility] Comment on above: Result Comment: PERF ORMED BY: [place] [address] PATHOLOGIST HVAC ENGINEERING TECHNICIAN HELENA BEVERLY M.D. Performed By: #### L IPASE, CBC, CMP #### [address] Basophils/100 WBC (Bld) 1.0 % Normal . [facility] Comment on above: Performed By: #### L IPASE, CBC, CMP #### [address] Eosinophils (Bld) [#/Vol] 0.2 10*3/uL Normal 0.0-0.[address] [facility] Comment on above: Performed By: #### L IPASE, CBC, CMP #### [address] Eosinophils/100 WBC (Bld) 2.9 % Normal . [facility] Comment on above: Performed By: #### L IPASE, CBC, CMP #### [address] Erythrocyte distribution width (RBC) [Ratio] 13.7 % Normal 11.9-15.[address] [facility] Comment on above: Performed By: #### L IPASE, CBC, CMP #### [address] Hematocrit (Bld) [Volume fraction] 36.0 % Normal 34.0-46.[address] [facility] Comment on above: Performed By: #### L IPASE, CBC, CMP #### [address] Hemoglobin (Bld) [Mass/Vol] 12.2 g/dL Normal 11.8-15.[address] [facility] Comment on above: Performed By: #### L IPASE, CBC, CMP #### [place] [address] [place] Lymphocytes (Bld) [#/Vol] 2.6 10*3/uL Normal 1.00-4.[address] [facility] Comment on above: Performed By: #### L IPASE, CBC, CMP #### [address] Lymphocytes/100 WBC (Bld) 32.4 % Normal . [facility] Comment on above: Performed By: #### L IPASE, CBC, CMP #### [address] MCH (RBC) [Entitic mass] 29.9 pg Normal 24.7-34.[address] [facility] Comment on above: Performed By: #### L IPASE, CBC, CMP #### [address] MCV (RBC) [Entitic vol] 88.6 fL Normal 80-100 [facility] Comment on above: Performed By: #### L IPASE, CBC, CMP #### [address] Mean Corpuscular HGB Conc 33.8 g/dL Normal 32.0-35.[address] [facility] Comment on above: Performed By: #### L IPASE, CBC, CMP #### [address] Monocytes (Bld) [#/Vol] 0.6 10*3/uL Normal 0.0-0.[address] [facility] Comment on above: Performed By: #### L IPASE, CBC, CMP #### [address] Monocytes/100 WBC (Bld) 7.6 % Normal . [facility] Comment on above: Performed By: #### L IPASE, CBC, CMP #### [address] Neutrophils (Bld) [#/Vol] 4.5 10*3/uL Normal 1.8-7.[address] [facility] Comment on above: Performed By: #### L IPASE, CBC, CMP #### [address] [place] [address] [place] Neutrophils/100 WBC (Bld) 56.1 % Normal . [facility] Comment on above: Performed By: #### L IPASE, CBC, CMP #### [address] Nucleated RBC/100 WBC (Bld) [Ratio] 0.0 % Normal 0-0.[address] [facility] Comment on above: Performed By: #### L IPASE, CBC, CMP #### [address] Platelet mean volume (Bld) [Entitic vol] 7.4 fL Normal 6.3-10.[address] [facility] Comment on above: Performed By: #### L IPASE, CBC, CMP #### [address] Platelets (Bld) [#/Vol] 319 10*3/uL Normal 150-[address] [facility] Comment on above: Performed By: #### L IPASE, CBC, CMP #### [address] RBC (Bld) [#/Vol] 4.07 10*6/uL Normal 3.60-5.00 [facility] Comment on above: Performed By: #### L IPASE, CBC, CMP #### [address] WBC (Bld) [#/Vol] 8.1 10*3/uL Normal 4.5-11.0 [facility] Comment on above: Performed By: #### L IPASE, CBC, CMP #### [address] Comprehensive Metabolic Pane sonny 09-05-2022 Albumin [Mass/Vol] 3.5 g/dL Normal 3.2-5.5 [facility] Comment on above: Performed By: #### L IPASE, CBC, CMP #### [address] Albumin/Globulin [Mass ratio] 1.3 {ratio} Normal [facility] Comment on above: Performed By: #### L IPASE, CBC, CMP #### [facility] [address] ALP [Catalytic activity/Vol] 46 U/L Normal 32-[address] [facility] Comment on above: Performed By: #### L IPASE, CBC, CMP #### [facility] [address] [id number] [facility] ALT [Catalytic activity/Vol] 22 U/L Normal 10-[address] [facility] Comment on above: Performed By: #### L IPASE, CBC, CMP #### [facility] [address] Anion gap [Moles/Vol] 12.9 mmol/L Normal 6.0-15.0 [facility] Comment on above: Performed By: #### L IPASE, CBC, CMP #### [facility] [address] AST [Catalytic activity/Vol] 20 U/L Normal 10-[address] [facility] Comment on above: Performed By: #### L IPASE, CBC, CMP #### [facility] [address] Bilirubin [Mass/Vol] 0.3 mg/dL Normal 0.3-1.2 [facility] Comment on above: Performed By: #### L IPASE, CBC, CMP #### [facility] [address] [id number] [place] Calcium [Mass/Vol] 9.6 mg/dL Normal 8.2-10.2 [facility] Comment on above: Performed By: #### L IPASE, CBC, CMP #### [facility] [address] [id number] [place] Chloride [Moles/Vol] 102 mmol/L Normal 95-114 [facility] Comment on above: Performed By: #### L IPASE, CBC, CMP #### [facility] [address] [place] [address] [place] CO2 [Moles/Vol] 27.7 mmol/L Normal 22.0-30.[address] [facility] Comment on above: Performed By: #### L IPASE, CBC, CMP #### [facility] [address] Creatinine [Mass/Vol] 0.73 mg/dL Normal 0.44-1.03 [facility] Comment on above: Performed By: #### L IPASE, CBC, CMP #### [address] Creatinine Clr Calc Pharmacy 96.11 [facility] Comment on above: Performed By: #### L IPASE, CBC, CMP #### [address] Estimated GFR ( [place] > 60 [facility] Comment on above: Result Comment: GFR estimated reference range: According to KDOQI guidelines, <60 ml/min/1.73m2 is sufficient to diagnose a patient with chronic kidney disease. Performed By: #### L IPASE, CBC, CMP #### [address] Estimated GFR (Non- Am > 60 [facility] Comment on above: Performed By: #### L IPASE, CBC, CMP #### [address] Globulin (S) [Mass/Vol] 2.7 g/dL Normal [facility] Comment on above: Performed By: #### L IPASE, CBC, CMP #### [address] Glucose [Mass/Vol] 115 mg/dL High 70-100 [facility] Comment on above: Result Comment: [place] om Glucose Reference Range is dependent on time and content of last meal. Glucose of more than 200 mg/dL in a nonstressed, ambulatory subject supports the diagnosis of Diabetes Mellitus. ADA recommended reference range Performed By: #### L IPASE, CBC, CMP #### [address] Potassium [Moles/Vol] 3.6 mmol/L Normal 3.5-5.1 [facility] Comment on above: Performed By: #### L IPASE, CBC, CMP #### [facility] [address] [place] [address] [place] Protein [Mass/Vol] 6.2 g/dL Normal 6.1-7.9 [facility] Comment on above: Performed By: #### L IPASE, CBC, CMP #### [facility] [address] [place] [address] [place] Sodium [Moles/Vol] 139 mmol/L Normal 136-146 [facility] Comment on above: Performed By: #### L IPASE, CBC, CMP #### [facility] [address] Urea nitrogen [Mass/Vol] 12 mg/dL Normal 9-[address] [facility] Comment on above: Performed By: #### L IPASE, CBC, CMP #### [facility] [address] [place] [address] [place] Creatinine and Glomerular fi ltration rate.predicted panel (S/P/Bld)Ordered By: Brendan Mitchell on 09-05-2022 Creatinine [Mass/Vol] 0.73 mg/dL 0.44-1.03 [facility] ECG 12 lead ECGon 09-05-2022 ECG 12 lead ECG [facility] [place] [address] [place] [address] Electrocardiograph Report Signed Patient: Zakiya Cuello MR#: [id number] : 1975 Acct:[id number] Age/Sex: 46 / F ADM Date: 09/05/22 Loc: ER Room: Type: [facility] ER Attending Dr: Ordering Provider: Brendan Mitchell [...] was found Confirmed by Brendan Mitchell DO ([id number]) on 09/05/2022 8:06:15 PM Referred By: Electronically Signed By:Brendan Mitchell DO Transcribed By: MUS Signed By Brendan Mitchell DO [address] [facility] Eosinophils Auto (Bld) [#/Vo l]Ordered By: Brendan Mitchell on 09-05-2022 Eosinophils (Bld) [#/Vol] 0.2 10*3/uL 0.0-0.[address] [facility] Eosinophils/100 WBC Auto (Bl d)Ordered By: Brendan Mitchell on 09-05-2022 Eosinophils/100 WBC (Bld) 2.9 % . [facility] Erythrocyte distribution wid th Auto (RBC) [Ratio]Ordered By: Brendan Mitchell on 09-05-2022 Erythrocyte distribution width (RBC) [Ratio] 13.7 % 11.9-15.[address] [facility] Estimated glomerular filtrat ion rate (GFR) non- AmericanOrdered By: Brendan Mitchell on 09-05-2022 GFR/1.73 sq M.predicted among non-blacks MDRD (S/P/Bld) [Vol rate/Area] > 60 mL/Min [facility] Globulin Calc (S) [Mass/Vol] Ordered By: Brendan Mitchell on 09-05-2022 Globulin (S) [Mass/Vol] 2.7 g/dL [facility] Hematocrit Auto (Bld) [Volum e fraction]Ordered By: Brendan Mitchell on 09-05-2022 Hematocrit (Bld) [Volume fraction] 36.0 % 34.0-46.[address] [facility] Ketones Auto test strip (U) [Mass/Vol]Ordered By: Brendan Mitchell on 09-05-2022 Ketones (U) [Mass/Vol] Negative Negative Fi [facility] - Chemistry and C hemistry - challengeOrdered By: Brendan iMtchell on 09-05-2022 Lipase [Catalytic activity/Vol] 38.0 U/L 22-[address] [facility] Laboratory - Hematology and Cell countsOrdered By: Brendan Mitchell on 09-05-2022 Nucleated RBC/100 WBC (Bld) [Ratio] 0.0 % 0-0.[address] [facility] Lipaseon 09-05-2022 Lipase [Catalytic activity/Vol] 38.0 U/L Normal 22-[address] [facility] Comment on above: Result Comment: PERF ORMED BY: [facility] [address] [place] [address] PATHOLOGIST HVAC ENGINEERING TECHNICIAN HELENA BEVERLY M.D. Performed By: #### L IPASE, CBC, CMP #### [facility] [address] Lymphocytes Auto (Bld) [#/Vo l]Ordered By: Brendan Mitchell on 09-05-2022 Lymphocytes (Bld) [#/Vol] 2.6 10*3/uL 1.00-4.[address] [facility] Lymphocytes/100 WBC Auto (Bl d)Ordered By: Brendan Mitchell on 09-05-2022 Lymphocytes/100 WBC (Bld) 32.4 % . [facility] MCH Auto (RBC) [Entitic mass ]Ordered By: Brendan Mitchell on 09-05-2022 MCH (RBC) [Entitic mass] 29.9 pg 24.7-34.[address] [facility] MCHC Auto (RBC) [Mass/Vol]Or dered By: Brendan Mitcehll on 09-05-2022 MCHC (RBC) [Mass/Vol] 33.8 g/dL 32.0-35.0 [facility] MCV Auto (RBC) [Entitic vol] Ordered By: Brendan Mitchell on 09-05-2022 MCV (RBC) [Entitic vol] 88.6 fL 80-100 [facility] Monocytes Auto (Bld) [#/Vol] Ordered By: Brendan Mitchell on 09-05-2022 Monocytes (Bld) [#/Vol] 0.6 10*3/uL 0.0-0.[address] [facility] Monocytes/100 WBC Auto (Bld) Ordered By: Brendan Mitchell on 09-05-2022 Monocytes/100 WBC (Bld) 7.6 % . [facility] Neutrophils Auto (Bld) [#/Vo l]Ordered By: Brendan Mitchell on 09-05-2022 Neutrophils (Bld) [#/Vol] 4.5 10*3/uL 1.8-7.[address] [facility] Neutrophils/100 WBC Auto (Bl d)Ordered By: Brendan Mitchell on 09-05-2022 Neutrophils/100 WBC (Bld) 56.1 % . [facility] Nitrite Test strip Ql (U)Ord ered By: Brendan Mitchell on 09-05-2022 Nitrite Ql (U) Negative Negative [facility] No Panel InformationOrdered By: Brendan Mitchell on 09-05-2022 Estimated GFR () > 60 mL/Min [facility] Comment on above: GFR estimated refere nce range: According to KDOQI guidelines, <60 ml/min/1.73m2 is sufficient to diagnose a patient with chronic kidney disease. Pharmacy Creatinine Clearance (Chem 96.[address] [facility] Platelet mean volume Auto (B ld) [Entitic vol]Ordered By: Brendan Mitchell on 09-05-2022 Platelet mean volume (Bld) [Entitic vol] 7.4 fL 6.3-10.[address] [facility] Platelets Auto (Bld) [#/Vol] Ordered By: Brendan Mitchell on 09-05-2022 Platelets (Bld) [#/Vol] 319 10*3/uL 150-[address] [facility] Protein Auto test strip (U) [Mass/Vol]Ordered By: Brendan Mitchell on 09-05-2022 Protein (U) [Mass/Vol] Negative Negative [facility] Protein [Mass/volume] in Ser um or PlasmaOrdered By: Brendan Mitchell on 09-05-2022 Protein [Mass/Vol] 6.2 g/dL 6.1-7.9 [facility] RBC Auto (Bld) [#/Vol]Ordere d By: Brendan Mitchell on 09-05-2022 RBC (Bld) [#/Vol] 4.07 10*6/uL 3.60-5.00 [facility] Serum or plasma alanine greene otransferase measurement without P-5'-P (enzymatic activiOrdered By: Brendan Mitchell on 09-05-2022 ALT No additional P-5'-P [Catalytic activity/Vol] 22 U/L 10-60 [facility] Serum or plasma albumin/glob ulin mass ratioOrdered By: Brendan Mitchell on 09-05-2022 Albumin/Globulin [Mass ratio] 1.3 {ratio} [facility] Serum or plasma alkaline rich sphatase measurement (enzymatic activity/volume)Ordered By: Brendan Mitchell on 09-05-2022 ALP [Catalytic activity/Vol] 46 U/L 32-[address] [facility] Serum or plasma anion gap de terminationOrdered By: Brendan Mitchell on 09-05-2022 Anion gap [Moles/Vol] 12.9 mmol/L 6.0-15.0 [facility] Serum or plasma aspartate am inotransferase measurement (enzymatic activity/volume)Ordered By: Brendan Mitchell on 09-05-2022 AST [Catalytic activity/Vol] 20 U/L 10-[address] [facility] Serum or plasma calcium michell urement (mass/volume)Ordered By: Brendan Mitchell on 09-05-2022 Calcium [Mass/Vol] 9.6 mg/dL 8.2-10.2 [facility] Serum or plasma chloride amber surement (moles/volume)Ordered By: Brendan Mitchell on 09-05-2022 Chloride [Moles/Vol] 102 mmol/L 95-114 [facility] Serum or plasma glucose michell urement (mass/volume)Ordered By: Brendan Mitchell on 09-05-2022 Glucose [Mass/Vol] 115 mg/dL 70-100 [facility] Comment on above: ADA recommended refe rence rangeRandom Glucose Reference Range is dependent on time and content of last meal. Glucose of more than 200 mg/dL in a nonstressed, ambulatory subject supports the diagnosis of Diabetes Mellitus. Serum or plasma potassium me asurement (moles/volume)Ordered By: Brendan Mitchell on 09-05-2022 Potassium [Moles/Vol] 3.6 mmol/L 3.5-5.1 [facility] Serum or plasma sodium measu rement (moles/volume)Ordered By: Brendan Mitchell on 09-05-2022 Sodium [Moles/Vol] 139 mmol/L 136-146 [facility] Serum or plasma total biliru bin measurement (mass/volume)Ordered By: Brendan Mitchell on 09-05-2022 Bilirubin [Mass/Vol] 0.3 mg/dL 0.3-1.2 [facility] Serum or plasma total carbon dioxide measurement (moles/volume)Ordered By: Brendan Mitchell on 09-05-2022 CO2 [Moles/Vol] 27.7 mmol/L 22.0-30.[address] [facility] Serum or plasma urea nitroge n measurement (mass/volume)Ordered By: Brendan Mitchell on 09-05-2022 Urea nitrogen [Mass/Vol] 12 mg/dL - [facility] Specific gravity Auto test s trip (U) [Rel density]Ordered By: Brendan Mitchell on 09-05-2022 Specific gravity (U) [Rel density] 1.022 1.001-1.[address] [facility] Urinalysison 09-05-2022 Appearance (U) Clear Normal Clear [facility] Comment on above: Order Comment: Name Collection Type:: Clean-Voided Midstream Performed By: #### U A #### [facility] [address] [place] [address] [place] Bilirubin,Urine Negative Normal Negative [facility] Comment on above: Order Comment: Name Collection Type:: Clean-Voided Midstream Performed By: #### U A #### [facility] [address] [place] [address] [place] Color (U) Dark Yellow Critically abnormal Yellow [facility] Comment on above: Order Comment: Name Collection Type:: Clean-Voided Midstream Performed By: #### U A #### [facility] [address] [place] [id number] [place] Glucose Ql (U) Normal Normal Normal [facility] Comment on above: Order Comment: Name Collection Type:: Clean-Voided Midstream Performed By: #### U A #### [facility] [address] [place] [id number] [place] Ketones Ql (U) Negative Normal Negative [facility] Comment on above: Order Comment: Name Collection Type:: Clean-Voided Midstream Performed By: #### U A #### [address] Leukocyte esterase Test strip Ql (U) Negative Normal Negative [facility] Comment on above: Order Comment: Name Collection Type:: Clean-Voided Midstream Performed By: #### U A #### [address] Nitrite,Urine Negative Normal Negative [facility] Comment on above: Order Comment: Name Collection Type:: Clean-Voided Midstream Performed By: #### U A #### [address] Occult Blood,Urine Negative Normal Negative [facility] Comment on above: Order Comment: Name Collection Type:: Clean-Voided Midstream Result Comment: PERF ORMED BY: [place] [address] PATHOLOGIST HVAC ENGINEERING TECHNICIAN HELENA BEVERLY M.D. Performed By: #### U A #### [address] pH (U) 6.5 [pH] Normal 5.0-9.[address] [facility] Comment on above: Order Comment: Name Collection Type:: Clean-Voided Midstream Performed By: #### U A #### [address] Protein,Urine Negative Normal Negative [facility] Comment on above: Order Comment: Name Collection Type:: Clean-Voided Midstream Performed By: #### U A #### [address] Specificy Romeo,Urine 1.022 Normal 1.001-1.[address] [facility] Comment on above: Order Comment: Name Collection Type:: Clean-Voided Midstream Performed By: #### U A #### [address] Urobilinogen,Urine Normal Normal Normal [facility] Comment on above: Order Comment: Name Collection Type:: Clean-Voided Midstream Performed By: #### U A #### [facility] [address] [place] [id number] [facility] Urine clarity by refractomet ry automatedOrdered By: Brendan Mitchell on 09-05-2022 Clarity Refractometry automated (U) Clear Clear [facility] Urine glucose measurement by automated test strip (mass/volume)Ordered By: Brendan Mitchell on 09-05-2022 Glucose Auto test strip (U) [Mass/Vol] Normal mg/dL Normal [facility] Urine hemoglobin detection b y automated test stripOrdered By: Brendan Mitchell on 09-05-2022 Hemoglobin Auto test strip Ql (U) Negative Negative [facility] Urine leukocyte esterase det ection by automated test stripOrdered By: Brendan Mitchell on 09-05-2022 Leukocyte esterase Auto test strip Ql (U) Negative Negative [facility] Urobilinogen Auto test strip (U) [Mass/Vol]Ordered By: Brendan Mitchell on 09-05-2022 Urobilinogen (U) [Mass/Vol] Normal mg/dL Normal [facility] pH Auto test strip (U)Ordere d By: Brendan Mitchell on 09-05-2022 pH (U) 6.5 [pH] 5.0-9.[address] [facility] INSULINon 09-03-2022 Insulin 15.6 uIU/mL Normal 2.6-24.9 [facility] Comment on above: Performed By: #### I NSULIN #### [facility] [address] [place] [address] Dr. Nahomi Arana CBC AUTO DIFFon 09-02-2022 BASO # 0.0 103/ul Normal 0.0-0.1 [facility] Comment on above: Performed By: #### E BVPROF #### [facility] [address] [address] [address] Nahomi Arana Basophils/100 WBC (Bld) 0.5 % Normal 0.2-2.0 [facility] Comment on above: Performed By: #### E BVPROF #### [facility] [address] [address] [address] Nahomi Arana EO # 0.2 103/ul Normal 0.0-0.7 [facility] Comment on above: Performed By: #### E BVPROF #### [facility] [address] [place] [address] Dr. Nahomi Arana Eosinophils/100 WBC (Bld) 2.2 % Normal 0.9-7.0 [facility] Comment on above: Performed By: #### E BVPROF #### [facility] [address] [place] [address] Dr. Nahomi Arana Erythrocyte distribution width (RBC) [Ratio] 13.2 % Normal 11.0-15.0 [facility] Comment on above: Performed By: #### E BVPROF #### [facility] [address] [place] [address] Dr. Nahomi Arana Hematocrit (Bld) [Volume fraction] 39.3 % Normal 36.0-48.0 [facility] Comment on above: Performed By: #### E BVPROF #### [facility] [address] [place] [address] Dr. Nahomi Arana Hemoglobin (Bld) [Mass/Vol] 13.0 g/dL Normal 12.0-16.0 [facility] Comment on above: Performed By: #### E BVPROF #### [facility] [address] [place] [address] Dr. Nahomi Arana IG # 0.02 10e3/ul Normal 0.00-0.03 [facility] Comment on above: Performed By: #### E BVPROF #### [facility] [address] [place] [address] Dr. Nahomi Arana IG % 0.2 % Normal 0.0-0.5 [facility] Comment on above: Performed By: #### E BVPROF #### [facility] [address] [place] [address] Dr. Nahomi Arana LYMPH # 2.2 103/ul Normal 1.2-3.8 [facility] Comment on above: Performed By: #### E BVPROF #### [facility] [address] [place] [address] Dr. Nahomi Arana Lymphocytes/100 WBC (Bld) 25.7 % Normal 20.5-60.0 [facility] Comment on above: Performed By: #### E BVPROF #### [facility] [address] [place] [address] Dr. Nahomi Arana MANUAL DIFF REQ NO Normal [facility] Comment on above: Performed By: #### E BVPROF #### [facility] [address] [place] [address] Dr. Nahomi Arana MCH (RBC) [Entitic mass] 30.0 pg Normal 26.7-34.0 [facility] Comment on above: Performed By: #### E BVPROF #### [facility] [address] [place] [address] Dr. Nahomi Arana MCHC (RBC) [Mass/Vol] 33.1 g/dL Normal 29.9-35.2 [facility] Comment on above: Performed By: #### E BVPROF #### [facility] [address] [place] [address] Dr. Nahomi Arana MCV (RBC) [Entitic vol] 90.6 fL Normal 81.0-99.0 [facility] Comment on above: Performed By: #### E BVPROF #### [facility] [address] [place] [address] Dr. Nahomi Arana MONO # 0.5 103/ul Normal 0.3-0.8 [facility] Comment on above: Performed By: #### E BVPROF #### [facility] [address] [place] [address] Dr. Nahomi Arana Monocytes/100 WBC (Bld) 5.8 % Normal 1.7-12.0 [facility] Comment on above: Performed By: #### E BVPROF #### [facility] [address] [place] [address] Dr. Nahomi Arana NEUT # 5.6 103/ul Normal 1.4-6.5 [facility] Comment on above: Performed By: #### E BVPROF #### [facility] [address] [place] [address] Dr. Nahomi Arana Neutrophils/100 WBC (Bld) 65.6 % Normal 43.0-75.0 [facility] Comment on above: Performed By: #### E BVPROF #### [facility] [address] [place] [address] Dr. Nahomi Arana Platelet mean volume (Bld) [Entitic vol] 9.1 fL Critically low 9.5-13.5 [facility] Comment on above: Performed By: #### E BVPROF #### [facility] [address] [place] [address] Dr. Nahomi Arana PLT 340 103/ul Normal 150-450 [facility] Comment on above: Performed By: #### E BVPROF #### [facility] [address] [place] [address] Dr. Nahomi Arana RBC 4.34 106/ul Normal 4.20-5.40 [facility] Comment on above: Performed By: #### E BVPROF #### [facility] [address] [place] [address] Dr. Nahomi Arana WBC 8.5 103/ul Normal 4.0-11.0 [facility] Comment on above: Performed By: #### E BVPROF #### [facility] [address] [place] [address] Dr. Nahomi Arana CULTURE URINEon 09-02-2022 CULTURE URINE Culture Observations: LIGHT GROWTH OF MIXED GENITAL TOMMY. NO POTENTIAL PATHOGENS SEEN. Normal [facility] Comment on above: Performed By: #### E BVPROF #### [facility] [address] [place] [address] Dr. Nahomi Arana FREE THYROXINE INDEX T7on FTI 2.83 Normal 1.30-4.50 [facility] Comment on above: Performed By: #### C MP, LIPID, TSH, T7 #### [facility] [address] [place] [address] Dr. Nahomi Arana T3U 26.0 % Critically low 30.0-39.0 [facility] Comment on above: Performed By: #### C MP, LIPID, TSH, T7 #### [facility] [address] [place] [address] Dr. Nahomi Arana T4 [Mass/Vol] 10.90 ug/dL Normal 4.80-13.90 [facility] Comment on above: Performed By: #### C MP, LIPID, TSH, T7 #### [facility] [address] [address] [address] Nahomi Arana GLYCOHEMOGLOBIN A1Con 2021 ADA RECOMMENDATION SEE BELOW Normal [facility] Comment on above: Result Comment: ADA RECOMMENDED LIMIT 4.0 - 6.0 ADA THERAPEUTIC TARGET < 7.0 ACTION SUGGESTED > 7.0 Performed By: #### E BVPROF #### [facility] [address] [place] [address] Dr. Nahomi Arana Glucose [Mass/Vol] 108 mg/dL Normal [facility] Comment on above: Performed By: #### E BVPROF #### [facility] [address] [place] [address] Dr. Nahomi Arana HbA1c (Bld) [Mass fraction] 5.4 % Normal 4.5-6.2 [facility] Comment on above: Performed By: #### E BVPROF #### [facility] [address] [place] [address] Dr. Nahomi Arana IRONon 09-02-2022 Iron [Mass/Vol] 84.0 ug/dL Normal 50.0-170.0 [facility] Comment on above: Performed By: #### I ALISHA CHÁVEZ #### [facility] [address] [place] [address] Dr. Nahomi Arana LIPID PROFILEon 09-02-2022 CHOL-HDL RATIO NORM SEE BELOW Normal [facility] Comment on above: Result Comment: 3.3 - 4.4 LOW RISK 4.4 - 7.1 AVERAGE RISK 7.1 - 11.0 MODERATE RISK >11.0 HIGH RISK Performed By: #### C MP, LIPID, TSH, T7 #### [facility] [address] [place] [address] Dr. Nahomi Arana Cholesterol [Mass/Vol] 201 mg/dL Critically high <=200 [facility] Comment on above: Performed By: #### C MP, LIPID, TSH, T7 #### [facility] [address] [address] [address] Nahomi Arana Cholesterol in HDL [Mass/Vol] 57 mg/dL Normal 40-60 [facility] Comment on above: Performed By: #### C MP, LIPID, TSH, T7 #### [facility] [address] [address] [address] Nahomi Arana Cholesterol in LDL [Mass/Vol] 101.6 mg/dL Normal [facility] Comment on above: Performed By: #### C MP, LIPID, TSH, T7 #### [facility] [address] [address] [address] Nahomi Arana Cholesterol.total/Cholest damion in HDL [Mass ratio] 3.5 {ratio} Normal [facility] Comment on above: Performed By: #### C MP, LIPID, TSH, T7 #### [facility] [address] [address] [address] Nahomi Arana HDL NORMAL > or = 60 mg/dl - LOW CARDIOVASCULAR RISK <40 mg/dl - HIGH CARDIOVASCULAR RISK Normal [facility] Comment on above: Performed By: #### C MP, LIPID, TSH, T7 #### [facility] [address] [address] [address] Nahomi Arana LDL CALC NORMAL SEE BELOW Normal [facility] Comment on above: Result Comment: <100 mg/dl OPTIMAL 100 - 129 mg/dl NEAR OR ABOVE OPTIMAL 130 - 159 mg/dl BORDERLINE HIGH 160 - 189 mg/dl HIGH >190 mg/dl VERY HIGH Performed By: #### C MP, LIPID, TSH, T7 #### [facility] [address] [address] [address] Nahomi Arana Triglyceride [Mass/Vol] 212 mg/dL Critically high <=150 [facility] Comment on above: Performed By: #### C MP, LIPID, TSH, T7 #### [facility] [address] [address] [address] Nahomi Arana VLDL CALC 42.4 mg/dL Normal [facility] Comment on above: Performed By: #### C MP, LIPID, TSH, T7 #### [facility] [address] [place] [address] Dr. Nahomi Arana PROF 14(COMP METB)on 022 Albumin [Mass/Vol] 3.7 g/dL Normal 3.4-5.0 [facility] Comment on above: Performed By: #### C MP, LIPID, TSH, T7 #### [facility] [address] [place] [address] Dr. Nahomi Arana Albumin/Globulin [Mass ratio] 1.1 {ratio} Normal [facility] Comment on above: Performed By: #### C MP, LIPID, TSH, T7 #### [facility] [address] [place] [address] Dr. Nahomi Arana ALP [Catalytic activity/Vol] 59 U/L Normal 46-116 [facility] Comment on above: Performed By: #### C MP, LIPID, TSH, T7 #### [facility] [address] [place] [address] Dr. Nahomi Arana ALT [Catalytic activity/Vol] 26 U/L Normal 14-59 [facility] Comment on above: Performed By: #### C MP, LIPID, TSH, T7 #### [facility] [address] [place] [address] Dr. Nahomi Arana Anion gap [Moles/Vol] 8.6 mmol/L Normal [facility] Comment on above: Performed By: #### C MP, LIPID, TSH, T7 #### [facility] [address] [place] [address] Dr. Nahomi Arana AST [Catalytic activity/Vol] 13 U/L Critically low 15-37 [facility] Comment on above: Performed By: #### C MP, LIPID, TSH, T7 #### [facility] [address] [place] [address] Dr. Nahomi Arana Bilirubin [Mass/Vol] 0.4 mg/dL Normal 0.2-1.0 [facility] Comment on above: Performed By: #### C MP, LIPID, TSH, T7 #### [facility] [address] [place] [address] Dr. Nahomi Arana Calcium [Mass/Vol] 9.4 mg/dL Normal 8.5-10.1 [facility] Comment on above: Performed By: #### C MP, LIPID, TSH, T7 #### [facility] [address] [place] [address] Dr. Nahomi Arana Chloride [Moles/Vol] 104 mmol/L Normal 98-107 [facility] Comment on above: Performed By: #### C MP, LIPID, TSH, T7 #### [facility] [address] [place] [address] Dr. Nahomi Arana CO2 [Moles/Vol] 31.5 mmol/L Normal 21.0-32.0 [facility] Comment on above: Performed By: #### C MP, LIPID, TSH, T7 #### [facility] [address] [place] [address] Dr. Nahomi Arana Creatinine [Mass/Vol] 0.80 mg/dL Normal 0.55-1.02 [facility] Comment on above: Performed By: #### C MP, LIPID, TSH, T7 #### [facility] [address] [place] [address] Dr. Nahomi Arana EGFR-AF IRANIAN >60 Normal >=60 [facility] Comment on above: Performed By: #### C MP, LIPID, TSH, T7 #### [facility] [address] [place] [address] Dr. Nahomi Arana EGFR-NON AF IRANIAN >60 Normal >=60 [facility] Comment on above: Performed By: #### C MP, LIPID, TSH, T7 #### [facility] [address] [place] [address] Dr. Nahomi Arana Globulin (S) [Mass/Vol] 3.5 g/dL Normal T [facility] Comment on above: Performed By: #### C MP, LIPID, TSH, T7 #### [facility] [address] [place] [address] Dr. Nahomi Arana Glucose [Mass/Vol] 96 mg/dL Normal 74-106 [facility] Comment on above: Performed By: #### C MP, LIPID, TSH, T7 #### [facility] [address] [place] [address] Dr. Nahomi Arana Potassium [Moles/Vol] 4.1 mmol/L Normal 3.5-5.1 [facility] Comment on above: Performed By: #### C MP, LIPID, TSH, T7 #### [facility] [address] [place] [address] Dr. Nahomi Arana Protein [Mass/Vol] 7.2 g/dL Normal 6.4-8.2 [facility] Comment on above: Performed By: #### C MP, LIPID, TSH, T7 #### [facility] [address] [place] [address] Dr. Nahomi Arana Sodium [Moles/Vol] 140 mmol/L Normal 136-145 [facility] Comment on above: Performed By: #### C MP, LIPID, TSH, T7 #### [facility] [address] [place] [address] Dr. Nahomi Arana Urea nitrogen [Mass/Vol] 12.0 mg/dL Normal 7.0-18.0 [facility] Comment on above: Performed By: #### C MP, LIPID, TSH, T7 #### [facility] [address] [place] [address] Dr. Nahomi Arana Urea nitrogen/Creatinine [Mass ratio] 15.0 mg/mg Normal [facility] Comment on above: Performed By: #### C MP, LIPID, TSH, T7 #### [facility] [address] [place] [address] Dr. Nahomi Arnaa TSHon 09-02-2022 TSH 0.743 uIU/mL Normal 0.358-3.740 [facility] Comment on above: Performed By: #### C MP, LIPID, TSH, T7 #### [facility] [address] [place] [address] Dr. Nahomi Arana UA RANDOM W/MICROSCOPICon BACTERIA TRACE Abnormal NONE SEEN The [facility] Comment on above: Performed By: #### U AMIC #### [facility] [address] [place] [address] Dr. Nahomi Arana Bilirubin Ql (U) Negative Normal NEGATIVE [facility] Comment on above: Performed By: #### U AMIC #### [facility] [address] [place] [address] Dr. Nahomi Arana CAST NONE SEEN Normal NONE SEEN [facility] Comment on above: Performed By: #### U AMIC #### [facility] [address] [place] [address] Dr. Nahomi Arana Clarity (U) CLEAR Normal CLEAR The [facility] Comment on above: Performed By: #### U AMIC #### [facility] [address] [place] [address] Dr. Nahomi Arana Color (U) YELLOW Normal YELLOW [facility] Comment on above: Performed By: #### U AMIC #### [facility] [address] [place] [address] Dr. Nahomi Arana Crystals LM Nom (Urine sed) NONE SEEN Normal NONE SEEN [facility] Comment on above: Performed By: #### U AMIC #### [facility] [address] [place] [address] Dr. Nahomi Arana Epithelial cells LM Ql (Urine sed) RARE Normal NONE SEEN /RARE The [facility] Comment on above: Performed By: #### U AMIC #### [facility] [address] [place] [address] Dr. Nahomi Arana Glucose Ql (U) Negative Normal NEGATIVE [facility] Comment on above: Performed By: #### U AMIC #### [facility] [address] [place] [address] Dr. Nahomi Arana Hemoglobin Ql (U) Negative Normal NEGATIVE The [facility] Comment on above: Performed By: #### U AMIC #### [facility] [address] [place] [address] Dr. Nahomi Arana Ketones Ql (U) Negative Normal NEGATIVE [facility] Comment on above: Performed By: #### U AMIC #### [facility] [address] [place] [address] Dr. Nahomi Arana LEUKOCYTES Negative Normal NEGATIVE [facility] Comment on above: Performed By: #### U AMIC #### [facility] [address] [address] [address] Nahomi Arana MUCOUS TRACE Abnormal NONE SEEN [facility] Comment on above: Performed By: #### U AMIC #### The [facility] [address] [place] [address] Dr. Nahomi Arana Nitrite Ql (U) Negative Normal NEGATIVE [facility] Comment on above: Performed By: #### U AMIC #### [facility] [address] [place] [address] Dr. Nahomi Arana pH (U) 5.5 [pH] Normal 5-9 The [facility] Comment on above: Performed By: #### U AMIC #### [facility] [address] [place] [address] Dr. Nahomi Arana RBC 0-2 Normal 0-2 [facility] Comment on above: Performed By: #### U AMIC #### [facility] [address] [place] [address] Dr. Nahomi Arana SPEC GRAVITY >=1.030 Abnormal 1.005-<=1.02 5 [facility] Comment on above: Performed By: #### U AMIC #### [facility] [address] [place] [address] Dr. Nahomi Arana UA PROTEIN Negative Normal NEGATIVE/ TRACE The [facility] Comment on above: Performed By: #### U AMIC #### [facility] [address] [place] [address] Dr. Nahomi Arana Urobilinogen Qn (U) 0.2 {Jesus'U}/dL Normal 0.2 - 1. 0 The [facility] Comment on above: Performed By: #### U AMIC #### [facility] [address] [place] [address] Dr. Nahomi Arana WBC 0-2 Abnormal NONE SEEN [facility] Comment on above: Performed By: #### U AMIC #### [facility] [address] [place] [address] Dr. Nahomi Arana VITAMIN D 25 OHon 09-02-2022 VIT D 25-OH 29.5 ng/mL Normal The [facility] Comment on above: Performed By: #### I KYLER VITAD #### [facility] [address] [place] [address] Dr. Nahomi Arana VIT D RANGES SEE BELOW Normal [facility] Comment on above: Result Comment: <20 ng/mL Vit D deficient 20 - <30 ng/mL Vit D insufficient 30 - 100 ng/mL Vit D sufficient >100 ng/mL Potential Toxicity Performed By: #### I KYLER VITAD #### [facility] [address] [place] [address] Dr. Nahomi Arana PAP ACOG PANEL 2: 30 to 65on 07-10-2022 . . Normal [facility] Comment on above: Result Comment: Perf ormed at: WB Performed By: #### E BVPROF #### [facility] [address] [place] [address] Dr. Nahomi Arana Age Gdln ACOG Testing 30-65 Normal [facility] Comment on above: Performed By: #### E BVPROF #### [facility] [address] [place] [address] Dr. Nahomi Arana DIAGNOSIS: Comment Normal [facility] Comment on above: Result Comment: NEGA TIVE FOR INTRAEPITHELIAL LESION OR MALIGNANCY. Performed at: WB Performed By: #### E BVPROF #### [facility] [address] [place] [address] Dr. Nahomi Arana HPV Aptima Negative Normal Negative [facility] Comment on above: Result Comment: This nucleic acid amplification test detects fourteen high-risk HPV types (16,18,31,33,35,39,45,51,52,56,58,59,66,68) without differentiation. Performed at: =G Performed By: #### E BVPROF #### [facility] [address] [place] [address] Dr. Nahomi Arana Methodology: Comment Normal [facility] Comment on above: Result Comment: This liquid based ThinPrep(R) pap test was screened with the use of an image guided system. Performed at: WB Performed By: #### E BVPROF #### [facility] [address] [place] [address] Dr. Nahomi Arana Note: Comment Normal [facility] Comment on above: Result Comment: [...] WB Performed By: #### E BVPROF #### [facility] [address] [place] [address] Dr. Nahomi Arana Performed by: Comment Normal [facility] Comment on above: Result Comment: Sabra Bryant, Web Site Project Manager (ASCP) Performed at: WB Performed By: #### E BVPROF #### [facility] [address] [place] [address] Dr. Nahomi Arana Specimen adequacy: Comment Normal [facility] Comment on above: Result Comment: Sati sfactory for evaluation. No endocervical component is identified. Performed at: WB Performed By: #### E BVPROF #### [facility] [address] [place] [address] Dr. Nahomi Arana Covid-19 PCR (CVDTBH)on 04-30 SARS-CoV-2 (COVID-19) RNA ORTIZ+probe Ql (Unsp spec) Detected Critically abnormal NOT DETECTED The [facility] Comment on above: Result Comment: This test is not yet approved or cleared by the [place] FDA. When there are no FDA-approved or cleared tests available, and other criteria are met, FDA can make tests available under an emergency access mechanism called an Emergency Use Authorization (EUA). The EUA for this test is supported by the [place] of Health and Human Service's declaration that [...] used). Performed By: #### C VDTBH #### [facility] [address] [place] [address] Dr. Nahomi Arana ZAID by IFAon 12-09-2021 ZAID Pattern Negative Normal [facility] Comment on above: Performed By: #### W SR, VITD, C3COMP, C4COMP, CRP, ENAID, CCP, ANAIFS, RF, DNAAB, CK ####[address] [phone] ZAID Titer Negative Normal Negative [facility] Comment on above: Result Comment: Norm al range : negative at <1:80 serum dilution. Performed By: #### W SR, VITD, C3COMP, C4COMP, CRP, ENAID, CCP, ANAIFS, RF, DNAAB, CK ####[address] [phone] Nuclear Ab IF (S) [Titer] Negative Normal Negative [facility] Comment on above: Result Comment: [...] CRP, ENAID, CCP, ANAIFS, RF, DNAAB, CK ####[address] [phone] C-Reactive Proteinon 022 C-Reactive Protein 0.3 mg/dL Normal <0.9 [facility] Comment on above: Performed By: #### W SR, VITD, C3COMP, C4COMP, CRP, ENAID, CCP, ANAIFS, RF, DNAAB, CK ####[address] [phone] C3 Complementon 12-09-2021 C3 Complement 167 mg/dL High 86-166 [facility] Comment on above: Performed By: #### W SR, VITD, C3COMP, C4COMP, CRP, ENAID, CCP, ANAIFS, RF, DNAAB, CK ####[place] [address] [place], [place] [phone] C4 Complementon 12-09-2021 C4 Complement 21 mg/dL Normal 13-46 [facility] Comment on above: Performed By: #### W SR, VITD, C3COMP, C4COMP, CRP, ENAID, CCP, ANAIFS, RF, DNAAB, CK ####[address] [phone] CCP Antibody, IgGon 12-09-19 22 CCP Antibody, IgG <15 Normal <20 [facility] Comment on above: Result Comment: < 20 units: Negative 20-39 units: Weak Positive 40-59 units: Moderate Positive > 60 units: Strong Positive The following results were obtained with the [employer] QUANTA Lite CCP3 IgG ANGELICA. Anti-CCP values obtained with different manufacturers' assay methods may not be used interchangeably. The magnitude of the reported IgG levels cannot be correlated to an endpoint titer. Performed By: #### W SR, VITD, C3COMP, C4COMP, CRP, ENAID, CCP, ANAIFS, RF, DNAAB, CK ####[place] [address] [place], [place] [phone] CKon 12-09-2021 CK [Catalytic activity/Vol] 117 U/L Normal 42-196 [facility] Comment on above: Performed By: #### W SR, VITD, C3COMP, C4COMP, CRP, ENAID, CCP, ANAIFS, RF, DNAAB, CK ####[place] [address] [place], [place] [phone] CNOVon 12-09-2021 CNOV Office Visit (RHEUMN) ---- YONATANZAKIYA ([id number]) 1975 F Date Time Provider Department 12/09/21 [...] (human papilloma virus) infection - Hyperlipidemia 09/2015 [id number] - Migraine - Neuropathy Diagnosis made by [...] Lysis of adhesions.Monarc transobturator midurethral sling, ref [id number], lot [id number]. 4. Posterior repair. - REMOVAL ADENOIDS,PRIMARY,<1 2 [...] LEAST 35 (more content not included)... Normal [facility] DNA Antibodyon 12-09-2021 DNA Antibody 16 IU/mL Normal <30 [facility] Comment on above: Result Comment: Nega tive for ds DNA Antibodies Negative: <30 IU/mL Equivocal: 30-74 IU/mL Positive: >74 IU/mL Performed By: #### W SR, VITD, C3COMP, C4COMP, CRP, ENAID, CCP, ANAIFS, RF, DNAAB, CK ####[address] [place], [place] [phone] JAMEEL Antibody Panelon 022 Centromere <0.2 Normal <1.0 [facility] Comment on above: Result Comment: NEGA TIVE Negative: <1.0 AI Positive: >0.9 AI Test performed using the Multiplex Flow Immunoassay technology. Performed By: #### W SR, VITD, C3COMP, C4COMP, CRP, ENAID, CCP, ANAIFS, RF, DNAAB, CK ####[address] [place], [place] [phone] Chromatin Antibody <0.2 Normal <1.0 [facility] Comment on above: Result Comment: NEGA TIVE Negative: <1.0 AI Positive: >0.9 AI Test performed using the Multiplex Flow Immunoassay technology. Performed By: #### W SR, VITD, C3COMP, C4COMP, CRP, ENAID, CCP, ANAIFS, RF, DNAAB, CK ####[address] [place], [place] [phone] NICOLE 1 Antibody <0.2 Normal <1.0 [facility] Comment on above: Result Comment: NEGA TIVE Negative: <1.0 AI Positive: >0.9 AI Test performed using the Multiplex Flow Immunoassay technology. Performed By: #### W SR, VITD, C3COMP, C4COMP, CRP, ENAID, CCP, ANAIFS, RF, DNAAB, CK ####[address] [phone] Ribosomal HEEL STAINER <0.2 Normal <1.0 [facility] Comment on above: Result Comment: NEGA TIVE Negative: <1.0 AI Positive: >0.9 AI Test performed using the Multiplex Flow Immunoassay technology. Performed By: #### W SR, VITD, C3COMP, C4COMP, CRP, ENAID, CCP, ANAIFS, RF, DNAAB, CK ####[place] [phone] HEEL STAINER Antibody <0.2 Normal <1.0 [facility] Comment on above: Result Comment: NEGA TIVE Negative: <1.0 AI Positive: >0.9 AI Test performed using the Multiplex Flow Immunoassay technology. Performed By: #### W SR, VITD, C3COMP, C4COMP, CRP, ENAID, CCP, ANAIFS, RF, DNAAB, CK ####[place] [phone] Scleroderma IgG Ab <0.2 Normal <1.0 [facility] Comment on above: Result Comment: NEGA TIVE Negative: <1.0 AI Positive: >0.9 AI Test performed using the Multiplex Flow Immunoassay technology. Performed By: #### W SR, VITD, C3COMP, C4COMP, CRP, ENAID, CCP, ANAIFS, RF, DNAAB, CK ####[address] [phone] Sm Antibody <0.2 Normal <1.0 [facility] Comment on above: Result Comment: NEGA TIVE Negative: <1.0 AI Positive: >0.9 AI Test performed using the Multiplex Flow Immunoassay technology. Performed By: #### W SR, VITD, C3COMP, C4COMP, CRP, ENAID, CCP, ANAIFS, RF, DNAAB, CK ####[place] [address] [place] [address], [place] [phone] SSA Antibody <0.2 Normal <1.0 [facility] Comment on above: Result Comment: NEGA TIVE Negative: <1.0 AI Positive: >0.9 AI Test performed using the Multiplex Flow Immunoassay technology. Performed By: #### W SR, VITD, C3COMP, C4COMP, CRP, ENAID, CCP, ANAIFS, RF, DNAAB, CK ####[place] [address], [place] [phone] SSB Antibody <0.2 Normal <1.0 [facility] Comment on above: Result Comment: NEGA TIVE Negative: <1.0 AI Positive: >0.9 AI Test performed using the Multiplex Flow Immunoassay technology. Performed By: #### W SR, VITD, C3COMP, C4COMP, CRP, ENAID, CCP, ANAIFS, RF, DNAAB, CK ####[place] [address], [place] [phone] Rheumatoid Factoron 12-09-19 22 Rheumatoid Factor <10 Normal <16 [facility] Comment on above: Performed By: #### W SR, VITD, C3COMP, C4COMP, CRP, ENAID, CCP, ANAIFS, RF, DNAAB, CK ####[place] [address] [place], [place] [phone] Sed Rate Westergrenon 2021 Sed Rate Westergren 20 mm/hr Normal 0-20 [facility] Comment on above: Performed By: #### W SR, VITD, C3COMP, C4COMP, CRP, ENAID, CCP, ANAIFS, RF, DNAAB, CK ####[place] [address], [place] [phone] Urinalysison 12-09-2021 Bilirubin, Urine Negative Normal Negative [facility] Comment on above: Performed By: #### U A ####[place] [address] [address] [place] [phone] Clarity (U) Clear Normal Clear [facility] Comment on above: Performed By: #### U A ####[place] [phone] Color (U) Straw Critically abnormal Yellow [facility] Comment on above: Performed By: #### U A ####[place] [phone] Comments SEE COMMENT Normal [facility] Comment on above: Result Comment: Micr oscopic Examination Performed Performed By: #### U A ####[place] [phone] Epithelial cells LM Ql (Urine sed) SEE COMMENT Normal [facility] Comment on above: Result Comment: Few Squamous Epithelial Cells Performed By: #### U A ####[place] [phone] Glucose Ql (U) Negative Normal Negative [facility] Comment on above: Performed By: #### U A ####[place] [phone] Hemoglobin/Blood,Ur 1+ Critically abnormal Negative [facility] Comment on above: Performed By: #### U A ####[place] [phone] Ketones Ql (U) Negative Normal Negative [facility] Comment on above: Performed By: #### U A ####[place] [address] [place] [phone] Leukest Negative Normal Negative [facility] Comment on above: Performed By: #### U A ####[place] [phone] Nitrite Ql (U) Negative Normal Negative [facility] Comment on above: Performed By: #### U A ####[place] [address] [place], [place] [phone] pH (U) 6.0 [pH] Normal 5.0-8.0 [facility] Comment on above: Performed By: #### U A ####[place] [address], [place] [phone] Protein, Urine Negative Normal Negative [facility] Comment on above: Performed By: #### U A ####[place] [address], [place] [phone] RBC 0-3 Normal 0-3 [facility] Comment on above: Performed By: #### U A ####[address] [phone] Specific Romeo, Ur 1.008 Normal 1.005-1.030 [facility] Comment on above: Performed By: #### U A ####[place] [address], [place] [phone] Urine Abdirizak Comment SEE COMMENT Normal [facility] Comment on above: Result Comment: N/A Performed By: #### U A ####[place] [address], [place] [phone] Urobilinogen (U) [Mass/Vol] Negative Normal Negative [facility] Comment on above: Performed By: #### U A ####[place] [address], [place] [phone] WBC 0-5 Normal 0-5 [facility] Comment on above: Performed By: #### U A ####[address] [phone] Vitamin D 25 Hydroxyon 12-09 Vitamin D 25 Hydroxy 27.5 ng/mL Low 31.0-80.0 [facility] Comment on above: Result Comment: Clas sification of 25 [place] Vitamin D status: Insufficiency/Moderate Deficiency: < or = 30 ng/mL Sufficiency/Optimal Levels: 31 to 80 ng/mL Toxicity: > 100 ng/mL Test performed by chemiluminescent immunoassay. Performed By: #### W SR, VITD, C3COMP, C4COMP, CRP, ENAID, CCP, ANAIFS, RF, DNAAB, CK ####[facility] [address] [place], [place] [phone] XR HAND 3V PA/LAT/OBL BILon 12-09-2021 XR [...] No other significant abnormality. ------- IMPRESSION: OSTEOARTHRITIS Exhauster: CELSO Transcribe Date/Time: Dec 09 2021 3:11P Dictated by : MIRIAM BILL MD This examination was interpreted and the report reviewed and electronically signed by: MIRIAM BILL MD on Dec 09 2021 3:12PM EST [id number] Normal [facility] CNOVon 08-14-2021 CNOV Office Visit (GYNMN) ---- ZAKIYA CUELLO ([id number]) 1975 F Date Time Provider Department 08/14/21 [...] (human papilloma virus) infection - Hyperlipidemia 09/2015 [id number] - Migraine - Neuropathy Diagnosis made by [...] Lysis of adhesions.Monarc transobturator midurethral sling, ref [id number], lot [id number]. 4. Posterior repair. 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 Warm, dry. ENDO: No obvious hirsutism signs. EYES: Conjunctivae clear. No discoloration. NECK: No mass LUNGS: Breathing comfortably without distress, CTAB HEART: RRR, no r/g ABDOMEN: Soft. NTND. No masses. PELVIC: external genitalia normal, normal Bartholin's glands, urethra, Arbovale's glands, no vulvar lesions, good vaginal support, physiologic discharge present, normal appearing perineal body and perianal region. No cervical lesions. BIMANUAL: no adnexal masses and non-tender. uterus normal size, shape and consistency THE FOLLOWIN (more content not included)... Normal [facility] [place] 05-08-2021 CNPN Telephone (CAROLBMN) ---- ZAKIYA CUELLO ([id number]) 1975 F Date Time Provider Department 05/08/21 [...] 05-01-2021 OBSOLETE Refill (GYNMN) ---- ZAKIYA CUELLO ([id number]) 1975 F Date Time Provider Department 05/01/21 FATOUMATA WILD During your visit today, we recorded the following information about you: Cheryl Leigh RN 05/02/2021 1:29 PM Signed Attempted to call pt. Message left to call office. Please Verify Rx renewal and pharmacy. 11/14/20 Cheryl Leigh RN May 02, 2021 1:29 PM Zehra Etienne [facility] 05/02/2021 2:51 PM Signed Patient returning nurse call She do need refill She feell she might need a higher dosage because she still have breast shrinkage. Please call and advise the patient at [phone] Thank you Zehra Jiang E- [id number] [place] [address] - [address] [facility] [phone] [place] [address] Zehra Rivera RN 05/02/2021 3:33 PM Signed [...] CNOV Office Visit (DERMMN) ---- ZAKIYA CUELLO ([id number]) 1975 F Date Time Provider Department 04/22/21 [...] Past Histories independently gathered by the clinical operations support manager and the remaining scribed note [...] effluvium [L65.0] Order(s):ZINC BLD [SQZINC] Order #: [id number] FUTURE IRON + TIBC [SQIRON] Order #: [id number] FUTURE FERRITIN BLD [SQFERR] Order #: [id number] FUTURE VITAMIN D 25 HYDROXY [SQVITD] Order #: [id number] FUTURE Prescriptions as of 04/22/2021 Sig: (more content not included)... Normal [facility] Ferritinon 04-22-2021 Ferritin [Mass/Vol] 44.4 ng/mL Normal 14.7-205.1 [facility] Comment on above: Performed By: #### F ERR, ZINC, IRON, VITD ####[address] [phone] Iron and TIBCon 04-22-2021 Iron [Mass/Vol] 79 ug/dL Normal 41-186 [facility] Comment on above: Performed By: #### F ERR, ZINC, IRON, VITD ####[address] [phone] TIBC 382 ug/dL Normal 232-386 [facility] Comment on above: Performed By: #### F ERR, ZINC, IRON, VITD ####[address] [phone] Transferrin Saturatn 21 % Normal 15-57 [facility] Comment on above: Performed By: #### F ERR, ZINC, IRON, VITD ####[address] [phone] Vitamin D 25 Hydroxyon 04-22 Vitamin D 25 Hydroxy 32.7 ng/mL Normal 31.0-80.0 [facility] Comment on above: Result Comment: Clas sification of 25 [place] Vitamin D status: Insufficiency/Moderate Deficiency: < or = 30 ng/mL Sufficiency/Optimal Levels: 31 to 80 ng/mL Toxicity: > 100 ng/mL Test performed by chemiluminescent immunoassay. Performed By: #### F ERR, ZINC, IRON, VITD ####[facility] [place], [place] [phone] Zincon 04-22-2021 Zinc 79 ug/dL Normal 55-150 [facility] Comment on above: Result Comment: This test was developed and its performance characteristics determined by [facility]'s Robin [facility] [place] ([facility]). It has not been cleared or approved by the FDA. [facility] is regulated under CLIA as qualified to perform high complexity testing. This test is used for clinical purposes. It should not be regarded as investigational or for research. Performed By: #### F ERR, ZINC, IRON, VITD ####[facility] [address] [place], [place] [phone] Vital Signs Date Time Vital Sign Value Performing Clinician Faci litleonela 03-31-2023 10:35-0400 Body height 160.02 cm MD Eugenio Obrien Work Phone: [facility] 03-31-2023 10:35-0400 Body temperature 98 [degF] MD Eugenio Obrien Work Phone: [facility] 03-31-2023 10:35-0400 Body weight 77.7 kg MD Eugenio Obrien Work Phone: [facility] 03-31-2023 10:35-0400 Diastolic blood pressure 91 mm[Hg] MD Eugenio Obrien Work Phone: [facility] 03-31-2023 10:35-0400 Heart rate 73 /min MD Eugenio Obrien Work Phone: [facility] 03-31-2023 10:35-0400 Respiratory rate 16 /min MD Eugenio Obrien Work Phone: [facility] 03-31-2023 10:35-0400 SaO2% (BldA) [Mass fraction] 98 % MD Eugenio Obrien Work Phone: [facility] 03-31-2023 10:35-0400 Systolic blood pressure 151 mm[Hg] MD Eugenio Obrien Work Phone: [facility] 09-05-2022 18:50-0400 Diastolic blood pressure 88 mm[Hg] MD Eugenio Obrien Work Phone: [facility] 09-05-2022 18:50-0400 Heart rate 86 /min MD Eugenio Obrien Work Phone: [facility] 09-05-2022 18:50-0400 Respiratory rate 18 /min MD Eugenio Obrien Work Phone: [facility] 09-05-2022 18:50-0400 SaO2% (BldA) [Mass fraction] 99 % MD Eugenio Obrien Work Phone: [facility] 09-05-2022 18:50-0400 Systolic blood pressure 142 mm[Hg] MD Eugenio Obrien Work Phone: [facility] 09-05-2022 17:05-0400 Body height 166.37 cm MD Eugenio Obrien Work Phone: [facility] 09-05-2022 17:05-0400 Body temperature 98.1 [degF] MD Eugenio Obrien Work Phone: [facility] 09-05-2022 17:05-0400 Body weight 76 kg MD Eugenio Obrien Work Phone: [facility] Encounters Encounter Date Encounter Type Care Provider Facility Start: 02-07-2024 End: 02-08-2024 ambulatory Ramon Rivas MD Facility: [facility] Start: 12-27-2023 End: 12-28-2023 ambulatory Ramon Rivas MD Facility:[facility] Start: 11-01-2023 End: 11-02-2023 ambulatory Ramon Rivas MD Facility:[facility] Start: 10-04-2023 End: 10-05-2023 ambulatory Ramon Rivas MD Facility:[facility] Start: 07-21-2023 End: 07-21-2023 ambulatory Eugenio Obrien Facility:[facility] Start: 07-21-2023 End: 07-21-2023 ambulatory MD Eugenio Obrien Work Phone: [facility] Work Phone: Start: 07-21-2023 End: 07-21-2023 Patient encounter procedure MD Eugenio Obrien Work Phone: [facility] [place] Work Phone: Start: 06-02-2023 End: 06-02-2023 ambulatory [facility] Start: 04-30-2023 ambulatory ANDRIUS GIEDRAITIS Faci lity:[facility] Start: 04-30-2023 End: 05-01-2023 ambulatory Ramon Rivas MD Facility:[facility] Start: 03-31-2023 End: 03-31-2023 Emergency department patient visit Eugenio Obrien Facility:[facility] Start: 03-31-2023 End: 03-31-2023 Emergency department patient visit MD Eugenio Obrien Work Phone: [facility] Work Phone: Start: 03-25-2023 End: 03-25-2023 ambulatory MARYBEL SWANSON . Facility:[facility] Start: 12-18-2022 Telephone encounter Lake Dailey DO Work Phone: Ophthalmology Comment on above: Orders Start: 12-07-2022 End: 12-08-[address] EUGENIO OBRIEN . Facility:[facility] Start: 11-09-2022 Refill Fatoumata Wild MD Work Phone: Gynecology Comment on above: Refill Request Start: 11-06-2022 End: 11-06-2022 ambulatory Eugenio Obrien Facility:[facility] Start: 10-27-2022 End: 10-28-[address] EUGENIO OBRIEN . Facility:[facility] Start: 09-22-2022 End: 09-22-2022 ambulatory АЛЕКСАНДР GÓMEZ Facility:[facility] Start: 09-09-2022 End: 09-10-[address] EUGENIO OBRIEN . Facility:[facility] Start: 09-05-2022 End: 09-05-2022 Emergency department patient visit Eugenio Obrien Facility:[facility] Start: 09-05-2022 End: 09-05-2022 Emergency department patient visit MD Eugenio Obrien Work Phone: [facility] Start: 09-02-2022 End: 09-03-2022 [...] Author Start: 07-10-2025 LIPID SCREEN LIPID SCREEN [facility] Start: 07-21-2023 Dehydroepiandrosterone sulfate level [facility] Start: 07-21-[address] [facility] Start: 07-10-2023 DIABETES SCREEN DIABETES SCREEN [facility] Start: 11-29-2022 DEPRESSION ASSESSMENT DEPRESSION ASSESSMENT [facility] Start: 07-30-2022 Influenza vaccination INFLUENZA (#1) [facility] Start: 11-29-2021 DEPRESSION ASSESSMENT DEPRESSION ASSESSMENT [facility] Start: 08-07-2021 COVID-19 VACCINE (3 - Booster for Moderna series) COVID-19 VACCINE (3 - Booster for Moderna series) [facility] Start: 2018 COLOGUARD (FIT-DNA) COLOGUARD (FIT-DNA) [facility] Start: 2018 Colonoscopy COLONOSCOPY [facility] Start: 2018 COLORECTAL CANCER SCREENING COLORECTAL CANCER SCREENING [facility] Start: [address] COLONOGRAPHY [facility] Start: 2018 FECAL OCCULT BLOOD FECAL OCCULT BLOOD [facility] Start: 2018 SIGMOIDOSCOPY SIGMOIDOSCOPY [facility] Start: 2013 Mammography MAMMOGRAM [facility] Start: 1992 Urine microalbumin profile DTAP,TDAP,TD (1 - Tdap) [facility] Start: 1991 HEPATITIS C SCREENING HEPATITIS C SCREENING [facility] Start: 1991 HIV SCREENING HIV SCREENING [facility] Start: 1973 HEPATITIS B (1 of 3 - 3-dose series) HEPATITIS B (1 of 3 - 3-dose series) [facility] Patient Education [facility] Work Phone: Patient referral [facility] Work Phone: Testosterone Free [M ass/volume] in Serum or Plasma [facility] Payers Date Payer Category Payer Unknown 2022 Self-pay [id number] 2019 Medicaid [employer] [place] [id number] 2019-Present [phone] [address] [address] [place] [address] Medicaid [id number] 1973 Unknown [id number] 2.16.840.1.980514.3.579.2.593 1973 Unknown [id number] 2.16.840.1.805586.3.579.2.593 1973 Unknown [id number] 2.16.840.1.038809.3.579.2.593 1973 Unknown [id number] 2.16.840.1.264917.3.579.2.593 1973 Unknown [id number] 2.16.840.1.202142.3.579.2.593 1973 Unknown [id number] 2.16.840.1.287819.3.579.2.593 1973 Unknown [id number] 2.16.840.1.336241.3.579.2.593 1973 Unknown [id number] 2.16.840.1.682613.3.579.2.593 1973 Unknown [id number] 2.16.840.1.572408.3.579.2.593 1973 Unknown [id number] 2.16.840.1.591463.3.579.2.593 1973 Unknown [id number] 2.16.840.1.931017.3.579.2.593 1973 Unknown [id number] 2.16.840.1.410494.3.579.2.196 1973 Unknown [id number] 2.16.840.1.577208.3.579.2.196 1973 Unknown [id number] 2.16.840.1.243903.3.579.2.196 1973 Unknown [id number] 2.16.840.1.480564.3.579.2.196 1973 Unknown [id number] 2.16.840.1.317643.3.579.2.196 1959 Medicaid [id number] Self-pay [id number] Unknown [place] BC/BS [id number] Unknown [id number] 2.16.840.1.000778.3.579.2.531 Unknown [id number] 2.16.840.1.064711.3.579.2.531 Unknown [id number] .16.840.1.704943.3.579.2.531 Unknown [id number] 2.16.840.1.663125.3.579.2.531 Social History Date Type Detail Facility Start: 09-05-2022 End: 03-31-2023 Tobacco smoking status NHIS Never smoked tobacco (finding) [facility] Start: 1975 Sex Assigned At Female F [facility] Start: 06-10-2015 Tobacco use and exposure Smokeless tobacco non-user [facility] Start: 01-08-2022 Alcohol intake Current drinke r of alcohol (finding) [facility] Start: 10-25-2015 Alcohol Comment social [facility] Start: 1975 Sex Assigned At Not on file C [facility] Medical Equipment Procedure Code Equipment Code Equipment Origin al Text Equipment Identifier Dates [id number] Start: 07-01-2015 Clinical Notes 04-22-2021 to [...] a finger splint and referred to [facility] Ortho for further evaluation and treatment. In [...] Past Medical History: Diagnosis Date Diabetes mellitus ([facility]) Objective General: Body mass index is 28.52 kg/m???. There were no vitals filed for this visit. No acute distress, comfortable Respiratory: Unlabored breathing with normal rate, no cough Cardiovascular: Warm well perfused extremities Psych: Appropriate mood behavior Left Hand: Inspection- no ecchymosis, no edema, no effusion Tender to palpation over dorsal aspect left index finger DIP joint Strength: classification case manager deferred 2/2 pain, thumb 5/5, interossei [...] Patel MD Orthopedic Surgery Resident Physician Pager: [phone] 06/02/23 11:35 AM By using the attestations [...] be an additional personal documentation from me. [facility] 12-24-2022 Miscellaneous Notes Images from the original note were not included. Contacted the patient and left a message the prescription has been updated. Also faxed the prescription to [facility] [employer] as requested. Lake Ro, OD You 18 hours ago (4:03 PM) The patient's glasses prescription has been finalized and should be available on My Chart. You Lake Ro, OD 3 days ago CLAIRE Mckenna, is there any way you can release the manifest for the patient for their appointment with you 10/2021? Lake Dailey, DO Mckenzie Robles [facility] 4 days ago The patient was not refracted by us because she already has an blueprint processor (Dr Lake Ro) who takes care of her glasses. She should contact his office. [facility] calling for pts glasses prescription. Please fax to [phone]. Thank you! documented in this encounter [facility] 11-11-2022 Miscellaneous Notes Noted, thanks Phoned pt, verified name/ Advised pt she is very overdue for f/u appt with Dr. Wild LV 08/14/21, was to f/u in 3-4 mos [...] Troy Lubin RN documented in this encounter [facility] 01-08-2022 Note HNO ID: [id number] Author: Lake Dailey DO Service: ? Author [...] Dailey DO January 08, 2022 9:22 AM [facility] 12-09-2021 Note HNO ID: [id number] Author: Sonja Kurtz RT(R) Service: Radiology Author Type: Technologist Type: Progress [...] DATA: Not applicable SIGNED BY: Sonja Kurtz, (R) December 09, 2021 3:17 PM [facility] 12-09-2021 Note HNO ID: [id number] Author: Neeta Amador MD Service: ? Author [...] neuropathy-taking gabapentin Has been having nystagmus since COV and has been scheduled to see neurophthalmology [...] (human papilloma virus) infection - Hyperlipidemia 09/2015 [id number] - Migraine - Neuropathy Diagnosis made by [...] Lysis of adhesions.Monarc transobturator midurethral sling, ref [id number], lot [id number]. 4. Posterior repair. - REMOVAL ADENOIDS,PRIMARY,<12 Y/O [...] 500 mg t (more content not included)... [facility] 10-30-2021 Note HNO ID: [id number] Author: Lake Ro OD Service: ? Author Type: HEAD WAITRESS Type: Progress Notes Filed: 10/30/2021 9:59 AM [...] Ro, BILLY October 30, 2021 9:56 AM [facility] 10-20-2021 Note HNO ID: [id number] Author: Lake Ro, OD Service: ? Author Type: HEAD WAITRESS Type: Progress Notes Filed: 10/20/2021 9:06 AM [...] Ro, OD October 20, 2021 9:04 AM [facility] 08-15-2021 Note HNO ID: [id number] Author: Fatoumata Wild MD Service: ? Author Type: Physician Type: Progress Notes Filed: 08/14/2021 10:37 PM Note Text: I spent a total of 40+ minutes on the date of the service which included preparing to see the patient, [id number] patient care, completing clinical documentation, obtaining and/or reviewing separately obtained history, performing a medically appropriate examination, counseling and educating the patient/family/caregiver, ordering medications, tests, or procedures and independently interpreting results (not separately reported). [facility] 08-14-2021 Note HNO ID: [id number] Author: Fatoumata Wild MD Service: ? Author [...] (human papilloma virus) infection - Hyperlipidemia 09/2015 [id number] - Migraine - Neuropathy Diagnosis made by [...] Lysis of adhesions.Monarc transobturator midurethral sling, ref [id number], lot [id number]. 4. Posterior repair. 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 Warm, dry. ENDO: No obvious hirsutism signs. EYES: Conjunctivae clear. No discoloration. NECK: No mass LUNGS: Breathing comfortably without distress, CTAB HEART: RRR, no r/g ABDOMEN: Soft. NTND. No masses. PELVIC: external genitalia normal, normal Bartholin's glands, urethra, [place]'s glands, no vulvar lesions, good vaginal support, [...] 4-8 o'clock-severe, a (more content not included)... [facility] 04-22-2021 Note HNO ID: [id number] Author: Franklin Prather MD Service: ? Author [...] Past Histories independently gathered by the clinical operations support manager and the remaining scribed note [...] infection last year hair Franklin Prather MD [facility] Evaluation note No assessment inform ation available [facility] Work Phone: Hospital Discharge instructions Additional Instructions Follow-up with your primary care doctor Return to ED if develop worsening symptoms or concerns [facility] Work Phone: Summary Purpose Family [...] section and content) DATE CREATED AUTHOR 01/16/2022 [facility] DATE CREATED AUTHOR AUTHOR'S ORGANIZ ATION 04/09/2023 [facility] DATE CREATED AUTHOR AUTHOR'S ORGANIZ ATION 06/09/2023 [facility] DATE CREATED AUTHOR AUTHOR'S ORGANIZ ATION 07/30/2023 [facility] DATE CREATED AUTHOR AUTHOR'S ORGANIZ ATION 02/15/2024 [facility] Care Teams (unrecognized sec tion and content) Team Status: Active Member Role Status Dates Eugenio Obrien MD Primary Care Provider Active Team Status: Inactive Member Role Status Dates Eugenio Obrien MD Primary Care Provider Active Poli Vázquez APRN Emergency Provider Active Team Status: Inactive Member Role Status Dates Eugenio Obrien MD Primary Care Provider Active Brendan Mitchell DO Emergency Provider Active Webmethods Architect Relationship Specialty Start Date End Date Eugenio Obrien MD [address] [place] [address] PCP - General Family Medicine 07/05/20 Team [...] or prosecute any alcohol or drug abuse patient.[facility] the event this information is protected by the Federal Confidentiality of Alcohol and Drug Abuse Patient Records regulations: The Federal rules restrict any use of the information to criminally investigate or prosecute any alcohol or drug abuse patient.[facility] Reason for Visit (unrecogniz ed section and [...] BE BASED ON THE PRIMARY CLINICAL RECORDS. [facility] [employer] [facility] provides no warranty or guarantee of the accuracy or completeness of information in this document.
--- NOTE | 2024-08-20 11:57 | ED.SKABFB1 ---
HPI - Skin/Abscess/Foreign Bdy General Chief complaint: Skin/Abscess/Foreign Body Stated complaint: RASH ON THROAT AND UPPER LEFT EXTREMITY Time Seen by Provider: 08/20/24 11:51 Source: patient Mode of arrival: walk-in Limitations: no limitations History of Present Illness HPI narrative: 48-year-old female presents for an area of redness to her anterior neck and her left upper arm. She states there is a lot of spiders at work and she believes she got bit. No drainage or fever. She does not have any similar findings elsewhere on her body. She has had it for the last 2 days. Related Data Home Medications ?Medication ?Instructions ?Recorded ?Confirmed clobetasol 0.05 % scalp solution 1 applic topical DAILY 04/30/23 02/07/24 ferrous sulfate 143 mg (45 mg 143 mg PO DAILY 04/30/23 02/07/24 iron) tablet,extended release (Slow Release Iron) gabapentin 600 mg tablet 600 mg PO BID 04/30/23 02/07/24 liothyronine 5 mcg tablet 10 mcg PO DAILY 04/30/23 02/07/24 metoprolol succinate 100 mg 150 mg PO DAILY 04/30/23 02/07/24 tablet,extended release 24 hr pantoprazole 40 mg tablet,delayed 40 mg PO BID 04/30/23 02/07/24 release prazosin 5 mg capsule 5 mg PO DAILY 04/30/23 02/07/24 progesterone 100 mg PO .QD 04/30/23 02/07/24 simvastatin 40 mg tablet 40 mg PO DAILY 04/30/23 02/07/24 cholecalciferol (vitamin D3) 125 125 mcg PO DAILY 05/01/23 02/07/24 mcg (5,000 unit) capsule ezetimibe 10 mg tablet 10 mg PO DAILY 05/01/23 02/07/24 lurasidone 20 mg tablet (Latuda) 20 mg PO DAILY 05/01/23 02/07/24 albuterol 90 mcg/actuation aerosol 90 mcg inhalation Q4H PRN 05/02/23 02/07/24 inhaler shortness of breath budesonide-formoterol HFA 160 2 inh inhalation BID 05/02/23 02/07/24 mcg-4.5 mcg/actuation aerosol inhaler ketoconazole 2 % shampoo 1 applic topical DAILY 05/02/23 02/07/24 sucralfate 1 gram tablet 1 g PO Q6H 05/02/23 02/07/24 tiotropium bromide 1.25 2 inh inhalation DAILY 05/02/23 02/07/24 mcg/actuation mist for inhalation (Spiriva Respimat) levothyroxine 50 mcg tablet mcg 11/01/23 Previous Rx's ?Medication ?Instructions ?Recorded aspirin 325 mg tablet 81 mg (0.2492 x 325 mg) PO QD@0900 05/03/23 #30 tabs cephalexin 500 mg capsule 500 mg PO QID 10 days #40 caps 08/20/24 doxycycline hyclate 100 mg capsule 100 mg PO BID 10 days #20 caps 08/20/24 Allergies Allergy/AdvReac Type Severity Reaction Status Date / Time Sulfa (Sulfonamide Allergy Severe Anaphylaxis Verified 02/07/24 09:34 Antibiotics) clarithromycin [From Biaxin] AdvReac Severe Verified 02/07/24 09:34 lamotrigine [From Lamictal] AdvReac Severe Verified 02/07/24 09:34 Penicillins AdvReac Severe Verified 02/07/24 09:34 Review of Systems ROS Narrative A ten point review of systems is negative except as noted above. [facility] Medical History Acid reflux ?K21.9 - Gastro-esophageal reflux disease without esophagitis (ICD-10) Altered mental status ?R41.82 - Altered mental status, unspecified (ICD-10) Angina at rest ?I20.8 - Other forms of angina pectoris (ICD-10) Anxiety ?F41.9 - Anxiety disorder, unspecified (ICD-10) Aphasia ?R47.01 - Aphasia (ICD-10) Heartburn ?R12 - Heartburn (ICD-10) Hiatal hernia ?K44.9 - Diaphragmatic hernia without obstruction or gangrene (ICD-10) High cholesterol ?E78.00 - Pure hypercholesterolemia, unspecified (ICD-10) Loud snoring ?R06.83 - Snoring (ICD-10) Low back pain ?M54.50 - Low back pain, unspecified (ICD-10) Sinus tachycardia ?R00.0 - Tachycardia, unspecified (ICD-10) Sleep apnea ?G47.30 - Sleep apnea, unspecified (ICD-10) TMJ (temporomandibular joint syndrome) ?M26.609 - Unspecified temporomandibular joint disorder, unspecified side (ICD-10) Surgical History H/O: hysterectomy ?Z90.710 - Acquired absence of both cervix and uterus (ICD-10) S/P nasal surgery ?Z98.890 - Other specified postprocedural states (ICD-10) H/O tubal ligation ?Z98.51 - Tubal ligation status (ICD-10) H/O eye surgery ?Z98.890 - Other specified postprocedural states (ICD-10) History of tonsillectomy and adenoidectomy ?Z90.89 - Acquired absence of other organs (ICD-10) Social History Little interest or pleasure in doing things: not at all Feeling down, depressed, or hopeless: not at all Gender Identity: female Exam Narrative Exam Narrative: Nurses note and vital signs reviewed and patient is not hypoxic. General: The patient appears well and in no apparent distress. Patient is resting comfortably on cart. Skin: Warm, dry, no pallor noted. There is an area of erythema on her left bicep area. There is no raised area or open area or drainage. It is not hot to touch. She also has a slightly raised erythematous area on her anterior neck in the midline that is slightly smaller than the size of a dime. It is not fluctuant and there is no open area or drainage. Head: Normocephalic, atraumatic Eye: Normal conjunctiva, no drainage Ears, Nose, Mouth, and Throat: oral mucosa is moist. Nares patent. Cardiovascular: Regular Rate and Rhythm Respiratory: Patient is in no distress, no accessory muscle use, lungs are clear to auscultation, no wheezing, rales or rhonchi Back: non-tender GI: Soft and nontender Musculoskeletal: The patient has no evidence of calf tenderness, no pitting edema, symmetrical pulses noted bilaterally Neurological: Awake and alert Psychiatric: Cooperative Constitutional Vital Signs, click to edit/add: Last Vital Signs Temp 98.2 F 08/20/24 11:47 Pulse 90 08/20/24 11:47 Resp 16 08/20/24 11:47 BP 135/89 08/20/24 11:47 Pulse Ox 97 08/20/24 11:47 O2 Del Method Room Air 08/20/24 11:47 Course Vital Signs Vital signs: Vital Signs Temperature 98.2 F 08/20/24 11:47 Pulse Rate 90 08/20/24 11:47 Respiratory Rate 16 08/20/24 11:47 Blood Pressure 135/89 08/20/24 11:47 Pulse Oximetry 97 08/20/24 11:47 Oxygen Delivery Method Room Air 08/20/24 11:47 Temperature 98.2 F 08/20/24 11:47 Pulse Rate 90 08/20/24 11:47 Respiratory Rate 16 08/20/24 11:47 Blood Pressure 135/89 08/20/24 11:47 Pulse Oximetry 97 08/20/24 11:47 Oxygen Delivery Method Room Air 08/20/24 11:47 MDM - Skin/Abscess/Foreign Bdy MDM Narrative Medical decision making narrative: My clinical impression is that she has cellulitis. She is prescribed doxycycline and Keflex. Treatment diagnosis and follow-up were discussed with the patient. Differential Diagnosis Differential diagnosis: Likely abscess of skin or subcutaneous tissue, cellulitis and insect bites Discharge Plan Discharge Chief Complaint: Skin/Abscess/Foreign Body Clinical Impression: Cellulitis Patient Disposition: Home, Self-Care Time of Disposition Decision: 11:55 Condition: Good Mode of Transportation: Private Vehicle Prescriptions / Home Meds: New doxycycline hyclate 100 mg capsule 100 mg PO BID 10 Days Qty: 20 0RF cephalexin 500 mg capsule 500 mg PO QID 10 Days Qty: 40 0RF No Action progesterone 100 mg PO .QD gabapentin 600 mg tablet 600 mg PO BID metoprolol succinate 100 mg tablet extended release 24 hr 150 mg PO DAILY liothyronine 5 mcg tablet 10 mcg PO DAILY simvastatin 40 mg tablet 40 mg PO DAILY prazosin 5 mg capsule 5 mg PO DAILY pantoprazole 40 mg tablet,delayed release (DR/EC) 40 mg PO BID clobetasol 0.05 % solution 1 applic TOPICAL DAILY Rx Instructions: M- then off on the weekends Slow Release Iron 143 mg (45 mg iron) tablet extended release 143 mg PO DAILY cholecalciferol (vitamin D3) 125 mcg (5,000 unit) capsule 125 mcg PO DAILY ezetimibe 10 mg tablet 10 mg PO DAILY lurasidone [Latuda] 20 mg tablet 20 mg PO DAILY budesonide-formoterol 160-4.5 mcg/actuation HFA aerosol inhaler 2 inh inhalation BID Spiriva Respimat 1.25 mcg/actuation mist 2 inh inhalation DAILY sucralfate 1 gram tablet 1 g PO Q6H ketoconazole 2 % shampoo 1 applic topical DAILY Rx Instructions: WASH SCALP DAILY THEN RINSE albuterol 90 mcg/actuation aerosol 90 mcg inhalation Q4H PRN (Reason: shortness of breath) Rx Instructions: 2 PUFFS inhaled; aspirin 325 mg Tablet 81 mg PO QD@0900 Qty: 30 0RF levothyroxine 50 mcg tablet Print Language: Urdu Instructions: Cellulitis (ED), Warm Compress or Soak (ED) Additional Instructions: Warm soaks to these areas 4 times a day for 15 minutes. Referrals: Wan Obrien MD [Primary Care Provider] - 1 week
== END 2024-08-20 12:06 | disposition home or self-care (01) ==
PROVIDERS: Emergency Provider Emergency Medicine; PCP Family Medicine
DX: L03.90 Cellulitis, unspecified (principal)
CPT/HCPCS: 99283

== ENCOUNTER 2024-12-09 17:34 | Emergency (ER) | payer SELFPAY ==
[2024-12-09 17:41] VITALS: BP 143/99; PULSE 96; O2SAT 96; BMI 28.5
[2024-12-09 17:44] VITALS: TEMP 36.7
--- NOTE | 2024-12-09 19:38 | XR_ITS ---
[facility] [place] [id number] Patient Name: LARRY TAM MRN: [id number] date: 1975 Sex: F Assigned Patient Location: ED.MAIN Current Patient Location: ED.MAIN Accession/Order Number: [id number] Exam Date: 12/09/2024 20:20 Report Date: 12/09/2024 20:49 At the request of: JACOB OQUENDO Procedure: XR knee RT 3V PROCEDURE: XR knee RT 3V HISTORY: right lateral knee pain- Weight bearing if possib COMPARISON: None. FINDINGS: BONES:Mild narrowing of the medial joint space. No fracture, dislocation, or bone lesion. Small degenerative osteophyte along the inferior margin of the patella. SOFT TISSUES:No visible soft tissue swelling. EFFUSION:None visible. OTHER: Negative. XR/XR knee RT 3V IMPRESSION: 1. No acute bone abnormality. 2. Mild degenerative joint disease. Electronically authenticated by: MAX RAUSCH Date: 12/09/2024 20:49
--- NOTE | 2024-12-09 19:41 | ED_ITS ---
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 Patient notes she has difficulty squatting she denies any joint swelling she denies any fever or chills patient states she did not have insurance and after giving it a couple months did not know what else to do patient appears in no distress at rest but notes she has pain when her leg lays straight or when she bends. The pain to the ankle joint, hip joint and she denies any head or neck injury recently Context: Reports fall Associated symptoms: Denies swelling or numbness Related Data Home Medications ?Medication ?Instructions ?Recorded ?Confirmed clobetasol 0.05 % scalp solution 1 applic topical DAILY 04/30/23 02/07/24 ferrous sulfate 143 mg (45 mg 143 mg PO DAILY 04/30/23 02/07/24 iron) tablet,extended release (Slow Release Iron) gabapentin 600 mg tablet 600 mg PO BID 04/30/23 02/07/24 liothyronine 5 mcg tablet 10 mcg PO DAILY 04/30/23 02/07/24 metoprolol succinate 100 mg 150 mg PO DAILY 04/30/23 02/07/24 tablet,extended release 24 hr pantoprazole 40 mg tablet,delayed 40 mg PO BID 04/30/23 02/07/24 release prazosin 5 mg capsule 5 mg PO DAILY 04/30/23 02/07/24 progesterone 100 mg PO .QD 04/30/23 02/07/24 simvastatin 40 mg tablet 40 mg PO DAILY 04/30/23 02/07/24 cholecalciferol (vitamin D3) 125 125 mcg PO DAILY 05/01/23 02/07/24 mcg (5,000 unit) capsule ezetimibe 10 mg tablet 10 mg PO DAILY 05/01/23 02/07/24 lurasidone 20 mg tablet (Latuda) 20 mg PO DAILY 05/01/23 02/07/24 albuterol 90 mcg/actuation aerosol 90 mcg inhalation Q4H PRN 05/02/23 02/07/24 inhaler shortness of breath budesonide-formoterol HFA 160 2 inh inhalation BID 05/02/23 02/07/24 mcg-4.5 mcg/actuation aerosol inhaler ketoconazole 2 % shampoo 1 applic topical DAILY 05/02/23 02/07/24 sucralfate 1 gram tablet 1 g PO Q6H 05/02/23 02/07/24 tiotropium bromide 1.25 2 inh inhalation DAILY 05/02/23 02/07/24 mcg/actuation mist for inhalation (Spiriva Respimat) levothyroxine 50 mcg tablet mcg 11/01/23 Previous Rx's ?Medication ?Instructions ?Recorded aspirin 325 mg tablet 81 mg (0.2492 x 325 mg) PO QD@0900 05/03/23 #30 tabs cephalexin 500 mg capsule 500 mg PO QID 10 days #40 caps 08/20/24 doxycycline hyclate 100 mg capsule 100 mg PO BID 10 days #20 caps 08/20/24 diclofenac sodium 1 % topical gel 2 g topical BID #100 grams 12/09/24 (Arthritis Pain (diclofenac)) methylprednisolone 4 mg tablets in 4 mg PO DAILY #21 ea 12/09/24 a dose pack (Medrol (Judson)) Allergies Allergy/AdvReac Type Severity Reaction Status Date / Time Sulfa (Sulfonamide Allergy Severe Anaphylaxis Verified 02/07/24 09:34 Antibiotics) clarithromycin (From Biaxin) AdvReac Severe Verified 02/07/24 09:34 lamotrigine (From Lamictal) AdvReac Severe Verified 02/07/24 09:34 Penicillins AdvReac Severe Verified 02/07/24 09:34 Opioid HPI Opioid Management Most Recent Pain and Opioid Data: Last Pain Scale 7 12/09/24 20:00 12/09/24 Ur Phencyclidine Scrn Negative (NEGATIVE) 05/01/23 13:50 06/02/18 Review of Systems ROS Constitutional Denies: fever or chills Eyes Denies: change in vision or blurry vision Ears, nose, mouth, and throat Denies: throat pain or neck pain Cardiovascular Denies: chest pain or palpitations Respiratory Denies: shortness of breath or cough Gastrointestinal Denies: abdominal pain Musculoskeletal Reports: extremity pain (right knee); Denies: back pain or neck pain Neurological Denies: headache Psychiatric Denies: anxiety PFSH PFSH Medical History Acid reflux ?K21.9 - Gastro-esophageal reflux disease without esophagitis (ICD-10) Altered mental status ?R41.82 - Altered mental status, unspecified (ICD-10) Angina at rest ?I20.8 - Other forms of angina pectoris (ICD-10) Anxiety ?F41.9 - Anxiety disorder, unspecified (ICD-10) Aphasia ?R47.01 - Aphasia (ICD-10) Heartburn ?R12 - Heartburn (ICD-10) Hiatal hernia ?K44.9 - Diaphragmatic hernia without obstruction or gangrene (ICD-10) High cholesterol ?E78.00 - Pure hypercholesterolemia, unspecified (ICD-10) Loud snoring ?R06.83 - Snoring (ICD-10) Low back pain ?M54.50 - Low back pain, unspecified (ICD-10) Sinus tachycardia ?R00.0 - Tachycardia, unspecified (ICD-10) Sleep apnea ?G47.30 - Sleep apnea, unspecified (ICD-10) TMJ (temporomandibular joint syndrome) ?M26.609 - Unspecified temporomandibular joint disorder, unspecified side (ICD-10) Surgical History H/O: hysterectomy ?Z90.710 - Acquired absence of both cervix and uterus (ICD-10) S/P nasal surgery ?Z98.890 - Other specified postprocedural states (ICD-10) H/O tubal ligation ?Z98.51 - Tubal ligation status (ICD-10) H/O eye surgery ?Z98.890 - Other specified postprocedural states (ICD-10) History of tonsillectomy and adenoidectomy ?Z90.89 - Acquired absence of other organs (ICD-10) Social History Little interest or pleasure in doing things: not at all Feeling down, depressed, or hopeless: not at all Gender Identity: female Exam Narrative Exam Narrative: Vital signs reviewed and nurse's notes. The patient is not hypoxic. General: Alert, no acute distress, patient resting comfortably Skin: warm, intact, no pallor noted Head: Normocephalic, atraumatic Eye: Normal conjunctiva, no exudates Respiratory: No acute distress, lungs CTA Musculoskeletal: No evidence of deformity to the right knee. There is no swelling. There is no ecchymosis. No erythema or warmth noted. DP and PT pulses are intact 2+. Normal sensation, normal capillary refill less than 2 seconds. There is no cyanosis or mottling noted. The patient has tenderness to lateral aspect of the right knee involving distal portion of IT BAND and distal lateral hamstring insertion.. The patient has no laxity with varus or valgus stressing. The patient has negative anterior drawer and James testing. Neg [place]. The patient was able to flex and extend although with pain. Patient was able to extend leg off the cart without difficulty. No tenderness noted to the 5th MT, midfoot, ankle or proximal fibular area. There is no pain with calcaneal squeeze, achilles tendon is intact and no defect is palpated. The patient has no pelvic instability. The patient has no shortening or rotation noted to the bilateral lower extremities. + SLR at 30 degrees with pain L5 distribution ( but mostly lateral knee to hip) Neurological: alert and orient x4, normal sensory and motor observed. Psychiatric: Cooperative Constitutional Vital Signs, click to edit/add: Last Vital Signs Temp 98.1 F 12/09/24 17:44 Pulse 96 H 12/09/24 17:41 Resp 18 12/09/24 17:41 BP 143/99 H 12/09/24 17:41 Pulse Ox 96 12/09/24 17:41 O2 Del Method Room Air 12/09/24 17:41 Course Vital Signs Vital signs: Vital Signs Pulse Rate 96 H 12/09/24 17:41 Respiratory Rate 18 12/09/24 17:41 Blood Pressure 143/99 H 12/09/24 17:41 Pulse Oximetry 96 12/09/24 17:41 Oxygen Delivery Method Room Air 12/09/24 17:41 Temperature 98.1 F 12/09/24 17:44 Pulse Rate 96 H 12/09/24 17:41 Respiratory Rate 18 12/09/24 17:41 Blood Pressure 143/99 H 12/09/24 17:41 Pulse Oximetry 96 12/09/24 17:41 Oxygen Delivery Method Room Air 12/09/24 17:41 MDM - Extremity Injury (Lower) MDM Narrative Medical decision making narrative: Knee exam grossly benign I cannot reproduce any meniscal pathology patient has no signs or symptoms of joint effusion or infection symptoms of pain have been present for 2 months with tenderness mostly to the right distal lateral hamstring insertion and IT band pain does sometimes traverse a L5 radiculopathy and she does have a prior history of herniated disc in her back per patient. She is encouraged to follow-up with her family doctor and discuss potential physical therapy we discussed home treatment with stretching and ice ball massage patient will trial a prednisone taper and topical anti-inflammatory recheck with PCP as we performed x-rays today she will also be given the name of local orthopedist. The patient is to followup with primary care physician in next 2-3 days or to return to the emergency department should any of the signs or symptoms worsen or new symptoms develop. Patient had questions answered. The patient agrees with the following Diagnosis and Treatment plan and the patient will be discharged home. Imaging Data 3 view right knee: Attestation: I personally reviewed and interpreted this imaging study as follows: My impression: Mild narrowing medial joint line with flattening and subchondral sclerosis no significant effusion no evidence of fracture or dislocation Discharge Plan Discharge Chief Complaint: Extremity Injury, Lower Clinical Impression: Pain in lateral portion of right knee, Right hamstring muscle strain, Iliotibial band syndrome affecting right lower leg Patient Disposition: Home, Self-Care Time of Disposition Decision: 20:36 Condition: Good Prescriptions / Home Meds: New methylprednisolone [Medrol (Judson)] 4 mg tablets,dose pack 4 mg PO DAILY Qty: 21 0RF Rx Instructions: take per packet instructions diclofenac sodium [Arthritis Pain (diclofenac)] 1 % gel 2 g topical BID Qty: 100 0RF Rx Instructions: apply to right lateral knee. No Action progesterone 100 mg PO .QD gabapentin 600 mg tablet 600 mg PO BID metoprolol succinate 100 mg tablet extended release 24 hr 150 mg PO DAILY liothyronine 5 mcg tablet 10 mcg PO DAILY simvastatin 40 mg tablet 40 mg PO DAILY prazosin 5 mg capsule 5 mg PO DAILY pantoprazole 40 mg tablet,delayed release (DR/EC) 40 mg PO BID clobetasol 0.05 % solution 1 applic TOPICAL DAILY Rx Instructions: M- then off on the weekends Slow Release Iron 143 mg (45 mg iron) tablet extended release 143 mg PO DAILY cholecalciferol (vitamin D3) 125 mcg (5,000 unit) capsule 125 mcg PO DAILY ezetimibe 10 mg tablet 10 mg PO DAILY lurasidone [Latuda] 20 mg tablet 20 mg PO DAILY budesonide-formoterol 160-4.5 mcg/actuation HFA aerosol inhaler 2 inh inhalation BID Spiriva Respimat 1.25 mcg/actuation mist 2 inh inhalation DAILY sucralfate 1 gram tablet 1 g PO Q6H ketoconazole 2 % shampoo 1 applic topical DAILY Rx Instructions: WASH SCALP DAILY THEN RINSE albuterol 90 mcg/actuation aerosol 90 mcg inhalation Q4H PRN (Reason: shortness of breath) Rx Instructions: 2 PUFFS inhaled; aspirin 325 mg Tablet 81 mg PO QD@0900 Qty: 30 0RF levothyroxine 50 mcg tablet doxycycline hyclate 100 mg capsule 100 mg PO BID 10 Days Qty: 20 0RF cephalexin 500 mg capsule 500 mg PO QID 10 Days Qty: 40 0RF Print Language: Indonesian Instructions: Muscle Strain (ED) Referrals: Wan Obrien MD [Primary Care Provider] - As soon as possible Noe Randall MD [Physician] - As needed
[2024-12-09] MEDS: KETOROLAC TROMETHAMINE 60 MG/2 ML VIAL IM (20:00)
[2024-12-09] MEDS: PREDNISONE 20 MG TABLET 40 MG PO (20:00)
== END 2024-12-09 20:42 | disposition home or self-care (01) ==
PROVIDERS: Emergency Provider Emergency Medicine; PCP Family Medicine
DX: S86.811A Strain of other muscle(s) and tendon(s) at lower leg level, right leg, initial encounter (principal); M76.31 Iliotibial band syndrome, right leg; Z90.710 Acquired absence of both cervix and uterus; Z98.51 Tubal ligation status; M25.561 Pain in right knee; X50.1XXA Overexertion from prolonged static or awkward postures, initial encounter
CPT/HCPCS: 73562; 96372; 99284; J1885; J7512